=== PATIENT | female | born 1980 | race Caucasian/White ===

== ENCOUNTER 2017-12-05 16:52 | Emergency (ER) | payer OTHER, SELFPAY ==
--- NOTE | 2017-12-05 18:19 | EDPHYS ---
Physician Documentation [facility] Name: Susana Tamayo Age: 37 yrs Sex: Female : 1980 Arrival Date: 12/05/2017 Time: 16:58 Bed 13 Private MD: ED Physician Piero Velasquez HPI: 12/05 18:00 This 37 yrs old Female presents to ER via Ambulatory with complaints of pm1 Cramps. 18:00 The patient presents with Menstrual cramps. Onset: The symptoms/episode began/occurred pm1 yesterday. Associated signs and symptoms: Pertinent negatives: constipation, diarrhea, dysuria, fever, nausea, vomiting. Severity of symptoms: in the emergency department the symptoms are actually worse. The patient has experienced similar episodes in the past, and the symptoms today are exactly the same. The patient has not recently seen a physician. Patient complaining of increased vaginal cramping pain with her menses. Patient started her menses yesterday and reports that she usually takes Midol for her menstrual cramps. Midol did not work today so she presenting to the ER for further evalution. 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 - Social history:: Smoking status: Patient uses tobacco products, smokes one-half pack cigarettes per day. ROS: 18:00 Positive for Menstrual cramps. pm1 18:00 Constitutional: Negative for fever, chills, and weight loss, Eyes: Negative for injury, pain, redness, and discharge, ENT: Negative for injury, pain, and discharge, Neck: Negative for injury, pain, and swelling, Cardiovascular: Negative for chest pain, palpitations, and edema, Respiratory: Negative for shortness of breath, cough, wheezing, and pleuritic chest pain, Abdomen/GI: Negative for abdominal pain, nausea, vomiting, diarrhea, and constipation, Back: Negative for injury and pain. 18:00 MS/Extremity: Negative for injury and deformity, Skin: Negative for injury, rash, and discoloration, Neuro: Negative for headache, weakness, numbness, tingling, and seizure. Exam: 18:00 Constitutional: This is a well developed, well nourished patient who is awake, alert, pm1 and in no acute distress. Head/Face: Normocephalic, atraumatic. Eyes: Pupils equal round and reactive to light, extra-ocular motions intact. Lids and lashes normal. Conjunctiva and sclera are non-icteric and not injected. Cornea within normal limits. Periorbital areas with no swelling, redness, or edema. ENT: Nares patent. No nasal discharge, no septal abnormalities noted. Tympanic membranes are normal and external auditory canals are clear. Oropharynx with no redness, swelling, or masses, exudates, or evidence of obstruction, uvula midline. Mucous membranes moist. Neck: Trachea midline, no thyromegaly or masses palpated, and no cervical lymphadenopathy. Supple, full range of motion without nuchal rigidity, or vertebral point tenderness. No Meningismus. Chest/axilla: Normal chest wall appearance and motion. Nontender with no deformity. No lesions are appreciated. Cardiovascular: Regular rate and rhythm with a normal S1 and S2. No gallops, murmurs, or rubs. Normal PMI, no JVD. No pulse deficits. Respiratory: Lungs have equal breath sounds bilaterally, clear to auscultation and percussion. No rales, rhonchi or wheezes noted. No increased work of breathing, no retractions or nasal flaring. 18:00 Back: No spinal tenderness. No costovertebral tenderness. Full range of motion. Skin: Warm, dry with normal turgor. Normal color with no rashes, no lesions, and no evidence of cellulitis. MS/ Extremity: Pulses equal, no cyanosis. Neurovascular intact. Full, normal range of motion. 18:00 Abdomen/GI: Inspection: abdomen appears normal, Bowel sounds: normal, Palpation: abdomen is soft and non-tender, in all quadrants, mass, is not appreciated, rebound tenderness, is not appreciated. 18:00 Neuro: Orientation: is normal, Motor: is normal, moves all fours. Vital Signs: 17:10 BP 116 / 79; Pulse 90; Resp 18; Temp 98.4; Pulse Ox 98% on R/A; Weight 68.04 kg; Height aj 5 ft. 8 in. (172.72 cm); 18:00 BP 123 / 86; Pulse 82; Resp 17; Pulse Ox 98% on R/A; rb1 17:10 Body Mass Index 22.81 (68.04 kg, 172.72 cm) aj [facility]: 17:22 Patient medically screened. pm1 18:07 Data reviewed: vital signs. Data interpreted: Pulse oximetry: on room air is 98 %. pm1 Interpretation: normal. Counseling: I had a detailed discussion with the patient and/or guardian regarding: the historical points, exam findings, and any diagnostic results supporting the discharge/admit diagnosis, lab results, the need for outpatient follow up, for definitive care, an OB/Gyne specialist. 18:16 ED course: Patient does not want any blood work performed, patient's symptoms the same pm1 as prior menses with cramping but the cramping is more intense. Will discharge patient home with additional pain medications to take with her midol. 12/05 18:00 Order name: Urine Dipstick--Ancillary (enter results) bd 12/05 18:00 Order name: Urine --Ancillary (enter results) bd 12/05 17:40 Order name: Urine Dipstick-Ancillary (obtain specimen); Complete Time: 17:55 pm1 12/05 17:40 Order name: Urine Test (obtain specimen); Complete Time: 17:54 pm1 Administered Medications: No medications were administered Disposition: 12/06 07:34 Co-signature as Attending Physician, Piero Velasquez MD I agree with the assessment and ryann plan of care. Disposition: 12/05/17 18:19 Discharged to Home. Impression: Dysmenorrhea, unspecified. - Condition is Stable. - Discharge Instructions: Dysmenorrhea. - Prescriptions for Tramadol 50 mg Oral Tablet - take 1 tablet by ORAL route every 8 hours as needed; 12 tablet. - Work release form, Medication Reconciliation Form, Thank You Letter, Prescription Opioid Use form. - Follow up: Emergency Department; When: As needed; Reason: Worsening of condition. Follow up: Gen Navarro MD; When: 2 - 3 days; Reason: Recheck today's complaints, Continuance of care, Re-evaluation by your physician. - Problem is new. - Symptoms have improved. Signatures: Dispatcher [employer] Liz Garvey RN RN aj Anderson, Corey, MD MD cha Barber, Rebecca, RN RN rb1 Rashad Abarca, JOB ANALYST JOB ANALYST pm1
--- NOTE | 2017-12-05 18:19 | ER ---
Nurse's Notes [facility] Name: Susana Tamayo Age: 37 yrs Sex: Female : 1980 Arrival Date: 12/05/2017 Time: 16:58 Bed 13 Private MD: Diagnosis: Dysmenorrhea, unspecified Presentation: 12/05 17:08 Presenting complaint: Patient states: Painful menstrual cramps today, unrelieved by jack burger. Transition of care: patient was not received from another setting of care. Onset of symptoms was December 05, 2017. Care prior to arrival: None. 17:08 Method Of Arrival: Ambulatory aj 17:08 Acuity: DIMPLE 4 aj Triage Assessment: 17:10 General: Appears in no apparent distress. comfortable, Behavior is calm, cooperative, aj appropriate for age. Pain: Complains of pain in pelvis. Neuro: Level of Consciousness is awake, alert, obeys commands, Oriented to person, place, time, situation. Respiratory: Airway is patent Respiratory effort is even, unlabored, Respiratory pattern is regular, symmetrical. GI: Abdomen is non-distended, obese. : Reports cramping. Derm: Skin is intact, is healthy with good turgor, Skin is pink, warm \T\ dry. normal. 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 - Social history:: Smoking status: Patient uses tobacco products, smokes one-half pack cigarettes per day. Screenin:21 Abuse screen: Denies threats or abuse. Nutritional screening: No deficits noted. rb1 Tuberculosis screening: No symptoms or risk factors identified. Fall Risk None identified. Assessment: 17:21 General: Appears in no apparent distress. comfortable, Behavior is calm, cooperative, rb1 Denies fever. Pain: Complains of pain in pelvis Pain currently is 10 out of 10 on a pain scale. Pain began this morning. Neuro: Level of Consciousness is awake, alert, obeys commands, Oriented to person, place, time, situation. Cardiovascular: Capillary refill < 3 seconds is brisk in bilateral fingers. Respiratory: Airway is patent Respiratory effort is even, unlabored, Respiratory pattern is regular, symmetrical. GI: Bowel sounds present X 4 quads. Abd is soft Abdomen is tender to palpation in suprapubic area. : No signs and/or symptoms were reported regarding the genitourinary system. Derm: Skin is pink, warm \T\ dry. 18:19 Reassessment: Patient appears in no apparent distress at this time. No changes from rb1 previously documented assessment. Vital Signs: 17:10 BP 116 / 79; Pulse 90; Resp 18; Temp 98.4; Pulse Ox 98% on R/A; Weight 68.04 kg; Height aj 5 ft. 8 in. (172.72 cm); 18:00 BP 123 / 86; Pulse 82; Resp 17; Pulse Ox 98% on R/A; rb1 17:10 Body Mass Index 22.81 (68.04 kg, 172.72 cm) aj ED Course: 16:58 Patient arrived in ED. mr 17:09 Triage completed. aj 17:10 Arm band placed on left wrist. Patient placed in waiting room, Patient notified of wait aj time. 17:21 Rashad Abarca NP is PHCP. pm1 17:21 Piero Velasquez MD is Attending Physician. pm1 17:21 Patient has correct armband on for positive identification. Bed in low position. Call rb1 light in reach. Side rails up X 1. Pulse ox on. NIBP on. 17:24 Liat Wheat, RN is Primary Nurse. rb1 18:17 Gen Navarro MD is Referral Physician. pm1 18:28 No provider procedures requiring assistance completed. IV discontinued, intact, rb1 bleeding controlled, No redness/swelling at site. Pressure dressing applied. Administered Medications: No medications were administered Outcome: 18:19 Discharge ordered by . pm1 18:28 Discharged to home ambulatory. rb1 18:28 Condition: stable 18:28 Discharge instructions given to patient, Instructed on discharge instructions, follow up and referral plans. Demonstrated understanding of instructions, follow-up care, medications, Prescriptions given X 1. 18:29 Patient left the ED. rb1 Signatures: Liz Marion RN RN aj Rivera, Maria mr Liat Wheat RN RN rb1 Rashad Abarca NP CLINICAL PROVIDER TRAINER pm1 Corrections: (The following items were deleted from the chart) 18:28 17:10 Missed attempt(s): 22 gauge hand. antecubital area. Labs were collected by Yogi, rb1 windows server support technician, but the IV went bad upon flushing NS.. rb1
[2017-12-05 18:36] VITALS: TEMP 98.4; O2SAT 98
[2017-12-05 18:37] VITALS: BP 123/86
[2017-12-05 18:51] LABS: Urine Blood 1+ (NEG); Urine Glucose NEGATIVE (NEG); Urine Protein NEGATIVE (NEG); Urine Specific Gravity 1.015 (1.005-1.030); Urine pH 6.5 (5.0-7.0)
== END 2017-12-05 18:29 | disposition home or self-care (01) ==
LOC: ER 16:52
DX: N94.6 Dysmenorrhea, unspecified (principal); F17.210 Nicotine dependence, cigarettes, uncomplicated; Z88.6 Allergy status to analgesic agent
CPT/HCPCS: 81003; 81025; 99283

== ENCOUNTER 2017-12-13 13:35 | Emergency (ER) | payer OTHER ==
[2017-12-13] MEDS ORDERED: NA CHLORIDE 0.9% 1,000 ML ONE (14:14)
[2017-12-13] MEDS ORDERED: DIPHENHYDRAMINE 50 MG/ML VIAL ONE (14:14)
[2017-12-13] MEDS ORDERED: ACETAMINOPHEN 500 MG TAB ONE (14:14)
[2017-12-13] MEDS ORDERED: DEXAMETHASONE 10 MG/ML VIAL ONE (14:14)
--- NOTE | 2017-12-13 14:30 | RAD REPORT ---
EXAM DESCRIPTION: CT - Head Brain Wo Cont - 12/13/2017 2:14 pm CLINICAL HISTORY: Headache and nausea COMPARISON: 2013 TECHNIQUE: Computed axial tomography of the head was obtained. IV contrast was not requested. All CT scans are performed using dose optimization technique as appropriate and may include automated exposure control or mA/KV adjustment according to patient size. FINDINGS: An intracranial bleed is not seen . The ventricles are normal in caliber. No extra-axial fluid collection is noted. Fluid within the sinuses/ mastoids is not seen. IMPRESSION: No acute intracranial abnormality is seen. If patient's symptoms persist MRI of the bra in would be recommended.
[2017-12-13] MEDS ORDERED: KETOROLAC 30 MG/ML INJ ONE (14:37)
[2017-12-13 14:59] LABS: Absolute Lymphocytes (CBC) 1.2 K/uL (0.7-4.9); Absolute Monocytes 0.4 K/uL (0.1-1.3); Absolute Neutrophil 5.8 K/uL (1.8-8.0); Basophils % 0.5 % (0-1.3); Eosinophils % 2.1 % (0-4.4); Hematocrit 38.9 % (36.0-45.0); Lymphocytes % 15.4 % (15.3-44.8); MCH 31.1 pg (27.0-35.0); MCV 91.2 fL (80-100); MPV 7.3 fL (7.6-11.3); Monocytes % 5.7 % (3.3-12.3); RBC Red Blood Cell Count 4.27 M/uL (3.86-4.86)
[2017-12-13 15:00] LABS: Protime INR 1.06
[2017-12-13] MEDS ORDERED: METOCLOPRAMIDE 10 MG/2mL INJ IV ONE (15:00)
[2017-12-13] MEDS ORDERED: PROCHLORPERAZINE IV ONE (15:00)
[2017-12-13 15:27] LABS: Urine Bacteria <20 /HPF (<20); Urine Culture Reflex Order NOT NEEDED; Urine Mucus 1+ /HPF (NONE SEEN); Urine RBC <5 /HPF (NONE SEEN)
[2017-12-13 15:57] LABS: Potassium 3.3 mEq/L (3.6-5.0)
[2017-12-13 15:58] LABS: Magnesium 1.9 mg/dL (1.8-2.5)
[2017-12-13 16:32] LABS: Urine Blood NEGATIVE (NEG); Urine Glucose NEGATIVE (NEG); Urine Protein NEGATIVE (NEG); Urine Specific Gravity 1.025 (1.005-1.030)
--- NOTE | 2017-12-13 16:50 | ER ---
Nurse's Notes [facility] Name: Susana Tamayo Age: 37 yrs Sex: Female : 1980 Arrival Date: 12/13/2017 Time: 13:36 Bed 30 Private MD: Diagnosis: headache Presentation: 12/13 13:53 Presenting complaint:. ph 13:54 Presenting complaint: Patient states: I have had a migraine since yesterday." Pt ph reports pain in entire head, nausea, sensitivity to light/sound, denies dizziness or vomiting, hx of migraines. Transition of care: patient was not received from another setting of care. Onset of symptoms was December 13, 2017. Care prior to arrival: None. 13:54 Method Of Arrival: Ambulatory ph 13:54 Acuity: DIMPLE 3 ph Triage Assessment: 17:49 Headache History: The patient has had previous headaches and this one is similar to lk1 previous episodes. General: Appears uncomfortable. Pain: Pain began 1 day ago. Also complains of nausea, photophobia, inability to work. Pain: Complains of pain in head. 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 - Social history:: Smoking status: Patient uses tobacco products, smokes one-half pack cigarettes per day. - Family history:: not pertinent. - Hospitalizations: : No recent hospitalization is reported. Screenin:46 Abuse screen: Denies threats or abuse. Denies injuries from another. Nutritional lk1 screening: No deficits noted. Tuberculosis screening: No symptoms or risk factors identified. Fall Risk Total Kapoor Fall Scale indicates No Risk (0-24 pts). Assessment: 14:15 General: Appears uncomfortable, Behavior is calm, cooperative, appropriate for age. lk1 Pain: Complains of pain in head Pain currently is 10 out of 10 on a pain scale. Neuro: Level of Consciousness is awake, alert, obeys commands, Oriented to person, place, time, situation, Moves all extremities. Full function Gait is steady, Speech is normal, Facial symmetry appears normal, Pupils are PERRLA. Neuro: Reports headache since yesterday afternoon. Cardiovascular: Heart tones S1 S2 present Capillary refill is brisk Patient's skin is warm and dry. Respiratory: Airway is patent Respiratory effort is even, unlabored, Respiratory pattern is regular, symmetrical, Breath sounds are clear bilaterally. GI: Abdomen is non-distended, Bowel sounds present X 4 quads. : No signs and/or symptoms were reported regarding the genitourinary system. EENT: No signs and/or symptoms were reported regarding the EENT system. Derm: No signs and/or symptoms reported regarding the dermatologic system. Musculoskeletal: No signs and/or symptoms reported regarding the musculoskeletal system. 15:00 Reassessment: Patient and/or family updated on plan of care and expected duration. Pain lk1 level reassessed. Patient is alert, oriented x 3, equal unlabored respirations, skin warm/dry/pink. Patient states feeling better. 17:00 Reassessment: Patient and/or family updated on plan of care and expected duration. Pain lk1 level reassessed. Patient is alert, oriented x 3, equal unlabored respirations, skin warm/dry/pink. Patient states feeling better. Patient states symptoms have improved. General:. Vital Signs: 13:55 BP 120 / 83; Pulse 68; Resp 18; Temp 98.2; Pulse Ox 99% on R/A; Weight 72.57 kg; Height ph 5 ft. 8 in. (172.72 cm); Pain 10/10; 14:34 BP 112 / 65; Pulse 86; Resp 17; Temp 98.5(O); Pulse Ox 99% on R/A; mh5 15:25 BP 113 / 77; Pulse 73; Resp 15; Temp 98.5(O); Pulse Ox 97% ; mh5 16:19 BP 127 / 85; Pulse 73; Resp 17; Pulse Ox 97% on R/A; mh5 17:00 BP 120 / 82; Pulse 67; Resp 16; Pulse Ox 97% on R/A; Pain 8/10; lk1 13:55 Body Mass Index 24.33 (72.57 kg, 172.72 cm) ph ED Course: 13:36 Patient arrived in ED. as 13:42 Jerardo Booker MD is Attending Physician. wa 13:55 Triage completed. ph 14:11 Kluge, Reta, RN is Primary Nurse. lk1 14:14 CT Head Brain wo Cont In Process Unspecified. EDMS 14:35 Inserted saline lock: 20 gauge in right antecubital area, using aseptic technique. lk1 Blood collected. 14:41 Arm band placed on right wrist. lk1 14:46 Patient has correct armband on for positive identification. Placed in gown. Bed in low lk1 position. Call light in reach. Adult w/ patient. 16:49 Francisco Albert MD is Referral Physician. wa 17:49 No provider procedures requiring assistance completed. IV discontinued, intact, lk1 bleeding controlled, No redness/swelling at site. Pressure dressing applied. Administered Medications: 14:32 Drug: Tylenol 1000 mg Route: PO; lk1 15:30 Follow up: Response: No adverse reaction; Marked relief of symptoms; Pain is decreased lk1 14:35 Drug: NS 0.9% 1000 ml Route: IV; Rate: 1000 ml; Site: right antecubital; lk1 15:30 Follow up: Response: No adverse reaction; IV Status: Completed infusion lk1 14:36 Drug: Decadron - Dexamethasone 10 mg Route: IVP; Site: right antecubital; lk1 15:00 Follow up: Response: No adverse reaction; Marked relief of symptoms lk1 14:38 Drug: Benadryl 12.5 mg Route: IVP; Site: right antecubital; lk1 15:00 Follow up: Response: No adverse reaction; Marked relief of symptoms lk1 14:40 Drug: Reglan 5 mg Route: IVP; Site: right antecubital; lk1 15:00 Follow up: Response: No adverse reaction lk1 14:41 CANCELLED (Physician Discretion): Compazine 5 mg IVP once lk1 14:43 Drug: TORadol 30 mg Route: IVP; Site: right antecubital; lk1 15:00 Follow up: Response: No adverse reaction; Pain is decreased lk1 17:11 Drug: Potassium Chloride 40 mEq Route: PO; lk1 17:40 Follow up: Response: No adverse reaction lk1 Outcome: 16:49 Discharge ordered by . wa 17:45 Patient left the ED. lk1 17:50 Discharged to home ambulatory, with family. lk1 17:50 Condition: good 17:50 Discharge instructions given to patient, Instructed on discharge instructions, follow up and referral plans. medication usage, safety practices, Demonstrated understanding of instructions, follow-up care, medications, Prescriptions given X 2. Signatures: Dispatcher [employer] Marlene Crawford Patricia, RN RN Reta Palafox RN RN 1 Apple Tavares [facility] Jerardo Booker MD MD [place]
--- NOTE | 2017-12-13 16:50 | EDPHYS ---
Physician Documentation [facility] Name: Susana Tamayo Age: 37 yrs Sex: Female : 1980 Arrival Date: 12/13/2017 Time: 13:36 Bed 30 Private MD: ED Physician Jerardo Booker HPI: 12/13 16:31 This 37 yrs old Female presents to ER via Ambulatory with complaints of wa Headache. 16:31 The patient complains of pain to the diffuse. The patient describes the headache as wa aching, pounding. Onset: The symptoms/episode began/occurred 2 day(s) ago. Associated signs and symptoms: The patient has no apparent associated signs or symptoms. Severity of symptoms: At its worst the pain was moderate, in the emergency department the pain is unchanged. Headache History: The patient has had previous headaches and this one is similar to previous episodes. The symptoms are alleviated by nothing. the symptoms are aggravated by nothing. The patient has not experienced similar symptoms in the past. The patient has not recently seen a physician. 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 - Social history:: Smoking status: Patient uses tobacco products, smokes one-half pack cigarettes per day. - Family history:: not pertinent. - Hospitalizations: : No recent hospitalization is reported. ROS: 16:34 Constitutional: Negative for fever, chills, and weight loss, Eyes: Negative for injury, wa pain, redness, and discharge, ENT: Negative for injury, pain, and discharge, Neck: Negative for injury, pain, and swelling, Cardiovascular: Negative for chest pain, palpitations, and edema, Respiratory: Negative for shortness of breath, cough, wheezing, and pleuritic chest pain, Abdomen/GI: Negative for abdominal pain, nausea, vomiting, diarrhea, and constipation, Back: Negative for injury and pain, : Negative for injury, bleeding, discharge, and swelling, MS/Extremity: Negative for injury and deformity, Skin: Negative for injury, rash, and discoloration. 16:34 Neuro: Positive for headache, Negative for altered mental status, dizziness, gait disturbance, syncope. 16:34 All other systems are negative. Exam: 16:34 Constitutional: This is a well developed, well nourished patient who is awake, alert, wa and in no acute distress. Head/Face: Normocephalic, atraumatic. Eyes: Pupils equal round and reactive to light, extra-ocular motions intact. Lids and lashes normal. Conjunctiva and sclera are non-icteric and not injected. Cornea within normal limits. Periorbital areas with no swelling, redness, or edema. ENT: Nares patent. No nasal discharge, no septal abnormalities noted. Tympanic membranes are normal and external auditory canals are clear. Oropharynx with no redness, swelling, or masses, exudates, or evidence of obstruction, uvula midline. Mucous membranes moist. Neck: Trachea midline, no thyromegaly or masses palpated, and no cervical lymphadenopathy. Supple, full range of motion without nuchal rigidity, or vertebral point tenderness. No Meningismus. Cardiovascular: Regular rate and rhythm with a normal S1 and S2. No gallops, murmurs, or rubs. Normal PMI, no JVD. No pulse deficits. Respiratory: Lungs have equal breath sounds bilaterally, clear to auscultation and percussion. No rales, rhonchi or wheezes noted. No increased work of breathing, no retractions or nasal flaring. Abdomen/GI: Soft, non-tender, with normal bowel sounds. No distension or tympany. No guarding or rebound. No evidence of tenderness throughout. Back: No spinal tenderness. No costovertebral tenderness. Full range of motion. Skin: Warm, dry with normal turgor. Normal color with no rashes, no lesions, and no evidence of cellulitis. MS/ Extremity: Pulses equal, no cyanosis. Neurovascular intact. Full, normal range of motion. Psych: Awake, alert, with orientation to person, place and time. Behavior, mood, and affect are within normal limits. 16:34 Neuro: Orientation: is normal, Mentation: is normal, Cranial nerves: grossly normal, Cerebellar function: is grossly normal, Motor: is normal. Vital Signs: 13:55 BP 120 / 83; Pulse 68; Resp 18; Temp 98.2; Pulse Ox 99% on R/A; Weight 72.57 kg; Height ph 5 ft. 8 in. (172.72 cm); Pain 10/10; 14:34 BP 112 / 65; Pulse 86; Resp 17; Temp 98.5(O); Pulse Ox 99% on R/A; mh5 15:25 BP 113 / 77; Pulse 73; Resp 15; Temp 98.5(O); Pulse Ox 97% ; mh5 16:19 BP 127 / 85; Pulse 73; Resp 17; Pulse Ox 97% on R/A; mh5 17:00 BP 120 / 82; Pulse 67; Resp 16; Pulse Ox 97% on R/A; Pain 8/10; lk1 13:55 Body Mass Index 24.33 (72.57 kg, 172.72 cm) ph MDM: 13:42 Patient medically screened. tn 16:35 Differential diagnosis: WRIGHT, intermittent. [address] in the past. will check tn CT brain. will treat pain and reassess. Data reviewed: vital signs, nurses notes. Test interpretation: by ED physician or midlevel provider: . 16:47 Test interpretation: by ED physician or midlevel provider: labs noted for low K. Head wa CT negative for acute process. Response to treatment: the patient's symptoms have markedly improved after treatment, the patient's symptoms have resolved after treatment. ED course: will d/c home with close f/u with neurology. 12/13 14:03 Order name: Urine Microscopic Only; Complete Time: 16:14 12/13 14:03 Order name: Basic Metabolic Panel; Complete Time: 16:14 12/13 14:03 Order name: CBC with Diff; Complete Time: 16:14 12/13 14:03 Order name: Magnesium; Complete Time: 16:14 12/13 14:03 Order name: Protime (+inr); Complete Time: 16:14 12/13 15:23 Order name: Urine Dipstick--Ancillary (enter results) 12/13 14:03 Order name: CT Head Brain wo Cont; Complete Time: 14:33 12/13 15:23 Order name: Urine --Ancillary (enter results) 12/13 14:03 Order name: Urine Test (obtain specimen); Complete Time: 14:46 12/13 14:03 Order name: IV Saline Lock; Complete Time: 14:45 12/13 14:03 Order name: Labs collected and sent; Complete Time: 14:45 tn 12/13 14:03 Order name: NPO; Complete Time: 14:45 tn 12/13 14:03 Order name: O2 Sat Monitoring; Complete Time: 14:45 tn 12/13 14:03 Order name: Urine Dipstick-Ancillary (obtain specimen); Complete Time: 14:45 tn Administered Medications: 14:32 Drug: Tylenol 1000 mg Route: PO; lk1 15:30 Follow up: Response: No adverse reaction; Marked relief of symptoms; Pain is decreased lk1 14:35 Drug: NS 0.9% 1000 ml Route: IV; Rate: 1000 ml; Site: right antecubital; lk1 15:30 Follow up: Response: No adverse reaction; IV Status: Completed infusion lk1 14:36 Drug: Decadron - Dexamethasone 10 mg Route: IVP; Site: right antecubital; lk1 15:00 Follow up: Response: No adverse reaction; Marked relief of symptoms lk1 14:38 Drug: Benadryl 12.5 mg Route: IVP; Site: right antecubital; lk1 15:00 Follow up: Response: No adverse reaction; Marked relief of symptoms lk1 14:40 Drug: Reglan 5 mg Route: IVP; Site: right antecubital; lk1 15:00 Follow up: Response: No adverse reaction lk1 14:41 CANCELLED (Physician Discretion): Compazine 5 mg IVP once lk1 14:43 Drug: TORadol 30 mg Route: IVP; Site: right antecubital; lk1 15:00 Follow up: Response: No adverse reaction; Pain is decreased lk1 17:11 Drug: Potassium Chloride 40 mEq Route: PO; lk1 17:40 Follow up: Response: No adverse reaction lk1 Disposition: 12/13/17 16:49 Discharged to Home. Impression: headache. - Condition is Stable. - Discharge Instructions: General Headache Without Cause, [id number]. - Prescriptions for ketorolac 10 mg Oral tablet - take 1 tablet by ORAL route every 8 hours not to exceed 40 mg in 24hrs; 20 tablet. Compazine 10 mg Oral Tablet - take 1 tablet by ORAL route every 8 hours As needed; 10 tablet. - Work release form, Medication Reconciliation Form, Thank You Letter, Antibiotic Education, Prescription Opioid Use form. - Follow up: [place], [place], MD; When: 2 - 3 days; Reason: Recheck today's complaints. - Problem is new. - Symptoms have improved. - Notes: follow up with the neurologist as discussed. take the medicines prescribed as needed for pain Signatures: Dispatcher [employer] EDConsuelo Rios RN RN Reta Palafox RN RN lk1 Jerardo Booker MD MD wa Corrections: (The following items were deleted from the chart) 14:41 14:05 Compazine 5 mg IVP once ordered. cammy lk1
[2017-12-13] MEDS ORDERED: POTASSIUM CL SA 10 MEQ TAB PO ONE (16:55)
[2017-12-13 17:54] VITALS: TEMP 98.5
[2017-12-13 17:55] VITALS: O2SAT 97
[2017-12-13 17:57] VITALS: BP 120/82
== END 2017-12-13 17:45 | disposition home or self-care (01) ==
LOC: ER 13:35
DX: R51 Headache (principal); F17.210 Nicotine dependence, cigarettes, uncomplicated; Z88.6 Allergy status to analgesic agent
CPT/HCPCS: 36415; 70450; 80048; 81003; 81015; 81025; 83735; 85025; 85610; 96361; 96374; 96375; 99284; J1100; J2765; J7030

== ENCOUNTER 2018-02-15 16:52 | Emergency (ER) | payer OTHER, SELFPAY ==
[2018-02-15] MEDS ORDERED: NA CHLORIDE 0.9% 1,000 ML ONE (17:51)
[2018-02-15 18:04] LABS: Urine Blood NEGATIVE (NEG); Urine Glucose NEGATIVE (NEG); Urine Protein NEGATIVE (NEG); Urine Specific Gravity <1.005 (1.005-1.030); Urine pH 5.5 (5.0-7.0)
[2018-02-15 18:11] LABS: Absolute Lymphocytes (CBC) 1.6 K/uL (0.7-4.9); Absolute Monocytes 0.6 K/uL (0.1-1.3); Absolute Neutrophil 5.8 K/uL (1.8-8.0); Basophils % 0.5 % (0-1.3); Eosinophils % 2.7 % (0-4.4); Lymphocytes % 19.4 % (15.3-44.8); MCH 31.4 pg (27.0-35.0); MCV 91.3 fL (80-100); MPV 7.3 fL (7.6-11.3); Monocytes % 6.9 % (3.3-12.3); RBC Red Blood Cell Count 4.16 M/uL (3.86-4.86)
[2018-02-15 18:20] LABS: Bicarbonate 26 mEq/L (21-31); Glucose Level 105 mg/dL (65-120); Potassium 3.5 mEq/L (3.6-5.0); Sodium Level 134 mEq/L (135-145); Urine Bacteria <20 /HPF (<20); Urine Culture Reflex Order NOT NEEDED; Urine RBC <5 /HPF (NONE SEEN)
[2018-02-15 18:35] LABS: BUN Blood Urea Nitrogen < 5 mg/dL (6-20)
[2018-02-15] MEDS ORDERED: AZITHROMYCIN 250 MG TAB ONE (18:49)
[2018-02-15] MEDS ORDERED: KETOROLAC 30 MG/ML INJ ONE (18:50)
[2018-02-15] MEDS ORDERED: CEFTRIAXONE/SWI 1gm 1 GM/10 ML SYR ONE (18:51)
--- NOTE | 2018-02-15 18:52 | RAD REPORT ---
EXAM DESCRIPTION: US - Transvaginal Study Probe - 02/15/2018 6:31 pm CLINICAL HISTORY: Pelvic pain COMPARISON: none FINDINGS: The uterus measures 8 x 4 x 5cm. A 2 centimeter echogenic structure is present within the uterine fundus. The endometrial stripe measures 8 millimeters. The ovaries are normal in size and echotexture. A 1.7 centimeter follicle is present within the right ovary which is irregularly shaped. No significant free fluid is seen. IMPRESSION: 1.7 centimeter irregularly-shaped right ovarian follicle may have recently ruptured. Sig nificant free fluid is not noted. Possible 2 centimeter uterine fibroid
--- NOTE | 2018-02-15 19:09 | EDPHYS ---
Physician Documentation [facility] Name: Susana Tamayo Age: 37 yrs Sex: Female : 1980 Arrival Date: 02/15/2018 Time: 16:56 Bed 20 Private MD: None, None ED Physician Kyle Bae HPI: 02/15 17:42 This 37 yrs old Female presents to ER via Ambulatory with complaints of cp Vaginal Pain. 17:42 The patient presents with pelvic pain, that is located in/on the pelvis. cp 17:42 Onset: The symptoms/episode began/occurred today. cp 17:42 Associated signs and symptoms: Pertinent positives: pain worse when urinating but cp patient denies burning with urination, Pertinent negatives: fever. 17:42 The patient is sexually active, does not use protection during intercourse, patient cp reports new partner. The patient's method of control includes tubal ligation. 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 - Social history:: Smoking status: Patient uses tobacco products, smokes one-half pack cigarettes per day. - Ebola Screening: : Patient denies travel to an Ebola-affected area in the 21 days before illness onset. ROS: 17:50 Constitutional: Negative for body aches, chills, fever, poor PO intake. cp 17:50 Eyes: Negative for injury, pain, redness, and discharge. cp 17:50 ENT: Negative for drainage from ear(s), ear pain, sore throat, difficulty swallowing, difficulty handling secretions. 17:50 Cardiovascular: Negative for chest pain, edema, palpitations. 17:50 Respiratory: Negative for cough, shortness of breath, wheezing. 17:50 Abdomen/GI: Negative for nausea, vomiting, and diarrhea, abdominal cramps, black/tarry stool, rectal bleeding. 17:50 : Positive for pelvic pain, vaginal pain, Negative for urinary symptoms, vaginal bleeding, vaginal discharge. 17:50 Skin: Negative for cellulitis, rash. 17:50 Neuro: Negative for altered mental status, headache, weakness. 17:50 All other systems are negative. Exam: 18:00 Constitutional: The patient appears in no acute distress, alert, awake, non-toxic, well cp developed, well nourished. 18:00 Head/Face: Normocephalic, atraumatic. cp 18:00 Eyes: Periorbital structures: appear normal, Conjunctiva: normal, no exudate, no injection, Sclera: no appreciated abnormality, Lids and lashes: appear normal, bilaterally. 18:00 ENT: External ear(s): are unremarkable, Nose: is normal, Mouth: is normal, no lip abnormalities, no mucosal abnormalities, Posterior pharynx: is normal, airway is patent, no erythema, no exudate. 18:00 Neck: ROM/movement: is normal, is supple, without pain, no range of motions limitations. 18:00 Chest/axilla: Inspection: normal, Palpation: is normal, no crepitus, no tenderness. 18:00 Cardiovascular: Rate: normal, Rhythm: regular. 18:00 Respiratory: the patient does not display signs of respiratory distress, Respirations: normal, no use of accessory muscles, no retractions, no splinting, no tachypnea. 18:00 Abdomen/GI: Inspection: abdomen appears normal, Bowel sounds: active, all quadrants, Palpation: soft, in all quadrants, mild abdominal tenderness, in the suprapubic area, rebound tenderness, is not appreciated, voluntary guarding, is not appreciated, involuntary guarding, is not appreciated. 18:00 Back: pain, is absent, ROM is normal. 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 18:00 Skin: cellulitis, is not appreciated, no rash present. Vital Signs: 17:05 BP 137 / 89; Pulse 98; Resp 18; Temp 98.5(O); Pulse Ox 97% on R/A; Height 5 ft. 8 in. aj1 (172.72 cm) (R); Pain 10/10; MDM: 17:11 Patient medically screened. cp 18:00 Differential diagnosis: ectopic , ovarian cyst, pelvic inflammatory disease, cp urinary tract infection, vaginosis. 19:07 Data reviewed: vital signs, nurses notes, lab test result(s), radiologic studies, cp ultrasound. Counseling: I had a detailed discussion with the patient and/or guardian regarding: the historical points, exam findings, and any diagnostic results supporting the discharge/admit diagnosis, lab results, radiology results, the need for outpatient follow up, an OB/Gyne specialist. 02/15 17:26 Order name: Urine Microscopic Only; Complete Time: 18:41 cp 02/15 17:26 Order name: GC (GONORR/CHLAMYDIA) Probe cp 02/15 17:26 Order name: Wet Prep; Complete Time: 18:41 cp 02/15 17:26 Order name: Urine Dipstick--Ancillary (enter results); Complete Time: 18:41 iw 02/15 17:32 Order name: Test, Serum; Complete Time: 18:41 iw 02/15 18:41 Interpretation: Reviewed. cp 02/15 17:44 Order name: CBC with Diff; Complete Time: 18:41 cp 02/15 18:41 Interpretation: Normal except: MPV 7.3. cp 02/15 17:26 Order name: Urine Dipstick-Ancillary (obtain specimen); Complete Time: 17:26 cp 02/15 17:44 Order name: US Transvaginal Study (Probe); Complete Time: 19:06 cp 02/15 17:44 Order name: BMP; Complete Time: 18:41 cp 02/15 18:41 Interpretation: Normal except: NA 134; K 3.5; BUN < 5. cp 02/15 17:26 Order name: Pelvic Exam Setup; Complete Time: 17:31 cp Administered Medications: 17:45 Drug: NS 0.9% 1000 ml Route: IV; Rate: 1 bolus; Site: right antecubital; hj 19:24 Follow up: Response: No adverse reaction; IV Status: Completed infusion; IV Intake: jd3 1000ml 18:42 Drug: Zithromax 1 grams Route: PO; hj 18:54 Follow up: Response: No adverse reaction hj 18:42 Drug: Rocephin - (cefTRIAXone) 1 grams Route: IVPB; Infused Over: 30 mins; Site: right hj antecubital; 18:54 Follow up: IV Status: Completed infusion hj 18:42 Drug: TORadol 30 mg Route: IVP; Site: right antecubital; hj 18:54 Follow up: Response: No adverse reaction; Pain is decreased Disposition: 02/15/18 19:09 Discharged to Home. Impression: Abdominal and pelvic pain. - Condition is Stable. - Discharge Instructions: Pelvic Pain, Female, Abdominal Pain, Women. - Prescriptions for Ibuprofen 800 mg Oral Tablet - take 1 tablet by ORAL route every 8 hours As needed take with food; 30 tablet. Doxycycline Hyclate 100 mg Oral Tablet - take 1 tablet by ORAL route every 12 hours; 20 tablet. Metronidazole 500 mg Oral Tablet - take 1 tablet by ORAL route every 8 hours; 30 tablet. - Medication Reconciliation Form, Thank You Letter, Antibiotic Education, Prescription Opioid Use form. - Follow up: Joseph Walton MD; When: 1 week; Reason: Recheck today's complaints. - Problem is new. - Symptoms have improved. Addendum: 02/20/2018 11:15 Co-signature as Attending Physician, Kyle Bae MD. r n Signatures: Dispatcher [employer] EDMeron Mcallister RN RN aj1 Kyle Bae MD MD rn Joaquin, Henry, RN RN hj Page, Corey, PA PA cp Yung Molina RN RN jd3 Corrections: (The following items were deleted from the chart) 02/15 17:29 17:26 Urine Test ordered. cp 19:25 19:09 02/15/2018 19:09 Discharged to Home. Impression: Abdominal and pelvic pain. jd3 Condition is Stable. Forms are Medication Reconciliation Form, Thank You Letter, Antibiotic Education, Prescription Opioid Use. Follow up: Joseph Walton; When: 1 week; Reason: Recheck today's complaints. Problem is new. Symptoms have improved. cp 02/16 17:39 02/15 17:42 Associated signs and symptoms: Pertinent positives: cp cp
--- NOTE | 2018-02-15 19:09 | ER ---
Nurse's Notes [facility] Name: Susana Tamayo Age: 37 yrs Sex: Female : 1980 Arrival Date: 02/15/2018 Time: 16:56 Bed 20 Private MD: None, None Diagnosis: Abdominal and pelvic pain Presentation: 02/15 17:00 Presenting complaint: Patient states: Stabbing pain in the vagina that is worse when aj1 she urinates since about 10:00 this morning. Denies burning with urination, vaginal discharge, vaginal bleeding. Transition of care: patient was not received from another setting of care. Onset of symptoms was February 15, 2018 at 10:00. Risk Assessment: Do you want to hurt yourself or someone else? Patient reports no desire to harm self or others. Initial Sepsis Screen: Does the patient meet any 2 criteria? No. Patient's initial sepsis screen is negative. Does the patient have a suspected source of infection? No. Patient's initial sepsis screen is negative. Care prior to arrival: None. 17:00 Method Of Arrival: Ambulatory aj 17:00 Acuity: DIMPLE 3 aj1 Triage Assessment: 17:05 General: Appears in no apparent distress. comfortable, Behavior is calm, cooperative, aj1 appropriate for age. Pain: Complains of pain in pelvis Pain does not radiate. Pain currently is 10 out of 10 on a pain scale. Quality of pain is described as shooting, stabbing, Pain began 5 hours ago Is continuous, Alleviated by nothing. Aggravated by urination. 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 - Social history:: Smoking status: Patient uses tobacco products, smokes one-half pack cigarettes per day. - Ebola Screening: : Patient denies travel to an Ebola-affected area in the 21 days before illness onset. Screenin:09 Abuse screen: Denies threats or abuse. Denies injuries from another. Nutritional hj screening: No deficits noted. Tuberculosis screening: No symptoms or risk factors identified. Fall Risk None identified. Assessment: 17:10 General: Appears in no apparent distress. uncomfortable, Behavior is calm, cooperative, hj appropriate for age. Pain: Complains of pain in vaginal opening. Neuro: Level of Consciousness is awake, alert, obeys commands, Oriented to person, place, time, situation, Appropriate for age. Cardiovascular: Capillary refill < 3 seconds Patient's skin is warm and dry. Respiratory: Airway is patent Respiratory effort is even, unlabored, Respiratory pattern is regular, symmetrical. GI: No signs and/or symptoms were reported involving the gastrointestinal system. : EENT: No signs and/or symptoms were reported regarding the EENT system. Derm: No deficits noted. No signs and/or symptoms reported regarding the dermatologic system. Musculoskeletal: No signs and/or symptoms reported regarding the musculoskeletal system. 17:30 Reassessment: Piero Marie notified that urine specific gravity was <1.005 and UPT will iw be invalid, advised to draw serum if needed. 19:24 Reassessment: Patient appears in no apparent distress at this time. No changes from jd3 previously documented assessment. Patient and/or family updated on plan of care and expected duration. Pain level reassessed. Patient is alert, oriented x 3, equal unlabored respirations, skin warm/dry/pink. pt reported understanding of discharge instructions, even and steady gait upon discharge. Patient states feeling better. Vital Signs: 17:05 BP 137 / 89; Pulse 98; Resp 18; Temp 98.5(O); Pulse Ox 97% on R/A; Height 5 ft. 8 in. aj1 (172.72 cm) (R); Pain 10/10; ED Course: 16:56 Patient arrived in ED. mr 16:56 None, None is Private Physician. mr 17:04 Triage completed. aj1 17:05 Arm band placed on Patient placed in an exam room. aj1 17:09 Jeyson Marley, IBETH is Primary Nurse. hj 17:10 Piero Marie PA is PHCP. cp 17:10 Patient has correct armband on for positive identification. Placed in gown. Bed in low hj position. Call light in reach. Side rails up X 1. 17:11 Kyle Bae MD is Attending Physician. cp 17:53 Wet Prep Sent. ag 17:53 GC (GONORR/CHLAMYDIA) Probe Sent. ag 17:53 Test, Serum Sent. ag 17:54 US Transvaginal Study (Probe) Sent. ag 17:54 CBC with Diff Sent. ag 17:54 BMP Sent. ag 17:54 Urine Microscopic Only Sent. ag 17:55 Assist provider with pelvic exam: Set up pelvic tray. Performed by Piero vaughan Specimens sent to lab. Patient tolerated well. Inserted saline lock: 20 gauge in right antecubital area, using aseptic technique. Blood collected. 18:28 US Transvaginal Study (Probe) In Process Unspecified. EDMS 19:08 Joseph Walton MD is Referral Physician. cp 19:23 IV discontinued, intact, bleeding controlled, No redness/swelling at site. Pressure jd3 dressing applied. Administered Medications: 17:45 Drug: NS 0.9% 1000 ml Route: IV; Rate: 1 bolus; Site: right antecubital; hj 19:24 Follow up: Response: No adverse reaction; IV Status: Completed infusion; IV Intake: jd3 1000ml 18:42 Drug: Zithromax 1 grams Route: PO; hj 18:54 Follow up: Response: No adverse reaction hj 18:42 Drug: Rocephin - (cefTRIAXone) 1 grams Route: IVPB; Infused Over: 30 mins; Site: right hj antecubital; 18:54 Follow up: IV Status: Completed infusion hj 18:42 Drug: TORadol 30 mg Route: IVP; Site: right antecubital; hj 18:54 Follow up: Response: No adverse reaction; Pain is decreased hj Intake: 19:24 IV: 1000ml; Total: 1000ml. jd3 Outcome: 19:09 Discharge ordered by . cp 19:23 Discharged to home ambulatory, with family. jd3 19:23 Condition: stable 19:23 Discharge instructions given to patient, family, Instructed on discharge instructions, follow up and referral plans. medication usage, Demonstrated understanding of instructions, follow-up care, medications, Prescriptions given X 3. 19:25 Patient left the ED. jd3 Signatures: Dispatcher [employer] EDMS Merno Chowdhury RN RN aj1 Rivera, Maria mr Zina Suh RN RN iw Gallardo, Ana ag Joaquin, Henry, RN RN hj Page, Corey, PA PA cp Davies, Ynug, RN RN jd3
[2018-02-15 19:44] VITALS: BP 137/89; TEMP 98.5; O2SAT 97
[2018-02-18 20:06] LABS: C.trachomatis RNA,TMA Not Detected (Not Detected)
== END 2018-02-15 19:25 | disposition home or self-care (01) ==
LOC: ER 16:52
DX: R10.2 Pelvic and perineal pain (principal); Z88.5 Allergy status to narcotic agent; F41.9 Anxiety disorder, unspecified; J45.909 Unspecified asthma, uncomplicated; F32.9 Major depressive disorder, single episode, unspecified; K21.9 Gastro-esophageal reflux disease without esophagitis; G43.909 Migraine, unspecified, not intractable, without status migrainosus; F17.210 Nicotine dependence, cigarettes, uncomplicated
CPT/HCPCS: 36415; 76830; 80048; 81003; 81015; 84703; 85025; 87210; 87490; 87590; 96361; 96374; 96375; 99284; J0696; J7030

== ENCOUNTER 2019-05-18 12:00 | Emergency (ER) | payer SELFPAY ==
[2019-05-18 13:55] LABS: Urine Blood TRACE (NEG); Urine Glucose NEGATIVE (NEG); Urine Protein NEGATIVE (NEG); Urine pH 6.5 (5.0-7.0)
[2019-05-18] MEDS ORDERED: DIPHENHYDRAMINE 50 MG/ML VIAL ONE (15:06)
[2019-05-18] MEDS ORDERED: METOCLOPRAMIDE 10 MG/2mL INJ ONE (15:06)
[2019-05-18] MEDS ORDERED: KETOROLAC 30 MG/ML INJ ONE (15:06)
[2019-05-18] MEDS ORDERED: NA CHLORIDE 0.9% 1,000 ML ONE (15:07)
--- NOTE | 2019-05-18 15:15 | RAD REPORT ---
EXAM DESCRIPTION: CT - Head Brain Wo Cont - 05/18/2019 2:59 pm CLINICAL HISTORY: Headache COMPARISON: 2018 TECHNIQUE: Computed axial tomography of the head was obtained. IV contrast was not requested. All CT scans are performed using dose optimization technique as appropriate and may include automated exposure control or mA/KV adjustment according to patient size. FINDINGS: An intracranial bleed is not seen . The ventricles are normal in caliber. No extra-axial fluid collection is noted. Fluid within the sinuses/ mastoids is not seen. IMPRESSION: No acute intracranial abnormality is seen. If patient's symptoms persist MRI of the bra in would be recommended.
--- NOTE | 2019-05-18 16:29 | EDPHYS ---
Physician Documentation [facility] Name: Susana Tamayo Age: 39 yrs Sex: Female : 1980 Arrival Date: 05/18/2019 Time: 12:04 Bed 27 Private MD: ED Physician Sebas Mccollum HPI: 05/18 14:17 This 39 yrs old Female presents to ER via Ambulatory with complaints of pm1 Migraine. 14:17 The patient complains of pain to the forehead, right eye and left eye. The patient pm1 describes the headache as aching. 14:17 Onset: The symptoms/episode began/occurred 2 day(s) ago. Associated signs and symptoms: pm1 Pertinent positives: nausea, Photophobia Pertinent negatives: dizziness, neck stiffness, paresthesias, rash, vomiting, weakness. Severity of symptoms: in the emergency department the pain is actually worse. Headache History: The patient has had previous headaches and this one is different than previous episodes. The symptoms are alleviated by Darkened room, the symptoms are aggravated by lights. The patient has experienced similar episodes in the past, several times. The patient has not recently seen a physician, and does not have an established primary care provider. Patient hasn't taken her migraine headache medications for over 2 years. Historical: - Allergies: 12:06 Darvocet-N 100; sg - PMHx: 12:06 Anxiety; Asthma; Depression; GERD; Migraines; sg - PSHx: 12:06 shoulder surgery; Tubal ligation; sg - Immunization history:: Adult Immunizations up to date. - Social history:: Smoking status: Patient/guardian denies using tobacco. - Ebola Screening: : Patient negative for fever greater than or equal to 101.5 degrees Fahrenheit, and additional compatible Ebola Virus Disease symptoms Patient denies exposure to infectious person Patient denies travel to an Ebola-affected area in the 21 days before illness onset No symptoms or risks identified at this time. ROS: 14:17 Constitutional: Negative for fever, chills, and weight loss, Eyes: Negative for injury, pm1 pain, redness, and discharge, ENT: Negative for injury, pain, and discharge, Neck: Negative for injury, pain, and swelling, Cardiovascular: Negative for chest pain, palpitations, and edema, Respiratory: Negative for shortness of breath, cough, wheezing, and pleuritic chest pain, Abdomen/GI: Negative for abdominal pain, nausea, vomiting, diarrhea, and constipation, Back: Negative for injury and pain, MS/Extremity: Negative for injury and deformity, Skin: Negative for injury, rash, and discoloration. 14:17 Neuro: Positive for headache, Negative for altered mental status, numbness, tingling. Exam: 14:17 Constitutional: This is a well developed, well nourished patient who is awake, alert, pm1 and in no acute distress. Head/Face: Normocephalic, atraumatic. Eyes: Pupils equal round and reactive to light, extra-ocular motions intact. Lids and lashes normal. Conjunctiva and sclera are non-icteric and not injected. Cornea within normal limits. Periorbital areas with no swelling, redness, or edema. ENT: Nares patent. No nasal discharge, no septal abnormalities noted. Tympanic membranes are normal and external auditory canals are clear. Oropharynx with no redness, swelling, or masses, exudates, or evidence of obstruction, uvula midline. Mucous membranes moist. Neck: Trachea midline, no thyromegaly or masses palpated, and no cervical lymphadenopathy. Supple, full range of motion without nuchal rigidity, or vertebral point tenderness. No Meningismus. Chest/axilla: Normal chest wall appearance and motion. Nontender with no deformity. No lesions are appreciated. Cardiovascular: Regular rate and rhythm with a normal S1 and S2. No gallops, murmurs, or rubs. Normal PMI, no JVD. No pulse deficits. Respiratory: Lungs have equal breath sounds bilaterally, clear to auscultation and percussion. No rales, rhonchi or wheezes noted. No increased work of breathing, no retractions or nasal flaring. Abdomen/GI: Soft, non-tender, with normal bowel sounds. No distension or tympany. No guarding or rebound. No evidence of tenderness throughout. Back: No spinal tenderness. No costovertebral tenderness. Full range of motion. Skin: Warm, dry with normal turgor. Normal color with no rashes, no lesions, and no evidence of cellulitis. MS/ Extremity: Pulses equal, no cyanosis. Neurovascular intact. Full, normal range of motion. 14:17 Neuro: Orientation: is normal, Mentation: is normal, Memory: is normal, Cranial nerves: CN II- XII are normal as tested, Motor: moves all fours, Sensation: is normal, no obvious gross deficits. Vital Signs: 12:10 BP 133 / 86; Pulse 77; Resp 16; Temp 98.2; Pulse Ox 99% ; Pain 7/10; sg 14:45 BP 137 / 97; Pulse 70; Resp 15; Pulse Ox 99% on R/A; tr5 15:45 BP 125 / 88; Pulse 73; Resp 16; Pulse Ox 100% on R/A; tr5 MDM: 14:17 Patient medically screened. pm1 16:28 Data reviewed: vital signs. Data interpreted: Pulse oximetry: on room air is 100 %. pm1 Interpretation: normal. 16:39 Counseling: I had a detailed discussion with the patient and/or guardian regarding: the pm1 historical points, exam findings, and any diagnostic results supporting the discharge/admit diagnosis, radiology results, the need for outpatient follow up, a neurologist, to return to the emergency department if symptoms worsen or persist or if there are any questions or concerns that arise at home. 05/18 13:46 Order name: Urine Dipstick--Ancillary (enter results); Complete Time: 14:17 eb 05/18 13:46 Order name: Urine --Ancillary (enter results); Complete Time: 14:17 eb 05/18 14:39 Order name: CT Head Brain wo Cont; Complete Time: 15:22 pm1 05/18 14:39 Order name: IV Saline Lock; Complete Time: 16:17 pm1 Administered Medications: 15:27 Drug: Benadryl 25 mg Route: IVP; Site: left antecubital; tr5 16:12 Follow up: Response: Marked relief of symptoms tr5 15:27 Drug: NS 0.9% 1000 ml Route: IV; Rate: 1000 ml; Site: left antecubital; tr5 15:28 Drug: TORadol 30 mg Route: IVP; Site: left antecubital; tr5 16:13 Follow up: Response: No adverse reaction; Marked relief of symptoms tr5 15:29 Drug: Reglan 10 mg Route: IVP; Site: left antecubital; tr5 16:13 Follow up: Response: No adverse reaction; Marked relief of symptoms tr5 Disposition: 05/18/19 16:28 Discharged to Home. Impression: Headache. - Condition is Stable. - Discharge Instructions: General Headache Without Cause, Migraine Headache. - Prescriptions for Fiorinal 50- 325-40 mg Oral Capsule - take 1 capsule by ORAL route every 4 hours As needed - not to exceed 6 capsules per day; 20 capsule. - Medication Reconciliation Form, Thank You Letter, Antibiotic Education, Prescription Opioid Use, Work release form form. - Follow up: Emergency Department; When: As needed; Reason: Worsening of condition. Follow up: Private Physician; When: 2 - 3 days; Reason: Recheck today's complaints, Continuance of care, Re-evaluation by your physician. - Problem is new. - Symptoms have improved. Addendum: 05/20/2019 09:54 Co-signature as Attending Physician, Sebas Mccollum MD I agree with the assessment and k dr plan of care. Signatures: Dispatcher [employer] EDMS Brian Eid RN RN Sebas Mccollum MD MD kdr Rashad Abarca NP BLADE CHANGER pm1 Khurram Gregorio RN RN tr5 Corrections: (The following items were deleted from the chart) 05/18 16:39 14:17 Counseling: I had a detailed discussion with the patient and/or guardian pm1 regarding: the historical points, exam findings, and any diagnostic results supporting the discharge/admit diagnosis, radiology results, the need for outpatient follow up, a neurologist, to return to the emergency department if symptoms worsen or persist or if there are any questions or concerns that arise at home, pm1 16:48 16:28 05/18/2019 16:28 Discharged to Home. Impression: Headache. Condition is Stable. tr5 Forms are Medication Reconciliation Form, Thank You Letter, Antibiotic Education, Prescription Opioid Use. Follow up: Emergency Department; When: As needed; Reason: Worsening of condition. Follow up: Private Physician; When: 2 - 3 days; Reason: Recheck today's complaints, Continuance of care, Re-evaluation by your physician. Problem is new. Symptoms have improved. pm1
--- NOTE | 2019-05-18 16:29 | ER ---
Nurse's Notes [facility] Name: Susana Tamayo Age: 39 yrs Sex: Female : 1980 Arrival Date: 05/18/2019 Time: 12:04 Bed 27 Private MD: Diagnosis: Headache Presentation: 05/18 12:06 Transition of care: patient was not received from another setting of care. Onset of sg symptoms was May 18, 2019. Risk Assessment: Do you want to hurt yourself or someone else? Patient reports no desire to harm self or others. Initial Sepsis Screen: Does the patient meet any 2 criteria? No. Patient's initial sepsis screen is negative. Does the patient have a suspected source of infection? No. Patient's initial sepsis screen is negative. Care prior to arrival: None. 12:06 Acuity: DIMPLE 3 sg 12:06 Method Of Arrival: Ambulatory sg 12:11 Presenting complaint: Patient states: Pain in entire head, reports a hx of migraine but sg has not had any medication for several years due to not having a PCP, reports the pain is worse today then before but denies any pain in the neck or shoulders, denies N/V/D/Fever at this time. Triage Assessment: 13:51 General: Appears in no apparent distress. well groomed, well developed, well nourished, sg Behavior is calm, cooperative, appropriate for age. Historical: - Allergies: 12:06 Darvocet-N 100; sg - PMHx: 12:06 Anxiety; Asthma; Depression; GERD; Migraines; sg - PSHx: 12:06 shoulder surgery; Tubal ligation; sg - Immunization history:: Adult Immunizations up to date. - Social history:: Smoking status: Patient/guardian denies using tobacco. - Ebola Screening: : Patient negative for fever greater than or equal to 101.5 degrees Fahrenheit, and additional compatible Ebola Virus Disease symptoms Patient denies exposure to infectious person Patient denies travel to an Ebola-affected area in the 21 days before illness onset No symptoms or risks identified at this time. Screenin:45 Abuse screen: Denies threats or abuse. Nutritional screening: No deficits noted. tr5 Tuberculosis screening: No symptoms or risk factors identified. Fall Risk None identified. Assessment: 14:45 General: Appears uncomfortable, Behavior is calm, cooperative, appropriate for age. tr5 Pain: Complains of pain in face Pain does not radiate. Pain currently is 8 out of 10 on a pain scale. Quality of pain is described as aching, Pain began 1 day ago. Is continuous. Neuro: Level of Consciousness is awake, alert, obeys commands, Oriented to person, place, time, Compound Coating Machine Offbearer are equal bilaterally Moves all extremities. Reports headache in entire. Cardiovascular: Heart tones present Capillary refill < 3 seconds Pulses are all present. Edema is absent. Respiratory: Airway is patent Respiratory effort is even, unlabored, Respiratory pattern is regular, symmetrical. GI: No signs and/or symptoms were reported involving the gastrointestinal system. : No signs and/or symptoms were reported regarding the genitourinary system. EENT: No signs and/or symptoms were reported regarding the EENT system. Derm: Skin is intact, Skin is dry, Skin is normal, Skin temperature is warm. Musculoskeletal: Capillary refill < 3 seconds, Range of motion: intact in all extremities. 15:45 Reassessment: Patient appears in no apparent distress at this time. Patient and/or tr5 family updated on plan of care and expected duration. Pain level reassessed. Patient is alert, oriented x 3, equal unlabored respirations, skin warm/dry/pink. Vital Signs: 12:10 BP 133 / 86; Pulse 77; Resp 16; Temp 98.2; Pulse Ox 99% ; Pain 7/10; sg 14:45 BP 137 / 97; Pulse 70; Resp 15; Pulse Ox 99% on R/A; tr5 15:45 BP 125 / 88; Pulse 73; Resp 16; Pulse Ox 100% on R/A; tr5 ED Course: 12:04 Patient arrived in ED. rg4 12:06 Arm band placed on. sg 12:07 Triage completed. sg 13:51 Urine collected: clean catch specimen, raina colored. sg 14:11 Khurram Gregorio, IBETH is Primary Nurse. tr5 14:15 Rashad Abarca NP is PHCP. pm1 14:15 Sebas Mccollum MD is Attending Physician. pm1 14:45 Bed in low position. Call light in reach. Side rails up X 1. tr5 15:00 CT Head Brain wo Cont In Process Unspecified. EDMS 15:00 Inserted saline lock: 22 gauge in left antecubital area, using aseptic technique. tr5 16:46 No provider procedures requiring assistance completed. IV discontinued. tr5 Administered Medications: 15:27 Drug: Benadryl 25 mg Route: IVP; Site: left antecubital; tr5 16:12 Follow up: Response: Marked relief of symptoms tr5 15:27 Drug: NS 0.9% 1000 ml Route: IV; Rate: 1000 ml; Site: left antecubital; tr5 15:28 Drug: TORadol 30 mg Route: IVP; Site: left antecubital; tr5 16:13 Follow up: Response: No adverse reaction; Marked relief of symptoms tr5 15:29 Drug: Reglan 10 mg Route: IVP; Site: left antecubital; tr5 16:13 Follow up: Response: No adverse reaction; Marked relief of symptoms tr5 Outcome: 16:28 Discharge ordered by MD. pm1 16:46 Discharged to home ambulatory. tr5 16:46 Condition: stable 16:46 Discharge instructions given to patient, Instructed on discharge instructions, follow up and referral plans. medication usage, Demonstrated understanding of instructions, follow-up care, medications. 16:48 Patient left the ED. tr5 Signatures: Dispatcher [employer] EDBrian Kulkarni RN RN sg Marinas, Patrick, NP MACHINE PAN GREASER pm1 Mary Bolton rg4 Khurram Gregorio RN RN tr5
[2019-05-18 18:54] VITALS: TEMP 98.2
[2019-05-18 18:57] VITALS: BP 125/88; O2SAT 100
== END 2019-05-18 16:48 | disposition home or self-care (01) ==
LOC: ER 12:00
DX: R51 Headache (principal); Z88.5 Allergy status to narcotic agent
CPT/HCPCS: 70450; 81003; 81025; 96374; 96375; 99284; J2765; J7030

== ENCOUNTER 2019-10-16 22:40 | Emergency (ER) | payer SELFPAY ==
--- NOTE | 2019-10-17 00:02 | ER ---
Nurse's Notes [facility] Name: Susana Tamayo Age: 39 yrs Sex: Female : 1980 Arrival Date: 10/16/2019 Time: 22:45 Bed 15 Private MD: Diagnosis: Conjunctivitis-left eye;Acute upper respiratory infection, unspecified Presentation: 10/16 22:54 Presenting complaint: Patient states: redness and itching to L eye since she woke up aa1 this morning and has a cough for several days as well. Transition of care: patient was not received from another setting of care. Onset of symptoms was September 12, 2019. Risk Assessment: Do you want to hurt yourself or someone else? Patient reports no desire to harm self or others. Initial Sepsis Screen: Does the patient meet any 2 criteria? No. Patient's initial sepsis screen is negative. Does the patient have a suspected source of infection? No. Patient's initial sepsis screen is negative. Care prior to arrival: None. 22:54 Method Of Arrival: Ambulatory aa1 22:54 Acuity: DIMPLE 4 aa1 Triage Assessment: 22:56 General: Appears in no apparent distress. comfortable, Behavior is calm, cooperative, aa1 appropriate for age. Pain: Denies pain. Historical: - Allergies: 22:56 Darvocet-N 100; aa1 - Home Meds: 22:56 None [Active]; aa1 - PMHx: 22:56 Anxiety; Asthma; Depression; GERD; Migraines; aa1 - PSHx: 22:56 shoulder surgery; Tubal ligation; aa1 - Immunization history:: Flu vaccine is not up to date. - Coronavirus screen:: The patient has NOT traveled to [place] in the past 14 days. Proceed with normal triage process as indicated. - Social history:: Smoking status: Patient reports the use of cigarette tobacco products, smokes one-half pack cigarettes per day. - Ebola Screening: : Patient denies exposure to infectious person Patient denies travel to an Ebola-affected area in the 21 days before illness onset. Screenin:30 Abuse screen: Denies threats or abuse. Denies injuries from another. Nutritional ls4 screening: No deficits noted. Tuberculosis screening: No symptoms or risk factors identified. Fall Risk None identified. Assessment: 22:48 General: Appears in no apparent distress. uncomfortable, Behavior is calm, cooperative. ls4 Neuro: No deficits noted. Cardiovascular: No deficits noted. Respiratory: No deficits noted. GI: No deficits noted. : No deficits noted. EENT: Eyes are tearing on inner aspect of conjunctiva of left eye Sclera/Cornea are reddened in outer aspect of conjuctiva of left eye and inner aspect of conjunctiva of left eye Reports. Derm: No deficits noted. Musculoskeletal: No deficits noted. 23:41 Reassessment: Patient appears in no apparent distress at this time. Patient and/or ls4 family updated on plan of care and expected duration. Pain level reassessed. Patient is alert, oriented x 3, equal unlabored respirations, skin warm/dry/pink. 10/17 00:17 Reassessment: Patient appears in no apparent distress at this time. Patient and/or ls4 family updated on plan of care and expected duration. Pain level reassessed. Patient is alert, oriented x 3, equal unlabored respirations, skin warm/dry/pink. Vital Signs: 10/16 22:56 BP 147 / 88; Pulse 91; Resp 18; Temp 97.5; Pulse Ox 99% on R/A; Weight 81.65 kg; Height aa1 5 ft. 8 in. (172.72 cm); Pain 0/10; 10/17 00:21 BP 123 / 88; Pulse 88; Resp 18; Pulse Ox 99% on R/A; wh 10/16 22:56 Body Mass Index 27.37 (81.65 kg, 172.72 cm) aa1 ED Course: 10/16 22:45 Patient arrived in ED. ag3 22:49 Piero Marie PA is PHCP. cp 22:49 Kyle Bae MD is Attending Physician. cp 22:50 Arm band placed on. ls4 22:52 Patient placed in an exam room, on a stretcher. aa1 22:55 Triage completed. aa1 23:00 Patient has correct armband on for positive identification. Bed in low position. Call light in reach. Side rails up X 1. Pulse ox on. NIBP on. 23:03 Mary Ramirez, RN is Primary Nurse. ls4 23:08 Strep Sent. ls4 23:08 Influenza Screen (a \T\ B) Sent. ls4 02/13 00:19 No provider procedures requiring assistance completed. ls4 00:21 No provider procedures requiring assistance completed. Patient did not have IV access during this emergency room visit. Administered Medications: No medications were administered Outcome: 00:00 Discharge ordered by . marie 00:18 Discharged to home ambulatory, with family. anastacio 00:18 Condition: stable 00:18 Discharge instructions given to patient, family, Instructed on discharge instructions, follow up and referral plans. medication usage, POC Demonstrated understanding of instructions, follow-up care, medications, POC Prescriptions given X 2. 00:22 Patient left the ED. Signatures: Whitney Vasquez, RN RN aa1 Piero Marie PA PA cp Habalo, Winsy Thais Farfan ag3 Mary Ramirez, RN RN ls4
--- NOTE | 2019-10-17 00:05 | EDPHYS ---
Physician Documentation [facility] Name: Susana Tamayo Age: 39 yrs Sex: Female : 1980 Arrival Date: 10/16/2019 Time: 22:45 Bed 15 Private MD: ED Physician Kyle Bae HPI: 10/16 23:00 This 39 yrs old Female presents to ER via Ambulatory with complaints of Eye cp Problem. 23:00 The patient is experiencing matting or discharge, redness, to the left eye. Onset: The cp symptoms/episode began/occurred today. Associated signs and symptoms: Pertinent positives: cough, sore throat, Pertinent negatives: fever, headache. Patient wears glasses. Severity of symptoms: in the emergency department the symptoms are unchanged despite home interventions. Historical: - Allergies: 22:56 Darvocet-N 100; aa1 - Home Meds: 22:56 None [Active]; aa1 - PMHx: 22:56 Anxiety; Asthma; Depression; GERD; Migraines; aa1 - PSHx: 22:56 shoulder surgery; Tubal ligation; aa1 - Immunization history:: Flu vaccine is not up to date. - Coronavirus screen:: The patient has NOT traveled to [place] in the past 14 days. Proceed with normal triage process as indicated. - Social history:: Smoking status: Patient reports the use of cigarette tobacco products, smokes one-half pack cigarettes per day. - Ebola Screening: : Patient denies exposure to infectious person Patient denies travel to an Ebola-affected area in the 21 days before illness onset. ROS: 23:05 Constitutional: Negative for body aches, chills, fever, poor PO intake. cp 23:05 Eyes: Positive for redness, of the left eye. cp 23:05 ENT: Positive for sore throat, Negative for drainage from ear(s), ear pain, difficulty swallowing, difficulty handling secretions. 23:05 Respiratory: Positive for cough, Negative for shortness of breath, wheezing. 23:05 Abdomen/GI: Negative for abdominal pain, vomiting, diarrhea, constipation. 23:05 Skin: Negative for rash. 23:05 Neuro: Negative for headache. 23:05 All other systems are negative. Exam: 23:20 Head/Face: Normocephalic, atraumatic. cp 23:20 Constitutional: The patient appears in no acute distress, alert, awake, non-toxic, well developed, well nourished. 23:20 Eyes: Periorbital structures: appear normal, Pupils: equal, round, and reactive to light and accomodation, Extraocular movements: intact throughout, Conjunctiva: injected, in the left eye, Lids and lashes: appear normal, bilaterally, Examination of the other eye reveals no obvious gross abnormality. 23:20 ENT: External ear(s): are unremarkable, Ear canal(s): are normal, clear, TM's: bulging, is not appreciated, bilaterally, dullness, bilaterally, erythema, is not appreciated, bilaterally, Nose: is normal, Mouth: Lips: moist, Oral mucosa: moist, Posterior pharynx: Airway: no evidence of obstruction, patent, Tonsils: no enlargement, no exudate, erythema, that is mild, exudate, is not appreciated, Voice: is normal. 23:20 Neck: ROM/movement: Meningeal signs: are not present, nuchal rigidity, is not appreciated, Lymph nodes: no appreciated lymphadenopathy. 23:20 Chest/axilla: Inspection: normal. 23:20 Cardiovascular: Rate: normal. 23:20 Respiratory: the patient does not display signs of respiratory distress, Respirations: normal, no use of accessory muscles, labored breathing, is not present, Breath sounds: decreased breath sounds, are not appreciated, stridor, is not appreciated, + upper airway congestion. wheezing: is not appreciated. 23:20 Skin: no rash present. Vital Signs: 22:56 BP 147 / 88; Pulse 91; Resp 18; Temp 97.5; Pulse Ox 99% on R/A; Weight 81.65 kg; Height aa1 5 ft. 8 in. (172.72 cm); Pain 0/10; 10/17 00:21 BP 123 / 88; Pulse 88; Resp 18; Pulse Ox 99% on R/A; wh 02 22:56 Body Mass Index 27.37 (81.65 kg, 172.72 cm) aa1 MDM: 02 22:56 Patient medically screened. cp 23:00 Differential diagnosis: Foreign body in left eye. Infectious conjunctivitis in left cp eye. influenza, strep. 10/17 00:00 Data reviewed: vital signs, nurses notes, lab test result(s), and as a result, I will cp discharge patient. 00:00 Counseling: I had a detailed discussion with the patient and/or guardian regarding: the cp historical points, exam findings, and any diagnostic results supporting the discharge/admit diagnosis, lab results, to return to the emergency department if symptoms worsen or persist or if there are any questions or concerns that arise at home. 02 22:55 Order name: Influenza Screen (a \T\ B) 10/16 22:55 Order name: Strep cp 10/16 22:55 Order name: Visual Acuity; Complete Time: 23:40 cp 10/16 23:42 Order name: Influenza Screen (A EDSC 10/16 23:42 Order name: Group A Streptococcus Rapid Sc EDMS Administered Medications: No medications were administered Disposition: 00:24 Chart complete. cp 00:25 Co-signature as Attending Physician, Kyle Bae MD. rn Disposition: 10/17/19 00:00 Discharged to Home. Impression: Conjunctivitis - left eye, Acute upper respiratory infection, unspecified. - Condition is Stable. - Discharge Instructions: Bacterial Conjunctivitis, Upper Respiratory Infection, Adult. - Prescriptions for Tessalon Perles 100 mg Oral Capsule - take 2 capsule by ORAL route every 8 hours As needed; 20 capsule. Polytrim 10,000 unit- 1 mg/mL Ophthalmic drops - instill 1 drop by OPHTHALMIC route every 4-6 hours for 7 days; 1 bottle. - Medication Reconciliation Form, Thank You Letter, Antibiotic Education, Prescription Opioid Use, Work release form form. - Follow up: Private Physician; When: 2 - 3 days; Reason: Worsening of condition. - Problem is new. - Symptoms are unchanged. Signatures: Dis[facility] Whitney Vasquez RN RN aa1 Kyle Bae MD MD rn Page, Corey, PA PA cp Pebbles Kamara Corrections: (The following items were deleted from the chart) 00:22 00:00 10/17/2019 00:00 Discharged to Home. Impression: Conjunctivitis - left eye; Acute wh upper respiratory infection, unspecified. Condition is Stable. Forms are Medication Reconciliation Form, Thank You Letter, Antibiotic Education, Prescription Opioid Use. Follow up: Private Physician; When: 2 - 3 days; Reason: Worsening of condition. Problem is new. Symptoms are unchanged. cp
[2019-10-18 04:26] VITALS: TEMP 97.5; O2SAT 99
[2019-10-18 04:27] VITALS: BP 123/88
== END 2019-10-17 00:22 | disposition home or self-care (01) ==
LOC: ER 22:40
DX: H10.9 Unspecified conjunctivitis (principal); J06.9 Acute upper respiratory infection, unspecified; F17.210 Nicotine dependence, cigarettes, uncomplicated; Z88.5 Allergy status to narcotic agent
CPT/HCPCS: 87070; 87081; 87804; 99283

== ENCOUNTER 2019-11-11 13:51 | Emergency (ER) | payer SELFPAY ==
[2012-03-13 01:36] VITALS: BP 105/67
--- NOTE | 2019-11-11 16:07 | ER ---
Nurse's Notes [facility] Name: Susana Tamayo Age: 39 yrs Sex: Female : 1980 Arrival Date: 11/11/2019 Time: 13:54 Bed 5 Private MD: Diagnosis: Low back pain;Sciatica, right side Presentation: 11/10 14:30 Chief complaint: Patient states: R low back pain that radiates towards R hip area as ss well as R knee pain that began yesterday. No known injury. Coronavirus screen: The patient has NOT traveled to a country currently being monitored by the [facility] within the last 14 days. Proceed with normal triage procedures. Ebola Screen: Patient denies exposure to infectious person. Patient denies travel to an Ebola-affected area in the 21 days before illness onset. Initial Sepsis Screen: Does the patient meet any 2 criteria? No. Patient's initial sepsis screen is negative. Does the patient have a suspected source of infection? No. Patient's initial sepsis screen is negative. Risk Assessment: Do you want to hurt yourself or someone else? Patient reports no desire to harm self or others. 14:30 Method Of Arrival: Ambulatory ss 14:30 Acuity: DIMPLE 4 ss Historical: - Allergies: 14:32 Darvocet-N 100; ss - PMHx: 14:32 Anxiety; Asthma; Depression; GERD; Migraines; ss - PSHx: 14:32 shoulder surgery; Tubal ligation; ss - Immunization history:: Adult Immunizations up to date. - Social history:: Smoking status: Patient denies any tobacco usage or history of. - Family history:: not pertinent. Screenin:30 Abuse screen: Denies threats or abuse. Nutritional screening: No deficits noted. em Tuberculosis screening: No symptoms or risk factors identified. Fall Risk None identified. Assessment: 16:30 General: Appears in no apparent distress. uncomfortable, Behavior is cooperative, em crying. Pain: Complains of pain in right knee and right low back Pain currently is 10 out of 10 on a pain scale. Pain began 1 day ago. Neuro: Level of Consciousness is awake, alert, obeys commands, Oriented to person, place, time, situation, Appropriate for age. Cardiovascular: Capillary refill < 3 seconds Patient's skin is warm and dry. Respiratory: Airway is patent Respiratory effort is even, unlabored, Respiratory pattern is regular, symmetrical. GI: Abdomen is round non-distended. : Denies burning with urination. Derm: Skin is intact, is healthy with good turgor, Skin is pink, warm \T\ dry. Musculoskeletal: Capillary refill < 3 seconds, Range of motion: intact in all extremities. 16:33 General: pending results, not ready for discharge . em 17:49 Reassessment: Patient appears in no apparent distress at this time. Patient and/or em family updated on plan of care and expected duration. Pain level reassessed. Patient is alert, oriented x 3, equal unlabored respirations, skin warm/dry/pink. rates pain 6/10 Patient states feeling better. Patient states symptoms have improved. Vital Signs: 14:30 BP 131 / 91; Pulse 92; Resp 15; Temp 98.3(TE); Pulse Ox 98% on R/A; Height 5 ft. 8 in. ss (172.72 cm); Pain 10/10; ED Course: 13:54 Patient arrived in ED. rg4 14:31 Triage completed. ss 14:32 Arm band placed on right wrist. ss 15:44 Piero Velasquez MD is Attending Physician. ryann 15:45 Teo Perez, RN is Primary Nurse. em 16:30 Patient has correct armband on for positive identification. Bed in low position. Call em light in reach. 17:37 Lumbar Spine (3 Views) XRAY In Process Unspecified. EDMS 17:37 Hip Right 2 View XRAY In Process Unspecified. EDMS 18:15 No provider procedures requiring assistance completed. Patient did not have IV access em during this emergency room visit. Administered Medications: 16:42 Drug: TORadol 60 mg Route: IM; Site: right gluteus; em 18:17 Follow up: Response: No adverse reaction; Marked relief of symptoms; Pain is decreased em 16:42 Drug: [place] (7.5 mg-325 mg) 1 tabs Route: PO; em 18:18 Follow up: Response: No adverse reaction; Marked relief of symptoms; Pain is decreased em Outcome: 16:07 Discharge ordered by . ryann 18:15 Discharged to home ambulatory, with family. em 18:15 Condition: good 18:15 Discharge instructions given to patient, family, Instructed on discharge instructions, follow up and referral plans. medication usage, Demonstrated understanding of instructions, follow-up care, medications, Prescriptions given X 3. 18:23 Patient left the ED. em Signatures: Dispatcher [employer] Piero Gusman MD MD cha Munoz, Edgar, RN RN Lennie Fernando RN RN Mary Noel rg4
--- NOTE | 2019-11-11 16:07 | EDPHYS ---
Physician Documentation [facility] Name: Susana Tamayo Age: 39 yrs Sex: Female : 1980 Arrival Date: 11/11/2019 Time: 13:54 Bed 5 Private MD: CALVIN Physician Piero Velasquez HPI: 11/10 16:01 This 39 yrs old Female presents to ER via Ambulatory with complaints of Back ryann Pain, Knee Pain. 16:01 The patient presents with pain that is acute, with no known mechanism of injury, and ryann decreased range of motion. The symptoms are located in the low back. Onset: The symptoms/episode began/occurred 5 day(s) ago. The pain radiates to the right low back. Associated signs and symptoms: The patient has no apparent associated signs or symptoms. Modifying factors: The patient symptoms are alleviated by remaining still, the patient symptoms are aggravated by movement. Severity of symptoms: At their worst the symptoms were mild, moderate, in the emergency department the symptoms are unchanged. The patient has experienced similar episodes in the past, a few times. Historical: - Allergies: 14:32 Darvocet-N 100; ss - PMHx: 14:32 Anxiety; Asthma; Depression; GERD; Migraines; ss - PSHx: 14:32 shoulder surgery; Tubal ligation; ss - Immunization history:: Adult Immunizations up to date. - Social history:: Smoking status: Patient denies any tobacco usage or history of. - Family history:: not pertinent. ROS: 16:01 Constitutional: Negative for fever, chills, and weight loss, Eyes: Negative for injury, ryann pain, redness, and discharge, ENT: Negative for injury, pain, and discharge, Neck: Negative for injury, pain, and swelling, Cardiovascular: Negative for chest pain, palpitations, and edema, Respiratory: Negative for shortness of breath, cough, wheezing, and pleuritic chest pain, Abdomen/GI: Negative for abdominal pain, nausea, vomiting, diarrhea, and constipation, : Negative for injury, bleeding, discharge, and swelling, MS/Extremity: Negative for injury and deformity, Skin: Negative for injury, rash, and discoloration, Neuro: Negative for headache, weakness, numbness, tingling, and seizure, Psych: Negative for depression, anxiety, suicide ideation, homicidal ideation, and hallucinations, Allergy/Immunology: Negative for hives, rash, and allergies, Endocrine: Negative for neck swelling, polydipsia, polyuria, polyphagia, and marked weight changes, Hematologic/Lymphatic: Negative for swollen nodes, abnormal bleeding, and unusual bruising. 16:01 Back: Positive for pain with movement, of the right low back. Exam: 16:01 Constitutional: This is a well developed, well nourished patient who is awake, alert, ryann and in no acute distress. Head/Face: Normocephalic, atraumatic. Eyes: Pupils equal round and reactive to light, extra-ocular motions intact. Lids and lashes normal. Conjunctiva and sclera are non-icteric and not injected. Cornea within normal limits. Periorbital areas with no swelling, redness, or edema. ENT: Nares patent. No nasal discharge, no septal abnormalities noted. Tympanic membranes are normal and external auditory canals are clear. Oropharynx with no redness, swelling, or masses, exudates, or evidence of obstruction, uvula midline. Mucous membranes moist. Neck: Trachea midline, no thyromegaly or masses palpated, and no cervical lymphadenopathy. Supple, full range of motion without nuchal rigidity, or vertebral point tenderness. No Meningismus. Chest/axilla: Normal chest wall appearance and motion. Nontender with no deformity. No lesions are appreciated. Cardiovascular: Regular rate and rhythm with a normal S1 and S2. No gallops, murmurs, or rubs. Normal PMI, no JVD. No pulse deficits. Respiratory: Lungs have equal breath sounds bilaterally, clear to auscultation and percussion. No rales, rhonchi or wheezes noted. No increased work of breathing, no retractions or nasal flaring. Abdomen/GI: Soft, non-tender, with normal bowel sounds. No distension or tympany. No guarding or rebound. No evidence of tenderness throughout. Skin: Warm, dry with normal turgor. Normal color with no rashes, no lesions, and no evidence of cellulitis. MS/ Extremity: Pulses equal, no cyanosis. Neurovascular intact. Full, normal range of motion. Neuro: Awake and alert, GCS 15, oriented to person, place, time, and situation. Cranial nerves II-XII grossly intact. Motor strength 5/5 in all extremities. Sensory grossly intact. Cerebellar exam normal. Normal gait. Psych: Awake, alert, with orientation to person, place and time. Behavior, mood, and affect are within normal limits. 16:01 Back: pain, that is mild, that is moderate, ROM is painful, normal spinal alignment noted, CVA tenderness, is absent, muscle spasm, is appreciated in the right low back. 16:25 Musculoskeletal/extremity: DVT Exam: No signs of deep vein thrombosis. no pain, no ryann swelling, no tenderness, negative Homans' sign noted on exam, no appreciated bluish discoloration, no erythema, no increased warmth. Vital Signs: 14:30 BP 131 / 91; Pulse 92; Resp 15; Temp 98.3(TE); Pulse Ox 98% on R/A; Height 5 ft. 8 in. ss (172.72 cm); Pain 10/10; MDM: 15:44 Patient medically screened. [facility] 16:06 Data reviewed: vital signs, nurses notes, radiologic studies, ultrasound. [facility] 11/10 16:01 Order name: Lumbar Spine (3 Views) XRAY [facility] 11/10 16:01 Order name: Hip Right 2 View XRAY [facility] Administered Medications: 16:42 Drug: TORadol 60 mg Route: IM; Site: right gluteus; em 18:17 Follow up: Response: No adverse reaction; Marked relief of symptoms; Pain is decreased em 16:42 Drug: [place] (7.5 mg-325 mg) 1 tabs Route: PO; em 18:18 Follow up: Response: No adverse reaction; Marked relief of symptoms; Pain is decreased em Disposition: 11/11/19 16:07 Discharged to Home. Impression: Low back pain, Sciatica, right side. - Condition is Stable. - Discharge Instructions: Back Pain, Adult, Chronic Back Pain, Musculoskeletal Pain, Sciatica, Back Pain, Adult, [id number], Sciatica, [id number]. - Prescriptions for Ibuprofen 600 mg Oral Tablet - take 1 tablet by ORAL route every 8 hours As needed take with food; 21 tablet. Medrol ([place]) 4 mg Oral Tablets, Dose Pack - take 1 tablet by ORAL route as directed - follow package instructions; 1 packet. Cyclobenzaprine 5 mg Oral Tablet - take 1 tablet by ORAL route 3 times per day As needed; 15 tablet. - Medication Reconciliation Form, Thank You Letter, Antibiotic Education, Prescription Opioid Use, Work release form form. - Follow up: Private Physician; When: 2 - 3 days; Reason: Recheck today's complaints, Continuance of care, Re-evaluation by your physician. - Problem is new. - Symptoms have improved. Signatures: Dispatcher [employer] Piero Gusman MD MD cha Munoz, Edgar, RN RN Lennie Coronel RN RN ss Corrections: (The following items were deleted from the chart) 18:23 16:07 11/11/2019 16:07 Discharged to Home. Impression: Low back pain; Sciatica, right em side. Condition is Stable. Forms are Medication Reconciliation Form, Thank You Letter, Antibiotic Education, Prescription Opioid Use. Follow up: Private Physician; When: 2 - 3 days; Reason: Recheck today's complaints, Continuance of care, Re-evaluation by your physician. Problem is new. Symptoms have improved. ryann
[2019-11-11] MEDS ORDERED: HYDROCODONE/APAP 7.5/325 MG TAB ONE (16:41)
[2019-11-11] MEDS ORDERED: KETOROLAC 30 MG/ML INJ ONE (16:42)
--- NOTE | 2019-11-11 17:48 | RAD REPORT ---
EXAM DESCRIPTION: RAD - Lumbar Spine 3 Views - 11/11/2019 5:37 pm CLINICAL HISTORY: Back pain FINDINGS: The alignment of the lumbar spine is satisfactory. No fracture or dislocation is seen. Minimal spondylosis
--- NOTE | 2019-11-11 17:49 | RAD REPORT ---
EXAM DESCRIPTION: RAD - Hip Right 2 View - 11/11/2019 5:37 pm CLINICAL HISTORY: Right hip pain FINDINGS: No fracture or dislocation is seen. Minimal right hip joint space narrowing
== END 2019-11-11 18:23 | disposition home or self-care (01) ==
LOC: ER 13:51
DX: M54.41 Lumbago with sciatica, right side (principal); Z88.6 Allergy status to analgesic agent
CPT/HCPCS: 72100; 96372; 99283

== ENCOUNTER 2019-12-01 18:57 | Emergency (ER) | payer SELFPAY ==
[2019-12-01 19:50] LABS: Urine Blood NEGATIVE (NEG); Urine Glucose NEGATIVE (NEG); Urine Protein 1+ (NEG); Urine pH 6.5 (5.0-7.0)
[2019-12-01 19:57] LABS: Urine Bacteria 20-50 /HPF (<20); Urine Culture Reflex Order REFLEXED; Urine RBC NONE SEEN /HPF (NONE SEEN)
[2019-12-01] MEDS ORDERED: NA CHLORIDE 0.9% 1,000 ML ONE (20:14)
--- NOTE | 2019-12-01 20:34 | RAD REPORT ---
EXAM DESCRIPTION: Haris Whitmore (2 Views)12/01/2019 8:25 pm CLINICAL HISTORY: Cough COMPARISON: 2018 FINDINGS: The lungs appear clear of acute infiltrate. The heart is normal size IMPRESSION: No acute abnormalities displayed
[2019-12-01 21:52] LABS: Absolute Lymphocytes (CBC) 4.6 K/uL (0.7-4.9); Hematocrit 31.2 % (36.0-45.0); Lymphocytes % 60.2 % (15.3-44.8); MPV 7.6 fL (7.6-11.3); RBC Red Blood Cell Count 3.29 M/uL (3.86-4.86)
[2019-12-01 22:00] LABS: Potassium 3.2 mmol/L (3.5-5.1)
[2019-12-01] MEDS ORDERED: POTASSIUM 25 MEQ EFFERV TAB ONE (22:23)
--- NOTE | 2019-12-01 22:23 | ER ---
Nurse's Notes [facility] Name: Susana Tamayo Age: 39 yrs Sex: Female : 1980 Arrival Date: 12/01/2019 Time: 19:00 Bed 14 Private MD: Diagnosis: Acute upper respiratory infection, unspecified Presentation: 11/30 19:00 Chief complaint: Patient states: Fever, weak, feels like passing out for 5 days. ll1 Ibuprofen at 0800 today. Slight cough. Coronavirus screen: Patient denies fever greater than 100.4F, cough, shortness of breath, or difficulty breathing. Proceed with normal triage process. Patient reports a cough. Patient denies shortness of breath or difficulty breathing. Patient reports a measured and/or subjective temperature greater than 100.4F. Patient denies travel on a cruise ship or to a country the [facility] currently lists as an affected area. Patient denies contact with known and/or suspected case of COVID-19. Ebola Screen: Patient denies travel to an Ebola-affected area in the 21 days before illness onset. Initial Sepsis Screen: Does the patient meet any 2 criteria? No. Patient's initial sepsis screen is negative. Does the patient have a suspected source of infection? No. Patient's initial sepsis screen is negative. Risk Assessment: Do you want to hurt yourself or someone else? Patient reports no desire to harm self or others. 19:00 Method Of Arrival: EMS: [facility] ll1 19:00 Acuity: DIMPLE 3 ll1 19:00 Onset of symptoms was November 26, 2019. 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 - Social history:: Smoking status: Patient reports the use of cigarette tobacco products, smokes one-half pack cigarettes per day, Patient/guardian denies using alcohol, street drugs. Screenin:26 Abuse screen: Denies threats or abuse. Denies injuries from another. Nutritional rr5 screening: No deficits noted. Tuberculosis screening: No symptoms or risk factors identified. Fall Risk None identified. Total Kapoor Fall Scale indicates No Risk (0-24 pts). Assessment: 19:10 General: Appears in no apparent distress. uncomfortable, Behavior is calm, cooperative, rr5 appropriate for age, Reports fever for. 19:10 Pain: Complains of pain in left low back and right low back Pain does not radiate. Pain rr5 currently is 10 out of 10 on a pain scale. Quality of pain is described as aching, Pain began gradually, Is intermittent. Neuro: Level of Consciousness is awake, alert, obeys commands, Oriented to person, place, time, situation. Cardiovascular: Capillary refill < 3 seconds Patient's skin is warm and dry. Respiratory: Reports cough that is Airway is patent Respiratory effort is even, unlabored, Respiratory pattern is regular, symmetrical. GI: No signs and/or symptoms were reported involving the gastrointestinal system. : Denies pain. EENT: No signs and/or symptoms were reported regarding the EENT system. Derm: Skin is intact, is healthy with good turgor, Skin temperature is warm. Musculoskeletal: Circulation, motion, and sensation intact. Capillary refill < 3 seconds. 20:20 Reassessment: Patient appears in no apparent distress at this time. No changes from rr5 previously documented assessment. Patient is alert, oriented x 3, equal unlabored respirations, skin warm/dry/pink. awaiting for results. 21:30 Reassessment: Patient appears in no apparent distress at this time. Patient and/or rr5 family updated on plan of care and expected duration. Pain level reassessed. Patient is alert, oriented x 3, equal unlabored respirations, skin warm/dry/pink. 22:40 Reassessment: Patient appears in no apparent distress at this time. Patient is alert, rr5 oriented x 3, equal unlabored respirations, skin warm/dry/pink. discharge instruction given and explained without complaints made. Vital Signs: 19:00 BP 117 / 73; Pulse 115; Resp 18; Temp 100.0; Pulse Ox 97% ; Weight 68.04 kg; Height 5 ll1 ft. 8 in. (172.72 cm); Pain 10/10; 19:33 BP 102 / 66; Pulse 105; Resp 17; Pulse Ox 99% on R/A; rr5 19:50 BP 106 / 59 Supine; Pulse 112; Pulse Ox 98% on R/A; rr5 19:51 BP 104 / 63 Sitting; Pulse 120; Pulse Ox 98% ; rr5 19:52 BP 106 / 54 Standing; Pulse 122; Pulse Ox 100% ; rr5 21:13 BP 99 / 64; Pulse 100; Resp 16; Pulse Ox 99% ; rr5 19:00 Body Mass Index 22.81 (68.04 kg, 172.72 cm) ll1 ED Course: 19:00 Patient arrived in ED. mr 19:04 Triage completed. ll1 19:05 Arm band placed on Patient placed in an exam room. ll1 19:06 Kyle Bae MD is Attending Physician. rn 19:06 Piero Marie PA is PHCP. cp 19:22 Brando Sheikh, IBETH is Primary Nurse. rr5 19:32 Patient has correct armband on for positive identification. Bed in low position. Call rr5 light in reach. Pulse ox on. NIBP on. 19:32 Flu and/or RSV swab sent to lab. Strep swab sent to lab. rr5 20:26 XRAY Chest Pa And Lat (2 Views) In Process Unspecified. EDMS 20:30 Inserted saline lock: 22 gauge in right forearm, using aseptic technique. Blood mg2 collected. 21:40 No provider procedures requiring assistance completed. 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 rr5 22:40 IV discontinued, intact, bleeding controlled, No redness/swelling at site. Pressure rr5 dressing applied. Administered Medications: 20:49 Drug: NS 0.9% 1000 ml Route: IV; Rate: 1 bolus; Site: right forearm; mg2 22:00 Follow up: Response: No adverse reaction; IV Status: Completed infusion; IV Intake: rr5 1000ml 22:21 Drug: Potassium Effervescent Tablet 50 mEq Route: PO; mg2 22:29 Follow up: Response: No adverse reaction; Medication administered at discharge. rr5 Intake: 22:00 IV: 1000ml; Total: 1000ml. rr5 Outcome: 22:21 Discharge ordered by . cp 22:40 Discharged to home ambulatory. rr5 22:40 Condition: stable 22:40 Discharge instructions given to patient, Instructed on discharge instructions, follow up and referral plans. medication usage, Demonstrated understanding of instructions, follow-up care, medications, Prescriptions given X 2. 22:41 Patient left the ED. mg2 Signatures: Dispatcher [employer] EDMS Sosa Toro mr Kathia, MD BRIAN Wright rn Piero Marie PA PA cp [place]ose, Michele RN RN mg2 Brando Sheikh RN RN rr5 Mitzy Conde RN RN ll1
--- NOTE | 2019-12-01 22:23 | EDPHYS ---
Physician Documentation [facility] Name: Susana Tamayo Age: 39 yrs Sex: Female : 1980 Arrival Date: 12/01/2019 Time: 19:00 Bed 14 Private MD: ED Physician Kyle Bae HPI: 11/30 19:30 This 39 yrs old Female presents to ER via EMS with complaints of Fever. cp 19:30 The patient reports fever, that was measured at 101 degrees Fahrenheit. cp 19:30 Associated signs and symptoms: Pertinent positives: cough, fever, general weakness. cp 19:30 Severity of symptoms: in the emergency department the symptoms are unchanged despite cp home interventions. 19:45 Onset: The symptoms/episode began/occurred 5 day(s) ago. 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 - Social history:: Smoking status: Patient reports the use of cigarette tobacco products, smokes one-half pack cigarettes per day, Patient/guardian denies using alcohol, street drugs. ROS: 19:35 Constitutional: Positive for fatigue, Negative for body aches, chills, fever, poor PO cp intake. 19:35 Eyes: Negative for injury, pain, redness, and discharge. cp 19:35 ENT: Negative for drainage from ear(s), ear pain, sinus pain, difficulty swallowing, difficulty handling secretions. 19:35 Cardiovascular: Negative for chest pain, edema, palpitations. 19:35 Respiratory: Positive for cough, Negative for shortness of breath, wheezing. 19:35 Abdomen/GI: Negative for abdominal pain, vomiting, diarrhea, constipation, black/tarry stool, rectal bleeding. 19:35 : Negative for urinary symptoms. 19:35 Skin: Negative for cellulitis, rash. 19:35 Neuro: Positive for weakness, Negative for altered mental status, headache, numbness, syncope. 19:35 All other systems are negative. Exam: 19:45 Constitutional: The patient appears in no acute distress, alert, awake, cp non-diaphoretic, non-toxic, well developed, well nourished. 19:45 Head/Face: Normocephalic, atraumatic. cp 19:45 Eyes: Periorbital structures: appear normal, Pupils: equal, round, and reactive to light and accomodation, Extraocular movements: intact throughout, Conjunctiva: normal, no exudate, no injection, Sclera: no appreciated abnormality, Lids and lashes: appear normal, bilaterally. 19:45 ENT: External ear(s): are unremarkable, Ear canal(s): are normal, clear, TM's: dullness, bilaterally, Nose: is normal, Mouth: Lips: moist, Oral mucosa: pink and intact, moist, Posterior pharynx: is normal, airway is patent, no erythema, no exudate, Tonsils: are normal in appearance, swelling, is not appreciated, erythema, is not appreciated, exudate, is not appreciated. 19:45 Neck: ROM/movement: is normal, is supple, without pain, no range of motions limitations, no meningismus, Lymph nodes: no appreciated lymphadenopathy. 19:45 Chest/axilla: Inspection: normal, Palpation: is normal, no crepitus, no tenderness. 19:45 Cardiovascular: Rate: tachycardic, Rhythm: regular, Edema: is not appreciated, JVD: is not appreciated. 19:45 Respiratory: the patient does not display signs of respiratory distress, Respirations: normal, no use of accessory muscles, no retractions, labored breathing, is not present, Breath sounds: are clear throughout, no decreased breath sounds, no stridor, no wheezing. 19:45 Abdomen/GI: Inspection: abdomen appears normal, Bowel sounds: active, all quadrants, Palpation: abdomen is soft and non-tender, in all quadrants, voluntary guarding, is not appreciated, involuntary guarding, is not appreciated. 19:45 Back: pain, is absent, ROM is normal. 19:45 Skin: cellulitis, is not appreciated, no rash present. 19:45 Neuro: Orientation: to person, place \T\ time. Mentation: is normal, Cerebellar function: is grossly normal, Motor: moves all fours, strength is normal, Sensation: is normal. Vital Signs: 19:00 BP 117 / 73; Pulse 115; Resp 18; Temp 100.0; Pulse Ox 97% ; Weight 68.04 kg; Height 5 ll1 ft. 8 in. (172.72 cm); Pain 10/10; 19:33 BP 102 / 66; Pulse 105; Resp 17; Pulse Ox 99% on R/A; rr5 19:50 BP 106 / 59 Supine; Pulse 112; Pulse Ox 98% on R/A; rr5 19:51 BP 104 / 63 Sitting; Pulse 120; Pulse Ox 98% ; rr5 19:52 BP 106 / 54 Standing; Pulse 122; Pulse Ox 100% ; rr5 21:13 BP 99 / 64; Pulse 100; Resp 16; Pulse Ox 99% ; rr5 19:00 Body Mass Index 22.81 (68.04 kg, 172.72 cm) ll1 MDM: 20:00 Differential diagnosis: viral Infection, bacterial infection, bronchitis, pneumonia cp UTI, gastroenteritis, meningitis. 22:20 Data reviewed: vital signs, nurses notes, lab test result(s), radiologic studies, plain cp films. 22:20 Counseling: I had a detailed discussion with the patient and/or guardian regarding: the cp historical points, exam findings, and any diagnostic results supporting the discharge/admit diagnosis, lab results, radiology results, to return to the emergency department if symptoms worsen or persist or if there are any questions or concerns that arise at home. Response to treatment: the patient's symptoms have mildly improved after treatment, and as a result, I will discharge patient. ED course: VSS. Patient resting comfortably in exam room. Will discharge to home for continued monitoring. 22:21 Patient medically screened. 11/30 19:23 Order name: Influenza Screen (a \T\ B); Complete Time: 20:38 11/30 20:38 Interpretation: Reviewed. 11/30 19:23 Order name: Strep; Complete Time: 20:38 11/30 20:38 Interpretation: Reviewed. 11/30 19:23 Order name: Urine Microscopic Only; Complete Time: 20:38 11/30 20:38 Interpretation: Normal except: UBACT 20-50; SQEPI 10-20. 11/30 19:44 Order name: Urine Dipstick--Ancillary (enter results); Complete Time: 19:57 mw2 11/30 19:57 Interpretation: Normal except: UPROT 1+. 11/30 19:44 Order name: Urine --Ancillary (enter results) 2 11/30 19:57 Order name: CBC with Diff; Complete Time: 20:02 11/30 22:16 Interpretation: Normal except: RBC 3.29; HGB 10.7; HCT 31.2; PLT 146; RDW 15.6; LIZZ% cp 29.6; LYM% 60.2. 11/30 19:23 Order name: XRAY Chest Pa And Lat (2 Views); Complete Time: 20:44 11/30 20:44 Interpretation: Report reviewed. 11/30 19:57 Order name: BMP; Complete Time: 22:15 11/30 22:15 Interpretation: Normal except: K 3.2; BUN 5; GFR 84; CA 7.6. 11/30 19:59 Order name: Urine Culture [facility] 11/30 20:01 Order name: Throat Culture [facility] 11/30 21:56 Order name: Manual Differential; Complete Time: 20:02 [facility] 11/30 22:37 Order name: Slides for Pathologist Review [facility] 11/30 19:23 Order name: Orthostatics; Complete Time: 19:51 11/30 19:23 Order name: Urine Dipstick-Ancillary (obtain specimen); Complete Time: 19:42 11/30 19:23 Order name: Urine Test (obtain specimen); Complete Time: 19:42 11/30 19:57 Order name: IV; Complete Time: 20:50 11/30 21:08 Order name: Labs - recollect needed: Lavender Top- pls label sepcimen; Complete Time: sg 21:16 Administered Medications: 20:49 Drug: NS 0.9% 1000 ml Route: IV; Rate: 1 bolus; Site: right forearm; mg2 22:00 Follow up: Response: No adverse reaction; IV Status: Completed infusion; IV Intake: rr5 1000ml 22:21 Drug: Potassium Effervescent Tablet 50 mEq Route: PO; mg2 22:29 Follow up: Response: No adverse reaction; Medication administered at discharge. rr5 Disposition: 23:05 Co-signature as Attending Physician, Kyle Bae MD. rn Disposition: 12/01/19 22:21 Discharged to Home. Impression: Acute upper respiratory infection, unspecified. - Condition is Stable. - Discharge Instructions: Upper Respiratory Infection, Adult. - Prescriptions for Tessalon Perles 100 mg Oral Capsule - take 2 capsule by ORAL route every 8 hours As needed; 20 capsule. Albuterol Sulfate 90 mcg/actuation - inhale 1-2 puff by INHALATION route every 4-6 hours; 1 Inhaler. - Medication Reconciliation Form, Thank You Letter, Antibiotic Education, Prescription Opioid Use form. - Follow up: Private Physician; When: 2 - 3 days; Reason: Worsening of condition. - Problem is new. - Symptoms have improved. Signatures: Dispatcher [employer] EDBrian Kulkarni, RN RN sg Kyle Bae MD MD rn Piero Marie PA PA cp Tristen Dover RN RN mg2 Mitzy Conde RN RN ll1 Brando Sheikh RN rr5 Corrections: (The following items were deleted from the chart) 22:15 22:15 Normal except: K 3.2; BUN 5; GFR 84. cp cp 22:41 22:21 12/01/2019 22:21 Discharged to Home. Impression: Acute upper respiratory mg2 infection, unspecified. Condition is Stable. Forms are Medication Reconciliation Form, Thank You Letter, Antibiotic Education, Prescription Opioid Use. Follow up: Private Physician; When: 2 - 3 days; Reason: Worsening of condition. Problem is new. Symptoms have improved. cp
[2019-12-01 22:34] LABS: Blood Morphology Comment NOT SEEN (NOT SEEN); Platelet Estimate ADEQ
[2019-12-01 22:57] VITALS: TEMP 100
[2019-12-01 23:04] VITALS: BP 99/64; O2SAT 99
== END 2019-12-01 22:41 | disposition home or self-care (01) ==
LOC: ER 18:57
DX: J06.9 Acute upper respiratory infection, unspecified (principal); F17.210 Nicotine dependence, cigarettes, uncomplicated; Z88.5 Allergy status to narcotic agent
CPT/HCPCS: 36415; 71046; 80048; 81003; 81015; 81025; 85025; 87070; 87081; 87086; 87088; 87804; 96360; 99284; J7030

== ENCOUNTER 2020-02-01 18:25 | Emergency (ER) | payer SELFPAY ==
[2020-02-01 20:07] LABS: Absolute Lymphocytes (CBC) 2.4 K/uL (0.7-4.9); Basophils % 0.6 % (0-1.3); MPV 6.7 fL (7.6-11.3)
[2020-02-01 20:10] LABS: Protime INR 0.96
[2020-02-01 20:33] LABS: ALT/SGPT 27 U/L (12-78); AST/SGOT 17 U/L (15-37); Albumin 3.5 g/dL (3.4-5.0); Alkaline Phosphatase 83 U/L (45-117); BUN Blood Urea Nitrogen 7 mg/dL (7-18); Bicarbonate 26 mmol/L (21-32); Bilirubin Direct < 0.1 mg/dL (0-0.2); Bilirubin Total 0.3 mg/dL (0.2-1.0); Glucose Level 98 mg/dL (74-106); Magnesium 2.1 mg/dL (1.8-2.4); NT PRO-BNP 8 pg/mL (<125); Potassium 3.9 mmol/L (3.5-5.1); Protein, Total 7.4 g/dL (6.4-8.2); Sodium Level 137 mmol/L (136-145); Troponin (Emerg Dept Use Only) < 0.02 ng/mL (0.0-0.045)
--- NOTE | 2020-02-01 20:39 | RAD REPORT ---
EXAM DESCRIPTION: RAD - Chest Single View - 02/01/2020 8:24 pm CLINICAL HISTORY: CHEST PAIN Chest pain. COMPARISON: Chest Pa And Lat (2 Views) dated 12/01/2019; Chest Pa And Lat (2 Views) dated 10/20/2017; Chest Pa And Lat (2 Views) dated 10/16/2017; CHEST PA AND LAT 2 VIEW dated 08/30/2014 FINDINGS: Portable technique limits examination quality. The lungs are grossly clear. The heart is normal in size. Proximal left humerus hardware. IMPRESSION: No acute intrathoracic process suspected.
[2020-02-01] MEDS ORDERED: ASPIRIN 81 MG CHEWABLE TABLET ONE (21:46)
[2020-02-01 21:55] LABS: Urine Blood NEGATIVE (NEG); Urine Glucose NEGATIVE (NEG); Urine Protein NEGATIVE (NEG); Urine pH 6.5 (5.0-7.0)
[2020-02-01 23:59] VITALS: TEMP 97.9
[2020-02-02 00:20] VITALS: BP 112/83; O2SAT 96
--- NOTE | 2020-02-02 14:07 | EKG ---
Test Date: 2020-02-01 Test Time: 18:51:24 Director Export: CHERIE MEASUREMENT RESULTS: Intervals: Rate: 92 IL: 132 QRSD: 76 QT: 360 QTc: 445 Marshall: P: 67 IL: 132 QRS: 68 T: 43 INTERPRETIVE STATEMENTS: Normal sinus rhythm Normal ECG Compared to ECG 08/30/2014 22:30:24 Sinus tachycardia no longer present Electronically Signed On 02-02-20 14:06:00 CDT by Tavo Silverman
--- NOTE | 2020-02-03 18:24 | ER ---
Nurse's Notes [facility] Name: Susana Tamayo Age: 39 yrs Sex: Female : 1980 Arrival Date: 02/01/2020 Time: 18:26 Bed 16 Private MD: Diagnosis: Chest pain, unspecified Presentation: 01/31 18:39 Chief complaint: Patient states: chest pains that started this morning, reports nausea, em sharp/stabbing pain that comes and goes, reports nausea, denies SOB. Coronavirus screen: Proceed with normal triage. Patient denies a cough. Patient denies shortness of breath or difficulty breathing. Patient denies measured and/or subjective temperature greater than 100.4F prior to today's visit. Patient denies travel on a cruise ship or to a country the [facility] currently lists as an affected area. Patient denies contact with known and/or suspected case of COVID-19. Ebola Screen: Patient negative for fever greater than or equal to 101.5 degrees Fahrenheit, and additional compatible Ebola Virus Disease symptoms Patient denies exposure to infectious person. Patient denies travel to an Ebola-affected area in the 21 days before illness onset. No symptoms or risks identified at this time. Initial Sepsis Screen: Does the patient meet any 2 criteria? No. Patient's initial sepsis screen is negative. Does the patient have a suspected source of infection? No. Patient's initial sepsis screen is negative. Risk Assessment: Do you want to hurt yourself or someone else? Patient reports no desire to harm self or others. Onset of symptoms was February 01, 2020. 18:39 Method Of Arrival: Ambulatory em 18:39 Acuity: DIMPLE 3 em OPTOMETRY DOCTOR: 18:43 LMP 01/16/2020 em Historical: - Allergies: 18:43 Darvocet-N 100; em - PMHx: 18:43 Asthma; Depression; Anxiety; GERD; Migraines; em - PSHx: 18:43 shoulder surgery; Tubal ligation; em - Immunization history:: Adult Immunizations up to date. - Social history:: Smoking status: Patient reports the use of cigarette tobacco products, smokes one-half pack cigarettes per day. Screenin:50 Abuse screen: Denies threats or abuse. Nutritional screening: No deficits noted. ea Tuberculosis screening: No symptoms or risk factors identified. Fall Risk None identified. Assessment: 19:20 General: Appears in no apparent distress. Behavior is calm, cooperative, appropriate ea for age. Pain: Complains of pain in chest Pain does not radiate. Pain began 3 hours ago. Neuro: Level of Consciousness is awake, alert, obeys commands, Oriented to person, place, time, situation. Cardiovascular: Patient's skin is warm and dry. Respiratory: Airway is patent Respiratory effort is even, unlabored, Respiratory pattern is regular, symmetrical. 20:00 Reassessment: Patient and/or family updated on plan of care and expected duration. Pain ea level reassessed. Patient is alert, oriented x 3, equal unlabored respirations, skin warm/dry/pink. 21:17 Reassessment: Patient and/or family updated on plan of care and expected duration. Pain ea level reassessed. Patient is alert, oriented x 3, equal unlabored respirations, skin warm/dry/pink. 22:12 Reassessment: Patient and/or family updated on plan of care and expected duration. Pain ea level reassessed. Patient is alert, oriented x 3, equal unlabored respirations, skin warm/dry/pink. 23:14 Reassessment: Patient and/or family updated on plan of care and expected duration. Pain ea level reassessed. Patient is alert, oriented x 3, equal unlabored respirations, skin warm/dry/pink. Vital Signs: 18:39 BP 115 / 78; Pulse 95; Resp 18; Temp 97.9; Pulse Ox 99% on R/A; Weight 68.04 kg; Height em 5 ft. 7 in. (170.18 cm); Pain 8/10; 19:30 BP 111 / 71; Pulse 88; Resp 18; Pulse Ox 98% on R/A; ea 20:36 BP 104 / 67; Pulse 82; Resp 18; Pulse Ox 99% on R/A; ea 21:17 BP 108 / 79; Pulse 87; Resp 18; Pulse Ox 98% ; ea 22:13 BP 101 / 74; Pulse 87; Resp 18; Pulse Ox 98% on R/A; ea 23:15 BP 112 / 83; Pulse 84; Resp 18; Pulse Ox 96% on R/A; ea 18:39 Body Mass Index 23.49 (68.04 kg, 170.18 cm) em ED Course: 18:26 Patient arrived in ED. as 18:42 Triage completed. em 18:43 Arm band placed on. em 18:54 Patient placed in waiting room, Patient notified of wait time. em 18:55 EKG done, by ED staff. Patient maintains SpO2 saturation greater than 95% on room air. em 19:11 Piero Marie PA is PHCP. cp 19:11 Alex Steele MD is Attending Physician. cp 19:15 Suzanna Candelario, RN is Primary Nurse. ea 19:30 Patient has correct armband on for positive identification. Bed in low position. Call ea light in reach. spindle carver on. Pulse ox on. NIBP on. 20:00 Initial lab(s) drawn, by me, sent to lab. Inserted saline lock: 22 gauge in right rv forearm, using aseptic technique. Blood collected. 20:24 XRAY Chest (1 view) In Process Unspecified. EDMS 23:47 No provider procedures requiring assistance completed. IV discontinued, intact, rv bleeding controlled, No redness/swelling at site. Pressure dressing applied. 23:55 Primary Nurse role handed off by Suzanna Candelario, IBETH rv Administered Medications: 21:41 Drug: Aspirin Chewable Tablet 324 mg Route: PO; ea 22:51 Follow up: Response: No adverse reaction ea Outcome: 23:39 Discharge ordered by . cp 23:48 Discharged to home ambulatory. rv 23:48 Condition: good 23:48 Discharge instructions given to patient, Instructed on discharge instructions, follow up and referral plans. medication usage, Demonstrated understanding of instructions, follow-up care, medications, Prescriptions given X 1. 23:48 Patient left the ED. rv 02/01 00:00 Patient left the ED. rv Signatures: Dispatcher [employer] EDMN Teo Perez, RN RN Marlene Hinkle as Piero Marie PA PA cp Antunez, Elena, Herrera Churchill RN, ea, RN RN rv
--- NOTE | 2020-02-03 18:24 | EDPHYS ---
Physician Documentation [facility] Name: Susana Tamayo Age: 39 yrs Sex: Female : 1980 Arrival Date: 02/01/2020 Time: 18:26 Bed 16 Private MD: ED Physician Alex Steele HPI: 01/31 19:55 This 39 yrs old Female presents to ER via Ambulatory with complaints of cp Anxiety, Chest Pain. 19:55 The patient or guardian reports chest pain that is located primarily in the anterior cp chest wall, below left breast. 19:55 The pain does not radiate. Associated signs and symptoms: Pertinent negatives: cp abdominal pain, lower extremity pain, lower extremity swelling, palpitations, recent travel, shortness of breath, vomiting. The chest pain is described as sharp. Duration: The patient or guardian reports a single episode, that is still ongoing, but improving. Modifying factors: the symptoms are aggravated by nothing. TWISTER FRAME TENDER: 18:43 LMP 01/16/2020 em Historical: - Allergies: 18:43 Darvocet-N 100; em - PMHx: 18:43 Asthma; Depression; Anxiety; GERD; Migraines; em - PSHx: 18:43 shoulder surgery; Tubal ligation; em - Immunization history:: Adult Immunizations up to date. - Social history:: Smoking status: Patient reports the use of cigarette tobacco products, smokes one-half pack cigarettes per day. ROS: 20:00 Constitutional: Negative for body aches, chills, fever. cp 20:00 Eyes: Negative for injury, pain, redness, and discharge. cp 20:00 Cardiovascular: Positive for chest pain, Negative for edema, palpitations. 20:00 Respiratory: Negative for cough, shortness of breath, wheezing. 20:00 Abdomen/GI: Negative for abdominal pain, nausea, vomiting, and diarrhea. 20:00 Back: Negative for pain at rest, pain with movement, radiated pain. 20:00 : Negative for urinary symptoms. 20:00 Neuro: Negative for altered mental status, headache, syncope, weakness. cp 20:00 All other systems are negative. cp Exam: 18:55 ECG was reviewed by the Attending Physician. cp 20:05 Constitutional: The patient appears in no acute distress, alert, awake, cp non-diaphoretic, non-toxic, well developed, well nourished. 20:05 Head/Face: Normocephalic, atraumatic. cp 20:05 Eyes: Periorbital structures: appear normal, Conjunctiva: normal, no exudate, no injection, Sclera: no appreciated abnormality, Lids and lashes: appear normal, bilaterally. 20:05 ENT: External ear(s): are unremarkable, Nose: is normal, Mouth: Lips: moist, Oral mucosa: pink and intact, moist, Posterior pharynx: is normal, airway is patent, no erythema, no exudate. 20:05 Neck: ROM/movement: is normal, is supple, without pain, no range of motions limitations, no nuchal rigidity. 20:05 Chest/axilla: Inspection: normal, Palpation: is normal, no crepitus, no tenderness. 20:05 Cardiovascular: Rate: normal, Rhythm: regular, Heart sounds: murmur, not appreciated, Edema: is not appreciated, JVD: is not appreciated. 20:05 Respiratory: the patient does not display signs of respiratory distress, Respirations: normal, no use of accessory muscles, no retractions, labored breathing, is not present, Breath sounds: are clear throughout, no decreased breath sounds, no stridor, no wheezing. 20:05 Abdomen/GI: Inspection: abdomen appears normal, Bowel sounds: active, all quadrants, Palpation: abdomen is soft and non-tender, in all quadrants. 20:05 Back: pain, is absent, ROM is normal. 20:05 Skin: cellulitis, is not appreciated, no rash present. 20:05 Neuro: Orientation: to person, place \T\ time. Mentation: is normal, Cerebellar function: is grossly normal, Motor: moves all fours, strength is normal, Sensation: is normal. 23:08 ECG was reviewed by the Attending Physician. cp Vital Signs: 18:39 BP 115 / 78; Pulse 95; Resp 18; Temp 97.9; Pulse Ox 99% on R/A; Weight 68.04 kg; Height em 5 ft. 7 in. (170.18 cm); Pain 8/10; 19:30 BP 111 / 71; Pulse 88; Resp 18; Pulse Ox 98% on R/A; ea 20:36 BP 104 / 67; Pulse 82; Resp 18; Pulse Ox 99% on R/A; ea 21:17 BP 108 / 79; Pulse 87; Resp 18; Pulse Ox 98% ; ea 22:13 BP 101 / 74; Pulse 87; Resp 18; Pulse Ox 98% on R/A; ea 23:15 BP 112 / 83; Pulse 84; Resp 18; Pulse Ox 96% on R/A; ea 18:39 Body Mass Index 23.49 (68.04 kg, 170.18 cm) em MDM: 19:36 Patient medically screened. cp 20:00 Differential diagnosis: abnormal EKG, acute pericarditis, chest wall pain, cp cholecystitis, Cholelithiasis costochondritis, pleurisy, pneumonia, pneumothorax, pulmonary embolus, stable angina, unstable angina. 23:38 Data reviewed: vital signs, nurses notes, lab test result(s), EKG, radiologic studies, cp plain films, and as a result, I will discharge patient. 23:38 Test interpretation: by ED physician or midlevel provider: ECG, chest xray negative for cp infiltrates and focal pneumonia. Counseling: I had a detailed discussion with the patient and/or guardian regarding: the historical points, exam findings, and any diagnostic results supporting the discharge/admit diagnosis, lab results, radiology results, the need for outpatient follow up, a family practitioner, to return to the emergency department if symptoms worsen or persist or if there are any questions or concerns that arise at home. Special discussion: Based on the patient's history, exam, and Dx evaluation, there is no indication for emergent intervention or inpatient Tx. It is understood by the patient/guardian that if the Sx's persist or worsen they need to return immediately for re-evaluation. 01/31 19:05 Order name: Urine Dipstick--Ancillary (enter results); Complete Time: 22:15 eb 01/31 19:05 Order name: Urine --Ancillary (enter results); Complete Time: 22:15 eb 01/31 19:49 Order name: Basic Metabolic Panel; Complete Time: 21:41 cp 01/31 21:41 Interpretation: Normal except: CL 109; GFR 87. cp 01/31 19:49 Order name: CBC with Diff; Complete Time: 21:41 cp 01/31 21:41 Interpretation: Normal except: MPV 6.7; EOSINOPHIL % 8.1; EOSA 0.6. cp 01/31 19:49 Order name: LFT's; Complete Time: 21:41 cp /30 21:41 Interpretation: Normal except: GLOB 3.9; A/G 0.9. cp /30 19:49 Order name: Magnesium; Complete Time: 21:41 cp /30 19:12 Order name: EKG; Complete Time: 19:12 cp 01/31 19:12 Order name: EKG - Nurse/Tech; Complete Time: 19:15 cp 01/31 19:49 Order name: NT PRO-BNP; Complete Time: 21:41 cp 01/31 19:49 Order name: PT-INR; Complete Time: 21:41 cp 01/31 19:49 Order name: Troponin (emerg Dept Use Only); Complete Time: 21:41 cp 01/31 22:15 Interpretation: Reviewed. cp 01/31 19:50 Order name: XRAY Chest (1 view); Complete Time: 21:41 cp 01/31 21:41 Interpretation: Report review. cp 01/31 22:51 Order name: Troponin (emerg Dept Use Only); Complete Time: 23:37 ea 01/31 23:37 Interpretation: Reviewed. cp 01/31 19:49 Order name: Cardiac monitoring; Complete Time: 20:17 cp 01/31 19:49 Order name: IV Saline Lock; Complete Time: 20:17 cp 01/31 19:49 Order name: Labs collected and sent; Complete Time: 20:17 cp 01/31 19:49 Order name: O2 Per Protocol; Complete Time: 20:17 cp 01/31 19:49 Order name: O2 Sat Monitoring; Complete Time: 20:17 cp 01/31 19:50 Order name: Urine Dipstick-Ancillary (obtain specimen); Complete Time: 20:17 cp 01/31 19:50 Order name: Urine Test (obtain specimen); Complete Time: 20:16 cp 01/31 22:51 Order name: EKG - Nurse/Tech; Complete Time: 23:14 ea EC:55 Rate is 92 beats/min. Rhythm is regular. OK interval is normal. QRS interval is normal. cp QT interval is normal. T waves are Inverted in lead aVR. Interpreted by me. Reviewed by me. 23:08 Rate is 87 beats/min. Rhythm is regular. OK interval is normal. QRS interval is normal. cp QT interval is normal. Interpreted by me. Reviewed by me. Administered Medications: 21:41 Drug: Aspirin Chewable Tablet 324 mg Route: PO; sada 22:51 Follow up: Response: No adverse reaction ea Disposition: 02/01 07:11 Co-signature as Attending Physician, Alex Steele MD. [email or web address] Disposition: 02/01/20 23:39 Discharged to Home. Impression: Chest pain, unspecified. - Condition is Stable. - Discharge Instructions: Nonspecific Chest Pain, Aspirin and Your Heart. - Prescriptions for Pepcid 20 mg Oral Tablet - take 1 tablet by ORAL route every 12 hours for 10 days; 20 tablet. - Medication Reconciliation Form, Thank You Letter, Antibiotic Education, Prescription Opioid Use, Work release form form. - Follow up: Private Physician; When: 2 - 3 days; Reason: Recheck today's complaints. - Problem is new. - Symptoms have improved. Signatures: Dispatcher [employer] Teo Degroot RN RN em Page, Corey, PA PA cp Antunez, Elena RN Herrera Churchill ea, RN RN rv Holmes, Maurice, MD MD [facility] Corrections: (The following items were deleted from the chart) 01/31 21:41 21:41 Normal except: MPV 6.7; EOSINOPHIL % 8.1. cp cp 23:48 23:39 02/01/2020 23:39 Discharged to Home. Impression: Chest pain, unspecified. rv Condition is Stable. Forms are Medication Reconciliation Form, Thank You Letter, Antibiotic Education, Prescription Opioid Use. Follow up: Private Physician; When: 2 - 3 days; Reason: Recheck today's complaints. Problem is new. Symptoms have improved. cp 02/01 00:00 01/31 23:48 02/01/2020 23:39 Discharged to Home. Impression: Chest pain, unspecified. rv Condition is Stable. Discharge Instructions: Nonspecific Chest Pain, Aspirin and Your Heart. Prescriptions for Pepcid 20 mg Oral Tablet - take 1 tablet by ORAL route every 12 hours for 10 days; 20 tablet. and Forms are Medication Reconciliation Form, Thank You Letter, Antibiotic Education, Prescription Opioid Use. Follow up: Private Physician; When: 2 - 3 days; Reason: Recheck today's complaints. Problem is new. Symptoms have improved. rv
--- NOTE | 2020-02-05 16:32 | EKG ---
Test Date: 2020-02-01 Test Time: 23:02:02 Felt Strip Finisher: DEAN MEASUREMENT RESULTS: Intervals: Rate: 87 PA: 136 QRSD: 84 QT: 360 QTc: 433 Derry: P: 63 PA: 136 QRS: 68 T: 54 INTERPRETIVE STATEMENTS: Normal sinus rhythm Normal ECG Compared to ECG 02/01/2020 18:51:24 No significant changes Electronically Signed On 02-05-20 16:27:49 CDT by Tavo Silverman
== END 2020-02-02 | disposition home or self-care (01) ==
LOC: ER 18:25
DX: R07.9 Chest pain, unspecified (principal); F17.210 Nicotine dependence, cigarettes, uncomplicated; Z88.5 Allergy status to narcotic agent
CPT/HCPCS: 36415; 71045; 80048; 80076; 81003; 81025; 83735; 83880; 84484; 85025; 85610; 93005; 99285

== ENCOUNTER 2020-08-03 17:39 | Emergency (ER) | payer SELFPAY ==
--- OUTSIDE RECORDS SUMMARY | 2020-08-03 17:41 | XMS REPORT | Continuity of Care Document ---
:1980 Author Organization [facility] t Address [address] [place] [address] Care Team Providers Name Role Phone Unavailable Unavailable Unavailable Payers Payer Name Policy Type Policy Number Effective Date Expiration Date S ource Problems This patient has no known problems. Allergies, Adverse Reactions, Alerts Allergy Allergy Status Severity Reaction(s) Onset Inactive Treating Comm ents Source Name Type Date Date Clinician No Known DA Active U [facility] Allergie 04-11 [facility] 00:00: d 00 [facility] Medications This patient has no known medications. Procedures This patient has no known procedures. Results Test Description Test Time Test Comments Results Result [facility] e Comments - CT ABD PELVIS 2020-04-11 FAX: N W/CONT 20:28:00 Ebonie Parry MD [place]: St: REG Name: RENEE PARRISH [facility] : 1980 Age/S: 40/F [address] [facility] Unit: [id number] Loc: [address] Phys: [place] [id number] Acct: [id number] Dis Date: Status: REG ER PHONE #: [phone] Exam Date: 04/11/20202012 FAX #: [phone] Reason: PAIN EXAMS: CPT CODE: [id number] CT ABD PELVIS W/CONT 21468 LOCATION: T18 EXAM: CT ABDOMEN AND PELVIS WITH CONTRAST INDICATION: Abdominal pain, lower abdominal pain COMPARISON: None. TECHNIQUE: Multiple CT images of the abdomen and pelvis were obtained with reconstructions in the coronal and sagittal planes. 100 ml of Isovue 300 was given intravenously. Up-to-date CT equipment and radiation dose reduction techniques were utilized. Automatic exposure control was utilized. FINDINGS: Lung bases are clear. Fatty infiltration throughout the liver noted. Spleen, adrenal glands and pancreas normal. Gallbladder is unremarkable. No biliary distention. Portal vasculature is patent. Kidneys enhance symmetrically. No focal abnormality or hydronephrosis is seen. There is no hydroureter. Urinary bladder appearance. Uterus and adnexal structures are age-appropriate in appearance. The appendix is normal. There is no evidence for acute appendicitis. No free air or free fluid is present. No diverticulosis or evidence of colitis is seen. Abdominal aorta is normal in caliber. IVC is normal. Bones peripheral soft tissues are unremarkable. IMPRESSION: Fatty liver. Normal appendix. No bowel obstruction. No diverticulosis or evidence of colitis. at 2027 Reported and signed by: Kip Jeffery M.D. CC: Ebonie Parry MD Technologist: RAH GEE Trnscrd Dt/Tm: 04/11/2020 (2027) [email or web address] Orig Print D/T: S: 04/11/2020 (2031 PAGE 1 Signed Report COMPREHENSIVE METABOLIC PANEL 2020-04-11 18:37:00 Test Item Value Reference Range Interpretation Comme nts SODIUM (test code = NA) 137 mmol/l 134.0-147.0 N POTASSIUM (test code = K) 4.6 mmol/L 3.6-5.2 N CHLORIDE (test code = CL) 101 mmol/l 98.0-107.0 N CARBON DIOXIDE (test code = CO2) 28.3 mmol/l 21.0-33.0 N ANION GAP (test code = GAP) 12.3 0-20 N GLUCOSE (test code = GLU) 91 mg/dl 70.0-110.0 N BLOOD UREA NITROGEN (test code = BUN) 5 mg/dl 7.0-18.0 L CREATININE (test code = CREAT) 0.89 mg/dL 0.60-1.30 N GFR NON BLACK (test code = GFRNONBLACK) 75 mL/min 105-110 L GFR BLACK (test code = GFRBLACK) 91 mL/min 127-133 L TOTAL PROTEIN (test code = PROT) 7.4 gm/dL 6.4-8.2 N ALBUMIN (test code = ALB) 3.6 gm/dl 3.2-4.7 N CALCIUM (test code = CA) 9.3 mg/dl 8.0-10.5 N BILIRUBIN TOTAL (test code = BILT) 0.3 mg/dl 0.0-1.0 N SGOT/AST (test code = AST) 36 Units/L 15.0-37.0 N SGPT/ALT (test code = ALT) 40 Units/L 12.0-78.0 N ALKALINE PHOSPHATASE TOTAL (test code = ALKP) 90 Units/L 50.0-136 .0 N [id number] 18:37:00 Test Item Value Reference Range Interpretation Comments LIPASE (test code = LIP) 140 Units/L 65.0-230.0 N [id number] 18:37:00 Test Item Value Reference Range Interpretation Comments ALCOHOL (test code 0.00 gm/dL 0.00-0.00 N ETHYL ALC OHOL VALUES - = ALC) INTERPRETATION: 0.050 GM/DL - NOT INT OXICATED 0.100 GM/DL - INTOXICATED 0.3 50-0.450 GM/DL - SEVEREL Y INTOXICATED 0.5 50 GM/DL- FATAL INTOXICAT ION DRUGS OF ABUSE SCREEN [id number] 18:33:00 Test Item Value Reference Range Interpretation Comments URN COCAINE (test code NEGATIVE NEGATIVE Cocai ne cut-off = COCAURN) concentration: 300 ng/mL URN CANNABINOIDS (test NEGATIVE NEGATIVE Canna binoids cut-off code = CANNABURN) concentrat ion: 50 ng/mL URN AMPHETAMINE (test NEGATIVE NEGATIVE Amphet amine cut-off code = AMPHETURN) concentrat ion: 1000 ng/mL URN BARBITURATE (test NEGATIVE NEGATIVE Barbit urate cut-off code = BARBITURN) concentrat ion: 200 ng/mL URN BENZODIAZEPINE NEGATIVE NEGATIVE Benzodiaz epine cut-off (test code = BENZOURN) matias ntration: 200 ng/mL URN OPIATES (test code NEGATIVE NEGATIVE Opiat es cut-off = OPIATURN) concentration: 200 ng/mL URN PHENCYCLIDINE (PCP) NEGATIVE NEGATIVE Phen cyclidine(PCP) (test code = PHENCURN) cut-o ff concentration: 25 ng/ml URN METHADONE (test NEGATIVE NEGATIVE code = METHAURN) URINALYSIS [id number] 18:32:00 Test Item Value Reference Range Interpretation Comments UA COLOR (test code = COLU) STRAW UA APPEARANCE (test code = CLEAR APPU) UA GLUCOSE DIPSTICK (test NORMAL mg/dl NORMAL code = DGLUU) UA BILIRUBIN DIPSTICK (test NEGATIVE mg/dL NEGATIVE code = BILU) UA KETONE DIPSTICK (test NEGATIVE mg/dl NEGATIVE code = KETU) UA SPECIFIC GRAVITY (test 1.010 1.000-1.030 code = SGU) UA BLOOD DIPSTICK (test NEGATIVE Selvin/micL NEGATIVE code = CLARIBEL) UA PH DIPSTICK (test code = 6.5 5.0-9.0 VIRI) UA PROTEIN DIPSTICK (test NEGATIVE mg/dl NEGATIVE code = PROU) UA UROBILINIOGEN DIPSTICK NORMAL mg/dl NORMAL (test code = URO) UA NITRITE DIPSTICK (test NEGATIVE NEGATIVE code = MARCK) UA LEUKOCYTE ESTERASE NEGATIVE Victor Manuel/micL NEGATIVE DIPSTICK (test code = LEUU) UA WBC (test code = WBCU) 0-3 WBC/HPF NONE UA RBC (test code = RBCU) 0-2 RBC/HPF 0-3 UA EPITHELIAL CELLS (test 0-3 EPI/HPF 0-3 code = EPIU) UA BACTERIA (test code = TRACE NONE BACU) UR HCG [id number] 18:32:00 Test Item Value Reference Range Interpretation Comments UR HCG QUAL (test code = HCGQLU) NEGATIVE NEGATIVE URINALYSIS [id number] 18:31:00 Test Item Value Reference Range Interpretation Comments UA COLOR (test code = COLU) STRAW UA APPEARANCE (test code = CLEAR APPU) UA GLUCOSE DIPSTICK (test NORMAL mg/dl NORMAL code = DGLUU) UA BILIRUBIN DIPSTICK (test NEGATIVE mg/dL NEGATIVE code = BILU) UA KETONE DIPSTICK (test NEGATIVE mg/dl NEGATIVE code = KETU) UA SPECIFIC GRAVITY (test 1.010 1.000-1.030 code = SGU) UA BLOOD DIPSTICK (test NEGATIVE Selvin/micL NEGATIVE code = CLARIBEL) UA PH DIPSTICK (test code = 6.5 5.0-9.0 VIRI) UA PROTEIN DIPSTICK (test NEGATIVE mg/dl NEGATIVE code = PROU) UA UROBILINIOGEN DIPSTICK NORMAL mg/dl NORMAL (test code = URO) UA NITRITE DIPSTICK (test NEGATIVE NEGATIVE code = MARCK) UA LEUKOCYTE ESTERASE NEGATIVE Victor Manuel/micL NEGATIVE DIPSTICK (test code = LEUU) UA WBC (test code = WBCU) WBC/HPF NONE UA RBC (test code = RBCU) RBC/HPF 0-3 UA EPITHELIAL CELLS (test EPI/HPF 0-3 code = EPIU) UA BACTERIA (test code = NONE BACU) UR HCG [id number] 18:31:00 Test Item Value Reference Range Interpretation Comments UR HCG QUAL (test code = HCGQLU) NEGATIVE COMPREHENSIVE METABOLIC [id number] 18:27:00 Test Item Value Reference Range Interpretation Comments SODIUM (test code = NA) 137 mmol/l 134.0-147.0 N POTASSIUM (test code = K) 4.6 mmol/L 3.6-5.2 N CHLORIDE (test code = CL) 101 mmol/l 98.0-107.0 N CARBON DIOXIDE (test code = CO2) 28.3 mmol/l 21.0-33.0 N ANION GAP (test code = GAP) 12.3 0-20 N GLUCOSE (test code = GLU) mg/dl 70.0-110.0 BLOOD UREA NITROGEN (test code = mg/dl 7.0-18.0 BUN) CREATININE (test code = CREAT) mg/dL 0.60-1.30 GFR NON BLACK (test code = mL/min 105-110 GFRNONBLACK) GFR BLACK (test code = GFRBLACK) mL/min 127-133 TOTAL PROTEIN (test code = PROT) gm/dL 6.4-8.2 ALBUMIN (test code = ALB) gm/dl 3.2-4.7 CALCIUM (test code = CA) mg/dl 8.0-10.5 BILIRUBIN TOTAL (test code = mg/dl 0.0-1.0 BILT) SGOT/AST (test code = AST) Units/L 15.0-37.0 SGPT/ALT (test code = ALT) Units/L 12.0-78.0 ALKALINE PHOSPHATASE TOTAL (test Units/L 50.0-136.0 code = ALKP) [id number] 18:27:00 Test Item Value Reference Range Interpretation Comments LIPASE (test code = LIP) Units/L 65.0-230.0 [id number] 18:27:00 Test Item Value Reference Range Interpretation Comments ALCOHOL (test code = ALC) gm/dL 0.00-0.00 CBC W/AUTO [id number] 18:16:00 Test Item Value Reference Range Interpretation Comments WHITE BLOOD CELL (test code = 8.9 K/mm3 4.5-11.0 N WBC) RED BLOOD CELL (test code = 4.19 M/mm3 3.80-5.20 N RBC) HEMOGLOBIN (test code = HGB) 14.0 gm/dL 12.0-16.0 N HEMATOCRIT (test code = HCT) 40.8 % 36.0-48.0 N MEAN CELL VOLUME (test code = 97.4 UM3 82.0-99.0 N MCV) MEAN CELL HGB (test code = MCH) 33.4 UUG 25.5-32.5 H MEAN CELL HGB CONCETRATION 34.3 gm/dL 29.0-35.5 N (test code = MCHC) RED CELL DISTRIBUTION WIDTH 12.6 % 11.5-15.0 N (test code = RDW) RED CELL DISTRIBUTION WIDTH SD 44.7 fL 34.8-50.2 N (test code = RDW-SD) PLATELET COUNT (test code = 241 K/mm3 150-400 N PLT) MEAN PLATELET VOLUME (test code 9.1 fl 7.4-10.4 N = MPV) NEUTROPHIL % (test code = NT%) 61.9 % 49.0-76.0 N IMMATURE GRANULOCYTE % (test 0.5 % 0.0-0.4 H code = IG%) LYMPHOCYTE % (test code = LY%) 25.9 % 23.0-38.0 N MONOCYTE % (test code = MO%) 6.1 % 1.0-10.0 N EOSINOPHIL % (test code = EO%) 5.0 % 1.0-5.0 N BASOPHIL % (test code = BA%) 0.6 % 0.0-1.0 N NEUTROPHIL # (test code = NT#) 5.5 K/mm3 2.4-6.3 N IMMATURE GRANULOCYTE # (test 0.04 x10 3/uL 0.00-0.07 N code = IG#) LYMPHOCYTE # (test code = LY#) 2.3 K/mm3 1.2-4.0 N MONOCYTE # (test code = MO#) 0.5 K/mm3 0.0-0.6 N EOSINOPHIL # (test code = EO#) 0.4 K/MM3 0.0-0.7 N BASOPHIL # (test code = BA#) 0.1 K/mm3 0.0-0.2 N
--- NOTE | 2020-08-03 18:49 | RAD REPORT ---
EXAM DESCRIPTION: Haris Single View08/03/2020 6:29 pm CLINICAL HISTORY: Chest pain COMPARISON: January 2020 FINDINGS: The lungs appear clear of acute infiltrate. The heart is normal size IMPRESSION: No acute abnormalities displayed
--- NOTE | 2020-08-03 19:37 | ER ---
Nurse's Notes [facility] Name: Susana Tamayo Age: 40 yrs Sex: Female : 1980 Arrival Date: 08/03/2020 Time: 17:43 Bed 20 Private MD: Diagnosis: Diarrhea, unspecified;Chest pain on breathing Presentation: 08/03 17:51 Chief complaint: Patient states: pain to upper back when taking a deep breath and ss diarrhea that began this morning. Coronavirus screen: Client denies travel out of the [place] in the last 14 days. Ebola Screen: Patient denies exposure to infectious person. Patient denies travel to an Ebola-affected area in the 21 days before illness onset. Initial Sepsis Screen: Does the patient meet any 2 criteria? No. Patient's initial sepsis screen is negative. Does the patient have a suspected source of infection? No. Patient's initial sepsis screen is negative. Risk Assessment: Do you want to hurt yourself or someone else? Patient reports no desire to harm self or others. Onset of symptoms was August 03, 2020. 17:51 Method Of Arrival: Ambulatory ss 17:51 Acuity: DIMPLE 3 ss Triage Assessment: 17:50 General: Appears in no apparent distress. comfortable, Behavior is cooperative, bp appropriate for age, anxious. Pain: Complains of pain in chest Aggravated by INSPIRATION. EENT: No deficits noted. Neuro: No deficits noted. Cardiovascular: Rhythm is sinus rhythm. Respiratory: No deficits noted. GI: Reports diarrhea. : No signs and/or symptoms were reported regarding the genitourinary system. Derm: No deficits noted. Musculoskeletal: No deficits noted. Historical: - Allergies: 17:52 Darvocet-N 100; ss - PMHx: 17:52 Anxiety; Asthma; Depression; GERD; Migraines; ss - PSHx: 17:52 shoulder surgery; Tubal ligation; ss - Immunization history:: Adult Immunizations up to date. - Social history:: Smoking status: Patient reports the use of cigarette tobacco products, smokes one-half pack cigarettes per day. Screenin:51 Abuse screen: Denies threats or abuse. Denies injuries from another. Nutritional bp screening: No deficits noted. Tuberculosis screening: No symptoms or risk factors identified. Fall Risk None identified. Assessment: 17:51 General: SEE TRIAGE NOTE. bp 18:30 Reassessment: Patient appears in no apparent distress at this time. No changes from bp previously documented assessment. Patient is alert, oriented x 3, equal unlabored respirations, skin warm/dry/pink. 19:30 Reassessment: Patient and/or family updated on plan of care and expected duration. Pain aj1 level reassessed. General: Appears in no apparent distress. comfortable, Behavior is calm, cooperative, appropriate for age. Pain: Complains of pain in thoracic area and right scapular area and left scapular area Pain does not radiate. Pain currently is 5 out of 10 on a pain scale. Quality of pain is described as aching, Pain began 3 hours ago. Neuro: Level of Consciousness is awake, alert, obeys commands, Oriented to person, place, time, situation. Cardiovascular: Reports chest pain, Denies palpitations, shortness of breath, Heart tones S1 S2 present Patient's skin is warm and dry. Rhythm is regular. Respiratory: Airway is patent Respiratory effort is even, unlabored, Respiratory pattern is regular, symmetrical, Denies cough, shortness of breath. GI: Abdomen is non-distended, Bowel sounds present X 4 quads. Abd is soft and non tender X 4 quads. Reports diarrhea. : No signs and/or symptoms were reported regarding the genitourinary system. EENT: No signs and/or symptoms were reported regarding the EENT system. Derm: No signs and/or symptoms reported regarding the dermatologic system. Skin is pink, warm \T\ dry. normal. Musculoskeletal: No signs and/or symptoms reported regarding the musculoskeletal system. Circulation, motion, and sensation intact. 20:30 Reassessment: Patient appears in no apparent distress at this time. No changes from aj1 previously documented assessment. Patient and/or family updated on plan of care and expected duration. Pain level reassessed. Patient is alert, oriented x 3, equal unlabored respirations, skin warm/dry/pink. Vital Signs: 17:51 BP 122 / 80; Pulse 86; Resp 17; Temp 98.1(TE); Pulse Ox 100% on R/A; Weight 68.04 kg; ss Height 5 ft. 8 in. (172.72 cm); Pain 9/10; 18:30 BP 115 / 83; Pulse 85; Resp 16; Pulse Ox 100% ; bp 19:30 BP 122 / 75; Pulse 88; Resp 18; Pulse Ox 99% on R/A; aj1 17:51 Body Mass Index 22.81 (68.04 kg, 172.72 cm) ED Course: 17:43 Patient arrived in ED. mr 17:48 Sanjay Day, RN is Primary Nurse. bp 17:48 Essence Gagnon, VIOLET-C is PHCP. kb 17:48 Kyle Bae MD is Attending Physician. kb 17:51 Patient has correct armband on for positive identification. Bed in low position. Call bp light in reach. Side rails up X2. Pulse ox on. NIBP on. 17:52 Triage completed. ss 17:52 Arm band placed on right wrist. ss 18:29 Chest Single View XRAY In Process Unspecified. EDMS 19:03 Primary Nurse role handed off by Sanjay Day, IBETH mw2 19:30 No provider procedures requiring assistance completed. Patient did not have IV access aj1 during this emergency room visit. Patient maintains SpO2 saturation greater than 95% on room air. 19:55 COVID swab sent to lab. jp3 20:09 Meron Chowdhury, RN is Primary Nurse. aj1 Administered Medications: 20:09 Drug: TORadol 30 mg Route: IM; Site: right deltoid; aj1 20:45 Follow up: Response: No adverse reaction aj1 Outcome: 19:36 Discharge ordered by . kb 20:48 Discharged to home ambulatory. aj1 20:48 Condition: good 20:48 Discharge instructions given to patient, Instructed on discharge instructions, follow up and referral plans. medication usage, Do not return to work until COVID swab is negative, self isolate until COVID swab is negative Demonstrated understanding of instructions, follow-up care, medications. 20:49 Patient left the ED. aj1 Addendum: 08/07/2020 09:33 Addendum: COVID-19 Result: Negative result given to RN to notify pt. Attempted to i w contact pt regarding negative COVID-19 swab results. Left voice mail. 08/10/2020 11:00 Addendum: COVID-19 Result: Negative result given to RN to notify pt. Contacted by: pt agustín renteria contacted ed, negative result given to pt by Zina strange contracts attorney nurse.. Notified pt of negative COVID 19 swab results. Pt advised that even with a negative test result they should remain in isolation until symptom free for 3 days without medication. Pt also advised to return to the ED for worsening symptoms. Signatures: Dispatcher [employer] EDMS Essence Gagnon FNP-C FNP-Kia Maya Angela, IBETH RN aj1 Sosa Toro mr Vikash, Zina, IBETH CRISTINA iw Lennie Coronel RN RN ss Peltier, Brian, RN RN Rudolph Allen 2 Melvin Denton jp3 Corrections: (The following items were deleted from the chart) 08/03 18:34 18:34 Reassessment: Patient appears in no apparent distress at this time. No changes bp from previously documented assessment. Patient is alert, oriented x 3, equal unlabored respirations, skin warm/dry/pink. bp
--- NOTE | 2020-08-03 19:37 | EDPHYS ---
Physician Documentation [facility] Name: Susana Tamayo Age: 40 yrs Sex: Female : 1980 Arrival Date: 08/03/2020 Time: 17:43 Bed 20 Private MD: ED Physician Kyle Bae HPI: 08/03 18:09 This 40 yrs old Female presents to ER via Ambulatory with complaints of Chest kb Pain, Diarrhea. 18:10 The patient presents with pain that is acute, with no known mechanism of injury. The kb symptoms are located in the left scapular area, right scapular area and thoracic area. Onset: The symptoms/episode began/occurred at 16:15, upon waking. The pain does not radiate. Associated signs and symptoms: Pertinent positives: none. The problem was sustained without known cause. Modifying factors: The patient symptoms are alleviated by nothing, the patient symptoms are aggravated by breathing. Severity of symptoms: At their worst the symptoms were moderate, in the emergency department the symptoms are unchanged. The patient has not experienced similar symptoms in the past. The patient has not recently seen a physician. Historical: - Allergies: 17:52 Darvocet-N 100; ss - PMHx: 17:52 Anxiety; Asthma; Depression; GERD; Migraines; ss - PSHx: 17:52 shoulder surgery; Tubal ligation; ss - Immunization history:: Adult Immunizations up to date. - Social history:: Smoking status: Patient reports the use of cigarette tobacco products, smokes one-half pack cigarettes per day. ROS: 18:08 Constitutional: Negative for fever, chills, and weight loss, Cardiovascular: Negative kb for chest pain, palpitations, and edema, Respiratory: Negative for shortness of breath, cough, wheezing, and pleuritic chest pain, MS/Extremity: Negative for injury and deformity, Skin: Negative for injury, rash, and discoloration, Neuro: Negative for headache, weakness, numbness, tingling, and seizure. 18:08 Abdomen/GI: Positive for diarrhea, Negative for abdominal pain, nausea and vomiting. 18:08 Back: Positive for of the left scapular area, right scapular area and thoracic area, pain with inspiration. Exam: 18:08 Constitutional: This is a well developed, well nourished patient who is awake, alert, kb and in no acute distress. Head/Face: Normocephalic, atraumatic. Chest/axilla: Normal chest wall appearance and motion. Nontender with no deformity. No lesions are appreciated. Cardiovascular: Regular rate and rhythm with a normal S1 and S2. No gallops, murmurs, or rubs. Normal PMI, no JVD. No pulse deficits. Respiratory: Lungs have equal breath sounds bilaterally, clear to auscultation and percussion. No rales, rhonchi or wheezes noted. No increased work of breathing, no retractions or nasal flaring. Abdomen/GI: Soft, non-tender, with normal bowel sounds. No distension or tympany. No guarding or rebound. No evidence of tenderness throughout. Back: No spinal tenderness. No costovertebral tenderness. Full range of motion. Skin: Warm, dry with normal turgor. Normal color with no rashes, no lesions, and no evidence of cellulitis. MS/ Extremity: Pulses equal, no cyanosis. Neurovascular intact. Full, normal range of motion. Neuro: Awake and alert, GCS 15, oriented to person, place, time, and situation. Cranial nerves II-XII grossly intact. Motor strength 5/5 in all extremities. Sensory grossly intact. Cerebellar exam normal. Normal gait. Vital Signs: 17:51 BP 122 / 80; Pulse 86; Resp 17; Temp 98.1(TE); Pulse Ox 100% on R/A; Weight 68.04 kg; ss Height 5 ft. 8 in. (172.72 cm); Pain 9/10; 18:30 BP 115 / 83; Pulse 85; Resp 16; Pulse Ox 100% ; bp 19:30 BP 122 / 75; Pulse 88; Resp 18; Pulse Ox 99% on R/A; aj1 17:51 Body Mass Index 22.81 (68.04 kg, 172.72 cm) MDM: 17:48 Patient medically screened. kb 18:08 Data reviewed: vital signs, nurses notes. Data interpreted: Pulse oximetry: on room air kb is 100 %. Interpretation: normal. 19:35 Counseling: I had a detailed discussion with the patient and/or guardian regarding: the kb historical points, exam findings, and any diagnostic results supporting the discharge/admit diagnosis, radiology results, the need for outpatient follow up, a family practitioner, to return to the emergency department if symptoms worsen or persist or if there are any questions or concerns that arise at home. 08/03 19:34 Order name: COVID-19 kb 08/03 18:01 Order name: Chest Single View XRAY; Complete Time: 19:24 kb 08/03 18:01 Order name: EKG; Complete Time: 18:01 kb 08/03 18:01 Order name: EKG - Nurse/Tech; Complete Time: 18:12 kb Administered Medications: 20:09 Drug: TORadol 30 mg Route: IM; Site: right deltoid; aj1 20:45 Follow up: Response: No adverse reaction aj1 Disposition: 08/03/20 19:36 Discharged to Home. Impression: Diarrhea, unspecified, Chest pain on breathing. - Condition is Stable. - Discharge Instructions: Food Choices to Help Relieve Diarrhea, Adult, Costochondritis, Cwch-ce-Efrc, Diarrhea, Adult, [id number]. - Prescriptions for Diclofenac Sodium 75 mg Oral Tablet, Delayed Release (E.C.) - take 1 tablet by ORAL route 2 times per day As needed; 30 tablet. - Medication Reconciliation Form, Thank You Letter, Antibiotic Education, Prescription Opioid Use, Work release form form. - Follow up: Emergency Department; When: As needed; Reason: Worsening of condition. Follow up: Private Physician; When: 2 - 3 days; Reason: Recheck today's complaints, Continuance of care, Re-evaluation by your physician. Addendum: 08/08/2020 09:34 Co-signature as Attending Physician, Kyle Bae MD. r n Signatures: Dispatcher [employer] [facility] Essence Gagnon, SAS ARCHITECT-C SAS ARCHITECT-Meron Germain RN RN aj1 Kyle Bae MD MD rn Smirch, Shelby, RN RN ss Corrections: (The following items were deleted from the chart) 08/03 20:49 19:36 08/03/2020 19:36 Discharged to Home. Impression: Diarrhea, unspecified; Chest aj1 pain on breathing. Condition is Stable. Forms are Medication Reconciliation Form, Thank You Letter, Antibiotic Education, Prescription Opioid Use. Follow up: Emergency Department; When: As needed; Reason: Worsening of condition. Follow up: Private Physician; When: 2 - 3 days; Reason: Recheck today's complaints, Continuance of care, Re-evaluation by your physician. kb
[2020-08-03] MEDS ORDERED: KETOROLAC 30 MG/ML INJ ONE (20:09)
[2020-08-03 23:09] VITALS: TEMP 98.1
[2020-08-03 23:14] VITALS: BP 122/75; O2SAT 99
--- NOTE | 2020-08-05 06:11 | EKG ---
Test Date: 2020-08-03 Test Time: 18:08:12 Scudding Inspector: MARIELLE MEASUREMENT RESULTS: Intervals: Rate: 87 MT: 152 QRSD: 82 QT: 366 QTc: 440 Bazine: P: 56 MT: 152 QRS: 61 T: 45 INTERPRETIVE STATEMENTS: Normal sinus rhythm Normal ECG Compared to ECG 02/01/2020 23:02:02 No significant changes Electronically Signed On 08-05-20 06:09:18 SUPERVISOR TWISTING DEPARTMENT by Tavo Silverman
== END 2020-08-03 20:49 | disposition home or self-care (01) ==
LOC: ER 17:39
DX: R19.7 Diarrhea, unspecified (principal); Z20.828 Contact with and (suspected) exposure to other viral communicable diseases; F17.210 Nicotine dependence, cigarettes, uncomplicated; Z88.5 Allergy status to narcotic agent
CPT/HCPCS: 71045; 93005; 96372; 99284; U0002

== ENCOUNTER 2020-08-30 13:05 | Emergency (ER) | payer SELFPAY ==
--- OUTSIDE RECORDS SUMMARY | 2020-08-30 13:08 | XMS REPORT | Continuity of Care Document ---
:1980 Author Organization [facility] t Address [address] [place] [address] Care Team Providers Name Role Phone Unavailable Unavailable Unavailable Payers Payer Name Policy Type Policy Number Effective Date Expiration Date S ource Problems This patient has no known problems. Allergies, Adverse Reactions, Alerts Allergy Allergy Status Severity Reaction(s) Onset Inactive Treating Comm ents Source Name Type Date Date Clinician No Known DA Active U [facility] Allergie 04-11 [facility] 00:00: d 00 [facility] Medications This patient has no known medications. Procedures This patient has no known procedures. Results Test Description Test Time Test Comments Results Result [facility] e Comments - CT ABD PELVIS 2020-04-11 FAX: N W/CONT 20:28:00 Ebonie Parry MD [place]: St: REG Name: RENEE PARRISH [facility] : 1980 Age/S: 40/F [address] [facility] Unit: [id number] Loc: [address] Phys: [place] [id number] Acct: [id number] Dis Date: Status: REG ER PHONE #: [phone] Exam Date: 04/11/20202012 FAX #: [phone] Reason: PAIN EXAMS: CPT CODE: [id number] CT ABD PELVIS W/CONT [id number] LOCATION: T18 EXAM: CT ABDOMEN AND PELVIS [...] = ALKP) 90 Units/L 50.0-136 .0 N [id number] 18:37:00 Test Item Value Reference Range Interpretation Comments LIPASE (test code = LIP) 140 Units/L 65.0-230.0 N [id number] 18:37:00 Test Item Value Reference Range Interpretation Comments ALCOHOL (test code 0.00 gm/dL 0.00-0.00 N ETHYL ALC OHOL VALUES - = ALC) INTERPRETATION: 0.050 GM/DL - NOT INT OXICATED 0.100 GM/DL - INTOXICATED 0.3 50-0.450 GM/DL - SEVEREL Y INTOXICATED 0.5 50 GM/DL- FATAL INTOXICAT ION DRUGS OF ABUSE SCREEN [id number] 18:33:00 Test Item Value Reference Range Interpretation [...] (test NEGATIVE NEGATIVE code = [place]) URINALYSIS [id number] 18:32:00 Test Item Value Reference Range Interpretation [...] code = TRACE NONE BACU) UR HCG [id number] 18:32:00 Test Item Value Reference Range Interpretation Comments UR HCG QUAL (test code = HCGQLU) NEGATIVE NEGATIVE URINALYSIS [id number] 18:31:00 Test Item Value Reference Range Interpretation [...] (test code = NONE BACU) UR HCG [id number] 18:31:00 Test Item Value Reference Range Interpretation Comments UR HCG QUAL (test code = HCGQLU) NEGATIVE COMPREHENSIVE METABOLIC [id number] 18:27:00 Test Item Value Reference Range Interpretation [...] TOTAL (test Units/L 50.0-136.0 code = ALKP) [id number] 18:27:00 Test Item Value Reference Range Interpretation Comments LIPASE (test code = LIP) Units/L 65.0-230.0 [id number] 18:27:00 Test Item Value Reference Range Interpretation Comments ALCOHOL (test code = ALC) gm/dL 0.00-0.00 CBC W/AUTO [id number] 18:16:00 Test Item Value Reference Range Interpretation [...]
[2020-08-30] MEDS ORDERED: ONDANSETRON 4 MG/2 ML VIAL ONE (18:32)
[2020-08-30] MEDS ORDERED: KETOROLAC 30 MG/ML INJ ONE (18:32)
[2020-08-30 18:36] LABS: Absolute Lymphocytes (CBC) 2.6 K/uL (0.7-4.9); Basophils % 1.1 % (0-1.3); Hematocrit 42.3 % (36.0-45.0); Lymphocytes % 28.1 % (15.3-44.8); MPV 7.4 fL (7.6-11.3); RBC Red Blood Cell Count 4.47 M/uL (3.86-4.86)
[2020-08-30 18:41] LABS: Protime INR 0.96
[2020-08-30 18:51] LABS: Barbiturates NEGATIVE (NEGATIVE); Benzodiazepines NEGATIVE (NEGATIVE); Cocaine NEGATIVE (NEGATIVE); METHAMPHETAM NEGATIVE (NEGATIVE); Methadone NEGATIVE (NEGATIVE); Opiates NEGATIVE (NEGATIVE); Phencyclidine NEGATIVE (NEGATIVE); THC Cannibis NEGATIVE (NEGATIVE)
[2020-08-30 18:57] LABS: ALT/SGPT 28 U/L (12-78); AST/SGOT 23 U/L (15-37); Albumin 3.8 g/dL (3.4-5.0); Alkaline Phosphatase 114 U/L (45-117); BUN Blood Urea Nitrogen 6 mg/dL (7-18); Bicarbonate 24 mmol/L (21-32); Bilirubin Direct < 0.1 mg/dL (0-0.2); Bilirubin Total 0.4 mg/dL (0.2-1.0); Glucose Level 101 mg/dL (74-106); Magnesium 2.2 mg/dL (1.8-2.4); NT PRO-BNP 12 pg/mL (<125); Potassium 4.1 mmol/L (3.5-5.1); Protein, Total 8.1 g/dL (6.4-8.2); Sodium Level 138 mmol/L (136-145); Troponin (Emerg Dept Use Only) < 0.02 ng/mL (0.0-0.045)
[2020-08-30 19:06] LABS: Urine Glucose NEGATIVE (NEG)
[2020-08-30 19:07] LABS: Urine Blood NEGATIVE (NEG); Urine Protein NEGATIVE (NEG)
--- NOTE | 2020-08-30 19:49 | RAD REPORT ---
EXAM DESCRIPTION: RAD - Chest Single View - 08/30/2020 6:36 pm CLINICAL HISTORY: CHEST PAIN, left side COMPARISON: Portable August 03 TECHNIQUE: AP portable chest image was obtained 08/30/2020 6:36 pm . FINDINGS: Lungs are clear. Heart and vasculature are normal. No measurable pleural effusion and no p neumothorax. No acute bony abnormality seen. No acute aortic findings suspected. IMPRESSION: No acute cardiopulmonary process. No significant change from comparison study.
--- NOTE | 2020-08-30 20:04 | ER ---
Nurse's Notes [facility] Name: Susana Tamayo Age: 40 yrs Sex: Female : 1980 Arrival Date: 08/30/2020 Time: 13:06 Bed 23 Private MD: Diagnosis: Other chest pain Presentation: 08/30 13:21 Chief complaint: Patient states: L sided Chest pain 2 hrs pain, sharp, intermittent, ca1 radiating to the back. Denies HX of heart attack. Denies injury to chest. Reports nausea. Coronavirus screen: Client denies travel out of the [place] in the last 14 days. nausea, Client presents with at least one sign or symptom that may indicate coronavirus-19. Standard/surgical mask placed on the client. Provider contacted for isolation considerations. Ebola Screen: Patient negative for fever greater than or equal to 101.5 degrees Fahrenheit, and additional compatible Ebola Virus Disease symptoms Patient denies exposure to infectious person. Patient denies travel to an Ebola-affected area in the 21 days before illness onset. No symptoms or risks identified at this time. Initial Sepsis Screen: Does the patient meet any 2 criteria? No. Patient's initial sepsis screen is negative. Does the patient have a suspected source of infection? No. Patient's initial sepsis screen is negative. Risk Assessment: Do you want to hurt yourself or someone else? Patient reports no desire to harm self or others. Onset of symptoms was August 30, 2020. 13:21 Method Of Arrival: Ambulatory ca1 13:21 Acuity: DIMPLE 3 ca1 Triage Assessment: 18:30 General: Appears in no apparent distress. Behavior is calm. 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 - Social history:: Smoking status: Patient reports the use of cigarette tobacco products, smokes one-half pack cigarettes per day. Screenin:00 Abuse screen: Denies threats or abuse. Denies injuries from another. Nutritional iw screening: No deficits noted. Tuberculosis screening: No symptoms or risk factors identified. Fall Risk None identified. Assessment: 18:30 General: Appears in no apparent distress. Behavior is calm, cooperative. Pain: iw Complains of pain in anterior aspect of left upper chest, left lateral posterior chest, left lateral anterior chest and left breast. Pain: Pain does not radiate. Pain began 2 hours ago. Neuro: Level of Consciousness is awake, alert, obeys commands, Oriented to person, place, time, situation. Cardiovascular: Reports chest pain. Respiratory: Respiratory effort is even, unlabored, Respiratory pattern is regular. Derm: Skin is intact, is healthy with good turgor. Musculoskeletal: Range of motion: intact in all extremities. Vital Signs: 13:21 BP 106 / 78; Pulse 97; Resp 18 S; Temp 97.2(TE); Pulse Ox 99% on R/A; Weight 77.11 kg ca1 (R); Height 5 ft. 8 in. (172.72 cm) (R); Pain 8/10; 17:00 BP 108 / 66; Pulse 82; Resp 16; Temp 97.8(O); Pulse Ox 99% ; mh5 18:36 BP 124 / 71; Pulse 92; Resp 18; Temp 98.0(O); Pulse Ox 99% on R/A; mh5 19:19 BP 115 / 57; Pulse 88; Resp 17; Temp 97.9(O); Pulse Ox 97% ; mh5 13:21 Body Mass Index 25.85 (77.11 kg, 172.72 cm) ca1 ED Course: 13:06 Patient arrived in ED. ag5 13:23 Triage completed. ca1 13:24 Arm band placed on right wrist. ca1 17:47 EKG done, by ED staff. Inserted. mh5 17:49 Piero Marie PA is PHCP. cp 17:49 Kyle Bae MD is Attending Physician. cp 18:14 Zina Suh, IBETH is Primary Nurse. iw 18:15 Inserted Missed attempt(s): 20 gauge in right forearm. mh5 18:16 Patient has correct armband on for positive identification. Placed in gown. Cardiac mh5 monitor on. Pulse ox on. NIBP on. 18:36 UDS Sent. mh5 18:36 Urine collected: clean catch specimen, clear. mh5 18:37 XRAY Chest (1 view) In Process Unspecified. EDMS 20:12 IV discontinued, Pressure dressing applied. mh5 20:12 No provider procedures requiring assistance completed. Patient maintains SpO2 iw saturation greater than 95% on room air. 20:12 IV discontinued, intact, bleeding controlled, No redness/swelling at site. Pressure iw dressing applied. Administered Medications: 18:47 Drug: TORadol - Ketorolac 15 mg Route: IVP; Site: right antecubital; iw 18:48 Drug: Zofran (Ondansetron) 4 mg Route: IVP; Site: right antecubital; iw Outcome: 20:03 Discharge ordered by MD. cp 20:13 Discharged to home ambulatory. iw 20:13 Condition: good 20:13 Discharge instructions given to patient, Instructed on discharge instructions, follow up and referral plans. medication usage, Demonstrated understanding of instructions, follow-up care, medications, Prescriptions given X 1. 20:14 Patient left the ED. 5 Signatures: Dispatcher [employer] EDMS Zina Suh RN RN iw Piero Marie PA PA cp Martinez, Maria [facility] Sharyn Billy RN RN ca1 Deb Archuleta [facility] Corrections: (The following items were deleted from the chart) 18:38 18:17 BP 108 / 66; Pulse 82bpm; Resp 16bpm; Pulse Ox 99%; Temp 97.8F Oral; mh5 5
--- NOTE | 2020-08-30 20:04 | EDPHYS ---
Physician Documentation [facility] Name: Susana Tamayo Age: 40 yrs Sex: Female : 1980 Arrival Date: 08/30/2020 Time: 13:06 Bed 23 Private MD: ED Physician Kyle Bae HPI: 08/30 17:55 This 40 yrs old Female presents to ER via Ambulatory with complaints of Chest cp Pain, Nausea. 17:55 The patient or guardian reports chest pain that is located primarily in the anterior cp chest wall, left. 17:55 The pain does not radiate. Associated signs and symptoms: Pertinent positives: nausea, cp Pertinent negatives: abdominal pain, lower extremity pain, lower extremity swelling, lightheadedness, shortness of breath, vomiting. The chest pain is described as sharp. Duration: The patient or guardian reports a single episode, that is still ongoing. Modifying factors: the symptoms are aggravated by palpation of area. PLC ENGINEER: 13:28 LMP 07/12/2020 ca1 Historical: - Allergies: 13:24 Darvocet-N 100; ca1 - PMHx: 13:24 Anxiety; Asthma; Depression; GERD; Migraines; ca1 - PSHx: 13:24 shoulder surgery; Tubal ligation; ca1 - Immunization history:: Adult Immunizations up to date, Flu vaccine is not up to date. - Social history:: Smoking status: Patient reports the use of cigarette tobacco products, smokes one-half pack cigarettes per day. ROS: 18:00 Constitutional: Negative for body aches, chills, fever, poor PO intake. cp 18:00 Cardiovascular: Positive for chest pain, Negative for edema, palpitations. cp 18:00 Respiratory: Positive for cough, with no reported sputum, Negative for shortness of breath. 18:00 Abdomen/GI: Negative for abdominal pain. 18:00 Eyes: Negative for injury, pain, redness, and discharge. cp 18:00 ENT: Negative for ear pain, sore throat, difficulty swallowing, difficulty handling cp secretions. 18:00 Back: Negative for radiated pain. 18:00 Skin: Negative for rash. 18:00 Neuro: Negative for altered mental status, headache, weakness. 18:00 All other systems are negative. Exam: 13:52 ECG was reviewed by the Attending Physician. cp 18:05 Constitutional: The patient appears in no acute distress, alert, awake, cp non-diaphoretic, non-toxic, well developed, well nourished. 18:05 Head/Face: Normocephalic, atraumatic. cp 18:05 Eyes: Periorbital structures: appear normal, Conjunctiva: normal, no exudate, no injection, Sclera: no appreciated abnormality, Lids and lashes: appear normal, bilaterally. 18:05 ENT: External ear(s): are unremarkable, Nose: is normal, Mouth: Lips: moist, Oral mucosa: moist, Posterior pharynx: Airway: no evidence of obstruction, patent. 18:05 Neck: ROM/movement: is normal, is supple, without pain, no range of motions limitations. 18:05 Chest/axilla: Inspection: normal, Palpation: is normal, no crepitus, no tenderness. 18:05 Cardiovascular: Rate: normal, Rhythm: regular, Pulses: Pulses are 2+ in right radial artery and left radial artery. Edema: is not appreciated, JVD: is not appreciated. 18:05 Respiratory: the patient does not display signs of respiratory distress, Respirations: normal, no use of accessory muscles, no retractions, labored breathing, is not present, Breath sounds: are clear throughout, no decreased breath sounds, no stridor, no wheezing. 18:05 Abdomen/GI: Inspection: abdomen appears normal, Bowel sounds: active, all quadrants, Palpation: abdomen is soft and non-tender, in all quadrants. 18:05 Back: pain, is absent, ROM is normal. 18:05 Skin: no rash present. 18:05 Neuro: Orientation: to person, place \T\ time. Mentation: is normal, Motor: moves all fours, strength is normal. Vital Signs: 13:21 BP 106 / 78; Pulse 97; Resp 18 S; Temp 97.2(TE); Pulse Ox 99% on R/A; Weight 77.11 kg ca1 (R); Height 5 ft. 8 in. (172.72 cm) (R); Pain 8/10; 17:00 BP 108 / 66; Pulse 82; Resp 16; Temp 97.8(O); Pulse Ox 99% ; mh5 18:36 BP 124 / 71; Pulse 92; Resp 18; Temp 98.0(O); Pulse Ox 99% on R/A; mh5 19:19 BP 115 / 57; Pulse 88; Resp 17; Temp 97.9(O); Pulse Ox 97% ; mh5 13:21 Body Mass Index 25.85 (77.11 kg, 172.72 cm) ca1 MDM: 17:55 Patient medically screened. cp 18:41 Test interpretation: by ED physician or midlevel provider: ECG, chest xray negative for cp infiltrates. 20:02 Data reviewed: vital signs, nurses notes, lab test result(s), EKG, radiologic studies, cp plain films. 20:02 Differential diagnosis: abnormal EKG, acute myocardial infarction, acute pericarditis, cp chest wall pain, pericarditis, pleurisy, pneumonia, pneumothorax, pulmonary embolus, stable angina, unstable angina. Special discussion: Based on the patient's history, exam, and Dx evaluation, there is no indication for emergent intervention or inpatient Tx. It is understood by the patient/guardian that if the Sx's persist or worsen they need to return immediately for re-evaluation. ED course: VSS. Pain improved. EKG and troponin negative. Will discharge to home for continued monitoring. 08/30 17:50 Order name: Basic Metabolic Panel cp 08/30 17:50 Order name: CBC with Diff cp 08/30 17:50 Order name: LFT's cp 08/30 17:50 Order name: Magnesium cp 08/30 17:50 Order name: NT PRO-BNP cp 08/30 17:50 Order name: PT-INR cp 08/30 17:50 Order name: Troponin (emerg Dept Use Only) cp 08/30 17:50 Order name: UDS; Complete Time: 19:56 cp 08/30 17:51 Order name: Basic Metabolic Panel; Complete Time: 19:56 EDMS 08/30 19:56 Interpretation: Normal except: BUN 6; GFR 81. cp 08/30 17:51 Order name: CBC with Automated Diff; Complete Time: 19:56 EDMS 08/30 19:56 Interpretation: Normal except: MPV 7.4. cp 08/30 17:51 Order name: Liver (Hepatic) Function; Complete Time: 19:56 EDMS 08/30 17:51 Order name: Magnesium; Complete Time: 19:56 EDMS 08/30 17:51 Order name: NT PRO-BNP; Complete Time: 19:56 EDMS 08/30 17:51 Order name: Protime (+INR); Complete Time: 19:56 EDRI 08/30 13:32 Order name: EKG; Complete Time: 13:32 ca1 08/30 13:32 Order name: EKG - Nurse/Tech; Complete Time: 13:48 ca1 08/30 17:50 Order name: XRAY Chest (1 view); Complete Time: 19:56 08/30 19:56 Interpretation: Report reviewed. 08/30 17:50 Order name: Cardiac monitoring; Complete Time: 18:50 08/30 17:50 Order name: IV Saline Lock; Complete Time: 18:50 08/30 17:50 Order name: Labs collected and sent; Complete Time: 18:50 08/30 17:50 Order name: O2 Per Protocol; Complete Time: 18:50 08/30 17:50 Order name: O2 Sat Monitoring; Complete Time: 18:50 08/30 17:50 Order name: Urine Dipstick-Ancillary (obtain specimen); Complete Time: 18:36 08/30 17:50 Order name: Urine Test (obtain specimen); Complete Time: 18:36 08/30 17:51 Order name: Troponin (Emerg Dept Use Only); Complete Time: 19:56 EDRI 08/30 19:57 Interpretation: Reviewed. 08/30 18:37 Order name: Urine Dipstick--Ancillary (enter results); Complete Time: 19:56 em1 08/30 18:38 Order name: Urine --Ancillary (enter results); Complete Time: 19:56 em1 EC:52 Rate is 94 beats/min. Rhythm is regular. NE interval is normal. QRS interval is normal. cp QT interval is normal. T waves are Inverted in lead aVR. Interpreted by me. Reviewed by me. Administered Medications: 18:47 Drug: TORadol - Ketorolac 15 mg Route: IVP; Site: right antecubital; iw 18:48 Drug: Zofran (Ondansetron) 4 mg Route: IVP; Site: right antecubital; iw Disposition: 08/31 08:49 Co-signature as Attending Physician, Kyle Bae MD. rn Disposition: 08/30/20 20:03 Discharged to Home. Impression: Other chest pain. - Condition is Stable. - Discharge Instructions: Nonspecific Chest Pain, Aspirin and Your Heart. - Prescriptions for Diclofenac Sodium 75 mg Oral Tablet, Delayed Release (E.C.) - take 1 tablet by ORAL route 2 times per day; 20 tablet. - Work release form, Medication Reconciliation Form, Thank You Letter, Antibiotic Education, Prescription Opioid Use form. - Follow up: Private Physician; When: 2 - 3 days; Reason: Worsening of condition. - Problem is new. - Symptoms have improved. Signatures: Dispatcher [employer] EDZina Vincent RN RN Kyle Moya MD MD rn Piero Marie PA PA cp Martinez, Maria 5 AcSharyn gill RN RN ca1 Corrections: (The following items were deleted from the chart) 08/30 20:14 20:03 08/30/2020 20:03 Discharged to Home. Impression: Other chest pain. Condition is mh5 Stable. Forms are Medication Reconciliation Form, Thank You Letter, Antibiotic Education, Prescription Opioid Use. Follow up: Private Physician; When: 2 - 3 days; Reason: Worsening of condition. Problem is new. Symptoms have improved. cp
[2020-08-30 21:04] VITALS: BP 115/57; TEMP 97.9; O2SAT 97
== END 2020-08-30 20:14 | disposition home or self-care (01) ==
LOC: ER 13:05
DX: R07.9 Chest pain, unspecified (principal); F17.210 Nicotine dependence, cigarettes, uncomplicated; Z88.5 Allergy status to narcotic agent
CPT/HCPCS: 36415; 71045; 80048; 80076; 80307; 81003; 81025; 83735; 83880; 84484; 85025; 85610; 93005; 96374; 96375; 99285; J2405

== ENCOUNTER 2020-09-14 22:47 | Emergency (ER) | payer SELFPAY ==
--- OUTSIDE RECORDS SUMMARY | 2020-09-14 22:50 | XMS REPORT | Continuity of Care Document ---
:1980 Author Organization [facility] t Address [address] [place] [address] Care Team Providers Name Role Phone Unavailable Unavailable Unavailable Payers Payer Name Policy Type Policy Number Effective Date Expiration Date S ource Problems This patient has no known problems. Allergies, Adverse Reactions, Alerts Allergy Allergy Status Severity Reaction(s) Onset Inactive Treating Comm ents Source Name Type Date Date Clinician No Known DA Active U [facility] Allergie 04-11 [facility] 00:00: d 00 [facility] Medications This patient has no known medications. Procedures This patient has no known procedures. Results Test Description Test Time Test Comments Results Result [facility] e Comments - CT ABD PELVIS 2020-04-11 FAX: N W/CONT 20:28:00 Ebonie Parry MD [place]: St: REG Name: ERNEE PARRISH [facility] : 1980 Age/S: 40/F [address] [facility] Unit: [id number] Loc: [address] Phys: [place] [id number] Acct: [id number] Dis Date: Status: REG ER PHONE #: [phone] Exam Date: 04/11/20202012 FAX #: [phone] Reason: PAIN EXAMS: CPT CODE: [id number] CT ABD PELVIS W/CONT [address] LOCATION: T18 EXAM: CT ABDOMEN AND PELVIS [...] = ALKP) 90 Units/L 50.0-136 .0 N [id number] 18:37:00 Test Item Value Reference Range Interpretation Comments LIPASE (test code = LIP) 140 Units/L 65.0-230.0 N [id number] 18:37:00 Test Item Value Reference Range Interpretation Comments ALCOHOL (test code 0.00 gm/dL 0.00-0.00 N ETHYL ALC OHOL VALUES - = ALC) INTERPRETATION: 0.050 GM/DL - NOT INT OXICATED 0.100 GM/DL - INTOXICATED 0.3 50-0.450 GM/DL - SEVEREL Y INTOXICATED 0.5 50 GM/DL- FATAL INTOXICAT ION DRUGS OF ABUSE SCREEN [id number] 18:33:00 Test Item Value Reference Range Interpretation [...] (test NEGATIVE NEGATIVE code = [place]) URINALYSIS [id number] 18:32:00 Test Item Value Reference Range Interpretation [...] code = TRACE NONE BACU) UR HCG [id number] 18:32:00 Test Item Value Reference Range Interpretation Comments UR HCG QUAL (test code = HCGQLU) NEGATIVE NEGATIVE URINALYSIS [id number] 18:31:00 Test Item Value Reference Range Interpretation [...] (test code = NONE BACU) UR HCG [id number] 18:31:00 Test Item Value Reference Range Interpretation Comments UR HCG QUAL (test code = HCGQLU) NEGATIVE COMPREHENSIVE METABOLIC [id number] 18:27:00 Test Item Value Reference Range Interpretation [...] TOTAL (test Units/L 50.0-136.0 code = ALKP) [id number] 18:27:00 Test Item Value Reference Range Interpretation Comments LIPASE (test code = LIP) Units/L 65.0-230.0 [id number] 18:27:00 Test Item Value Reference Range Interpretation Comments ALCOHOL (test code = ALC) gm/dL 0.00-0.00 CBC W/AUTO [id number] 18:16:00 Test Item Value Reference Range Interpretation [...]
[2020-09-14 23:40] LABS: Urine Blood NEGATIVE (NEG); Urine Glucose NEGATIVE (NEG); Urine Protein NEGATIVE (NEG)
[2020-09-14 23:41] LABS: Absolute Lymphocytes (CBC) 1.8 K/uL (0.7-4.9); Basophils % 0.4 % (0-1.3); Hematocrit 39.5 % (36.0-45.0); Lymphocytes % 21.6 % (15.3-44.8); MPV 7.2 fL (7.6-11.3); Protime INR 1.03; RBC Red Blood Cell Count 4.16 M/uL (3.86-4.86)
[2020-09-14 23:59] LABS: ALT/SGPT 23 U/L (12-78); AST/SGOT 14 U/L (15-37); Albumin 3.6 g/dL (3.4-5.0); Alkaline Phosphatase 100 U/L (45-117); BUN Blood Urea Nitrogen 3 mg/dL (7-18); Bicarbonate 29 mmol/L (21-32); Bilirubin Direct < 0.1 mg/dL (0-0.2); Bilirubin Total 0.4 mg/dL (0.2-1.0); Glucose Level 88 mg/dL (74-106); Magnesium 2.1 mg/dL (1.8-2.4); NT PRO-BNP 12 pg/mL (<125); Potassium 3.6 mmol/L (3.5-5.1); Protein, Total 7.6 g/dL (6.4-8.2); Sodium Level 141 mmol/L (136-145); Troponin (Emerg Dept Use Only) < 0.02 ng/mL (0.0-0.045)
[2020-09-15] MEDS ORDERED: KETOROLAC 30 MG/ML INJ ONE (00:25)
[2020-09-15] MEDS ORDERED: METHYLPREDNISOLONE 125 MG INJ ONE (00:26)
[2020-09-15] MEDS ORDERED: ALBUTEROL 2.5 MG/3 ML NEB SOL ONE (00:26)
--- NOTE | 2020-09-15 00:56 | ER ---
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 Pt also reports a cough. Coronavirus screen: Client denies travel out of the [place] in the last 14 days. cough unrelated to allergies, nausea, Client presents with at least one sign or symptom that may indicate coronavirus-19. Standard/surgical mask placed on the client. Ebola Screen: Patient negative for fever greater than or equal to 101.5 degrees Fahrenheit, and additional compatible Ebola Virus Disease symptoms Patient denies exposure to infectious person. Patient denies travel to an Ebola-affected area in the 21 days before illness onset. No symptoms or risks identified at this time. Initial Sepsis Screen: Does the patient meet any 2 criteria? No. Patient's initial sepsis screen is negative. Does the patient have a suspected source of infection? Yes: Productive cough/pneumonia. Risk Assessment: Do you want to hurt yourself or someone else? Patient reports no desire to harm self or others. Onset of symptoms was September 14, 2020. 23:02 Method Of Arrival: EMS: [facility] dm5 23:02 Acuity: DIMPLE 3 dm5 Triage Assessment: 23:09 General: Appears in no apparent distress. Behavior is calm, cooperative. Neuro: dm5 Cardiovascular: Reports chest pain, nausea, vomiting. Respiratory: Airway is patent. Derm: Skin is pink, warm \T\ dry. Historical: - Allergies: 23:09 Darvocet-N 100; dm5 - PMHx: 23:09 Anxiety; Asthma; Depression; GERD; Migraines; dm5 - Immunization history:: Adult Immunizations up to date. - Social history:: Smoking status: Patient reports the use of cigarette tobacco products, smokes one-half pack cigarettes per day. Screenin:20 Abuse screen: Denies threats or abuse. Denies injuries from another. Nutritional dm5 screening: No deficits noted. Tuberculosis screening: No symptoms or risk factors identified. Fall Risk None identified. Assessment: 23:20 General: Appears in no apparent distress. comfortable, Behavior is calm, cooperative. dm5 Pain: Complains of pain in chest. Neuro: No deficits noted. Cardiovascular: Reports chest pain, nausea. Respiratory: Airway is patent Respiratory effort is even, unlabored. Derm: Skin is pink, warm \T\ dry. Vital Signs: 23:02 BP 112 / 75; Pulse 95; Resp 20; Pulse Ox 98% on R/A; dm5 09/15 01:39 BP 121 / 62; Pulse 83; Resp 21; Temp 98.3; Pulse Ox 100% on R/A; dm5 ED Course: 09/14 22:58 Patient arrived in ED. mw2 23:02 Emy Crespo, RN is Primary Nurse. dm5 23:08 Triage completed. dm5 23:09 Arm band placed on right wrist. Patient placed in an exam room, on a stretcher, on dm5 director of cardiac cath lab. 23:09 Maintain EMS IV. Dressing intact. Good blood return noted. Site clean \T\ dry. Gauge \T\ dm 5 site: 20 G right AC. 23:20 Patient has correct armband on for positive identification. Bed in low position. dm5 23:20 No provider procedures requiring assistance completed. dm5 23:46 Rashad Abarca NP is PHCP. pm1 23:46 Jason Villa MD is Attending Physician. pm1 23:50 Basic Metabolic Panel Sent. dm5 23:50 CBC with Diff Sent. dm5 23:57 XRAY Chest (1 view) In Process Unspecified. EDMS 09/15 00:32 None, None is Private Physician. sg 01:45 IV discontinued, intact, bleeding controlled, No redness/swelling at site. Pressure dm5 dressing applied. Administered Medications: 00:18 Drug: SOLU-Medrol 125 mg Route: IVP; Site: right forearm; dm5 00:19 Drug: TORadol 30 mg Route: IVP; Site: right forearm; dm5 00:21 Drug: Albuterol 2.5 mg Route: Inhalation; dm5 Outcome: 00:55 Discharge ordered by . pm1 01:40 Discharged to home ambulatory. dm5 01:40 Condition: good 01:40 Discharge instructions given to patient, Instructed on discharge instructions, Demonstrated understanding of instructions, follow-up care, medications. 01:52 Patient left the ED. dm5 Signatures: Dispatcher [employer] Emy Camarena RN RN dm5 Brian Eid RN RN sg Marinas, Patrick, MOLDER SWEEP MOLDER SWEEP pm1 Rudolph Allen mw2
--- NOTE | 2020-09-15 00:56 | EDPHYS ---
Physician Documentation [facility] Name: Susana Tamayo Age: 40 yrs Sex: Female : 1980 Arrival Date: 09/14/2020 Time: 22:58 Bed 27 Private MD: None, None ED Physician Jason Villa HPI: 09/15 00:00 This 40 yrs old Female presents to ER via EMS with complaints of pm1 Nausea/Vomiting, Chest Pain > 30 y/o. 00:00 The patient or guardian reports chest pain that is located primarily in the mid-sternal pm1 area. The pain radiates to both arms, Numbness and tingling to both arms. Associated signs and symptoms: Pertinent positives: cough, nausea, vomiting, Anxiety, Pertinent negatives: abdominal pain, diaphoresis, dizziness, headache, shortness of breath. The chest pain is described as a pressure, sharp. Duration: The patient or guardian reports a single episode, that is still ongoing. Modifying factors: The symptoms are alleviated by nothing. the symptoms are aggravated by nothing. Severity of pain: in the emergency department the pain is unchanged. The patient has experienced similar episodes in the past, several times, today's symptoms are similar, to previous chest pain unspecified, but without nausea and vomiting. The patient has not recently seen a physician. Onset at 1800 on 09/14. Historical: - Allergies: 09/14 23:09 Darvocet-N 100; dm5 - PMHx: 23:09 Anxiety; Asthma; Depression; GERD; Migraines; dm5 - Immunization history:: Adult Immunizations up to date. - Social history:: Smoking status: Patient reports the use of cigarette tobacco products, smokes one-half pack cigarettes per day. ROS: 09/15 00:00 Constitutional: Negative for fever, chills, and weight loss, ENT: Negative for injury, pm1 pain, and discharge, Neck: Negative for injury, pain, and swelling. Respiratory: Negative for shortness of breath, cough, wheezing, and pleuritic chest pain. Back: Negative for injury and pain, : Negative for injury, bleeding, discharge, and swelling, MS/Extremity: Negative for injury and deformity, Skin: Negative for injury, rash, and discoloration, Neuro: Negative for headache, weakness, numbness, tingling, and seizure. Cardiovascular: Positive for chest pain, Negative for edema, palpitations. Abdomen/GI: Positive for nausea and vomiting, Negative for abdominal pain, diarrhea, constipation. Exam: 00:00 Constitutional: This is a well developed, well nourished patient who is awake, alert, pm1 and in no acute distress. Head/Face: Normocephalic, atraumatic. Chest/axilla: Normal chest wall appearance and motion. Nontender with no deformity. No lesions are appreciated. Cardiovascular: Regular rate and rhythm with a normal S1 and S2. No gallops, murmurs, or rubs. Normal PMI, no JVD. No pulse deficits. 00:00 Back: No spinal tenderness. No costovertebral tenderness. Full range of motion. Skin: Warm, dry with normal turgor. Normal color with no rashes, no lesions, and no evidence of cellulitis. MS/ Extremity: Pulses equal, no cyanosis. Neurovascular intact. Full, normal range of motion. 00:00 Respiratory: the patient does not display signs of respiratory distress, Respirations: normal, Breath sounds: wheezing: expiratory that is mild, is heard diffusely. 00:00 Abdomen/GI: Exam negative for acute changes, Inspection: abdomen appears normal, Palpation: abdomen is soft and non-tender, in all quadrants. 00:00 Neuro: Exam negative for acute changes, Orientation: is normal, Mentation: is normal, Motor: is normal, moves all fours. Vital Signs: 09/14 23:02 BP 112 / 75; Pulse 95; Resp 20; Pulse Ox 98% on R/A; dm5 09/15 01:39 BP 121 / 62; Pulse 83; Resp 21; Temp 98.3; Pulse Ox 100% on R/A; dm5 MDM: 09/14 23:46 Patient medically screened. pm1 09/15 00:54 Data reviewed: vital signs. Data interpreted: Pulse oximetry: on room air is 98 %. pm1 Interpretation: normal. 00:54 Counseling: I had a detailed discussion with the patient and/or guardian regarding: the pm1 historical points, exam findings, and any diagnostic results supporting the discharge/admit diagnosis, lab results, radiology results, the need for outpatient follow up, to return to the emergency department if symptoms worsen or persist or if there are any questions or concerns that arise at home. 09/14 23:10 Order name: Basic Metabolic Panel [facility] 09/14 23:10 Order name: CBC with Diff [facility] 09/14 23:10 Order name: LFT's; Complete Time: 00:01 [facility] 09/14 23:10 Order name: Magnesium; Complete Time: 00:01 [facility] 09/14 23:10 Order name: NT PRO-BNP; Complete Time: 00:01 [facility] 09/14 23:10 Order name: PT-INR; Complete Time: 23:49 [facility] 09/14 23:10 Order name: Troponin (emerg Dept Use Only); Complete Time: 00:01 [facility] 09/14 23:10 Order name: XRAY Chest (1 view) [facility] 09/14 23:11 Order name: Basic Metabolic Panel; Complete Time: 00:01 [facility] 09/14 23:11 Order name: CBC with Automated Diff; Complete Time: 23:46 [facility] 09/14 23:35 Order name: Urine Dipstick--Ancillary (enter results); Complete Time: 23:46 [facility] 09/14 23:35 Order name: Urine --Ancillary (enter results); Complete Time: 23:46 [facility] 09/14 23:10 Order name: EKG; Complete Time: 23:12 [facility] 09/14 23:10 Order name: Cardiac monitoring; Complete Time: 23:49 [facility] 09/14 23:10 Order name: EKG - Nurse/Tech; Complete Time: 23:50 [facility] 09/14 23:10 Order name: IV Saline Lock; Complete Time: 23:11 [facility] 09/14 23:10 Order name: Labs collected and sent; Complete Time: 23:31 [facility] 09/14 23:10 Order name: O2 Per Protocol; Complete Time: 23:31 [facility] 09/14 23:10 Order name: O2 Sat Monitoring; Complete Time: 23:31 [facility] Administered Medications: 00:18 Drug: SOLU-Medrol 125 mg Route: IVP; Site: right forearm; dm5 00:19 Drug: TORadol 30 mg Route: IVP; Site: right forearm; dm5 00:21 Drug: Albuterol 2.5 mg Route: Inhalation; dm5 Disposition: 07:02 Co-signature as Attending Physician, Jason Villa MD. pkl Disposition: 09/15/20 00:55 Discharged to Home. Impression: Chest pain, unspecified, Asthma. - Condition is Stable. - Discharge Instructions: Asthma, Adult, Nonspecific Chest Pain, Steps to Quit Smoking, Smoking Hazards. - Prescriptions for Medrol ([place]) 4 mg Oral Tablets, Dose Pack - take 1 tablet by ORAL route as directed - follow package instructions; 1 packet. - Medication Reconciliation Form, Thank You Letter, Antibiotic Education, Prescription Opioid Use form. - Follow up: Emergency Department; When: As needed; Reason: Worsening of condition. Follow up: Private Physician; When: 2 - 3 days; Reason: Recheck today's complaints, Continuance of care, Re-evaluation by your physician. - Problem is new. - Symptoms have improved. Signatures: Dispatcher [employer] Emy Camarena RN RN dm5 Allen, MD BRIAN Gomez pkl Rashad Abarca, CLAUDINE CARPET INSPECTOR FINISHED pm1 Corrections: (The following items were deleted from the chart) 01:35 00:55 09/15/2020 00:55 Discharged to Home. Impression: Chest pain, unspecified. pm1 Condition is Stable. Forms are Medication Reconciliation Form, Thank You Letter, Antibiotic Education, Prescription Opioid Use. Follow up: Emergency Department; When: As needed; Reason: Worsening of condition. Follow up: Private Physician; When: 2 - 3 days; Reason: Recheck today's complaints, Continuance of care, Re-evaluation by your physician. Problem is new. Symptoms have improved. pm1 01:52 01:35 09/15/2020 00:55 Discharged to Home. Impression: Chest pain, unspecified; Asthma. dm5 Condition is Stable. Discharge Instructions: Nonspecific Chest Pain. Forms are Medication Reconciliation Form, Thank You Letter, Antibiotic Education, Prescription Opioid Use. Follow up: Emergency Department; When: As needed; Reason: Worsening of condition. Follow up: Private Physician; When: 2 - 3 days; Reason: Recheck today's complaints, Continuance of care, Re-evaluation by your physician. Problem is new. Symptoms have improved. pm1
[2020-09-15 01:59] VITALS: BP 121/62; TEMP 98.3; O2SAT 100
--- NOTE | 2020-09-15 08:28 | RAD REPORT ---
EXAM DESCRIPTION: RAD - Chest Single View - 09/14/2020 11:56 pm CLINICAL HISTORY: CHEST PAIN COMPARISON: August 2020 portable study TECHNIQUE: AP portable chest image was obtained 09/14/2020 11:56 pm . FINDINGS: Lungs are clear. Heart and vasculature are normal. No measurable pleural effusion and no p neumothorax. No acute bony abnormality seen. Surgical hardware present proximal left humerus. No acut e aortic findings suspected. IMPRESSION: No acute cardiopulmonary process. No significant change from comparison study.
--- NOTE | 2020-09-16 06:11 | EKG ---
Test Date: 2020-09-14 Test Time: 23:45:29 Geological Drafter: CLEM MEASUREMENT RESULTS: Intervals: Rate: 85 NV: 142 QRSD: 84 QT: 374 QTc: 445 [place]: P: 69 NV: 142 QRS: 87 T: 60 INTERPRETIVE STATEMENTS: Normal sinus rhythm Normal ECG Compared to ECG 08/30/2020 13:44:17 No significant changes Electronically Signed On 09-16-20 06:09:09 OXIDATION ENGINEER by Tavo Silverman
== END 2020-09-15 01:52 | disposition home or self-care (01) ==
LOC: ER 22:47
DX: J45.909 Unspecified asthma, uncomplicated (principal); F17.210 Nicotine dependence, cigarettes, uncomplicated; Z88.5 Allergy status to narcotic agent
CPT/HCPCS: 36415; 71045; 80048; 80076; 81003; 81025; 83735; 83880; 84484; 85025; 85610; 93005; 96374; 96375; 99284; J2930

== ENCOUNTER 2020-12-07 03:42 | Emergency (ER) | payer SELFPAY ==
[2012-03-13 01:36] VITALS: BP 105/67
--- OUTSIDE RECORDS SUMMARY | 2020-12-07 03:45 | XMS REPORT | Continuity of Care Document ---
:1980 Author Organization [facility] t Address [address] [place] [address] Care Team Providers Name Role Phone Frank VIOLET Attending Clinician Payers Payer Name Policy Type Policy Number Effective Date Expiration Date S ource Problems This patient has no known problems. Allergies, Adverse Reactions, Alerts Allergy Allergy Status Severity Reaction(s) Onset Inactive Treating Comm ents Source Name Type Date Date Clinician No Known DA Active U [facility] Allergie 04-11 [facility] s 00:00: d 00 [facility] Medications This patient has no known medications. Procedures This patient has no known procedures. Encounters Start End Encounter Admission Attending Care Care Encounter Source Date/Time Date/Time Type Type Clinicians Facility Department ID 2020-11-25 2020-11-25 Emergency Frank [facility] [id number] 15:17:00 17:55:00 Huang Grace [id number] [place] [id number] [place] [id number] Results Test Description Test Time Test Comments Results Result [facility] e Comments - CT ABD PELVIS 2020-04-11 FAX: N W/CONT 20:28:00 Ebonie Parry MD [place]: St: REG Name: RENEE PARRISH [facility] : 1980 Age/S: 40/F [address] Unit: [id number] Loc: [address] Phys: [place] [id number] Acct: [id number] Dis Date: Status: REG ER PHONE #: [phone] Exam Date: 04/11/20202012 FAX #: [phone] Reason: PAIN EXAMS: CPT CODE: [id number] CT ABD PELVIS W/CONT 19339 LOCATION: T18 EXAM: CT ABDOMEN AND PELVIS [...] (2027) [email or web address] Orig Print D/T: S: 04/11/2020 (2 PAGE 1 Signed Report COMPREHENSIVE METABOLIC PANEL [...] = ALKP) 90 Units/L 50.0-136 .0 N [id number] 18:37:00 Test Item Value Reference Range Interpretation Comments LIPASE (test code = LIP) 140 Units/L 65.0-230.0 N [id number] 18:37:00 Test Item Value Reference Range Interpretation Comments ALCOHOL (test code 0.00 gm/dL 0.00-0.00 N ETHYL ALC OHOL VALUES - = ALC) INTERPRETATION: 0.050 GM/DL - NOT INT OXICATED 0.100 GM/DL - INTOXICATED 0.3 50-0.450 GM/DL - SEVEREL Y INTOXICATED 0.5 50 GM/DL- FATAL INTOXICAT ION DRUGS OF ABUSE SCREEN [id number] 18:33:00 Test Item Value Reference Range Interpretation [...] (test NEGATIVE NEGATIVE code = [place]) URINALYSIS [id number] 18:32:00 Test Item Value Reference Range Interpretation [...] code = TRACE NONE BACU) UR HCG [id number] 18:32:00 Test Item Value Reference Range Interpretation Comments UR HCG QUAL (test code = HCGQLU) NEGATIVE NEGATIVE URINALYSIS [id number] 18:31:00 Test Item Value Reference Range Interpretation [...] (test code = NONE BACU) UR HCG [id number] 18:31:00 Test Item Value Reference Range Interpretation Comments UR HCG QUAL (test code = HCGQLU) NEGATIVE COMPREHENSIVE METABOLIC [id number] 18:27:00 Test Item Value Reference Range Interpretation [...] TOTAL (test Units/L 50.0-136.0 code = ALKP) [id number] 18:27:00 Test Item Value Reference Range Interpretation Comments LIPASE (test code = LIP) Units/L 65.0-230.0 [id number] 18:27:00 Test Item Value Reference Range Interpretation Comments ALCOHOL (test code = ALC) gm/dL 0.00-0.00 CBC W/AUTO [id number] 18:16:00 Test Item Value Reference Range Interpretation [...]
[2020-12-07] MEDS ORDERED: KETOROLAC 30 MG/ML INJ ONE (04:14)
[2020-12-07] MEDS ORDERED: HYDROCODONE/APAP 5/325 MG TAB ONE (04:19)
--- NOTE | 2020-12-07 05:26 | EDPHYS ---
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 03:58 Details of fall: The patient fell from an upright position, while walking. Onset: The tw4 symptoms/episode began/occurred today. Associated injuries: The patient sustained anterior aspect of right shoulder, right upper thigh and right quadriceps. Severity of symptoms: At their worst the symptoms were moderate, in the emergency department the symptoms are unchanged. The patient has not experienced similar symptoms in the past. 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 - Social history:: Smoking status: Patient reports the use of cigarette tobacco products, smokes one-half pack cigarettes per day. ROS: 03:58 Constitutional: Negative for fever, chills, and weight loss, Eyes: Negative for injury, tw4 pain, redness, and discharge, Cardiovascular: Negative for chest pain, palpitations, and edema, Respiratory: Negative for shortness of breath, cough, wheezing, and pleuritic chest pain, Abdomen/GI: Negative for abdominal pain, nausea, vomiting, diarrhea, and constipation, Back: Negative for injury and pain. 03:58 MS/extremity: Positive for injury or acute deformity, pain, tenderness. Exam: 03:58 Constitutional: This is a well developed, well nourished patient who is awake, alert, tw4 and in no acute distress. Head/Face: Normocephalic, atraumatic. Chest/axilla: Normal chest wall appearance and motion. Nontender with no deformity. No lesions are appreciated. Cardiovascular: Regular rate and rhythm with a normal S1 and S2. No gallops, murmurs, or rubs. Normal PMI, no JVD. No pulse deficits. Respiratory: Lungs have equal breath sounds bilaterally, clear to auscultation and percussion. No rales, rhonchi or wheezes noted. No increased work of breathing, no retractions or nasal flaring. Abdomen/GI: Soft, non-tender, with normal bowel sounds. No distension or tympany. No guarding or rebound. No evidence of tenderness throughout. Back: No spinal tenderness. No costovertebral tenderness. Full range of motion. Neuro: Awake and alert, GCS 15, oriented to person, place, time, and situation. Cranial nerves II-XII grossly intact. Motor strength 5/5 in all extremities. Sensory grossly intact. Cerebellar exam normal. Normal gait. 03:58 Musculoskeletal/extremity: Extremities: noted in the anterior aspect of right shoulder: decreased ROM, pain, tenderness, There is no evidence of abrasion, contusion, deformity, ecchymosis, erythema, laceration, rash, swelling, noted in the right hip: decreased ROM, pain, no evidence of abrasion, contusion, deformity, ecchymosis, erythema, laceration, puncture, rash. Vital Signs: 03:45 BP 122 / 84; Pulse 95; Resp 18; Temp 98; Pulse Ox 95% on R/A; Pain 10/10; fu 03:54 BP 136 / 79; Pulse 97; Resp 18; Temp 98; Pulse Ox 96% ; Weight 83.91 kg; Height 5 ft. 7 fu in. (170.18 cm); Pain 10/10; 05:39 BP 121 / 75; Pulse 90; Resp 17; Pulse Ox 98% ; rr5 03:54 Body Mass Index 28.97 (83.91 kg, 170.18 cm) fu MDM: 03:54 Patient medically screened. 12/07 03:54 Order name: Shoulder Right (2 View) XRAY 12/07 03:54 Order name: Hip Right 2 View XRAY Administered Medications: 04:09 Not Given (Other Intervention Used): TORadol 60 mg IM once rr5 04:10 Drug: [place] (HYDROcodone-acetaminophen) 5 mg-325 mg 1 tabs {Note: rass 0.} Route: PO; rr5 05:10 Follow up: Response: No adverse reaction; Pain is decreased; RASS: Alert and Calm (0) rr5 Disposition: 12/07/20 05:25 Discharged to Home. Impression: Contusion of right hip, Contusion of right shoulder. - Condition is Stable. - Discharge Instructions: Contusion, Shoulder Pain, Elbow Contusion. - Prescriptions for Ibuprofen 800 mg Oral Tablet - take 1 tablet by ORAL route every 12 hours As needed take with food; 20 tablet. Tramadol 50 mg Oral Tablet - take 1 tablet by ORAL route every 8 hours as needed; 12 tablet. - Work release form, Medication Reconciliation Form, Thank You Letter, Antibiotic Education, Prescription Opioid Use form. - Follow up: Private Physician; When: Upon discharge from the Emergency Department; Reason: Recheck today's complaints, Continuance of care, Re-evaluation by your physician. - Problem is new. - Symptoms have improved. Signatures: Dispatcher [employer] EDMS David Mercado RN RN fu Wadley, Terrence, MD MD tw4 Brando Sheikh RN RN rr5 Corrections: (The following items were deleted from the chart) 05:40 05:25 12/07/2020 05:25 Discharged to Home. Impression: Contusion of right hip; rr5 Contusion of right shoulder. Condition is Stable. Forms are Medication Reconciliation Form, Thank You Letter, Antibiotic Education, Prescription Opioid Use. Follow up: Private Physician; When: Upon discharge from the Emergency Department; Reason: Recheck today's complaints, Continuance of care, Re-evaluation by your physician. Problem is new. Symptoms have improved. tw4
--- NOTE | 2020-12-07 05:26 | ER ---
Nurse's Notes [facility] Name: Susana Tamayo Age: 40 yrs Sex: Female : 1980 Arrival Date: 12/07/2020 Time: 03:53 Bed 20 Private MD: Diagnosis: Contusion of right hip;Contusion of right shoulder Presentation: 12/07 03:54 Chief complaint: Patient states: She fell on her right side at work around 0100 this fu morning. Complaining of pain on the right shoulder, right neck, lower back, right hip and right leg. Coronavirus screen: Client denies travel out of the [place] in the last 14 days. At this time, the client does not indicate any symptoms associated with coronavirus-19. Ebola Screen: No symptoms or risks identified at this time. Initial Sepsis Screen: Does the patient meet any 2 criteria? No. Patient's initial sepsis screen is negative. Does the patient have a suspected source of infection? No. Patient's initial sepsis screen is negative. Risk Assessment: Do you want to hurt yourself or someone else? Patient reports no desire to harm self or others. Onset of symptoms was December 08, 2019. 03:54 Method Of Arrival: EMS: [facility] fu 03:54 Acuity: DIMPLE 3 fu Triage Assessment: 04:02 General: Appears uncomfortable, Behavior is calm, cooperative, appropriate for age. fu Pain: Complains of pain in right neck, right shoulder, lower back, right leg Pain currently is 10 out of 10 on a pain scale. Pain began 3 hours ago. 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 - Social history:: Smoking status: Patient reports the use of cigarette tobacco products, smokes one-half pack cigarettes per day. Screenin:03 Abuse screen: Denies threats or abuse. Nutritional screening: No deficits noted. fu Tuberculosis screening: No symptoms or risk factors identified. Fall Risk None identified. Assessment: 04:05 General: Appears uncomfortable, Behavior is calm, cooperative, appropriate for age, fu Denies fever, feeling ill, fatigue, chills. Pain: Complains of pain in right neck, right shoulder, lower back, right hip and right leg Pain currently is 10 out of 10 on a pain scale. Quality of pain is described as crampy, Pain began 3 hours ago. Aggravated by movement. Neuro: Level of Consciousness is awake, alert, obeys commands, Oriented to person, place, time, situation, Flavor Tank Tender are equal bilaterally Moves all extremities. Speech is normal, Facial symmetry appears normal. Cardiovascular: Denies chest pain, nausea, vomiting. Respiratory: Respiratory effort is even, unlabored, Respiratory pattern is regular. GI: Patient currently denies abdominal pain, diarrhea, nausea, vomiting. Derm: Bruising that is on right arm from previous hospital visit. Musculoskeletal: Reports pain in right neck, right shoulder, lower back, right hip and right leg. 05:34 Reassessment: Patient appears in no apparent distress at this time. Patient is alert, rr5 oriented x 3, equal unlabored respirations, skin warm/dry/pink. discharge instruction given and explained without complaints made Patient states symptoms have improved. Vital Signs: 03:45 BP 122 / 84; Pulse 95; Resp 18; Temp 98; Pulse Ox 95% on R/A; Pain 10/10; fu 03:54 BP 136 / 79; Pulse 97; Resp 18; Temp 98; Pulse Ox 96% ; Weight 83.91 kg; Height 5 ft. 7 fu in. (170.18 cm); Pain 10/10; 05:39 BP 121 / 75; Pulse 90; Resp 17; Pulse Ox 98% ; rr5 03:54 Body Mass Index 28.97 (83.91 kg, 170.18 cm) fu ED Course: 03:53 Patient arrived in ED. la1 03:53 David Mercado, IBETH is Primary Nurse. fu 03:53 Mario Garcia MD is Attending Physician. tw4 03:54 Arm band placed on right wrist. rr5 03:59 Triage completed. fu 04:04 Patient has correct armband on for positive identification. Bed in low position. Call fu light in reach. Side rails up X 1. Pulse ox on. NIBP on. Warm blanket given. 05:39 No provider procedures requiring assistance completed. Patient did not have IV access rr5 during this emergency room visit. 07:15 Shoulder Right (2 View) XRAY In Process Unspecified. EDMS 07:15 Hip Right 2 View XRAY In Process Unspecified. EDMS Administered Medications: 04:09 Not Given (Other Intervention Used): TORadol 60 mg IM once rr5 04:10 Drug: [place] (HYDROcodone-acetaminophen) 5 mg-325 mg 1 tabs {Note: rass 0.} Route: PO; rr5 05:10 Follow up: Response: No adverse reaction; Pain is decreased; RASS: Alert and Calm (0) rr5 Outcome: 05:25 Discharge ordered by . tw4 05:39 Discharged to home via wheelchair. rr5 05:39 Condition: stable 05:39 Discharge instructions given to patient, Instructed on discharge instructions, follow up and referral plans. medication usage, Demonstrated understanding of instructions, follow-up care, medications, Prescriptions given X 2. 05:40 Patient left the ED. 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 Complaining of pain on the right shoulder, right neck, lower back and right leg. fu
--- NOTE | 2020-12-07 08:29 | RAD REPORT ---
EXAM DESCRIPTION: Shoulder Right 2 View - 12/07/2020 7:15 am CLINICAL HISTORY: FALL;Pain COMPARISON: No comparisons TECHNIQUE: Internal and external rotation views of the right shoulder were obtained. FINDINGS: There is no fracture or dislocation. AC joint is normal in appearance. No acute or suspic ious findings. IMPRESSION: Negative two-view right shoulder examination.
--- NOTE | 2020-12-07 08:31 | RAD REPORT ---
EXAM DESCRIPTION: RAD - Hip Right 2 View - 12/07/2020 7:15 am CLINICAL HISTORY: FALL;Pain COMPARISON: Hip Right 2 View dated 11/11/2019 FINDINGS: AP and frog-leg views of the right hip were obtained. There is no fracture or dislocation. No AVN or focal head abnormality. No acute or destructive bony p rocess seen. IMPRESSION: Negative right hip examination for acute or significant findings.
== END 2020-12-07 05:40 | disposition home or self-care (01) ==
LOC: ER 03:42
DX: S70.01XA Contusion of right hip, initial encounter (principal); S40.011A Contusion of right shoulder, initial encounter; F17.210 Nicotine dependence, cigarettes, uncomplicated; W19.XXXA Unspecified fall, initial encounter; F41.9 Anxiety disorder, unspecified; F32.9 Major depressive disorder, single episode, unspecified; K21.9 Gastro-esophageal reflux disease without esophagitis
CPT/HCPCS: 99284

== ENCOUNTER 2021-01-09 17:23 | Emergency (ER) | payer SELFPAY ==
--- OUTSIDE RECORDS SUMMARY | 2021-01-09 17:26 | XMS REPORT | Continuity of Care Document ---
:1980 Author Organization [facility] t Address [address] [place] [address] Care Team Providers Name Role Phone Thomas Harris Attending Clinician Frank LAZO Attending Clinician Payers Payer Name Policy Type Policy Number Effective Date Expiration Date S ource Problems This patient has no known problems. Allergies, Adverse Reactions, Alerts Allergy Allergy Status Severity Reaction(s) Onset Inactive Treating Comm ents Source Name Type Date Date Clinician No Known DA Active U 2019-0 [facility] Allergie 04-11 [facility] s 00:00: d 00 [facility] Medications This patient has no known medications. Procedures This patient has no known procedures. Encounters Start End Encounter Admission Attending Care Care Encounter Source Date/Time Date/Time Type Type Clinicians Facility Department ID 2020-12-28 2020-12-28 Emergency AARON Emerson [id number] 17:44:00 21:05:00 Jack Grace [id number] [place] [id number] [place] [id number] 2020-11-25 2020-11-25 Emergency AARON Marie [id number] 15:17:00 17:55:00 Cynise [place] [id number] [place] [id number] [place] [id number] Results Test Description Test Time Test Comments Results Result [facility] e Comments - CT ABD PELVIS 2020-04-11 FAX: N W/CONT 20:28:00 Ebonie Parry MD [place]: St: REG Name: RENEE PARRISH [facility] : 1980 Age/S: 40/F [address] [facility] Unit: [id number] Loc: [address] Phys: [place] [id number] Acct: [id number] Dis Date: Status: REG ER PHONE #: [phone] Exam Date: 04/11/20202012 FAX #: [phone] Reason: PAIN EXAMS: CPT CODE: [id number] CT ABD PELVIS W/CONT 09991 LOCATION: T18 EXAM: CT ABDOMEN AND PELVIS [...] Technologist: RAH GEE Trnscrd Dt/Tm: 04/11/2020 (2027) [email or web address] Orig Print D/T: S: 04/11/2020 (2031 PAGE [...] = ALKP) 90 Units/L 50.0-136 .0 N [id number] 18:37:00 Test Item Value Reference Range Interpretation Comments LIPASE (test code = LIP) 140 Units/L 65.0-230.0 N [id number] 18:37:00 Test Item Value Reference Range Interpretation Comments ALCOHOL (test code 0.00 gm/dL 0.00-0.00 N ETHYL ALC OHOL VALUES - = ALC) INTERPRETATION: 0.050 GM/DL - NOT INT OXICATED 0.100 GM/DL - INTOXICATED 0.3 50-0.450 GM/DL - SEVEREL Y INTOXICATED 0.5 50 GM/DL- FATAL INTOXICAT ION DRUGS OF ABUSE SCREEN [id number] 18:33:00 Test Item Value Reference Range Interpretation [...] (test NEGATIVE NEGATIVE code = [place]) URINALYSIS [id number] 18:32:00 Test Item Value Reference Range Interpretation [...] code = TRACE NONE BACU) UR HCG [id number] 18:32:00 Test Item Value Reference Range Interpretation Comments UR HCG QUAL (test code = HCGQLU) NEGATIVE NEGATIVE URINALYSIS [id number] 18:31:00 Test Item Value Reference Range Interpretation [...] (test code = NONE BACU) UR HCG [id number] 18:31:00 Test Item Value Reference Range Interpretation Comments UR HCG QUAL (test code = HCGQLU) NEGATIVE COMPREHENSIVE METABOLIC [id number] 18:27:00 Test Item Value Reference Range Interpretation [...] TOTAL (test Units/L 50.0-136.0 code = ALKP) [id number] 18:27:00 Test Item Value Reference Range Interpretation Comments LIPASE (test code = LIP) Units/L 65.0-230.0 [id number] 18:27:00 Test Item Value Reference Range Interpretation Comments ALCOHOL (test code = ALC) gm/dL 0.00-0.00 CBC W/AUTO [id number] 18:16:00 Test Item Value Reference Range Interpretation [...]
[2021-01-09 20:28] LABS: Urine Blood Negative (Negative); Urine Glucose Negative (Negative); Urine Protein Negative (Negative); Urine pH 6.5 (5.0-7.0)
[2021-01-09 20:44] LABS: Barbiturates NEGATIVE (NEGATIVE); Benzodiazepines NEGATIVE (NEGATIVE); Cocaine NEGATIVE (NEGATIVE); METHAMPHETAM NEGATIVE (NEGATIVE); Methadone NEGATIVE (NEGATIVE); Opiates NEGATIVE (NEGATIVE); Phencyclidine NEGATIVE (NEGATIVE); THC Cannibis NEGATIVE (NEGATIVE)
[2021-01-09 20:51] LABS: Absolute Lymphocytes (CBC) 1.9 K/uL (0.7-4.9); Basophils % 0.2 % (0-1.3); Hematocrit 40.4 % (36.0-45.0); Lymphocytes % 21.2 % (15.3-44.8); MPV 7.3 fL (7.6-11.3); RBC Red Blood Cell Count 4.27 M/uL (3.86-4.86)
[2021-01-09 21:04] LABS: Protime INR 0.99
[2021-01-09 21:28] LABS: ALT/SGPT 15 U/L (12-78); AST/SGOT 7 U/L (15-37); Albumin 3.5 g/dL (3.4-5.0); Alkaline Phosphatase 89 U/L (45-117); BUN Blood Urea Nitrogen 6 mg/dL (7-18); Bicarbonate 24 mmol/L (21-32); Bilirubin Direct < 0.1 mg/dL (0-0.2); Bilirubin Total 0.4 mg/dL (0.2-1.0); Glucose Level 122 mg/dL (74-106); Potassium 3.4 mmol/L (3.5-5.1); Protein, Total 7.3 g/dL (6.4-8.2); Sodium Level 142 mmol/L (136-145)
--- NOTE | 2021-01-09 22:37 | EDPHYS ---
Physician Documentation [facility] Name: Susana Tamayo Age: 40 yrs Sex: Female : 1980 Arrival Date: 01/09/2021 Time: 17:24 Bed 20 Private MD: ED Physician Piero Velasquez HPI: 01/09 21:00 This 40 yrs old Female presents to ER via Ambulatory with complaints of kb Suicidal Ideation. 21:00 The patient presents to the emergency department with suicide ideation, and the patient kb has a plan, to overdose with medications. Onset: The symptoms/episode began/occurred today. Associated signs and symptoms: Pertinent positives; suicide ideation. Severity of symptoms: At their worst the symptoms were moderate in the emergency department the symptoms are unchanged. The patient has not experienced similar symptoms in the past. The patient has not recently seen a physician. 22:37 Pt reports she started having suicidal ideations while fighting with boyfriend today. . 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 - Social history:: Smoking status: Patient reports the use of cigarette tobacco products, smokes one-half pack cigarettes per day, smokes one pack cigarettes per day. Patient/guardian denies using alcohol, IV drugs. ROS: 20:59 Constitutional: Negative for fever, chills, and weight loss, ENT: Negative for injury, kb pain, and discharge, Cardiovascular: Negative for chest pain, palpitations, and edema, Respiratory: Negative for shortness of breath, cough, wheezing, and pleuritic chest pain, Abdomen/GI: Negative for abdominal pain, nausea, vomiting, diarrhea, and constipation, : Negative for injury, bleeding, discharge, and swelling, MS/Extremity: Negative for injury and deformity, Skin: Negative for injury, rash, and discoloration, Neuro: Negative for headache, weakness, numbness, tingling, and seizure. 20:59 Psych: Positive for suicidal ideation. Exam: 20:58 Constitutional: This is a well developed, well nourished patient who is awake, alert, kb and in no acute distress. Head/Face: Normocephalic, atraumatic. ENT: Moist Mucous membranes Chest/axilla: Normal chest wall appearance and motion. Cardiovascular: Regular rate and rhythm with a normal S1 and S2. No gallops, murmurs, or rubs. No pulse deficits. Respiratory: Respirations even and unlabored. No increased work of breathing, no retractions or nasal flaring. Abdomen/GI: Soft, non-tender. No distention Skin: Warm, dry with normal turgor. Normal color. MS/ Extremity: Pulses equal, no cyanosis. Neurovascular intact. Full, normal range of motion. Neuro: Awake and alert, GCS 15, oriented to person, place, time, and situation. Moves all extremities. Normal gait. 20:58 ECG was reviewed by the Attending Physician. 20:58 Psych: Behavior/mood is pleasant, cooperative, Affect is calm, Oriented to person, place, time, Patient having thoughts of suicide. Plan for suicide is overdose Vital Signs: 18:01 BP 131 / 86; Pulse 94; Resp 17 S; Temp 98.1(TE); Pulse Ox 98% on R/A; Weight 89.81 kg; jl7 Height 5 ft. 7 in. (170.18 cm) (R); 18:01 Body Mass Index 31.01 (89.81 kg, 170.18 cm) jl7 MDM: 18:29 Patient medically screened. kb 18:30 Patient medically screened. kb 20:59 Data reviewed: vital signs, nurses notes, lab test result(s), EKG. Data interpreted: Pulse oximetry: on room air is 98 %. Interpretation: normal. 21:57 ED course: Pt reports she has a family member that could pick her up and she could stay with. States it would be good for her to get out of town and he lives in [place]. Requests that she is discharged to do that. States she will not harm herself. Awaiting screening by [facility]. . 22:34 Counseling: I had a detailed discussion with the patient and/or guardian regarding: the historical points, exam findings, and any diagnostic results supporting the discharge/admit diagnosis, lab results, the need for outpatient follow up, a psychiatrist, to return to the emergency department if symptoms worsen or persist or if there are any questions or concerns that arise at home. ED course: Alfonzo Gerber screener recommended outpatient treatment. Pt will be seen at [facility] on Monday.. 01/09 18:30 Order name: Acetaminophen kb 01/09 18:30 Order name: Basic Metabolic Panel kb 01/09 18:30 Order name: CBC with Diff kb 01/09 18:30 Order name: ETOH Level; Complete Time: 21:32 kb 01/09 18:30 Order name: Hepatic Function; Complete Time: 21:32 kb 01/09 18:30 Order name: PT-INR; Complete Time: 21:32 kb 01/09 18:30 Order name: Ptt, Activated; Complete Time: 21:32 kb 01/09 18:30 Order name: Salicylate; Complete Time: 21:32 kb 01/09 18:30 Order name: Urine Drug Screen; Complete Time: 20:56 kb 01/09 18:30 Order name: Acetaminophen Level; Complete Time: 21:32 EDMS 01/09 18:30 Order name: Basic Metabolic Panel; Complete Time: 21:32 EDMS 01/09 18:30 Order name: CBC with Automated Diff; Complete Time: 21:01 EDMS 01/09 20:28 Order name: Urine Dipstick-Ancillary; Complete Time: 20:56 EDMS 01/09 18:30 Order name: Urine Test (obtain specimen); Complete Time: 20:22 kb 01/09 18:30 Order name: Suicide Precautions; Complete Time: 20:22 kb 01/09 18:30 Order name: EKG; Complete Time: 18:30 kb 01/09 18:30 Order name: EKG - Nurse/Tech; Complete Time: 20:44 kb 01/09 18:30 Order name: IV Saline Lock; Complete Time: 20:44 kb 01/09 18:30 Order name: Labs collected and sent; Complete Time: 20:44 kb 01/09 18:30 Order name: Suicide Screening ([place]); Complete Time: 20:22 kb 01/09 18:30 Order name: Urine Dipstick-Ancillary (obtain specimen); Complete Time: 20:22 kb 01/09 20:29 Order name: Urine --Ancillary (enter results); Complete Time: 20:56 mw2 01/09 21:03 Order name: SARS-COV-2 RT PCR; Complete Time: 21:32 EDMS EC:58 Rate is 84 beats/min. Rhythm is regular. QRS Roland is Normal. [place] interval is normal at kb 136 msec. QRS interval is normal at 84 msec. QT interval is normal at 368 msec. Administered Medications: No medications were administered Disposition: 01/09/21 22:37 Discharged to Home. Impression: Acute stress reaction. - Condition is Stable. - Discharge Instructions: Suicidal Feelings: How to Help Yourself, Stress and Stress Management. - Work release form, Medication Reconciliation Form, Thank You Letter, Antibiotic Education, Prescription Opioid Use form. - Follow up: Emergency Department; When: As needed; Reason: Worsening of condition. Follow up: Private Physician; When: 2 - 3 days; Reason: Recheck today's complaints, Continuance of care, Re-evaluation by your physician. Addendum: 01/11/2021 09:55 Co-signature as Attending Physician, Piero Velasquez MD I agree with the assessment and c kolb plan of care. Signatures: Dispatcher [employer] [facility] Essence Gagnon, VARNISHER-C VARNISHER-Ckb Piero Velasquez MD MD cha Bryson, James, RN RN jb4 Alisson Issa RN RN jl7 Corrections: (The following items were deleted from the chart) 01/09 20:21 18:39 CORONAVIRUS+ ordered. [facility] 23:02 22:37 01/09/2021 22:37 Discharged to Home. Impression: Acute stress reaction. Condition jb4 is Stable. Forms are Medication Reconciliation Form, Thank You Letter, Antibiotic Education, Prescription Opioid Use. Follow up: Emergency Department; When: As needed; Reason: Worsening of condition. Follow up: Private Physician; When: 2 - 3 days; Reason: Recheck today's complaints, Continuance of care, Re-evaluation by your physician. kb
--- NOTE | 2021-01-09 22:37 | ER ---
Nurse's Notes [facility] Name: Susana Tamayo Age: 40 yrs Sex: Female : 1980 Arrival Date: 01/09/2021 Time: 17:24 Bed 20 Private MD: Diagnosis: Acute stress reaction Presentation: 01/09 18:01 Chief complaint: Patient states: Started having suicidal thoughts while fighting with 7 boyfriend this afternoon, called [facility] and asked for help and the said the almeida to the nearest ED. Coronavirus screen: Client denies travel out of the [place] in the last 14 days. At this time, the client does not indicate any symptoms associated with coronavirus-19. Ebola Screen: No symptoms or risks identified at this time. Initial Sepsis Screen: Does the patient meet any 2 criteria? No. Patient's initial sepsis screen is negative. Does the patient have a suspected source of infection? No. Patient's initial sepsis screen is negative. Risk Assessment: Do you want to hurt yourself or someone else? Patient reports desire/thoughts of hurting themselves or someone else. Provider notified. Onset of symptoms was January 09, 2021. Care prior to arrival: None. 18:01 Method Of Arrival: Ambulatory [facility] 18:01 Acuity: DIMPLE 2 jl7 Triage Assessment: 18:05 General: Appears in no apparent distress. uncomfortable, well groomed, well developed, jl7 well nourished, Behavior is cooperative, crying. Pain: Denies pain. Neuro: Level of Consciousness is awake, alert, obeys commands, Oriented to person, place, time, situation. Cardiovascular: Patient's skin is warm and dry. Respiratory: Airway is patent Respiratory effort is even, unlabored, Respiratory pattern is regular, symmetrical. Derm: Skin is pink, warm \\T\\ dry. 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 - Social history:: Smoking status: Patient reports the use of cigarette tobacco products, smokes one-half pack cigarettes per day, smokes one pack cigarettes per day. Patient/guardian denies using alcohol, IV drugs. Screenin:00 Abuse screen: Denies threats or abuse. Nutritional screening: No deficits noted. jb4 Tuberculosis screening: No symptoms or risk factors identified. Fall Risk None identified. Assessment: 19:00 General: Appears in no apparent distress. comfortable, Behavior is calm, cooperative. jb4 Pain: Denies pain. Neuro: Level of Consciousness is awake, alert, obeys commands, Oriented to person, place, time, situation. Cardiovascular: Patient's skin is warm and dry. Respiratory: Airway is patent Respiratory effort is even, unlabored, Respiratory pattern is regular, symmetrical. GI: No signs and/or symptoms were reported involving the gastrointestinal system. : No signs and/or symptoms were reported regarding the genitourinary system. EENT: No signs and/or symptoms were reported regarding the EENT system. Derm: Skin is intact, Skin is pink, warm \\T\\ dry. Musculoskeletal: Circulation, motion, and sensation intact. Range of motion: intact in all extremities. 22:00 Reassessment: Patient appears in no apparent distress at this time. Patient and/or jb4 family updated on plan of care and expected duration. Pain level reassessed. Patient is alert, oriented x 3, equal unlabored respirations, skin warm/dry/pink. 22:59 Reassessment: Patient appears in no apparent distress at this time. Patient and/or jb4 family updated on plan of care and expected duration. Pain level reassessed. Patient is alert, oriented x 3, equal unlabored respirations, skin warm/dry/pink. Pt verbalized understanding of d/c and follow up instructions. Ambulated out of ED with steady gait. Psych: 18:07 [facility] Suicide Severity Screening: In the past month, have you wished you were jl7 or wished you could go to sleep and not wake up? Patient responds "yes." Based off the client's responses additional C-SSRS screening is required. "In the past month, have you actually had any thoughts of killing yourself?" Patient responds "yes." Based off the client's response additional [facility] suicide severity screening questions to be further documented on paper forms. "In your lifetime, have you ever done anything, started to do anything, or prepared to do anything to end your life?" Patient responds "no.". Subjective: Patient's mood is sad, hopeless, Delusions are denied, Hallucinations are denied Having thoughts of suicide. Plan for suicide is "Take a bunch of pills.". Objective: Patient is cooperative, Speech is normal, Affect is appropriate. Pt denies substance abuse. Commitment: Patient will be a voluntary commitment. Vital Signs: 18:01 BP 131 / 86; Pulse 94; Resp 17 S; Temp 98.1(TE); Pulse Ox 98% on R/A; Weight 89.81 kg; jl7 Height 5 ft. 7 in. (170.18 cm) (R); 18:01 Body Mass Index 31.01 (89.81 kg, 170.18 cm) jl7 ED Course: 17:24 Patient arrived in ED. ds1 18:04 Triage completed. jl7 18:05 Arm band placed on right wrist. jl7 18:29 Essence Gagnon FNP-C is PHCP. kb 18:29 Piero Velasquez MD is Attending Physician. kb 18:29 Sanjay Day, RN is Primary Nurse. bp 19:00 Patient has correct armband on for positive identification. Bed in low position. Call jb4 light in reach. Side rails up X 1. 19:44 Primary Nurse role handed off by Sanjay Day, RN mw2 20:22 Brijesh Brooks, RN is Primary Nurse. jb4 21:[address] [facility] Crisis Line spoke to Rachid to have a screener evaluate patient. mw2 22:10 patient talking with Maria Del Carmen from [facility]. mw2 22:59 No provider procedures requiring assistance completed. IV discontinued, intact, jb4 bleeding controlled, No redness/swelling at site. Pressure dressing applied. Administered Medications: No medications were administered Outcome: 22:37 Discharge ordered by . kb 22:59 Discharged to home ambulatory. jb4 22:59 Condition: stable 22:59 Discharge instructions given to patient, Instructed on discharge instructions, follow up and referral plans. Demonstrated understanding of instructions, follow-up care. 23:02 Patient left the ED. jb4 Signatures: Essence Gagnon FNP-C FNP-Zehra Murrieta ds1 Brijesh Brooks, RN RN jb4 Alisson Issa, RN RN jl7 Sanjay Day RN RN bp Alejandro, Rudolph 2
[2021-01-10 03:23] VITALS: BP 131/86; TEMP 98.1; O2SAT 98
--- NOTE | 2021-01-10 12:12 | EKG ---
Test Date: 2021-01-09 Test Time: 20:36:13 Records Management Engineer: ANGELLA MEASUREMENT RESULTS: Intervals: Rate: 84 CT: 136 QRSD: 84 QT: 368 QTc: 434 [place]: P: 74 CT: 136 QRS: 86 T: 61 INTERPRETIVE STATEMENTS: Normal sinus rhythm Normal ECG Compared to ECG 09/14/2020 23:45:29 No significant changes Electronically Signed On 01-10-21 12:11:46 CDT by Tavo Silverman
== END 2021-01-09 23:02 | disposition home or self-care (01) ==
LOC: ER 17:23
DX: R45.851 Suicidal ideations (principal); F43.0 Acute stress reaction; Z20.822 Contact with and (suspected) exposure to COVID-19; F17.210 Nicotine dependence, cigarettes, uncomplicated; J45.909 Unspecified asthma, uncomplicated; F32.9 Major depressive disorder, single episode, unspecified; K21.9 Gastro-esophageal reflux disease without esophagitis
CPT/HCPCS: 36415; 80048; 80076; 80307; 80320; 80329; 81003; 81025; 85025; 85610; 85730; 93005; 99284; U0003

== ENCOUNTER 2021-01-30 15:28 | Emergency (ER) | payer SELFPAY ==
--- OUTSIDE RECORDS SUMMARY | 2021-01-30 15:31 | XMS REPORT | Continuity of Care Document ---
:1980 Author Organization [facility] t Address [address] [place] [address] Care Team Providers Name Role Phone Thomas Harris Attending Clinician Frank LAZO Attending Clinician Payers Payer Name Policy Type Policy Number Effective Date Expiration Date S ource Problems This patient has no known problems. Allergies, Adverse Reactions, Alerts Allergy Allergy Status Severity Reaction(s) Onset Inactive Treating Comm ents Source Name Type Date Date Clinician No Known DA Active U LAINEY Allergie 04-11 [facility] s 00:00: d 00 [facility] Medications This patient has no known medications. Procedures This patient has no known procedures. Encounters Start End Encounter Admission Attending Care Care Encounter Source Date/Time Date/Time Type Type Clinicians Facility Department ID 2020-12-28 2020-12-28 [facility] [id number] 17:44:00 21:05:00 Jack Grace [id number] [place] [id number] [place] [id number] 2020-11-25 2020-11-25 Emergency Frank [facility] [id number] 15:17:00 17:55:00 Huang Grace [id number] [place] [id number] [place] [id number] Results Test Description Test Time Test Comments Results Result [facility] e Comments - CT ABD PELVIS 2020-04-11 FAX: N W/CONT 20:28:00 Ebonie Parry MD [place]: St: REG Name: RENEE PARRISH [facility] : 1980 Age/S: 40/F [address] [facility] Unit: [id number] Loc: E.ERS2 [place], [place] Phys: [place] [id number] Acct: [id number] Dis Date: Status: REG ER PHONE #: [phone] Exam Date: 04/11/20202012 FAX #: [phone] Reason: PAIN EXAMS: CPT CODE: [id number] CT ABD PELVIS W/CONT [id number] LOCATION: T18 EXAM: CT ABDOMEN AND PELVIS [...] = ALKP) 90 Units/L 50.0-136 .0 N [id number] 18:37:00 Test Item Value Reference Range Interpretation Comments LIPASE (test code = LIP) 140 Units/L 65.0-230.0 N [id number] 18:37:00 Test Item Value Reference Range Interpretation Comments ALCOHOL (test code 0.00 gm/dL 0.00-0.00 N ETHYL ALC OHOL VALUES - = ALC) INTERPRETATION: 0.050 GM/DL - NOT INT OXICATED 0.100 GM/DL - INTOXICATED 0.3 50-0.450 GM/DL - SEVEREL Y INTOXICATED 0.5 50 GM/DL- FATAL INTOXICAT ION DRUGS OF ABUSE SCREEN [id number] 18:33:00 Test Item Value Reference Range Interpretation [...] (test NEGATIVE NEGATIVE code = [place]) URINALYSIS [id number] 18:32:00 Test Item Value Reference Range Interpretation [...] code = TRACE NONE BACU) UR HCG [id number] 18:32:00 Test Item Value Reference Range Interpretation Comments UR HCG QUAL (test code = HCGQLU) NEGATIVE NEGATIVE URINALYSIS [id number] 18:31:00 Test Item Value Reference Range Interpretation [...] (test code = NONE BACU) UR HCG [id number] 18:31:00 Test Item Value Reference Range Interpretation Comments UR HCG QUAL (test code = HCGQLU) NEGATIVE COMPREHENSIVE METABOLIC [id number] 18:27:00 Test Item Value Reference Range Interpretation [...] TOTAL (test Units/L 50.0-136.0 code = ALKP) [id number] 18:27:00 Test Item Value Reference Range Interpretation Comments LIPASE (test code = LIP) Units/L 65.0-230.0 [id number] 18:27:00 Test Item Value Reference Range Interpretation Comments ALCOHOL (test code = ALC) gm/dL 0.00-0.00 CBC W/AUTO [id number] 18:16:00 Test Item Value Reference Range Interpretation [...]
[2021-01-30] MEDS ORDERED: DIPHENHYDRAMINE 50 MG/ML VIAL ONE (18:19)
[2021-01-30] MEDS ORDERED: METOCLOPRAMIDE 10 MG/2mL INJ ONE (18:19)
[2021-01-30] MEDS ORDERED: NA CHLORIDE 0.9% 1,000 ML ONE (18:19)
[2021-01-30] MEDS ORDERED: KETOROLAC 30 MG/ML INJ ONE (18:19)
[2021-01-30 18:26] LABS: Basophils % 0.5 % (0-1.3); Hematocrit 38.9 % (36.0-45.0); Lymphocytes % 23.8 % (15.3-44.8); MPV 7.2 fL (7.6-11.3)
--- NOTE | 2021-01-30 18:33 | RAD REPORT ---
EXAM DESCRIPTION: CT - Head Brain Wo Cont - 01/30/2021 6:13 pm CLINICAL HISTORY: Headache COMPARISON: 2019 TECHNIQUE: Computed axial tomography of the head was obtained. IV contrast was not requested. All CT scans are performed using dose optimization technique as appropriate and may include automated exposure control or mA/KV adjustment according to patient size. FINDINGS: An intracranial bleed is not seen . The ventricles are normal in caliber. No extra-axial fluid collection is noted. Fluid within the sinuses/ mastoids is not seen. IMPRESSION: No acute intracranial abnormality is seen. If patient's symptoms persist MRI of the bra in would be recommended.
[2021-01-30 18:37] LABS: ALT/SGPT 20 U/L (12-78); AST/SGOT 12 U/L (15-37); Albumin 3.3 g/dL (3.4-5.0); Alkaline Phosphatase 80 U/L (45-117); BUN Blood Urea Nitrogen 5 mg/dL (7-18); Bicarbonate 30 mmol/L (21-32); Bilirubin Direct 0.1 mg/dL (0-0.2); Bilirubin Total 0.4 mg/dL (0.2-1.0); Glucose Level 126 mg/dL (74-106); Lipase 135 U/L (73-393); Potassium 3.3 mmol/L (3.5-5.1); Protein, Total 6.8 g/dL (6.4-8.2); Sodium Level 142 mmol/L (136-145)
--- NOTE | 2021-01-30 18:43 | RAD REPORT ---
EXAM DESCRIPTION: CT - Abdomen Pelvis W Contrast - 01/30/2021 6:20 pm CLINICAL HISTORY: Abdominal pain COMPARISON: none. TECHNIQUE: Computed axial tomography of the abdomen pelvis was obtained. 100 cc [id number] was admin istered intravenously. Oral contrast was not requested which limits evaluation of bowel. All CT scans are performed using dose optimization technique as appropriate and may include automated exposure control or mA/KV adjustment according to patient size. FINDINGS: Mild fatty liver The spleen measures 13 centimeters. Pancreas, adrenal and kidneys appear unremarkable. There is no evidence of diverticulitis. Normal appendix IMPRESSION: Mild splenomegaly Mild fatty liver
--- NOTE | 2021-01-30 19:28 | EDPHYS ---
Physician Documentation [facility] Name: Susana Tamayo Age: 40 yrs Sex: Female : 1980 Arrival Date: 01/30/2021 Time: 15:31 Bed 14 Private MD: ED Physician Piero Velasquez HPI: 01/30 17:49 This 40 yrs old Female presents to ER via Ambulatory with complaints of pm1 Diarrhea, Headache. 17:49 The patient presents to the emergency department with diarrhea, headache. pm1 17:49 Onset: The symptoms/episode began/occurred 4 day(s) ago. Possible causes: Zoloft. The pm1 symptoms are aggravated by nothing. The symptoms are alleviated by nothing. 17:49 Associated signs and symptoms: Pertinent positives: abdominal pain, Pertinent pm1 negatives: fever, nausea, vomiting. The patient has not experienced similar symptoms in the past. The patient has been recently seen by a physician: with different complaint(s), started on zoloft for depression. 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 Flu vaccine is not up to date. - Social history:: Smoking status: Patient reports the use of cigarette tobacco products, smokes one-half pack cigarettes per day. ROS: 17:49 Constitutional: Negative for fever, chills, and weight loss, Eyes: Negative for injury, pm1 pain, redness, and discharge, ENT: Negative for injury, pain, and discharge, Neck: Negative for injury, pain, and swelling, Cardiovascular: Negative for chest pain, palpitations, and edema, Respiratory: Negative for shortness of breath, cough, wheezing, and pleuritic chest pain. 17:49 Back: Negative for injury and pain, MS/Extremity: Negative for injury and deformity, Skin: Negative for injury, rash, and discoloration. 17:49 Abdomen/GI: Positive for abdominal pain, diarrhea, Negative for nausea, vomiting. 17:49 Neuro: Positive for headache, Negative for numbness, tingling, weakness. Exam: 17:49 Constitutional: This is a well developed, well nourished patient who is awake, alert, pm1 and in no acute distress. Head/Face: Normocephalic, atraumatic. 17:49 Neck: Trachea midline, no thyromegaly or masses palpated, and no cervical lymphadenopathy. Supple, full range of motion without nuchal rigidity, or vertebral point tenderness. No Meningismus. 17:49 Back: No spinal tenderness. No costovertebral tenderness. Full range of motion. Skin: Warm, dry with normal turgor. Normal color with no rashes, no lesions, and no evidence of cellulitis. MS/ Extremity: Pulses equal, no cyanosis. Neurovascular intact. Full, normal range of motion. 17:49 Eyes: Exam is negative for acute changes, Extraocular movements: intact throughout, Conjunctiva: no acute changes, Sclera: no acute changes. 17:49 ENT: External ear(s): are unremarkable, Ear canal(s): are normal, TM's: are normal, Mouth: Lips: normal, Oral mucosa: normal, pink and intact, moist. 17:49 Cardiovascular: Rate: normal, Rhythm: regular, Pulses: no pulse deficits are appreciated. 17:49 Cardiovascular: Heart sounds: normal. 17:49 Respiratory: Exam negative for acute changes, respiratory distress, shortness of breath, Breath sounds: are clear throughout. 17:49 Abdomen/GI: Inspection: abdomen appears normal, Palpation: soft, in all quadrants, mild abdominal tenderness, in the right lower quadrant and left lower quadrant. 17:49 Neuro: Exam negative for acute changes, Orientation: is normal, Mentation: is normal, Motor: is normal, moves all fours. Vital Signs: 15:52 BP 104 / 86; Pulse 87; Resp 16 S; Temp 97.6(TE); Pulse Ox 96% on R/A; Weight 82.1 kg ca1 (R); Height 5 ft. 9 in. (175.26 cm) (M); Pain 8/10; 17:00 BP 107 / 78; Pulse 68; Resp 18; Pulse Ox 100% on R/A; zb 18:00 BP 119 / 53; Pulse 68; Resp 16; Pulse Ox 100% on R/A; zb 19:12 BP 111 / 77; Pulse 72; Resp 16; Pulse Ox 96% on R/A; zb 21:26 BP 109 / 70; Pulse 53; Resp 16; Pulse Ox 100% on R/A; zb 15:52 Body Mass Index 26.73 (82.10 kg, 175.26 cm) ca1 MDM: 17:15 Patient medically screened. ryann 17:49 ED course: Patient refused covid and flu swabs. pm1 19:26 Data reviewed: vital signs. Data interpreted: Pulse oximetry: on room air is 96 %. pm1 Interpretation: normal. Counseling: I had a detailed discussion with the patient and/or guardian regarding: the historical points, exam findings, and any diagnostic results supporting the discharge/admit diagnosis, lab results, radiology results, the need for outpatient follow up, to return to the emergency department if symptoms worsen or persist or if there are any questions or concerns that arise at home. 19:48 ED course: Patient would like to test for mono due to differential with splenomegaly. pm1 20:53 Counseling: I had a detailed discussion with the patient and/or guardian regarding: lab pm1 results. 21:30 ED course: Patient's headache /10 from 04/13. Unable to prescribe medications for pm1 headache due to drug interactions with current medications. Patient requesting prescription for nsaids. 01/30 17:49 Order name: Basic Metabolic Panel; Complete Time: 19:07 pm1 01/30 17:49 Order name: CBC with Diff; Complete Time: 19:07 pm1 01/30 17:49 Order name: CT Head Brain wo Cont; Complete Time: 19:07 pm01/30 17:49 Order name: Hepatic Function; Complete Time: 19:07 pm01/30 17:49 Order name: Lipase; Complete Time: 19:07 pm01/30 19:47 Order name: [place] Screen Profile; Complete Time: 20:53 pm1 01/30 17:49 Order name: IV Saline Lock; Complete Time: 18:09 pm01/30 17:49 Order name: Labs collected and sent; Complete Time: 18:09 pm01/30 17:49 Order name: CT Abd/Pelvis - IV Contrast Only; Complete Time: 19:07 pm1 Administered Medications: 18:08 Drug: TORadol (ketorolac) 30 mg Route: IVP; Site: right antecubital; zb 19:54 Follow up: Response: No adverse reaction; Marked relief of symptoms zb 18:08 Drug: Benadryl (diphenhydrAMINE) 25 mg Route: IVP; Site: right antecubital; zb 19:54 Follow up: Response: No adverse reaction; Marked relief of symptoms zb 18:31 Drug: NS 0.9% 1000 ml Route: IV; Rate: 1000 ml; Site: right antecubital; zb 19:58 Follow up: Response: No adverse reaction; IV Status: Completed infusion; IV Intake: zb 1000ml 18:32 Drug: Reglan (metoCLOPramide) 10 mg Route: IVP; Site: left antecubital; zb 19:54 Follow up: Response: No adverse reaction; Marked relief of symptoms zb 19:54 Follow up: Response: No adverse reaction; Marked relief of symptoms zb 20:05 Drug: morphine 4 mg {Note: RASS 0.} Route: IVP; Site: right antecubital; zb 21:26 Follow up: Response: No adverse reaction; Pain is decreased; RASS: Alert and Calm (0) zb Disposition: 01/30/21 20:53 Discharged to Home. Impression: Headache, Diarrhea, unspecified. - Condition is Stable. - Discharge Instructions: Diarrhea, Adult, General Headache Without Cause. - Prescriptions for Diclofenac Sodium 75 mg Oral Tablet, Delayed Release (E.C.) - take 1 tablet by ORAL route 2 times per day As needed; 30 tablet. - Medication Reconciliation Form, Thank You Letter, Antibiotic Education, Prescription Opioid Use, Work release form form. - Follow up: Emergency Department; When: As needed; Reason: Worsening of condition. Follow up: Private Physician; When: 2 - 3 days; Reason: Recheck today's complaints, Continuance of care, Re-evaluation by your physician. - Problem is new. - Symptoms have improved. Addendum: 02/01/2021 07:13 Co-signature as Attending Physician, Piero Velasquez MD I agree with the assessment and c kolb plan of care. Signatures: Dispatcher [employer] EDIN Piero Velasquez MD MD cha Marinas, Patrick, ORDER CONTROL CLERK BLOOD BANK ORDER CONTROL CLERK BLOOD BANK pm1 Sharyn Billy RN RN ca1 Brown, Zipporah, RN RN zb Corrections: (The following items were deleted from the chart) 01/30 19:47 19:28 01/30/2021 19:28 Discharged to Home. Impression: Headache; Diarrhea, unspecified. pm1 Condition is Stable. Forms are Medication Reconciliation Form, Thank You Letter, Antibiotic Education, Prescription Opioid Use. Follow up: Emergency Department; When: As needed; Reason: Worsening of condition. Follow up: Private Physician; When: 2 - 3 days; Reason: Recheck today's complaints, Continuance of care, Re-evaluation by your physician. Problem is new. Symptoms have improved. pm1 21:35 20:53 01/30/2021 20:53 Discharged to Home. Impression: Headache; Diarrhea, unspecified. zb Condition is Stable. Forms are Medication Reconciliation Form, Thank You Letter, Antibiotic Education, Prescription Opioid Use. Follow up: Emergency Department; When: As needed; Reason: Worsening of condition. Follow up: Private Physician; When: 2 - 3 days; Reason: Recheck today's complaints, Continuance of care, Re-evaluation by your physician. Problem is new. Symptoms have improved. pm1
--- NOTE | 2021-01-30 19:28 | ER ---
Nurse's Notes [facility] Name: Susana Tamayo Age: 40 yrs Sex: Female : 1980 Arrival Date: 01/30/2021 Time: 15:31 Bed 14 Private MD: Diagnosis: Headache;Diarrhea, unspecified Presentation: 01/30 15:52 Chief complaint: Patient states: Been having diarrhea since starting Zoloft on ca1 01/26/2021. yesterday, started having migraine. Coronavirus screen: Client denies travel out of the [place] in the last 14 days. At this time, the client does not indicate any symptoms associated with coronavirus-19. Ebola Screen: Patient negative for fever greater than or equal to 101.5 degrees Fahrenheit, and additional compatible Ebola Virus Disease symptoms Patient denies exposure to infectious person. Patient denies travel to an Ebola-affected area in the 21 days before illness onset. No symptoms or risks identified at this time. Initial Sepsis Screen: Does the patient meet any 2 criteria? No. Patient's initial sepsis screen is negative. Does the patient have a suspected source of infection? No. Patient's initial sepsis screen is negative. Risk Assessment: Do you want to hurt yourself or someone else? Patient reports no desire to harm self or others. Onset of symptoms was January 30, 2021. 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 Flu vaccine is not up to date. - Social history:: Smoking status: Patient reports the use of cigarette tobacco products, smokes one-half pack cigarettes per day. Screenin:10 Abuse screen: Denies threats or abuse. Denies injuries from another. Nutritional zb screening: No deficits noted. Tuberculosis screening: No symptoms or risk factors identified. Fall Risk None identified. Assessment: 18:09 General: Appears in no apparent distress. uncomfortable, Behavior is calm. Pain: zb Complains of pain in forehead and abdomen Pain currently is 8 out of 10 on a pain scale. Neuro: Level of Consciousness is awake, alert, obeys commands. Cardiovascular: Capillary refill < 3 seconds Patient's skin is warm and dry. Respiratory: Airway is patent Respiratory effort is even, unlabored, Respiratory pattern is regular, symmetrical. GI: Abdomen is round Reports lower abdominal pain, upper abdominal pain, diarrhea, Patient currently denies nausea, vomiting. Derm: Skin is intact, is healthy with good turgor, Skin is dry, Skin is normal. Musculoskeletal: Circulation, motion, and sensation intact. Range of motion: intact in all extremities. 19:00 Reassessment: Patient appears in no apparent distress at this time. Patient and/or zb family updated on plan of care and expected duration. Pain level reassessed. Patient is alert, oriented x 3, equal unlabored respirations, skin warm/dry/pink. 21:26 Reassessment: Patient appears in no apparent distress at this time. Patient and/or zb family updated on plan of care and expected duration. Pain level reassessed. Patient is alert, oriented x 3, equal unlabored respirations, skin warm/dry/pink. d/c instructions given. patient ambulated out. gait even and steady. 21:27 Reassessment: ECP at bedside to discuss care. Vital Signs: 15:52 BP 104 / 86; Pulse 87; Resp 16 S; Temp 97.6(TE); Pulse Ox 96% on R/A; Weight 82.1 kg ca1 (R); Height 5 ft. 9 in. (175.26 cm) (M); Pain 8/10; 17:00 BP 107 / 78; Pulse 68; Resp 18; Pulse Ox 100% on R/A; zb 18:00 BP 119 / 53; Pulse 68; Resp 16; Pulse Ox 100% on R/A; zb 19:12 BP 111 / 77; Pulse 72; Resp 16; Pulse Ox 96% on R/A; zb 21:26 BP 109 / 70; Pulse 53; Resp 16; Pulse Ox 100% on R/A; zb 15:52 Body Mass Index 26.73 (82.10 kg, 175.26 cm) ca1 ED Course: 15:31 Patient arrived in ED. bp1 15:54 Triage completed. ca1 15:55 Arm band placed on right wrist. ca1 17:12 Sammi Martinez RN is Primary Nurse. zb 17:14 Rashad Abarca NP is PHCP. pm1 17:14 Piero Velasquez MD is Attending Physician. pm1 18:09 Inserted saline lock: 20 gauge in right antecubital area, using aseptic technique. dh4 Blood collected. 18:10 Patient has correct armband on for positive identification. Bed in low position. Call zb light in reach. Side rails up X 1. Pulse ox on. NIBP on. Door closed. Noise minimized. 18:13 CT Head Brain wo Cont In Process Unspecified. EDMS 18:20 CT Abd/Pelvis - IV Contrast Only In Process Unspecified. EDMS 21:27 No provider procedures requiring assistance completed. IV discontinued, intact, zb bleeding controlled, No redness/swelling at site. Pressure dressing applied. Administered Medications: 18:08 Drug: TORadol (ketorolac) 30 mg Route: IVP; Site: right antecubital; zb 19:54 Follow up: Response: No adverse reaction; Marked relief of symptoms zb 18:08 Drug: Benadryl (diphenhydrAMINE) 25 mg Route: IVP; Site: right antecubital; zb 19:54 Follow up: Response: No adverse reaction; Marked relief of symptoms zb 18:31 Drug: NS 0.9% 1000 ml Route: IV; Rate: 1000 ml; Site: right antecubital; zb 19:58 Follow up: Response: No adverse reaction; IV Status: Completed infusion; IV Intake: zb 1000ml 18:32 Drug: Reglan (metoCLOPramide) 10 mg Route: IVP; Site: left antecubital; zb 19:54 Follow up: Response: No adverse reaction; Marked relief of symptoms zb 19:54 Follow up: Response: No adverse reaction; Marked relief of symptoms zb 20:05 Drug: morphine 4 mg {Note: RASS 0.} Route: IVP; Site: right antecubital; zb 21:26 Follow up: Response: No adverse reaction; Pain is decreased; RASS: Alert and Calm (0) zb Intake: 19:58 IV: 1000ml; Total: 1000ml. zb Outcome: 19:28 Discharge ordered by . pm1 20:53 Discharge ordered by . pm1 21:27 Discharged to home ambulatory. zb 21:27 Condition: stable 21:27 Discharge instructions given to patient, Instructed on discharge instructions, follow up and referral plans. medication usage, Demonstrated understanding of instructions, follow-up care, medications, Prescriptions given X 1. 21:35 Patient left the ED. zb Signatures: Dispatcher [employer] EDMI Rashad Abarca NP PATHOLOGIST pm1 Sharyn Billy RN RN [facility] Jj Rawls 4 Sarah Awan Zipporah, RN RN zb Corrections: (The following items were deleted from the chart) 21:34 21:27 Discharge instructions given to patient, Instructed on discharge instructions, zb follow up and referral plans. Demonstrated understanding of instructions, follow-up care, zb
[2021-01-30] MEDS ORDERED: MORPHINE 4 MG/ML SYR ONE (20:22)
[2021-01-30 21:55] VITALS: TEMP 97.6
[2021-01-30 22:05] VITALS: BP 109/70; O2SAT 100
== END 2021-01-30 21:35 | disposition home or self-care (01) ==
LOC: ER 15:28
DX: R51.9 Headache, unspecified (principal); R19.7 Diarrhea, unspecified; F17.210 Nicotine dependence, cigarettes, uncomplicated; F41.9 Anxiety disorder, unspecified; F32.9 Major depressive disorder, single episode, unspecified; K21.9 Gastro-esophageal reflux disease without esophagitis; J45.909 Unspecified asthma, uncomplicated
CPT/HCPCS: 36415; 70450; 74177; 80048; 80076; 82565; 83690; 85025; 86308; 99284; J1200; J2765; J7030; Q9967

== ENCOUNTER 2021-04-12 10:16 | Emergency (ER) | payer SELFPAY ==
--- OUTSIDE RECORDS SUMMARY | 2021-04-12 10:19 | XMS REPORT | Continuity of Care Document ---
:1980 Author Organization [facility] t Address [address] [place] [address] Care Team Providers Name Role Phone Thomas Harris Attending Clinician Frank LAZO Attending Clinician Payers Payer Name Policy Type Policy Number Effective Date Expiration Date S ource Problems This patient has no known problems. Allergies, Adverse Reactions, Alerts Allergy Allergy Status Severity Reaction(s) Onset Inactive Treating Comm ents Source Name Type Date Date Clinician No Known DA Active U 2019-0 [facility]ie 04-11 [facility] s 00:00: d 00 [facility] Medications This patient has no known medications. Procedures This patient has no known procedures. Encounters Start End Encounter Admission Attending Care Care Encounter Source Date/Time Date/Time Type Type Clinicians Facility Department ID 2020-12-28 2020-12-28 Emergency AARON Emerson [id number] 17:44:00 21:05:00 Jack Grace [id number] [place] [id number] [place] [id number] 2020-11-25 2020-11-25 Emergency AARON Marie [id number] 15:17:00 17:55:00 Cynise [place] [id number] [place] [id number] [place] [id number] Results Test Description Test Time Test Comments Results Result [facility] e Comments - CT ABD PELVIS 2020-04-11 FAX: N W/CONT 20:28:00 Ebonie Parry MD [place]: St: REG Name: RENEE PARRISH [facility] : 1980 Age/S: 40/F [address] [facility] Unit: [id number] Loc: [address] Phys: [place] [id number] Acct: [id number] Dis Date: Status: REG ER PHONE #: [phone] Exam Date: 04/11/20202012 FAX #: [phone] Reason: PAIN EXAMS: CPT CODE: [id number] CT ABD PELVIS W/CONT [id number] LOCATION: T18 EXAM: CT ABDOMEN AND PELVIS [...] = ALKP) 90 Units/L 50.0-136 .0 N [id number] 18:37:00 Test Item Value Reference Range Interpretation Comments LIPASE (test code = LIP) 140 Units/L 65.0-230.0 N [id number] 18:37:00 Test Item Value Reference Range Interpretation Comments ALCOHOL (test code 0.00 gm/dL 0.00-0.00 N ETHYL ALC OHOL VALUES - = ALC) INTERPRETATION: 0.050 GM/DL - NOT INT OXICATED 0.100 GM/DL - INTOXICATED 0.3 50-0.450 GM/DL - SEVEREL Y INTOXICATED 0.5 50 GM/DL- FATAL INTOXICAT ION DRUGS OF ABUSE SCREEN [id number] 18:33:00 Test Item Value Reference Range Interpretation [...] (test NEGATIVE NEGATIVE code = [place]) URINALYSIS [id number] 18:32:00 Test Item Value Reference Range Interpretation [...] code = TRACE NONE BACU) UR HCG [id number] 18:32:00 Test Item Value Reference Range Interpretation Comments UR HCG QUAL (test code = HCGQLU) NEGATIVE NEGATIVE URINALYSIS [id number] 18:31:00 Test Item Value Reference Range Interpretation [...] (test code = NONE BACU) UR HCG [id number] 18:31:00 Test Item Value Reference Range Interpretation Comments UR HCG QUAL (test code = HCGQLU) NEGATIVE COMPREHENSIVE METABOLIC [id number] 18:27:00 Test Item Value Reference Range Interpretation [...] TOTAL (test Units/L 50.0-136.0 code = ALKP) [id number] 18:27:00 Test Item Value Reference Range Interpretation Comments LIPASE (test code = LIP) Units/L 65.0-230.0 [id number] 18:27:00 Test Item Value Reference Range Interpretation Comments ALCOHOL (test code = ALC) gm/dL 0.00-0.00 CBC W/AUTO [id number] 18:16:00 Test Item Value Reference Range Interpretation [...]
--- NOTE | 2021-04-12 11:35 | ER ---
Nurse's Notes [facility] Name: Susana Tamayo Age: 41 yrs Sex: Female : 1980 Arrival Date: 04/12/2021 Time: 10:20 Bed Waiting Private MD: Diagnosis: Pain in left shoulder Presentation: 04/12 11:21 Chief complaint: Patient states: pain to left shoulder blade started yesterday , no iw trauma, hx of broken rotator cuff 4-5 years ago. Coronavirus screen: At this time, the client does not indicate any symptoms associated with coronavirus-19. Risk Assessment: Do you want to hurt yourself or someone else? Patient reports no desire to harm self or others. 11:21 Method Of Arrival: Ambulatory iw 11:21 Acuity: DIMPLE 4 iw Historical: - Allergies: 11:24 Darvocet-N 100; iw - Home Meds: 11:24 amitriptyline Oral [Active]; migraine medicine [Active]; iw - PMHx: 11:24 Anxiety; Asthma; Depression; GERD; Migraines; iw - Immunization history:: Client reports having NOT received the Covid vaccine. Screenin:25 Abuse screen: Denies threats or abuse. Denies injuries from another. Nutritional iw screening: No deficits noted. Tuberculosis screening: No symptoms or risk factors identified. Fall Risk None identified. Assessment: 11:24 General: Appears in no apparent distress. comfortable, Behavior is calm, cooperative. iw Pain: Complains of pain in right scapular area and right subscapular area. Neuro: Level of Consciousness is awake, alert, obeys commands, Oriented to person, place, time, situation, Moves all extremities. Full function. Cardiovascular: Patient's skin is warm and dry. Vital Signs: 11:23 BP 108 / 73; Pulse 84; Resp 16; Temp 97.7; Pulse Ox 98% on R/A; iw ED Course: 10:20 Patient arrived in ED. ds1 11:23 Triage completed. iw 11:33 Christoph Wayne PA is PHCP. jr8 11:33 Kyle Bae MD is Attending Physician. jr8 11:35 Vivek Sumner MD is Referral Physician. jr8 12:08 Arm band placed on right wrist. iw 12:08 No provider procedures requiring assistance completed. iw 12:08 Patient did not have IV access during this emergency room visit. iw Administered Medications: No medications were administered Outcome: 11:35 Discharge ordered by MD. mathias 12:08 Discharged to home ambulatory. iw 12:08 Condition: good 12:08 Discharge instructions given to patient, Instructed on discharge instructions, follow up and referral plans. Demonstrated understanding of instructions, follow-up care, medications, Prescriptions given X 1. 12:09 Patient left the ED. iw Signatures: Zehra Epps ds1 Zina Suh RN RN iw Christoph Wayne PA PA jr8
--- NOTE | 2021-04-12 11:36 | EDPHYS ---
Physician Documentation [facility] Name: Susana Tamayo Age: 41 yrs Sex: Female : 1980 Arrival Date: 04/12/2021 Time: 10:20 Bed Waiting Private MD: ED Physician Kyle Bae HPI: 04/12 11:36 This 41 yrs old Female presents to ER via Ambulatory with complaints of jr8 Shoulder Pain. 11:36 Left subscapular. Onset: The symptoms/episode began/occurred acutely. jr8 11:36 Modifying factors: the symptoms are alleviated by nothing. The symptoms are aggravated jr8 by movement. Associated signs and symptoms: The patient has no apparent associated signs or symptoms. Severity of symptoms: At their worst the symptoms were mild, in the emergency department the symptoms are unchanged. The patient has not experienced similar symptoms in the past. The patient has not recently seen a physician. This is a 41-year-old female patient that presented with left subscapular shoulder pain. Denies trauma. Stated that she has had rotator cuff repair in the past.. Historical: - Allergies: 11:24 Darvocet-N 100; iw - Home Meds: 11:24 amitriptyline Oral [Active]; migraine medicine [Active]; iw - PMHx: 11:24 Anxiety; Asthma; Depression; GERD; Migraines; iw - Immunization history:: Client reports having NOT received the Covid vaccine. ROS: 11:36 Eyes: Negative for injury, pain, redness, and discharge, ENT: Negative for injury, jr8 pain, and discharge, Neck: Negative for injury, pain, and swelling, Cardiovascular: Negative for chest pain, palpitations, and edema, Respiratory: Negative for shortness of breath, cough, wheezing, and pleuritic chest pain, Abdomen/GI: Negative for abdominal pain, nausea, vomiting, diarrhea, and constipation, MS/Extremity: Negative for injury and deformity, Skin: Negative for injury, rash, and discoloration, Neuro: Negative for headache, weakness, numbness, tingling, and seizure. 11:36 Back: Positive for pain at rest, pain with movement, of the left scapular area and left subscapular area. Exam: 11:36 Constitutional: This is a well developed, well nourished patient who is awake, alert, jr8 and in no acute distress. Neck: Trachea midline, no thyromegaly or masses palpated, and no cervical lymphadenopathy. Supple, full range of motion without nuchal rigidity, or vertebral point tenderness. No Meningismus. Chest/axilla: Normal chest wall appearance and motion. Nontender with no deformity. No lesions are appreciated. Cardiovascular: Regular rate and rhythm with a normal S1 and S2. No gallops, murmurs, or rubs. Normal PMI, no JVD. No pulse deficits. Respiratory: Lungs have equal breath sounds bilaterally, clear to auscultation and percussion. No rales, rhonchi or wheezes noted. No increased work of breathing, no retractions or nasal flaring. Abdomen/GI: Soft, non-tender, with normal bowel sounds. No distension or tympany. No guarding or rebound. No evidence of tenderness throughout. Back: No spinal tenderness. No costovertebral tenderness. Full range of motion. Mild subscapular tenderness noted upon palpation without signs of external trauma Skin: Warm, dry with normal turgor. Normal color with no rashes, no lesions, and no evidence of cellulitis. MS/ Extremity: Pulses equal, no cyanosis. Neurovascular intact. Full, normal range of motion. Neuro: Awake and alert, GCS 15, oriented to person, place, time, and situation. Cranial nerves II-XII grossly intact. Motor strength 5/5 in all extremities. Sensory grossly intact. Vital Signs: 11:23 BP 108 / 73; Pulse 84; Resp 16; Temp 97.7; Pulse Ox 98% on R/A; iw MDM: 11:33 Patient medically screened. [facility] 11:34 Data reviewed: vital signs, nurses notes, and as a result, I will discharge patient. jr Data interpreted: Pulse oximetry: on room air is 98 %. Interpretation: normal. Counseling: I had a detailed discussion with the patient and/or guardian regarding: the historical points, exam findings, and any diagnostic results supporting the discharge/admit diagnosis, the need for outpatient follow up, a orthopedic surgeon, to return to the emergency department if symptoms worsen or persist or if there are any questions or concerns that arise at home. ED course: Discussed with patient that at this time there is no external signs of trauma. Patient denies trauma to the arm. Will start patient on anti-inflammatory need for follow-up with orthopedic. At this time patient does not require imaging modality. If patient were to get worse follow-up with and or come back to the emergency room for further evaluation.. Administered Medications: No medications were administered Disposition: 13:40 Co-signature as Attending Physician, Kyle Bae MD I agree with the assessment and rn plan of care. Attestation: The patient's history, exam findings, diagnostics, and a summary of any interventions or procedures was reviewed in detail with Christoph LEBLANC. Disposition Summary: 04/12/21 11:35 Discharge Ordered Location: Home jr8 Problem: new jr8 Symptoms: have improved jr8 Condition: Stable jr8 Diagnosis - Pain in left shoulder jr8 Followup: jr8 - With: Vivek Sumner MD - When: 1 week - Reason: Recheck today's complaints, Continuance of care, Re-evaluation by your physician Discharge Instructions: - Discharge Summary Sheet jr8 - Shoulder Pain jr8 Forms: - Medication Reconciliation Form jr8 - Thank You Letter jr8 - Antibiotic Education jr8 - Prescription Opioid Use jr8 - Work release form kg Prescriptions: - meloxicam 15 mg Oral tablet - take 1 tablet by ORAL route once daily As needed; 12 tablet; Refills: 0, jr8 Product Selection Permitted Signatures: Zina Suh RN RN iw Nieto, Roman, MD MD rn Roszak, Josh, PA PA jr8
[2021-04-12 13:02] VITALS: BP 108/73; TEMP 97.7; O2SAT 98
== END 2021-04-12 12:09 | disposition home or self-care (01) ==
LOC: ER 10:16
DX: M25.512 Pain in left shoulder (principal); F41.8 Other specified anxiety disorders; Z88.5 Allergy status to narcotic agent
CPT/HCPCS: 99282

== ENCOUNTER 2021-07-23 01:40 | Emergency (ER) | payer SELFPAY ==
--- OUTSIDE RECORDS SUMMARY | 2021-07-23 01:47 | XMS REPORT | Continuity of Care Document ---
:1980 Author Organization [facility] t Address [address] [place] [address] Care Team Providers Name Role Phone Curt Kearney Primary Care Physician Tomas Suh DO Attending Clinician Bridgette SHEARER R Attending Clinician Doctor Unassigned, Name Attending Clinician Unavailable Therapy, Covid Infusion Attending Clinician Unavailable Alessandro TORRES, Nia Attending Clinician Nia FRANCOIS Attending Clinician Unavailable Noam TARE WEIGHER Attending Clinician Idania LAZO, F Attending Clinician Frank TARE WEIGHER Attending Clinician Physician, Primary or Family Admitting Clinician Unavailabl e Payers Payer Name Policy Type Policy Number Effective Date Expiration Date S ource Problems Condition Condition Condition Status Onset Resolution Last Treating Co mments Source Name Details Category Date Date Treatment Clinician Date Vesicular Vesicular Disease Active Uni vers palmoplant palmoplant -20 it y [place] eczema [place] [facility] Allergies, Adverse Reactions, Alerts Allergy Allergy Status Severity Reaction(s) Onset Inactive Treating Comm ents Source Name Type Date Date Clinician No Known DA Active U 2020-0 [facility] Allergie 04-11 [place] [facility] 00:00: d 00 [facility] No Known DA Active U [facility] Allergie 04-11 [place] 00:00: d 00 [facility] PROPOXYP DRUG Active N/V Univers HENE 2-08 ity of N-ACETAM 00:00: [place] INOPHEN [address] [place] [address] Propoxyp Propensi Active Nausea Univer s hene ty to and/or 2-08 ity of N-Acetam adverse Vomiting 00:00: [place] inophen reaction [facility] Social History Social Habit Start Date Stop Date Quantity Comments Source History of tobacco Cigarette Smoker University of use [facility] Exposure to Not sure University of SARS-CoV-2 (event) [facility] Cigarettes smoked 2021-05-03 2021-05-03 Univers ity of current (pack per 00:00:00 00:00:00 ) - Reported [place] Cigarette 2021-05-03 2021-05-03 University of pack-years 00:00:00 00:00:00 [facility] Tobacco use and 2021-05-03 2021-05-03 Never used Universit y of exposure 00:00:00 00:00:00 [facility] Alcohol intake 2021-05-03 2021-05-03 University of 00:00:00 00:00:00 [facility] Sex Assigned At [birth year] Universit y of 00:00:00 00:00:00 [facility] Smoking Status Start Date Stop Date Source Current every day smoker 2021-05-03 00:00:00 Uni versity of [facility] Medications Ordered Filled Start Stop Current Ordering Indication Dosage Frequency Signature Comments Components Source Medication Medication Date Date Medication? Clinician (SIG) Name Name casirivimab 2020- No [id number] 1200mg Univers -imdevimab 04-22 ity of (REGEN-COV 19:30: 19:24 [place] (EUA)) 00 :00 Medical 1,200 mg in Branch NaCl 0.9% (NS) 60 mL IV infusion casirivimab 2020- No [id number] 1200mg 1,200 mg, Univers -imdevimab 04-22 IV ity of (REGEN-COV 19:30: 19:24 [place]fusion, [place] (EUA[place] 00 :00 ONCE, Medical 1,200 mg in Administer Br anch NaCl 0.9% over 20 (NS) 60 mL Minutes, IV infusion [facility] 04/22/21 at 1430, For 1 dose
Ad line clearance foreman as an IV infusion via pump or gravity over at least 60 minutes through an intravenou s line containing a sterile, in-line or add-on 0.2-micron polyethers ulfone (PES) filter.&nb sp;Stable 36 hours refrigerat ed; 4 hours at room temperatur e. &nbs p;
ondansetron 2020- No 4mg 4 mg, Univ ers (ZOFRAN-ODT 04-16 Oral, ity of ) 17:30: 16:34 ONCE, 1 [place] disintegrat 00 :00 dose, Fri Med ical ing tablet 04/16/21 at [facility] 4 mg 1230, Routine dexamethaso 2020- No 10mg 10 mg, Uni vers ne 04-16 Intramuscu ity of (DECADRON 17:30: 16:38 lar, ONCE, [place] PHOSPHATE) 00 :00 1 dose, Medica l injection Fri Branch 10 mg 04/16/21 at 1230, STAT ketorolac 2020- No 60mg 60 mg, Unive rs (TORADOL) 04-16 Intramuscu ity of injection 17:30: 16:37 lar, ONCE, [place] 60 mg 00 :00 1 dose, Medical Fri Branch 04/16/21 at 1230, SHEBA
Fa culty member approving Restricted medication : EMERGENCY ROOM, ondansetron Yes [id number] 4mg Take 1 Univers (ZOFRAN 04-16 tablet by ity of ODT) 4 mg 00:00: mouth [place] disintegrat 00 every 8 Medic al ing tablet (eight) Branch hours as needed for Nausea and Vomiting (N/V). bromphenira Yes [id number] 5mL Take 5 mL Univers mine-pseudo 04-16 by mouth 4 it y of ephedrine-D 00:00: (four) [place] (BROMFED 00 times Medical DM) 2-30-10 daily as Bran ch mg/5 mL needed for syrup Congestion /Allergies . ondansetron 2021-0 Yes [id number] 4mg Take 1 Univers (ZOFRAN 8-13 tablet by ity of ODT) 4 mg 00:00: mouth [place] disintegrat 00 every 8 Medic al ing tablet (eight) Branch hours as needed for Nausea and Vomiting (N/V). bromphenira 2021-0 Yes [id number] 5mL Take 5 mL Univers mine-pseudo 8-13 by mouth 4 it y of ephedrine-D 00:00: (four) [place] (BROMFED 00 times Medical DM) 2-30-10 daily as Bran ch mg/5 mL needed for syrup Congestion /Allergies . ondansetron 1-0 Yes [id number] 4mg Take 1 Univers (ZOFRAN 8-13 tablet by ity of ODT) 4 mg 00:00: mouth [place] disintegrat 00 every 8 Medic al ing tablet (eight) Branch hours as needed for Nausea and Vomiting (N/V). bromphenira 2021-0 Yes [id number] 5mL Take 5 mL Univers mine-pseudo 8-13 by mouth 4 it y of ephedrine-D 00:00: (four) [place] (BROMFED 00 times Medical DM) 2-30-10 daily as Bran ch mg/5 mL needed for syrup Congestion /Allergies . ondansetron 1-0 Yes [id number] 4mg Take 1 Univers (ZOFRAN 8-13 tablet by ity of ODT) 4 mg 00:00: mouth [place] disintegrat 00 every 8 Medic al ing tablet (eight) Branch hours as needed for Nausea and Vomiting (N/V). bromphenira 2021-0 Yes [id number] 5mL Take 5 mL Univers mine-pseudo 8-13 by mouth 4 it y of ephedrine-D 00:00: (four) [place] (BROMFED 00 times Medical DM) 2-30-10 daily as Bran ch mg/5 mL needed for syrup Congestion /Allergies . ondansetron 2021-0 Yes [id number] 4mg Take 1 Univers (ZOFRAN 8-13 tablet by ity of ODT) 4 mg 00:00: mouth [place] disintegrat 00 every 8 Medic al ing tablet (eight) Branch hours as needed for Nausea and Vomiting (N/V). bromphenira Yes [id number] 5mL Take 5 mL Univers mine-pseudo 8-13 by mouth 4 it y of ephedrine-D 00:00: (four) [place] M (BROMFED 00 times Medical DM) 2-30-10 daily as Bran ch mg/5 mL needed for syrup Congestion /Allergies . ondansetron Yes [id number] 4mg Take 1 Univers (ZOFRAN 8-13 tablet by ity of ODT) 4 mg 00:00: mouth [place] disintegrat 00 every 8 Medic al ing tablet (eight) Branch hours as needed for Nausea and Vomiting (N/V). bromphenira Yes [id number] 5mL Take 5 mL Univers mine-pseudo 8-13 by mouth 4 it y of ephedrine-D 00:00: (four) [place] (BROMFED 00 times Medical DM) 2-30-10 daily as Bran ch mg/5 mL needed for syrup Congestion /Allergies . predniSONE 2020- No [id number] 40mg Take 2 Univers 20 mg 8-13 08-19 tablets by ity of tablet 00:00: 04:59 mouth [place] 00 :00 daily for Medical 5 days. Branch dexamethaso 2020- No 10mg 10 mg, Uni vers ne 12-29 Intramuscu ity of (DECADRON 01:15: 01:15 lar, ONCE, [place] PHOSPHATE) 00 :00 1 dose, Medica l injection Mon Branch 10 mg 12/28/20 at 2014, STAT ketorolac 2020- No 30mg 30 mg, Unive rs (TORADOL) 12-29 Intramuscu ity of injection 01:15: 00:22 [place], ONCE, [place] 30 mg 00 :00 1 dose, Medical Mon Branch 12/28/20 at 2014, SHEBA
Fa culty member approving Restricted medication : GENO VILLALOBOS ibuprofen Yes [id number] 600mg Take 1 Univers 600 mg 4-26 tablet by ity of tablet 00:00: mouth [place] 00 every 6 Medical (six) Branch hours as needed for Pain (scale 4-6). ibuprofen Yes [id number] 600mg Take 1 Univers 600 mg 4-26 tablet by ity of tablet 00:00: mouth [place] 00 every 6 Medical (six) Branch hours as needed for Pain (scale 4-6). ibuprofen 2020-0 Yes [id number] 600mg Take 1 Univers 600 mg 4-26 tablet by ity of tablet 00:00: mouth [place] 00 every 6 Medical (six) Branch hours as needed for Pain (scale 4-6). ibuprofen 2020-0 Yes [id number] 600mg Take 1 Univers 600 mg 4-26 tablet by ity of tablet 00:00: mouth [place] 00 every 6 Medical (six) Branch hours as needed for Pain (scale 4-6). ibuprofen 0 Yes [id number] 600mg Take 1 Univers 600 mg 4-26 tablet by ity of tablet 00:00: mouth [place] 00 every 6 Medical (six) Branch hours as needed for Pain (scale 4-6). ibuprofen 0 Yes [id number] 600mg Take 1 Univers 600 mg 4-26 tablet by ity of tablet 00:00: mouth [place] 00 every 6 Medical (six) Branch hours as needed for Pain (scale 4-6). ibuprofen 2020-0 Yes [id number] 600mg Take 1 Univers 600 mg 4-26 tablet by ity of tablet 00:00: mouth [place] 00 every 6 Medical (six) Branch hours as needed for Pain (scale 4-6). cephALEXin 2020- No [id number] 500mg Take 1 Univers 500 mg 4-26 05-04 capsule by ity of capsule 00:00: 04:59 mouth 4 [place] 00 :00 (four) Medical times Branch daily for 7 days. KCL 2020-0 2020- No 40meq 40 mEq, Univers (KLOR-CON 24 03-24 Oral, ity of M20) tablet 23:00: 22:04 ONCE, 1 [place] 40 mEq 00 :00 dose, Mon Medical 11/25/20 at Branch 1800, SHEBA aspirin 2020-0 2020- No 325mg 325 mg, Unive rs tablet 325 11-25-24 Oral, ity of mg 21:30: 20:34 ONCE, 1 [place] 00 :00 dose, Mon Medical 11/25/20 at Branch 1630, STAT albuterol 2018-0 Yes 2{puff} Inhale 2 U nivers (PROAIR 2-08 Puffs ity of HFA) 90 14:52: every 6 [place] mcg/actuati 08 (six) Medical on inhaler hours as Branc h needed. ibuprofen 2018-0 Yes 800mg Take 800 Uni vers (MOTRIN) 2-08 mg by ity of 800 mg 14:52: mouth [place] tablet 08 every 6 Medical (six) Branch hours as needed. albuterol 2018-0 Yes 2{puff} Inhale 2 U nivers (PROAIR 2-08 Puffs ity of HFA) 90 14:52: every 6 [place] mcg/actuati 08 (six) Medical on inhaler hours as Branc h needed. ibuprofen 2018-0 Yes 800mg Take 800 Uni vers (MOTRIN) 2-08 mg by ity of 800 mg 14:52: mouth [place] tablet 08 every 6 Medical (six) Branch hours as needed. albuterol 2018-0 Yes 2{puff} Inhale 2 U nivers (PROAIR 2-08 Puffs ity of HFA) 90 14:52: every 6 [place] mcg/actuati 08 (six) Medical on inhaler hours as Branc h needed. ibuprofen 2018-0 Yes 800mg Take 800 Uni vers (MOTRIN) 2-08 mg by ity of 800 mg 14:52: mouth [place] tablet 08 every 6 Medical (six) Branch hours as needed. albuterol 2018-0 Yes 2{puff} Inhale 2 U nivers (PROAIR 2-08 Puffs ity of HFA) 90 14:52: every 6 [place] mcg/actuati 08 (six) Medical on inhaler hours as Branc h needed. ibuprofen 2018-0 Yes 800mg Take 800 Uni vers (MOTRIN) 2-08 mg by ity of 800 mg 14:52: mouth [place] tablet 08 every 6 Medical (six) Branch hours as needed. albuterol 2018-0 Yes 2{puff} Inhale 2 U nivers (PROAIR 2-08 Puffs ity of HFA) 90 14:52: every 6 [place] mcg/actuati 08 (six) Medical on inhaler hours as Branc h needed. ibuprofen 2018-0 Yes 800mg Take 800 Uni vers (MOTRIN) 2-08 mg by ity of 800 mg 14:52: mouth [place] tablet 08 every 6 Medical (six) Branch hours as needed. albuterol 2018-0 Yes 2{puff} Inhale 2 U nivers (PROAIR 2-08 Puffs ity of HFA) 90 14:52: every 6 [place] mcg/actuati 08 (six) Medical on inhaler hours as Branc h needed. ibuprofen 2018-0 Yes 800mg Take 800 Uni vers (MOTRIN) 2-08 mg by ity of 800 mg 14:52: mouth [place] tablet 08 every 6 Medical (six) Branch hours as needed. albuterol 2018-0 Yes 2{puff} Inhale 2 U nivers (PROAIR 2-08 Puffs ity of HFA) 90 14:52: every 6 [place] mcg/actuati 08 (six) Medical on inhaler hours as Branc h needed. ibuprofen 2018-0 Yes 800mg Take 800 Uni vers (MOTRIN) 2-08 mg by ity of 800 mg 14:52: mouth [place] tablet 08 every 6 Medical (six) Branch hours as needed. albuterol 2018-0 Yes 2{puff} Inhale 2 U nivers (PROAIR 2-08 Puffs ity of HFA) 90 14:52: every 6 [place] mcg/actuati 08 (six) Medical on inhaler hours as Branc h needed. ibuprofen 2018-0 Yes 800mg Take 800 Uni vers (MOTRIN) 2-08 mg by ity of 800 mg 14:52: mouth [place] tablet 08 every 6 Medical (six) Branch hours as needed. traMADOL 50 2018-0 Yes 50mg Take 1 Univ ers mg tablet 2-08 tablet by ity o f 00:00: mouth [place] 00 every 6 Medical (six) Branch hours as needed for Pain (scale 4-6). ciprofloxac 2018-0 Yes 500mg Take 1 Uni vers in HCl 500 2-08 tablet by ity of mg tablet 00:00: mouth 2 [place] 00 (two) Medical times Branch daily. metroNIDAZO 2018-0 Yes 500mg Take 1 Uni vers LE 500 mg 2-08 tablet by ity o f tablet 00:00: mouth 2 [place] 00 (two) Medical times Branch daily. diphenoxyla 2018-0 Yes 1{tbl} Take 1 Un jacky te-atropine 2-08 tablet by ity of (LOMOTIL) 00:00: mouth [place] 2.5-0.025 00 every 6 Medical mg per (six) Branch tablet hours as needed (t). traMADOL 50 2018-0 Yes 50mg Take 1 Univ ers mg tablet 2-08 tablet by ity o f 00:00: mouth [place] 00 every 6 Medical (six) Branch hours as needed for Pain (scale 4-6). ciprofloxac 2018-0 Yes 500mg Take 1 Uni vers in HCl 500 2-08 tablet by ity of mg tablet 00:00: mouth 2 00 (two) Medical times Branch daily. metroNIDAZO 2018-0 Yes 500mg Take 1 Uni vers LE 500 mg 2-08 tablet by ity o f tablet 00:00: mouth 2 [place] 00 (two) Medical times Branch daily. diphenoxyla 2018-0 Yes 1{tbl} Take 1 Un jacky te-atropine 2-08 tablet by ity of (LOMOTIL) 00:00: mouth [place] 2.5-0.025 00 every 6 Medical mg per (six) Branch tablet hours as needed (t). traMADOL 50 2018-0 Yes 50mg Take 1 Univ ers mg tablet 2-08 tablet by ity o f 00:00: mouth [place] 00 every 6 Medical (six) Branch hours as needed for Pain (scale 4-6). ciprofloxac 2018-0 Yes 500mg Take 1 Uni vers in HCl 500 2-08 tablet by ity of mg tablet 00:00: mouth 2 00 (two) Medical times Branch daily. metroNIDAZO 2018-0 Yes 500mg Take 1 Uni vers LE 500 mg 2-08 tablet by ity o f tablet 00:00: mouth 2 00 (two) Medical times Branch daily. diphenoxyla 2018-0 Yes 1{tbl} Take 1 Un jacky te-atropine 2-08 tablet by ity of (LOMOTIL) 00:00: mouth [place] 2.5-0.025 00 every 6 Medical mg per (six) Branch tablet hours as needed (t). traMADOL 50 2018-0 Yes 50mg Take 1 Univ ers mg tablet 2-08 tablet by ity o f 00:00: mouth [place] 00 every 6 Medical (six) Branch hours as needed for Pain (scale 4-6). ciprofloxac 2018-0 Yes 500mg Take 1 Uni vers in HCl 500 2-08 tablet by ity of mg tablet 00:00: mouth 2 [place] 00 (two) Medical times Branch daily. metroNIDAZO 2018-0 Yes 500mg Take 1 Uni vers LE 500 mg 2-08 tablet by ity o f tablet 00:00: mouth 2 (two) Medical times Branch daily. diphenoxyla 2018-0 Yes 1{tbl} Take 1 Un jacky te-atropine 2-08 tablet by ity of (LOMOTIL) 00:00: mouth [place] 2.5-0.025 00 every 6 Medical mg per (six) Branch tablet hours as needed (t). traMADOL 50 2018-0 Yes 50mg Take 1 Univ ers mg tablet 2-08 tablet by ity o f 00:00: mouth [place] 00 every 6 Medical (six) Branch hours as needed for Pain (scale 4-6). ciprofloxac 2018-0 Yes 500mg Take 1 Uni vers in HCl 500 2-08 tablet by ity of mg tablet 00:00: mouth (two) Medical times Branch daily. metroNIDAZO 2018-0 Yes 500mg Take 1 Uni vers LE 500 mg 2-08 tablet by ity o f tablet 00:00: mouth 2 (two) Medical times Branch daily. diphenoxyla 2018-0 Yes 1{tbl} Take 1 Un jacky te-atropine 2-08 tablet by ity of (LOMOTIL) 00:00: mouth [place] 2.5-0.025 00 every 6 Medical mg per (six) Branch tablet hours as needed (t). traMADOL 50 2018-0 Yes 50mg Take 1 Univ ers mg tablet 2-08 tablet by ity o f 00:00: mouth [place] 00 every 6 Medical (six) Branch hours as needed for Pain (scale 4-6). ciprofloxac 2018-0 Yes 500mg Take 1 Uni vers in HCl 500 2-08 tablet by ity of mg tablet 00:00: mouth 2 00 (two) Medical times Branch daily. metroNIDAZO 2018-0 Yes 500mg Take 1 Uni vers LE 500 mg 2-08 tablet by ity o f tablet 00:00: mouth 2 00 (two) Medical times Branch daily. diphenoxyla 2018-0 Yes 1{tbl} Take 1 Un jacky te-atropine 2-08 tablet by ity of (LOMOTIL) 00:00: mouth [place] 2.5-0.025 00 every 6 Medical mg per (six) Branch tablet hours as needed (t). traMADOL 50 2018-0 Yes 50mg Take 1 Univ ers mg tablet 2-08 tablet by ity o f 00:00: mouth [place] 00 every 6 Medical (six) Branch hours as needed for Pain (scale 4-6). ciprofloxac 2018-0 Yes 500mg Take 1 Uni vers in HCl 500 2-08 tablet by ity of mg tablet 00:00: mouth 2 00 (two) Medical times Branch daily. metroNIDAZO 2018-0 Yes 500mg Take 1 Uni vers LE 500 mg 2-08 tablet by ity o f tablet 00:00: mouth 2 00 (two) Medical times Branch daily. diphenoxyla 2018-0 Yes 1{tbl} Take 1 Un jacky te-atropine 2-08 tablet by ity of (LOMOTIL) 00:00: mouth [place] 2.5-0.025 00 every 6 Medical mg per (six) Branch tablet hours as needed (t). traMADOL 50 2018-0 Yes 50mg Take 1 Univ ers mg tablet 2-08 tablet by ity o f 00:00: mouth [place] 00 every 6 Medical (six) Branch hours as needed for Pain (scale 4-6). ciprofloxac 2018-0 Yes 500mg Take 1 Uni vers in HCl 500 2-08 tablet by ity of mg tablet 00:00: mouth 2 (two) Medical times Branch daily. metroNIDAZO 2018-0 Yes 500mg Take 1 Uni vers LE 500 mg 2-08 tablet by ity o f tablet 00:00: mouth 2 (two) Medical times Branch daily. diphenoxyla 2018-0 Yes 1{tbl} Take 1 Un jacky te-atropine 2-08 tablet by ity of (LOMOTIL) 00:00: mouth [place] 2.5-0.025 00 every 6 Medical mg per (six) Branch tablet hours as needed (t). triamcinolo Yes [id number] Apply to [facility] 7-18 area(s) 2 ity of acetonide 00:00: (two) [place] (KENALOG) 00 times Medical 0.1 % daily. Branch ointment triamcinolo 2012- Yes [id number] Apply to [facility] 7-18 area(s) 2 ity of acetonide 00:00: (two) [place] (KENALOG) 00 times Medical 0.1 % daily. Branch ointment triamcinolo 2013-0 Yes [id number] Apply to [facility] 7-18 area(s) 2 ity of acetonide 00:00: (two) [place] (KENALOG) 00 times Medical 0.1 % daily. Branch ointment triamcinolo 2012-0 Yes [id number] Apply to [facility] 7-18 area(s) 2 ity of acetonide 00:00: (two) [place] (KENALOG) 00 times Medical 0.1 % daily. Branch ointment triamcinolo 2012-0 Yes [id number] Apply to [facility] ne 7-18 area(s) 2 ity of acetonide 00:00: (two) [place] (KENALOG) 00 times Medical 0.1 % daily. Branch ointment triamcinolo 2012- Yes [id number] Apply to [facility] 7-18 area(s) 2 ity of acetonide 00:00: (two) [place] (KENALOG) 00 times Medical 0.1 % daily. Branch ointment triamcinolo 2012-0 Yes [id number] Apply to [facility] 7-18 area(s) 2 ity of acetonide 00:00: (two) [place] (KENALOG) 00 times Medical 0.1 % daily. Branch ointment triamcinolo 2012-0 Yes [id number] Apply to [facility] 7-18 area(s) 2 ity of acetonide 00:00: (two) [place] (KENALOG) 00 times Medical 0.1 % daily. Branch ointment Vital Signs Vital Name Observation Time Observation Value Comments Source Systolic blood 2021-05-03 17:27:00 127 mm[facility] Diastolic blood 2021-05-03 17:27:00 74 mm[facility]Hg[facility] Heart rate 2021-05-03 17:27:00 94 /[facility] Body temperature 2021-05-03 17:27:00 37.11 Jeanette [facility] Respiratory rate 2021-05-03 17:27:00 16 /min [facility] Body height 2021-05-03 17:27:00 175.3 cm [facility] [place] [facility] Body weight 2021-05-03 17:27:00 68.04 kg [facility] [place] [facility] BMI 2021-05-03 17:27:00 22.15 kg/m2 [facility] [place] [facility] Oxygen saturation in 2021-05-03 17:27:00 97 /min University of Arterial blood by [facility] Pulse oximetry Branch Systolic blood 2021-04-22 20:25:00 99 mm[Hg] Univer sity of pressure [place] [facility] Diastolic blood 2021-04-22 20:25:00 64 mm[Hg] Unive rsity of pressure [place] [facility] Heart rate 2021-04-22 20:25:00 75 /min [facility]i [facility] [place] [facility] Body temperature 2021-04-22 20:25:00 36.5 Jeanette Univ ersity [facility] [place] [facility] Respiratory rate 2021-04-22 20:25:00 17 /min Univ ersity of [place] [facility] Oxygen saturation in 2021-04-22 20:25:00 99 /min University of Arterial blood by [facility] Pulse oximetry Branch Body height 2021-04-22 18:25:00 175.3 cm [facility] [place] [facility] Body weight 2021-04-22 18:25:00 84.823 kg [facility] [place] [facility] BMI 2021-04-22 18:25:00 27.62 kg/m2 [facility] [place] [facility] Systolic blood 2021-04-16 16:16:00 137 mm[Hg] Univer sity of pressure [place] [facility] Diastolic blood 2021-04-16 16:16:00 68 mm[Hg] Unive rsity of pressure [place] [facility] Heart rate 2021-04-16 16:16:00 78 /min [facility] [place] [facility] Body temperature 2021-04-16 16:16:00 36.83 Jeanette Univ ers[facility] [place] [facility] Respiratory rate 2021-04-16 16:16:00 18 /min Univ ersity [facility] [place] [facility] Body height 2021-04-16 16:16:00 175.3 cm [facility] [place] [facility] Body weight 2021-04-16 16:16:00 80.74 kg [facility] [place] [facility] BMI 2021-04-16 16:16:00 26.29 kg/m2 [facility] [place] [facility] Oxygen saturation in 2021-04-16 16:16:00 97 /min University of Arterial blood by [facility] Pulse oximetry Branch Systolic blood 2020-12-29 00:00:00 123 mm[Hg] Univer sity of pressure [place] [facility] Diastolic blood 2020-12-29 00:00:00 82 mm[Hg] Unive rsity of pressure [place] [facility] Heart rate 2020-12-29 00:00:00 77 /min [facility] [place] [facility] Respiratory rate 2020-12-29 00:00:00 16 /min Univ ersity [facility] [place] [facility] Oxygen saturation in 2020-12-29 00:00:00 99 /min University of Arterial blood by [facility] Pulse oximetry Branch Body temperature 2020-12-28 20:34:00 37 Jeanette Univ ers[facility] [place] [facility] Body weight 2020-12-28 20:34:00 68.04 kg [facility] [place] [facility] BMI 2020-12-28 20:34:00 22.81 kg/m2 [facility] [place] [facility] Systolic blood 2020-12-29 00:00:00 123 mm[Hg] Univer sity of pressure [place] [facility] Diastolic blood 2020-12-29 00:00:00 82 mm[Hg] Unive rsity of pressure [place] [facility] Heart rate 2020-12-29 00:00:00 77 /min [facility] [place] [facility] Respiratory rate 2020-12-29 00:00:00 16 /min Univ ersity [facility] [place] [facility] Oxygen saturation in 2020-12-29 00:00:00 99 /min University of Arterial blood by [facility] Pulse oximetry Branch Body temperature 2020-12-28 20:34:00 37 Jeanette Univ ers[facility] [place] [facility] Body weight 2020-12-28 20:34:00 68.04 kg [facility] [place] [facility] BMI 2020-12-28 20:34:00 22.81 kg/m2 [facility] [place] [facility] Systolic blood 2020-11-25 22:00:00 125 mm[Hg] Univer sity of pressure [place] [facility] Diastolic blood 2020-11-25 22:00:00 87 mm[Hg] Unive rsity of pressure [place] [facility] Heart rate 2020-11-25 22:00:00 89 /min [facility] [place] [facility] Respiratory rate 2020-11-25 22:00:00 19 /min Univ ers[facility] [place] [facility] Oxygen saturation in 2020-11-25 22:00:00 96 /min University of Arterial blood by [facility] Pulse oximetry Branch Body temperature 2020-11-25 20:16:[address] [facility] ersity of [place] [facility] Body weight 2020-11-25 20:16:00 68.04 kg [facility] [place] [facility] BMI 2020-11-25 20:16:00 22.81 kg/m2 [facility] [place] [facility] Systolic blood 2020-11-25 22:00:00 125 mm[Hg] Univer sity of pressure [place] [facility] Diastolic blood 2020-11-25 22:00:00 87 mm[Hg] Unive rsity of pressure [place] [facility] Heart rate 2020-11-25 22:00:00 89 /min [facility] [place] [facility] Respiratory rate 2020-11-25 22:00:00 19 /min [facility] ersity of [place] [facility] Oxygen saturation in 2020-11-25 22:00:00 96 /min University of Arterial blood by [facility] Pulse oximetry Branch Body temperature 2020-11-25 20:16:[address] [facility] ersity of [place] [facility] Body weight 2020-11-25 20:16:00 68.04 kg [facility] [place] [facility] BMI 2020-11-25 20:16:00 22.81 kg/m2 [facility] [place] Medical Branch Procedures Procedure Date / Time Performed Performing Clinician [facility] e CONSENT/REFUSAL FOR 2021-05-03 16:52:48 [facility], [facility] AND Name [facility] Branch TREATMENT ASSIGNMENT OF BENEFITS 2021-04-16 17:52:37 Doctor Unassigned, No [facility] Medical Branch RAPID STREP SCREEN FOR 2021-04-16 16:30:00 Mary Beth Santacruz [facility] GROUP A Medical Branch CONSENT/REFUSAL FOR 2021-04-16 15:59:46 Doctor Un[facility]igned, [facility] AND Name Medical Branch TREATMENT URINALYSIS 2020-12-29 00:19:00 [facility]o [facility] CONSENT/REFUSAL FOR 2020-12-28 20:23:27 Doctor Unassigned, No Un [facility] DIAGNOSIS AND Name Medical Branch TREATMENT TROPONIN I 2020-11-25 22:10:00 [facility] X[facility] CHEST 1 VW 2020-11-25 20:46:11 [facility] LIPASE 2020-11-25 20:34:00 [facility] TROPONIN I 2020-11-25 20:34:00 [facility] HEPATIC FUNCTION PANEL 2020-11-25 20:34:00 Huang Marie [facility] ([id number]) [facility] (ALB,T.PRO,BILI T,BU/BC,ALT,AST,ALK PHOS) BASIC METABOLIC PANEL 2020-11-25 20:34:00 Huang Marie [facility] (NA, K, CL, CO2, Medical Branch GLUCOSE, BUN, CREATININE, CA) CBC WITH DIFF 2020-11-25 20:34:00 [facility] N-TERMINAL PRO-BNP 2020-11-25 20:34:00 Huang Marie [facility] HB ECG ROUTINE & 2020-11-25 20:22:52 [facility] RHYTHM STRIP [facility] Branch Encounters Start End Encounter Admission Attending Care Care Encounter Source Date/Time Date/Time Type Type Clinicians Facility Department ID 2021-07-05 Emergency [facility] [id number] [facility] 19:02:36 it of [facility] 2021-07-05 Emergency [facility] [id number] Univers 15:21:12 it of [facility] 2021-07-04 Emergency [facility] [id number] Univers 15:22:03 ity of [facility] 2021-07-04 Emergency [facility] [id number] Univers 08:16:41 [facility] 2020-04-11 Inpatient HCAMN VIVIEN [id number] [facility] 17:34:00 [id number] [facility] 2021-05-03 2021-05-03 Emergency Sidra Suh [facility] 1.2.8 40.114 [id number] Univers 12:30:00 21:32:00 Danielle Angeles [id number] ity of [place] 4.2.7.2.686 [facility] [id number] [facility] 084 Branch 2021-05-03 2021-05-03 Orders Doctor FERMÍN 1.2.840.114 [id number] Univers 00:00:00 00:00:00 Only Unassigned, ROLAND [id number] [facility] 4.2.7.2.686 Joce as [id number] [facility] 009 Branch 2021-04-22 2021-04-22 Nurse Therapy, Adc Covid Infusion [facility] 1.2.840.114 [id number] Univers 12:53:19 13:53:19 Visit Darrell Francois [id number] ity of [place] 4.2.7.2.686 [facility] [id number] [facility] 053 Branch 2021-04-22 2021-04-22 Outpatient R [facility] [id number] Univers 13:00:00 13:00:00 [id number] ity [facility] 2021-04-22 2021-04-22 [facility] [id number] Univers 13:00:00 13:00:00 DARRELL ity of [facility] 2021-04-16 2021-04-16 Emergency Noam, [facility] [id number] Univers 11:17:00 13:59:00 Mary Beth Grace [id number] i ty of [place] 4.2.7.2.686 [facility] [id number] [place] [address] Branch 2020-12-28 2020-12-28 Emergency Idania [facility] 1.2.840.114 [id number] Univers 17:44:00 21:05:00 Geno Grace 350.1.13.10 ity of [place] 4.2.7.2.686 [facility] [id number] [facility] 084 Branch 2020-12-28 2020-12-28 Emergency Idania, [facility] 1.2.840.114 [id number] 17:44:00 21:05:00 Geno Grace 350.1.13.10 [place] 4.2.7.2.686 [place] [id number] 084 2020-11-25 2020-11-25 Emergency Frank, [facility] [id number] [facility] 15:17:00 17:55:00 Huang Grace 350.1.13.10 i ty of [place] 4.2.7.2.686 [facility] [id number] [place] 082994 Branch 2020-11-25 2020-11-[address] [facility] [id number] 15:17:00 17:55:00 Huang Grace 350.1.13.10 [place] 4.2.7.2.686 [place] [address] [id number] 084 Results Test Description Test Time Test Comments Results Result Comments Source RAPID STREP SCREEN FOR GROUP A 2021-04-16 17:16:32 Test Item Value Reference Range Interpretation Comme nts Streptococcus pyogenes (group A) antigen (test code Negative Ne gative = 32614-3) LYUDMILA (test code = LYUDMILA) Performed on IDNow. Lab Interpretation (test code = 06855-5) Normal [facility]2021-04-27 00:53:40 Test Item Value Reference Range Interpretation Comments APPEARANCE (test code = Clear Clear 5601817315) COLOR (test code = Straw Yellow A 1318569510) PH (test code = 4.8-8.0 9469729219) SP GRAVITY (test code = 1.003-1.030 0262164128) GLU U QUAL (test code = Normal Normal 4228846022) BLOOD (test code = Negative Negative 3199736521) KETONES (test code = Negative Negative 1658531199) PROTEIN (test code = Negative Negative 2887-8) UROBILIN (test code = Normal Normal 4581690899) BILIRUBIN (test code = Negative Negative 5427524091) NITRITE (test code = Negative Negative 1159910123) LEUK ADALI (test code = Negative Negative 4808480106) RBC/HPF (test code = <1 See_Comment [Autom ated message] 7854239695) The system [employer] generated this result transmitted ref erence range: 0 - 3 HP F. The reference range was not used to int erpret this result as normal/abnormal . WBC/HPF (test code = <1 See_Comment [Autom ated message] 4426058973) The system [employer] generated this result transmitted ref erence range: 0 - 5 HP F. The reference range was not used to int erpret this result as normal/abnormal . BACTERIA (test code = Negative Negative 0803821936) Lab Interpretation (test Abnormal code = 57745-5) [facility] [id number] 22:39:08 Test Item Value Reference Range Interpretation Comments TROPONIN I (test 0.000 ng/mL See_Comment [Automated code = 1611555313) message] The system which generated this result transmitted reference range : <=0.034. The reference range was not used to interpret this result as normal/abnormal . LYUDMILA (test code = Equal or Less than LYUDMILA) 0.034 ng/ml---Normal ?Note: Cardiac troponin begins to rise 3-4 hours after the onset of ischemia. Repeat in 4-6 hours if the sample was drawn within 3-4 hours of the onset of the symptom and found normal. Between 0.035 and 0.120 ng/mL--- Borderline. Questionable myocardial injury or necrosis ? ?Note: Serial measurement may be necessary to confirm or exclude the diagnosis of myocardial injury or necrosis; Clinical correlation (symptoms, EKGs, imaging studies, and others) required; Repeat in 4-6 hours if clinically indicated. ? Equal or Higher than 0.121 ng/mL---Abnormal. Myocardial Injury or Necrosis Likely ? Biotin has been reported to cause a negative bias, interpret results relative to patient's use of biotin. ? Lab Interpretation Normal (test code = 66957-8) [facility] [id number] 21:51:20 Test Item Value Reference Range Interpretation Comments TROPONIN I (test 0.001 ng/mL See_Comment [Automated code = 6831153946) message] The system which generated this result transmitted reference range : <=0.034. The reference range was not used to interpret this result as normal/abnormal . LYUDMILA (test code = Equal or Less than LYUDMILA) 0.034 ng/ml---Normal ?Note: Cardiac troponin begins to rise 3-4 hours after the onset of ischemia. Repeat in 4-6 hours if the sample was drawn within 3-4 hours of the onset of the symptom and found normal. Between 0.035 and 0.120 ng/mL--- Borderline. Questionable myocardial injury or necrosis ? ?Note: Serial measurement may be necessary to confirm or exclude the diagnosis of myocardial injury or necrosis; Clinical correlation (symptoms, EKGs, imaging studies, and others) required; Repeat in 4-6 hours if clinically indicated. ? Equal or Higher than 0.121 ng/mL---Abnormal. Myocardial Injury or Necrosis Likely ? Biotin has been reported to cause a negative bias, interpret results relative to patient's use of biotin. ? Lab Interpretation Normal (test code = 72973-3) [facility] [id number] 21:39:24 Test Item Value Reference Range Interpretation Comments NT-proBNP (test code 18 pg/mL See_Comment [Autom ated = 9538936025) message] The system which generated this result transmitted reference range : <=125. The reference range was not used to interpret this result as normal/abnormal . LYUDMILA (test code = LYUDMILA) Biotin has been reported to cause a negative bias, interpret results relative to patient's use of biotin. Lab Interpretation Normal (test code = 33469-2) [facility] (ALB, T.PRO, BILI T, BU/BC, ALT, AST, ALK PHOS)2020-11-25 21:30:41 Test Item Value Reference Range Interpretation Comments TOTAL BILI (test code = 6974375073) 0.5 mg/dL 0.1-1.1 BILI UNCON (test code = 8675176108) 0.4 mg/dL 0.1-1.1 BILI CONJ (test code = 4214950828) 0.0 mg/dL 0.0-0.3 T PROTEIN (test code = 5170518958) 7.2 g/dL 6.3-8.2 ALBUMIN (test code = 1125070015) 4.2 g/dL 3.5-5.0 ALK PHOS (test code = 7982457788) 83 U/L 34-122 ALTv (test code = 1742-6) 15 U/L 5-35 AST(SGOT) (test code = 8072879663) 23 U/L 13-40 Lab Interpretation (test code = Normal 27115-4) [facility] Metabolic Panel (NA, K, CL, CO2, GLUCOSE, BUN, CREATININE, CA)2020-11-25 21:30:20 Test Item Value Reference Range Interpretation Comments NA (test code = 137 mmol/L 135-145 5046902432) K (test code = 3.2 mmol/L 3.5-5.0 L 5973295385) CL (test code = 106 mmol/L 98-108 7171204563) CO2 TOTAL (test code = 23 mmol/L 23-31 1492485999) AGAP (test code = 2-16 6361086477) BUN (test code = 4 mg/dL 7-23 L 3530056033) GLUCOSE (test code = 167 mg/dL 70-110 H 9092093238) CREATININE (test code = 0.60 mg/dL 0.50-1.04 8269820147) CALCIUM (test code = 8.9 mg/dL 8.6-10.6 6580604449) eGFR Calculation mL/min/1.73m2 (Non-) (test code = 8396211424) eGFR Calculation mL/min/1.73m2 () (test code = 9091025745) LYUDMILA (test code = LYUDMILA) Association of Glomerular Filtration Rate (GFR) and Staging of Kidney Disease* + --+ --+ ------+| GFR (mL/min/1.73 m2) ?| With Kidney Damage ?| ?Without Kidney Damage+ --------+ --------+ +| ?>90 ?| ?Stage one ?| ? Normal ?+ ---+ ---+ -------+| ?60-89 ?| ?Stage two ?| ? Decreased GFR ? + --+ --+ ------+| ?30-59 ?| ?Stage three ?| ? Stage three ? + --+ --+ ------+| ?15-29 ?| ?Stage four ? | ? Stage four ?+ ---+ ---+ -------+| ?<15 (or dialysis) ? ?| ?Stage five ? | ? Stage five ?+ ---+ ---+ -------+ *Each stage assumes the associated GFR level has been in effect for at least three months. ?Stages 1 to 5, with or without kidney disease, indicate chronic kidney disease. Notes: Determination of stages one and two (with eGFR >59mL/min/1.73 m2) requires estimation of kidney damage for at least three months as defined by structural or functional abnormalities of the kidney, manifested by either:Pathological abnormalities or Markers of kidney damage (including abnormalities in the composition of the blood or urine or abnormalities in imaging tests). Lab Interpretation Abnormal (test code = 70041-8) [facility] Center[facility] [id number] 21:30:20 Test Item Value Reference Range Interpretation Comments LIPASE (test code = 6333960540) 73 U/L 0-220 Lab Interpretation (test code = Normal 64950-0) [facility] CenterChes 1 [id number] 21:02:07 No acute cardiopulmonary abnormality. Preliminary Report Dictated by Resident: Stephen Keith MD., have reviewed this study and agree with theabove report.EXAM: XR CHEST 1 VW HISTORY: 40 years-old Female; chest pain sharp in the center of chest TECHNIQUE: Single frontal view COMPARISON: CT from 10/12/2017 FINDINGS: The lungs are clear and well-expanded. No pleural effusion or pneumothorax. The cardiomediastinal silhouette is normal. No acute osseous abnormality. Screw and plate fixation of the left humerusis partially visualized. [facility], Radiant Results Inft User - 11/25/2020 4:03 PM CDTEXAM: XR CHEST 1 VWHISTORY: 40 years-old Female; chest pain sharp in the center of chest TECHNIQUE: Single frontal viewCOMPARISON: CT from 10/12/2017FINDINGS:The lungs are clear and well-expanded. No pleural effusion or pneumothorax.The cardiomediastinal silhouette is normal. No acute osseous abnormality. Screw and plate fixation of the left humerusis partially visualized.IMPRESSIONNo acute cardiopulmonary abnormality.Preliminary Report Dictated by Resident: Stephen Hidalgo MD., have reviewed this study and agree with theabove report.[facility] with Differential 2020-11-25 20:57:54 Test Item Value Reference Range Interpretation Comments WBC (test code = See_Comment [Automated 9090-2) message] The sy stem which generated this result transmitted reference range : 4.30 - 11.10 10*3/?L. The reference range was not used to interpret this result as normal/abnormal . RBC (test code = See_Comment [Automated 789-8) message] The sy stem which generated this result transmitted reference range : 3.93 - 5.25 10*6/?L. The reference range was not used to interpret this result as normal/abnormal . HGB (test code = 13.3 g/dL 11.6-15.0 718-7) HCT (test code = 39.5 % 35.7-45.2 4544-3) MCV (test code = 94.3 fL 80.6-95.5 787-2) MCH (test code = 31.7 pg 25.9-32.8 785-6) MCHC (test code = 33.7 g/dL 31.6-35.1 786-4) RDW-SD (test code = 42.4 fL 39.0-49.9 24867-8) RDW-CV (test code = 12.2 % 12.0-15.5 788-0) PLT (test code = See_Comment [Automated 777-3) message] The sy stem which generated this result transmitted reference range : 166 - 358 10*3/ ?L. The reference r kanika was not used to interpret this result as normal/abnormal . MPV (test code = 8.9 fL 9.5-12.9 L 79560-7) NRBC/100 WBC (test See_Comment [Automat ed code = 3414475386) message] The system which generated this result transmitted reference range : 0.0 - 10.0 /100 WBCs. The refer ence range was not u sed to interpret th is result as normal/abnormal . NRBC x10^3 (test code <0.01 See_Comment [Auto mated = 5723585186) message] The s ystem which generated this result transmitted reference range : 10*3/?L. The reference range was not used to interpret this result as normal/abnormal . GRAN MAT (NEUT) % 68.9 % (test code = 770-8) IMM GRAN % (test code 0.50 % = 8755232561) LYMPH % (test code = 22.0 % 736-9) MONO % (test code = 5.7 % 5905-5) EOS % (test code = 2.6 % 713-8) BASO % (test code = 0.3 % 706-2) GRAN MAT x10^3(ANC) 4.49 10*3/uL 1.88-7.09 (test code = 7151465064) IMM GRAN x10^3 (test 0.03 10*3/uL 0.00-0.06 code = 5347899846) LYMPH x10^3 (test code 1.43 10*3/uL 1.32-3.29 = 731-0) MONO x10^3 (test code 0.37 10*3/uL 0.33-0.92 = 742-7) EOS x10^3 (test code = 0.17 10*3/uL 0.03-0.39 711-2) BASO x10^3 (test code <0.03 0.01-0.07 = 704-7) Lab Interpretation Abnormal (test code = 76053-2) [facility] PEL[facility] [id number] 20:28:00 FAX: Mari Parry,Ebonie Suarez MD [place]: EM St: REG Name: RENEE PARRISH [facility] : 1980 Age/S: 40/F [address] [facility] Unit: [id number] Loc: E.ERS2 [place], [place] Phys: [place] [id number] Acct: [id number] Dis Date: Status: REG ER PHONE #: [phone] Exam Date: 04/11/20202012 FAX #: [phone] Reason: PAIN EXAMS: CPT CODE: [id number] CT ABD PELVIS W/CONT [id number] LOCATION: T18 EXAM: CT ABDOMEN AND PELVIS [...] noted. Spleen, adrenal glands and pancreas normal. Gallbladderis unremarkable. No biliary distention. Portal vasculature is patent. Kidneys enhance symmetrically. No focal abnormality or hydronephrosis is seen. There is no hydroureter. Urinary bladder appearance. Uterus and adnexal structures are age- appropriate in appearance. The appendix is normal. There is no evidence for acute appendicitis. No freeair or free fluid is present. No diverticulosis or evidence of colitis is seen.Abdominal aorta is normal in caliber. IVC is normal. Bones peripheral soft tissues are unremarkable. IMPRESSION: Fatty liver. Normal appendix. No bowel obstruction. No diverticulosis or evidence of colitis. at 2027 Reported and signed by: Kip Jeffery M.D. CC: Ebonie Yun MD Technologist: RAH GEE Trnscrd Dt/Tm: 04/11/2020 (2027) [id number] Orig Print D/T: S: 04/11/2020 (2031 PAGE 1 Signed ReportCOMPREHENSIVE METABOLIC [id number] 18:37:00 Test Item Value Reference Range Interpretation [...] N BLOOD UREA NITROGEN (test code = 5 mg/dl 7.0-18.0 L BUN) CREATININE (test code = CREAT) 0.89 mg/dL 0.60-1.30 N GFR NON BLACK (test code = 75 mL/min 105-110 L GFRNONBLACK) GFR BLACK (test code = GFRBLACK) 91 mL/min 127-133 L TOTAL PROTEIN (test code = PROT) 7.4 gm/dL 6.4-8.2 N ALBUMIN (test code = ALB) 3.6 gm/dl 3.2-4.7 N CALCIUM (test code = CA) 9.3 mg/dl 8.0-10.5 N BILIRUBIN TOTAL (test code = 0.3 mg/dl 0.0-1.0 N BILT) SGOT/AST (test code = AST) 36 Units/L 15.0-37.0 N SGPT/ALT (test code = ALT) 40 Units/L 12.0-78.0 N ALKALINE PHOSPHATASE TOTAL (test 90 Units/L 50.0-136.0 N code = ALKP) [id number] 18:37:00 Test Item Value Reference Range Interpretation Comments LIPASE (test code = LIP) 140 Units/L 65.0-230.0 N [id number] 18:37:00 Test Item Value Reference Range Interpretation Comments ALCOHOL (test code 0.00 gm/dL 0.00-0.00 N ETHYL ALC OHOL VALUES - = ALC) INTERPRETATION: 0.050 GM/DL - NOT INT OXICATED 0.100 GM/DL - INTOXICATED 0.3 50-0.450 GM/DL - SEVEREL Y INTOXICATED 0.5 50 GM/DL- FATAL INTOXICAT ION DRUGS OF ABUSE SCREEN [id number] 18:33:00 Test Item Value Reference Range Interpretation [...] (test NEGATIVE NEGATIVE code = [place]) URINALYSIS [id number] 18:32:00 Test Item Value Reference Range Interpretation [...] code = TRACE NONE BACU) UR HCG [id number] 18:32:00 Test Item Value Reference Range Interpretation Comments UR HCG QUAL (test code = HCGQLU) NEGATIVE NEGATIVE URINALYSIS [id number] 18:31:00 Test Item Value Reference Range Interpretation [...] (test code = NONE BACU) UR HCG [id number] 18:31:00 Test Item Value Reference Range Interpretation Comments UR HCG QUAL (test code = HCGQLU) NEGATIVE COMPREHENSIVE METABOLIC [id number] 18:27:00 Test Item Value Reference Range Interpretation [...] TOTAL (test Units/L 50.0-136.0 code = ALKP) [id number] 18:27:00 Test Item Value Reference Range Interpretation Comments LIPASE (test code = LIP) Units/L 65.0-230.0 [id number] 18:27:00 Test Item Value Reference Range Interpretation Comments ALCOHOL (test code = ALC) gm/dL 0.00-0.00 CBC W/AUTO [id number] 18:16:00 Test Item Value Reference Range Interpretation [...] (test code = BA#) 0.1 K/mm3 0.0-0.2 N"
[2021-07-23] MEDS ORDERED: predniSONE 20 MG TAB ONE (03:04)
[2021-07-23] MEDS ORDERED: ALBUTEROL 2.5 MG/3 ML NEB SOL ONE (03:05)
[2021-07-23] MEDS ORDERED: IPRATROPIUM BROM 0.5MG/2.5ML ONE (03:05)
[2021-07-23] MEDS ORDERED: IBUPROFEN 200 MG TAB PO ONE (03:21)
[2021-07-23 04:12] LABS: SARS-COV-2 RT PCR NEGATIVE (NEGATIVE)
--- NOTE | 2021-07-23 04:57 | EDPHYS ---
Physician Documentation [facility] Name: Susana Tamayo Age: 41 yrs Sex: Female : 1980 Arrival Date: 07/23/2021 Time: 01:44 Bed 18 Private MD: CALVIN Physician Alex Steele HPI: 07/23 02:45 This 41 yrs old Female presents to ER via Ambulatory with complaints of Sore Throat, mh7 Breathing Difficulty, Smoke Inhalation. 02:45 The patient presents with sore throat. The patient describes throat pain as mh7 intermittent. Onset: The symptoms/episode began/occurred 2 day(s) ago. Severity of symptoms: At their worst the symptoms were mild, last night, in the emergency department the symptoms are unchanged. Modifying factors: The symptoms are alleviated by nothing, the symptoms are aggravated by nothing. Associated signs and symptoms: Pertinent positives: Sore throat Wheezing started after smoke exposure at work last night, Pertinent negatives chest pain, chills, cough, diarrhea, dysphagia, earache, fever, flu-like symptoms, headache, nausea, rhinorrhea, vomiting. Patient reports having sore throat for 2 days. 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 She states this caused her to have wheezing and exacerbation of her asthma. She denies any fever or cough.. 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 - Social history:: Smoking status: Patient reports the use of cigarette tobacco products, smokes one-half pack cigarettes per day. ROS: 02:45 Constitutional: Negative for fever, chills, and weight loss, Eyes: Negative for injury, mh7 pain, redness, and discharge, Neck: Negative for injury, pain, and swelling, Cardiovascular: Negative for chest pain, palpitations, and edema, Abdomen/GI: Negative for abdominal pain, nausea, vomiting, diarrhea, and constipation, Back: Negative for injury and pain, : Negative for injury, bleeding, discharge, and swelling, MS/Extremity: Negative for injury and deformity, Skin: Negative for injury, rash, and discoloration, Neuro: Negative for headache, weakness, numbness, tingling, and seizure, Psych: Negative for depression, anxiety, suicide ideation, homicidal ideation, and hallucinations, Allergy/Immunology: Negative for hives, rash, and allergies, Endocrine: Negative for neck swelling, polydipsia, polyuria, polyphagia, and marked weight changes, Hematologic/Lymphatic: Negative for swollen nodes, abnormal bleeding, and unusual bruising. Exam: 02:45 Constitutional: This is a well developed, well nourished patient who is awake, alert, mh7 and in no acute distress. Head/Face: Normocephalic, atraumatic. Eyes: Pupils equal round and reactive to light, extra-ocular motions intact. Lids and lashes normal. Conjunctiva and sclera are non-icteric and not injected. Cornea within normal limits. Periorbital areas with no swelling, redness, or edema. Neck: Trachea midline, no thyromegaly or masses palpated, and no cervical lymphadenopathy. Supple, full range of motion without nuchal rigidity, or vertebral point tenderness. No Meningismus. Chest/axilla: Normal chest wall appearance and motion. Nontender with no deformity. No lesions are appreciated. Cardiovascular: Regular rate and rhythm with a normal S1 and S2. No gallops, murmurs, or rubs. Normal PMI, no JVD. No pulse deficits. 02:45 Abdomen/GI: Soft, non-tender, with normal bowel sounds. No distension or tympany. No guarding or rebound. No evidence of tenderness throughout. Back: No spinal tenderness. No costovertebral tenderness. Full range of motion. Skin: Warm, dry with normal turgor. Normal color with no rashes, no lesions, and no evidence of cellulitis. MS/ Extremity: Pulses equal, no cyanosis. Neurovascular intact. Full, normal range of motion. Neuro: Awake and alert, GCS 15, oriented to person, place, time, and situation. Cranial nerves II-XII grossly intact. Motor strength 5/5 in all extremities. Sensory grossly intact. Cerebellar exam normal. Normal gait. Psych: Awake, alert, with orientation to person, place and time. Behavior, mood, and affect are within normal limits. 02:45 Respiratory: the patient does not display signs of respiratory distress, Respirations: prolonged exhalation, that is mild, Breath sounds: wheezing: expiratory that is mild, is heard diffusely, Respiratory rate: 16 02:45 ENT: External ear(s): are unremarkable, Ear canal(s): are normal, clear, TM's: are mh7 normal, Nose: is normal, Mouth: is normal, Posterior pharynx: Airway: normal, Tonsils: are normal in appearance, Uvula: normal, swelling, is not appreciated, erythema, that is mild, exudate, that is mild, peritonsillar mass, is not appreciated, pooling of secretions, is not appreciated, Dental exam: normal, Voice: is normal. Vital Signs: 02:21 BP 132 / 82; Pulse 88; Resp 16 S; Temp 98.2(O); Pulse Ox 97% on R/A; Weight 83.91 kg bb (R); Height 5 ft. 9 in. (175.26 cm) (R); Pain 8/10; 03:00 BP 131 / 81; Pulse 82; Resp 20; Temp 98.2; Pulse Ox 98% on R/A; cc4 04:00 BP 109 / 70; Pulse 84; Resp 20; Pulse Ox 99% on R/A; cc4 05:15 BP 118 / 65; Pulse 83; Resp 21; Temp 97.8(O); Pulse Ox 98% on R/A; cc4 02:21 Body Mass Index 27.32 (83.91 kg, 175.26 cm) bb MDM: 04:53 Differential diagnosis: Allergic rhinitis, bronchitis, pharyngitis, uvulitis, viral mh7 syndrome Asthma exacerbation. Data reviewed: vital signs, nurses notes, lab test result(s), Flu: negative Covid negative, strep negative. 04:55 Data interpreted: Pulse oximetry: on room air is 97 %. Interpretation: normal. mh7 Counseling: I had a detailed discussion with the patient and/or guardian regarding: the historical points, exam findings, and any diagnostic results supporting the discharge/admit diagnosis, lab results, radiology results, the need for outpatient follow up. Response to treatment: the patient's symptoms have resolved after treatment, the patient's blood pressure is in an acceptable range, mental status has returned to baseline, the patient no longer shows bradycardia, the patient is not short of breath, the patient is not tachycardic, the patient's pain is gone, the patient's temperature has normalized. 04:57 Patient medically screened. [facility] 07/23 02:44 Order name: Rapid Strep; Complete Time: 04:11 mh7 07/23 03:30 Order name: COVID-19/FLU A+B; Complete Time: 04:29 EDMS 07/23 04:09 Order name: Throat Culture EDMS Administered Medications: 03:05 Drug: predniSONE 60 mg Route: PO; cc4 05:15 Follow up: Response: No adverse reaction; Wheezing diminished cc4 03:05 Drug: Albuterol 2.5 mg Route: Inhalation; cc4 05:15 Follow up: Response: No adverse reaction; Wheezing diminished cc4 03:05 Drug: AtroVENT (ipratropium) Aerosol 0.5 mg Route: Inhalation; cc4 05:46 Follow up: Response: No adverse reaction; Wheezing diminished cc4 03:30 Drug: Motrin (ibuprofen) 600 mg Route: PO; cc4 05:15 Follow up: Response: No adverse reaction; Pain is decreased cc4 Disposition Summary: 07/23/21 04:57 Discharge Ordered Location: Home [facility] Problem: an acute exacerbation [facility] Symptoms: have improved [facility] Condition: Stable [facility] Diagnosis - Asthma Exacerbation [facility] - Pharyngitis [facility] Followup: [facility] - With: Private Physician - When: 1 - 2 days - Reason: Worsening of condition, Recheck today's complaints, Continuance of care, Re-evaluation by your physician Discharge Instructions: - Discharge Summary Sheet [facility] - Asthma, Adult, Iujh-[id number] [facility] - Pharyngitis, [id number] [facility] Forms: - Medication Reconciliation Form [facility] - Thank You Letter [facility] - Antibiotic Education [facility] - Prescription Opioid Use [facility] Prescriptions: - albuterol sulfate 90 mcg/actuation Inhalation HFA aerosol inhaler - inhale 2 puff by INHALATION route every 4-6 hours; 1 Inhaler; Refills: 0, [facility] Product Selection Permitted - Zithromax Z-Cortez 250 mg Oral Tablet - take 1 tablet by ORAL route as directed for 5 days Day 1 - take two (2) tablets [facility] one time. Day 2, 3, 4 , 5 take one (1) tablet once daily.; 6 tablet; Refills: 0, Product Selection Permitted - Prednisone 20 mg Oral Tablet - take 2 tablets by ORAL route once daily for 5 days; 10 tablet; Refills: 0, mh7 Product Selection Permitted Signatures: Dispatcher [employer] EDKourtney Akhtar, RN RN bb Alex Steele MD MD 7 Rae Nelson RN RN cc4 Corrections: (The following items were deleted from the chart) 03:30 02:44 Influenza Screen (A \T\ B)+BA.LAB.BRZ ordered. EDMS EDMS 03:30 02:44 CORONAVIRUS+MR.LAB.KRISTIN ordered. EDMS EDMS
--- NOTE | 2021-07-23 04:57 | ER ---
Nurse's Notes [facility] Name: Susana Tamayo Age: 41 yrs Sex: Female : 1980 Arrival Date: 07/23/2021 Time: 01:44 Bed 18 Private MD: Diagnosis: Asthma Exacerbation;Pharyngitis Presentation: 07/23 02:21 Chief complaint: Patient states: she started having some hoarseness, sore throat for a bb few days but tonight was exposed to smoke at work and is having difficulty breathing. Coronavirus screen: difficulty breathing, sore throat. Ebola Screen: No symptoms or risks identified at this time. Initial Sepsis Screen: Does the patient meet any 2 criteria? No. Patient's initial sepsis screen is negative. Does the patient have a suspected source of infection? No. Patient's initial sepsis screen is negative. Risk Assessment: Do you want to hurt yourself or someone else? Patient reports no desire to harm self or others. Onset of symptoms was July 23, 2021. 02:21 Method Of Arrival: Ambulatory bb 02:21 Acuity: DIMPLE 3 bb Triage Assessment: 03:00 General: Appears in no apparent distress. Behavior is calm, cooperative. cc4 05:37 EENT: Eyes clear. Nares are clear Throat is reddened Reports having sore throat.. cc4 05:38 Pain: Complains of pain in head and throat Pain does not radiate. Pain currently is 8 cc4 out of 10 on a pain scale. at worst was 10 out of 10 on a pain scale. level that patient reports is acceptable is 0 out of 10 on a pain scale. Quality of pain is described as aching, "sore" Pain began 2-3 days ago. 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 - Social history:: Smoking status: Patient reports the use of cigarette tobacco products, smokes one-half pack cigarettes per day. Screenin:00 Abuse screen: Denies threats or abuse. Nutritional screening: No deficits noted. cc4 Tuberculosis screening: No symptoms or risk factors identified. Fall Risk None identified. Assessment: 03:00 Respiratory: Airway is patent Respiratory effort is even, unlabored, Respiratory cc4 pattern is regular, symmetrical, Breath sounds with wheezes bilaterally. Vital Signs: 02:21 BP 132 / 82; Pulse 88; Resp 16 S; Temp 98.2(O); Pulse Ox 97% on R/A; Weight 83.91 kg bb (R); Height 5 ft. 9 in. (175.26 cm) (R); Pain 8/10; 03:00 BP 131 / 81; Pulse 82; Resp 20; Temp 98.2; Pulse Ox 98% on R/A; cc4 04:00 BP 109 / 70; Pulse 84; Resp 20; Pulse Ox 99% on R/A; cc4 05:15 BP 118 / 65; Pulse 83; Resp 21; Temp 97.8(O); Pulse Ox 98% on R/A; cc4 02:21 Body Mass Index 27.32 (83.91 kg, 175.26 cm) bb ED Course: 01:44 Patient arrived in ED. bp1 02:23 Triage completed. bb 02:23 Arm band placed on Patient placed in an exam room, on a stretcher, on pulse oximetry. bb Family accompanied patient. 02:33 Alex Steele MD is Attending Physician. [facility] 02:53 Rae Nelson, RN is Primary Nurse. cc4 03:00 Patient has correct armband on for positive identification. Placed in gown. Bed in low cc4 position. Call light in reach. Side rails up X 1. cafeteria monitor on. Pulse ox on. NIBP on. 03:27 Rapid Strep Sent. cc4 05:09 Throat Culture Sent. cc4 05:15 No provider procedures requiring assistance completed. cc4 05:15 Patient did not have IV access during this emergency room visit. cc4 Administered Medications: 03:05 Drug: predniSONE 60 mg Route: PO; cc4 05:15 Follow up: Response: No adverse reaction; Wheezing diminished cc4 03:05 Drug: Albuterol 2.5 mg Route: Inhalation; cc4 05:15 Follow up: Response: No adverse reaction; Wheezing diminished cc4 03:05 Drug: AtroVENT (ipratropium) Aerosol 0.5 mg Route: Inhalation; cc4 05:46 Follow up: Response: No adverse reaction; Wheezing diminished cc4 03:30 Drug: Motrin (ibuprofen) 600 mg Route: PO; cc4 05:15 Follow up: Response: No adverse reaction; Pain is decreased cc4 Outcome: 04:57 Discharge ordered by . soo 05:15 Discharged to home ambulatory. cc4 05:15 Condition: improved 05:15 Discharge instructions given to patient, Instructed on discharge instructions, follow up and referral plans. medication usage, Demonstrated understanding of instructions, follow-up care, medications, Prescriptions given X 3. 05:48 Patient left the ED. cc4 Signatures: Kourtney Wiley, RN RN Sarah Partida Maurice, MD MD [facility] Rae Nelson RN RN cc4 Corrections: (The following items were deleted from the chart) 03:30 03:27 CORONAVIRUS+MR.LAB.BRZ drawn and sent. cc4 EDMS 03:30 03:27 Influenza Screen (A \\T\\ B)+BA.LAB.BRZ drawn and sent. cc4 EDMS
[2021-07-23 06:23] VITALS: BP 118/65; TEMP 97.8; O2SAT 98
== END 2021-07-23 05:48 | disposition home or self-care (01) ==
LOC: ER 01:40
DX: J45.901 Unspecified asthma with (acute) exacerbation (principal); F41.8 Other specified anxiety disorders; F17.210 Nicotine dependence, cigarettes, uncomplicated; Z88.5 Allergy status to narcotic agent; Z20.822 Contact with and (suspected) exposure to COVID-19
CPT/HCPCS: 0240U; 87070; 87081; 99285; J7512

== ENCOUNTER 2021-09-09 11:32 | Emergency (ER) | payer SELFPAY ==
--- OUTSIDE RECORDS SUMMARY | 2021-09-09 11:36 | XMS REPORT | Continuity of Care Document ---
:1980 Author Organization [facility] t Address [address] [place] [address] Care Team Providers Name Role Phone Curt Kearney Primary Care Physician Tomas Suh DO Attending Clinician Bridgette SHEARER R Attending Clinician Doctor Unassigned, Name Attending Clinician Unavailable Therapy, Covid Infusion Attending Clinician Unavailable Alessandro TORRES, Nia Attending Clinician Nia FRANCOIS Attending Clinician Unavailable Noam WATER SOFTENER SERVICE SUPERVISOR Attending Clinician Thomas Harris Attending Clinician Frank LAZO Attending Clinician Physician, Primary or Family Admitting Clinician Unavailabl e Payers Payer Name Policy Type Policy Number Effective Date Expiration Date S ource Problems Condition Condition Condition Status Onset Resolution Last Treating Co mments Source Name Details Category Date Date Treatment Clinician Date Vesicular Vesicular Disease Active Uni vers palmoplant palmoplant 7-20 it y of ar eczema [place] 00 Medical Branch Allergies, Adverse Reactions, Alerts Allergy Allergy Status Severity Reaction(s) Onset Inactive Treating Comm ents Source Name Type Date Date Clinician No Known DA Active U [facility] 04-11 [place] 00:[facility]: d 00 [facility] No Known DA Active U [facility] Allergie 04-11 [place] 00:[place]: d 00 [facility] PROPOXYP DRUG Active N/V Univers HENE 2-08 ity of N-ACETAM 00:00: [place] INOPHEN 00 [facility] Er Propoxyp Propensi Active Nausea Univer s hene ty to and/or 2-08 ity of N-Acetam adverse Vomiting 00:00: [place] inophen reaction [address] [place] [address] Social History Social Habit Start Date Stop Date Quantity Comments Source History of tobacco Cigarette Smoker University of use [facility] Exposure to Not sure University of SARS-CoV-2 (event) [facility] Cigarettes smoked 2021-05-03 2021-05-03 Univers ity of current (pack per 00:00:00 00:00:00 ) - Reported [place] Cigarette 2021-05-03 2021-05-03 University of pack-years 00:00:00 00:00:00 [facility] Tobacco use and 2021-05-03 2021-05-03 Never used Universit y of exposure 00:00:00 00:00:00 [facility] Alcohol intake 2021-05-03 2021-05-03 University of 00:00:00 00:00:00 [facility] Sex Ass[birth year] At [birth year] Universit y of 00:00:00 00:00:00 [facility] Smoking Status Start Date Stop Date Source Current every day smoker 2021-05-03 00:00:00 Uni versity of [facility] Medications Ordered Filled Start Stop Current Ordering Indication Dosage Frequency Signature Comments Components Source Medication Medication Date Date Medication? Clinician (SIG) Name Name casirivimab 2020- No [id number] 1200mg Univers -imdevimab 04-22 ity of (REGEN-COV 19:30: 19:24 [place] (EUA)) 00 :00 Medical 1,200 mg in Branch NaCl 0.9% (NS) 60 mL IV infusion casirivimab 2020- No [id number] 1200mg 1,200 mg, Univers -imdevimab 04-22 IV ity of (REGEN-COV 19:30: 19:24 [place]fusion, [place] (EUA[place] 00 :00 ONCE, Medical 1,200 mg in Administer Br anch NaCl 0.9% over 20 (NS) 60 mL Minutes, IV infusion [facility] 04/22/21 at 1430, For 1 dose
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 [place] 4 mg 1230, Routine dexamethaso 2020- No [...] Restricted medication : EMERGENCY ROOM, ondansetron Yes [id number] 4mg Take 1 Univers (ZOFRAN 04-16 tablet by ity of ODT) 4 mg 00:00: mouth [place] disintegrat 00 every 8 Medic al ing tablet (eight) Branch hours as needed for Nausea and Vomiting (N/V). bromphenira Yes [id number] 5mL Take 5 mL Univers mine-pseudo 04-16 by mouth 4 it y of ephedrine-D 00:00: (four[place] (BROMFED 00 times Medical DM) 2-30-10 daily as Bran ch mg/5 mL needed for syrup Congestion /Allergies . ondansetron 2021-0 Yes [id number] 4mg Take 1 Univers (ZOFRAN 8-13 tablet by ity of ODT) 4 mg 00:00: mouth [place] disintegrat 00 every 8 Medic al ing tablet (eight) Branch hours as needed for Nausea and Vomiting (N/V). bromphenira 2021-0 Yes [id number] 5mL Take 5 mL Univers mine-pseudo 8-13 by mouth 4 it y of ephedrine-D 00:00: (four[place] (BROMFED 00 times Medical DM) 2-30-10 daily as Bran ch mg/5 mL needed for syrup Congestion /Allergies . ondansetron 1-0 Yes [id number] 4mg Take 1 Univers (ZOFRAN 8-13 tablet by ity of ODT) 4 mg 00:00: mouth [place] disintegrat 00 every 8 Medic al ing tablet (eight) Branch hours as needed for Nausea and Vomiting (N/V). bromphenira 2021-0 Yes [id number] 5mL Take 5 mL Univers mine-pseudo 8-13 by mouth 4 it y of ephedrine-D 00:00: (four[place] (BROMFED 00 times Medical DM) 2-30-10 daily as Bran ch mg/5 mL needed for syrup Congestion /Allergies . ondansetron 1-0 Yes [id number] 4mg Take 1 Univers (ZOFRAN 8-13 tablet by ity of ODT) 4 mg 00:00: mouth [place] disintegrat 00 every 8 Medic al ing tablet (eight) Branch hours as needed for Nausea and Vomiting (N/V). bromphenira 2021-0 Yes [id number] 5mL Take 5 mL Univers mine-pseudo 8-13 by mouth 4 it y of ephedrine-D 00:00: (four[place] (BROMFED 00 times Medical DM) 2-30-10 daily as Bran ch mg/5 mL needed for syrup Congestion /Allergies . ondansetron 2021-0 Yes [id number] 4mg Take 1 Univers (ZOFRAN 8-13 tablet by ity of ODT) 4 mg 00:00: mouth [place] disintegrat 00 every 8 Medic al ing tablet (eight) Branch hours as needed for Nausea and Vomiting (N/V). bromphenira Yes [id number] 5mL Take 5 mL Univers mine-pseudo 8-13 by mouth 4 it y of ephedrine-D 00:00: (four[place] (BROMFED 00 times Medical DM) 2-30-10 daily as Bran ch mg/5 mL needed for syrup Congestion /Allergies . ondansetron Yes [id number] 4mg Take 1 Univers (ZOFRAN 8-13 tablet by ity of ODT) 4 mg 00:00: mouth [place] disintegrat 00 every 8 Medic al ing tablet (eight) Branch hours as needed for Nausea and Vomiting (N/V). bromphenira Yes [id number] 5mL Take 5 mL Univers mine-pseudo 8-13 by mouth 4 it y of ephedrine-D 00:00: (four[place] (BROMFED 00 times Medical DM) 2-30-10 daily as Bran ch mg/5 mL needed for syrup Congestion /Allergies . predniSONE 2020- No [id number] 40mg Take 2 Univers 20 mg 8-13 [...] Restricted medication : GENO VILLALOBOS ibuprofen Yes [id number] 600mg Take 1 Univers 600 mg 4-26 tablet by ity of tablet 00:00: mouth [place] 00 every 6 Medical (six) Branch hours as needed for Pain (scale 4-6). ibuprofen 2021-0 Yes [id number] 600mg Take 1 Univers 600 mg 4-26 tablet by ity of tablet 00:00: mouth [place] 00 every 6 Medical (six) Branch hours as needed for Pain (scale 4-6). ibuprofen 2020-0 Yes [id number] 600mg Take 1 Univers 600 mg 4-26 tablet by ity of tablet 00:00: mouth [place] 00 every 6 Medical (six) Branch hours as needed for Pain (scale 4-6). ibuprofen 2020-0 Yes [id number] 600mg Take 1 Univers 600 mg 4-26 tablet by ity of tablet 00:00: mouth [place] 00 every 6 Medical (six) Branch hours as needed for Pain (scale 4-6). ibuprofen 2020-0 Yes [id number] 600mg Take 1 Univers 600 mg 4-26 tablet by ity of tablet 00:00: mouth [place] 00 every 6 Medical (six) Branch hours as needed for Pain (scale 4-6). ibuprofen 2020-0 Yes [id number] 600mg Take 1 Univers 600 mg 4-26 tablet by ity of tablet 00:00: mouth [place] 00 every 6 Medical (six) Branch hours as needed for Pain (scale 4-6). ibuprofen 2020-0 Yes [id number] 600mg Take 1 Univers 600 mg 4-26 tablet by ity of tablet 00:00: mouth [place] 00 every 6 Medical (six) Branch hours as needed for Pain (scale 4-6). cephALEXin 2020- No [id number] 500mg Take 1 Univers 500 mg 4-26 [...] 325mg 325 mg, Unive rs tablet 325 11-25 03-24 Oral, ity of mg 21:30: 20:34 ONCE, [...] Branch tablet hours as needed (t). triamcinolo 2012- Yes [id number] Apply to [facility] 7-18 area(s) 2 ity of acetonide 00:00: (two) [place] (KENALOG) 00 times Medical 0.1 % daily. Branch ointment triamcinolo 2012- Yes [id number] Apply to Univers ne 7-18 area(s) 2 ity of acetonide 00:00: (two) [place] (KENALOG) 00 times Medical 0.1 % daily. Branch ointment triamcinolo 2012- Yes [id number] Apply to [facility] ne 7-18 area(s) 2 ity of acetonide 00:00: (two) [place] (KENALOG) 00 times Medical 0.1 % daily. Branch ointment triamcinolo 2012- Yes [id number] Apply to [facility] 7-18 area(s) 2 ity of acetonide 00:00: (two) [place] (KENALOG) 00 times Medical 0.1 % daily. Branch ointment triamcinolo 2012- Yes [id number] Apply to [facility] ne 7-18 area(s) 2 ity of acetonide 00:00: (two) [place] (KENALOG) 00 times Medical 0.1 % daily. Branch ointment triamcinolo 2012- Yes [id number] Apply to [facility] 7-18 area(s) 2 ity of acetonide 00:00: (two) [place] (KENALOG) 00 times Medical 0.1 % daily. Branch ointment triamcinolo 2012- Yes [id number] Apply to [facility] 7-18 area(s) 2 ity of acetonide 00:00: (two) [place] (KENALOG) 00 times Medical 0.1 % daily. Branch ointment triamcinolo Yes [id number] Apply to [facility] 7-18 area(s) 2 ity of acetonide 00:00: (two) [place] (KENALOG) 00 times Medical 0.1 % daily. Branch ointment Vital Signs Vital Name Observation Time Observation Value Comments Source Systolic blood 2021-05-03 17:27:00 127 mm[Hg] [facility] Diastolic blood 2021-05-03 17:27:00 74 mm[Hg] [facility] Heart rate 2021-05-03 17:27:00 94 [facility]min [facility] Body temperature 2021-05-03 17:27:00 37.11 Jeanette [facility] Respiratory rate 2021-05-03 17:27:00 16 /min [facility] Body height 2021-05-03 17:27:00 175.3 cm [facility] [place] [facility] Body weight 2021-05-03 17:27:00 68.04 kg [facility] [place] [facility] BMI 2021-05-03 17:27:00 22.15 kg/m2 [facility] [place] [facility] Oxygen saturation in 2021-05-03 17:27:00 97 /min University of Arterial blood by [facility] Pulse oximetry Branch Systolic blood 2021-04-22 20:25:00 99 mm[Hg] Univer sity of pressure [place] [facility] Diastolic blood 2021-04-22 20:25:00 64 mm[Hg] Unive rsity of pressure [place] [facility] Heart rate 2021-04-22 20:25:00 75 /min [facility]i ty [facility] [place] [facility] Body temperature 2021-04-22 20:25:00 36.5 Jeanette Univ ersity [facility] [place] [facility] Respiratory rate 2021-04-22 20:25:00 17 /min Univ ers[facility] [place] [facility] Oxygen saturation in 2021-04-22 20:25:00 99 /min University of Arterial blood by [facility] Pulse oximetry Branch Body height 2021-04-22 18:25:00 175.3 cm [facility] [place] [facility] Body weight 2021-04-22 18:25:00 84.823 kg [facility] [place] [facility] BMI 2021-04-22 18:25:00 27.62 kg/m2 [facility] [place] [facility] Systolic blood 2021-04-16 16:16:00 137 mm[Hg] Univer sity of [facility] [place] [facility] Diastolic blood 2021-04-16 16:16:00 68 mm[Hg] Unive rsity of pressure [place] [facility] Heart rate 2021-04-16 16:16:00 78 /min [facility] [place] [facility] Body temperature 2021-04-16 16:16:00 36.83 Jeanette [facility] ers[facility] [place] [facility] Respiratory rate 2021-04-16 16:16:00 18 /min Univ [facility] [place] [facility] Body height 2021-04-16 16:16:00 175.3 cm [facility] [place] [facility] Body weight 2021-04-16 16:16:00 80.74 kg [facility] [place] [facility] BMI 2021-04-16 16:16:00 26.29 kg/m2 [facility] [place] [facility] Oxygen saturation in 2021-04-16 16:16:00 97 /min University of Arterial blood by [facility] Pulse oximetry Branch Systolic blood 2020-12-29 00:00:00 123 mm[Hg] Univer sity of [facility] [place] [facility] Diastolic blood 2020-12-29 00:00:00 82 mm[Hg] Unive rsity of [facility] [place] [facility] Heart rate 2020-12-29 00:00:00 77 /min [facility]i ty [facility] [place] [facility] Respiratory rate 2020-12-29 00:00:00 16 /min Univ ersity [facility] [place] [facility] Oxygen saturation in 2020-12-29 00:00:00 99 /min University of Arterial blood by [facility] Pulse oximetry Branch Body temperature 2020-12-28 20:34:00 37 Jeanette Univ [facility] [place] [facility] Body weight 2020-12-28 20:34:00 68.04 kg [facility] [place] [facility] BMI 2020-12-28 20:34:00 22.81 kg/m2 [facility] [place] [facility] Systolic blood 2020-12-29 00:00:00 123 mm[Hg] Univer sity of [facility] [place] [facility] Diastolic blood 2020-12-29 00:00:00 82 mm[Hg] Unive rsity of pressure [place] [facility] Heart rate 2020-12-29 00:00:00 77 /min [facility] [place] [facility] Respiratory rate 2020-12-29 00:00:00 16 /min Univ [facility] [place] [facility] Oxygen saturation in 2020-12-29 00:00:00 99 /min University of Arterial blood by [facility] Pulse oximetry Branch Body temperature 2020-12-28 20:34:00 37 Jeanette [facility] [place] [facility] Body weight 2020-12-28 20:34:00 68.04 kg [facility] [place] [facility] BMI 2020-12-28 20:34:00 22.81 kg/m2 [facility] [place] [facility] Systolic blood 2020-11-25 22:00:00 125 mm[Hg] Univer sity of [facility] [place] [facility] Diastolic blood 2020-11-25 22:00:00 87 mm[Hg] Unive rsity of pressure [place] [facility] Heart rate 2020-11-25 22:00:00 89 /min [facility] [place] [facility] Respiratory rate 2020-11-25 22:00:00 19 /min Univ [facility] [place] [facility] Oxygen saturation in 2020-11-25 22:00:00 96 /min [facility] [place] blood by [place] [facility] anuj Pulse oximetry Branch Body temperature 2020-11-25 20:16:00 36.67 Jeanette [facility] ersity of [place] [facility] Body weight 2020-11-25 20:16:00 68.04 kg [facility]i ty [facility] [place] [facility] BMI 2020-11-25 20:16:00 22.81 kg/m2 [facility] [place] [facility] Systolic blood 2020-11-25 22:00:00 125 mm[Hg] Univer sity of pressure [place] [facility] Diastolic blood 2020-11-25 22:00:00 87 mm[Hg] Unive rsity of pressure [place] [facility] Heart rate 2020-11-25 22:00:00 89 /min [facility] [place] [facility] Respiratory rate 2020-11-25 22:00:00 19 /min Univ [facility] [place] [facility] Oxygen saturation in 2020-11-25 22:00:00 96 /min University of Arterial blood by [facility] anuj Pulse oximetry Branch Body temperature 2020-11-25 20:16:00 36.67 Jeanette [facility] ersity of [place] [facility] Body weight 2020-11-25 20:16:00 68.04 kg [facility] [place] [facility] BMI 2020-11-25 20:16:00 22.81 kg/m2 [facility] [place] [facility] Procedures Procedure Date / Time Performed Performing Clinician Sour e CONSENT/REFUSAL FOR 2021-05-03 16:52:48 [facility] Branch TREATMENT ASSIGNMENT OF BENEFITS 2021-04-16 17:52:37 Doctor Unassigned, No [facility] Medical Branch RAPID STREP SCREEN FOR 2021-04-16 16:30:00 Mary Beth Santacruz [facility] GROUP A Medical Branch CONSENT/REFUSAL FOR 2021-04-16 15:59:46 Doctor Unassigned, No [facility] AND Name Medical Branch TREATMENT URINALYSIS 2020-12-29 00:19:00 Geno Villalobos [facility] CONSENT/REFUSAL FOR 2020-12-28 20:23:27 Doctor Unassigned, No Un [facility] DIAGNOSIS AND Name Medical Branch TREATMENT TROPONIN I 2020-11-25 22:10:00 Frank [facility] XR CHEST 1 VW 2020-11-25 20:46:11 [facility] LIPASE 2020-11-25 20:34:00 [facility] TROPONIN I 2020-11-25 20:34:00 Frank [facility] HEPATIC FUNCTION PANEL 2020-11-25 20:34:00 Huang Marie [facility] ([id number]) Medical [place] (ALB,T.PRO,BILI T,BU/BC,ALT,AST,ALK PHOS) BASIC METABOLIC PANEL 2020-11-25 20:34:00 Huang Marie [facility] (NA, K, CL, CO2, Medical Branch GLUCOSE, BUN, CREATININE, CA) CBC WITH DIFF 2020-11-25 20:34:00 [facility] N-TERMINAL PRO-BNP 2020-11-25 20:34:00 Huang [facility] HB ECG ROUTINE & 2020-11-25 20:22:52 [facility] RHYTHM STRIP [facility] Branch Encounters Start End Encounter Admission Attending Care Care Encounter Source Date/Time Date/Time Type Type Clinicians Facility Department ID 2021-07-05 Emergency [facility] [id number] Univers 19:02:36 ity of [facility] 2021-07-05 Emergency [facility] [id number] Univers 15:21:12 it of [facility] 2021-07-04 Emergency [facility] [id number] Univers 15:22:03 ity of [facility] 2021-07-04 Emergency [facility] [id number] [facility] Inpatient HCAMN VIVIEN [id number] [facility] 17:34:00 [id number] [facility] 2021-05-03 2021-05-03 Emergency Sidra Suh [facility] [id number] Univers 12:30:00 21:32:00 Danielle [place] [id number] ity [place] 4.2.7.2.686 [place] [id number] [facility] 084 Branch 2021-05-03 2021-05-03 Orders Doctor FERMÍN [id number] Univers 00:00:00 00:00:00 Only Unassigned, ROLAND [id number] [facility] 4.2.7.2.686 Joce as [id number] [facility] 009 Branch 2021-04-22 2021-04-22 Nurse Therapy, Adc Covid Infusion [facility] [id number] Univers 12:53:19 13:53:19 Visit Darrell Francois [id number] ity of [place] 4.2.7.2.686 [facility] Surgical [id number] [facility] 053 Branch 2021-04-22 2021-04-22 Outpatient R [facility] [id number] Univers 13:00:00 13:00:00 [id number] ity [facility] 2021-04-22 2021-04-22 Outpatient R ALESSANDRO, [facility] [id number] Univers 13:00:00 13:00:00 DARRELL ity [facility] 2021-04-16 2021-04-16 Emergency Noam, [facility] [id number] Univers 11:17:00 13:59:00 Mary Beth Grace [id number] i ty of [place] 4.2.7.2.686 [facility] s [place] [id number] [place] [id number] Branch 2020-12-28 2020-12-28 Emergency Idania [facility] [id number] Univers 17:44:00 21:05:00 Geno Grace [id number] ity of [place] 4.2.7.2.686 [facility] [place] [id number] [place] [address] Branch 2020-12-28 2020-12-28 Emergency Ibikunle, [facility] 1.2.840.114 [id number] 17:44:00 21:05:00 Geno Grace [id number] [place] 4.2.7.2.686 [place] [id number] 084 2020-11-25 2020-11-25 [facility] [id number] [facility] 15:17:00 17:55:00 Huang Grace [id number] i ty of [place] 4.2.7.[address] [facility] [id number] [place] [address] Branch 2020-11-25 2020-11-25 Emergency [facility] [id number] 15:17:00 17:55:00 Huang Grace [id number] [place] 4.2.7.2.686 [place] [id number] 084 Results Test Description Test Time Test Comments Results Result Comments Source RAPID STREP SCREEN FOR GROUP A 2021-04-16 17:16:32 Test Item Value Reference Range Interpretation Comme nts Streptococcus pyogenes (group A) antigen (test code Negative Ne gative = 95347-5) LYUDMILA (test code = LYUDMILA) Performed on [employer]Now. Lab Interpretation (test code = 75411-3) Normal [facility]21-[facility]-27 00:53:40 Test Item Value Reference Range Interpretation Comments APPEARANCE (test code = Clear Clear 3421188579) COLOR (test code = Straw Yellow A 8662992560) PH (test code = 4.8-8.0 5451956510) SP GRAVITY (test code = 1.003-1.030 3998368470) GLU U QUAL (test code = Normal Normal 7274230807) BLOOD (test code = Negative Negative 6943770987) KETONES (test code = Negative Negative 3500754360) PROTEIN (test code = Negative Negative 2887-8) UROBILIN (test code = Normal Normal 9700246121) BILIRUBIN (test code = Negative Negative 8204310410) NITRITE (test code = Negative Negative 2564889267) LEUK ADALI (test code = Negative Negative 0756800126) RBC/HPF (test code = <1 See_Comment [Autom ated message] 0120250412) The system [employer] generated this result transmitted ref erence range: 0 - 3 HP F. The reference range was not used to int erpret this result as normal/abnormal . WBC/HPF (test code = <1 See_Comment [Autom ated message] 3031126502) The system [employer] generated this result transmitted ref erence range: 0 - 5 HP F. The reference range was not used to int erpret this result as normal/abnormal . BACTERIA (test code = Negative Negative 7514932260) Lab Interpretation (test Abnormal code = 77355-9) [facility] [id number] 22:39:08 Test Item Value Reference Range Interpretation Comments TROPONIN I (test 0.000 ng/mL See_Comment [Automated code = 8020049815) message] The system which generated this result [...] ? Lab Interpretation Normal (test code = 58312-2) [facility] [id number] 21:51:20 Test Item Value Reference Range Interpretation Comments TROPONIN I (test 0.001 ng/mL See_Comment [Automated code = 7558877518) message] The system which generated this result [...] ? Lab Interpretation Normal (test code = 28502-9) [facility] [id number] 21:39:24 Test Item Value Reference Range Interpretation Comments NT-proBNP (test code 18 pg/mL See_Comment [Autom ated = 0438972222) message] The system which generated this result transmitted reference range : <=125. The reference range was not used to interpret this result as normal/abnormal . LYUDMILA (test code = LYUDMILA) Biotin has been reported to cause a negative bias, interpret results relative to patient's use of biotin. Lab Interpretation Normal (test code = 28980-3) [facility] (ALB, T.PRO, BILI T, BU/BC, ALT, AST, ALK PHOS)2020-11-25 21:30:41 Test Item Value Reference Range Interpretation Comments TOTAL BILI (test code = 4425915813) 0.5 mg/dL 0.1-1.1 BILI UNCON (test code = 1734159381) 0.4 mg/dL 0.1-1.1 BILI CONJ (test code = 7757820114) 0.0 mg/dL 0.0-0.3 T PROTEIN (test code = 1627473286) 7.2 g/dL 6.3-8.2 ALBUMIN (test code = 5745220903) 4.2 g/dL 3.5-5.0 ALK PHOS (test code = 4602335110) 83 U/L 34-122 ALTv (test code = 1742-6) 15 U/L 5-35 AST(SGOT) (test code = 0019538244) 23 U/L 13-40 Lab Interpretation (test code = Normal 93221-1) [facility] Metabolic Panel (NA, K, CL, CO2, GLUCOSE, BUN, CREATININE, CA)2020-11-25 21:30:20 Test Item Value Reference Range Interpretation Comments NA (test code = 137 mmol/L 135-145 3971548479) K (test code = 3.2 mmol/L 3.5-5.0 L 5233971978) CL (test code = 106 mmol/L 98-108 8356544091) CO2 TOTAL (test code = 23 mmol/L 23-31 1054121521) AGAP (test code = 2-16 1496480189) BUN (test code = 4 mg/dL 7-23 L 6729183247) GLUCOSE (test code = 167 mg/dL 70-110 H 0694629430) CREATININE (test code = 0.60 mg/dL 0.50-1.04 4286937974) CALCIUM (test code = 8.9 mg/dL 8.6-10.6 9321038291) eGFR Calculation mL/min/1.73m2 (Non-) (test code = 2532622342) eGFR Calculation mL/min/1.73m2 () (test code = 9361003537) LYUDMILA (test code = LYUDMILA) Association of [...] tests). Lab Interpretation Abnormal (test code = 84064-8) [facility] [id number] 21:30:20 Test Item Value Reference Range Interpretation Comments LIPASE (test code = 7770438217) 73 U/L 0-220 Lab Interpretation (test code = Normal 56218-1) [facility] 1 [id number] 21:02:07 No acute cardiopulmonary abnormality. Preliminary Report [...] fixation of the left humerusis partially visualized. [facility], Radiant Results Inft User - 11/25/2020 4:03 [...] reviewed this study and agree with theabove report.[facility] 2020-11-25 20:57:54 Test Item Value Reference Range Interpretation Comments WBC (test code = See_Comment [Automated 4690-2) message] The sy stem which generated this [...] RDW-SD (test code = 42.4 fL 39.0-49.9 07179-2) RDW-CV (test code = 12.2 % 12.0-15.5 788-0) PLT (test code = See_Comment [Automated 777-3) message] The sy stem which generated this result transmitted reference range : 166 - 358 10*3/ ?L. The reference r kanika was not used to interpret this result as normal/abnormal . MPV (test code = 8.9 fL 9.5-12.9 L 62929-7) NRBC/100 WBC (test See_Comment [Automat ed code = 5589972618) message] The system which generated this result transmitted reference range : 0.0 - 10.0 /100 WBCs. The refer ence range was not u sed to interpret th is result as normal/abnormal . NRBC x10^3 (test code <0.01 See_Comment [Auto mated = 3712170849) message] The s ystem which generated this result transmitted reference range : 10*3/?L. The reference range was not used to interpret this result as normal/abnormal . GRAN MAT (NEUT) % 68.9 % (test code = 770-8) IMM GRAN % (test code 0.50 % = 0689415489) LYMPH % (test code = 22.0 % 736-9) MONO % (test code = 5.7 % 5905-5) EOS % (test code = 2.6 % 713-8) BASO % (test code = 0.3 % 706-2) GRAN MAT x10^3(ANC) 4.49 10*3/uL 1.88-7.09 (test code = 9685399587) IMM GRAN x10^3 (test 0.03 10*3/uL 0.00-0.06 code = 4921969910) LYMPH x10^3 (test code 1.43 10*3/uL 1.32-3.29 = 731-0) MONO x10^3 (test code 0.37 10*3/uL 0.33-0.92 = 742-7) EOS x10^3 (test code = 0.17 10*3/uL 0.03-0.39 711-2) BASO x10^3 (test code <0.03 0.01-0.07 = 704-7) Lab Interpretation Abnormal (test code = 62432-3) [facility] A[facility] PELVIS [id number] 20:28:00 FAX: Mari Parry,Ebonie Suarez MD [place]: [address]: REG Name: RENEE PARRISH [facility] : 1980 Age/S: 40/F [address] [facility] Unit: [id number] Loc: E.ERS2 [place], [place]: [place] [address] Acct: [id number] Dis Date: Status: REG ER PHONE #: [phone] Exam Date: 04/11/20202012 FAX #: [phone] Reason: PAIN EXAMS: CPT CODE: [id number] CT ABD PELVIS W/CONT [id number] LOCATION: T18 EXAM: CT ABDOMEN AND PELVIS [...] 04/11/2020 (2031 PAGE 1 Signed ReportCOMPREHENSIVE METABOLIC [id number] 18:37:00 Test Item Value Reference Range Interpretation [...] 90 Units/L 50.0-136.0 N code = ALKP) [id number] 18:37:00 Test Item Value Reference Range Interpretation Comments LIPASE (test code = LIP) 140 Units/L 65.0-230.0 N [id number] 18:37:00 Test Item Value Reference Range Interpretation Comments ALCOHOL (test code 0.00 gm/dL 0.00-0.00 N ETHYL ALC OHOL VALUES - = ALC) INTERPRETATION: 0.050 GM/DL - NOT INT OXICATED 0.100 GM/DL - INTOXICATED 0.3 50-0.450 GM/DL - SEVEREL Y INTOXICATED 0.5 50 GM/DL- FATAL INTOXICAT ION DRUGS OF ABUSE SCREEN [id number] 18:33:00 Test Item Value Reference Range Interpretation [...] (test NEGATIVE NEGATIVE code = [place]) URINALYSIS [id number] 18:32:00 Test Item Value Reference Range Interpretation [...] code = TRACE NONE BACU) UR HCG [id number] 18:32:00 Test Item Value Reference Range Interpretation Comments UR HCG QUAL (test code = HCGQLU) NEGATIVE NEGATIVE URINALYSIS [id number] 18:31:00 Test Item Value Reference Range Interpretation [...] (test code = NONE BACU) UR HCG [id number] 18:31:00 Test Item Value Reference Range Interpretation Comments UR HCG QUAL (test code = HCGQLU) NEGATIVE COMPREHENSIVE METABOLIC [id number] 18:27:00 Test Item Value Reference Range Interpretation [...] TOTAL (test Units/L 50.0-136.0 code = ALKP) [id number] 18:27:00 Test Item Value Reference Range Interpretation Comments LIPASE (test code = LIP) Units/L 65.0-230.0 [id number] 18:27:00 Test Item Value Reference Range Interpretation Comments ALCOHOL (test code = ALC) gm/dL 0.00-0.00 CBC W/AUTO [id number] 18:16:00 Test Item Value Reference Range Interpretation [...]
--- NOTE | 2021-09-09 13:07 | EDPHYS ---
Physician Documentation [facility] Name: Susana Tamayo Age: 41 yrs Sex: Female : 1980 Arrival Date: 09/09/2021 Time: 11:34 Bed Treatment Private MD: ED Physician Delilah Ardon HPI: 09/09 13:04 This 41 yrs old Female presents to ER via Ambulatory with complaints of Chest wall Pain.ma2 13:04 The patient or guardian reports chest pain that is located primarily in the anterior ma2 chest wall. Associated signs and symptoms: Pertinent negatives: headache, lower extremity swelling, near syncope, syncope. Severity of pain: At its worst the pain was very mild in the emergency department the pain is unchanged. The patient has experienced similar episodes in the past, And has 0 medical problems, here with left-sided chest wall pain for 3 days constant worse when she took deep breath or touch her left lateral chest wall on the left side, pain is constant,. Historical: - Allergies: 12:50 Darvocet-N 100; vg1 - Home Meds: 12:50 Amitriptyline Oral [Active]; migraine medicine [Active]; vg1 - PMHx: 12:50 Anxiety; Asthma; Depression; GERD; Migraines; vg1 - PSHx: 12:50 Ligation of fallopian tube; shoulder surgery; vg1 - Immunization history:: Client reports having NOT received the Covid vaccine. - Social history:: Smoking status: Patient reports the use of cigarette tobacco products, denies chronic smoking, but will smoke occasionally, smokes one-half pack cigarettes per day. - Family history:: not pertinent. ROS: 13:04 Constitutional: Negative for fever, chills, and weight loss. ma2 13:04 All other systems are negative. Exam: 13:04 Constitutional: This is a well developed, well nourished patient who is awake, alert, ma2 and in no acute distress. Neck: Trachea midline, no thyromegaly or masses palpated, and no cervical lymphadenopathy. Supple, full range of motion without nuchal rigidity, or vertebral point tenderness. No Meningismus. Chest/axilla: Chest wall pain is reproducible on exam with touching left lateral chest wall, otherwise normal chest wall appearance and motion. Nontender with no deformity. No lesions are appreciated. Cardiovascular: Regular rate and rhythm with a normal S1 and S2. No gallops, murmurs, or rubs. Normal PMI, no JVD. No pulse deficits. Respiratory: Lungs have equal breath sounds bilaterally, clear to auscultation and percussion. No rales, rhonchi or wheezes noted. No increased work of breathing, no retractions or nasal flaring. Abdomen/GI: Soft, non-tender, with normal bowel sounds. No distension or tympany. No guarding or rebound. No evidence of tenderness throughout. Vital Signs: 12:45 BP 136 / 90; Pulse 89; Resp 18; Temp 97.7; Pulse Ox 99% ; Weight 86.18 kg; Height 5 ft. vg1 9 in. (175.26 cm); Pain 8/10; 12:45 Body Mass Index 28.06 (86.18 kg, 175.26 cm) vg1 MDM: 13:04 Differential diagnosis: anxiety, chest wall pain, Cholelithiasis gastritis, ma2 gastroesophageal reflux disease (GERD). Data reviewed: vital signs, nurses notes, EMS record. Counseling: I had a detailed discussion with the patient and/or guardian regarding: the historical points, exam findings, and any diagnostic results supporting the discharge/admit diagnosis, the presence of at least one elevated blood pressure reading (>120/80) during this emergency department visit, the need for outpatient follow up. ED course: AURY score 0 heart score is 0, Wells score for PE is 0. EKG within normal limits. She will follow up with PCP tomorrow.. 13:06 Patient medically screened. ne2 09/09 12:59 Order name: EKG; Complete Time: 13:00 1 09/09 12:59 Order name: Cardiac monitoring 1 09/09 12:59 Order name: EKG - Nurse/Tech; Complete Time: 12:59 1 09/09 12:59 Order name: IV Saline Lock 1 09/09 12:59 Order name: Labs collected and sent 1 09/09 12:59 Order name: O2 Per Protocol; Complete Time: 12:59 1 09/09 12:59 Order name: O2 Sat Monitoring; Complete Time: 12:59 vg1 Administered Medications: No medications were administered Disposition Summary: 09/09/21 13:06 Discharge Ordered Location: Home ma2 Condition: Stable ma2 Diagnosis - Chest pain on breathing ma2 Followup: ma2 - With: Private Physician - When: Tomorrow - Reason: If symptoms return, Continuance of care Discharge Instructions: - Discharge Summary Sheet ma2 - Chest Wall Pain ma2 Forms: - Medication Reconciliation Form ma2 - Thank You Letter ma2 - Work release form iw - Antibiotic Education ma2 - Prescription Opioid Use ma2 Prescriptions: - Diclofenac Sodium 75 mg Oral Tablet Sustained Release - take 1 tablet by ORAL route 2 times per day; 30 tablet; Refills: 0, Product ma2 Selection Permitted Signatures: Dispatcher [employer] EDMS Delilah Ardon MD MD ma2 Chika Bolton RN RN vg1 Corrections: (The following items were deleted from the chart) 13: 13:00 BASIC METABOLIC PANEL+C.LAB.BRZ ordered. EDMS EDMS : 13:00 CBC+H.LAB.BRZ ordered. EDMS EDMS : 13:00 HEPATIC FUNCTION+C.LAB.BRZ ordered. EDMS EDMS : 13:00 MAGNESIUM+C.LAB.BRZ ordered. EDMS EDMS 13: 13:00 PROBNP+C.LAB.BRZ ordered. EDMS EDMS : 13:00 PROTIME (+INR)+COAG.LAB.BRZ ordered. EDMS EDMS 13: 13:00 TROPONIN (EMERG DEPT USE ONLY)+C.LAB.BRZ ordered. EDMS EDMS
--- NOTE | 2021-09-09 13:07 | ER ---
Nurse's Notes [facility] Name: Susana Tamayo Age: 41 yrs Sex: Female : 1980 Arrival Date: 09/09/2021 Time: 11:34 Bed Treatment Private MD: Diagnosis: Chest pain on breathing Presentation: 09/09 12:45 Chief complaint: Patient states: chest pain x 2 days that radiates to Right arm; states vg1 'feels like my arm is burning'. States diarrhea for two days and nausea. States SOB and difficulty breathing. Coronavirus screen: Vaccine status: Patient reports being unvaccinated. Client denies travel out of the [place] in the last 14 days. Ebola Screen: Patient negative for fever greater than or equal to 101.5 degrees Fahrenheit, and additional compatible Ebola Virus Disease symptoms. Initial Sepsis Screen: Does the patient meet any 2 criteria? No. Patient's initial sepsis screen is negative. Does the patient have a suspected source of infection? No. Patient's initial sepsis screen is negative. Risk Assessment: Do you want to hurt yourself or someone else? Patient reports no desire to harm self or others. Onset of symptoms was September 07, 2021. 12:45 Method Of Arrival: Ambulatory vg1 12:45 Acuity: DIMPLE 2 vg1 Triage Assessment: 12:50 General: Appears in no apparent distress. uncomfortable, Behavior is calm, cooperative. vg1 Pain: Complains of pain in anterior aspect of left upper chest and mid-sternal area and mid back Pain radiates to right arm Pain currently is 8 out of 10 on a pain scale. Pain began 2-3 days ago. Neuro: Level of Consciousness is awake, alert, obeys commands, Oriented to person, place, time, situation. Cardiovascular: Patient's skin is warm and dry. Respiratory: Airway is patent Respiratory effort is even, unlabored. Historical: - Allergies: 12:50 Darvocet-N 100; vg1 - Home Meds: 12:50 Amitriptyline Oral [Active]; migraine medicine [Active]; vg1 - PMHx: 12:50 Anxiety; Asthma; Depression; GERD; Migraines; vg1 - PSHx: 12:50 Ligation of fallopian tube; shoulder surgery; vg1 - Immunization history:: Client reports having NOT received the Covid vaccine. - Social history:: Smoking status: Patient reports the use of cigarette tobacco products, denies chronic smoking, but will smoke occasionally, smokes one-half pack cigarettes per day. - Family history:: not pertinent. Screenin:44 Abuse screen: Denies threats or abuse. Denies injuries from another. Nutritional iw screening: No deficits noted. Tuberculosis screening: No symptoms or risk factors identified. Fall Risk None identified. Assessment: 13:00 General: Appears in no apparent distress. Behavior is calm, cooperative. Pain: iw Complains of pain in right arm and mid-sternal area and anterior aspect of left upper chest. Pain: Pain does not radiate. Neuro: Level of Consciousness is awake, alert, obeys commands, Oriented to person, place, time, situation, Moves all extremities. Full function. Cardiovascular: Patient's skin is warm and dry. Respiratory: Respiratory effort is even, unlabored, Respiratory pattern is regular, symmetrical. Musculoskeletal: Range of motion: intact in all extremities. Vital Signs: 12:45 BP 136 / 90; Pulse 89; Resp 18; Temp 97.7; Pulse Ox 99% ; Weight 86.18 kg; Height 5 ft. vg1 9 in. (175.26 cm); Pain 8/10; 12:45 Body Mass Index 28.06 (86.18 kg, 175.26 cm) vg1 ED Course: 11:34 Patient arrived in ED. ds1 12:49 Triage completed. vg1 12:50 Arm band placed on. EKG completed in triage. Results shown to MD. vg1 13:00 Patient has correct armband on for positive identification. 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 iw 13:04 Delilah Ardon MD is Attending Physician. ma2 13:22 Zina Suh, IBETH is Primary Nurse. iw 13:44 No provider procedures requiring assistance completed. Patient did not have IV access iw during this emergency room visit. Patient maintains SpO2 saturation greater than 95% on room air. Administered Medications: No medications were administered Outcome: 13:06 Discharge ordered by . ma2 13:44 Discharged to home ambulatory. iw 13:44 Condition: good 13:44 Discharge instructions given to patient, Instructed on discharge instructions, follow up and referral plans. Demonstrated understanding of instructions, follow-up care. 13:45 Patient left the ED. iw Signatures: Zehra Epps ds1 Zina Suh RN RN iw Delilah Ardon MD MD ma2 Chika Bolton RN RN vg1 Corrections: (The following items were deleted from the chart) : 12:24 Chief complaint: vg1 vg1
[2021-09-09 13:59] VITALS: BP 136/90; TEMP 97.7; O2SAT 99
--- NOTE | 2021-09-10 10:05 | EKG ---
Test Date: 2021-09-09 Test Time: 12:54:53 Cuff Setter Overlock: HALIE MEASUREMENT RESULTS: Intervals: Rate: 90 OH: 130 QRSD: 80 QT: 368 QTc: 450 [place]: P: 69 OH: 130 QRS: 92 T: 50 INTERPRETIVE STATEMENTS: Normal sinus rhythm Rightward axis Borderline ECG Compared to ECG 01/09/2021 20:36:13 Right-axis deviation now present Electronically Signed On 09-10-21 10:04:34 WASTEWATER MANAGER by Tavo Silverman
== END 2021-09-09 13:45 | disposition home or self-care (01) ==
LOC: ER 11:32
DX: R07.1 Chest pain on breathing (principal); F41.8 Other specified anxiety disorders; F17.210 Nicotine dependence, cigarettes, uncomplicated; Z88.5 Allergy status to narcotic agent
CPT/HCPCS: 93005; 99284; U0003

== ENCOUNTER 2021-10-08 15:34 | Emergency (ER) | payer SELFPAY ==
--- OUTSIDE RECORDS SUMMARY | 2021-10-08 15:39 | XMS REPORT | Continuity of Care Document ---
:1980 Author Organization [facility] t Address [address] [place] [address] Care Team Providers Name Role Phone Curt Kearney Primary Care Physician Tomas Suh DO Attending Clinician Bridgette SHEARER R Attending Clinician Doctor Unassigned, Name Attending Clinician Unavailable Therapy, Covid Infusion Attending Clinician Unavailable Alessandro TORRES, Nia Attending Clinician Nia FRANCOIS Attending Clinician Unavailable Noam LEG MAN Attending Clinician Thomas Harris Attending Clinician Frank [...] Allergie 04-11 [place] 00:00: d 00 [facility] No Known DA Active U [facility] Allergie 04-11 [place] 00:00: d 00 [facility] PROPOXYP DRUG Active N/V Univers HENE 2-08 ity of N-ACETAM 00:00: [place] INOPHEN 00 [facility] Propoxyp Propensi Active Nausea Univer s hene ty to and/or 2-08 ity of N-Acetam adverse Vomiting 00:00: [place] inophen reaction [address] [place] [address] Social History Social Habit Start Date Stop Date Quantity Comments Source History of tobacco Cigarette Smoker University of use [facility] Exposure to Not sure University of SARS-CoV-2 (event) [facility] Cigarettes smoked 2021-05-03 2021-05-03 Univers ity of current (pack per 00:00:00 00:00:00 ) - Reported [place] Cigarette 2021-05-03 2021-05-03 University of pack-years 00:00:00 00:00:00 [facility] Tobacco use and 2021-05-03 2021-05-03 Never used Universit y of exposure 00:00:00 00:00:00 [facility] Alcohol intake 2021-05-03 2021-05-03 University of 00:00:00 00:00:00 [facility] Sex Assigned At [birth year] Universit y of 00:00:00 00:00:00 [facility] Smoking Status Start Date Stop Date Source Current every day smoker 2021-05-03 00:00:00 Uni versity of [facility] Medications Ordered Filled Start Stop Current Ordering Indication Dosage Frequency Signature Comments Components Source Medication Medication Date Date Medication? Clinician (SIG) Name Name casirivimab 2020- No [id number] 1200mg Univers -imdevimab 04-22 ity of (REGEN-COV 19:30: 19:24 [place] (EUA)) 00 :00 Medical 1,200 mg in Branch NaCl 0.9% (NS) 60 mL IV infusion casirivimab 2020- No [id number] 1200mg 1,200 mg, Univers -imdevimab 04-22 IV ity of (REGEN-COV 19:30: 19:24 [place], [place] (EUA[place] 00 :00 ONCE, Medical 1,200 mg in Administer Br anch NaCl 0.9% over 20 (NS) 60 mL Minutes, IV infusion [facility] 04/22/21 at 1430, For 1 dose
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 bromphenira Yes [id number] 5mL Take 5 mL Univers mine-pseudo 04-16 by mouth 4 it y of ephedrine-D 00:00: (four[place] (BROMFED 00 times Medical DM) 2-30-10 daily as Bran ch mg/5 mL needed for syrup Congestion /Allergies . ondansetron 2021-0 Yes [id number] 4mg Take 1 Univers (ZOFRAN 8-13 tablet by ity of ODT) 4 mg 00:00: mouth [place] disintegrat 00 every 8 Medic al ing tablet (eight) Branch hours as needed for Nausea and Vomiting (N/V). bromphenira 2021-0 Yes [id number] 5mL Take 5 mL Univers mine-pseudo 8-13 by mouth 4 it y of ephedrine-D 00:00: (four[place] (BROMFED 00 times Medical DM) 2-30-10 daily as Bran ch mg/5 mL needed for syrup Congestion /Allergies . ondansetron 1-0 Yes [id number] 4mg Take 1 Univers (ZOFRAN 8-13 tablet by ity of ODT) 4 mg 00:00: mouth [place] disintegrat 00 every 8 Medic al ing tablet (eight) Branch hours as needed for Nausea and Vomiting (N/V). bromphenira 2021-0 Yes [id number] 5mL Take 5 mL Univers mine-pseudo 8-13 by mouth 4 it y of ephedrine-D 00:00: (four[place] (BROMFED 00 times Medical DM) 2-30-10 daily as Bran ch mg/5 mL needed for syrup Congestion /Allergies . ondansetron 1-0 Yes [id number] 4mg Take 1 Univers (ZOFRAN 8-13 tablet by ity of ODT) 4 mg 00:00: mouth [place] disintegrat 00 every 8 Medic al ing tablet (eight) Branch hours as needed for Nausea and Vomiting (N/V). bromphenira 2021-0 Yes [id number] 5mL Take 5 mL Univers mine-pseudo 8-13 by mouth 4 it y of ephedrine-D 00:00: (four[place] (BROMFED 00 times Medical DM) 2-30-10 daily as Bran ch mg/5 mL needed for syrup Congestion /Allergies . ondansetron 2021-0 Yes [id number] 4mg Take 1 Univers (ZOFRAN 8-13 tablet by ity of ODT) 4 mg 00:00: mouth [place] disintegrat 00 every 8 Medic al ing tablet (eight) Branch hours as needed for Nausea and Vomiting (N/V). bromphenira Yes [id number] 5mL Take 5 mL Univers mine-pseudo 8-13 by mouth 4 it y of ephedrine-D 00:00: (four) [place] (BROMFED 00 times Medical DM) 2-30-10 daily as Bran ch mg/5 mL needed for syrup Congestion /Allergies . ondansetron Yes [id number] 4mg Take 1 Univers (ZOFRAN 8-13 tablet by ity of ODT) 4 mg 00:00: mouth [place] disintegrat 00 every 8 Medic al ing tablet (eight) Branch hours as needed for Nausea and Vomiting (N/V). bromphenira Yes [id number] 5mL Take 5 mL Univers mine-pseudo 8-13 by mouth 4 it y of ephedrine-D 00:00: (four[place] (BROMFED 00 times Medical DM) 2-30-10 daily as Bran ch mg/5 mL needed for syrup Congestion /Allergies . predniSONE 2020- No [id number] 40mg Take 2 Univers 20 mg 8-13 [...] Restricted medication : GENO VILLALOBOS ibuprofen Yes [id number] 600mg Take 1 Univers 600 mg 4-26 tablet by ity of tablet 00:00: mouth [place] 00 every 6 Medical (six) Branch hours as needed for Pain (scale 4-6). ibuprofen 2021-0 Yes [id number] 600mg Take 1 Univers 600 mg 4-26 tablet by ity of tablet 00:00: mouth [place] 00 every 6 Medical (six) Branch hours as needed for Pain (scale 4-6). ibuprofen 2020-0 Yes [id number] 600mg Take 1 Univers 600 mg 4-26 tablet by ity of tablet 00:00: mouth [place] 00 every 6 Medical (six) Branch hours as needed for Pain (scale 4-6). ibuprofen 2020-0 Yes [id number] 600mg Take 1 Univers 600 mg 4-26 tablet by ity of tablet 00:00: mouth [place] 00 every 6 Medical (six) Branch hours as needed for Pain (scale 4-6). ibuprofen 2020-0 Yes [id number] 600mg Take 1 Univers 600 mg 4-26 tablet by ity of tablet 00:00: mouth [place] 00 every 6 Medical (six) Branch hours as needed for Pain (scale 4-6). ibuprofen 2020-0 Yes [id number] 600mg Take 1 Univers 600 mg 4-26 tablet by ity of tablet 00:00: mouth [place] 00 every 6 Medical (six) Branch hours as needed for Pain (scale 4-6). ibuprofen 2020-0 Yes [id number] 600mg Take 1 Univers 600 mg 4-26 tablet by ity of tablet 00:00: mouth [place] 00 every 6 Medical (six) Branch hours as needed for Pain (scale 4-6). cephALEXin 2020- No [id number] 500mg Take 1 Univers 500 mg 4-26 [...] hours as needed (t). triamcinolo 2012- Yes [id number] Apply to [facility] [place] [facility] 7-18 area(s) 2 ity of acetonide 00:00: (two) [place] (KENALOG) 00 times Medical 0.1 % daily. Branch ointment triamcinolo 2012- Yes [id number] Apply to Univers ne 7-18 area(s) 2 ity of acetonide 00:00: (two) [place] (KENALOG) 00 times Medical 0.1 % daily. Branch ointment triamcinolo 2012- Yes [id number] Apply to [facility] ne 7-18 area(s) 2 ity of acetonide 00:00: (two) [place] (KENALOG) 00 times Medical 0.1 % daily. Branch ointment triamcinolo 2012- Yes [id number] Apply to [facility] [place] [facility] 7-18 area(s) 2 ity of acetonide 00:00: (two) [place] (KENALOG) 00 times Medical 0.1 % daily. Branch ointment triamcinolo 2012- Yes [id number] Apply to [facility] ne 7-18 area(s) 2 ity of acetonide 00:00: (two) [place] (KENALOG) 00 times Medical 0.1 % daily. Branch ointment triamcinolo 2012- Yes [id number] Apply to [facility] [place] [facility] 7-18 area(s) 2 ity of acetonide 00:00: (two) [place] (KENALOG) 00 times Medical 0.1 % daily. Branch ointment triamcinolo 2012- Yes [id number] Apply to [facility] [place] [facility] 7-18 area(s) 2 ity of acetonide 00:00: (two) [place] (KENALOG) 00 times Medical 0.1 % daily. Branch ointment triamcinolo Yes [id number] Apply to [facility] [place] [facility] 7-18 area(s) 2 ity of acetonide 00:00: (two) [place] (KENALOG) 00 times Medical 0.1 % daily. Branch ointment Vital Signs Vital Name Observation Time Observation Value Comments Source Systolic blood 2021-05-03 17:27:00 127 [facility] Diastolic blood 2021-05-03 17:27:00 74 mm[Hg] [facility] Heart rate 2021-05-03 17:27:00 94 /min [facility] Body temperature 2021-05-03 17:27:00 37.11 Jeanette [facility] Respiratory rate 2021-05-03 17:27:00 16 /min [facility] Body height 2021-05-03 17:27:00 175.3 cm [facility] [place] [facility] Body weight 2021-05-03 17:27:00 68.04 kg [facility] [place] [facility] BMI 2021-05-03 17:27:00 22.15 kg/m2 [facility] [place] [facility] Oxygen saturation in 2021-05-03 17:27:00 97 /min University of Arterial blood by [facility] Pulse oximetry Branch Systolic blood 2021-04-22 20:25:00 99 mm[Hg] Univer sity of pressure [place] [facility] Diastolic blood 2021-04-22 20:25:00 64 mm[Hg] Unive rsity of pressure [place] [facility] Heart rate 2021-04-22 20:25:00 75 /min [facility]i [facility] [place] [facility] Body temperature 2021-04-22 20:25:00 36.5 Jeanette Univ ersity [facility] [place] [facility] Respiratory rate 2021-04-22 20:25:00 17 /min Univ ers[facility] [place] [facility] Oxygen saturation in 2021-04-22 20:25:00 99 /min University of Arterial blood by [facility] Pulse oximetry Branch Body height 2021-04-22 18:25:00 175.3 cm [facility] [place] [facility] Body weight 2021-04-22 18:25:00 84.823 kg [facility] [place] [facility] BMI 2021-04-22 18:25:00 27.62 kg/m2 [facility] [place] [facility] Systolic blood 2021-04-16 16:16:00 137 mm[Hg] Univer sity of [facility] [place] [facility] Diastolic blood 2021-04-16 16:16:00 68 mm[Hg] Unive rsity of [facility] [place] [facility] Heart rate 2021-04-16 16:16:00 78 /min [facility] [place] [facility] Body temperature 2021-04-16 16:16:00 36.83 Jeanette Univ ers[facility] [place] [facility] Respiratory rate 2021-04-16 16:16:00 18 /min Univ ers[facility] [place] [facility] Body height 2021-04-16 16:16:00 175.3 cm [facility] [place] [facility] Body weight 2021-04-16 16:16:00 80.74 kg [facility] [place] [facility] BMI 2021-04-16 16:16:00 26.29 kg/m2 [facility] [place] [facility] Oxygen saturation in 2021-04-16 16:16:00 97 /min University of Arterial blood by [facility] Pulse oximetry Branch Systolic blood 2020-12-29 00:00:00 123 mm[Hg] Univer sity of [facility] [place] [facility] Diastolic blood 2020-12-29 00:00:00 82 mm[Hg] Unive rsity of [facility] [place] [facility] Heart rate 2020-12-29 00:00:00 77 /min [facility] [place] [facility] Respiratory rate 2020-12-29 00:00:00 16 /min Univ ers[facility] [place] [facility] Oxygen saturation in 2020-12-29 00:00:00 99 /min University of Arterial blood by [facility] Pulse oximetry Branch Body temperature 2020-12-28 20:34:00 37 Jeanette Univ [facility] [place] [facility] Body weight 2020-12-28 20:34:00 68.04 kg [facility] [place] [facility] BMI 2020-12-28 20:34:00 22.81 kg/m2 [facility] [place] [facility] Systolic blood 2020-12-29 00:00:00 123 mm[Hg] Univer sity of [facility] [place] [facility] Diastolic blood 2020-12-29 00:00:00 82 mm[Hg] Unive rsity of [facility] [place] [facility] Heart rate 2020-12-29 00:00:00 77 /min [facility] [place] [facility] Respiratory rate 2020-12-29 00:00:00 16 /min Univ ers[facility] [place] [facility] Oxygen saturation in 2020-12-29 00:00:00 99 /min University of Arterial blood by [facility] Pulse oximetry Branch Body temperature 2020-12-28 20:34:00 37 Jeanette Univ [facility] [place] [facility] Body weight 2020-12-28 20:34:00 68.04 kg [facility] [place] [facility] BMI 2020-12-28 20:34:00 22.81 kg/m2 [facility] [place] [facility] Systolic blood 2020-11-25 22:00:00 125 mm[Hg] Univer sity of [facility] [place] [facility] Diastolic blood 2020-11-25 22:00:00 87 mm[Hg] Unive rsity of [facility] [place] [facility] Heart rate 2020-11-25 22:00:00 89 /min [facility]i [facility] [place] [facility] Respiratory rate 2020-11-25 22:00:00 19 /min Univ ers[facility] [place] [facility] Oxygen saturation in 2020-11-25 22:00:00 96 /min [facility] [place]terial blood by [place] [facility] Pulse oximetry Branch Body temperature 2020-11-25 20:16:00 36.67 Jeanette [facility] ersity [facility] [place] [facility] Body weight 2020-11-25 20:16:00 68.04 kg [facility] [place] [facility] BMI 2020-11-25 20:16:00 22.81 kg/m2 [facility] [place] [facility] Systolic blood 2020-11-25 22:00:00 125 mm[Hg] Univer sity of [facility] [place] [facility] Diastolic blood 2020-11-25 22:00:00 87 mm[Hg] Unive rsity of [facility] [place] [facility] Heart rate 2020-11-25 22:00:00 89 /min [facility] [place] [facility] Respiratory rate 2020-11-25 22:00:00 19 /min Univ [facility] [place] [facility] Oxygen saturation in 2020-11-25 22:00:00 96 /min University of Arterial blood by [place] [facility] anuj Pulse oximetry Branch Body temperature 2020-11-25 20:16:00 36.67 Jeanette [facility] [place] [facility] Body weight 2020-11-25 20:16:00 68.04 kg [facility] [place] [facility] BMI 2020-11-25 20:16:00 22.81 kg/m2 [facility] [place] [facility] Procedures Procedure Date / Time Performed Performing Clinician Sour e CONSENT/REFUSAL FOR 2021-05-03 16:52:48 [facility] Branch TREATMENT ASSIGNMENT OF BENEFITS 2021-04-16 17:52:37 Doctor Unassigned, No [facility] Medical Branch RAPID STREP SCREEN FOR 2021-04-16 16:30:00 [facility] GROUP A Medical Branch CONSENT/REFUSAL FOR 2021-04-16 15:59:46 Doctor Unassigned, No [facility] Medical Branch TREATMENT URINALYSIS 2020-12-29 00:19:00 Geno Villalobos [facility] CONSENT/REFUSAL FOR 2020-12-28 20:23:27 Doctor Unassigned, No Un [facility] DIAGNOSIS AND Name Medical Branch TREATMENT TROPONIN I 2020-11-25 22:10:00 Frank [facility] XR CHEST 1 VW 2020-11-25 20:46:11 [facility] LIPASE 2020-11-25 20:34:00 [facility] TROPONIN I 2020-11-25 20:34:00 Frank [facility] HEPATIC FUNCTION PANEL 2020-11-25 20:34:00 Huang Marie [facility] ([id number]) Medical [place] (ALB,T.PRO,BILI T,BU/BC,ALT,AST,ALK PHOS) BASIC METABOLIC PANEL 2020-11-25 20:34:00 Huang Marie [facility] (NA, K, CL, CO2, Medical Branch GLUCOSE, BUN, CREATININE, CA) CBC WITH DIFF 2020-11-25 20:34:00 [facility] N-TERMINAL PRO-BNP 2020-11-25 20:34:00 Huang Marie [facility] HB ECG ROUTINE & 2020-11-25 20:22:52 [facility] RHYTHM STRIP [facility] Branch Encounters Start End Encounter Admission Attending Care Care Encounter Source Date/Time Date/Time Type Type Clinicians Facility Department ID 2021-07-05 Emergency [facility] [id number] Univers 19:02:36 ity of [facility] 2021-07-05 Emergency [facility] [id number] Univers 15:21:12 it of [facility] 2021-07-04 Emergency [facility] [id number] Univers 15:22:03 ity of [facility] 2021-07-04 Emergency [facility] [id number] Univers [facility] Inpatient HCAMN VIVIEN [id number] [facility] 17:34:00 [id number] [facility] 2021-05-03 2021-05-03 Emergency Sidra Suh [facility] 1.2.8 [id number] Univers 12:30:00 21:32:00 Danielle [place] [id number] ity of [place] 4[place]2.[place].2.686 [place] [id number] [facility] 084 Branch 2021-05-03 2021-05-03 Orders Doctor FERMÍN [id number] Univers 00:00:00 00:00:00 Only Unassigned, ROLAND [id number] [facility] 4.2.7.2.[id number] [facility] 009 Branch 2021-04-22 2021-04-22 Nurse Therapy, Adc Covid Infusion [facility] [id number] Univers 12:53:19 13:53:19 Visit Darrell Francois [id number] ity of [place] 4.2.7.2.686 [facility] Surgical [id number] [facility] 053 Branch 2021-04-22 2021-04-22 Outpatient R [facility] [id number] Univers 13:00:00 13:00:00 [id number] ity [facility] 2021-04-22 2021-04-22 Outpatient R ALESSANDRO, [facility] [id number] Univers 13:00:00 13:00:00 DARRELL ity [facility] 2021-04-16 2021-04-16 Emergency Noam, [facility] [id number] Univers 11:17:00 13:59:00 Mary Beth Grace [id number] i ty of [place] 4.2.7.2.686 [facility] s [place] [id number] [place] [address] Branch 2020-12-28 2020-12-28 Emergency Idania [facility] [id number] Univers 17:44:00 21:05:00 Geno Grace [id number] ity of [place] 4.2.7.2.686 [facility] [place] [id number] [place] [address] Branch 2020-12-28 2020-12-28 Emergency Ibikunle, [facility] [id number] 17:44:00 21:05:00 Geno Grace [id number] [place] 4.2.7.2.686 [place] [id number] 084 2020-11-25 2020-11-25 [facility] [id number] [facility] 15:17:00 17:55:00 Huang Grace [id number] i ty of [place] 4.2.7.2.686 [facility] [id number] [place] [address] Branch 2020-11-25 2020-11-25 Emergency [facility] [id number] 15:17:00 17:55:00 Huang Grace [id number] [place] 4.2.7.2.686 [place] [id number] 084 Results Test Description Test Time Test Comments Results Result Comments Source RAPID STREP SCREEN FOR GROUP A 2021-04-16 17:16:32 Test Item Value Reference Range Interpretation Comme nts Streptococcus pyogenes (group A) antigen (test code Negative Ne gative = 31476-8) LYUDMILA (test code = LYUDMILA) Performed on [employer]. Lab Interpretation (test code = 99708-0) Normal [facility] 00:53:40 Test Item Value Reference Range Interpretation Comments APPEARANCE (test code = Clear Clear 4050513660) COLOR (test code = Straw Yellow A 4202499560) PH (test code = 4.8-8.0 2702230400) SP GRAVITY (test code = 1.003-1.030 9453433658) GLU U QUAL (test code = Normal Normal 7561487676) BLOOD (test code = Negative Negative 3769808458) KETONES (test code = Negative Negative 9415961580) PROTEIN (test code = Negative Negative 2887-8) UROBILIN (test code = Normal Normal 8444307389) BILIRUBIN (test code = Negative Negative 6471052682) NITRITE (test code = Negative Negative 9228067393) LEUK ADALI (test code = Negative Negative 9519830264) RBC/HPF (test code = <1 See_Comment [Autom ated message] 6124512951) The system [employer] generated this result transmitted ref erence range: 0 - 3 HP F. The reference range was not used to int erpret this result as normal/abnormal . WBC/HPF (test code = <1 See_Comment [Autom ated message] 7059328319) The system [employer] generated this result transmitted ref erence range: 0 - 5 HP F. The reference range was not used to int erpret this result as normal/abnormal . BACTERIA (test code = Negative Negative 9140310072) Lab Interpretation (test Abnormal code = 08488-9) [facility] [id number] 22:39:08 Test Item Value Reference Range Interpretation Comments TROPONIN I (test 0.000 ng/mL See_Comment [Automated code = 7048126196) message] The system which generated this result [...] ? Lab Interpretation Normal (test code = 55087-8) [facility] [place] [facility] [id number] 21:51:20 Test Item Value Reference Range Interpretation Comments TROPONIN I (test 0.001 ng/mL See_Comment [Automated code = 0783859993) message] The system which generated this result [...] ? Lab Interpretation Normal (test code = 20258-8) [facility] [id number] 21:39:24 Test Item Value Reference Range Interpretation Comments NT-proBNP (test code 18 pg/mL See_Comment [Autom ated = 1753594729) message] The system which generated this result transmitted reference range : <=125. The reference range was not used to interpret this result as normal/abnormal . LYUDMILA (test code = LYUDMILA) Biotin has been reported to cause a negative bias, interpret results relative to patient's use of biotin. Lab Interpretation Normal (test code = 31584-9) [facility] (ALB, T.PRO, BILI T, BU/BC, ALT, AST, ALK PHOS)2020-11-25 21:30:41 Test Item Value Reference Range Interpretation Comments TOTAL BILI (test code = 1497947268) 0.5 mg/dL 0.1-1.1 BILI UNCON (test code = 3008159795) 0.4 mg/dL 0.1-1.1 BILI CONJ (test code = 4112521812) 0.0 mg/dL 0.0-0.3 T PROTEIN (test code = 5317003917) 7.2 g/dL 6.3-8.2 ALBUMIN (test code = 0188523912) 4.2 g/dL 3.5-5.0 ALK PHOS (test code = 9850289945) 83 U/L 34-122 ALTv (test code = 1742-6) 15 U/L 5-35 AST(SGOT) (test code = 9738899898) 23 U/L 13-40 Lab Interpretation (test code = Normal 38139-7) [facility] Metabolic Panel (NA, K, CL, CO2, GLUCOSE, BUN, CREATININE, CA)2020-11-25 21:30:20 Test Item Value Reference Range Interpretation Comments NA (test code = 137 mmol/L 135-145 3109509724) K (test code = 3.2 mmol/L 3.5-5.0 L 9504174404) CL (test code = 106 mmol/L 98-108 1370014246) CO2 TOTAL (test code = 23 mmol/L 23-31 4060922824) AGAP (test code = 2-16 6062153170) BUN (test code = 4 mg/dL 7-23 L 1702768730) GLUCOSE (test code = 167 mg/dL 70-110 H 6063402339) CREATININE (test code = 0.60 mg/dL 0.50-1.04 3697807241) CALCIUM (test code = 8.9 mg/dL 8.6-10.6 3819613268) eGFR Calculation mL/min/1.73m2 (Non-) (test code = 7058392547) eGFR Calculation mL/min/1.73m2 () (test code = 5789611546) LYUDMILA (test code = LYUDMILA) Association of [...] tests). Lab Interpretation Abnormal (test code = 31389-4) [facility] [id number] 21:30:20 Test Item Value Reference Range Interpretation Comments LIPASE (test code = 8856937980) 73 U/L 0-220 Lab Interpretation (test code = Normal 09253-1) [facility] 1 [id number] 21:02:07 No acute cardiopulmonary abnormality. Preliminary Report [...] fixation of the left humerusis partially visualized. [facility], Radiant Results Inft User - 11/25/2020 4:03 [...] reviewed this study and agree with theabove report.[facility] with Differential 2020-11-25 20:57:54 Test Item Value Reference Range Interpretation Comments WBC (test code = See_Comment [Automated 2390-2) message] The sy stem which generated this [...] RDW-SD (test code = 42.4 fL 39.0-49.9 18963-5) RDW-CV (test code = 12.2 % 12.0-15.5 788-0) PLT (test code = See_Comment [Automated 777-3) message] The sy stem which generated this result transmitted reference range : 166 - 358 10*3/ ?L. The reference r kanika was not used to interpret this result as normal/abnormal . MPV (test code = 8.9 fL 9.5-12.9 L 09004-1) NRBC/100 WBC (test See_Comment [Automat ed code = 7523978639) message] The system which generated this result transmitted reference range : 0.0 - 10.0 /100 WBCs. The refer ence range was not u sed to interpret th is result as normal/abnormal . NRBC x10^3 (test code <0.01 See_Comment [Auto mated = 6466922140) message] The s ystem which generated this result transmitted reference range : 10*3/?L. The reference range was not used to interpret this result as normal/abnormal . GRAN MAT (NEUT) % 68.9 % (test code = 770-8) IMM GRAN % (test code 0.50 % = 2236980801) LYMPH % (test code = 22.0 % 736-9) MONO % (test code = 5.7 % 5905-5) EOS % (test code = 2.6 % 713-8) BASO % (test code = 0.3 % 706-2) GRAN MAT x10^3(ANC) 4.49 10*3/uL 1.88-7.09 (test code = 8478186814) IMM GRAN x10^3 (test 0.03 10*3/uL 0.00-0.06 code = 2971139704) LYMPH x10^3 (test code 1.43 10*3/uL 1.32-3.29 = 731-0) MONO x10^3 (test code 0.37 10*3/uL 0.33-0.92 = 742-7) EOS x10^3 (test code = 0.17 10*3/uL 0.03-0.39 711-2) BASO x10^3 (test code <0.03 0.01-0.07 = 704-7) Lab Interpretation Abnormal (test code = 82337-5) [facility]- CT ABD PELVIS [id number] 20:28:00 FAX: Mari Parry,Ebonie Suarez MD [place]: Y[address] St: REG Name: RENEE PARRISH [facility] : 1980 Age/S: 40/F [address] [facility] Unit: [id number] Loc: E.ERS2 [place], [place] Phys: [place] [id number] Acct: [id number] Dis Date: Status: REG ER PHONE #: [phone] Exam Date: 04/11/20202012 FAX #: [phone] Reason: PAIN EXAMS: CPT CODE: [id number] CT ABD PELVIS W/CONT 10662 LOCATION: T18 EXAM: CT ABDOMEN AND PELVIS [...] 04/11/2020 (2031 PAGE 1 Signed ReportCOMPREHENSIVE METABOLIC [id number] 18:37:00 Test Item Value Reference Range Interpretation [...] 90 Units/L 50.0-136.0 N code = ALKP) [id number] 18:37:00 Test Item Value Reference Range Interpretation Comments LIPASE (test code = LIP) 140 Units/L 65.0-230.0 N [id number] 18:37:00 Test Item Value Reference Range Interpretation Comments ALCOHOL (test code 0.00 gm/dL 0.00-0.00 N ETHYL ALC OHOL VALUES - = ALC) INTERPRETATION: 0.050 GM/DL - NOT INT OXICATED 0.100 GM/DL - INTOXICATED 0.3 50-0.450 GM/DL - SEVEREL Y INTOXICATED 0.5 50 GM/DL- FATAL INTOXICAT ION DRUGS OF ABUSE SCREEN [id number] 18:33:00 Test Item Value Reference Range Interpretation [...] (test NEGATIVE NEGATIVE code = [place]) URINALYSIS [id number] 18:32:00 Test Item Value Reference Range Interpretation [...] code = TRACE NONE BACU) UR HCG [id number] 18:32:00 Test Item Value Reference Range Interpretation Comments UR HCG QUAL (test code = HCGQLU) NEGATIVE NEGATIVE URINALYSIS [id number] 18:31:00 Test Item Value Reference Range Interpretation [...] (test code = NONE BACU) UR HCG [id number] 18:31:00 Test Item Value Reference Range Interpretation Comments UR HCG QUAL (test code = HCGQLU) NEGATIVE COMPREHENSIVE METABOLIC [id number] 18:27:00 Test Item Value Reference Range Interpretation [...] TOTAL (test Units/L 50.0-136.0 code = ALKP) [id number] 18:27:00 Test Item Value Reference Range Interpretation Comments LIPASE (test code = LIP) Units/L 65.0-230.0 [id number] 18:27:00 Test Item Value Reference Range Interpretation Comments ALCOHOL (test code = ALC) gm/dL 0.00-0.00 CBC W/AUTO [id number] 18:16:00 Test Item Value Reference Range Interpretation [...]
--- NOTE | 2021-10-08 16:41 | RAD REPORT ---
EXAM DESCRIPTION: RAD - Chest Single View - 10/08/2021 4:30 pm CLINICAL HISTORY: CHEST PAIN Chest pain. COMPARISON: Chest Single View dated 09/14/2020; Chest Single View dated 08/30/2020; Chest Single View dated 08/03/2020; Chest Single View dated 02/01/2020 FINDINGS: Portable technique limits examination quality. The lungs are grossly clear. The heart is normal in size. No displaced fractures.Proximal left humeru s hardware. IMPRESSION: No acute intrathoracic process suspected.
[2021-10-08 16:44] LABS: Urine Blood Negative (Negative); Urine Glucose Negative (Negative); Urine Protein Negative (Negative); Urine Specific Gravity 1.015 (1.005-1.030)
[2021-10-08] MEDS ORDERED: NA CHLORIDE 0.9% 500 ML ONE (16:52)
[2021-10-08] MEDS ORDERED: KETOROLAC 30 MG/ML INJ ONE (16:52)
[2021-10-08 16:59] LABS: Absolute Lymphocytes (CBC) 1.9 K/uL (0.7-4.9); Hematocrit 38.8 % (36.0-45.0); Lymphocytes % 23.1 % (15.3-44.8); MPV 6.3 fL (7.6-11.3); RBC Red Blood Cell Count 4.04 M/uL (3.86-4.86)
[2021-10-08 17:02] LABS: Protime INR 0.97
[2021-10-08 17:07] LABS: Barbiturates POSITIVE (NEGATIVE); Benzodiazepines NEGATIVE (NEGATIVE); Cocaine NEGATIVE (NEGATIVE); METHAMPHETAM NEGATIVE (NEGATIVE); Methadone NEGATIVE (NEGATIVE); Opiates NEGATIVE (NEGATIVE); Phencyclidine NEGATIVE (NEGATIVE); THC Cannibis NEGATIVE (NEGATIVE)
[2021-10-08 17:24] LABS: ALT/SGPT 20 U/L (12-78); AST/SGOT 13 U/L (15-37); Albumin 3.4 g/dL (3.4-5.0); Alkaline Phosphatase 95 U/L (45-117); BUN Blood Urea Nitrogen 5 mg/dL (7-18); Bicarbonate 29 mmol/L (21-32); Bilirubin Direct < 0.1 mg/dL (0-0.2); Bilirubin Total 0.3 mg/dL (0.2-1.0); Glucose Level 97 mg/dL (74-106); NT PRO-BNP 22 pg/mL (<125); Potassium 3.6 mmol/L (3.5-5.1); Protein, Total 7.4 g/dL (6.4-8.2); Sodium Level 137 mmol/L (136-145)
[2021-10-08 18:25] LABS: Urine Specific Gravity/Preg 1.015 (1.005-1.030)
[2021-10-08 18:35] LABS: Urine Blood Trace-intact (Negative); Urine Glucose Negative (Negative); Urine Protein 3+ (Negative); Urine Specific Gravity >=1.030 (1.005-1.030); Urine pH 5.5 (5.0-7.0)
[2021-10-08] MEDS ORDERED: ACETAMINOPHEN 500 MG TAB ONE (21:51)
--- NOTE | 2021-10-08 22:22 | ER ---
Nurse's Notes [facility] Name: Susana Tamayo Age: 41 yrs Sex: Female : 1980 Arrival Date: 10/08/2021 Time: 15:36 Bed 28 Private MD: Diagnosis: Chest pain, unspecified;Anxiety disorder, unspecified Presentation: 10/08 15:46 Chief complaint: Patient states: Left sided chest pain x 2 weeks, worse today, worse jl7 with deep breathing, pt at [facility] and they sent me to be evaluated. Coronavirus screen: At this time, the client does not indicate any symptoms associated with coronavirus-19. Ebola Screen: No symptoms or risks identified at this time. Initial Sepsis Screen: Does the patient meet any 2 criteria? No. Patient's initial sepsis screen is negative. Does the patient have a suspected source of infection? No. Patient's initial sepsis screen is negative. Risk Assessment: Do you want to hurt yourself or someone else? Patient reports no desire to harm self or others. Onset of symptoms is unknown. 15:46 Method Of Arrival: Ambulatory 7 15:46 Acuity: DIMPLE 3 jl7 Triage Assessment: 15:48 General: Appears in no apparent distress. uncomfortable, Behavior is calm, cooperative, jl7 appropriate for age. Pain: Complains of pain in left breast Pain radiates to left subscapular area Pain currently is 8 out of 10 on a pain scale. Cardiovascular: Patient's skin is warm and dry. 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 - Social history:: Smoking status: Patient reports the use of cigarette tobacco products, smokes one-half pack cigarettes per day. Screenin:42 Abuse screen: Denies threats or abuse. Denies injuries from another. Nutritional eo2 screening: No deficits noted. Tuberculosis screening: No symptoms or risk factors identified. Fall Risk None identified. Assessment: 16:56 General: Appears in no apparent distress. comfortable, Behavior is calm, cooperative. eo2 Pain: Complains of pain in right subscapular area and back and left subscapular area and chest and left breast Pain began this morning. Neuro: Level of Consciousness is awake, alert, obeys commands, Oriented to person, place, time, situation, Reports headache Denies dizziness. Cardiovascular: Reports chest pain, Heart tones S1 S2 Capillary refill < 3 seconds. Respiratory: Reports cough that is occasional, dry Airway is patent Breath sounds are clear bilaterally. Denies shortness of breath. GI: No deficits noted. Patient currently denies diarrhea, nausea, vomiting. Vital Signs: 15:46 BP 154 / 90; Pulse 95; Resp 17; Temp 98.7; Pulse Ox 100% on R/A; Weight 87.54 kg; jl7 Height 5 ft. 9 in. (175.26 cm); Pain 8/10; 16:42 BP 122 / 84; Pulse 69; Resp 17; Pulse Ox 97% ; Pain 8/10; eo2 17:00 BP 109 / 67; Pulse 83; Resp 22; Pulse Ox 97% ; eo2 17:42 Pain 6/10; eo2 18:00 BP 112 / 62; Pulse 81; Resp 20; Pulse Ox 97% ; eo2 20:53 BP 128 / 88; Pulse 84; Resp 16; Pulse Ox 97% on R/A; st1 15:46 Body Mass Index 28.50 (87.54 kg, 175.26 cm) jl7 Vitals: 16:42 Cardiac Rhythm Assessment Regular Sinus rhythm. eo2 ED Course: 15:36 Patient arrived in ED. as 15:48 Triage completed. jl7 15:48 Arm band placed on right wrist. jl7 15:54 Piero Marie PA is PHCP. cp 15:54 Sebas Mccollum MD is Attending Physician. cp 16:31 XRAY Chest (1 view) In Process Unspecified. EDMS 16:33 Venus Diaz, IBETH is Primary Nurse. eo2 16:42 Patient has correct armband on for positive identification. pvc monitor on. Pulse eo2 ox on. NIBP on. Door closed. Noise minimized. Warm blanket given. Pillow given. 16:42 No provider procedures requiring assistance completed. Patient maintains SpO2 eo2 saturation greater than 95% on room air. 16:45 Initial lab(s) drawn, by me, sent to lab. Inserted saline lock: 22 gauge in left em1 antecubital area, using aseptic technique. Blood collected. 16:47 Basic Metabolic Panel Sent. eo2 16:47 CBC with Diff Sent. eo2 16:47 LFT's Sent. eo2 16:47 Magnesium Sent. eo2 16:47 NT PRO-BNP Sent. eo2 16:48 PT-INR Sent. eo2 16:48 Troponin HS Sent. eo2 16:48 D-Dimer Sent. eo2 16:52 Urine Drug Screen Sent. eo2 17:28 Urine --Ancillary (enter results) Sent. eo2 19:09 Report given to Rosa Maria CRISTINA. eo2 23:18 IV discontinued, intact, bleeding controlled, No redness/swelling at site. Pressure st1 dressing applied. Administered Medications: 16:51 Drug: Ketorolac 15 mg Route: IVP; Site: left forearm; eo2 17:50 Follow up: Response: No adverse reaction; Pain is decreased eo2 16:51 Drug: NS 0.9% 500 ml Route: IV; Rate: bolus; Site: left forearm; eo2 17:40 Follow up: IV Status: Completed infusion; IV Intake: 500ml eo2 21:52 Drug: Tylenol 1000 mg Route: PO; st1 Intake: 17:40 IV: 500ml; Total: 500ml. eo2 Outcome: 22:21 Discharge ordered by . marie 23:18 Discharged to home ambulatory. st1 23:18 Condition: good 23:18 Discharge instructions given to patient, Instructed on discharge instructions, follow up and referral plans. no drinking with medication, medication usage, Demonstrated understanding of instructions, follow-up care, medications. 23:23 Patient left the ED. st1 Signatures: Dispatcher [employer] EDMS Marlene Tavares Eric em1 Piero Marie PA PA cp Leal, Jahala RN RN jl7 Venus Diaz RN RN eo2 Rosa Maria Mera RN RN st1
--- NOTE | 2021-10-08 22:22 | EDPHYS ---
Physician Documentation [facility] Name: Susana Tamayo Age: 41 yrs Sex: Female : 1980 Arrival Date: 10/08/2021 Time: 15:36 Bed 28 Private MD: ED Physician Sebas Mccollum HPI: 10/08 16:14 This 41 yrs old Female presents to ER via Ambulatory with complaints of Chest Pain. cp 16:15 The patient or guardian reports chest pain that is located primarily in the left side cp of chest below breast. 16:15 The pain radiates to back. Associated signs and symptoms: Pertinent negatives: cp abdominal pain, cough, diaphoresis, lower extremity pain, lower extremity swelling, shortness of breath, syncope. The chest pain is described as squeezing, twisting. Duration: The patient or guardian reports multiple episodes, that are intermittent. Modifying factors: the symptoms are aggravated by emotionally stressful situations. 16:15 Severity of pain: in the emergency department the pain has improved mildly. cp 16:15 Patient reports she has been dealing with health issues for multiple family members cp that have contributed to increased stress and believes the chest pain has been caused by anxiety. 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 - Social history:: Smoking status: Patient reports the use of cigarette tobacco products, smokes one-half pack cigarettes per day. ROS: 16:20 Constitutional: Negative for body aches, chills, fever, poor PO intake. cp 16:20 Eyes: Negative for injury, pain, redness, and discharge. cp 16:20 ENT: Negative for ear pain, sore throat, difficulty swallowing, difficulty handling secretions. 16:20 Cardiovascular: Positive for chest pain, of the below left breast, Negative for edema, palpitations. 16:20 Respiratory: Negative for shortness of breath, wheezing. 16:20 Abdomen/GI: Negative for abdominal pain, nausea, vomiting, and diarrhea. 16:20 Back: Positive for radiated pain, of the left subscapular area and right subscapular area. 16:20 Neuro: Negative for altered mental status, headache, syncope, weakness. 16:20 All other systems are negative. Exam: 15:57 ECG was reviewed by the Attending Physician. cp 16:25 Constitutional: The patient appears in no acute distress, alert, awake, cp non-diaphoretic, non-toxic, well developed, well nourished. 16:25 Head/Face: Normocephalic, atraumatic. cp 16:25 Eyes: Periorbital structures: appear normal, Conjunctiva: normal, no exudate, no injection, Sclera: no appreciated abnormality, Lids and lashes: appear normal, bilaterally. 16:25 ENT: External ear(s): are unremarkable, Nose: is normal, Mouth: Lips: moist, Oral mucosa: moist, Posterior pharynx: Airway: no evidence of obstruction, patent, swelling, is not appreciated, erythema, is not appreciated, exudate, is not appreciated. 16:25 Neck: ROM/movement: is normal, is supple, without pain, no range of motions limitations. 16:25 Chest/axilla: Inspection: normal. 16:25 Cardiovascular: Rate: normal, Rhythm: regular, Heart sounds: murmur, not appreciated, Edema: is not appreciated, JVD: is not appreciated. 16:25 Respiratory: the patient does not display signs of respiratory distress, Respirations: normal, no use of accessory muscles, no retractions, labored breathing, is not present, Breath sounds: are clear throughout, no decreased breath sounds, no stridor, no wheezing. 16:25 Abdomen/GI: Inspection: abdomen appears normal, Palpation: abdomen is soft and non-tender, in all quadrants, rebound tenderness, is not appreciated, involuntary guarding, is not appreciated. 16:25 Back: pain, that is mild, of the left subscapular area and right subscapular area, ROM is normal. 16:25 Neuro: Orientation: to person, place \T\ time. Mentation: is normal, Cerebellar function: is grossly normal, Motor: moves all fours, strength is normal, Sensation: is normal. Vital Signs: 15:46 BP 154 / 90; Pulse 95; Resp 17; Temp 98.7; Pulse Ox 100% on R/A; Weight 87.54 kg; jl7 Height 5 ft. 9 in. (175.26 cm); Pain 8/10; 16:42 BP 122 / 84; Pulse 69; Resp 17; Pulse Ox 97% ; Pain 8/10; eo2 17:00 BP 109 / 67; Pulse 83; Resp 22; Pulse Ox 97% ; eo2 17:42 Pain 6/10; eo2 18:00 BP 112 / 62; Pulse 81; Resp 20; Pulse Ox 97% ; eo2 20:53 BP 128 / 88; Pulse 84; Resp 16; Pulse Ox 97% on R/A; st1 15:46 Body Mass Index 28.50 (87.54 kg, 175.26 cm) jl7 MDM: 16:05 Patient medically screened. cp 17:00 Differential diagnosis: acute myocardial infarction, anxiety, cholecystitis, cp Cholelithiasis costochondritis, pancreatitis, pleurisy, pneumonia, pneumothorax, pulmonary embolus. 22:20 Data reviewed: vital signs, nurses notes, lab test result(s), EKG, radiologic studies, cp plain films. 22:20 Test interpretation: by ED physician or midlevel provider: ECG, plain radiologic cp studies. Counseling: I had a detailed discussion with the patient and/or guardian regarding: the historical points, exam findings, and any diagnostic results supporting the discharge/admit diagnosis, lab results, radiology results, to return to the emergency department if symptoms worsen or persist or if there are any questions or concerns that arise at home. Response to treatment: the patient's symptoms have markedly improved after treatment, VSS. Patient sleeping in exam room. Will discharge to home for continued monitoring. 10/08 16:00 Order name: Urine Drug Screen; Complete Time: 17:39 cp 10/08 17:39 Interpretation: Normal except: JAIMEE POSITIVE. cp 10/08 16:14 Order name: Basic Metabolic Panel; Complete Time: 22:20 cp 10/08 18:10 Interpretation: Normal except: BUN 5. cp 10/08 16:14 Order name: CBC with Diff; Complete Time: 17:39 cp 10/08 18:10 Interpretation: Normal except: MPV 6.3. cp 10/08 16:14 Order name: LFT's; Complete Time: 22:20 cp 02/04 18:10 Interpretation: Normal except: AST 13; GLOB 4.0; A/G 0.9. cp 02/04 16:14 Order name: Magnesium; Complete Time: 22:20 cp 02/04 16:14 Order name: NT PRO-BNP; Complete Time: 22:20 cp 02/04 16:14 Order name: PT-INR; Complete Time: 17:39 cp 02/04 16:14 Order name: Troponin HS; Complete Time: 22:20 cp 02/04 16:14 Order name: D-Dimer; Complete Time: 17:39 cp 02/04 18:10 Interpretation: D-DIMER 287; Reviewed. cp 02/04 16:43 Order name: Urine Dipstick-Ancillary; Complete Time: 17:39 EDMS 02/04 16:54 Order name: Urine --Ancillary (enter results); Complete Time: 19:32 eb 04 18:35 Order name: Urine Dipstick-Ancillary EDMS 04 18:36 Order name: Urine Dipstick-Ancillary; Complete Time: 19:32 EDMS 02/04 19:32 Interpretation: Normal except: UKET Trace; UBLD Trace-intact; UPROT 3+. cp 02/04 19:32 Order name: Troponin HS; Complete Time: 22:20 cp 02/04 16:00 Order name: Urine Dipstick-Ancillary (obtain specimen); Complete Time: 16:45 cp 02/04 16:00 Order name: Urine Test (obtain specimen); Complete Time: 16:45 cp 02/04 16:00 Order name: EKG; Complete Time: 16:00 cp 02/04 16:00 Order name: EKG - Nurse/Tech; Complete Time: 16:47 cp 02/04 16:14 Order name: XRAY Chest (1 view); Complete Time: 17:39 cp 02/04 16:14 Order name: Cardiac monitoring; Complete Time: 16:47 cp 02/04 16:14 Order name: IV Saline Lock; Complete Time: 16:45 cp 02/04 16:14 Order name: Labs collected and sent; Complete Time: 16:45 cp 02/04 16:14 Order name: O2 Per Protocol; Complete Time: 16:51 cp 02/04 16:14 Order name: O2 Sat Monitoring; Complete Time: 16:51 cp EC:57 Rate is 100 beats/min. Rhythm is regular. CT interval is normal. QRS interval is cp normal. QT interval is normal. Interpreted by me. Reviewed by me. Administered Medications: 16:51 Drug: Ketorolac 15 mg Route: IVP; Site: left forearm; eo2 17:50 Follow up: Response: No adverse reaction; Pain is decreased eo2 16:51 Drug: NS 0.9% 500 ml Route: IV; Rate: bolus; Site: left forearm; eo2 17:40 Follow up: IV Status: Completed infusion; IV Intake: 500ml eo2 21:52 Drug: Tylenol 1000 mg Route: PO; st1 Disposition: 10/09 16:09 Co-signature as Attending Physician, Sebas Mccollum MD I agree with the assessment and kdr plan of care. Disposition Summary: 10/08/21 22:21 Discharge Ordered Location: Home cp Problem: new cp Symptoms: have improved cp Condition: Stable cp Diagnosis - Chest pain, unspecified cp - Anxiety disorder, unspecified cp Followup: cp - With: Private Physician - When: 2 - 3 days - Reason: Recheck today's complaints Discharge Instructions: - Discharge Summary Sheet cp - Nonspecific Chest Pain, Adult cp - Aspirin and Your Heart cp - Managing Anxiety, Adult cp - Form - Excuse from Work, School, or Physical Activity cp Forms: - Medication Reconciliation Form cp - Thank You Letter cp - Antibiotic Education cp - Prescription Opioid Use cp Prescriptions: - Vistaril 50 mg Oral capsule - take 1 capsule by ORAL route 4 times per day as needed for anxiety; 30 capsule; cp Refills: 0, Product Selection Permitted - Naprosyn 500 mg Oral Tablet - take 1 tablet by ORAL route 2 times per day take with food; 20 tablet; Refills: cp 0, Product Selection Permitted Signatures: Dispatcher [employer] Sebas Sandhu MD MD kdr Piero Marie PA PA cp Alisson Issa RN RN jl7 Venus Diaz RN RN eo2 Rosa Maria Mera RN RN st1
[2021-10-08 23:42] VITALS: TEMP 98.7
[2021-10-08 23:44] VITALS: O2SAT 97
[2021-10-08 23:49] VITALS: BP 128/88
--- NOTE | 2021-10-10 14:46 | EKG ---
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
== END 2021-10-08 23:23 | disposition home or self-care (01) ==
LOC: ER 15:34
DX: F41.9 Anxiety disorder, unspecified (principal); F17.210 Nicotine dependence, cigarettes, uncomplicated
CPT/HCPCS: 36415; 71045; 80048; 80076; 80307; 81003; 81025; 83735; 83880; 84484; 85025; 85379; 85610; 93005; 96361; 96374; 99285; J7040

== ENCOUNTER 2022-05-30 11:19 | Emergency (ER) | payer SELFPAY ==
--- OUTSIDE RECORDS SUMMARY | 2022-05-30 11:24 | XMS REPORT | Continuity of Care Document ---
:1980 Author Organization [facility] t Address [address] [place] [address] Care Team Providers Name Role Phone Elie Kearney Primary Care Physician Sidra Suh DO Attending Clinician Danielle Montaño Attending Clinician Doctor Unassigned, [place] Attending Clinician Unavailable Therapy, [facility] Covid Infusion Attending Clinician Unavailable Darrell Francois MD Attending Clinician DARRELL FRANCOIS Attending Clinician Unavailable Mary Beth Cisneros Attending Clinician Geno Harris Attending Clinician Huang Goyal Attending Clinician Physician, No Primary or Family Admitting Clinician Unavaila ble Payers Payer Name Policy Type Policy Number [...] Allergie 04-11 [place] 00:00: d [address] [facility] No Known DA Active U [facility] Allergie 04-11 [place] 00:00: d [address] [facility] PROPOXYP DRUG Active N/V Univers HENE 2-08 ity of N-ACETAM 00:00: [place] INOPHEN 00 [facility] Propoxyp Propensi Active Nausea Univer s hene ty to and/or 2-08 ity of N-Acetam adverse Vomiting 00:00: [place] inophen reaction [facility] s [place] Social History Social Habit Start Date Stop Date Quantity Comments Source History of tobacco Cigarette Smoker University of use [facility] Exposure to Not sure University of SARS-CoV-2 (event) [facility] Cigarettes smoked 2021-05-03 2021-05-03 Univers ity of current (pack per 00:00:00 00:00:00 ) - Reported Branch Cigarette 2021-05-03 2021-05-03 University of pack-years 00:00:00 00:00:00 [facility] Tobacco use and 2021-05-03 2021-05-03 Never used Universit y of exposure 00:00:00 00:00:00 [facility] Alcohol intake 2021-05-03 2021-05-03 University of 00:00:00 00:00:00 [facility] Sex Assigned At [birth year] Universit y of 00:00:00 00:00:00 [facility] Smoking Status Start Date Stop Date Source Current every day smoker 2021-05-03 00:00:00 Uni versity of [facility] Medications Ordered Filled Start Stop Current Ordering Indication Dosage Frequency Signature Comments Components Source Medication Medication Date Date Medication? Clinician (SIG) Name Name casirivimab 2020- No [id number] 1200mg Univers -imdevimab 04-22 ity of (REGEN-COV 19:30: 19:24 [place] (EUA)) 00 :00 Medical 1,200 mg in Branch NaCl 0.9% (NS) 60 mL IV infusion casirivimab 2020- No [id number] 1200mg 1,200 mg, Univers -imdevimab 04-22 IV ity of (REGEN-COV 19:30: 19:24 Infusion, [place] (EUA[place] 00 :00 ONCE, Medical 1,200 mg in Administer Br anch NaCl 0.9% over 20 (NS) 60 mL Minutes, IV infusion Karina 04/22/21 at 1430, For 1 dose
Ad tight cooper as an IV infusion via pump or [...] Fri Med ical ing tablet 04/16/21 at [facility] 4 mg 1230, Routine dexamethaso 2020- No [...] Restricted medication : EMERGENCY ROOM, ondansetron Yes [id number] 4mg Take 1 Univers (ZOFRAN 04-16 tablet by ity of ODT) 4 mg 00:00: mouth [place] disintegrat 00 every 8 Medic al ing tablet (eight) Branch hours as needed for Nausea and Vomiting (N/V). bromphenira Yes [id number] 5mL Take 5 mL Univers mine-pseudo 8-13 by mouth 4 it y of ephedrine-D 00:00: (four[place] (BROMFED 00 times Medical DM) 2-30-10 daily as Bran ch mg/5 mL needed for syrup Congestion /Allergies . ondansetron 2020-0 Yes [id number] 4mg Take 1 Univers (ZOFRAN 8-13 tablet by ity of ODT) 4 mg 00:00: mouth [place] disintegrat 00 every 8 Medic al ing tablet (eight) Branch hours as needed for Nausea and Vomiting (N/V). bromphenira 2021-0 Yes [id number] 5mL Take 5 mL Univers mine-pseudo 8-13 by mouth 4 it y of ephedrine-D 00:00: (four[place] (BROMFED 00 times Medical DM) 2-30-10 daily as Bran ch mg/5 mL needed for syrup Congestion /Allergies . ondansetron 2020-0 Yes [id number] 4mg Take 1 Univers (ZOFRAN 8-13 tablet by ity of ODT) 4 mg 00:00: mouth [place] disintegrat 00 every 8 Medic al ing tablet (eight) Branch hours as needed for Nausea and Vomiting (N/V). bromphenira 2020-0 Yes [id number] 5mL Take 5 mL Univers mine-pseudo 8-13 by mouth 4 it y of ephedrine-D 00:00: (four[place] (BROMFED 00 times Medical DM) 2-30-10 daily as Bran ch mg/5 mL needed for syrup Congestion /Allergies . ondansetron 2020-0 Yes [id number] 4mg Take 1 Univers (ZOFRAN 8-13 tablet by ity of ODT) 4 mg 00:00: mouth [place] disintegrat 00 every 8 Medic al ing tablet (eight) Branch hours as needed for Nausea and Vomiting (N/V). bromphenira 2021-0 Yes [id number] 5mL Take 5 mL Univers mine-pseudo 8-13 by mouth 4 it y of ephedrine-D 00:00: (four[place] (BROMFED 00 times Medical DM) 2-30-10 daily as Bran ch mg/5 mL needed for syrup Congestion /Allergies . ondansetron 2021-0 Yes [id number] 4mg Take 1 Univers (ZOFRAN 8-13 tablet by ity of ODT) 4 mg 00:00: mouth [place] disintegrat 00 every 8 Medic al ing tablet (eight) Branch hours as needed for Nausea and Vomiting (N/V). bromphenira Yes [id number] 5mL Take 5 mL Univers mine-pseudo 8-13 by mouth 4 it y of ephedrine-D 00:00: (four[place] (BROMFED 00 times Medical DM) 2-30-10 daily as Bran ch mg/5 mL needed for syrup Congestion /Allergies . ondansetron Yes [id number] 4mg Take 1 Univers (ZOFRAN 8-13 tablet by ity of ODT) 4 mg 00:00: mouth [place] disintegrat 00 every 8 Medic al ing tablet (eight) Branch hours as needed for Nausea and Vomiting (N/V). bromphenira Yes [id number] 5mL Take 5 mL Univers mine-pseudo 8-13 by mouth 4 it y of ephedrine-D 00:00: (four) [place] (BROMFED 00 times Medical DM) 2-30-10 daily as Bran ch mg/5 mL needed for syrup Congestion /Allergies . predniSONE 2020- No [id number] 40mg Take 2 Univers 20 mg 8-13 08-19 tablets by ity of tablet 00:00: 04:59 mouth [place] 00 :00 daily for Medical 5 days. Branch dexamethaso 2020- No 10mg 10 mg, Uni vers ne 12-29 Intramuscu ity of (DECADRON 01:15: 01:15 lar, ONCE, [place] PHOSPHATE) 00 :00 1 dose, Medica l injection [facility] Branch 10 mg 12/28/20 at 2014, STAT ketorolac 2020- No 30mg 30 mg, Unive rs (TORADOL) 12-29 Intramuscu ity of injection 01:15: 00:22 lar, ONCE, [place] 30 mg 00 :00 1 dose, Medical Mon Branch 12/28/20 at 2014, SHEBA
Fa culty member approving Restricted medication : GENO VILLALOBOS ibuprofen Yes [id number] 600mg Take 1 Univers 600 mg 4-26 tablet by ity of tablet 00:00: mouth [place] 00 every 6 Medical (six) Branch hours as needed for Pain (scale 4-6). ibuprofen 2020-0 Yes [id number] 600mg Take 1 Univers 600 mg 4-26 tablet by ity of tablet 00:00: mouth [place] 00 every 6 Medical (six) Branch hours as needed for Pain (scale 4-6). ibuprofen 2020-0 Yes [id number] 600mg Take 1 Univers 600 mg 4-26 tablet by ity of tablet 00:00: mouth [place] 00 every 6 Medical (six) Branch hours as needed for Pain (scale 4-6). ibuprofen 2020-0 Yes [id number] 600mg Take 1 Univers 600 mg 4-26 tablet by ity of tablet 00:00: mouth [place] 00 every 6 Medical (six) Branch hours as needed for Pain (scale 4-6). ibuprofen 2020-0 Yes [id number] 600mg Take 1 Univers 600 mg 4-26 tablet by ity of tablet 00:00: mouth [place] 00 every 6 Medical (six) Branch hours as needed for Pain (scale 4-6). ibuprofen 2020-0 Yes [id number] 600mg Take 1 Univers 600 mg 4-26 tablet by ity of tablet 00:00: mouth [place] 00 every 6 Medical (six) Branch hours as needed for Pain (scale 4-6). ibuprofen 2020-0 Yes [id number] 600mg Take 1 Univers 600 mg 4-26 tablet by ity of tablet 00:00: mouth [place] 00 every 6 Medical (six) Branch hours as needed for Pain (scale 4-6). cephALEXin 2020- No [id number] 500mg Take 1 Univers 500 mg 4-26 05-04 capsule by ity of capsule 00:00: 04:59 mouth 4 [place] 00 :00 (four) Medical times Branch daily for 7 days. KCL 2020-2020- No 40meq 40 mEq, Univers (KLOR-CON 11-25 Oral, ity of M20) tablet 23:00: 22:04 ONCE, 1 [place] 40 mEq 00 :00 dose, Wed Medical 11/25/20 at Branch 1800, SHEBA aspirin 2020-2020- No 325mg 325 mg, Unive rs tablet 325 11-25 Oral, ity of mg 21:30: 20:34 ONCE, 1 [place] 00 :00 dose, Wed Medical 11/25/20 at Branch 1630, STAT albuterol [...] Branch tablet hours as needed (t). triamcinolo 2012-0 Yes [id number] Apply to [facility] 7-18 area(s) 2 ity of acetonide 00:00: (two) [place] (KENALOG) 00 times Medical 0.1 % daily. Branch ointment triamcinolo 2012- Yes [id number] Apply to [facility] 7-18 area(s) 2 ity of acetonide 00:00: (two) [place] (KENALOG) 00 times Medical 0.1 % daily. Branch ointment triamcinolo Yes [id number] Apply to [facility] 7-18 area(s) 2 ity of acetonide 00:00: (two) [place] (KENALOG) 00 times Medical 0.1 % daily. Branch ointment triamcinolo Yes [id number] Apply to [facility] 7-18 area(s) 2 ity of acetonide 00:00: (two) [place] (KENALOG) 00 times Medical 0.1 % daily. Branch ointment triamcinolo Yes [id number] Apply to [facility] 7-18 area(s) 2 ity of acetonide 00:00: (two) [place] (KENALOG) 00 times Medical 0.1 % daily. Branch ointment triamcinolo Yes [id number] Apply to [facility] 7-18 area(s) 2 ity of acetonide 00:00: (two) [place] (KENALOG) 00 times Medical 0.1 % daily. Branch ointment triamcinolo 2012- Yes [id number] Apply to [facility] 7-18 area(s) 2 ity of acetonide 00:00: (two) [place] (KENALOG) 00 times Medical 0.1 % daily. Branch ointment triamcinolo Yes [id number] Apply to [facility] 7-18 area(s) 2 ity of acetonide 00:00: (two) [place] (KENALOG) 00 times Medical 0.1 % daily. Branch ointment Vital Signs Vital Name Observation Time Observation Value Comments Source Systolic blood 2021-05-03 17:27:00 127 [facility] Diastolic blood 2021-05-03 17:27:00 74 mm[facility]Hg[facility] Heart rate 2021-05-03 17:27:00 94 /min [facility] Body temperature 2021-05-03 17:27:[address] [facility] ersity of [place] [facility] Respiratory rate 2021-05-03 17:27:00 16 /min Univ ersity of [place] [facility] Body height 2021-05-03 17:27:00 175.3 cm Universi ty of [place] [facility] Body weight 2021-05-03 17:27:00 68.04 kg Universi ty of [place] [facility] BMI 2021-05-03 17:27:00 22.15 kg/m2 Universi ty of [place] [facility] Oxygen saturation in 2021-05-03 17:27:00 97 /min University of Arterial blood by [facility] Pulse oximetry Branch Systolic blood 2021-04-22 20:25:00 99 mm[Hg] Univer sity of pressure [place] [facility] Diastolic blood 2021-04-22 20:25:00 64 mm[Hg] Unive rsity of pressure [place] [facility] Heart rate 2021-04-22 20:25:00 75 /min Universi ty of [place] [facility] Body temperature 2021-04-22 20:25:00 36.5 Jeanette Univ ersity of [place] [facility] Respiratory rate 2021-04-22 20:25:00 17 /min Univ ersity of [place] [facility] Oxygen saturation in 2021-04-22 20:25:00 99 /min University of Arterial blood by [facility] Pulse oximetry Branch Body height 2021-04-22 18:25:00 175.3 cm Universi ty of [place] [facility] Body weight 2021-04-22 18:25:00 84.823 kg Universi ty of [place] [facility] BMI 2021-04-22 18:25:00 27.62 kg/m2 Universi ty [facility] [place] [facility] Systolic blood 2021-04-16 16:16:00 137 mm[Hg] Univer sity of pressure [place] [facility] Diastolic blood 2021-04-16 16:16:00 68 mm[Hg] Unive rsity of pressure [place] [facility] Heart rate 2021-04-16 16:16:00 78 /min Universi ty of [place] [facility] Body temperature 2021-04-16 16:16:00 36.83 Jeanette Univ ersity of [place] [facility] Respiratory rate 2021-04-16 16:16:00 18 /min Univ ersity of [place] [facility] Body height 2021-04-16 16:16:00 175.3 cm Universi ty [facility] [place] [facility] Body weight 2021-04-16 16:16:00 80.74 kg Universi ty [facility] [place] [facility] BMI 2021-04-16 16:16:00 26.29 kg/m2 Universi ty of [place] [facility] Oxygen saturation in 2021-04-16 16:16:00 97 /min University of Arterial blood by [facility] Pulse oximetry Branch Systolic blood 2020-12-29 00:00:00 123 mm[Hg] Univer sity of pressure [place] [facility] Diastolic blood 2020-12-29 00:00:00 82 mm[Hg] Unive rsity of pressure [place] [facility] Heart rate 2020-12-29 00:00:00 77 /min Universi ty [facility] [place] [facility] Respiratory rate 2020-12-29 00:00:00 16 /min Univ ersity of [place] [facility] Oxygen saturation in 2020-12-29 00:00:00 99 /min University of Arterial blood by [facility] Pulse oximetry Branch Body temperature 2020-12-28 20:34:00 37 Jeanette Univ ersity of [place] [facility] Body weight 2020-12-28 20:34:00 68.04 kg Universi ty [facility] [place] [facility] BMI 2020-12-28 20:34:00 22.81 kg/m2 Universi ty [facility] [place] [facility] Systolic blood 2020-12-29 00:00:00 123 mm[Hg] Univer sity of pressure [place] [facility] Diastolic blood 2020-12-29 00:00:00 82 mm[Hg] Unive rsity of pressure [place] [facility] Heart rate 2020-12-29 00:00:00 77 /min Universi ty [facility] [place] [facility] Respiratory rate 2020-12-29 00:00:00 16 /min Univ ersity of [place] [facility] Oxygen saturation in 2020-12-29 00:00:00 99 /min University of Arterial blood by [facility] Pulse oximetry Branch Body temperature 2020-12-28 20:34:00 37 Jeanette Univ ersity of [place] [facility] Body weight 2020-12-28 20:34:00 68.04 kg Universi ty [facility] [place] [facility] BMI 2020-12-28 20:34:00 22.81 kg/m2 Universi ty [facility] [place] [facility] Systolic blood 2020-11-25 22:00:00 125 mm[Hg] Univer sity of pressure [place] [facility] Diastolic blood 2020-11-25 22:00:00 87 mm[Hg] Unive rsity of pressure [place] [facility] Heart rate 2020-11-25 22:00:00 89 /min Universi ty [facility] [place] [facility] Respiratory rate 2020-11-25 22:00:00 19 /min Univ ersity of [place] [facility] Oxygen saturation in 2020-11-25 22:00:00 96 /min University of Arterial blood by [facility] Pulse oximetry Branch Body temperature 2020-11-25 20:16:[address] [facility] ersity of [place] [facility] Body weight 2020-11-25 20:16:00 68.04 kg Universi ty [facility] [place] [facility] BMI 2020-11-25 20:16:00 22.81 kg/m2 Universi ty [facility] [place] [facility] Systolic blood 2020-11-25 22:00:00 125 mm[Hg] Univer sity of pressure [place] [facility] Diastolic blood 2020-11-25 22:00:00 87 mm[Hg] Unive rsity of pressure [place] [facility] Heart rate 2020-11-25 22:00:00 89 /min Universi ty [facility] [place] [facility] Respiratory rate 2020-11-25 22:00:00 19 /min Univ ersity of [place] [facility] Oxygen saturation in 2020-11-25 22:00:00 96 /min University of Arterial blood by [facility] Pulse oximetry Branch Body temperature 2020-11-25 20:16:[address] [facility] ersity of [place] [facility] Body weight 2020-11-25 20:16:00 68.04 kg Universi ty [facility] [place] [facility] BMI 2020-11-25 20:16:00 22.81 kg/m2 Universi ty [facility] Medical Branch Procedures Procedure Date / Time Performed Performing Clinician [facility] e CONSENT/REFUSAL FOR 2021-05-03 16:52:48 Doctor Unassigned, No [facility] DIAGNOSIS AND Name Medical Branch TREATMENT ASSIGNMENT OF BENEFITS 2021-04-16 17:52:37 Doctor Unassigned, No [facility] Medical Branch RAPID STREP SCREEN FOR 2021-04-16 16:30:00 Mary Beth Santacruz [facility] GROUP A Medical Branch CONSENT/REFUSAL FOR 2021-04-16 15:59:46 Doctor Unassigned, No [facility] Name Medical Branch TREATMENT URINALYSIS 2020-12-29 00:19:00 Geno Villalobos [facility] CONSENT/REFUSAL FOR 2020-12-28 20:23:27 [facility], [facility] Medical Branch TREATMENT TROPONIN I 2020-11-25 22:10:00 Frank [facility] XR CHEST 1 VW 2020-11-25 20:46:11 [facility] LIPASE 2020-11-25 20:34:00 Frank [facility] TROPONIN I 2020-11-25 20:34:00 [facility] HEPATIC FUNCTION PANEL 2020-11-25 20:34:00 Huang Marie [facility] ([id number]) Medical [place] (ALB,T.PRO,BILI T,BU/BC,ALT,AST,ALK PHOS) BASIC METABOLIC PANEL 2020-11-25 20:34:00 Huang Marie [facility] (NA, K, CL, CO2, Medical Branch GLUCOSE, BUN, CREATININE, CA) CBC WITH DIFF 2020-11-25 20:34:00 [facility] N-TERMINAL PRO-BNP 2020-11-25 20:34:00 Huang Marie [facility] HB ECG ROUTINE & 2020-11-25 20:22:52 [facility] RHYTHM STRIP [facility] Branch Encounters Start End Encounter Admission Attending Care Care Encounter Source Date/Time Date/Time Type Type Clinicians Facility Department ID 2021-07-05 Emergency [facility] [id number] Univers 19:02:36 ity [facility] 2021-07-05 Emergency [facility] [id number] Univers 15:21:12 [facility] 2021-07-04 Emergency [facility] [id number] Univers 15:22:03 ity [facility] 2021-07-04 Emergency [facility] [id number] Univers 08:16:41 [facility] 2021-05-032021-05-03 Emergency Sidra Suh [facility] [id number] Univers 12:30:00 21:32:00 Danielle [place] [id number] ity of [place] 4.2.7.2.686 [facility] [id number] [place] [id number] Branch 2021-05-03 2021-05-03 Orders Doctor FERMÍN [id number] Univers 00:00:00 00:00:00 Only Unassigned, ROLAND [id number] ity of [place] [facility] 4.2.7.2.686 Joce as [id number] [facility] 009 Branch 2021-04-22 2021-04-22 Nurse Therapy, Adc Covid Infusion [facility] [id number] Univers 12:53:19 13:53:19 Visit Darrell Francois [id number] ity of [place] 4.2.7.2.686 [facility] Surgical [id number] [facility] 053 Branch 2021-04-22 2021-04-22 Outpatient R [facility] [id number] Univers 13:00:00 13:00:00 [id number] ity [facility] 2021-04-22 2021-04-22 Outpatient R IHSAN, [facility] [id number] Univers 13:00:00 13:00:00 DARRELL ity [facility] 2021-04-16 2021-04-16 Emergency Noam, [facility] [id number] Univers 11:17:00 13:59:00 Mary Beth Grace [id number] i ty of [place] 4.2.7.2.686 [facility] [id number] [place] [address] Branch 2020-12-28 2020-12-28 Emergency Idania, [facility] [id number] Univers 17:44:00 21:05:00 Geno Grace [id number] ity of [place] 4.2.7.2.686 [facility] [id number] [address] 2020-12-28 2020-12-28 Emergency Ibikunle, [facility] [id number] 17:44:00 21:05:00 Geno Grace [id number] [place] 4.2.7.2.686 [place] [id number] [facility] 2020-11-25 2020-11-25 Emergency Frank, [facility] [id number] [facility] 15:17:00 17:55:00 Huang Grace [id number] i ty of [place] 4.2.7.2.686 [facility] [id number] [place] [address] Branch 2020-11-25 2020-11-25 Emergency Frank, [facility] [id number] 15:17:00 17:55:00 Huang Grace [id number] [place] 4.2.7.2.686 [place] [id number] [facility] 2020-04-11 2020-04-14 Inpatient HCAMN VIVIEN [id number] [facility] 17:34:00 06:46:16 78 [facility] Results Test Description Test Time Test Comments Results Result Comments Source RAPID STREP SCREEN FOR GROUP A 2021-04-16 17:16:32 Test Item Value Reference Range Interpretation Comme nts Streptococcus pyogenes (group A) antigen (test code Negative Ne gative = 41381-1) LYUDMILA (test code = LYUDMILA) Performed on [employer]Now. Lab Interpretation (test code = 79674-4) Normal [facility] [facility]21-[facility]27 00:53:40 Test Item Value Reference Range Interpretation Comments APPEARANCE (test code = Clear Clear 4322348729) COLOR (test code = Straw Yellow A 0286788715) PH (test code = 4.8-8.0 4388668060) SP GRAVITY (test code = 1.003-1.030 1515088630) GLU U QUAL (test code = Normal Normal 6561837638) BLOOD (test code = Negative Negative 1776108536) KETONES (test code = Negative Negative 8965261763) PROTEIN (test code = Negative Negative 2887-8) UROBILIN (test code = Normal Normal 0836791592) BILIRUBIN (test code = Negative Negative 1091121482) NITRITE (test code = Negative Negative 9472274168) LEUK ADALI (test code = Negative Negative 5603090061) RBC/HPF (test code = <1 See_Comment [Autom ated message] 4534426328) The system Vi[employer] generated this result transmitted ref erence range: 0 - 3 HP F. The reference range was not used to int erpret this result as normal/abnormal . WBC/HPF (test code = <1 See_Comment [Autom ated message] 5608261464) The system Vi[employer] generated this result transmitted ref erence range: 0 - 5 HP F. The reference range was not used to int erpret this result as normal/abnormal . BACTERIA (test code = Negative Negative 4188196282) Lab Interpretation (test Abnormal code = 05129-1) [facility] [id number] 22:39:08 Test Item Value Reference Range Interpretation Comments TROPONIN I (test 0.000 ng/mL See_Comment [Automated code = 3633258137) message] The system which generated this result [...] ? Lab Interpretation Normal (test code = 46846-0) [facility] [facility] [id number] 21:51:20 Test Item Value Reference Range Interpretation Comments TROPONIN I (test 0.001 ng/mL See_Comment [Automated code = 0064293262) message] The system which generated this result [...] ? Lab Interpretation Normal (test code = 39253-2) [facility] [facility] [id number] 21:39:24 Test Item Value Reference Range Interpretation Comments NT-proBNP (test code 18 pg/mL See_Comment [Autom ated = 1402459832) message] The system which generated this result transmitted reference range : <=125. The reference range was not used to interpret this result as normal/abnormal . LYUDMILA (test code = LYUDMILA) Biotin has been reported to cause a negative bias, interpret results relative to patient's use of biotin. Lab Interpretation Normal (test code = 73639-5) [facility] [facility] (ALB, T.PRO, BILI T, BU/BC, ALT, AST, ALK PHOS)2020-11-25 21:30:41 Test Item Value Reference Range Interpretation Comments TOTAL BILI (test code = 2980075842) 0.5 mg/dL 0.1-1.1 BILI UNCON (test code = 5916215860) 0.4 mg/dL 0.1-1.1 BILI CONJ (test code = 5580303120) 0.0 mg/dL 0.0-0.3 T PROTEIN (test code = 1579849956) 7.2 g/dL 6.3-8.2 ALBUMIN (test code = 6731826632) 4.2 g/dL 3.5-5.0 ALK PHOS (test code = 7657464520) 83 U/L 34-122 ALTv (test code = 1742-6) 15 U/L 5-35 AST(SGOT) (test code = 4318039571) 23 U/L 13-40 Lab Interpretation (test code = Normal 15365-1) [facility] Metabolic Panel (NA, K, CL, CO2, GLUCOSE, BUN, CREATININE, CA)2020-11-25 21:30:20 Test Item Value Reference Range Interpretation Comments NA (test code = 137 mmol/L 135-145 9561674422) K (test code = 3.2 mmol/L 3.5-5.0 L 1283583274) CL (test code = 106 mmol/L 98-108 4930967049) CO2 TOTAL (test code = 23 mmol/L 23-31 6580761669) AGAP (test code = 2-16 8121219413) BUN (test code = 4 mg/dL 7-23 L 3448981641) GLUCOSE (test code = 167 mg/dL 70-110 H 2361632043) CREATININE (test code = 0.60 mg/dL 0.50-1.04 8305216015) CALCIUM (test code = 8.9 mg/dL 8.6-10.6 4528170126) eGFR Calculation mL/min/1.73m2 (Non-) (test code = 0586213838) eGFR Calculation mL/min/1.73m2 () (test code = 9580485162) LYUDMILA (test code = LYUDMILA) Association of [...] tests). Lab Interpretation Abnormal (test code = 24050-3) [facility] [id number] 21:30:20 Test Item Value Reference Range Interpretation Comments LIPASE (test code = 0366704364) 73 U/L 0-220 Lab Interpretation (test code = Normal 52202-3) [facility] 1 [id number] 21:02:07 No acute cardiopulmonary abnormality. Preliminary Report [...] fixation of the left humerusis partially visualized. [facility], Radiant Results Inft User - 11/25/2020 [...] acute cardiopulmonary abnormality.Preliminary Report Dictated by Resident: Francis Armendariz, Stephen Mcwilliams MD., have reviewed this study and agree with theabove report.[facility] with [id number] 20:57:54 Test Item Value Reference Range Interpretation Comments WBC (test code = See_Comment [Automated 1982-2) message] The sy stem which generated this result transmitted reference range : 4.30 - 11.10 10*3/?L. The reference range was not used to interpret this result as normal/abnormal . RBC (test code = See_Comment [Automated 679-8) message] The sy stem which generated this [...] RDW-SD (test code = 42.4 fL 39.0-49.9 20915-8) RDW-CV (test code = 12.2 % 12.0-15.5 788-0) PLT (test code = See_Comment [Automated 737-3) message] The sy stem which generated this result transmitted reference range : 166 - 358 10*3/ ?L. The reference r kanika was not used to interpret this result as normal/abnormal . MPV (test code = 8.9 fL 9.5-12.9 L 90050-4) NRBC/100 WBC (test See_Comment [Automat ed code = 5068618326) message] The system which generated this result transmitted reference range : 0.0 - 10.0 /100 WBCs. The refer ence range was not u sed to interpret th is result as normal/abnormal . NRBC x10^3 (test code <0.01 See_Comment [Auto mated = 1423623315) message] The s ystem which generated this result transmitted reference range : 10*3/?L. The reference range was not used to interpret this result as normal/abnormal . GRAN MAT (NEUT) % 68.9 % (test code = 770-8) IMM GRAN % (test code 0.50 % = 0776845903) LYMPH % (test code = 22.0 % 736-9) MONO % (test code = 5.7 % 5905-5) EOS % (test code = 2.6 % 713-8) BASO % (test code = 0.3 % 706-2) GRAN MAT x10^3(ANC) 4.49 10*3/uL 1.88-7.09 (test code = 5735509793) IMM GRAN x10^3 (test 0.03 10*3/uL 0.00-0.06 code = 3945412630) LYMPH x10^3 (test code 1.43 10*3/uL 1.32-3.29 = 731-0) MONO x10^3 (test code 0.37 10*3/uL 0.33-0.92 = 742-7) EOS x10^3 (test code = 0.17 10*3/uL 0.03-0.39 711-2) BASO x10^3 (test code <0.03 0.01-0.07 = 704-7) Lab Interpretation Abnormal (test code = 64679-6) [facility] A[facility] PELVIS [id number] 20:28:00 FAX: Ebonie Calvillo MD [place]: EM St: REG Name: RENEE TAMAYO [facility] : 1980 Age/S: 40/F [address] [facility] Unit: [id number] Loc: E.ERS2 [place], [place]: [place] [id number] Acct: [id number] Dis Date: Status: REG ER PHONE #: [phone] Exam Date: 04/11/20202012 FAX #: [phone] Reason: PAIN EXAMS: CPT CODE: [id number] CT ABD PELVIS W/CONT 39528 LOCATION: T18 EXAM: CT ABDOMEN AND PELVIS [...] IMPRESSION: Fatty liver. Normal appendix. No bowel obstruction.No diverticulosis or evidence of colitis. at 2027 Reported and signed by: Kip Jeffery M.D. CC: Ebonie Parry MD Technologist: RAH GEE Trnscrd Dt/Tm: 04/11/2020 (2027) [email or web address] Orig Print D/T: S: 04/11/2020 (2031 PAGE 1 Signed Report COMPREHENSIVE METABOLIC [id number] 18:37:00 Test Item Value Reference Range Interpretation [...] 90 Units/L 50.0-136.0 N code = ALKP) [id number] 18:37:00 Test Item Value Reference Range Interpretation Comments LIPASE (test code = LIP) 140 Units/L 65.0-230.0 N [id number] 18:37:00 Test Item Value Reference Range Interpretation Comments ALCOHOL (test code 0.00 gm/dL 0.00-0.00 N ETHYL ALC OHOL VALUES - = ALC) INTERPRETATION: 0.050 GM/DL - NOT INT OXICATED 0.100 GM/DL - INTOXICATED 0.3 50-0.450 GM/DL - SEVEREL Y INTOXICATED 0.5 50 GM/DL- FATAL INTOXICAT ION DRUGS OF ABUSE SCREEN [id number] 18:33:00 Test Item Value Reference Range Interpretation [...] (test NEGATIVE NEGATIVE code = [place]) URINALYSIS [id number] 18:32:00 Test Item Value Reference Range Interpretation [...] code = TRACE NONE BACU) UR HCG [id number] 18:32:00 Test Item Value Reference Range Interpretation Comments UR HCG QUAL (test code = HCGQLU) NEGATIVE NEGATIVE URINALYSIS [id number] 18:31:00 Test Item Value Reference Range Interpretation [...] (test code = NONE BACU) UR HCG [id number] 18:31:00 Test Item Value Reference Range Interpretation Comments UR HCG QUAL (test code = HCGQLU) NEGATIVE COMPREHENSIVE METABOLIC [id number] 18:27:00 Test Item Value Reference Range Interpretation [...] TOTAL (test Units/L 50.0-136.0 code = ALKP) [id number] 18:27:00 Test Item Value Reference Range Interpretation Comments LIPASE (test code = LIP) Units/L 65.0-230.0 [id number] 18:27:00 Test Item Value Reference Range Interpretation Comments ALCOHOL (test code = ALC) gm/dL 0.00-0.00 CBC W/AUTO [id number] 18:16:00 Test Item Value Reference Range Interpretation [...]
[2022-05-30] MEDS ORDERED: HYDROCODONE/APAP 5/325 MG TAB ONE (11:52)
[2022-05-30] MEDS ORDERED: DIAZEPAM 5 MG TABLET ONE ×2 (11:52→13:16)
--- NOTE | 2022-05-30 13:31 | RAD REPORT ---
EXAM DESCRIPTION: RAD - Lumbar Spine 3 Views - 05/30/2022 1:23 pm CLINICAL HISTORY: PAIN COMPARISON: Lumbar Spine 3 Views dated 11/11/2019 FINDINGS: A three-view lumbar spine examination was performed. Lumbar bodies are normal in height. No subluxation abnormalities are seen. The lumbar spine has a luis enrique y subtle left convex curvature and slight elevation of the right iliac crest relative to the left. Th is can be seen with affects of muscle spasm. Positioning artifact and not create this appearance as w ell. No compression fracture. No pathologic bone changes identifiable. No disc space narrowing. No signif icant facet joint degenerative change. SI joints are normal in appearance. No pars defects identified . IMPRESSION: No acute bone or disc finding when compared with November 2019 study. Right iliac crest elevation and slight left convex curvature of the lumbar spine may simply be a posi tioning artifact. Muscle spasm can create this appearance as well.
--- NOTE | 2022-05-30 13:46 | ER ---
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 Coronavirus screen: At this time, the client does not indicate any symptoms associated with coronavirus-19. Ebola Screen: No symptoms or risks identified at this time. Initial Sepsis Screen: Does the patient meet any 2 criteria? No. Patient's initial sepsis screen is negative. Does the patient have a suspected source of infection? No. Patient's initial sepsis screen is negative. Risk Assessment: Do you want to hurt yourself or someone else? Patient reports no desire to harm self or others. Onset of symptoms was May 30, 2022. 11:36 Method Of Arrival: Wheelchair [facility] 11:36 Acuity: DIMPLE 3 bm7 Triage Assessment: 11:37 General: Appears in no apparent distress. uncomfortable, Behavior is crying. Pain: 7 Complains of pain in lumbar area, left low back and right low back. EENT: No deficits noted. No signs and/or symptoms were reported regarding the EENT system. Neuro: No deficits noted. Cardiovascular: No deficits noted. Respiratory: No deficits noted. GI: No deficits noted. No signs and/or symptoms were reported involving the gastrointestinal system. : No deficits noted. No signs and/or symptoms were reported regarding the genitourinary system. Derm: No deficits noted. No signs and/or symptoms reported regarding the dermatologic system. Musculoskeletal: Circulation, motion, and sensation intact. Capillary refill < 3 seconds, Tenderness present in back Reports pain in back. 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 - Social history:: Smoking status: Patient denies any tobacco usage or history of. Screenin:40 Abuse screen: Denies threats or abuse. Nutritional screening: No deficits noted. bm7 Tuberculosis screening: No symptoms or risk factors identified. Fall Risk None identified. Assessment: 11:40 Reassessment: No changes from previously documented assessment. bm7 12:39 Reassessment: Patient and/or family updated on plan of care and expected duration. Pain bm7 level reassessed. Patient is alert, oriented x 3, equal unlabored respirations, skin warm/dry/pink. Patient states symptoms have not improved. Vital Signs: 11:36 BP 132 / 78; Pulse 86; Resp 16; Temp 98.4(TE); Pulse Ox 100% on R/A; Weight 81.65 kg bm7 (R); Height 5 ft. 9 in. (175.26 cm); Pain 10/10; 11:36 Body Mass Index 26.58 (81.65 kg, 175.26 cm) bm7 ED Course: 11:21 Patient arrived in ED. rg4 11:29 Dwayne Vu DO is Attending Physician. ms3 11:36 Sarah Jefferson, RN is Primary Nurse. bm7 11:37 Triage completed. bm7 11:37 Arm band placed on right wrist. bm7 11:40 Patient has correct armband on for positive identification. Placed in gown. Bed in low bm7 position. Side rails up X 1. Adult w/ patient. Client placed on continuous cardiac and pulse oximetry monitoring. NIBP monitoring applied. Warm blanket given. 13:14 Patient moved to radiology via wheelchair. bm7 13:14 No provider procedures requiring assistance completed. Patient maintains SpO2 bm7 saturation greater than 95% on room air. 13:25 Lumbar Spine (3 Views) XRAY In Process Unspecified. EDMS 13:46 Orestes Francois DO is Referral Physician. ms3 13:53 Patient did not have IV access during this emergency room visit. bm7 Administered Medications: 12:02 Drug: HYDROcodone-acetaminophen 5 mg-325 mg 1 tabs Route: PO; bm7 13:54 Follow up: Response: Pain is unchanged, physician notified bm7 12:02 Drug: Valium (diazepam) 5 mg Route: PO; bm7 13:54 Follow up: Response: Pain is decreased bm7 13:35 Drug: Valium (diazepam) 5 mg Route: PO; bm7 13:54 Follow up: Response: Pain is decreased bm7 Medication: 11:40 VIS not applicable for this client. bm7 Outcome: 13:46 Discharge ordered by . ms3 13:53 Discharged to home ambulatory, with family. bm7 13:53 Condition: good 13:53 Discharge instructions given to patient, family, Instructed on discharge instructions, follow up and referral plans. medication usage, Demonstrated understanding of instructions, follow-up care, medications, Prescriptions given X 2. 13:54 Patient left the ED. bm7 Signatures: Dispatcher [employer] EDMary Trujillo rg4 Dwayne Vu, DO ms3 Sarah Jefferson, RN RN bm7
--- NOTE | 2022-05-30 13:46 | EDPHYS ---
Physician Documentation [facility] Name: Susana Tamayo Age: 42 yrs Sex: Female : 1980 Arrival Date: 05/30/2022 Time: 11:21 Bed 9 Private MD: ED Physician Dwayne Vu HPI: 05/30 13:46 This 42 yrs old Female presents to ER via Wheelchair with complaints of Back Pain. ms3 13:46 42 yo female with pmh of anxiety, depression, migraines, GERD, asthma presents for ms3 lower back pain that began earlier today. Patient rates her pain a 10/10 and describes the pain as stabbing. Patient states bending over makes the pain worse. Patient denies alleviating factors.. 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 - Social history:: Smoking status: Patient denies any tobacco usage or history of. ROS: 13:46 Constitutional: Negative for fever, and chills. Eyes: Negative for injury, pain, ms3 redness, and discharge, Neck: Negative for injury, pain, and swelling, Cardiovascular: Negative for chest pain, and palpitations. Respiratory: Negative for shortness of breath, cough, wheezing, and pleuritic chest pain, Abdomen/GI: Negative for abdominal pain, nausea, vomiting, diarrhea, and constipation. 13:46 MS/Extremity: Negative for injury and deformity, Skin: Negative for injury, rash, and discoloration, Neuro: Negative for headache, weakness, numbness, tingling. 13:46 Back: Positive for back pain. 13:46 All other systems are negative. Exam: 13:46 Constitutional: This is a well developed, well nourished patient who is awake, alert, ms3 and in no acute distress. Head/Face: Normocephalic, atraumatic. Neck: Trachea midline, no cervical lymphadenopathy. Supple, full range of motion without nuchal rigidity, or vertebral point tenderness. No Meningismus. Chest/axilla: Normal chest wall appearance and motion. Nontender with no deformity. Cardiovascular: Regular rate and rhythm with a normal S1 and S2. No gallops, murmurs, or rubs. Normal PMI, no JVD. No pulse deficits. Respiratory: Lungs have equal breath sounds bilaterally, clear to auscultation and percussion. No rales, rhonchi or wheezes noted. No increased work of breathing, no retractions or nasal flaring. Abdomen/GI: Soft, non-tender, with normal bowel sounds. No distension or tympany. No guarding or rebound. No evidence of tenderness throughout. MS/ Extremity: Pulses equal, no cyanosis. Neurovascular intact. Full, normal range of motion. Neuro: Awake and alert, GCS 15, oriented to person, place, time, and situation. Cranial nerves II-XII grossly intact. Motor strength 5/5 in all extremities. Sensory grossly intact. Cerebellar exam normal. Normal gait. Psych: Awake, alert, with orientation to person, place and time. Behavior, mood, and affect are within normal limits. 13:46 Back: pain, that is severe, of the left low back and right low back, muscle spasm, is appreciated in the left low back and right low back. Vital Signs: 11:36 BP 132 / 78; Pulse 86; Resp 16; Temp 98.4(TE); Pulse Ox 100% on R/A; Weight 81.65 kg bm7 (R); Height 5 ft. 9 in. (175.26 cm); Pain 10/10; 11:36 Body Mass Index 26.58 (81.65 kg, 175.26 cm) bm7 MDM: 11:51 Patient medically screened. ms3 13:46 Data reviewed: vital signs, nurses notes, radiologic studies, and as a result, I will ms3 discharge patient. Counseling: I had a detailed discussion with the patient and/or guardian regarding: the historical points, exam findings, and any diagnostic results supporting the discharge/admit diagnosis, radiology results, the need for outpatient follow up, to return to the emergency department if symptoms worsen or persist or if there are any questions or concerns that arise at home. Special discussion: I discussed with the patient/guardian in detail that at this point there is no indication for admission to the hospital. It is understood, however, that if the symptoms persist or worsen the patient needs to return immediately for re-evaluation. ED course: Return precautions given to include worsening symptoms, or any other concerns. Patient is a/o x4, nad, non-toxic, ambulatory in ED. Patient is without saddle anesthesia, bowel or bladder incontinence. Patient to follow up with her PMD in 2-3 days. All questions answered. . 05/30 12:58 Order name: Lumbar Spine (3 Views) XRAY; Complete Time: 13:42 ms3 Administered Medications: 12:02 Drug: HYDROcodone-acetaminophen 5 mg-325 mg 1 tabs Route: PO; bm7 13:54 Follow up: Response: Pain is unchanged, physician notified bm7 12:02 Drug: Valium (diazepam) 5 mg Route: PO; bm7 13:54 Follow up: Response: Pain is decreased bm7 13:35 Drug: Valium (diazepam) 5 mg Route: PO; bm7 13:54 Follow up: Response: Pain is decreased bm7 Disposition Summary: 05/30/22 13:46 Discharge Ordered Location: Home ms3 Condition: Stable ms3 Diagnosis - Muscle spasm of back ms3 Followup: ms3 - With: Orestes Francois DO - When: 2 - 3 days - Reason: Recheck today's complaints Discharge Instructions: - Discharge Summary Sheet ms3 - Muscle Cramps and Spasms ms3 Forms: - Medication Reconciliation Form ms3 - Thank You Letter ms3 - Antibiotic Education ms3 - Prescription Opioid Use ms3 Prescriptions: - Ibuprofen 600 mg Oral Tablet - take 1 tablet by ORAL route every 6 hours As needed take with food; 30 tablet; ms3 Refills: 0, Product Selection Permitted - Cyclobenzaprine 10 mg Oral Tablet - take 1 tablet by ORAL route every 8 hours As needed; 30 tablet; Refills: 0, ms3 Product Selection Permitted Signatures: Dispatcher [employer] EDDwayne Paula DO DO ms3 Sarah Jefferson, RN RN bm7
[2022-06-01 20:09] VITALS: BP 132/78; TEMP 98.4; O2SAT 100
== END 2022-05-30 13:54 | disposition home or self-care (01) ==
LOC: ER 11:19
DX: M62.830 Muscle spasm of back (principal)
CPT/HCPCS: 72100; 99284

== ENCOUNTER 2022-07-22 10:59 | Emergency (ER) | payer SELFPAY ==
--- OUTSIDE RECORDS SUMMARY | 2022-07-22 11:04 | XMS REPORT | Continuity of Care Document ---
:1980 Author Organization [facility] t Address [address] [place] [address] Care Team Providers Name Role Phone PCP, PATIENT DOES NOT HAVE A Primary Care Physician UnavailJONATHAN Jung Attending Clinician Unavailable Jonathan Somers DO Attending Clinician Sidra Suh DO Attending Clinician Danielle Montaño Attending Clinician Doctor Unassigned, [place] Attending Clinician Unavailable Therapy, [facility] Covid Infusion Attending Clinician Unavailable Darrell Francois MD Attending Clinician DARRELL FRANCOIS Attending Clinician Unavailable Mary Beth Cisneros Attending Clinician Geno Harris Attending Clinician Huang Goyal Attending Clinician HUANG GARG Attending Clinician Unavailable JONATHAN SOMERS Admitting Clinician Unavailable HUANG GARG Admitting Clinician Unavailable Physician, No Primary or Family Admitting Clinician Unavaila ble Payers Payer Name Policy Type Policy Number Effective Date Expiration Date S ource Problems Condition Condition Condition Status Onset Resolution Last Treating Co mments Source Name Details Category Date Date Treatment Clinician Date Vesicular Vesicular Disease Recurre Un jacky palmoplant palmoplant nce 7-20 it y of [place] eczema [place] [facility] Allergies, Adverse Reactions, Alerts Allergy Allergy Status Severity Reaction(s) Onset Inactive Treating Comm ents Source Name Type Date Date Clinician No Known DA Active [facility] No Known DA Active [facility] 8 [place] 00:[facility]: d 00 [facility] PROPOXYP DRUG Active N/V Univers HENE 2-08 ity of N-ACETAM 00:00: [place] INOPHEN 00 [facility] Propoxyp Propensi Active Nausea Univer s hene ty to and/or 2-08 ity of N-Acetam adverse Vomiting 00:00: [place] inophen reaction 00 [facility] [place] Social History Social Habit Start Date Stop Date Quantity Comments Source History of tobacco Cigarette Smoker University of use [facility] Exposure to 2022-06-17 2022-06-27 Not sure [facility] SARS-CoV-2 (event) 00:00:00 15:28:00 [facility] Alcohol intake 2022-06-27 2022-06-27 University of 00:00:00 00:00:00 [facility] Cigarettes smoked 2017-10-12 2017-10-12 Univers ity of current (pack per 00:00:00 00:00:00 [facility] ) - Reported Branch Cigarette 2017-10-12 2017-10-12 University of pack-years 00:00:00 00:00:00 [facility] Tobacco use and 2017-10-12 2017-10-12 Smokeless Universit y of exposure 00:00:00 00:00:00 tobacco non-user [facility] Sex Assigned At [birth year] Universit y of 00:00:00 00:00:00 [facility] Smoking Status Start Date Stop Date Source Smokes tobacco daily 2017-10-12 00:00:00 Univers ity of [facility] Medications Ordered Filled Start Stop Current Ordering Indication Dosage Frequency Signature Comments Components Source Medication Medication Date Date Medication? Clinician (SIG) Name Name HYDROcodone 2021-09- No 1{tbl} 1 tablet, Univers -acetaminop 0-25 10-24 Oral, ity of [place] (NORCO) 00:15: 23:24 [place] 10[place]325 mg [place] :00 dose, On Medica l tablet 1 Mon Branch tablet 06/27/22 at 1915, Routine casirivimab No [id number] 1200mg Univers -imdevimab 04-22 ity of (REGEN-COV 19:30: 19:24 [place] (EUA)) 00 :00 Medical 1,200 mg in Branch NaCl 0.9% (NS) 60 mL IV infusion casirivimab No [id number] 1200mg 1,200 mg, Univers -imdevimab 04-22 IV ity of (REGEN-COV 19:30: 19:24 Infusion, [place] (EUA[place] 00 :00 ONCE, Medical 1,200 mg in Administer Br anch NaCl 0.9% over 20 (NS) 60 mL Minutes, IV infusion Karina 04/22/21 at 1430, For 1 dose
Ad post doctoral fellow as an IV infusion via pump or gravity over at least 60 minutes through an intravenou s line containing a sterile, in-line or add-on 0.2-micron polyethers ulfone (PES) filter.&nb sp;Stable 36 hours refrigerat ed; 4 hours at room temperatur e. &nbs p;
ondansetron No 4mg 4 mg, Univ ers (ZOFRAN-ODT 04-16 Oral, ity of ) 17:30: 16:34 ONCE, 1 [place] disintegrat 00 :00 dose, Fri Med ical ing tablet 04/16/21 at [facility] 4 mg 1230, Routine dexamethaso No 10mg 10 mg, Uni vers ne [...] approving Restricted medication : EMERGENCY ROOM, ondansetron 0 Yes [id number] 4mg Take 1 Univers (ZOFRAN 8-13 tablet by ity of ODT) 4 mg 00:00: mouth [place] disintegrat 00 every 8 Medic al ing tablet (eight) Branch hours as needed for Nausea and Vomiting (N/V). bromphenira 0 Yes [id number] 5mL Take 5 mL Univers mine-pseudo 8-13 by mouth 4 it y of ephedrine-D 00:00: (four[place] (BROMFED 00 times Medical DM) 2-30-10 daily as Bran ch mg/5 mL needed for syrup Congestion /Allergies . ondansetron Yes [id number] 4mg Take 1 Univers (ZOFRAN 8-13 tablet by ity of ODT) 4 mg 00:00: mouth [place] disintegrat 00 every 8 Medic al ing tablet (eight) Branch hours as needed for Nausea and Vomiting (N/V). bromphenira 2020-0 Yes [id number] 5mL Take 5 mL Univers mine-pseudo 8-13 by mouth 4 it y of ephedrine-D 00:00: (four[place] (BROMFED 00 times Medical DM) 2-30-10 daily as Bran ch mg/5 mL needed for syrup Congestion /Allergies . ondansetron Yes [id number] 4mg Take 1 Univers (ZOFRAN 8-13 tablet by ity of ODT) 4 mg 00:00: mouth [place] disintegrat 00 every 8 Medic al ing tablet (eight) Branch hours as needed for Nausea and Vomiting (N/V). bromphenira 0 Yes [id number] 5mL Take 5 mL Univers mine-pseudo 8-13 by mouth 4 it y of ephedrine-D 00:00: (four[place] (BROMFED 00 times Medical DM) 2-30-10 daily as Bran ch mg/5 mL needed for syrup Congestion /Allergies . ondansetron 2021-0 Yes [id number] 4mg Take 1 Univers (ZOFRAN 8-13 tablet by ity of ODT) 4 mg 00:00: mouth [place] disintegrat 00 every 8 Medic al ing tablet (eight) Branch hours as needed for Nausea and Vomiting (N/V). bromphenira 2021-0 Yes [id number] 5mL Take 5 mL Univers mine-pseudo 8-13 by mouth 4 it y of ephedrine-D 00:00: (four[place] (BROMFED 00 times Medical DM) 2-30-10 daily as Bran ch mg/5 mL needed for syrup Congestion /Allergies . ondansetron 1-0 Yes [id number] 4mg Take 1 Univers (ZOFRAN 8-13 tablet by ity of ODT) 4 mg 00:00: mouth [place] disintegrat 00 every 8 Medic al ing tablet (eight) Branch hours as needed for Nausea and Vomiting (N/V). bromphenira 2021-0 Yes [id number] 5mL Take 5 mL Univers mine-pseudo 8-13 by mouth 4 it y of ephedrine-D 00:00: (four) [place] (BROMFED 00 times Medical DM) 2-30-10 daily as Bran ch mg/5 mL needed for syrup Congestion /Allergies . ondansetron 1-0 Yes [id number] 4mg Take 1 Univers (ZOFRAN 8-13 tablet by ity of ODT) 4 mg 00:00: mouth [place] disintegrat 00 every 8 Medic al ing tablet (eight) Branch hours as needed for Nausea and Vomiting (N/V). bromphenira 2021-0 Yes [id number] 5mL Take 5 mL Univers mine-pseudo 8-13 by mouth 4 it y of ephedrine-D 00:00: (four[place] (BROMFED 00 times Medical DM) 2-30-10 daily as Bran ch mg/5 mL needed for syrup Congestion /Allergies . ondansetron 2021-0 Yes [id number] 4mg Take 1 Univers (ZOFRAN 8-13 tablet by ity of ODT) 4 mg 00:00: mouth [place] disintegrat 00 every 8 Medic al ing tablet (eight) Branch hours as needed for Nausea and Vomiting (N/V). bromphenira Yes [id number] 5mL Take 5 mL Univers mine-pseudo 8-13 by mouth 4 it y of ephedrine-D 00:00: (four[place] (BROMFED 00 times Medical DM) 2-30-10 daily as Bran ch mg/5 mL needed for syrup Congestion /Allergies . predniSONE 2020- No [id number] 40mg Take 2 Univers 20 mg 8-13 [...] Mon Branch 12/28/20 at 2014, SHEBA
[facility] healthy member approving Restricted medication : GENO VILLALOBOS ibuprofen Yes [id number] 600mg Take 1 Univers 600 mg 4-26 tablet by ity of tablet 00:00: mouth [place] 00 every 6 Medical (six) Branch hours as needed for Pain (scale 4-6). ibuprofen Yes [id number] 600mg Take 1 Univers 600 mg 4-26 tablet by ity of tablet 00:00: mouth [place] 00 every 6 Medical (six) Branch hours as needed for Pain (scale 4-6). ibuprofen 0 Yes [id number] 600mg Take 1 Univers 600 mg 4-26 tablet by ity of tablet 00:00: mouth [place] 00 every 6 Medical (six) Branch hours as needed for Pain (scale 4-6). ibuprofen 0 Yes [id number] 600mg Take 1 Univers 600 mg 4-26 tablet by ity of tablet 00:00: mouth [place] 00 every 6 Medical (six) Branch hours as needed for Pain (scale 4-6). ibuprofen Yes [id number] 600mg Take 1 Univers 600 mg 4-26 tablet by ity of tablet 00:00: mouth [place] 00 every 6 Medical (six) Branch hours as needed for Pain (scale 4-6). ibuprofen 0 Yes [id number] 600mg Take 1 Univers 600 mg 4-26 tablet by ity of tablet 00:00: mouth [place] 00 every 6 Medical (six) Branch hours as needed for Pain (scale 4-6). ibuprofen Yes [id number] 600mg Take 1 Univers 600 mg 4-26 tablet by ity of tablet 00:00: mouth [place] 00 every 6 Medical (six) Branch hours as needed for Pain (scale 4-6). ibuprofen Yes [id number] 600mg Take 1 Univers 600 mg 4-26 tablet by ity of tablet 00:00: mouth [place] 00 every 6 Medical (six) Branch hours as needed for Pain (scale 4-6). cephALEXin 2020- No [id number] 500mg Take 1 Univers 500 mg 4-26 05-04 capsule by ity of capsule 00:00: 04:59 mouth 4 [place] 00 :00 (four) Medical times Branch daily for 7 days. KCL 2020- No 40meq 40 mEq, Univers (KLOR-CON 3-24 03-24 Oral, ity of M20) tablet 23:00: 22:04 [place]CE[place] 1 [place] 40 mEq 00 :00 dose, Mon Medical 11/25/20 at Branch 1800, SHEBA aspirin 2020- No 325mg 325 mg, Unive rs tablet 325 24 -24 Oral, ity of mg 21:30: 20:34 ONCE, 1 [place] 00 :00 dose, [facility] Medical 11/25/20 at Branch 1630, STAT albuterol Yes 2{puff} Inhale 2 U nivers (PROAIR 2-08 Puffs ity of HFA) 90 14:52: every 6 [place] mcg/actuati 08 (six) Medical on inhaler hours as Branc h needed. ibuprofen Yes 800mg Take 800 Uni vers (MOTRIN) [...] (PROAIR 2-08 Puffs ity of HFA) 90 08:52: every 6 [place] mcg/actuati 08 (six) Medical on inhaler hours as Branc h needed. ibuprofen 2018-0 Yes 800mg Take 800 Uni vers (MOTRIN) 2-08 mg by ity of 800 mg 08:52: mouth [place] tablet 08 every 6 Medical [...] 00 (two) Medical times Branch daily. metroNIDAZO 2017- Yes 500mg Take 1 Uni vers LE 500 mg 2-08 tablet by ity o f tablet 00:00: mouth 2 00 (two) Medical times Branch daily. diphenoxyla 2017- Yes 1{tbl} Take 1 Un jacky te-atropine 2-08 tablet by ity of (LOMOTIL) 00:00: mouth [place] 2.5-0.025 00 every 6 Medical mg per (six) Branch tablet hours as needed (t). triamcinolo Yes [id number] Apply to Univers ne 7-18 area(s) 2 ity of acetonide 00:00: (two) [place] (KENALOG) 00 times Medical 0.1 % daily. Branch ointment triamcinolo Yes [id number] Apply to Univers ne 7-18 area(s) 2 ity of acetonide 00:00: (two) [place] (KENALOG) 00 times Medical 0.1 % daily. Branch ointment triamcinolo Yes [id number] Apply to Univers ne 7-18 area(s) 2 ity of acetonide 00:00: (two) [place] (KENALOG) 00 times Medical 0.1 % daily. Branch ointment triamcinolo Yes [id number] Apply to Univers ne 7-18 area(s) 2 ity of acetonide 00:00: (two) [place] (KENALOG) 00 times Medical 0.1 % daily. Branch ointment triamcinolo Yes [id number] Apply to Univers ne 7-18 area(s) 2 ity of acetonide 00:00: (two) [place] (KENALOG) 00 times Medical 0.1 % daily. Branch ointment triamcinolo Yes [id number] Apply to Univers ne 7-18 area(s) 2 ity of acetonide 00:00: (two) [place] (KENALOG) 00 times Medical 0.1 % daily. Branch ointment triamcinolo Yes [id number] Apply to Univers ne 7-18 area(s) 2 ity of acetonide 00:00: (two) [place] (KENALOG) 00 times Medical 0.1 % daily. Branch ointment triamcinolo 2012-0 Yes [id number] Apply to [facility] 7-18 area(s) 2 ity of acetonide 00:00: (two) [place] (KENALOG) 00 times Medical 0.1 % daily. Branch ointment triamcinolo 2012-0 Yes [id number] Apply to [facility] 7-18 area(s) 2 ity of acetonide 00:00: (two) [place] (KENALOG) 00 times Medical 0.1 % daily. Branch ointment Vital Signs Vital Name Observation Time Observation Value Comments Source Systolic blood 2022-06-27 23:00:00 114 mm[Hg] Univer sity of [facility] Diastolic blood 2022-06-27 23:00:00 77 mm[Hg] Unive rsity of [facility] Heart rate 2022-06-27 23:00:00 96 /min [facility] Respiratory rate 2022-06-27 23:00:00 16 /min General acute hospital Oxygen saturation in 2022-06-27 23:00:00 96 /min [facility] Arterial blood by [facility] Pulse oximetry Branch Body temperature 2022-06-27 20:29:00 36.61 Jeanette [facility] acute hospital Body height 2022-06-27 20:29:00 175.3 cm [facility] Body weight 2022-06-27 20:29:00 81.647 kg [facility] BMI 2022-06-27 20:29:00 26.58 kg/m2 [facility] Systolic blood 2021-05-03 17:27:00 127 mm[Hg] Univer sity of [facility] Diastolic blood 2021-05-03 17:27:00 74 mm[Hg] Unive rsity of [facility] Heart rate 2021-05-03 17:27:00 94 /min [facility] Body temperature 2021-05-03 17:27:00 37.11 Jeanette [facility] 2021-05-03 17:27:00 16 /min General acute hospital Body height 2021-05-03 17:27:00 175.3 cm [facility] [place] [facility] Body weight 2021-05-03 17:27:00 68.04 kg [facility] [place] [facility] BMI 2021-05-03 17:27:00 22.15 kg/m2 [facility] [place] [facility] Oxygen saturation in 2021-05-03 17:27:00 97 /min University of Arterial blood by [facility] anuj Pulse oximetry Branch Systolic blood 2021-04-22 20:25:00 99 mm[Hg] Univer sity of [facility] [place] [facility] Diastolic blood 2021-04-22 20:25:00 64 mm[Hg] Unive rsity of [facility] [place] [facility] Heart rate 2021-04-22 20:25:00 75 /min Universi ty [facility] [place] [facility] Body temperature 2021-04-22 20:25:00 36.5 Jeanette Univ ers[facility] [place] [facility] Respiratory rate 2021-04-22 20:25:00 17 /min Univ ers[facility] [place] [facility] Oxygen saturation in 2021-04-22 20:25:00 99 /min University of Arterial blood by [facility] Pulse oximetry Branch Body height 2021-04-22 18:25:00 175.3 cm [facility]i [facility] [place] [facility] Body weight 2021-04-22 18:25:00 84.823 kg [facility] [place] [facility] BMI 2021-04-22 18:25:00 27.62 kg/m2 [facility] [place] [facility] Systolic blood 2021-04-16 16:16:00 137 mm[Hg] Univer sity of [facility] [place] [facility] Diastolic blood 2021-04-16 16:16:00 68 mm[Hg] Unive rsity of [facility] [place] [facility] Heart rate 2021-04-16 16:16:00 78 /min [facility]i [facility] [place] [facility] Body temperature 2021-04-16 16:16:00 36.83 Jeanette Univ [facility] [place] [facility] Respiratory rate 2021-04-16 16:16:00 18 /min Univ [facility] [place] [facility] Body height 2021-04-16 16:16:00 175.3 cm [facility] [place] [facility] Body weight 2021-04-16 16:16:00 80.74 kg [facility] [place] [facility] BMI 2021-04-16 16:16:00 26.29 kg/m2 [facility] [place] [facility] Oxygen saturation in 2021-04-16 16:16:00 97 /min University of Arterial blood by [facility] Pulse oximetry Branch Systolic blood 2020-12-29 00:00:00 123 mm[Hg] Univer sity of [facility] [place] [facility] Diastolic blood 2020-12-29 00:00:00 82 mm[Hg] Unive rsity of [facility] [place] [facility] Heart rate 2020-12-29 00:00:00 77 /min [facility]i [facility] [place] [facility] Respiratory rate 2020-12-29 00:00:00 16 /min Univ ers[facility] [place] [facility] Oxygen saturation in 2020-12-29 00:00:00 99 /min University of Arterial blood by [facility] Pulse oximetry Branch Body temperature 2020-12-28 20:34:00 37 Jeanette Univ [facility] [place] [facility] Body weight 2020-12-28 20:34:00 68.04 kg [facility] [place] [facility] BMI 2020-12-28 20:34:00 22.81 kg/m2 [facility] [place] [facility] Systolic blood 2020-12-29 00:00:00 123 mm[Hg] Univer sity of [facility] [place] [facility] Diastolic blood 2020-12-29 00:00:00 82 mm[Hg] Unive rsity of [facility] [place] [facility] Heart rate 2020-12-29 00:00:00 77 /min [facility]i [facility] [place] [facility] Respiratory rate 2020-12-29 00:00:00 16 /min Univ ers[facility] [place] [facility] Oxygen saturation in 2020-12-29 00:00:00 99 /min University of Arterial blood by [facility] Pulse oximetry Branch Body temperature 2020-12-28 20:34:00 37 Jeanette Univ [facility] [place] [facility] Body weight 2020-12-28 20:34:00 68.04 kg [facility] [place] [facility] BMI 2020-12-28 20:34:00 22.81 kg/m2 [facility] [place] [facility] Systolic blood 2020-11-25 22:00:00 125 mm[Hg] Univer sity of [facility] [place] [facility] Diastolic blood 2020-11-25 22:00:00 87 mm[Hg] Unive rsity of pressure [place] [facility] Heart rate 2020-11-25 22:00:00 89 /min [facility]i ty [facility] [place] [facility] [place] Respiratory rate 2020-11-25 22:00:00 19 /min [facility] ersity of [facility] Oxygen saturation in 2020-11-25 22:00:00 96 /min University of Arterial blood by [facility] Pulse oximetry Branch Body temperature 2020-11-25 20:16:00 36.67 Jeanette [facility] Body weight 2020-11-25 20:16:00 68.04 kg [facility]i ty [facility] [place] [facility] [place] BMI 2020-11-25 20:16:00 22.81 kg/m2 Universi ty [facility] Systolic blood 2020-11-25 22:00:00 125 mm[Hg] [facility] Diastolic blood 2020-11-25 22:00:00 87 mm[facility]Hg] [facility] Heart rate 2020-11-25 22:00:00 89 /min [facility]i [facility] [place] [facility] [place] Respiratory rate 2020-11-25 22:00:00 19 /min General acute hospital Oxygen saturation in 2020-11-25 22:00:00 96 /min University of Arterial blood by [facility] Pulse oximetry Branch Body temperature 2020-11-25 20:16:00 36.67 Jeanette [facility] ersity [facility] Body weight 2020-11-25 20:16:00 68.04 kg Universi ty [facility] BMI 2020-11-25 20:16:00 22.81 kg/m2 [facility] Procedures Procedure Date / Time Performed Performing Clinician Sour e D-DIMER 2022-06-27 22:38:00 Singer [facility] LIPASE 2022-06-27 21:15:00 Singer [facility] MAGNESIUM 2022-06-27 21:15:00 Singer [facility] TROPONIN I 2022-06-27 21:15:00 Singer [facility] COMP. METABOLIC PANEL 2022-06-27 21:15:00 Jonathan Somers [facility] ([id number] CBC WITH DIFF 2022-06-27 21:15:00 Singer [facility] N-TERMINAL PRO-BNP 2022-06-27 21:15:00 Singer [facility] Medical Branch XR CHEST 1 VW 2022-06-27 21:00:39 Singer [facility] CONSENT/REFUSAL FOR 2022-06-27 19:54:43 Doctor Unassigned, No [facility] [place] DIAGNOSIS AND Name Medical Branch TREATMENT CONSENT/REFUSAL FOR 2021-05-03 16:52:48 Doctor Unassigned, No [facility] [place] DIAGNOSIS AND Name Medical Branch TREATMENT ASSIGNMENT OF BENEFITS 2021-04-16 17:52:37 Doctor Unassigned, No [facility] RAPID STREP SCREEN FOR 2021-04-16 16:30:00 Mary Beth Santacruz [facility] GROUP A Medical Branch CONSENT/REFUSAL FOR 2021-04-16 15:59:46 Doctor Unassigned, No [facility] [place] DIAGNOSIS AND Name Medical Branch TREATMENT URINALYSIS 2020-12-29 00:19:00 Geno Villalobos [facility] Medical [place] CONSENT/REFUSAL FOR 2020-12-28 20:23:27 Doctor Unassigned, No [facility] [place] DIAGNOSIS AND Name Medical Branch TREATMENT TROPONIN I 2020-11-25 22:10:00 Britany [facility] XR CHEST 1 VW 2020-11-25 20:46:[facility] 2020-11-25 20:34[facility]00 [facility] TR[facility] 2020-11-25 20:34[facility]00 [facility]EL 2020-11-25 20:34:00 [id number] (ALB,T.PRO,BILI T,BU/BC,ALT,AST,ALK PHOS) BASIC METABOLIC PANEL 2020-11-25 20:34:00 Britany, [facility] (NA, K, CL, CO2, Medical Branch GLUCOSE, BUN, CREATININE, CA) CBC WITH DIFF 2020-11-25 20:34:00 [facility] N-TERMINAL PRO-BNP 2020-11-25 20:34:00 Huang Garg [facility] HB ECG ROUTINE & 2020-11-25 20:22:52 Huang Garg [facility] RHYTHM STRIP [facility] Encounters Start End Encounter Admission Attending Care Care Encounter Source Date/Time Date/Time Type Type Clinicians Facility Department ID 2021-07-05 Emergency [facility] [id number] Univers 19:02:36 ity [facility] 2021-07-05 Emergency [facility] [id number] Univers 15:21:12 ity [facility] 2021-07-04 Emergency [facility] [id number] Univers 15:22:03 ity [facility] 2022-06-27 2022-06-27 Emergency [facility] [id number] Univers 15:34:00 18:56:00 JONATHAN morocho [facility] 2022-06-27 2022-06-27 Emergency [facility] [id number] Univers 15:34:00 18:56:00 Jonathan JAMESON [id number] i ty of [place] 4.2.7.2.686 [facility] [id number] [facility] 084 Branch 2021-05-03 2021-05-03 Emergency Sidra Suh [facility] [id number] Univers 12:30:00 21:32:00 Danielle [place] [id number] ity of [place] [id number] [facility] [id number] [facility] 084 Branch 2021-05-03 2021-05-03 Orders Doctor FERMÍN [id number] Univers 00:00:00 00:00:00 Only Unassigned, ROLAND [id number] ity of [place] [facility] 4.2.7.2.686 [facility] [id number] [facility] 009 Branch 2021-04-22 2021-04-22 Nurse Therapy, Adc Covid Infusion [facility] [id number] Univers 12:53:19 13:53:19 Visit Darrell Francois [id number] ity of [place] 4.2.7.2.686 [facility] [id number] [place] [id number] Branch 2021-04-22 2021-04-22 Outpatient R FRANCOIS [facility] [id number] Univers 13:00:00 13:00:00 DARRELL ity of [facility] 2021-04-16 2021-04-16 Emergency [facility] [id number] [facility] 11:17:00 13:59:00 Mary Beth Salina [id number] i ty of [place] 4.2.7.2.686 [facility] [id number] [address] 2020-12-28 2020-12-28 [facility] [id number] 17:44:00 21:05:00 Mallikaashleyo Thomas Salina [id number] [place] 4.2.7.2.686 [place] [id number] [facility] 2020-12-28 2020-12-28 [facility] [id number] [facility] 17:44:00 21:05:00 Mallikaashleyo Thomas [place] [id number] ity of [place] 4.2.7.2.686 [facility] [id number] [address] 2020-11-25 2020-11-25 Emergency [facility] [id number] 15:17:00 17:55:00 Cynise [place] [id number] [place] 4.2.7.2.686 [place] [id number] [facility] 2020-11-25 2020-11-25 Emergency [facility] [id number] Univers 15:17:00 17:55:00 Cynise [place] [id number] i ty of [place] 4.2.7.2.686 [facility] [id number] [address] 2020-11-25 2020-11-25 Emergency X BRITANY [facility] ERT [id number] Univers 15:17:00 17:55:00 HUANG morocho [facility] 2020-04-11 2020-04-14 Inpatient [facility] VIVIEN [id number] [facility] 17:34:00 06:46:[address] [facility] Results Test Description Test Time Test Comments Results Result Comments Source D-DIMER 2022-06-27 23:19:10 Test Item Value Reference Range Interpretation Comme nts D-DIMER (test code = See_Comment [Autom ated message] The 0532433712) system which ge nerated this result tra nsmitted reference range : <0.41 ?g/mL (FEU). Th e reference range was not used to interpr et this result as normal/abnormal . LYUDMILA (test code = LYUDMILA) This test may be used in conjunction with a clinical pretest probability (PTP) assessment model to exclude venous thromboembolism (VTE) in patients suspected of deep venous thrombosis (DVT) and pulmonary embolism (PE) A D-Dimer value less than 0.50 ?g/ml (FEU) has a negative predicative value of 96 to 100% (95% CI)and 97 to 100% (95% CI) as an aid in the diagnosis of deep vein thrombosis (DVT) and pulmonary embolism when there is low or moderate pretest probability of PE or DVT. D-Dimer values are expressed in initial fibrinogen equivalent units (FEU)" The assay results should be used with other information, including the clinical context, in forming a diagnosis. Lab Interpretation Normal (test code = 08826-9) [facility] [id number] 21:54:56 Test Item Value Reference Interpretation Comments Range TROPONIN I (test 0.003 ng/mL See_Comment [Automated code = 9582554406) message] The system which generated this result transmitted reference range : <=0.034. The reference range was not used to interpret this result as normal/abnormal . LYUDMILA (test code = Reference (Normal) LYUDMILA) Range (defined by the 99th percentile reference limit): <= 0.034 ng/mL Note: Cardiac troponin begins to rise 3-4 hours after the onset of ischemia. Repeat in 4-6 hours if the sample was drawn within 3-4 hours of the onset of the symptom and found normal. Diagnosis of myocardial injury is made with acute changes in cTn concentrations with at least one serial sample above the 99th percentile upper reference limit (URL), taken together with the patient's clinical presentation. Biotin has been reported to cause a negative bias, interpret results relative to patient's use of biotin. Lab Interpretation Normal (test code = 90331-6) [facility] [id number] 21:51:38 Test Item Value Reference Range Interpretation Comments NT-proBNP (test code 29 pg/mL See_Comment [Autom ated = 5945580528) message] The system which generated this result transmitted reference range : <=125. The reference range was not used to interpret this result as normal/abnormal . LYUDMILA (test code = LYUDMILA) Biotin has been reported to cause a negative bias, interpret results relative to patient's use of biotin. Lab Interpretation Normal (test code = 04396-6) [facility]OL[facility] PANEL (17914)2022-06-27 21:43:18 Test Item Value Reference Range Interpretation Comments NA (test code = 135 mmol/L 135-145 6753085500) K (test code = 4.5 mmol/L 3.5-5 0073349529) CL (test code = 100 mmol/L 98-108 8292718990) CO2 TOTAL (test code 25 mmol/L 23-31 = 3242905350) AGAP (test code = 2-16 3792237446) BUN (test code = 10 mg/dL 7-23 5963101259) GLUCOSE (test code = 91 mg/dL 70-110 2547564301) CREATININE (test code 0.75 mg/dL 0.5-1.04 = 5791470191) TOTAL BILI (test code 0.7 mg/dL 0.1-1.1 = 3052314165) CALCIUM (test code = 9.9 mg/dL 8.6-10.6 6601834628) T PROTEIN (test code 7.9 g/dL 6.3-8.2 = 8396527558) ALBUMIN (test code = 4.8 g/dL 3.5-5 6197632679) ALK PHOS (test code = 78 U/L 34-122 9430648130) ALTv (test code = 15 U/L 5-35 1742-6) AST(SGOT) (test code 24 U/L 13-40 = 5036057111) eGFR (test code = mL/min/1.73m2 0297808066) LYUDMILA (test code = LYUDMILA) Association of Glomerular Filtration Rate (GFR) and Staging of Kidney Disease* + + +- +| GFR (mL/min/1.73 m2) ?| With Kidney Damage ?| ?Without Kidney Damage+ ------+ ----+ ------+| ?>90 ?| ?Stage one ?| ? Normal ?+ -+ + -+| ?60-89 ?| ?Stage two ?| ? Decreased GFR ? + + +- +| ?30-59 ?| ?Stage three ?| ? Stage three ? + + +- +| ?15-29 ?| ?Stage four ? | ? Stage four ?+ -+ + -+| ?<15 (or dialysis) ? ?| ?Stage five ? | ? Stage five ?+ -+ + -+ *Each stage assumes the associated GFR level [...] or urine or abnormalities in imaging tests). [facility]2022-[facility]-24 21:43:18 Test Item Value Reference Range Interpretation Comments MAGNESIUM (test code = 1811714186) 2.1 mg/dL 1.7-2.4 Lab Interpretation (test code = Normal 52204-0) [facility]2022-[facility]-24 21:42:58 Test Item Value Reference Range Interpretation Comments LIPASE (test code = 3467108754) 104 U/L 0-220 Lab Interpretation (test code = Normal 36151-5) [facility] CenterCB WITH [id number] 21:30:16 Test Item Value Reference Range Interpretation Comments WBC (test code = See_Comment [Automated 6690-2) message] The sy stem which generated this [...] as normal/abnormal . HGB (test code = 14.2 g/dL 11.6-15 718-7) HCT (test code = 39.3 % 35.7-45.2 4544-3) MCV (test code = 91.2 fL 80.6-95.5 787-2) MCH (test code = 32.9 pg 25.9-32.8 H 785-6) MCHC (test code = 36.1 g/dL 31.6-35.1 H 786-4) RDW-SD (test code = 38.7 fL 39-49.9 L 79024-5) RDW-CV (test code = 11.5 % 12-15.5 L 788-0) PLT (test code = See_Comment [Automated 777-3) message] The sy stem which generated this result transmitted reference range : 166 - 358 10*3/ ?L. The reference r kanika was not used to interpret this result as normal/abnormal . MPV (test code = 8.9 fL 9.5-12.9 L 71939-8) NRBC/100 WBC (test See_Comment [Automat ed code = 8948294150) message] The system which generated this result transmitted reference range : 0.0 - 10.0 /100 WBCs. The refer ence range was not u sed to interpret th is result as normal/abnormal . NRBC x10^3 (test code See_Comment [Auto mated = 7687971495) message] The s ystem which generated this result transmitted reference range : 10*3/?L. The reference range was not used to interpret this result as normal/abnormal . GRAN MAT (NEUT) % 68.5 % (test code = 770-8) IMM GRAN % (test code 0.60 % = 2892880745) LYMPH % (test code = 21.3 % 736-9) MONO % (test code = 6.8 % 5905-5) EOS % (test code = 2.4 % 713-8) BASO % (test code = 0.4 % 706-2) GRAN MAT x10^3(ANC) 6.86 10*3/uL 1.88-7.09 (test code = 0647137092) IMM GRAN x10^3 (test 0.06 10*3/uL 0-0.06 code = 0378789481) LYMPH x10^3 (test code 2.13 10*3/uL 1.32-3.29 = 731-0) MONO x10^3 (test code 0.68 10*3/uL 0.33-0.92 = 742-7) EOS x10^3 (test code = 0.24 10*3/uL 0.03-0.39 711-2) BASO x10^3 (test code 0.04 10*3/uL 0.01-0.07 = 704-7) Lab Interpretation Abnormal (test code = 62227-4) [facility] STREP SCREEN FOR GROUP [id number] 17:16:32 Test Item Value Reference Range Interpretation Comments Streptococcus pyogenes Negative Negative (group A) antigen (test code = 51524-5) LYUDMILA (test code = LYUDMILA) Performed on [employer]. Lab Interpretation (test Normal code = 18138-4) [facility]IN[facility]IS2021-04-27 00:53:40 Test Item Value Reference Range Interpretation Comments APPEARANCE (test code = Clear Clear 1923513107) COLOR (test code = Straw Yellow A 6678448320) PH (test code = 4.8-8.0 5620646264) SP GRAVITY (test code = 1.003-1.030 8643474540) GLU U QUAL (test code = Normal Normal 4744134498) BLOOD (test code = Negative Negative 8023921822) KETONES (test code = Negative Negative 9440958223) PROTEIN (test code = Negative Negative 2887-8) UROBILIN (test code = Normal Normal 7621530288) BILIRUBIN (test code = Negative Negative 3976664098) NITRITE (test code = Negative Negative 9827429889) LEUK ADALI (test code = Negative Negative 1395024080) RBC/HPF (test code = <1 See_Comment [Autom ated message] 4296816606) The system [employer] generated this result transmitted ref erence range: 0 - 3 HP F. The reference range was not used to int erpret this result as normal/abnormal . WBC/HPF (test code = <1 See_Comment [Autom ated message] 9778937907) The system [employer] generated this result transmitted ref erence range: 0 - 5 HP F. The reference range was not used to int erpret this result as normal/abnormal . BACTERIA (test code = Negative Negative 8876029094) Lab Interpretation (test Abnormal code = 28661-3) [facility] [id number] 22:39:08 Test Item Value Reference Range Interpretation Comments TROPONIN I (test 0.000 ng/mL See_Comment [Automated code = 9289880578) message] The system which generated this result [...] ? Lab Interpretation Normal (test code = 20474-1) [facility] [id number] 21:51:20 Test Item Value Reference Range Interpretation Comments TROPONIN I (test 0.001 ng/mL See_Comment [Automated code = 0514481766) message] The system which generated this result [...] ? Lab Interpretation Normal (test code = 09217-1) [facility] [id number] 21:39:24 Test Item Value Reference Range Interpretation Comments NT-proBNP (test code 18 pg/mL See_Comment [Autom ated = 0905886875) message] The system which generated this result transmitted reference range : <=125. The reference range was not used to interpret this result as normal/abnormal . LYUDMILA (test code = LYUDMILA) Biotin has been reported to cause a negative bias, interpret results relative to patient's use of biotin. Lab Interpretation Normal (test code = 43246-6) [facility] Center[facility] (ALB, T.PRO, BILI T, BU/BC, ALT, AST, ALK PHOS)2020-11-25 21:30:41 Test Item Value Reference Range Interpretation Comments TOTAL BILI (test code = 1733118128) 0.5 mg/dL 0.1-1.1 BILI UNCON (test code = 5026162042) 0.4 mg/dL 0.1-1.1 BILI CONJ (test code = 9571851715) 0.0 mg/dL 0.0-0.3 T PROTEIN (test code = 5092073700) 7.2 g/dL 6.3-8.2 ALBUMIN (test code = 5990188352) 4.2 g/dL 3.5-5.0 ALK PHOS (test code = 9753772432) 83 U/L 34-122 ALTv (test code = 1742-6) 15 U/L 5-35 AST(SGOT) (test code = 2665081098) 23 U/L 13-40 Lab Interpretation (test code = Normal 73159-3) [facility] Metabolic Panel (NA, K, CL, CO2, GLUCOSE, BUN, CREATININE, CA)2020-11-25 21:30:20 Test Item Value Reference Range Interpretation Comments NA (test code = 137 mmol/L 135-145 1172197226) K (test code = 3.2 mmol/L 3.5-5.0 L 9240747854) CL (test code = 106 mmol/L 98-108 0433358953) CO2 TOTAL (test code = 23 mmol/L 23-31 6538541289) AGAP (test code = 2-16 7748874133) BUN (test code = 4 mg/dL 7-23 L 2210686334) GLUCOSE (test code = 167 mg/dL 70-110 H 7015769525) CREATININE (test code = 0.60 mg/dL 0.50-1.04 8940283007) CALCIUM (test code = 8.9 mg/dL 8.6-10.6 9291061534) eGFR Calculation mL/min/1.73m2 (Non-) (test code = 5898664261) eGFR Calculation mL/min/1.73m2 () (test code = 5303084390) LYUDMILA (test code = LYUDMILA) Association of [...] tests). Lab Interpretation Abnormal (test code = 91169-0) [facility] Center[facility] [id number] 21:30:20 Test Item Value Reference Range Interpretation Comments LIPASE (test code = 4263310242) 73 U/L 0-220 Lab Interpretation (test code = Normal 53935-9) [facility] CenterChes 1 [id number] 21:02:07 No acute cardiopulmonary abnormality. Preliminary Report [...] fixation of the left humerusis partially visualized. [facility], Radiant Results Inft User - 11/25/2020 [...] reviewed this study and agree with theabove report.[facility] with [id number] 20:57:54 Test Item Value Reference Range Interpretation Comments WBC (test code = See_Comment [Automated 6690-2) message] The sy stem which generated this [...] RDW-SD (test code = 42.4 fL 39.0-49.9 93190-5) RDW-CV (test code = 12.2 % 12.0-15.5 788-0) PLT (test code = See_Comment [Automated 777-3) message] The sy stem which generated this result transmitted reference range : 166 - 358 10*3/ ?L. The reference r kanika was not used to interpret this result as normal/abnormal . MPV (test code = 8.9 fL 9.5-12.9 L 66282-5) NRBC/100 WBC (test See_Comment [Automat ed code = 8904410100) message] The system which generated this result transmitted reference range : 0.0 - 10.0 /100 WBCs. The refer ence range was not u sed to interpret th is result as normal/abnormal . NRBC x10^3 (test code <0.01 See_Comment [Auto mated = 2150377042) message] The s ystem which generated this result transmitted reference range : 10*3/?L. The reference range was not used to interpret this result as normal/abnormal . GRAN MAT (NEUT) % 68.9 % (test code = 770-8) IMM GRAN % (test code 0.50 % = 5977517202) LYMPH % (test code = 22.0 % 736-9) MONO % (test code = 5.7 % 5905-5) EOS % (test code = 2.6 % 713-8) BASO % (test code = 0.3 % 706-2) GRAN MAT x10^3(ANC) 4.49 10*3/uL 1.88-7.09 (test code = 7633428104) IMM GRAN x10^3 (test 0.03 10*3/uL 0.00-0.06 code = 6074544061) LYMPH x10^3 (test code 1.43 10*3/uL 1.32-3.29 = 731-0) MONO x10^3 (test code 0.37 10*3/uL 0.33-0.92 = 742-7) EOS x10^3 (test code = 0.17 10*3/uL 0.03-0.39 711-2) BASO x10^3 (test code <0.03 0.01-0.07 = 704-7) Lab Interpretation Abnormal (test code = 13163-7) [facility] [id number] 20:28:00 FAX: Mari Parry,Ebonie Suarez MD [place]: [address] St: REG Name: RENEE TAMAYO [facility] : 1980 Age/S: 40/F [address] [facility]: [id number] Loc: E.ERS2 [place], [place] Phys: [place] [address] Acct: [id number] Dis Date: Status: REG ER PHONE #: [phone] Exam Date: 04/11/20202012 FAX #: [phone] Reason: PAIN EXAMS: CPT CODE: [id number] CT ABD PELVIS W/CONT 84848 LOCATION: T18 EXAM: CT ABDOMEN AND PELVIS [...] Technologist: RAH GEE Trnscrd Dt/Tm: 04/11/2020 (2027) [id number] Orig Print D/T: S: 04/11/2020 (2031 PAGE 1 Signed ReportCOMPREHENSIVE METABOLIC [id number] 18:37:00 Test Item Value Reference Range Interpretation [...] 90 Units/L 50.0-136.0 N code = ALKP) [id number] 18:37:00 Test Item Value Reference Range Interpretation Comments LIPASE (test code = LIP) 140 Units/L 65.0-230.0 N [id number] 18:37:00 Test Item Value Reference Range Interpretation Comments ALCOHOL (test code 0.00 gm/dL 0.00-0.00 N ETHYL ALC OHOL VALUES - = ALC) INTERPRETATION: 0.050 GM/DL - NOT INT OXICATED 0.100 GM/DL - INTOXICATED 0.3 50-0.450 GM/DL - SEVEREL Y INTOXICATED 0.5 50 GM/DL- FATAL INTOXICAT ION DRUGS OF ABUSE SCREEN [id number] 18:33:00 Test Item Value Reference Range Interpretation [...] (test NEGATIVE NEGATIVE code = [place]) URINALYSIS [id number] 18:32:00 Test Item Value Reference Range Interpretation [...] code = TRACE NONE BACU) UR HCG [id number] 18:32:00 Test Item Value Reference Range Interpretation Comments UR HCG QUAL (test code = HCGQLU) NEGATIVE NEGATIVE URINALYSIS [id number] 18:31:00 Test Item Value Reference Range Interpretation [...] (test code = NONE BACU) UR HCG [id number] 18:31:00 Test Item Value Reference Range Interpretation Comments UR HCG QUAL (test code = HCGQLU) NEGATIVE COMPREHENSIVE METABOLIC [id number] 18:27:00 Test Item Value Reference Range Interpretation [...] TOTAL (test Units/L 50.0-136.0 code = ALKP) [id number] 18:27:00 Test Item Value Reference Range Interpretation Comments LIPASE (test code = LIP) Units/L 65.0-230.0 [id number] 18:27:00 Test Item Value Reference Range Interpretation Comments ALCOHOL (test code = ALC) gm/dL 0.00-0.00 CBC W/AUTO [id number] 18:16:00 Test Item Value Reference Range Interpretation [...]
[2022-07-22] MEDS ORDERED: dexAMETHasone 10 MG/ML VIAL ONE (12:54)
--- NOTE | 2022-07-22 12:55 | RAD REPORT ---
EXAM DESCRIPTION: RAD - Chest Pa And Lat (2 Views) - 07/22/2022 12:49 pm CLINICAL HISTORY: COUGH COMPARISON: Chest Single View dated 10/08/2021; Chest Single View dated 09/14/2020; Chest Single View d ated 08/30/2020; Chest Single View dated 08/03/2020 FINDINGS: Lines: None. Lungs: No evidence of edema or pneumonia. Pleural: No significant pleural effusions or pneumothorax. Cardiac: The heart size is within normal limits. Mediastinum: Within normal limits. Bones: No acute fractures. Plate and screw at the left proximal humerus. Other: None IMPRESSION: No acute cardiopulmonary disease.
[2022-07-22] MEDS ORDERED: LEVALBUTEROL 1.25 MG/3 ML NEB ONE (12:56)
[2022-07-22 14:25] LABS: SARS-COV-2 RT PCR NEGATIVE (NEGATIVE)
--- NOTE | 2022-07-22 15:17 | EDPHYS ---
Physician Documentation [facility] Name: Susana Tamayo Age: 42 yrs Sex: Female : 1980 Arrival Date: 07/22/2022 Time: 11:00 Bed Treatment Private MD: ED Physician Piero Velasquez HPI: 07/22 15:14 This 42 yrs old Female presents to ER via Ambulatory with complaints of Chest Pain, jmm Shortness Of Breath. 15:14 Onset: gradually, 1 day(s) ago. Is a 42-year-old female with history of asthma, GERD, jmm migraines and presents emerged department with complaints of body aches, cough, shortness of breath beginning last night. Denies vomiting or diarrhea. Denies abdominal pain.. 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 - Social history:: Smoking status: Patient reports the use of cigarette tobacco products, smokes one pack cigarettes per day. Reported history of juuling and/or vaping. ROS: 15:14 Constitutional: Positive for body aches, chills. jmm 15:14 Cardiovascular: Positive for chest pain, with cough. 15:14 Respiratory: Positive for cough, shortness of breath, wheezing. 15:14 All other systems are negative. Exam: 15:14 Constitutional: This is a well developed, well nourished patient who is awake, alert, jmm and in no acute distress. Head/Face: atraumatic. Eyes: EOMI, no conjunctival erythema appreciated ENT: Moist Mucus Membranes Neck: Trachea midline, Supple Chest/axilla: Normal chest wall appearance and motion. Cardiovascular: Regular rate and rhythm. No edema appreciated 15:14 Back: Normal ROM Skin: General appearance color normal MS/ Extremity: Moves all extremities, no obvious deformities appreciated, no edema noted to the lower extremities Neuro: Awake and alert Psych: Behavior is normal, Mood is normal, Patient is cooperative and pleasant 15:14 Respiratory: the patient does not display signs of respiratory distress, Respirations: normal, Breath sounds: wheezing: that is moderate, is heard diffusely. Vital Signs: 11:26 BP 139 / 79; Pulse 112; Resp 16; Temp 99.5(O); Pulse Ox 96% on R/A; Weight 81.65 kg; vg1 Height 5 ft. 9 in. (175.26 cm); Pain 8/10; 11:26 Body Mass Index 26.58 (81.65 kg, 175.26 cm) vg1 MDM: 11:[address] [facility] 15:16 Data reviewed: vital signs, nurses notes. ED course: Decreased wheezing on [facility] reevaluation. Patient states feeling much better. Patient vies follow-up PCP and otherwise given strict return precautions. Patient understood and agrees plan of care.. 07/22 11:32 Order name: COVID-19/FLU A+B; Complete Time: 14:47 vg1 07/22 11:32 Order name: Chest Pa And Lat (2 Views) XRAY; Complete Time: 13:00 vg1 Administered Medications: 13:00 Drug: Decadron (dexamethasone) 10 mg Route: PO; ap3 13:00 Drug: Xopenex (levalbuterol) (3) 1.25 mg Route: Inhalation; ap3 Disposition Summary: 07/22/22 15:17 Discharge Ordered Location: Home [facility] Condition: Stable [facility] Diagnosis - Influenza [facility] Followup: [facility] - With: Private Physician - When: 2 - 3 days - Reason: Recheck today's complaints, Continuance of care, Re-evaluation by your physician Discharge Instructions: - Discharge Summary Sheet [facility] - Influenza, Adult [facility] Forms: - Medication Reconciliation Form [facility] - Thank You Letter [facility] - Antibiotic Education [facility] - Prescription Opioid Use [facility] Prescriptions: - albuterol sulfate 90 mcg/actuation Inhalation HFA aerosol inhaler - inhale 2 puff by INHALATION route every 4-6 hours; 1 Pump; Refills: 0, Product [facility] Selection Permitted - Medrol ([place]) 4 mg Oral Tablets, Dose Pack - take 1 tablet by ORAL route as directed - follow package instructions; 1 jm packet; Refills: 0, Product Selection Permitted - Tamiflu 75 mg Oral Capsule - take 1 tablet by ORAL route every 12 hours for 5 days; 10 tablet; Refills: 0, yaya Product Selection Permitted Addendum: 07/24/2022 13:35 Co-signature as Attending Physician, Piero Velasquez MD I agree with the assessment and c kolb plan of care. Signatures: Dispatcher [employer] Piero Gusman MD MD cha Mickail, Joel, PA PA jmm Prokisch, Amanda RN RN ap3 Chika Bolton RN RN vg1
--- NOTE | 2022-07-22 15:17 | ER ---
Nurse's Notes [facility] Name: Susana Tamayo Age: 42 yrs Sex: Female : 1980 Arrival Date: 07/22/2022 Time: 11:00 Bed Treatment Private MD: Diagnosis: Influenza Presentation: 07/22 11:26 Chief complaint: Patient states: CP began this morning and stated whole body soreness, vg1 cough began last night. Also stated vomited x1 this morning. Coronavirus screen: Vaccine status: Patient reports being unvaccinated. Client denies travel out of the [place] in the last 14 days. Ebola Screen: Patient negative for fever greater than or equal to 101.5 degrees Fahrenheit, and additional compatible Ebola Virus Disease symptoms. Initial Sepsis Screen: Does the patient meet any 2 criteria? HR > 90 bpm. Does the patient have a suspected source of infection? No. Patient's initial sepsis screen is negative. Risk Assessment: Do you want to hurt yourself or someone else? Patient reports no desire to harm self or others. Onset of symptoms was July 22, 2022. 11:26 Method Of Arrival: Ambulatory vg1 11:26 Acuity: DIMPLE 3 vg1 Triage Assessment: 11:28 General: Appears in no apparent distress. uncomfortable, Behavior is cooperative. Pain: vg1 Complains of pain in chest Pain currently is 8 out of 10 on a pain scale. Cardiovascular: Patient's skin is warm and dry. Respiratory: Airway is patent Respiratory effort is even, unlabored, Breath sounds with wheezes bilaterally. 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 - Social history:: Smoking status: Patient reports the use of cigarette tobacco products, smokes one pack cigarettes per day. Reported history of juuling and/or vaping. Screenin:46 Abuse screen: Denies threats or abuse. Nutritional screening: No deficits noted. ap3 Tuberculosis screening: No symptoms or risk factors identified. Fall Risk None identified. Assessment: 15:47 Pain: Pain does not radiate. Pain began gradually. ap3 Vital Signs: 11:26 BP 139 / 79; Pulse 112; Resp 16; Temp 99.5(O); Pulse Ox 96% on R/A; Weight 81.65 kg; vg1 Height 5 ft. 9 in. (175.26 cm); Pain 8/10; 11:26 Body Mass Index 26.58 (81.65 kg, 175.26 cm) vg1 ED Course: 11:00 Patient arrived in ED. as 11:28 Triage completed. vg1 11:28 Arm band placed on. vg1 11:32 Jamie Sabillon PA is PHCP. [facility] 11:32 Piero Velasquez MD is Attending Physician. [facility] 12:49 Liz Dawkins, IBETH is Primary Nurse. ap3 12:51 Chest Pa And Lat (2 Views) XRAY In Process Unspecified. EDMS 13:28 COVID swab sent to lab. jw7 13:28 COVID-19/FLU A+B Sent. jw7 15:46 Patient has correct armband on for positive identification. Pulse ox on. NIBP on. ap3 15:46 No provider procedures requiring assistance completed. Patient did not have IV access ap3 during this emergency room visit. Patient maintains SpO2 saturation greater than 95% on room air. Administered Medications: 13:00 Drug: Decadron (dexamethasone) 10 mg Route: PO; ap3 13:00 Drug: Xopenex (levalbuterol) (3) 1.25 mg Route: Inhalation; ap3 Medication: 15:47 VIS not applicable for this client. ap3 Outcome: 15:17 Discharge ordered by . [facility] 15:46 Discharged to home ambulatory. ap3 15:46 Condition: good 15:46 Discharge instructions given to patient, Instructed on discharge instructions, follow up and referral plans. medication usage, Demonstrated understanding of instructions, follow-up care, medications, Prescriptions given X 3. 15:47 Patient left the ED. ap3 Signatures: Dispatcher [employer] EDMS Jamie Sabillon PA PA jmm Martinez, Amelia as Prokisch, Amanda, RN RN ap3 Chika Bolton, RN RN vg1 Lucía Benito jw7
[2022-07-22 15:52] VITALS: BP 139/79; TEMP 99.5; O2SAT 96
== END 2022-07-22 15:47 | disposition home or self-care (01) ==
LOC: ER 10:59
DX: J11.1 Influenza due to unidentified influenza virus with other respiratory manifestations (principal); Z20.822 Contact with and (suspected) exposure to COVID-19; Z88.5 Allergy status to narcotic agent
CPT/HCPCS: 0240U; 71046; 99285; J1100; J7614

== ENCOUNTER 2023-01-13 14:39 | Emergency (ER) | payer SELFPAY ==
--- OUTSIDE RECORDS SUMMARY | 2023-01-13 14:44 | XMS REPORT | Continuity of Care Document ---
:1980 Author Organization [facility] t Address [address] [place] [address] [address] [place] [address] Care Team Providers Name Role Phone PCP, PATIENT DOES NOT HAVE A Primary Care Physician JONATHAN Clinton Attending Clinician Unavailable Jonathan Somers DO Attending Clinician Sidra Suh DO Attending Clinician Danielle Montaño Attending Clinician Doctor Unassigned, [place] Attending Clinician Unavailable Therapy, Adc Covid Infusion [...] [place] 00 [facility] Allergies, Adverse Reactions, Alerts Allergy Allergy Status Severity Reaction(s) Onset Inactive Treating Comm ents Source Name Type Date Date Clinician No Known DA Active [facility] [place] 00:[facility]: d 00 [facility] No Known DA Active U [facility] Allergie 8 [place] 00:00: d 00 [facility] PROPOXYP DRUG Active N/V Univers HENE 2-08 ity of N-ACETAM 00:00: [place] INOPHEN 00 [facility] Propoxyp Propensi Active Nausea Univer s hene ty to and/or 2-08 ity of N-Acetam adverse Vomiting 00:00: [place] inophen reaction 00 [facility] s [place] Social History Social Habit Start Date Stop Date Quantity Comments Source History of tobacco Cigarette Smoker University of use [facility] [place] Exposure to 2022-06-17 2022-06-27 Not sure [facility] SARS-CoV-2 (event) 00:00:00 15:28:00 [facility] [place] Alcohol intake 2022-06-27 2022-06-27 University of 00:00:00 00:00:00 [facility] [place] Cigarettes smoked 2017-10-12 2017-10-12 Univers ity of current (pack per 00:00:00 00:00:00 [facility] ) - Reported Branch Cigarette 2017-10-12 2017-10-12 University of pack-years 00:00:00 00:00:00 [facility] [place] Tobacco use and 2017-10-12 2017-10-12 Smokeless Universit y of exposure 00:00:00 00:00:00 tobacco non-user [facility] Sex Assigned At [birth year] Universit y of 00:00:00 00:00:00 [facility] [place] Smoking Status Start Date Stop Date Source Smokes tobacco daily 2017-10-12 00:00:00 Univers ity of [facility] [place] Medications Ordered Filled Start Stop Current Ordering Indication Dosage Frequency Signature Comments Components Source Medication Medication Date Date Medication? Clinician (SIG) Name Name HYDROcodone 2021-09- No 1{tbl} 1 tablet, Univers -acetaminop 0-25 10-24 Oral, ity of [place] (NORCO) 00:15: 23:24 [place]CE[place] 1 [place]325 [place] 00 :00 dose, On Medica l tablet 1 Mon Branch tablet 06/27/22 at 1915, Routine casirivimab No [id number] 1200mg Univers -imdevimab 04-22 ity of (REGEN-COV 19:30: 19:24 [place] (EUA)) 00 :00 Medical 1,200 mg in Branch NaCl 0.9% (NS) 60 mL IV infusion casirivimab No [id number] 1200mg 1,200 mg, Univers -imdevimab 04-22 IV ity of (REGEN-COV 19:30: 19:24 Infusion, [place] (EUA[place] 00 :00 ONCE, Medical 1,200 mg in Administer Br anch NaCl 0.9% over 20 (NS) 60 mL Minutes, IV infusion Karina 04/22/21 at 1430, For 1 dose
Ad kai [place] as an IV infusion via pump or gravity over at least 60 minutes through an intravenou s line containing a sterile, in-line or add-on 0.2-micron polyethers ulfone (PES) filter.&nb sp;Stable 36 hours refrigerat ed; 4 hours at room temperatur e. &nbs p;
ondansetron No 4mg 4 mg, Univ ers (ZOFRAN-ODT 04-16 Oral, ity of ) 17:30: 16:34 ONCE, 1 [place] disintegrat 00 :00 dose, Fri Med ical ing tablet 04/16/21 at [facility] 4 mg 1230, Routine dexamethaso No 10mg [...] medication : EMERGENCY ROOM, ondansetron 0 Yes [id number] 4mg Take 1 Univers (ZOFRAN 8-13 tablet by ity of ODT) 4 mg 00:00: mouth [place] disintegrat 00 every 8 Medic al ing tablet (eight) Branch hours as needed for Nausea and Vomiting (N/V). bromphenira 0 Yes [id number] 5mL Take 5 mL Univers mine-pseudo 8-13 by mouth 4 it y of ephedrine-D 00:00: (four) [place] (BROMFED 00 times Medical DM) 2-30-10 daily as Bran ch mg/5 mL needed for syrup Congestion /Allergies . ondansetron Yes [id number] 4mg Take 1 Univers (ZOFRAN 8-13 tablet by ity of ODT) 4 mg 00:00: mouth [place] disintegrat 00 every 8 Medic al ing tablet (eight) Branch hours as needed for Nausea and Vomiting (N/V). bromphenira 2020-0 Yes [id number] 5mL Take 5 mL Univers mine-pseudo 8-13 by mouth 4 it y of ephedrine-D 00:00: (four[place] (BROMFED 00 times Medical DM) 2-30-10 daily as Bran ch mg/5 mL needed for syrup Congestion /Allergies . ondansetron Yes [id number] 4mg Take 1 Univers (ZOFRAN 8-13 tablet by ity of ODT) 4 mg 00:00: mouth [place] disintegrat 00 every 8 Medic al ing tablet (eight) Branch hours as needed for Nausea and Vomiting (N/V). bromphenira 0 Yes [id number] 5mL Take 5 mL Univers mine-pseudo 8-13 by mouth 4 it y of ephedrine-D 00:00: (four) [place] (BROMFED 00 times Medical DM) 2-30-10 daily as Bran ch mg/5 mL needed for syrup Congestion /Allergies . ondansetron 2021-0 Yes [id number] 4mg Take 1 Univers (ZOFRAN 8-13 tablet by ity of ODT) 4 mg 00:00: mouth [place] disintegrat 00 every 8 Medic al ing tablet (eight) Branch hours as needed for Nausea and Vomiting (N/V). bromphenira 2021-0 Yes [id number] 5mL Take 5 mL Univers mine-pseudo 8-13 by mouth 4 it y of ephedrine-D 00:00: (four) [place] (BROMFED 00 times Medical DM) 2-30-10 daily as Bran ch mg/5 mL needed for syrup Congestion /Allergies . ondansetron 1-0 Yes [id number] 4mg Take 1 Univers (ZOFRAN 8-13 tablet by ity of ODT) 4 mg 00:00: mouth [place] disintegrat 00 every 8 Medic al ing tablet (eight) Branch hours as needed for Nausea and Vomiting (N/V). bromphenira 2021-0 Yes [id number] 5mL Take 5 mL Univers mine-pseudo 8-13 by mouth 4 it y of ephedrine-D 00:00: (four) [place] (BROMFED 00 times Medical DM) 2-30-10 daily as Bran ch mg/5 mL needed for syrup Congestion /Allergies . ondansetron 1-0 Yes [id number] 4mg Take 1 Univers (ZOFRAN 8-13 tablet by ity of ODT) 4 mg 00:00: mouth [place] disintegrat 00 every 8 Medic al ing tablet (eight) Branch hours as needed for Nausea and Vomiting (N/V). bromphenira 2021-0 Yes [id number] 5mL Take 5 mL Univers mine-pseudo 8-13 by mouth 4 it y of ephedrine-D 00:00: (four) [place] (BROMFED 00 times Medical DM) 2-30-10 daily as Bran ch mg/5 mL needed for syrup Congestion /Allergies . ondansetron 2021-0 Yes [id number] 4mg Take 1 Univers (ZOFRAN 8-13 tablet by ity of ODT) 4 mg 00:00: mouth [place] disintegrat 00 every 8 Medic al ing tablet (eight) Branch hours as needed for Nausea and Vomiting (N/V). bromphenira Yes [id number] 5mL Take 5 mL Univers mine-pseudo 8-13 by mouth 4 it y of ephedrine-D 00:00: (four[place] (BROMFED 00 times Medical DM) 2-30-10 daily as Bran ch mg/5 mL needed for syrup Congestion /Allergies . predniSONE 2020- No [id number] 40mg Take 2 Univers 20 mg 8-13 [...] Mon Branch 12/28/20 at 2014, SHEBA
[facility] Restricted medication : GENO VILLALOBOS ibuprofen Yes [id number] 600mg Take 1 Univers 600 mg 4-26 tablet by ity of tablet 00:00: mouth [place] 00 every 6 Medical (six) Branch hours as needed for Pain (scale 4-6). ibuprofen Yes [id number] 600mg Take 1 Univers 600 mg 4-26 tablet by ity of tablet 00:00: mouth [place] 00 every 6 Medical (six) Branch hours as needed for Pain (scale 4-6). ibuprofen 0 Yes [id number] 600mg Take 1 Univers 600 mg 4-26 tablet by ity of tablet 00:00: mouth [place] 00 every 6 Medical (six) Branch hours as needed for Pain (scale 4-6). ibuprofen 0 Yes [id number] 600mg Take 1 Univers 600 mg 4-26 tablet by ity of tablet 00:00: mouth [place] 00 every 6 Medical (six) Branch hours as needed for Pain (scale 4-6). ibuprofen Yes [id number] 600mg Take 1 Univers 600 mg 4-26 tablet by ity of tablet 00:00: mouth [place] 00 every 6 Medical (six) Branch hours as needed for Pain (scale 4-6). ibuprofen 0 Yes [id number] 600mg Take 1 Univers 600 mg 4-26 tablet by ity of tablet 00:00: mouth [place] 00 every 6 Medical (six) Branch hours as needed for Pain (scale 4-6). ibuprofen Yes [id number] 600mg Take 1 Univers 600 mg 4-26 tablet by ity of tablet 00:00: mouth [place] 00 every 6 Medical (six) Branch hours as needed for Pain (scale 4-6). ibuprofen Yes [id number] 600mg Take 1 Univers 600 mg 4-26 tablet by ity of tablet 00:00: mouth [place] 00 every 6 Medical (six) Branch hours as needed for Pain (scale 4-6). cephALEXin 2020- No [id number] 500mg Take 1 Univers 500 mg 4-26 [...] 20:34 ONCE, 1 [place] 00 :00 dose, [facility] Medical 11/25/20 at Branch 1630, STAT [...] tablet hours as needed (t). triamcinolo Yes [id number] Apply to Univers ne 7-18 area(s) 2 ity of acetonide 00:00: (two) [place] (KENALOG) 00 times Medical 0.1 % daily. Branch ointment triamcinolo Yes [id number] Apply to Univers ne 7-18 area(s) 2 ity of acetonide 00:00: (two) [place] (KENALOG) 00 times Medical 0.1 % daily. Branch ointment triamcinolo Yes [id number] Apply to Univers ne 7-18 area(s) 2 ity of acetonide 00:00: (two) [place] (KENALOG) 00 times Medical 0.1 % daily. Branch ointment triamcinolo Yes [id number] Apply to Univers ne 7-18 area(s) 2 ity of acetonide 00:00: (two) [place] (KENALOG) 00 times Medical 0.1 % daily. Branch ointment triamcinolo Yes [id number] Apply to Univers ne 7-18 area(s) 2 ity of acetonide 00:00: (two) [place] (KENALOG) 00 times Medical 0.1 % daily. Branch ointment triamcinolo Yes [id number] Apply to Univers ne 7-18 area(s) 2 ity of acetonide 00:00: (two) [place] (KENALOG) 00 times Medical 0.1 % daily. Branch ointment triamcinolo Yes [id number] Apply to Univers ne 7-18 area(s) 2 ity of acetonide 00:00: (two) [place] (KENALOG) 00 times Medical 0.1 % daily. Branch ointment triamcinolo 2012-0 Yes [id number] Apply to [facility] 7-18 area(s) 2 ity of acetonide 00:00: (two) [place] (KENALOG) 00 times Medical 0.1 % daily. Branch ointment triamcinolo 2012-0 Yes [id number] Apply to [facility] 7-18 area(s) 2 ity of acetonide 00:00: (two) [place] (KENALOG) 00 times Medical 0.1 % daily. Branch ointment Vital Signs Vital Name Observation Time Observation Value Comments Source Systolic blood 2022-06-27 23:00:00 114 mm[Hg] Univer sity of [facility] Diastolic blood 2022-06-27 23:00:00 77 mm[Hg] Unive rsity of [facility] Heart rate 2022-06-27 23:00:00 96 /min [facility] Respiratory rate 2022-06-27 23:00:00 16 /min [facility] Oxygen saturation in 2022-06-27 23:00:00 96 /min [facility] Arterial blood by [facility] Pulse oximetry Branch Body temperature 2022-06-27 20:29:00 36.61 Jeanette [facility] Body height 2022-06-27 20:29:00 175.3 cm [facility] Body weight 2022-06-27 20:29:00 81.647 kg [facility] BMI 2022-06-27 20:29:00 26.58 kg/m2 [facility] Systolic blood 2021-05-03 17:27:00 127 mm[Hg] Univer sity of [facility] Diastolic blood 2021-05-03 17:27:00 74 mm[Hg] Unive rsity of [facility] Heart rate 2021-05-03 17:27:00 94 /min [facility] Body temperature 2021-05-03 17:27:00 37.11 Jeanette [facility] 2021-05-03 17:27:00 16 /min [facility] Body height 2021-05-03 17:27:00 175.3 cm [facility] [place] [facility] Body weight 2021-05-03 17:27:00 68.04 kg [facility]i ty [facility] [place] [facility] BMI 2021-05-03 17:27:00 22.15 kg/m2 Universi ty of [place] [facility] Oxygen saturation in 2021-05-03 17:27:00 97 /min University of Arterial blood by [facility] anuj Pulse oximetry Branch Systolic blood 2021-04-22 20:25:00 99 mm[Hg] Univer sity of pressure [place] [facility] Diastolic blood 2021-04-22 20:25:00 64 mm[Hg] Unive rsity of pressure [place] [facility] Heart rate 2021-04-22 20:25:00 75 /min Universi ty [facility] [place] [facility] Body temperature 2021-04-22 20:25:00 36.5 Jeanette Univ ersity of [place] [facility] Respiratory rate 2021-04-22 20:25:00 17 /min Univ ersity of [place] [facility] Oxygen saturation in 2021-04-22 20:25:00 99 /min University of Arterial blood by [facility] Pulse oximetry Branch Body height 2021-04-22 18:25:00 175.3 cm [facility]i [facility] [place] [facility] Body weight 2021-04-22 18:25:00 84.823 kg Universi ty [facility] [place] [facility] BMI 2021-04-22 18:25:00 27.62 kg/m2 [facility]i ty [facility] [place] [facility] Systolic blood 2021-04-16 16:16:00 137 mm[Hg] Univer sity of [facility] [place] [facility] Diastolic blood 2021-04-16 16:16:00 68 mm[Hg] Unive rsity of [facility] [place] [facility] Heart rate 2021-04-16 16:16:00 78 /min Universi ty [facility] [place] [facility] Body temperature 2021-04-16 16:16:00 36.83 Jeanette Univ ersity [facility] [place] [facility] Respiratory rate 2021-04-16 16:16:00 18 /min Univ ersity [facility] [place] [facility] Body height 2021-04-16 16:16:00 175.3 cm [facility]i ty [facility] [place] [facility] Body weight 2021-04-16 16:16:00 80.74 kg Universi ty [facility] [place] [facility] BMI 2021-04-16 16:16:00 26.29 kg/m2 [facility]i ty [facility] [place] [facility] Oxygen saturation in 2021-04-16 16:16:00 97 /min University of Arterial blood by [facility] Pulse oximetry Branch Systolic blood 2020-12-29 00:00:00 123 mm[Hg] Univer sity of [facility] [place] [facility] Diastolic blood 2020-12-29 00:00:00 82 mm[Hg] Unive rsity of [facility] [place] [facility] Heart rate 2020-12-29 00:00:00 77 /min Universi ty [facility] [place] [facility] Respiratory rate 2020-12-29 00:00:00 16 /min Univ ersity [facility] [place] [facility] Oxygen saturation in 2020-12-29 00:00:00 99 /min University of Arterial blood by [facility] Pulse oximetry Branch Body temperature 2020-12-28 20:34:00 37 Jeanette Univ ers[facility] [place] [facility] Body weight 2020-12-28 20:34:00 68.04 kg [facility]i ty [facility] [place] [facility] BMI 2020-12-28 20:34:00 22.81 kg/m2 Universi ty [facility] [place] [facility] Systolic blood 2020-12-29 00:00:00 123 mm[Hg] Univer sity of [facility] [place] [facility] Diastolic blood 2020-12-29 00:00:00 82 mm[Hg] Unive rsity of [facility] [place] [facility] Heart rate 2020-12-29 00:00:00 77 /min [facility]i ty [facility] [place] [facility] Respiratory rate 2020-12-29 00:00:00 16 /min Univ ers[facility] [place] [facility] Oxygen saturation in 2020-12-29 00:00:00 99 /min University of Arterial blood by [facility] Pulse oximetry Branch Body temperature 2020-12-28 20:34:00 37 Jeanette Univ ers[facility] [place] [facility] Body weight 2020-12-28 20:34:00 68.04 kg [facility]i [facility] [place] [facility] BMI 2020-12-28 20:34:00 22.81 kg/m2 [facility] [place] [facility] Systolic blood 2020-11-25 22:00:00 125 mm[Hg] Univer sity of [facility] [place] [facility] Diastolic blood 2020-11-25 22:00:00 87 mm[Hg] Unive rsity of pressure [place] [facility] Heart rate 2020-11-25 22:00:00 89 /min Universi ty [facility] [place] [facility] [place] Respiratory rate 2020-11-25 22:00:00 19 /min [facility] ersity of [facility] [place] Oxygen saturation in 2020-11-25 22:00:00 96 /min University of Arterial blood by [facility] Pulse oximetry Branch Body temperature 2020-11-25 20:16:00 36.67 Jeanette [facility] [place] Body weight 2020-11-25 20:16:00 68.04 kg Universi ty [facility] [place] [facility] [place] BMI 2020-11-25 20:16:00 22.81 kg/m2 Universi ty [facility] Systolic blood 2020-11-25 22:00:00 125 mm[facility]Hg] [facility] Diastolic blood 2020-11-25 22:00:00 87 mm[Hg] [facility] Heart rate 2020-11-25 22:00:00 89 /min Universi ty [facility] [place] [facility] [place] Respiratory rate 2020-11-25 22:00:00 19 /min [facility] Oxygen saturation in 2020-11-25 22:00:00 96 /min University of Arterial blood by [facility] Pulse oximetry Branch Body temperature 2020-11-25 20:16:00 36.67 Jeanette [facility] ersity [facility] Body weight 2020-11-25 20:16:00 68.04 kg Universi ty [facility] BMI 2020-11-25 20:16:00 22.81 kg/m2 [facility] Procedures Procedure Date / Time Performed Performing Clinician Sour e D-DIMER 2022-06-27 22:38:00 Singer [facility] [place] [facility] LIPASE 2022-06-27 21:15:00 Singer [facility] [place] [facility] MAGNESIUM 2022-06-27 21:15:00 Singer [facility] [place] [facility] TROPONIN I 2022-06-27 21:15:00 Singer [facility] [place] [facility] COMP. METABOLIC PANEL 2022-06-27 21:15:00 Jonathan Somers [facility] ([id number]) [facility] CBC WITH DIFF 2022-06-27 21:15:00 Singer [facility] [place] [facility] N-TERMINAL PRO-BNP 2022-06-27 21:15:00 Singer [facility] Medical Branch XR CHEST 1 VW 2022-06-27 21:00:39 Singer [facility] [place] [facility] CONSENT/REFUSAL FOR 2022-06-27 19:54:43 Doctor Unassigned, No [facility] [place] DIAGNOSIS AND Name Medical Branch TREATMENT CONSENT/REFUSAL FOR 2021-05-03 16:52:48 Doctor Unassigned, No Un [facility] [place] DIAGNOSIS AND Name Medical Branch TREATMENT ASSIGNMENT OF BENEFITS 2021-04-16 17:52:37 Doctor Unassigned, No [facility] RAPID STREP SCREEN FOR 2021-04-16 16:30:00 Mary Beth Santacruz [facility] GROUP A Medical Branch CONSENT/REFUSAL FOR 2021-04-16 15:59:46 Doctor Unassigned, No Un [facility] [place] DIAGNOSIS AND Name Medical Branch TREATMENT URINALYSIS 2020-12-29 00:19:00 Geno Villalobos [facility] Medical [place] CONSENT/REFUSAL FOR 2020-12-28 20:23:27 Doctor Unassigned, No Un [facility] [place] DIAGNOSIS AND Name Medical Branch TREATMENT TROPONIN I 2020-11-25 22:10:00 Britany [facility] XR CHEST 1 VW 2020-11-25 20:46:[facility] 2020-11-25 20:34:00 [facility]OP[facility] 2020-11-25 20:34:00 [facility]EL 2020-11-25 20:34:00 [id number] Branch (ALB,T.PRO,BILI T,BU/BC,ALT,AST,ALK PHOS) BASIC METABOLIC PANEL 2020-11-25 20:34:00 Britany, [facility] (NA, K, CL, CO2, Medical Branch GLUCOSE, BUN, CREATININE, CA) CBC WITH DIFF 2020-11-25 20:34:00 [facility] [place] N-TERMINAL PRO-BNP 2020-11-25 20:34:00 Huang Garg [facility] HB ECG ROUTINE & 2020-11-25 20:22:52 Huang Garg [facility] RHYTHM STRIP [facility] Encounters Start End Encounter Admission Attending Care Care Encounter Source Date/Time Date/Time Type Type Clinicians Facility Department ID 2021-07-05 Emergency [facility] [id number] Univers 19:02:36 ity [facility] 2021-07-05 Emergency [facility] [id number] Univers 15:21:12 ity [facility] 2021-07-04 Emergency [facility] [id number] Univers 15:22:03 ity [facility] 2022-06-27 2022-06-27 [id number] Univers 15:34:00 18:56:00 JONATHAN morocho [facility] 2022-06-27 2022-06-27 Emergency [facility] [id number] Univers 15:34:00 18:56:00 Jonathan JAMESON [id number] i ty of [place] 4.2.7.2.686 [facility] [id number] [facility] 084 Branch 2021-05-03 2021-05-03 Emergency Sidra Suh [facility] [id number] Univers 12:30:00 21:32:00 Danielle [place] [id number] ity of [place] 4.2.7.2.686 [facility] [id number] [facility] 084 Branch 2021-05-03 2021-05-03 Orders Doctor FERMÍN [id number] Univers 00:00:00 00:00:00 Only Unassigned, ROLAND [id number] ity of [place] [facility] 4.2.7.2.686 [facility] [id number] [facility] 009 Branch 2021-04-22 2021-04-22 Nurse Therapy, Adc Covid Infusion [facility] [id number] Univers 12:53:19 13:53:19 Visit Darrell Francoiston [id number] ity of [place] [address] [facility] [id number] [place] [id number] Branch 2021-04-22 2021-04-22 Outpatient R IHSAN [facility] [id number] Univers 13:00:00 13:00:00 DARRELL morocho of [facility] [place] 2021-04-16 2021-04-16 Emergency Santacruz, [facility] [id number] Univers 11:17:00 13:59:00 Mary Beth [place] [id number] i ty of [place] 4.2.7.2.686 [facility] [id number] [address] 2020-12-28 2020-12-28 [facility] [id number] Univers 17:44:00 21:05:00 Mallikaashleyerickson Thomas Sanjay [id number] ity of [place] 4.2.7.2.686 [facility] [id number] [address] 2020-12-28 2020-12-28 [facility] [id number] 17:44:00 21:05:00 Mallikadomenico Jameson [id number] [place] 4.2.7.2.686 [place] [id number] [facility] 2020-11-25 2020-11-25 Emergency [facility] [id number] Univers 15:17:00 17:55:00 Cyncatherine Sanjay [id number] i ty of [place] 4.2.7.2.686 [facility] [id number] [address] 2020-11-25 2020-11-25 Emergency [facility] [id number] Univers 15:17:00 17:55:00 CYNISE ity of [facility] [place] 2020-11-25 2020-11-25 [facility] [id number] 15:17:00 17:55:00 Cynise Aldrich [id number] [place] 4.2.7.2.686 [place] [id number] 2020-04-11 2020-04-14 [facility] [id number] [facility] 17:34:00 06:46:16 78 [facility] Results Test Description Test Time Test Comments Results Result Comments Source D-DIMER 2022-06-27 23:19:10 Test Item Value Reference Range Interpretation Comme nts D-DIMER (test code = See_Comment [Autom ated message] The [id number]) system which ge nerated this result tra [...] diagnosis. Lab Interpretation Normal (test code = 63454-7) [id number] 21:54:56 Test Item Value Reference Interpretation Comments Range TROPONIN I (test 0.003 ng/mL See_Comment [Automated code = 9237361083) message] The system which generated this result [...] biotin. Lab Interpretation Normal (test code = 50405-8) [facility] [id number] 21:51:38 Test Item Value Reference Range Interpretation Comments NT-proBNP (test code 29 pg/mL See_Comment [Autom ated = 5992713477) message] The system which generated this result transmitted reference range : <=125. The reference range was not used to interpret this result as normal/abnormal . LYUDMILA (test code = LYUDMILA) Biotin has been reported to cause a negative bias, interpret results relative to patient's use of biotin. Lab Interpretation Normal (test code = 70607-2) [facility] ([id number])2022-06-27 21:43:18 Test Item Value Reference Range Interpretation Comments NA (test code = 135 mmol/L 135-145 [id number]) K (test code = 4.5 mmol/L 3.5-5 2492918516) CL (test code = 100 mmol/L 98-108 7989917058) CO2 TOTAL (test code 25 mmol/L 23-31 = 5734442094) AGAP (test code = 2-16 7017670665) BUN (test code = 10 mg/dL 7-23 7570651769) GLUCOSE (test code = 91 mg/dL 70-110 3392747853) CREATININE (test code 0.75 mg/dL 0.5-1.04 = 7004887190) TOTAL BILI (test code 0.7 mg/dL 0.1-1.1 = 3268559413) CALCIUM (test code = 9.9 mg/dL 8.6-10.6 1899089873) T PROTEIN (test code 7.9 g/dL 6.3-8.2 = 3146730590) ALBUMIN (test code = 4.8 g/dL 3.5-5 7657848985) ALK PHOS (test code = 78 U/L 34-122 6041656458) ALTv (test code = 15 U/L 5-35 1742-6) AST(SGOT) (test code 24 U/L 13-40 = 1983107494) eGFR (test code = mL/min/1.73m2 8163757933) LYUDMILA (test code = LYUDMILA) Association of [...] or abnormalities in imaging tests). [facility] 21:43:18 Test Item Value Reference Range Interpretation Comments MAGNESIUM (test code = 0618493288) 2.1 mg/dL 1.7-2.4 Lab Interpretation (test code = Normal 75126-2) [facility] 21:42:58 Test Item Value Reference Range Interpretation Comments LIPASE (test code = 6359071353) 104 U/L 0-220 Lab Interpretation (test code = Normal 73687-2) [facility] WITH [id number] 21:30:16 Test Item Value Reference Range Interpretation [...] (test code = 38.7 fL 39-49.9 L 40073-1) RDW-CV (test code = 11.5 % 12-15.5 L 788-0) PLT (test code = See_Comment [Automated 777-3) message] The sy stem which generated this result transmitted reference range : 166 - 358 10*3/ ?L. The reference r kanika was not used to interpret this result as normal/abnormal . MPV (test code = 8.9 fL 9.5-12.9 L 53279-0) NRBC/100 WBC (test See_Comment [Automat ed code = 5656166336) message] The system which generated this result transmitted reference range : 0.0 - 10.0 /100 WBCs. The refer ence range was not u sed to interpret th is result as normal/abnormal . NRBC x10^3 (test code See_Comment [Auto mated = 9565235919) message] The s ystem which generated this result transmitted reference range : 10*3/?L. The reference range was not used to interpret this result as normal/abnormal . GRAN MAT (NEUT) % 68.5 % (test code = 770-8) IMM GRAN % (test code 0.60 % = 0318428896) LYMPH % (test code = 21.3 % 736-9) MONO % (test code = 6.8 % 5905-5) EOS % (test code = 2.4 % 713-8) BASO % (test code = 0.4 % 706-2) GRAN MAT x10^3(ANC) 6.86 10*3/uL 1.88-7.09 (test code = 2177824919) IMM GRAN x10^3 (test 0.06 10*3/uL 0-0.06 code = 5534754525) LYMPH x10^3 (test code 2.13 10*3/uL 1.32-3.29 = 731-0) MONO x10^3 (test code 0.68 10*3/uL 0.33-0.92 = 742-7) EOS x10^3 (test code = 0.24 10*3/uL 0.03-0.39 711-2) BASO x10^3 (test code 0.04 10*3/uL 0.01-0.07 = 704-7) Lab Interpretation Abnormal (test code = 22569-8) [facility] STREP SCREEN FOR GROUP [id number] 17:16:32 Test Item Value Reference Range Interpretation Comments Streptococcus pyogenes Negative Negative (group A) antigen (test code = 86716-2) LYUDMILA (test code = LYUDMILA) Performed on [employer]. Lab Interpretation (test Normal code = 67470-8) [facility]2021-04-27 00:53:40 Test Item Value Reference Range Interpretation Comments APPEARANCE (test code = Clear Clear 9635388320) COLOR (test code = Straw Yellow A 7952870751) PH (test code = 4.8-8.0 1675261128) SP GRAVITY (test code = 1.003-1.030 7264922273) GLU U QUAL (test code = Normal Normal 7330612171) BLOOD (test code = Negative Negative 4390797872) KETONES (test code = Negative Negative 7515392120) PROTEIN (test code = Negative Negative 2887-8) UROBILIN (test code = Normal Normal 2459760508) BILIRUBIN (test code = Negative Negative 1663048222) NITRITE (test code = Negative Negative 8421582544) LEUK ADALI (test code = Negative Negative 5393869546) RBC/HPF (test code = <1 See_Comment [Autom ated message] 6639400259) The system [employer]ner generated this result transmitted ref erence range: 0 - 3 HP F. The reference range was not used to int erpret this result as normal/abnormal . WBC/HPF (test code = <1 See_Comment [Autom ated message] 0264249025) The system [employer] generated this result transmitted ref erence range: 0 - 5 HP F. The reference range was not used to int erpret this result as normal/abnormal . BACTERIA (test code = Negative Negative 6579434309) Lab Interpretation (test Abnormal code = 00968-3) [facility] [id number] 22:39:08 Test Item Value Reference Range Interpretation Comments TROPONIN I (test 0.000 ng/mL See_Comment [Automated code = 2913976032) message] The system which generated this result [...] ? Lab Interpretation Normal (test code = 17456-0) [facility] [id number] 21:51:20 Test Item Value Reference Range Interpretation Comments TROPONIN I (test 0.001 ng/mL See_Comment [Automated code = 9782368925) message] The system which generated this result [...] ? Lab Interpretation Normal (test code = 27207-0) [facility]N-[facility]AL [id number] 21:39:24 Test Item Value Reference Range Interpretation Comments NT-proBNP (test code 18 pg/mL See_Comment [Autom ated = 9769581961) message] The system which generated this result transmitted reference range : <=125. The reference range was not used to interpret this result as normal/abnormal . LYUDMILA (test code = LYUDMILA) Biotin has been reported to cause a negative bias, interpret results relative to patient's use of biotin. Lab Interpretation Normal (test code = 80139-1) [facility] (ALB, T.PRO, BILI T, BU/BC, ALT, AST, ALK PHOS)2020-11-25 21:30:41 Test Item Value Reference Range Interpretation Comments TOTAL BILI (test code = 0247007746) 0.5 mg/dL 0.1-1.1 BILI UNCON (test code = 0794091256) 0.4 mg/dL 0.1-1.1 BILI CONJ (test code = 5798792255) 0.0 mg/dL 0.0-0.3 T PROTEIN (test code = 7114477515) 7.2 g/dL 6.3-8.2 ALBUMIN (test code = 8744369253) 4.2 g/dL 3.5-5.0 ALK PHOS (test code = 0453835897) 83 U/L 34-122 ALTv (test code = 1742-6) 15 U/L 5-35 AST(SGOT) (test code = 2521736594) 23 U/L 13-40 Lab Interpretation (test code = Normal 77002-4) [facility] Metabolic Panel (NA, K, CL, CO2, GLUCOSE, BUN, CREATININE, CA)2020-11-25 21:30:20 Test Item Value Reference Range Interpretation Comments NA (test code = 137 mmol/L 135-145 5045141869) K (test code = 3.2 mmol/L 3.5-5.0 L 8981359199) CL (test code = 106 mmol/L 98-108 7702572303) CO2 TOTAL (test code = 23 mmol/L 23-31 6703398639) AGAP (test code = 2-16 9034391244) BUN (test code = 4 mg/dL 7-23 L 3572500968) GLUCOSE (test code = 167 mg/dL 70-110 H 8467617401) CREATININE (test code = 0.60 mg/dL 0.50-1.04 6234360807) CALCIUM (test code = 8.9 mg/dL 8.6-10.6 7068414219) eGFR Calculation mL/min/1.73m2 (Non-) (test code = 0150961558) eGFR Calculation mL/min/1.73m2 () (test code = 9341095296) LYUDMILA (test code = LYUDMILA) Association of [...] tests). Lab Interpretation Abnormal (test code = 48045-9) [facility] Center[facility] [id number] 21:30:20 Test Item Value Reference Range Interpretation Comments LIPASE (test code = 6316048028) 73 U/L 0-220 Lab Interpretation (test code = Normal 51264-5) [facility] CenterChes 1 [id number] 21:02:07 No acute cardiopulmonary abnormality. Preliminary Report [...] fixation of the left humerusis partially visualized. [facility], Radiant Results Inft User - [...] reviewed this study and agree with theabove report.[facility] with [id number] 20:57:54 Test Item Value Reference Range Interpretation [...] RDW-SD (test code = 42.4 fL 39.0-49.9 90149-6) RDW-CV (test code = 12.2 % 12.0-15.5 788-0) PLT (test code = See_Comment [Automated 777-3) message] The sy stem which generated this result transmitted reference range : 166 - 358 10*3/ ?L. The reference r kanika was not used to interpret this result as normal/abnormal . MPV (test code = 8.9 fL 9.5-12.9 L 00946-4) NRBC/100 WBC (test See_Comment [Automat ed code = 6622080818) message] The system which generated this result transmitted reference range : 0.0 - 10.0 /100 WBCs. The refer ence range was not u sed to interpret th is result as normal/abnormal . NRBC x10^3 (test code <0.01 See_Comment [Auto mated = 6378126056) message] The s ystem which generated this result transmitted reference range : 10*3/?L. The reference range was not used to interpret this result as normal/abnormal . GRAN MAT (NEUT) % 68.9 % (test code = 770-8) IMM GRAN % (test code 0.50 % = 3236431391) LYMPH % (test code = 22.0 % 736-9) MONO % (test code = 5.7 % 5905-5) EOS % (test code = 2.6 % 713-8) BASO % (test code = 0.3 % 706-2) GRAN MAT x10^3(ANC) 4.49 10*3/uL 1.88-7.09 (test code = 8626824024) IMM GRAN x10^3 (test 0.03 10*3/uL 0.00-0.06 code = 4960545850) LYMPH x10^3 (test code 1.43 10*3/uL 1.32-3.29 = 731-0) MONO x10^3 (test code 0.37 10*3/uL 0.33-0.92 = 742-7) EOS x10^3 (test code = 0.17 10*3/uL 0.03-0.39 711-2) BASO x10^3 (test code <0.03 0.01-0.07 = 704-7) Lab Interpretation Abnormal (test code = 04121-7) [facility] ABD PELVIS [id number] 20:28:00 FAX: Mari Parry,Ebonie Suarez MD [place]: YANI St: REG Name: RENEE TAMAYO [facility] : 1980 Age/S: 40/F [address] [facility]: [id number] Loc: E.ERS2 [place], [place]: [place] [id number] Acct: [id number] Dis Date: Status: REG ER PHONE #: [phone] Exam Date: 04/11/20202012 FAX #: [phone] Reason: PAIN EXAMS: CPT CODE: [id number] CT ABD PELVIS W/CONT 77660 LOCATION: T18 EXAM: CT ABDOMEN AND PELVIS WITH CONTRAST INDICATION: Abdominal pain, lower abdominal pain COMPARISON: None. TECHNIQUE: Multiple CT images of the abdomen and pelvis were obtained with reconstructions in the coronal and sagittal planes. 100 ml of Isovue 300 was given intravenously. Up-to-date CT equipment and radiation dose reduction techniques were utilized. Automatic exposure control was utilized. FINDINGS: Lungbases are clear. Fatty infiltration throughout the liver noted. Spleen, adrenal glands and pancreas normal. Gallbladder is unremarkable. No biliary distention. Portal vasculature is patent. Kidneys enhance symmetrically. No focal abnormality or hydronephrosis is seen. There is no hydroureter. Urinarybladder appearance. Uterus and adnexal structures are age-appropriate in appearance. The appendix isnormal. There is no evidence for acute appendicitis. [...] (2031 PAGE 1 Signed Report COMPREHENSIVE METABOLIC [id number] 18:37:00 Test Item Value Reference Range Interpretation [...] 90 Units/L 50.0-136.0 N code = ALKP) [id number] 18:37:00 Test Item Value Reference Range Interpretation Comments LIPASE (test code = LIP) 140 Units/L 65.0-230.0 N [id number] 18:37:00 Test Item Value Reference Range Interpretation Comments ALCOHOL (test code 0.00 gm/dL 0.00-0.00 N ETHYL ALC OHOL VALUES - = ALC) INTERPRETATION: 0.050 GM/DL - NOT INT OXICATED 0.100 GM/DL - INTOXICATED 0.3 50-0.450 GM/DL - SEVEREL Y INTOXICATED 0.5 50 GM/DL- FATAL INTOXICAT ION DRUGS OF ABUSE SCREEN [id number] 18:33:00 Test Item Value Reference Range Interpretation [...] (test NEGATIVE NEGATIVE code = [place]) URINALYSIS [id number] 18:32:00 Test Item Value Reference Range Interpretation [...] code = TRACE NONE BACU) UR HCG [id number] 18:32:00 Test Item Value Reference Range Interpretation Comments UR HCG QUAL (test code = HCGQLU) NEGATIVE NEGATIVE URINALYSIS [id number] 18:31:00 Test Item Value Reference Range Interpretation [...] (test code = NONE BACU) UR HCG [id number] 18:31:00 Test Item Value Reference Range Interpretation Comments UR HCG QUAL (test code = HCGQLU) NEGATIVE COMPREHENSIVE METABOLIC [id number] 18:27:00 Test Item Value Reference Range Interpretation [...] TOTAL (test Units/L 50.0-136.0 code = ALKP) [id number] 18:27:00 Test Item Value Reference Range Interpretation Comments LIPASE (test code = LIP) Units/L 65.0-230.0 [id number] 18:27:00 Test Item Value Reference Range Interpretation Comments ALCOHOL (test code = ALC) gm/dL 0.00-0.00 CBC W/AUTO [id number] 18:16:00 Test Item Value Reference Range Interpretation [...]
[2023-01-13] MEDS ORDERED: ALBUTEROL 2.5 MG/3 ML NEB SOL ONE (16:01)
[2023-01-13] MEDS ORDERED: IPRATROPIUM BROM 0.5MG/2.5ML ONE (16:01)
[2023-01-13] MEDS ORDERED: predniSONE 20 MG TAB ONE (16:21)
[2023-01-13 16:42] LABS: Albumin 3.4 g/dL (3.4-5.0); Bilirubin Total 0.3 mg/dL (0.2-1.0); Potassium 3.4 mEq/L (3.5-5.1); Protein, Total 7.2 g/dL (6.4-8.2); Troponin High Sensitivity 3.4 pg/mL (<58.9)
--- NOTE | 2023-01-13 16:47 | RAD REPORT ---
EXAM DESCRIPTION: RAD - Chest Single View - 01/13/2023 4:40 pm CLINICAL HISTORY: DYSPNEA Chest pain. COMPARISON: Chest Pa And Lat (2 Views) dated 07/22/2022; Chest Single View dated 10/08/2021; Chest Sin gle View dated 09/14/2020; Chest Single View dated 08/30/2020 FINDINGS: Portable technique limits examination quality. The lungs are grossly clear. The heart is normal in size. No displaced fractures. Hardware proximal l eft humerus. IMPRESSION: No acute intrathoracic process suspected.
[2023-01-13 16:49] LABS: Absolute Lymphocytes (CBC) 1.2 K/uL (0.7-4.9); Hematocrit 38.3 % (36.0-45.0); Lymphocytes % 19.9 % (15.3-44.8); MCV 92.4 fL (80-100); MPV 6.6 fL (7.6-11.3); RBC Red Blood Cell Count 4.15 M/uL (3.86-4.86)
--- NOTE | 2023-01-13 16:59 | EDPHYS ---
Physician Documentation [facility] Name: Susana Tamayo Age: 42 yrs Sex: Female : 1980 Arrival Date: 01/13/2023 Time: 14:39 Bed 7 Private MD: ED Physician Ruy Cervantes HPI: 01/13 16:28 This 42 yrs old Female presents to ER via Ambulatory with complaints of Chest Pain, rt Breathing Difficulty. 16:28 Patient with history of asthma presents to the ED with cough, wheezing, dyspnea, rt pleuritic chest pain for about 2 days. She has been using her inhaler which she states is not adequate improving her symptoms. Patient states that she believes this may be due to allergens due to cats. She denies fever, chills, acute complaints at this time. Symptoms are moderate in severity, no other aggravating or alleviating factors.. Historical: - Allergies: 15:17 Darvocet-N 100; hb - Home Meds: 15:17 albuterol sulfate 90 mcg/actuation Inhl aebs 1 puff every 4-6 hours [Active]; hb - PMHx: 15:17 Anxiety; Asthma; Depression; GERD; Migraines; hb - PSHx: 15:17 shoulder surgery; Ligation of fallopian tube; hb - Immunization history:: Adult Immunizations up to date. - Social history:: Smoking status: Patient reports the use of cigarette tobacco products, smokes one-half pack cigarettes per day. - Family history:: not pertinent. ROS: 16:28 Constitutional: Negative for fever, chills, and weight loss, Abdomen/GI: Negative for rt abdominal pain, nausea, vomiting, diarrhea, and constipation, MS/Extremity: Negative for injury and deformity, Skin: Negative for injury, rash, and discoloration, Neuro: Negative for headache, weakness, numbness, tingling, and seizure, Psych: Negative for depression, anxiety, suicide ideation, homicidal ideation, and hallucinations. 16:28 Cardiovascular: Positive for chest pain, Negative for edema. 16:28 Respiratory: Positive for cough, shortness of breath, wheezing. Exam: 16:28 Constitutional: This is a well developed, well nourished patient who is awake, alert, rt and in no acute distress. Head/Face: Normocephalic, atraumatic. Neck: Trachea midline, no thyromegaly or masses palpated, and no cervical lymphadenopathy. Supple, full range of motion without nuchal rigidity, or vertebral point tenderness. No Meningismus. Chest/axilla: Normal chest wall appearance and motion. Nontender with no deformity. No lesions are appreciated. Cardiovascular: Regular rate and rhythm with a normal S1 and S2. No gallops, murmurs, or rubs. Normal PMI, no JVD. No pulse deficits. Abdomen/GI: Soft, non-tender, with normal bowel sounds. No distension or tympany. No guarding or rebound. No evidence of tenderness throughout. Skin: Warm, dry with normal turgor. Normal color with no rashes, no lesions, and no evidence of cellulitis. MS/ Extremity: Pulses equal, no cyanosis. Neurovascular intact. Full, normal range of motion. Neuro: Awake and alert, GCS 15, oriented to person, place, time, and situation. Cranial nerves II-XII grossly intact. Motor strength 5/5 in all extremities. Sensory grossly intact. Cerebellar exam normal. Normal gait. Psych: Awake, alert, with orientation to person, place and time. Behavior, mood, and affect are within normal limits. 16:28 ECG was reviewed by the Attending Physician. 16:28 Respiratory: This is heard on all lung michael, no respiratory distress. Vital Signs: 15:15 BP 143 / 95; Pulse 96; Resp 24; Temp 98.5(O); Pulse Ox 97% on R/A; Weight 81.65 kg; hb Height 5 ft. 9 in. ; Pain 9/10; 16:00 BP 128 / 74; Pulse 98; Resp 18; Pulse Ox 97% on R/A; ko1 15:15 Body Mass Index 26.58 (81.65 kg, 175.26 cm) hb 15:15 Pain Scale: Adult hb MDM: 15:36 Patient medically screened. rt 17:03 Differential diagnosis: Pneumonia, pneumothorax, asthma, COPD, congestive heart rt failure. HEART Score: History: Slightly Suspicious (0), ECG: Normal (0), Age: < or = 45 years (0), Risk Factors: 1 or 2 risk factors (1), Troponin: < or = 1 x Normal Limit (0), Total Score = 1. Data reviewed: vital signs, nurses notes, lab test result(s), EKG, radiologic studies. I considered the following discharge prescriptions or medication management in the emergency department Medications were administered in the Emergency Department. See MAR. Independent interpretation of the following test(s) in the Emergency Department X-Ray: My interpretation is hyperinflated lungs without consolidation seen on my interpretation of the chest x-ray images. Test considered but Not performed: CT: Low suspicion for pulmonary embolism, CT angiogram not indicated. Care significantly affected by the following chronic conditions: Asthma. Counseling: I had a detailed discussion with the patient and/or guardian regarding: the historical points, exam findings, and any diagnostic results supporting the discharge/admit diagnosis, lab results, radiology results, the need for outpatient follow up. Response to treatment: the patient's symptoms have markedly improved after treatment. 01/13 15:39 Order name: CBC with Diff; Complete Time: 16:52 rt 01/13 15:39 Order name: CMP; Complete Time: 16:49 rt 01/13 15:39 Order name: Troponin High Sensitivity; Complete Time: 16:49 rt 01/13 15:39 Order name: BNP; Complete Time: 16:49 rt 01/13 15:39 Order name: Chest Single View XRAY; Complete Time: 16:49 rt 01/13 15:39 Order name: EKG; Complete Time: 15:40 rt 01/13 15:39 Order name: EKG - Nurse/Tech; Complete Time: 16:15 rt 01/13 16:25 Order name: Labs - recollect needed: recollect cbc/ hemolyzed; Complete Time: 16:43 eb EC:28 Rate is 96 beats/min. Rhythm is regular, Normal Sinus Rhythm with No ectopy. QRS [place] rt is Normal. LA interval is normal. QRS interval is normal. QT interval is normal. No Q waves. T waves are Normal. No ST changes noted. Interpreted by me. Administered Medications: 16:13 Drug: DuoNeb Nebulize (3:1) (2.5 mg - 0.5 mg) 3 ml Route: Nebulizer; ko1 16:16 Drug: predniSONE PO 40 mg Route: PO; bp Disposition Summary: 01/13/23 16:59 Discharge Ordered Location: Home rt Problem: an acute exacerbation rt Symptoms: have improved rt Condition: Stable rt Diagnosis - Unspecified asthma, uncomplicated rt Followup: rt - With: Private Physician - When: 2 - 3 days - Reason: Discharge Instructions: - Discharge Summary Sheet rt - Asthma, Adult rt Forms: - Medication Reconciliation Form rt - Thank You Letter rt - Antibiotic Education rt - Prescription Opioid Use rt Prescriptions: - albuterol sulfate 90 mcg/actuation Inhalation HFA Aerosol Inhaler - inhale 2 puff by INHALATION route every 2 hours as needed for bronchospasm; rt administer via ventilator; 2 Each; Refills: 0, Product Selection Permitted - Prednisone 20 mg Oral Tablet - take 2 tablets by ORAL route once daily for 4 days; 8 tablet; Refills: 0, rt Product Selection Permitted Signatures: Dispatcher [employer] EDZahida Teague RN RN hb Peltier, Brian RN RN Tahmina Duarte Kathy, RN RN ko1 Ruy Cervantes MD MD rt
--- NOTE | 2023-01-13 16:59 | ER ---
Nurse's Notes [facility] Name: Susana Tamayo Age: 42 yrs Sex: Female : 1980 Arrival Date: 01/13/2023 Time: 14:39 Bed 7 Private MD: Diagnosis: Unspecified asthma, uncomplicated Presentation: 01/13 15:15 Chief complaint: SOB and intermittent sharp left sided chest pain x 2 days. Coronavirus hb screen: Client presents with at least one sign or symptom that may indicate coronavirus-19. Provider contacted for isolation considerations. Ebola Screen: No symptoms or risks identified at this time. Initial Sepsis Screen: Does the patient meet any 2 criteria? RR > 20 per min. HR > 90 bpm. Yes Does the patient have a suspected source of infection? No. Patient's initial sepsis screen is negative. Risk Assessment: Do you want to hurt yourself or someone else? Patient reports no desire to harm self or others. Onset of symptoms was January 11, 2023. 15:15 Method Of Arrival: Ambulatory hb 15:15 Acuity: DIMPLE 3 hb Historical: - Allergies: 15:17 Darvocet-N 100; hb - Home Meds: 15:17 albuterol sulfate 90 mcg/actuation Inhl aebs 1 puff every 4-6 hours [Active]; hb - PMHx: 15:17 Anxiety; Asthma; Depression; GERD; Migraines; hb - PSHx: 15:17 shoulder surgery; Ligation of fallopian tube; hb - Immunization history:: Adult Immunizations up to date. - Social history:: Smoking status: Patient reports the use of cigarette tobacco products, smokes one-half pack cigarettes per day. - Family history:: not pertinent. Screenin:[address] [facility] ED Fall Risk Assessment (Adult) History of falling in the last 3 months, ko1 including since admission No falls in past 3 months (0 pts) Confusion or Disorientation No (0 pts) Intoxicated or Sedated No (0 pts) Impaired Gait No (0 pts) Mobility Assist Device Used No (0 pt) Altered Elimination No (0 pt) Score/Fall Risk Level 0 - 2 = Low Risk Oriented to surroundings, Maintained a safe environment, Educated pt \T\ family on fall prevention, incl call for assistance when getting out of bed, Assessed \T\ reinforced patient's understanding of fall precautions, Provided non-skid footwear, Hourly rounding (assess needs \T\ fall precautionary measures) done, Used ambulatory aids as needed (educated on \T\ assisted with), Used gait belt as appropriate. Abuse screen: Denies threats or abuse. Denies injuries from another. Nutritional screening: No deficits noted. Tuberculosis screening: No symptoms or risk factors identified. Assessment: 16:00 General: Appears in no apparent distress. comfortable, Behavior is calm, cooperative, ko1 appropriate for age. Pain: Complains of pain in chest Pain does not radiate. Pain began 3 hours ago. Neuro: No deficits noted. Cardiovascular: Reports chest pain. Respiratory: Reports pain with cough. GI: No deficits noted. : No deficits noted. EENT: No deficits noted. Derm: No deficits noted. Musculoskeletal: No deficits noted. Vital Signs: 15:15 BP 143 / 95; Pulse 96; Resp 24; Temp 98.5(O); Pulse Ox 97% on R/A; Weight 81.65 kg; hb Height 5 ft. 9 in. ; Pain 9/10; 16:00 BP 128 / 74; Pulse 98; Resp 18; Pulse Ox 97% on R/A; ko1 15:15 Body Mass Index 26.58 (81.65 kg, 175.26 cm) hb 15:15 Pain Scale: Adult hb ED Course: 14:42 Patient arrived in ED. mr 14:42 Ruy Cervantes MD is Attending Physician. rt 15:17 Triage completed. hb 15:17 Arm band placed on. hb 15:21 Sanjay Day, RN is Primary Nurse. bp 16:00 Patient has correct armband on for positive identification. Bed in low position. Call ko1 light in reach. Pulse ox on. NIBP on. 16:00 No provider procedures requiring assistance completed. Patient did not have IV access ko1 during this emergency room visit. Patient maintains SpO2 saturation greater than 95% on room air. 16:41 Chest Single View XRAY In Process Unspecified. EDMS Administered Medications: 16:13 Drug: DuoNeb Nebulize (3:1) (2.5 mg - 0.5 mg) 3 ml Route: Nebulizer; ko1 16:16 Drug: predniSONE PO 40 mg Route: PO; bp Medication: 16:00 VIS not applicable for this client. ko1 Outcome: 16:59 Discharge ordered by . rt 17:00 Discharged to home ambulatory. ko1 17:00 Condition: stable 17:00 Discharge instructions given to patient, Instructed on discharge instructions, follow up and referral plans. medication usage, Demonstrated understanding of instructions, follow-up care, medications, Prescriptions given X 2. 17:07 Patient left the ED. ko1 Signatures: Dispatcher [employer] EDIN Cortez Sosa mr Zahida Ledezma RN RN hb Peltier, Brian, RN RN Taylor Jay RN RN ko1 Ruy Cervantes MD MD rt
[2023-01-13 17:18] VITALS: TEMP 98.5; O2SAT 97
[2023-01-13 17:19] VITALS: BP 128/74
--- NOTE | 2023-01-15 14:46 | EKG ---
Test Date: 2023-01-13 Test Time: 16:16:14 Drier Tender Naphthalene: AMEYA MEASUREMENT RESULTS: Intervals: Rate: 96 [place]: 136 QRSD: 86 QT: 356 QTc: 449 [place]: P: 76 [place]: 136 QRS: 88 T: 79 INTERPRETIVE STATEMENTS: Normal sinus rhythm Normal ECG Compared to ECG 10/08/2021 15:47:27 No significant changes Electronically Signed On 01-15-23 14:43:54 CDT by Javad Martinez
== END 2023-01-13 17:07 | disposition home or self-care (01) ==
LOC: ER 14:39
DX: J45.909 Unspecified asthma, uncomplicated (principal); F17.210 Nicotine dependence, cigarettes, uncomplicated
CPT/HCPCS: 36415; 71045; 80053; 83880; 84484; 85025; 93005; 94640; 99285; J7512; J7613; J7644

== ENCOUNTER → 2023-08-24 | Emergency (ER) | payer SELFPAY ==
[~2023-08-24] MED LIST: MORPHINE 4 MG/ML SYR ONE; ONDANSETRON 4 MG/2 ML VIAL ONE
--- OUTSIDE RECORDS SUMMARY | 2023-08-24 13:16 | XMS REPORT | Continuity of Care Document ---
Author Name Unknown Address [address] [place] [address] [facility] Address [address] [place] [address] Care Team Providers Care Area Field Worker Name Role Phone PCP, PATIENT DOES NOT HAVE A Primary Care Physic kaitlyn Unavailable JONATHAN SOMERS Attending Clinician Unavailable Jonathan Somers DO Attending Clinician [phone] Sidra Suh DO Attending Clinician [phone] Danielle Montaño Attending Clinician [phone] Doctor Unassigned, [place] Attending Clinician [facility], [facility] Attending Clinician Unavailable Darrell Francois MD Attending Clinician [phone] DARRELL FRANCOIS Attending Clinician Unavailable Mary Beth Cisneros Attending Clinician [phone] Geno Harris Attending Clinician [phone] Huang Goyal Attending Clinician [phone] HUANG GARG Attending Clinician Unavailable JONATHAN SOMERS Admitting Clinician Unavailable HUANG GARG Admitting Clinician Unavailable Problems Condition Name Condition Details Condition Category Status Onset Date Resolution Date Last Treatment Date Treating Clinician Comments Source 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 Disease Recurre nce 7-20 00:00: 00 [facility] Allergies, Adverse Reactions, Alerts Allergy Name Allergy Type Status Severity Reaction(s) Onset Date Inactive Date Treating Clinician Comments Source PROPOXYP HENE N-ACETAM INOPHEN DRUG Active N/V 10-12 00:00: 00 [facility] Propoxyp hene N-Acetam inophen Propensi ty to adverse reaction s Active Nausea and/or Vomiting 10-12 00:00: 00 [facility] Social History Social Habit Start Date Stop Date Quantity Comments Source History of tobacco use Cigarette Smoker [facility] Exposure to SARS-CoV-2 (event) 2022-06-17 00:00:00 2022-06-27 15:28:00 Not sure [facility] Alcohol intake 2022-06-27 00:00:00 2022-06-27 00:00:00 [facility] Cigarettes smoked current (pack per day) - Reported 2017-10-12 00:00:00 2017-10-12 00:00:00 [facility] Cigarette pack-years 2017-10-12 00:00:00 2017-10-12 00:00:00 [facility] Tobacco use and exposure 2017-10-12 00:00:00 2017-10-12 00:00:00 Smokeless tobacco non-user [facility] Sex Assigned At 1980 00:00:00 1980 00:00:00 [facility] Smoking Status Start Date Stop Date Source Smokes tobacco daily 2017-10-12 00:00:00 [facility] Medications Ordered Medication Name Filled Medication Name Start Date Stop Date Current Medication? Ordering Clinician Indication Dosage Frequency Signature (SIG) Comments Components Source HYDROcodone -acetaminop hen (NORCO) 10-325 mg tablet 1 tablet 2021-09 0 00:15: 00 06-27 23:24 :00 No 1{tbl} 1 tablet, Oral, ONCE, 1 dose, On Mon06/27/22 at 1915, Routine [facility] casirivimab -imdevimab (REGEN-COV (EUA)) 1,200 mg in NaCl 0.9% (NS) 60 mL IV infusion 04-22 19:30: 00 04-22 19:24 :00 No [id number] 1200[facility] casirivimab -imdevimab (REGEN-COV (EUA)) 1,200 mg in NaCl 0.9% (NS) 60 mL IV infusion 04-22 19:30: 00 04-22 19:24 :00 No [id number] 1200mg 1,200 mg, IV Infusion, ONCE, Administer over 20 Minutes, Karina 04/22/21 at 1430, For 1 dose
Ad distribution analyst as an IV infusion via pump or gravity over at least 60 minutes through an intravenou s line containing a sterile, in-line or add-on 0.2-micron polyethers ulfone (PES) filter.&nb sp;Stable 36 hours refrigerat ed; 4 hours at room temperatur e. &nbs p;
[facility] ondansetron (ZOFRAN-ODT ) disintegrat ing tablet 4 mg 04-16 17:30: 00 04-16 16:34 :00 No 4mg 4 mg, Oral, ONCE, 1 dose, Mon04/16/21 at 1230, Routine [facility] dexamethaso ne (DECADRON PHOSPHATE) injection 10 mg 04-16 17:30: 00 04-16 16:38 :00 No 10mg 10 mg, Intramuscu lar, ONCE, 1 dose, Mon04/16/21 at 1230, STAT [facility] ketorolac (TORADOL) injection 60 mg 04-16 17:30: 00 04-16 16:37 :00 No 60mg 60 mg, Intramuscu lar, ONCE, 1 dose, Mon04/16/21 at 1230, SHEBA
Fa culty member approving Restricted medication : EMERGENCY ROOM, [facility] ondansetron (ZOFRAN ODT) 4 mg disintegrat ing tablet 04-16 00:00: 00 Yes [id number] 4mg Take 1 tablet by mouth every 8 (eight) hours as needed for Nausea and Vomiting (N/V). [facility] bromphenira mine-pseudo ephedrine-D M (BROMFED DM) 2-30-10 mg/5 mL syrup 0 8 00:00: 00 Yes [id number] 5mL Take 5 mL by mouth 4 (four) times daily as needed for Congestion /Allergies . [facility] ondansetron (ZOFRAN ODT) 4 mg disintegrat ing tablet 04-16 00:00: 00 Yes [id number] 4mg Take 1 tablet by mouth every 8 (eight) hours as needed for Nausea and Vomiting (N/V). [facility] bromphenira mine-pseudo ephedrine-D M (BROMFED DM) 2-30-10 mg/5 mL syrup 04-16 00:00: 00 Yes [id number] 5mL Take 5 mL by mouth 4 (four) times daily as needed for Congestion /Allergies . [facility] ondansetron (ZOFRAN ODT) 4 mg disintegrat ing tablet 04-16 00:00: 00 Yes [id number] 4mg Take 1 tablet by mouth every 8 (eight) hours as needed for Nausea and Vomiting (N/V). [facility] bromphenira mine-pseudo ephedrine-D M (BROMFED DM) 2-30-10 mg/5 mL syrup 04-16 00:00: 00 Yes [id number] 5mL Take 5 mL by mouth 4 (four) times daily as needed for Congestion /Allergies . [facility] ondansetron (ZOFRAN ODT) 4 mg disintegrat ing tablet 04-16 00:00: 00 Yes [id number] 4mg Take 1 tablet by mouth every 8 (eight) hours as needed for Nausea and Vomiting (N/V). [facility] bromphenira mine-pseudo ephedrine-D M (BROMFED DM) 2-30-10 mg/5 mL syrup 0 8- 00:00: 00 Yes [id number] 5mL Take 5 mL by mouth 4 (four) times daily as needed for Congestion /Allergies . [facility] ondansetron (ZOFRAN ODT) 4 mg disintegrat ing tablet 04-16 00:00: 00 Yes [id number] 4mg Take 1 tablet by mouth every 8 (eight) hours as needed for Nausea and Vomiting (N/V). [facility] bromphenira mine-pseudo ephedrine-D M (BROMFED DM) 2-30-10 mg/5 mL syrup 04-16 00:00: 00 Yes [id number] 5mL Take 5 mL by mouth 4 (four) times daily as needed for Congestion /Allergies . [facility] ondansetron (ZOFRAN ODT) 4 mg disintegrat ing tablet 04-16 00:00: 00 Yes [id number] 4mg Take 1 tablet by mouth every 8 (eight) hours as needed for Nausea and Vomiting (N/V). [facility] bromphenira mine-pseudo ephedrine-D M (BROMFED DM) 2-30-10 mg/5 mL syrup 04-16 00:00: 00 Yes [id number] 5mL Take 5 mL by mouth 4 (four) times daily as needed for Congestion /Allergies . [facility] ondansetron (ZOFRAN ODT) 4 mg disintegrat ing tablet 04-16 00:00: 00 Yes [id number] 4mg Take 1 tablet by mouth every 8 (eight) hours as needed for Nausea and Vomiting (N/V). [facility] bromphenira mine-pseudo ephedrine-D M (BROMFED DM) 2-30-10 mg/5 mL syrup 04-16 00:00: 00 Yes [id number] 5mL Take 5 mL by mouth 4 (four) times daily as needed for Congestion /Allergies . [facility] predniSONE 20 mg tablet 04-16 00:00: 00 04-22 04:59 :00 No [id number] 40mg Take 2 tablets by mouth daily for 5 days. [facility] dexamethaso ne (DECADRON PHOSPHATE) injection 10 mg 12-29 01:15: 00 12-29 01:15 :00 No 10mg 10 mg, Intramuscu lar, ONCE, 1 dose, Mon12/28/20 at 2015, STAT [facility] ketorolac (TORADOL) injection 30 mg 12-29 01:15: 00 12-29 00:22 :00 No 30mg 30 mg, Intramuscu lar, ONCE, 1 dose, Mon12/28/20 at 2015, [facility] : GENO VILLALOBOS [facility] ibuprofen 600 mg tablet 12-28 00:00: 00 Yes [id number] 600mg Take 1 tablet by mouth every 6 (six) hours as needed for Pain (scale 4-6). [facility] ibuprofen 600 mg tablet 12-28 00:00: 00 Yes [id number] 600mg Take 1 tablet by mouth every 6 (six) hours as needed for Pain (scale 4-6). [facility] ibuprofen 600 mg tablet 12-28 00:00: 00 Yes [id number] 600mg Take 1 tablet by mouth every 6 (six) hours as needed for Pain (scale 4-6). [facility] ibuprofen 600 mg tablet 12-28 00:00: 00 Yes [id number] 600mg Take 1 tablet by mouth every 6 (six) hours as needed for Pain (scale 4-6). [facility] ibuprofen 600 mg tablet 12-28 00:00: 00 Yes [id number] 600mg Take 1 tablet by mouth every 6 (six) hours as needed for Pain (scale 4-6). [facility] ibuprofen 600 mg tablet 12-28 00:00: 00 Yes [id number] 600mg Take 1 tablet by mouth every 6 (six) hours as needed for Pain (scale 4-6). [facility] ibuprofen 600 mg tablet 12-28 00:00: 00 Yes [id number] 600mg Take 1 tablet by mouth every 6 (six) hours as needed for Pain (scale 4-6). [facility] ibuprofen 600 mg tablet 12-28 00:00: 00 Yes [id number] 600mg Take 1 tablet by mouth every 6 (six) hours as needed for Pain (scale 4-6). [facility] cephALEXin 500 mg capsule 12-28 00:00: 00 01-05 04:59 :00 No [id number] 500mg Take 1 capsule by mouth 4 (four) times daily for 7 days. [facility] KCL (KLOR-CON M20) tablet 40 mEq 11-25 23:00: 00 11-25 22:04 :00 No 40meq 40 mEq, Oral, ONCE, 1 dose, Mon11/25/20 at 1800, SHEBA [facility] aspirin tablet 325 mg 11-25 21:30: 00 11-25 20:34 :00 No 325mg 325 mg, Oral, ONCE, 1 dose, Mon11/25/20 at 1630, STAT [facility] albuterol (PROAIR HFA) 90 mcg/actuati on inhaler 10-12 14:52: 08 Yes 2{puff} Inhale 2 Puffs every 6 (six) hours as needed. [facility] ibuprofen (MOTRIN) 800 mg tablet 10-12 14:52: 08 Yes 800mg Take 800 mg by mouth every 6 (six) hours as needed. [facility] albuterol (PROAIR HFA) 90 mcg/actuati on inhaler 10-12 14:52: 08 Yes 2{puff} Inhale 2 Puffs every 6 (six) hours as needed. [facility] ibuprofen (MOTRIN) 800 mg tablet 10-12 14:52: 08 Yes 800mg Take 800 mg by mouth every 6 (six) hours as needed. [facility] albuterol (PROAIR HFA) 90 mcg/actuati on inhaler 10-12 14:52: 08 Yes 2{puff} Inhale 2 Puffs every 6 (six) hours as needed. [facility] ibuprofen (MOTRIN) 800 mg tablet 10-12 14:52: 08 Yes 800mg Take 800 mg by mouth every 6 (six) hours as needed. [facility] albuterol (PROAIR HFA) 90 mcg/actuati on inhaler 10-12 14:52: 08 Yes 2{puff} Inhale 2 Puffs every 6 (six) hours as needed. [facility] ibuprofen (MOTRIN) 800 mg tablet 10-12 14:52: 08 Yes 800mg Take 800 mg by mouth every 6 (six) hours as needed. [facility] albuterol (PROAIR HFA) 90 mcg/actuati on inhaler 10-12 14:52: 08 Yes 2{puff} Inhale 2 Puffs every 6 (six) hours as needed. [facility] ibuprofen (MOTRIN) 800 mg tablet 10-12 14:52: 08 Yes 800mg Take 800 mg by mouth every 6 (six) hours as needed. [facility] albuterol (PROAIR HFA) 90 mcg/actuati on inhaler 10-12 14:52: 08 Yes 2{puff} Inhale 2 Puffs every 6 (six) hours as needed. [facility] ibuprofen (MOTRIN) 800 mg tablet 10-12 14:52: 08 Yes 800mg Take 800 mg by mouth every 6 (six) hours as needed. [facility] albuterol (PROAIR HFA) 90 mcg/actuati on inhaler 10-12 14:52: 08 Yes 2{puff} Inhale 2 Puffs every 6 (six) hours as needed. [facility] ibuprofen (MOTRIN) 800 mg tablet 10-12 14:52: 08 Yes 800mg Take 800 mg by mouth every 6 (six) hours as needed. [facility] albuterol (PROAIR HFA) 90 mcg/actuati on inhaler 10-12 14:52: 08 Yes 2{puff} Inhale 2 Puffs every 6 (six) hours as needed. [facility] ibuprofen (MOTRIN) 800 mg tablet 10-12 14:52: 08 Yes 800mg Take 800 mg by mouth every 6 (six) hours as needed. [facility] albuterol (PROAIR HFA) 90 mcg/actuati on inhaler 10-12 08:52: 08 Yes 2{puff} Inhale 2 Puffs every 6 (six) hours as needed. [facility] ibuprofen (MOTRIN) 800 mg tablet 10-12 08:52: 08 Yes 800mg Take 800 mg by mouth every 6 (six) hours as needed. [facility] traMADOL 50 mg tablet 10-12 00:00: 00 Yes 50mg Take 1 tablet by mouth every 6 (six) hours as needed for Pain (scale 4-6). [facility] ciprofloxac in HCl 500 mg tablet 10-12 00:00: 00 Yes 500mg Take 1 tablet by mouth 2 (two) times daily. [facility] metroNIDAZO LE 500 mg tablet 10-12 00:00: 00 Yes 500mg Take 1 tablet by mouth 2 (two) times daily. [facility] diphenoxyla te-atropine (LOMOTIL) 2.5-0.025 mg per tablet 10-12 00:00: 00 Yes 1{tbl} Take 1 tablet by mouth every 6 (six) hours as needed (t). [facility] traMADOL 50 mg tablet 10-12 00:00: 00 Yes 50mg Take 1 tablet by mouth every 6 (six) hours as needed for Pain (scale 4-6). [facility] ciprofloxac in HCl 500 mg tablet 10-12 00:00: 00 Yes 500mg Take 1 tablet by mouth 2 (two) times daily. [facility] metroNIDAZO LE 500 mg tablet 10-12 00:00: 00 Yes 500mg Take 1 tablet by mouth 2 (two) times daily. [facility] diphenoxyla te-atropine (LOMOTIL) 2.5-0.025 mg per tablet 10-12 00:00: 00 Yes 1{tbl} Take 1 tablet by mouth every 6 (six) hours as needed (t). [facility] traMADOL 50 mg tablet 2 00:00: 00 Yes 50mg Take 1 tablet by mouth every 6 (six) hours as needed for Pain (scale 4-6). [facility] ciprofloxac in HCl 500 mg tablet 10-12 00:00: 00 Yes 500mg Take 1 tablet by mouth 2 (two) times daily. [facility] metroNIDAZO LE 500 mg tablet 10-12 00:00: 00 Yes 500mg Take 1 tablet by mouth 2 (two) times daily. [facility] diphenoxyla te-atropine (LOMOTIL) 2.5-0.025 mg per tablet 10-12 00:00: 00 Yes 1{tbl} Take 1 tablet by mouth every 6 (six) hours as needed (t). [facility] traMADOL 50 mg tablet 10-12 00:00: 00 Yes 50mg Take 1 tablet by mouth every 6 (six) hours as needed for Pain (scale 4-6). [facility] ciprofloxac in HCl 500 mg tablet 10-12 00:00: 00 Yes 500mg Take 1 tablet by mouth 2 (two) times daily. [facility] metroNIDAZO LE 500 mg tablet 10-12 00:00: 00 Yes 500mg Take 1 tablet by mouth 2 (two) times daily. [facility] diphenoxyla te-atropine (LOMOTIL) 2.5-0.025 mg per tablet 10-12 00:00: 00 Yes 1{tbl} Take 1 tablet by mouth every 6 (six) hours as needed (t). [facility] traMADOL 50 mg tablet 2 00:00: 00 Yes 50mg Take 1 tablet by mouth every 6 (six) hours as needed for Pain (scale 4-6). [facility] ciprofloxac in HCl 500 mg tablet 2 00:00: 00 Yes 500mg Take 1 tablet by mouth 2 (two) times daily. [facility] metroNIDAZO LE 500 mg tablet 10-12 00:00: 00 Yes 500mg Take 1 tablet by mouth 2 (two) times daily. [facility] diphenoxyla te-atropine (LOMOTIL) 2.5-0.025 mg per tablet 10-12 00:00: 00 Yes 1{tbl} Take 1 tablet by mouth every 6 (six) hours as needed (t). [facility] traMADOL 50 mg tablet 10-12 00:00: 00 Yes 50mg Take 1 tablet by mouth every 6 (six) hours as needed for Pain (scale 4-6). [facility] ciprofloxac in HCl 500 mg tablet 10-12 00:00: 00 Yes 500mg Take 1 tablet by mouth 2 (two) times daily. [facility] metroNIDAZO LE 500 mg tablet 10-12 00:00: 00 Yes 500mg Take 1 tablet by mouth 2 (two) times daily. [facility] diphenoxyla te-atropine (LOMOTIL) 2.5-0.025 mg per tablet 10-12 00:00: 00 Yes 1{tbl} Take 1 tablet by mouth every 6 (six) hours as needed (t). [facility] traMADOL 50 mg tablet 10-12 00:00: 00 Yes 50mg Take 1 tablet by mouth every 6 (six) hours as needed for Pain (scale 4-6). [facility] ciprofloxac in HCl 500 mg tablet 10-12 00:00: 00 Yes 500mg Take 1 tablet by mouth 2 (two) times daily. [facility] metroNIDAZO LE 500 mg tablet 10-12 00:00: 00 Yes 500mg Take 1 tablet by mouth 2 (two) times daily. [facility] diphenoxyla te-atropine (LOMOTIL) 2.5-0.025 mg per tablet 10-12 00:00: 00 Yes 1{tbl} Take 1 tablet by mouth every 6 (six) hours as needed (t). [facility] traMADOL 50 mg tablet 10-12 00:00: 00 Yes 50mg Take 1 tablet by mouth every 6 (six) hours as needed for Pain (scale 4-6). [facility] ciprofloxac in HCl 500 mg tablet 10-12 00:00: 00 Yes 500mg Take 1 tablet by mouth 2 (two) times daily. [facility] metroNIDAZO LE 500 mg tablet 10-12 00:00: 00 Yes 500mg Take 1 tablet by mouth 2 (two) times daily. [facility] diphenoxyla te-atropine (LOMOTIL) 2.5-0.025 mg per tablet 10-12 00:00: 00 Yes 1{tbl} Take 1 tablet by mouth every 6 (six) hours as needed (t). [facility] traMADOL 50 mg tablet 10-12 00:00: 00 Yes 50mg Take 1 tablet by mouth every 6 (six) hours as needed for Pain (scale 4-6). [facility] ciprofloxac in HCl 500 mg tablet 10-12 00:00: 00 Yes 500mg Take 1 tablet by mouth 2 (two) times daily. [facility] metroNIDAZO LE 500 mg tablet 10-12 00:00: 00 Yes 500mg Take 1 tablet by mouth 2 (two) times daily. [facility] diphenoxyla te-atropine (LOMOTIL) 2.5-0.025 mg per tablet 10-12 00:00: 00 Yes 1{tbl} Take 1 tablet by mouth every 6 (six) hours as needed (t). [facility] triamcinolo ne acetonide (KENALOG) 0.1 % ointment 03-21 00:00: 00 Yes [id number] Apply to area(s) 2 (two) times daily. [facility] triamcinolo ne acetonide (KENALOG) 0.1 % ointment 03-21 00:00: 00 Yes [id number] Apply to area(s) 2 (two) times daily. [facility] triamcinolo ne acetonide (KENALOG) 0.1 % ointment 03-21 00:00: 00 Yes [id number] Apply to area(s) 2 (two) times daily. [facility] triamcinolo ne acetonide (KENALOG) 0.1 % ointment 03-21 00:00: 00 Yes [id number] Apply to area(s) 2 (two) times daily. [facility] triamcinolo ne acetonide (KENALOG) 0.1 % ointment 03-21 00:00: 00 Yes [id number] Apply to area(s) 2 (two) times daily. [facility] triamcinolo ne acetonide (KENALOG) 0.1 % ointment 03-21 00:00: 00 Yes [id number] Apply to area(s) 2 (two) times daily. [facility] triamcinolo ne acetonide (KENALOG) 0.1 % ointment 03-21 00:00: 00 Yes [id number] Apply to area(s) 2 (two) times daily. [facility] triamcinolo ne acetonide (KENALOG) 0.1 % ointment 03-21 00:00: 00 Yes [id number] Apply to area(s) 2 (two) times daily. [facility] triamcinolo ne acetonide (KENALOG) 0.1 % ointment 03-21 00:00: 00 Yes [id number] Apply to area(s) 2 (two) times daily. [facility] Vital Signs Vital Name Observation Time Observation Value Comments S ource Systolic blood pressure 2022-06-27 23:00:00 114 mm[Hg] [facility] Diastolic blood pressure 2022-06-27 23:00:00 77 mm[Hg] [facility] Heart rate 2022-06-27 23:00:00 96 /min [facility] Respiratory rate 2022-06-27 23:00:00 16 /min [facility] Oxygen saturation in Arterial blood by Pulse oximetry 2022-06-27 23:00:00 96 /min [facility] Body temperature 2022-06-27 20:29:00 36.61 Jeanette [facility] Body height 2022-06-27 20:29:00 175.3 cm [facility] Body weight 2022-06-27 20:29:00 81.647 kg [facility] BMI 2022-06-27 20:29:00 26.58 kg/m2 [facility] Systolic blood pressure 2021-05-03 17:27:00 127 mm[Hg] [facility] Diastolic blood pressure 2021-05-03 17:27:00 74 mm[Hg] [facility] Heart rate 2021-05-03 17:27:00 94 /min [facility] Body temperature 2021-05-03 17:27:00 37.11 Jeanette [facility] Respiratory rate 2021-05-03 17:27:00 16 /min [facility] Body height 2021-05-03 17:27:00 175.3 cm [facility] Body weight 2021-05-03 17:27:00 68.04 kg [facility] BMI 2021-05-03 17:27:00 22.15 kg/m2 [facility] Oxygen saturation in Arterial blood by Pulse oximetry 2021-05-03 17:27:00 97 /min [facility] Systolic blood pressure 2021-04-22 20:25:00 99 mm[Hg] [facility] Diastolic blood pressure 2021-04-22 20:25:00 64 mm[Hg] [facility] Heart rate 2021-04-22 20:25:00 75 /min [facility] Body temperature 2021-04-22 20:25:00 36.5 Jeanette [facility] Respiratory rate 2021-04-22 20:25:00 17 /min [facility] Oxygen saturation in Arterial blood by Pulse oximetry 2021-04-22 20:25:00 99 /min [facility] Body height 2021-04-22 18:25:00 175.3 cm [facility] Body weight 2021-04-22 18:25:00 84.823 kg [facility] BMI 2021-04-22 18:25:00 27.62 kg/m2 [facility] Systolic blood pressure 2021-04-16 16:16:00 137 mm[Hg] [facility] Diastolic blood pressure 2021-04-16 16:16:00 68 mm[Hg] [facility] Heart rate 2021-04-16 16:16:00 78 /min [facility] Body temperature 2021-04-16 16:16:00 36.83 Jeanette [facility] Respiratory rate 2021-04-16 16:16:00 18 /min [facility] Body height 2021-04-16 16:16:00 175.3 cm [facility] Body weight 2021-04-16 16:16:00 80.74 kg [facility] BMI 2021-04-16 16:16:00 26.29 kg/m2 [facility] Oxygen saturation in Arterial blood by Pulse oximetry 2021-04-16 16:16:00 97 /min [facility] Systolic blood pressure 2020-12-29 00:00:00 123 mm[Hg] [facility] Diastolic blood pressure 2020-12-29 00:00:00 82 mm[Hg] [facility] Heart rate 2020-12-29 00:00:00 77 /min [facility] Respiratory rate 2020-12-29 00:00:00 16 /min [facility] Oxygen saturation in Arterial blood by Pulse oximetry 2020-12-29 00:00:00 99 /min [facility] Body temperature 2020-12-28 20:34:00 37 Jeanette [facility] Body weight 2020-12-28 20:34:00 68.04 kg [facility] BMI 2020-12-28 20:34:00 22.81 kg/m2 [facility] Systolic blood pressure 2020-12-29 00:00:00 123 mm[Hg] [facility] Diastolic blood pressure 2020-12-29 00:00:00 82 mm[Hg] [facility] Heart rate 2020-12-29 00:00:00 77 /min [facility] Respiratory rate 2020-12-29 00:00:00 16 /min [facility] Oxygen saturation in Arterial blood by Pulse oximetry 2020-12-29 00:00:00 99 /min [facility] Body temperature 2020-12-28 20:34:00 37 Jeanette [facility] Body weight 2020-12-28 20:34:00 68.04 kg [facility] BMI 2020-12-28 20:34:00 22.81 kg/m2 [facility] Systolic blood pressure 2020-11-25 22:00:00 125 mm[Hg] [facility] Diastolic blood pressure 2020-11-25 22:00:00 87 mm[Hg] [facility] Heart rate 2020-11-25 22:00:00 89 /min [facility] Respiratory rate 2020-11-25 22:00:00 19 /min [facility] Oxygen saturation in Arterial blood by Pulse oximetry 2020-11-25 22:00:00 96 /min [facility] Body temperature 2020-11-25 20:16:00 36.67 Jeanette [facility] Body weight 2020-11-25 20:16:00 68.04 kg [facility] BMI 2020-11-25 20:16:00 22.81 kg/m2 [facility] Systolic blood pressure 2020-11-25 22:00:00 125 mm[Hg] [facility] Diastolic blood pressure 2020-11-25 22:00:00 87 mm[Hg] [facility] Heart rate 2020-11-25 22:00:00 89 /min [facility] Respiratory rate 2020-11-25 22:00:00 19 /min [facility] Oxygen saturation in Arterial blood by Pulse oximetry 2020-11-25 22:00:00 96 /min [facility] Body temperature 2020-11-25 20:16:00 36.67 Jeanette [facility] Body weight 2020-11-25 20:16:00 68.04 kg [facility] BMI 2020-11-25 20:16:00 22.81 kg/m2 [facility] Procedures Procedure Date / Time Performed Performing Clinicia n Source D-DIMER 2022-06-27 22:38:00 Jonathan Somers [facility] LIPASE 2022-06-27 21:15:00 Jonathan Somers [facility] MAGNESIUM 2022-06-27 21:15:00 [facility] TROPONIN I 2022-06-27 21:15:00 [facility] COMP. METABOLIC PANEL (47400) 2022-06-27 21:15:00 Singer [facility] CBC WITH DIFF 2022-06-27 21:15:00 Jonathan Somers [facility] N-TERMINAL PRO-BNP 2022-06-27 21:15:00 Singer [facility] XR CHEST 1 VW 2022-06-27 21:00:39 Jonathan Somers [facility] CONSENT/REFUSAL FOR DIAGNOSIS AND TREATMENT 2022-06-27 19:54:43 Doctor Unassigned, [place] [facility] CONSENT/REFUSAL FOR DIAGNOSIS AND TREATMENT 2021-05-03 16:52:48 Doctor Unassigned, [place] [facility] ASSIGNMENT OF BENEFITS 2021-04-16 17:52:37 Docto r Unassigned, [place] [facility] RAPID STREP SCREEN FOR GROUP A 2021-04-16 16:30:00 Mary Beth Santacruz [facility] CONSENT/REFUSAL FOR DIAGNOSIS AND TREATMENT 2021-04-16 15:59:46 Doctor Unassigned, [place] [facility] URINALYSIS 2020-12-29 00:19:00 [facility]REFUSAL FOR [facility]AGNOSIS AND TREATMENT 2020-12-28 20:23:27 Doctor Unassigned, [place] [facility] TROPONIN I 2020-11-25 22:10:00 Huang Garg [facility] XR CHEST 1 VW 2020-11-25 20:46:11 Huang Garg [facility] LIPASE 2020-11-25 20:34:00 [facility] TROPONIN I 2020-11-25 20:34:00 [facility] HEPATIC FUNCTION PANEL (92621) (ALB,T.PRO,BILI T,BU/BC,ALT,AST,ALK PHOS) 2020-11-25 20:34:00 Frank [facility] BASIC METABOLIC PANEL (NA, K, CL, CO2, GLUCOSE, BUN, CREATININE, CA) 2020-11-25 20:34:00 Frank [facility] CBC WITH DIFF 2020-11-25 20:34:00 [facility] N-TERMINAL PRO-BNP 2020-11-25 20:34:00 Frank [facility] HB ECG ROUTINE & RHYTHM STRIP 2020-11-25 20:22:52 Frank [facility] Encounters Start Date/Time End Date/Time Encounter Type Admission Type Attending [facility] Facility Care Department Encounter ID Source 2021-07-05 19:02:36 Emergency [facility] [id number] [facility] 2021-07-05 15:21:12 Emergency [facility] [id number] [facility] 2021-07-04 15:22:03 Emergency [facility] [id number] [facility] 2022-06-27 15:34:00 2022-06-27 18:56:00 Emergency X JONATHAN SOMERS [facility] ERT [id number] [facility] 2022-06-27 15:34:00 2022-06-27 18:56:00 Emergency Jonathan Somers [facility] 1.2.840.114 350.1.13.10 4.2.7.2.686 [id number] [facility] 2021-05-03 12:30:00 2021-05-03 21:32:00 Emergency Sidra Suh [facility] 1.2.840.114 350.1.13.10 4.2.7.2.686 [id number] [facility] 2021-05-03 00:00:00 2021-05-03 00:00:00 Orders Only Doctor Unassigned, [place] [facility] 1.2.840.114 350.1.13.10 4.2.7.2.686 [id number] [facility] 2021-04-22 12:53:19 2021-04-22 13:53:19 Nurse Visit Therapy, [facility] Covid Darrell Lares [facility] 1.2.840.114 350.1.13.10 4.2.7.2.686 [id number] [facility] 2021-04-22 13:00:00 2021-04-22 13:00:00 Outpatient R DARRELL FRANCOIS [facility] [id number] [facility] 2021-04-16 11:17:00 2021-04-16 13:59:00 Emergency Mary Beth Santacruz [facility] 1.2.840.114 350.1.13.10 4.2.7.2.686 [id number] [facility] 2020-12-28 17:44:00 2020-12-28 21:05:00 Emergency Geno Villalobos [facility] 1.2.840.114 350.1.13.10 4.2.7.2.686 [id number] [id number] 2020-12-28 17:44:00 2020-12-28 21:05:00 Emergency Geno Villalobos [facility] 1.2.840.114 350.1.13.10 4.2.7.2.686 [id number] [facility] 2020-11-25 15:17:00 2020-11-25 17:55:00 Emergency Huang Garg [facility] 1.2.840.114 350.1.13.10 4.2.7.2.686 [id number] 2020-11-25 15:17:00 2020-11-25 17:55:00 Emergency Huang Garg [facility] 1.2.840.114 350.1.13.10 4.2.7.2.686 [id number] [facility] 2020-11-25 15:17:00 2020-11-25 17:55:00 Emergency X HUANG GARG [facility] ERT [id number] [facility] Results Test Description Test Time Test Comments Results Result Co mments Source [facility] [id number] 21:54:56* Test Item Value Reference Range Interpretation Comments TROPONIN I (test code = 3130711736) 0.003 ng/mL See_Comment [Automated message] The system which generated this result transmitted reference range: <=0.034. The reference range was not used to interpret this result as normal/abnormal. LYUDMILA (test code = LYUDMILA) Reference (Normal) Range (defined by the 99th percentile reference [...] to patient's use of biotin. Lab Interpretation (test code = 51822-5) Normal [facility] [id number] 21:51:38* Test Item Value Reference Range Interpretation Comme nts NT-proBNP (test code = 8974955193) 29 pg/mL See_Comment [Automated message] The system which generated this result transmitted reference range: <=125. The reference range was not used to interpret this result as normal/abnormal. LYUDMILA (test code = LYUDMILA) Biotin has been reported to cause a negative bias, interpret results relative to patient's use of biotin. Lab Interpretation (test code = 14277-0) Normal [facility]IC PAN[facility] (72755)2022-06-27 21:43:18* Test Item Value Reference Range Interpretation Comme nts NA (test code = 1487127132) 135 mmol/L 135-145 K (test code = 4313478577) 4.5 mmol/L 3.5-5 CL (test code = 8079709121) 100 mmol/L 98-108 CO2 TOTAL (test code = 9636399266) 25 mmol/L 23-31 AGAP (test code = 0624199751) 2-16 BUN (test code = 6915273288) 10 mg/dL 7-23 GLUCOSE (test code = 1991627880) 91 mg/dL 70-110 CREATININE (test code = 9627797552) 0.75 mg/dL 0.5-1.04 TOTAL BILI (test code = 0964270708) 0.7 mg/dL 0.1-1.1 CALCIUM (test code = 2146453509) 9.9 mg/dL 8.6-10.6 T PROTEIN (test code = 8132838660) 7.9 g/dL 6.3-8.2 ALBUMIN (test code = 6484395597) 4.8 g/dL 3.5-5 ALK PHOS (test code = 7871814707) 78 U/L 34-122 ALTv (test code = 1742-6) 15 U/L 5-35 AST(SGOT) (test code = 7714550118) 24 U/L 13-40 eGFR (test code = 2193890428) mL/min/1.73m2 LYUDMILA (test code = LYUDMILA) Association of [...] or urine or abnormalities in imaging tests). [facility]20[facility]-24 21:43:18* Test Item Value Reference Range Interpretation Comme nts MAGNESIUM (test code = 8515609165) 2.1 mg/dL 1.7-2.4 Lab Interpretation (test cod e = 72044-5) Normal [facility]2022-[facility] 21:42:58* Test Item Value Reference Range Interpretation Comme nts LIPASE (test code = 5449796238) 104 U/L 0-220 Lab Interpretation (test cod e = 11608-1) Normal [facility] WITH [id number] 21:30:16* Test Item Value Reference Range Interpretation Comme nts WBC (test code = 6690-2) See_Comment [Automated [employer]] The system which generated this result transmitted reference range: 4.30 - 11.10 10*3/?L. The reference range was not used to interpret this result as normal/abnormal. RBC (test code = 789-8) See_Comment [Automated [employer]] The system which generated this result transmitted reference range: 3.93 - 5.25 10*6/?L. The reference range was not used to interpret this result as normal/abnormal. HGB (test code = 718-7) 14.2 g/dL 11.6-15 HCT (test code = 4544-3) 39.3 % 35.7-45.2 MCV (test code = 787-2) 91.2 fL 80.6-95.5 MCH (test code = 785-6) 32.9 pg 25.9-32.8 H MCHC (test code = 786-4) 36.1 g/dL 31.6-35.1 H RDW-SD (test code = 87549-4) 38.7 fL 39-49.9 L RDW-CV (test code = 788-0) 11.5 % 12-15.5 L PLT (test code = 777-3) See_Comment [Automated messa ge] The system which generated this result transmitted reference range: 166 - 358 10*3/?L. The reference range was not used to interpret this result as normal/abnormal. MPV (test code = 65937-3) 8.9 fL 9.5-12.9 L NRBC/100 WBC (test code = 7414580005) See_Comment [Automated [employer] ssage] The system which generated this result transmitted reference range: 0.0 - 10.0 /100 WBCs. The reference range was not used to interpret this result as normal/abnormal. NRBC x10^3 (test code = 9411433354) See_Comment [Automated [employer]] The system which generated this result transmitted reference range: 10*3/?L. The reference range was not used to interpret this result as normal/abnormal. GRAN MAT (NEUT) % (test code = 770-8) 68.5 % IMM GRAN % (test code = 4082840715) 0.60 % LYMPH % (test code = 736-9) 21.3 % MONO % (test code = 5905-5) 6.8 % EOS % (test code = 713-8) 2.4 % BASO % (test code = 706-2) 0.4 % GRAN MAT x10^3(ANC) (test code = 6935717097) 6.86 10*3/uL 1.88-7.09 IMM GRAN x10^3 (test code = 4950770224) 0.06 10*3/uL 0-0.06 LYMPH x10^3 (test code = 731-0) 2.13 10*3/uL 1.32-3.29 MONO x10^3 (test code = 742-7) 0.68 10*3/uL 0.33-0.92 EOS x10^3 (test code = 711-2) 0.24 10*3/uL 0.03-0.39 BASO x10^3 (test code = 704-7) 0.04 10*3/uL 0.01-0.07 Lab Interpretation (test code = 75969-5) Abnormal [facility] S[facility]EN FOR GROUP [id number] 17:16:32* Test Item Value Reference Range Interpretation Comme nts Streptococcus pyogenes (group A) antigen (test code = 90434-0) Negative Negative LYUDMILA (test code = LYUDMILA) Performed on [employer]. Lab Interpretation (test code = 35523-1) Normal [facility]IS2021-04-27 00:53:40* Test Item Value Reference Range Interpretation Comme nts APPEARANCE (test code = 9985504987) Clear Clear COLOR (test code = 4966001452) Straw Yellow A PH (test code = 2951953643) 4.8-8.0 SP GRAVITY (test code = 6201945578) 1.003-1.030 GLU U QUAL (test code = 6918524321) Normal Normal BLOOD (test code = 9209311560) Negative Negative KETONES (test code = 7343131152) Negative Negative PROTEIN (test code = 2887-8) Negative Negative UROBILIN (test code = 5483042036) Normal Normal BILIRUBIN (test code = 5909687120) Negative Negative NITRITE (test code = 1348444657) Negative Negative LEUK ADALI (test code = 1515619472) Negative Negative RBC/HPF (test code = 4941524037) <1 See_Comment [Automated messa ge] The system which generated this result transmitted reference range: 0 - 3 HPF. The reference range was not used to interpret this result as normal/abnormal. WBC/HPF (test code = 4376490080) <1 See_Comment [Automated [employer]] The system which generated this result transmitted reference range: 0 - 5 HPF. The reference range was not used to interpret this result as normal/abnormal. BACTERIA (test code = 8452915034) Negative Negative Lab Interpretation (test code = 86952-7) Abnormal [facility] [id number] 22:39:08* Test Item Value Reference Range Interpretation Comme nts TROPONIN I (test code = 2519831727) 0.000 ng/mL See_Comment [Automated message] The system which generated this result transmitted reference range: <=0.034. The reference range was not used to interpret this result as normal/abnormal. LYUDMILA (test code = LYUDMILA) Equal or Less than 0.034 ng/ml---Normal ?Note: Cardiac troponin begins to [...] patient's use of biotin. ? Lab Interpretation (test code = 01565-6) Normal [facility] [id number] 21:51:20* Test Item Value Reference Range Interpretation Comme nts TROPONIN I (test code = 3713701126) 0.001 ng/mL See_Comment [Automated message] The system which generated this result transmitted reference range: <=0.034. The reference range was not used to interpret this result as normal/abnormal. LYUDMILA (test code = LYUDMILA) Equal or Less than 0.034 ng/ml---Normal ?Note: Cardiac troponin begins to [...] patient's use of biotin. ? Lab Interpretation (test code = 89516-9) Normal [facility] [id number] 21:39:24* Test Item Value Reference Range Interpretation Comme nts NT-proBNP (test code = 2320568673) 18 pg/mL See_Comment [Automated message] The system which generated this result transmitted reference range: <=125. The reference range was not used to interpret this result as normal/abnormal. LYUDMILA (test code = LYUDMILA) Biotin has been reported to cause a negative bias, interpret results relative to patient's use of biotin. Lab Interpretation (test code = 24074-2) Normal [facility] (ALB, T.PRO, BILI T, BU/BC, ALT, AST, ALK PHOS)2020-11-25 21:30:41* Test Item Value Reference Range Interpretation Comme nts TOTAL BILI (test code = 2231595538) 0.5 mg/dL 0.1-1.1 BILI UNCON (test code = 3620310054) 0.4 mg/dL 0.1-1.1 BILI CONJ (test code = 7036608647) 0.0 mg/dL 0.0-0.3 T PROTEIN (test code = 6850461190) 7.2 g/dL 6.3-8.2 ALBUMIN (test code = 3882671528) 4.2 g/dL 3.5-5.0 ALK PHOS (test code = 5295230409) 83 U/L 34-122 ALTv (test code = 1742-6) 15 U/L 5-35 AST(SGOT) (test code = 8961762580) 23 U/L 13-40 Lab Interpretation (test cod e = 90592-7) Normal [facility] Metabolic Panel (NA, K, CL, CO2, GLUCOSE, BUN, CREATININE, CA)2020-11-25 21:30:20* Test Item Value Reference Range Interpretation Comme nts NA (test code = 1420369590) 137 mmol/L 135-145 K (test code = 5286892491) 3.2 mmol/L 3.5-5.0 L CL (test code = 7922914962) 106 mmol/L 98-108 CO2 TOTAL (test code = 3544381041) 23 mmol/L 23-31 AGAP (test code = 4257183188) 2-16 BUN (test code = 3929480231) 4 mg/dL 7-23 L GLUCOSE (test code = 0757698355) 167 mg/dL 70-110 H CREATININE (test code = 1617436437) 0.60 mg/dL 0.50-1.04 CALCIUM (test code = 0069337307) 8.9 mg/dL 8.6-10.6 eGFR Calculation (Non-) (test code = 0973785590) mL/min/1.73m2 eGFR Calculation () (test code = 7157991408) mL/min/1.73m2 LYUDMILA (test code = LYUDMILA) Association of [...] or abnormalities in imaging tests). Lab Interpretation (test code = 19128-7) Abnormal [facility] System[facility] [id number] 21:30:20* Test Item Value Reference Range Interpretation Comme nts LIPASE (test code = 4837521198) 73 U/L 0-220 Lab Interpretation (test cod e = 87526-2) Normal [facility] 1 [id number] 21:02:07No acute cardiopulmonary abnormality. Preliminary Report Dictated by [...] reviewed this study and agree with theabove report.[facility] System[facility] with [id number] 20:57:54* Test Item Value Reference Range Interpretation Comme nts WBC (test code = 6690-2) See_Comment [Automated messa ge] The system which generated this result transmitted reference range: 4.30 - 11.10 10*3/?L. The reference range was not used to interpret this result as normal/abnormal. RBC (test code = 789-8) See_Comment [Automated messa ge] The system which generated this result transmitted reference range: 3.93 - 5.25 10*6/?L. The reference range was not used to interpret this result as normal/abnormal. HGB (test code = 718-7) 13.3 g/dL 11.6-15.0 HCT (test code = 4544-3) 39.5 % 35.7-45.2 MCV (test code = 787-2) 94.3 fL 80.6-95.5 MCH (test code = 785-6) 31.7 pg 25.9-32.8 MCHC (test code = 786-4) 33.7 g/dL 31.6-35.1 RDW-SD (test code = 71711-7) 42.4 fL 39.0-49.9 RDW-CV (test code = 788-0) 12.2 % 12.0-15.5 PLT (test code = 777-3) See_Comment [Automated messa ge] The system which generated this result transmitted reference range: 166 - 358 10*3/?L. The reference range was not used to interpret this result as normal/abnormal. MPV (test code = 60555-3) 8.9 fL 9.5-12.9 L NRBC/100 WBC (test code = 4425015418) See_Comment [Automated [employer] ssage] The system which generated this result transmitted reference range: 0.0 - 10.0 /100 WBCs. The reference range was not used to interpret this result as normal/abnormal. NRBC x10^3 (test code = 4133159138) <0.01 See_Comment [Automated messa ge] The system which generated this result transmitted reference range: 10*3/?L. The reference range was not used to interpret this result as normal/abnormal. GRAN MAT (NEUT) % (test code = 770-8) 68.9 % IMM GRAN % (test code = 2480487644) 0.50 % LYMPH % (test code = 736-9) 22.0 % MONO % (test code = 5905-5) 5.7 % EOS % (test code = 713-8) 2.6 % BASO % (test code = 706-2) 0.3 % GRAN MAT x10^3(ANC) (test code = 0408785825) 4.49 10*3/uL 1.88-7.09 IMM GRAN x10^3 (test code = 9500363700) 0.03 10*3/uL 0.00-0.06 LYMPH x10^3 (test code = 731-0) 1.43 10*3/uL 1.32-3.29 MONO x10^3 (test code = 742-7) 0.37 10*3/uL 0.33-0.92 EOS x10^3 (test code = 711-2) 0.17 10*3/uL 0.03-0.39 BASO x10^3 (test code = 704-7) <0.03 0.01-0.07 Lab Interpretation (test code = 72808-7) Abnormal [facility]"
[2023-08-24 16:03] LABS: Absolute Lymphocytes (CBC) 1.6 K/uL (0.7-4.9); Lymphocytes % 21.6 % (15.3-44.8); MCV 91.8 fL (80-100); MPV 6.5 fL (7.6-11.3); Platelets 244 thou/uL (152-406); RBC Red Blood Cell Count 3.82 M/uL (3.86-4.86)
[2023-08-24 16:25] LABS: Albumin 3.3 g/dL (3.4-5.0); Bilirubin Total 0.3 mg/dL (0.2-1.0); Potassium 3.8 mEq/L (3.5-5.1); Protein, Total 7.7 g/dL (6.4-8.2); Troponin High Sensitivity 4.1 pg/mL (<58.9)
--- NOTE | 2023-08-24 17:43 | RAD REPORT ---
EXAM DESCRIPTION: CT - Angio Aorta For Dissection - 08/24/2023 4:49 pm CLINICAL HISTORY: abdomen, chest pain COMPARISON: No comparisons TECHNIQUE: Thin axial CT images of the chest, abdomen, and pelvis were obtained during administratio n of 100mL Isovue 370 IV contrast. Sagittal and coronal reconstructions as well as maximal intensity projection reconstruction were generated and reviewed per an aortic angiography protocol. All CT scans are performed using dose optimization technique as appropriate and may include automated exposure control or mA/KV adjustment according to patient size. FINDINGS: Aorta is normal in diameter with no dissection or other acute aortic findings. Reconstruct ion images show no significant findings. Pulmonary arteries are normal as well. No mass or infiltrate in the lung parenchyma. 3 mm nodule along the left major fissure, axial image 5 4, benign in appearance. No pleural thickening, pleural effusion or pneumothorax. No abnormal mediastinal or hilar mass or lymphadenopathy seen. No chest wall mass or abnormal axillar y lymphadenopathy. Celiac, SMA and renal arteries show no suspicious findings. Diffuse hepatic parenchymal hypoattenuati on suggesting steatosis. Solid abdominal viscera and bowel show no other significant findings. Append ix is unremarkable. No mass or abnormal lymphadenopathy. IMPRESSION: No acute abnormalities on CT angiogram of the aorta. Hepatic steatosis. No other significant findings on chest, abdomen, and pelvis examination.
--- NOTE | 2023-08-24 17:59 | EDPHYS ---
Physician Documentation [facility] Name: Susana Florez Age: 43 yrs Sex: Female : 1980 Arrival Date: 08/24/2023 Time: 13:12 Bed DX4 Private MD: ED Physician Ruy Cervantes HPI: 08/24 15:00 This 43 yrs old Female presents to ER via Ambulatory with complaints of Chest Pain, rt Abdominal Pain. 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 She denies nausea, vomiting. Denies other acute complaints at this time, symptoms are moderate in severity, aching nature, no other aggravating or alleviating factors.. Historical: - Allergies: 13:32 Darvocet-N 100; ll1 - PMHx: 13:32 Anxiety; Asthma; Asthma; Depression; GERD; Migraines; ll1 - PSHx: 13:32 shoulder surgery; Ligation of fallopian tube; ll1 - Immunization history:: Adult Immunizations up to date. - Social history:: Smoking status: Reported history of juuling and/or vaping. - Family history:: not pertinent. ROS: 15:00 Constitutional: Negative for fever, chills, and weight loss, Respiratory: Negative for rt shortness of breath, cough, wheezing, and pleuritic chest pain, MS/Extremity: Negative for injury and deformity, Skin: Negative for injury, rash, and discoloration, Neuro: Negative for headache, weakness, numbness, tingling, and seizure, Psych: Negative for depression, anxiety, suicide ideation, homicidal ideation, and hallucinations, 15:00 Cardiovascular: Positive for chest pain, Negative for edema, 15:00 Abdomen/GI: Positive for abdominal pain, Negative for nausea, vomiting, and diarrhea, 15:00 Back: Positive for pain at rest, pain with movement, Negative for Exam: 15:00 Constitutional: This is a well developed, well nourished patient who is awake, alert, rt and in no acute distress. Head/Face: Normocephalic, atraumatic. Chest/axilla: Normal chest wall appearance and motion. Nontender with no deformity. No lesions are appreciated. Cardiovascular: Regular rate and rhythm with a normal S1 and S2. No gallops, murmurs, or rubs. Normal PMI, no JVD. No pulse deficits. Skin: Warm, dry with normal turgor. Normal color with no rashes, no lesions, and no evidence of cellulitis. MS/ Extremity: Pulses equal, no cyanosis. Neurovascular intact. Full, normal range of motion. Neuro: Awake and alert, GCS 15, oriented to person, place, time, and situation. Cranial nerves II-XII grossly intact. Motor strength 5/5 in all extremities. Sensory grossly intact. Cerebellar exam normal. Normal gait. Psych: Awake, alert, with orientation to person, place and time. Behavior, mood, and affect are within normal limits. 15:00 Respiratory: Wheezes heard on all lung michael, no respiratory distress, 15:00 Abdomen/GI: Mild epigastric tenderness without rebound, guarding, distention, Vital Signs: 13:36 BP 158 / 94; Pulse 88; Resp 18; Temp 98.1; Pulse Ox 98% ; Height 5 ft. 9 in. ; Pain ll1 9/10; 13:36 Pain Scale: Adult ll1 MDM: 13:34 Patient medically screened. rt 18:02 Differential diagnosis: Pancreatitis, gastritis, abdominal wall pain, aortic rt dissection. Data reviewed: vital signs, nurses notes, lab test result(s), EKG, radiologic studies. Consideration of Admission/Observation Escalation of care including admission/observation considered. I considered the following discharge prescriptions or medication management in the emergency department Medications were administered in the Emergency Department. See MAR. Independent interpretation of the following test(s) in the Emergency Department CT Scan: My interpretation is No aortic dissection seen on interpretation of CT scan images. Care significantly affected by the following chronic conditions: Asthma. Counseling: I had a detailed discussion with the patient and/or guardian regarding the historical points, exam findings, and any diagnostic results supporting the discharge/admit diagnosis, lab results, radiology results, the need for outpatient follow up, to return to the emergency department if symptoms worsen or persist or if there are any questions or concerns that arise at home. Response to treatment: the patient's symptoms have markedly improved after treatment. ED course: Patient informed of findings of hepatic steatosis as well as pulmonary nodule instructed to follow-up for these.. 08/24 13:39 Order name: CBC with Diff; Complete Time: 16:26 rt 08/24 13:39 Order name: CMP; Complete Time: 16:26 rt 08/24 13:39 Order name: Troponin High Sensitivity; Complete Time: 16:26 rt 08/24 13:39 Order name: Lipase; Complete Time: 16:26 rt 08/24 13:39 Order name: Test, Serum; Complete Time: 16:26 rt 08/24 13:39 Order name: CT Aorta for Dissection; Complete Time: 17:46 rt Administered Medications: 16:18 Drug: morphine IVP or IV 4 mg IVP once over 4 mins Route: IVP; Infused Over: 4 mins; iw Site: right antecubital; 17:00 Follow up: Response: No adverse reaction; Pain is decreased iw 16:18 Drug: Ondansetron IVP 4 mg IVP once; over 2 minutes Route: IVP; Site: right antecubital;iw 17:00 Follow up: Response: No adverse reaction iw Disposition Summary: 08/24/23 17:58 Discharge Ordered Notes: Location: Home rt Problem: new rt Symptoms: have improved rt Condition: Stable rt Diagnosis - Abdominal pain, unspecified rt Followup: rt - With: Private Physician - When: 2 - 3 days - Reason: Discharge Instructions: - Discharge Summary Sheet rt - Abdominal Pain, Adult rt Forms: - Medication Reconciliation Form rt - Thank You Letter rt - Antibiotic Education rt - Prescription Opioid Use rt - Patient Portal Instructions rt - Leadership Thank You Letter rt Prescriptions: - albuterol sulfate 90 mcg/actuation Inhalation HFA Aerosol Inhaler - inhale 2 inhalation INHALATION route every 2 to 4 hours as needed for rt bronchospasm; 2 Each; Refills: 0, Product Selection Permitted Signatures: Dispatcher [employer] Zina Jay RN RN iw Mitzy Conde RN RN ll1 Ruy Cervantes MD MD rt Corrections: (The following items were deleted from the chart) 13:39 13:37 Social history: Smoking status: Patient reports the use of cigarette tobacco ll1 products, smokes one-half pack cigarettes per day, ll1
--- NOTE | 2023-08-24 17:59 | ER ---
Nurse's Notes [facility] Name: Susana Florez Age: 43 yrs Sex: Female : 1980 Arrival Date: 08/24/2023 Time: 13:12 Bed DX4 Private MD: Diagnosis: Abdominal pain, unspecified Presentation: 08/24 13:33 Ebola Screen: Patient denies travel to an Ebola-affected area in the 21 days before 1 illness onset. Initial Sepsis Screen: Does the patient meet any 2 criteria? No. Patient's initial sepsis screen is negative. Does the patient have a suspected source of infection? Yes: Acute abdominal pain. Risk Assessment: Do you want to hurt yourself or someone else? Patient reports no desire to harm self or others. 13:33 Method Of Arrival: Ambulatory [facility] 13:33 Acuity: DIMPLE 3 1 13:36 Chief complaint: Patient states: Tightness in upper abdomen for 3 days. Pain to B upper 1 abdomen and lower chest. Coronavirus screen: Client denies travel out of the [place] in the last 14 days. 13:38 Onset of symptoms was August 22, 2023. 1 Triage Assessment: 13:33 General: Appears in no apparent distress. Behavior is calm, cooperative, appropriate ll1 for age. Pain: Complains of pain in chest/abdomen. Cardiovascular: Reports chest pain. GI: Reports upper abdominal pain. Historical: - Allergies: 13:32 Darvocet-N 100; ll1 - PMHx: 13:32 Anxiety; Asthma; Asthma; Depression; GERD; Migraines; ll1 - PSHx: 13:32 shoulder surgery; Ligation of fallopian tube; ll1 - Immunization history:: Adult Immunizations up to date. - Social history:: Smoking status: Reported history of juuling and/or vaping. - Family history:: not pertinent. Screenin:49 [facility] ED Fall Risk Assessment (Adult) Score/Fall Risk Level 0 - 2 = Low Risk. Abuse iw screen: Denies threats or abuse. Denies injuries from another. Nutritional screening: No deficits noted. Tuberculosis screening: No symptoms or risk factors identified. Assessment: 15:49 General: Appears in no apparent distress. Behavior is calm, cooperative. Pain: iw Complains of pain in abdomen Pain radiates to back Pain began. Neuro: Level of Consciousness is awake, alert, obeys commands, Oriented to person, place, time, situation, Moves all extremities. Full function. Respiratory: Respiratory effort is even, unlabored, Respiratory pattern is regular, symmetrical. GI: Reports upper abdominal pain. Vital Signs: 13:36 BP 158 / 94; Pulse 88; Resp 18; Temp 98.1; Pulse Ox 98% ; Height 5 ft. 9 in. ; Pain ll1 9/10; 13:36 Pain Scale: Adult ll1 ED Course: 13:14 Patient arrived in ED. rg4 13:17 Ruy Cervantes MD is Attending Physician. rt 13:32 Arm band placed on. ll1 13:33 Triage completed. ll1 15:50 Initial lab(s) drawn, by me, sent to lab. Inserted saline lock: 20 gauge in right iw antecubital area, using aseptic technique. Blood collected. 16:06 Zina Suh, RN is Primary Nurse. iw 16:51 CT Aorta for Dissection In Process Unspecified. EDMS 18:52 No provider procedures requiring assistance completed. IV discontinued, intact, iw bleeding controlled, No redness/swelling at site. Pressure dressing applied. Patient maintains SpO2 saturation greater than 95% on room air. Administered Medications: 16:18 Drug: morphine IVP or IV 4 mg IVP once over 4 mins Route: IVP; Infused Over: 4 mins; iw Site: right antecubital; 17:00 Follow up: Response: No adverse reaction; Pain is decreased iw 16:18 Drug: Ondansetron IVP 4 mg IVP once; over 2 minutes Route: IVP; Site: right antecubital;iw 17:00 Follow up: Response: No adverse reaction iw Outcome: 17:58 Discharge ordered by MD. rt 18:53 Patient left the ED. iw Signatures: Dispatcher [employer] EDMS Zina Suh RN RN iw Mary Bolton rg4 Mitzy Conde RN RN ll1 Ruy Cervantes MD MD rt Corrections: (The following items were deleted from the chart) 13:38 13:36 BP 158 / 94; Pulse 88bpm; Resp 18bpm; Pulse Ox 98%; Temp 98.1F; ll1 ll1 13:39 13:37 Social history: Smoking status: Patient reports the use of cigarette tobacco ll1 products, smokes one-half pack cigarettes per day, ll1 13:39 13:36 Chief complaint: Patient states: Tightness in upper abdomen for 2 days. Pain to B ll1 upper abdomen and lower chest 1
[2023-08-24 21:48] VITALS: BP 158/94; TEMP 98.1; O2SAT 98
== END ==
LOC: ER 13:12
DX: R10.13 Epigastric pain (principal); R07.9 Chest pain, unspecified
CPT/HCPCS: 36415; 71275; 74175; 80053; 83690; 84484; 84703; 85025; 96374; 96375; 99284; J2405; Q9967

== ENCOUNTER → 2023-10-10 | Emergency (ER) | payer SELFPAY ==
[2012-03-13 01:36] VITALS: BP 105/67
[~2023-10-10] MED LIST changes: +ACETAMINOPHEN 325 MG TABLET ONE; +AZITHROMYCIN 250 MG TAB ONE; +IPRATROPIUM BROM 0.5MG/2.5ML ONE; +LEVALBUTEROL 1.25 MG/3 ML NEB ONE; -MORPHINE 4 MG/ML SYR ONE; -ONDANSETRON 4 MG/2 ML VIAL ONE; +predniSONE 20 MG TAB ONE
--- OUTSIDE RECORDS SUMMARY | 2023-10-10 11:55 | XMS REPORT | Continuity of Care Document ---
Author Name Unknown Address [address] [facility] [address] [place] [address] [facility] Address [address] [facility] [address] [place] [address] Care Team Providers Care Stave Bolt Equalizer Name Role Phone PCP, PATIENT DOES NOT HAVE A Primary Care Physic kaitlyn Unavailable JONATHAN SOMERS Attending Clinician Unavailable Jonathan Somers DO Attending Clinician [phone] Sidra Suh DO Attending Clinician [phone] Danielle Montaño Attending Clinician + [phone] Doctor Unassigned, [place] Attending Clinician U navailable Therapy, [facility] Attending Clinician Unavailable Darrell Francois MD Attending Clinician [phone] DARRELL FRANCOIS Attending Clinician Unavailable Mary Beth Cisneros Attending Clinician [phone] Geno Harris Attending Clinician [phone] Huang Goyal Attending Clinician [phone] HUANG GARG Attending Clinician Unavailable JONATHAN SOMERS Admitting Clinician Unavailable HUANG GARG Admitting Clinician Unavailable Physician, No Primary or Family Admitting Clinic kaitlyn Unavailable Payers Payer Name Policy Type Policy Number Effective Date Expirati on Date Source Problems Condition Name Condition Details Condition Category Status Onset Date Resolution Date Last Treatment Date Treating Clinician Comments Source 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 Disease Recurre nce 7-20 00:00: 00 [facility] Allergies, Adverse Reactions, Alerts Allergy Name Allergy Type Status Severity Reaction(s) Onset Date Inactive Date Treating Clinician Comments Source No Known Allergie s DA Active U 04-11 00:00: 00 [facility] No Known Allergie s DA Active U 04-11 00:00: 00 [facility] PROPOXYP HENE N-ACETAM INOPHEN DRUG Active N/V 10-12 00:00: 00 [facility] Propoxyp hene N-Acetam inophen Propensi ty to adverse reaction s Active Nausea and/or Vomiting 10-12 00:00: 00 [facility] Social History Social Habit Start Date Stop Date Quantity Comments Source History of tobacco use Cigarette Smoker [facility] Exposure to SARS-CoV-2 (event) 2022-06-17 00:00:00 2022-06-27 15:28:00 Not sure [facility] Alcohol intake 2022-06-27 00:00:00 2022-06-27 00:00:00 [facility] Cigarettes smoked current (pack per day) - Reported 2017-10-12 00:00:00 2017-10-12 00:00:00 [facility] Cigarette pack-years 2017-10-12 00:00:00 2017-10-12 00:00:00 [facility] Tobacco use and exposure 2017-10-12 00:00:00 2017-10-12 00:00:00 Smokeless tobacco non-user [facility] Sex Assigned At 1980 00:00:00 1980 00:00:00 [facility] Smoking Status Start Date Stop Date Source Smokes tobacco daily 2017-10-12 00:00:00 [facility] Medications Ordered Medication Name Filled Medication Name Start Date Stop Date Current Medication? Ordering Clinician Indication Dosage Frequency Signature (SIG) Comments Components Source HYDROcodone -acetaminop hen (NORCO) 10-325 mg tablet 1 tablet 2021-09 00:15: 00 06-27 23:24 :00 No 1{tbl} 1 tablet, Oral, ONCE, 1 dose, On 06/27/22 at 1915, Routine [facility] casirivimab -imdevimab (REGEN-COV (EUA)) 1,200 mg in NaCl 0.9% (NS) 60 mL IV infusion 04-22 19:30: 00 04-22 19:24 :00 No [id number] 1200mg [facility] casirivimab -imdevimab (REGEN-COV (EUA)) 1,200 mg in NaCl 0.9% (NS) 60 mL IV infusion 04-22 19:30: 00 04-22 19:24 :00 No [id number] 1200mg 1,200 mg, IV Infusion, ONCE, Administer over 20 Minutes, Karina 04/22/21 at 1430, For 1 dose
Ad corn cooker as an IV infusion via pump or gravity over at least 60 minutes through an intravenou s line containing a sterile, in-line or add-on 0.2-micron polyethers ulfone (PES) filter.&nb sp;Stable 36 hours refrigerat ed; 4 hours at room temperatur e. &nbs p;
[facility] ondansetron (ZOFRAN-ODT ) disintegrat ing tablet 4 mg 04-16 17:30: 00 04-16 16:34 :00 No 4mg 4 mg, Oral, ONCE, 1 dose, Mon04/16/21 at 1230, Routine [facility] dexamethaso ne (DECADRON PHOSPHATE) injection 10 mg 04-16 17:30: 00 04-16 16:38 :00 No 10mg 10 mg, Intramuscu lar, ONCE, 1 dose, Mon04/16/21 at 1230, STAT [facility] ketorolac (TORADOL) injection 60 mg 04-16 17:30: 00 04-16 16:37 :00 No 60mg 60 mg, Intramuscu lar, ONCE, 1 dose, Mon04/16/21 at 1230, [facility] EMERGENCY ROOM, [facility] ondansetron (ZOFRAN ODT) 4 mg disintegrat ing tablet 04-16 00:00: 00 Yes [id number] 4mg Take 1 tablet by mouth every 8 (eight) hours as needed for Nausea and Vomiting (N/V). [facility] bromphenira mine-pseudo ephedrine-D M (BROMFED DM) 2-30-10 mg/5 mL syrup 04-16 00:00: 00 Yes [id number] 5mL Take 5 mL by mouth 4 (four) times daily as needed for Congestion /Allergies . [facility] ondansetron (ZOFRAN ODT) 4 mg disintegrat ing tablet 04-16 00:00: 00 Yes [id number] 4mg Take 1 tablet by mouth every 8 (eight) hours as needed for Nausea and Vomiting (N/V). [facility] bromphenira mine-pseudo ephedrine-D M (BROMFED DM) 2-30-10 mg/5 mL syrup 04-16 00:00: 00 Yes [id number] 5mL Take 5 mL by mouth 4 (four) times daily as needed for Congestion /Allergies . [facility] ondansetron (ZOFRAN ODT) 4 mg disintegrat ing tablet 04-16 00:00: 00 Yes [id number] 4mg Take 1 tablet by mouth every 8 (eight) hours as needed for Nausea and Vomiting (N/V). [facility] bromphenira mine-pseudo ephedrine-D M (BROMFED DM) 2-30-10 mg/5 mL syrup 04-16 00:00: 00 Yes [id number] 5mL Take 5 mL by mouth 4 (four) times daily as needed for Congestion /Allergies . [facility] ondansetron (ZOFRAN ODT) 4 mg disintegrat ing tablet 04-16 00:00: 00 Yes [id number] 4mg Take 1 tablet by mouth every 8 (eight) hours as needed for Nausea and Vomiting (N/V). [facility] bromphenira mine-pseudo ephedrine-D M (BROMFED DM) 2-30-10 mg/5 mL syrup 04-16 00:00: 00 Yes [id number] 5mL Take 5 mL by mouth 4 (four) times daily as needed for Congestion /Allergies . [facility] ondansetron (ZOFRAN ODT) 4 mg disintegrat ing tablet 04-16 00:00: 00 Yes [id number] 4mg Take 1 tablet by mouth every 8 (eight) hours as needed for Nausea and Vomiting (N/V). [facility] bromphenira mine-pseudo ephedrine-D M (BROMFED DM) 2-30-10 mg/5 mL syrup 04-16 00:00: 00 Yes [id number] 5mL Take 5 mL by mouth 4 (four) times daily as needed for Congestion /Allergies . [facility] ondansetron (ZOFRAN ODT) 4 mg disintegrat ing tablet 04-16 00:00: 00 Yes [id number] 4mg Take 1 tablet by mouth every 8 (eight) hours as needed for Nausea and Vomiting (N/V). [facility] bromphenira mine-pseudo ephedrine-D M (BROMFED DM) 2-30-10 mg/5 mL syrup 04-16 00:00: 00 Yes [id number] 5mL Take 5 mL by mouth 4 (four) times daily as needed for Congestion /Allergies . [facility] ondansetron (ZOFRAN ODT) 4 mg disintegrat ing tablet 04-16 00:00: 00 Yes [id number] 4mg Take 1 tablet by mouth every 8 (eight) hours as needed for Nausea and Vomiting (N/V). [facility] bromphenira mine-pseudo ephedrine-D M (BROMFED DM) 2-30-10 mg/5 mL syrup 04-16 00:00: 00 Yes [id number] 5mL Take 5 mL by mouth 4 (four) times daily as needed for Congestion /Allergies . [facility] predniSONE 20 mg tablet 04-16 00:00: 00 04-22 04:59 :00 No [id number] 40mg Take 2 tablets by mouth daily for 5 days. [facility] dexamethaso ne (DECADRON PHOSPHATE) injection 10 mg 12-29 01:15: 00 12-29 01:15 :00 No 10mg 10 mg, Intramuscu lar, ONCE, 1 dose, Mon12/28/20 at 2015, STAT [facility] ketorolac (TORADOL) injection 30 mg 12-29 01:15: 00 12-29 00:22 :00 No 30mg 30 mg, Intramuscu lar, ONCE, 1 dose, Mon12/28/20 at 2014, SHEBA
[facility] : GENO VILLALOBOS [facility] ibuprofen 600 mg tablet 12-28 00:00: 00 Yes [id number] 600mg Take 1 tablet by mouth every 6 (six) hours as needed for Pain (scale 4-6). [facility] ibuprofen 600 mg tablet 12-28 00:00: 00 Yes [id number] 600mg Take 1 tablet by mouth every 6 (six) hours as needed for Pain (scale 4-6). [facility] ibuprofen 600 mg tablet 12-28 00:00: 00 Yes [id number] 600mg Take 1 tablet by mouth every 6 (six) hours as needed for Pain (scale 4-6). [facility] ibuprofen 600 mg tablet 12-28 00:00: 00 Yes [id number] 600mg Take 1 tablet by mouth every 6 (six) hours as needed for Pain (scale 4-6). [facility] ibuprofen 600 mg tablet 12-28 00:00: 00 Yes [id number] 600mg Take 1 tablet by mouth every 6 (six) hours as needed for Pain (scale 4-6). [facility] ibuprofen 600 mg tablet 12-28 00:00: 00 Yes [id number] 600mg Take 1 tablet by mouth every 6 (six) hours as needed for Pain (scale 4-6). [facility] ibuprofen 600 mg tablet 12-28 00:00: 00 Yes [id number] 600mg Take 1 tablet by mouth every 6 (six) hours as needed for Pain (scale 4-6). [facility] ibuprofen 600 mg tablet 12-28 00:00: 00 Yes [id number] 600mg Take 1 tablet by mouth every 6 (six) hours as needed for Pain (scale 4-6). [facility] cephALEXin 500 mg capsule 12-28 00:00: 00 01-05 04:59 :00 No [id number] 500mg Take 1 capsule by mouth 4 (four) times daily for 7 days. [facility] KCL (KLOR-CON M20) tablet 40 mEq 11-25 23:00: 00 11-25 22:04 :00 No 40meq 40 mEq, Oral, ONCE, 1 dose, Mon11/25/20 at 1800, SHEBA [facility] aspirin tablet 325 mg 11-25 21:30: 00 11-25 20:34 :00 No 325mg 325 mg, Oral, ONCE, 1 dose, Mon11/25/20 at 1630, STAT [facility] albuterol (PROAIR HFA) 90 mcg/actuati on inhaler 10-12 14:52: 08 Yes 2{puff} Inhale 2 Puffs every 6 (six) hours as needed. [facility] ibuprofen (MOTRIN) 800 mg tablet 10-12 14:52: 08 Yes 800mg Take 800 mg by mouth every 6 (six) hours as needed. [facility] albuterol (PROAIR HFA) 90 mcg/actuati on inhaler 10-12 14:52: 08 Yes 2{puff} Inhale 2 Puffs every 6 (six) hours as needed. [facility] ibuprofen (MOTRIN) 800 mg tablet 10-12 14:52: 08 Yes 800mg Take 800 mg by mouth every 6 (six) hours as needed. [facility] ity [facility] albuterol (PROAIR HFA) 90 mcg/actuati on inhaler 10-12 14:52: 08 Yes 2{puff} Inhale 2 Puffs every 6 (six) hours as needed. [facility] ibuprofen (MOTRIN) 800 mg tablet 10-12 14:52: 08 Yes 800mg Take 800 mg by mouth every 6 (six) hours as needed. [facility] ity of [facility] albuterol (PROAIR HFA) 90 mcg/actuati on inhaler 10-12 14:52: 08 Yes 2{puff} Inhale 2 Puffs every 6 (six) hours as needed. [facility] ity [facility] ibuprofen (MOTRIN) 800 mg tablet 10-12 14:52: 08 Yes 800mg Take 800 mg by mouth every 6 (six) hours as needed. [facility] it[facility] albuterol (PROAIR HFA) 90 mcg/actuati on inhaler 10-12 14:52: 08 Yes 2{puff} Inhale 2 Puffs every 6 (six) hours as needed. [facility] it[facility] ibuprofen (MOTRIN) 800 mg tablet 10-12 14:52: 08 Yes 800mg Take 800 mg by mouth every 6 (six) hours as needed. [facility] it[facility] albuterol (PROAIR HFA) 90 mcg/actuati on inhaler 10-12 14:52: 08 Yes 2{puff} Inhale 2 Puffs every 6 (six) hours as needed. [facility] ibuprofen (MOTRIN) 800 mg tablet 10-12 14:52: 08 Yes 800mg Take 800 mg by mouth every 6 (six) hours as needed. [facility] albuterol (PROAIR HFA) 90 mcg/actuati on inhaler 10-12 14:52: 08 Yes 2{puff} Inhale 2 Puffs every 6 (six) hours as needed. [facility] ibuprofen (MOTRIN) 800 mg tablet 10-12 14:52: 08 Yes 800mg Take 800 mg by mouth every 6 (six) hours as needed. [facility] albuterol (PROAIR HFA) 90 mcg/actuati on inhaler 10-12 14:52: 08 Yes 2{puff} Inhale 2 Puffs every 6 (six) hours as needed. [facility] ibuprofen (MOTRIN) 800 mg tablet 10-12 14:52: 08 Yes 800mg Take 800 mg by mouth every 6 (six) hours as needed. [facility] albuterol (PROAIR HFA) 90 mcg/actuati on inhaler 10-12 08:52: 08 Yes 2{puff} Inhale 2 Puffs every 6 (six) hours as needed. [facility] ibuprofen (MOTRIN) 800 mg tablet 10-12 08:52: 08 Yes 800mg Take 800 mg by mouth every 6 (six) hours as needed. [facility] traMADOL 50 mg tablet 10-12 00:00: 00 Yes 50mg Take 1 tablet by mouth every 6 (six) hours as needed for Pain (scale 4-6). [facility] ciprofloxac in HCl 500 mg tablet 10-12 00:00: 00 Yes 500mg Take 1 tablet by mouth 2 (two) times daily. [facility] metroNIDAZO LE 500 mg tablet 10-12 00:00: 00 Yes 500mg Take 1 tablet by mouth 2 (two) times daily. [facility] diphenoxyla te-atropine (LOMOTIL) 2.5-0.025 mg per tablet 10-12 00:00: 00 Yes 1{tbl} Take 1 tablet by mouth every 6 (six) hours as needed (t). [facility] traMADOL 50 mg tablet 10-12 00:00: 00 Yes 50mg Take 1 tablet by mouth every 6 (six) hours as needed for Pain (scale 4-6). [facility] ciprofloxac in HCl 500 mg tablet 10-12 00:00: 00 Yes 500mg Take 1 tablet by mouth 2 (two) times daily. [facility] metroNIDAZO LE 500 mg tablet 10-12 00:00: 00 Yes 500mg Take 1 tablet by mouth 2 (two) times daily. [facility] diphenoxyla te-atropine (LOMOTIL) 2.5-0.025 mg per tablet 10-12 00:00: 00 Yes 1{tbl} Take 1 tablet by mouth every 6 (six) hours as needed (t). [facility] traMADOL 50 mg tablet 10-12 00:00: 00 Yes 50mg Take 1 tablet by mouth every 6 (six) hours as needed for Pain (scale 4-6). [facility] ciprofloxac in HCl 500 mg tablet 10-12 00:00: 00 Yes 500mg Take 1 tablet by mouth 2 (two) times daily. [facility] metroNIDAZO LE 500 mg tablet 10-12 00:00: 00 Yes 500mg Take 1 tablet by mouth 2 (two) times daily. [facility] diphenoxyla te-atropine (LOMOTIL) 2.5-0.025 mg per tablet 10-12 00:00: 00 Yes 1{tbl} Take 1 tablet by mouth every 6 (six) hours as needed (t). [facility] traMADOL 50 mg tablet 10-12 00:00: 00 Yes 50mg Take 1 tablet by mouth every 6 (six) hours as needed for Pain (scale 4-6). [facility] ciprofloxac in HCl 500 mg tablet 10-12 00:00: 00 Yes 500mg Take 1 tablet by mouth 2 (two) times daily. [facility] metroNIDAZO LE 500 mg tablet 10-12 00:00: 00 Yes 500mg Take 1 tablet by mouth 2 (two) times daily. [facility] diphenoxyla te-atropine (LOMOTIL) 2.5-0.025 mg per tablet 10-12 00:00: 00 Yes 1{tbl} Take 1 tablet by mouth every 6 (six) hours as needed (t). [facility] traMADOL 50 mg tablet 10-12 00:00: 00 Yes 50mg Take 1 tablet by mouth every 6 (six) hours as needed for Pain (scale 4-6). [facility] ciprofloxac in HCl 500 mg tablet 10-12 00:00: 00 Yes 500mg Take 1 tablet by mouth 2 (two) times daily. [facility] metroNIDAZO LE 500 mg tablet 10-12 00:00: 00 Yes 500mg Take 1 tablet by mouth 2 (two) times daily. [facility] diphenoxyla te-atropine (LOMOTIL) 2.5-0.025 mg per tablet 10-12 00:00: 00 Yes 1{tbl} Take 1 tablet by mouth every 6 (six) hours as needed (t). [facility] traMADOL 50 mg tablet 10-12 00:00: 00 Yes 50mg Take 1 tablet by mouth every 6 (six) hours as needed for Pain (scale 4-6). [facility] ciprofloxac in HCl 500 mg tablet 10-12 00:00: 00 Yes 500mg Take 1 tablet by mouth 2 (two) times daily. [facility] metroNIDAZO LE 500 mg tablet 10-12 00:00: 00 Yes 500mg Take 1 tablet by mouth 2 (two) times daily. [facility] diphenoxyla te-atropine (LOMOTIL) 2.5-0.025 mg per tablet 10-12 00:00: 00 Yes 1{tbl} Take 1 tablet by mouth every 6 (six) hours as needed (t). [facility] traMADOL 50 mg tablet 10-12 00:00: 00 Yes 50mg Take 1 tablet by mouth every 6 (six) hours as needed for Pain (scale 4-6). [facility] ciprofloxac in HCl 500 mg tablet 10-12 00:00: 00 Yes 500mg Take 1 tablet by mouth 2 (two) times daily. [facility] metroNIDAZO LE 500 mg tablet 10-12 00:00: 00 Yes 500mg Take 1 tablet by mouth 2 (two) times daily. [facility] diphenoxyla te-atropine (LOMOTIL) 2.5-0.025 mg per tablet 10-12 00:00: 00 Yes 1{tbl} Take 1 tablet by mouth every 6 (six) hours as needed (t). [facility] traMADOL 50 mg tablet 10-12 00:00: 00 Yes 50mg Take 1 tablet by mouth every 6 (six) hours as needed for Pain (scale 4-6). [facility] ciprofloxac in HCl 500 mg tablet 10-12 00:00: 00 Yes 500mg Take 1 tablet by mouth 2 (two) times daily. [facility] metroNIDAZO LE 500 mg tablet 10-12 00:00: 00 Yes 500mg Take 1 tablet by mouth 2 (two) times daily. [facility] diphenoxyla te-atropine (LOMOTIL) 2.5-0.025 mg per tablet 10-12 00:00: 00 Yes 1{tbl} Take 1 tablet by mouth every 6 (six) hours as needed (t). [facility] traMADOL 50 mg tablet 10-12 00:00: 00 Yes 50mg Take 1 tablet by mouth every 6 (six) hours as needed for Pain (scale 4-6). [facility] ciprofloxac in HCl 500 mg tablet 10-12 00:00: 00 Yes 500mg Take 1 tablet by mouth 2 (two) times daily. [facility] metroNIDAZO LE 500 mg tablet 10-12 00:00: 00 Yes 500mg Take 1 tablet by mouth 2 (two) times daily. [facility] diphenoxyla te-atropine (LOMOTIL) 2.5-0.025 mg per tablet 10-12 00:00: 00 Yes 1{tbl} Take 1 tablet by mouth every 6 (six) hours as needed (t). [facility] triamcinolo ne acetonide (KENALOG) 0.1 % ointment 03-21 00:00: 00 Yes [id number] Apply to area(s) 2 (two) times daily. [facility] triamcinolo ne acetonide (KENALOG) 0.1 % ointment 03-21 00:00: 00 Yes [id number] Apply to area(s) 2 (two) times daily. [facility] triamcinolo ne acetonide (KENALOG) 0.1 % ointment 03-21 00:00: 00 Yes [id number] Apply to area(s) 2 (two) times daily. [facility] triamcinolo ne acetonide (KENALOG) 0.1 % ointment 03-21 00:00: 00 Yes [id number] Apply to area(s) 2 (two) times daily. [facility] triamcinolo ne acetonide (KENALOG) 0.1 % ointment 03-21 00:00: 00 Yes [id number] Apply to area(s) 2 (two) times daily. [facility] triamcinolo ne acetonide (KENALOG) 0.1 % ointment 03-21 00:00: 00 Yes [id number] Apply to area(s) 2 (two) times daily. [facility] triamcinolo ne acetonide (KENALOG) 0.1 % ointment 03-21 00:00: 00 Yes [id number] Apply to area(s) 2 (two) times daily. [facility] triamcinolo ne acetonide (KENALOG) 0.1 % ointment 03-21 00:00: 00 Yes [id number] Apply to area(s) 2 (two) times daily. [facility] triamcinolo ne acetonide (KENALOG) 0.1 % ointment 03-21 00:00: 00 Yes [id number] Apply to area(s) 2 (two) times daily. [facility] Vital Signs Vital Name Observation Time Observation Value Comments S ource Systolic blood pressure 2022-06-27 23:00:00 114 mm[Hg] [facility] Diastolic blood pressure 2022-06-27 23:00:00 77 mm[Hg] [facility] Heart rate 2022-06-27 23:00:00 96 /min [facility] Respiratory rate 2022-06-27 23:00:00 16 /min [facility] Oxygen saturation in Arterial blood by Pulse oximetry 2022-06-27 23:00:00 96 /min [facility] Body temperature 2022-06-27 20:29:00 36.61 Jeanette [facility] Body height 2022-06-27 20:29:00 175.3 cm [facility] Body weight 2022-06-27 20:29:00 81.647 kg [facility] BMI 2022-06-27 20:29:00 26.58 kg/m2 [facility] Systolic blood pressure 2021-05-03 17:27:00 127 mm[Hg] [facility] Diastolic blood pressure 2021-05-03 17:27:00 74 mm[Hg] [facility] Heart rate 2021-05-03 17:27:00 94 /min [facility] Body temperature 2021-05-03 17:27:00 37.11 Jeanette [facility] Respiratory rate 2021-05-03 17:27:00 16 /min [facility] Body height 2021-05-03 17:27:00 175.3 cm [facility] Body weight 2021-05-03 17:27:00 68.04 kg [facility] BMI 2021-05-03 17:27:00 22.15 kg/m2 [facility] Oxygen saturation in Arterial blood by Pulse oximetry 2021-05-03 17:27:00 97 /min [facility] Systolic blood pressure 2021-04-22 20:25:00 99 mm[Hg] [facility] Diastolic blood pressure 2021-04-22 20:25:00 64 mm[Hg] [facility] Heart rate 2021-04-22 20:25:00 75 /min [facility] Body temperature 2021-04-22 20:25:00 36.5 Jeanette [facility] Respiratory rate 2021-04-22 20:25:00 17 /min [facility] Oxygen saturation in Arterial blood by Pulse oximetry 2021-04-22 20:25:00 99 /min [facility] Body height 2021-04-22 18:25:00 175.3 cm [facility] Body weight 2021-04-22 18:25:00 84.823 kg [facility] BMI 2021-04-22 18:25:00 27.62 kg/m2 [facility] Systolic blood pressure 2021-04-16 16:16:00 137 mm[Hg] [facility] Diastolic blood pressure 2021-04-16 16:16:00 68 mm[Hg] [facility] Heart rate 2021-04-16 16:16:00 78 /min [facility] Body temperature 2021-04-16 16:16:00 36.83 Jeanette [facility] Respiratory rate 2021-04-16 16:16:00 18 /min [facility] Body height 2021-04-16 16:16:00 175.3 cm [facility] Body weight 2021-04-16 16:16:00 80.74 kg [facility] BMI 2021-04-16 16:16:00 26.29 kg/m2 [facility] Oxygen saturation in Arterial blood by Pulse oximetry 2021-04-16 16:16:00 97 /min [facility] Systolic blood pressure 2020-12-29 00:00:00 123 mm[Hg] [facility] Diastolic blood pressure 2020-12-29 00:00:00 82 mm[Hg] [facility] Heart rate 2020-12-29 00:00:00 77 /min [facility] Respiratory rate 2020-12-29 00:00:00 16 /min [facility] Oxygen saturation in Arterial blood by Pulse oximetry 2020-12-29 00:00:00 99 /min [facility] Body temperature 2020-12-28 20:34:00 37 Jeanette [facility] Body weight 2020-12-28 20:34:00 68.04 kg [facility] BMI 2020-12-28 20:34:00 22.81 kg/m2 [facility] Systolic blood pressure 2020-12-29 00:00:00 123 mm[Hg] [facility] Diastolic blood pressure 2020-12-29 00:00:00 82 mm[Hg] [facility] Heart rate 2020-12-29 00:00:00 77 /min [facility] Respiratory rate 2020-12-29 00:00:00 16 /min [facility] Oxygen saturation in Arterial blood by Pulse oximetry 2020-12-29 00:00:00 99 /min [facility] Body temperature 2020-12-28 20:34:00 37 Jeanette [facility] Body weight 2020-12-28 20:34:00 68.04 kg [facility] BMI 2020-12-28 20:34:00 22.81 kg/m2 [facility] Systolic blood pressure 2020-11-25 22:00:00 125 mm[Hg] [facility] Diastolic blood pressure 2020-11-25 22:00:00 87 mm[Hg] [facility] Heart rate 2020-11-25 22:00:00 89 /min [facility] Respiratory rate 2020-11-25 22:00:00 19 /min [facility] Oxygen saturation in Arterial blood by Pulse oximetry 2020-11-25 22:00:00 96 /min [facility] Body temperature 2020-11-25 20:16:00 36.67 Jeanette [facility] Body weight 2020-11-25 20:16:00 68.04 kg [facility] BMI 2020-11-25 20:16:00 22.81 kg/m2 [facility] Systolic blood pressure 2020-11-25 22:00:00 125 mm[Hg] [facility] Diastolic blood pressure 2020-11-25 22:00:00 87 mm[Hg] [facility] Heart rate 2020-11-25 22:00:00 89 /min General acute hospital Respiratory rate 2020-11-25 22:00:00 19 /min [facility] Oxygen saturation in Arterial blood by Pulse oximetry 2020-11-25 22:00:00 96 /min [facility] Body temperature 2020-11-25 20:16:00 36.67 Jeanette [facility] Body weight 2020-11-25 20:16:00 68.04 kg [facility] BMI 2020-11-25 20:16:00 22.81 kg/m2 [facility] Procedures Procedure Date / Time Performed Performing Clinicia n Source D-DIMER 2022-06-27 22:38:00 Jonathan Somers [facility] LIPASE 2022-06-27 21:15:00 Jonathan Somers [facility] MAGNESIUM 2022-06-27 21:15:00 [facility] TROPONIN I 2022-06-27 21:15:00 [facility] COMP. METABOLIC PANEL ([id number]) 2022-06-27 21:15:00 Jonathan Somers [facility] CBC WITH DIFF 2022-06-27 21:15:00 Jonathan Somers [facility] N-TERMINAL PRO-BNP 2022-06-27 21:15[facility] 2022-06-27 21:00:39 Jonathan Somers [facility] CONSENT/REFUSAL FOR DIAGNOSIS AND TREATMENT 2022-06-27 19:54:43 Doctor Unassigned, [place] [facility] CONSENT/REFUSAL FOR DIAGNOSIS AND TREATMENT 2021-05-03 16:52:48 Doctor Unassigned, [place] [facility] ASSIGNMENT OF BENEFITS 2021-04-16 17:52:37 Docto r Unassigned, [place] [facility] RAPID STREP SCREEN FOR GROUP A 2021-04-16 16:30:00 Mary Beth Santacruz [facility] CONSENT/REFUSAL FOR DIAGNOSIS AND TREATMENT 2021-04-16 15:59:46 Doctor Unassigned, [place] [facility] URINALYSIS 2020-12-29 00:19:00 IdaniaMallikadomenico Thomas Toscano [facility] CONSENT/REFUSAL FOR DIAGNOSIS AND TREATMENT 2020-12-28 20:23:27 Doctor Unassigned, [place] [facility] TROPONIN I 2020-11-25 22:10:00 Huang Garg [facility] XR CHEST 1 VW 2020-11-25 20:46:11 Huang Garg [facility] LIPASE 2020-11-25 20:34:00 [facility] TROPONIN I 2020-11-25 20:34:00 [facility] HEPATIC FUNCTION PANEL ([id number]) (ALB,T.PRO,BILI T,BU/BC,ALT,AST,ALK PHOS) 2020-11-25 20:34:00 [facility] BASIC METABOLIC PANEL (NA, K, CL, CO2, GLUCOSE, BUN, CREATININE, CA) 2020-11-25 20:34:00 [facility] CBC WITH DIFF 2020-11-25 20:34:00 Huang Garg [facility] acute hospital N-TERMINAL PRO-BNP 2020-11-25 20:34:00 [facility] HB ECG ROUTINE & RHYTHM STRIP 2020-11-25 20:22:52 [facility] Encounters Start Date/Time End Date/Time Encounter Type Admission Type Attending Clinicians Care Facility Care Department Encounter ID Source 2021-07-05 19:02:36 Emergency [facility] [id number] [facility] 2021-07-05 15:21:12 Emergency [facility] [id number] [facility] 2021-07-04 15:22:03 Emergency [facility] [id number] [facility] 2022-06-27 15:34:00 2022-06-27 18:56:00 Emergency X JONATHAN SOMERS [facility] ERT [id number] [facility] 2022-06-27 15:34:00 2022-06-27 18:56:00 Emergency Jonathan Somers [facility] [id number] 350.1.13.10 4.2.7.2.686 [id number] [facility] 2021-05-03 12:30:00 2021-05-03 21:32:00 Emergency Sidra Suh Megan R [facility] 1.2.840.114 350.1.13.10 4.2.7.2.686 [id number] [facility] 2021-05-03 00:00:00 2021-05-03 00:00:00 Orders Only Doctor Unassigned, [place] [facility] 1.2.840.114 350.1.13.10 4.2.7.2.686 [id number] [facility] 2021-04-22 12:53:19 2021-04-22 13:53:19 Nurse Visit Therapy, Adc Covid Darrell Lares [facility] 1.840.114 350.1.13.10 4.2.7.2.686 [id number] [facility] 2021-04-22 13:00:00 2021-04-22 13:00:00 Outpatient R DARRELL FRANCOIS [facility] [id number] [facility] 2021-04-16 11:17:00 2021-04-16 13:59:00 Emergency Noam Mary Beth [facility] 1.2840.114 350.1.13.10 4.2.7.2.686 [id number] [id number] [facility] 2020-12-28 17:44:00 2020-12-28 21:05:00 Emergency Geno Villalobos [facility] 1.2840.114 350.1.13.10 4.2.7.2.686 [id number] [facility] 2020-12-28 17:44:00 2020-12-28 21:05:00 Emergency Geno Villalobos [facility] 1.2.840.114 350.1.13.10 4.2.7.2.686 [id number] [id number] 2020-11-25 15:17:00 2020-11-25 17:55:00 Emergency Huang Garg [facility] 1.2.840.114 350.1.13.10 4.2.7.2.686 [id number] [facility] 2020-11-25 15:17:00 2020-11-25 17:55:00 Emergency X HUANG GARG [facility] ERT [id number] [facility] 2020-11-25 15:17:00 2020-11-25 17:55:00 Emergency Huang Garg [facility] 1.2.840.114 350.1.13.10 4.2.7.2.686 [id number] [id number] 2020-04-11 17:34:00 2020-04-14 06:46:16 Inpatient HCAMN VIVIEN [id number] 78 [facility] Results Test Description Test Time Test Comments Results Result Co mments Source [facility] [id number] 21:54:56* Test Item Value Reference Range Interpretation Comments TROPONIN I (test code = 9002288845) 0.003 ng/mL See_Comment [Automated message] The system [...] of biotin. Lab Interpretation (test code = 18502-8) Normal [facility] [id number] 21:51:38* Test Item Value Reference Range Interpretation Comme nts NT-proBNP (test code = 5632192694) 29 pg/mL See_Comment [Automated message] The system which generated this result transmitted reference range: <=125. The reference range was not used to interpret this result as normal/abnormal. LYUDMILA (test code = LYUDMILA) Biotin has been reported to cause a negative bias, interpret results relative to patient's use of biotin. Lab Interpretation (test code = 28559-8) [facility] (76515)2022-06-27 21:43:18* Test Item Value Reference Range Interpretation Comme nts NA (test code = 9688409390) 135 mmol/L 135-145 K (test code = 7329202058) 4.5 mmol/L 3.5-5 CL (test code = 5912097478) 100 mmol/L 98-108 CO2 TOTAL (test code = 4088752699) 25 mmol/L 23-31 AGAP (test code = 2318091283) 2-16 BUN (test code = 4913486399) 10 mg/dL 7-23 GLUCOSE (test code = 0237782298) 91 mg/dL 70-110 CREATININE (test code = 8125587781) 0.75 mg/dL 0.5-1.04 TOTAL BILI (test code = 9680228167) 0.7 mg/dL 0.1-1.1 CALCIUM (test code = 4189104721) 9.9 mg/dL 8.6-10.6 T PROTEIN (test code = 4277389471) 7.9 g/dL 6.3-8.2 ALBUMIN (test code = 5639491025) 4.8 g/dL 3.5-5 ALK PHOS (test code = 4157375223) 78 U/L 34-122 ALTv (test code = 1742-6) 15 U/L 5-35 AST(SGOT) (test code = 7205084383) 24 U/L 13-40 eGFR (test code = 8111487877) mL/min/1.73m2 LYUDMILA (test code = LYUDMILA) Association [...] or urine or abnormalities in imaging tests). [facility] 21:43:18* Test Item Value Reference Range Interpretation Comme nts MAGNESIUM (test code = 2071490298) 2.1 mg/dL 1.7-2.4 Lab Interpretation (test cod e = 79777-2) [facility] 21:42:58* Test Item Value Reference Range Interpretation Comme nts LIPASE (test code = 2100217567) 104 U/L 0-220 Lab Interpretation (test cod e = 39468-4) Normal [facility] WITH [id number] 21:30:16* Test Item Value Reference Range Interpretation Comme nts WBC (test code = 6690-2) See_Comment [Automated messa ge] The system which generated this result transmitted reference range: 4.30 - 11.10 10*3/?L. The reference range was not used to interpret this result as normal/abnormal. RBC (test code = 789-8) See_Comment [Automated Personalinga ge] The system which generated this result [...] g/dL 31.6-35.1 H RDW-SD (test code = 68160-6) 38.7 fL 39-49.9 L RDW-CV (test code = 788-0) 11.5 % 12-15.5 L PLT (test code = 777-3) See_Comment [Automated Personalinga ge] The system which generated this result transmitted reference range: 166 - 358 10*3/?L. The reference range was not used to interpret this result as normal/abnormal. MPV (test code = 92283-1) 8.9 fL 9.5-12.9 L NRBC/100 WBC (test code = 6203469222) See_Comment [Automated Perpetuall ssage] The system which generated this result transmitted reference range: 0.0 - 10.0 /100 WBCs. The reference range was not used to interpret this result as normal/abnormal. NRBC x10^3 (test code = 6475684971) See_Comment [Automated Personalinga ge] The system which generated this result transmitted reference range: 10*3/?L. The reference range was not used to interpret this result as normal/abnormal. GRAN MAT (NEUT) % (test code = 770-8) 68.5 % IMM GRAN % (test code = 9140128545) 0.60 % LYMPH % (test code = 736-9) 21.3 % MONO % (test code = 5905-5) 6.8 % EOS % (test code = 713-8) 2.4 % BASO % (test code = 706-2) 0.4 % GRAN MAT x10^3(ANC) (test code = 4709350740) 6.86 10*3/uL 1.88-7.09 IMM GRAN x10^3 (test code = 5705261882) 0.06 10*3/uL 0-0.06 LYMPH x10^3 (test code = 731-0) 2.13 10*3/uL 1.32-3.29 MONO x10^3 (test code = 742-7) 0.68 10*3/uL 0.33-0.92 EOS x10^3 (test code = 711-2) 0.24 10*3/uL 0.03-0.39 BASO x10^3 (test code = 704-7) 0.04 10*3/uL 0.01-0.07 Lab Interpretation (test code = 48595-0) Abnormal [facility] S[facility] FOR GROUP [id number] 17:16:32* Test Item Value Reference Range Interpretation Comme nts Streptococcus pyogenes (group A) antigen (test code = 84684-6) Negative Negative LYUDMILA (test code = LYUDMILA) Performed on [employer]. Lab Interpretation (test code = 42175-1) Normal [facility]21-[facility]-27 00:53:40* Test Item Value Reference Range Interpretation Comme nts APPEARANCE (test code = 0092462496) Clear Clear COLOR (test code = 6133583151) Straw Yellow A PH (test code = 4382433741) 4.8-8.0 SP GRAVITY (test code = 3129129664) 1.003-1.030 GLU U QUAL (test code = 5525615808) Normal Normal BLOOD (test code = 8666161477) Negative Negative KETONES (test code = 2951508676) Negative Negative PROTEIN (test code = 2887-8) Negative Negative UROBILIN (test code = 7271181093) Normal Normal BILIRUBIN (test code = 4239410586) Negative Negative NITRITE (test code = 4058872027) Negative Negative LEUK ADALI (test code = 8776727283) Negative Negative RBC/HPF (test code = 6327126248) <1 See_Comment [Automated [employer]] The system which generated this result transmitted reference range: 0 - 3 HPF. The reference range was not used to interpret this result as normal/abnormal. WBC/HPF (test code = 3723095820) <1 See_Comment [Automated [employer]] The system which generated this result transmitted reference range: 0 - 5 HPF. The reference range was not used to interpret this result as normal/abnormal. BACTERIA (test code = 7605789641) Negative Negative Lab Interpretation (test code = 77530-0) Abnormal [facility] [id number] 22:39:08* Test Item Value Reference Range Interpretation Comme nts TROPONIN I (test code = 4385788924) 0.000 ng/mL See_Comment [Automated message] The system [...] biotin. ? Lab Interpretation (test code = 29357-2) Normal [facility] [id number] 21:51:20* Test Item Value Reference Range Interpretation Comme nts TROPONIN I (test code = 5781547865) 0.001 ng/mL See_Comment [Automated message] The system [...] biotin. ? Lab Interpretation (test code = 88661-1) Normal [facility] [id number] 21:39:24* Test Item Value Reference Range Interpretation Comme nts NT-proBNP (test code = 1244113442) 18 pg/mL See_Comment [Automated message] The system which generated this result transmitted reference range: <=125. The reference range was not used to interpret this result as normal/abnormal. LYUDMILA (test code = LYUDMILA) Biotin has been reported to cause a negative bias, interpret results relative to patient's use of biotin. Lab Interpretation (test code = 83497-2) Normal [facility] (ALB, T.PRO, BILI T, BU/BC, ALT, AST, ALK PHOS)2020-11-25 21:30:41* Test Item Value Reference Range Interpretation Comme nts TOTAL BILI (test code = 2385911191) 0.5 mg/dL 0.1-1.1 BILI UNCON (test code = 3817119415) 0.4 mg/dL 0.1-1.1 BILI CONJ (test code = 1713473761) 0.0 mg/dL 0.0-0.3 T PROTEIN (test code = 9495871403) 7.2 g/dL 6.3-8.2 ALBUMIN (test code = 5051084817) 4.2 g/dL 3.5-5.0 ALK PHOS (test code = 3392083507) 83 U/L 34-122 ALTv (test code = 1742-6) 15 U/L 5-35 AST(SGOT) (test code = 4791024485) 23 U/L 13-40 Lab Interpretation (test cod e = 18910-3) Normal [facility] Metabolic Panel (NA, K, CL, CO2, GLUCOSE, BUN, CREATININE, CA)2020-11-25 21:30:20* Test Item Value Reference Range Interpretation Comme nts NA (test code = 8800681071) 137 mmol/L 135-145 K (test code = 5680101668) 3.2 mmol/L 3.5-5.0 L CL (test code = 1245414779) 106 mmol/L 98-108 CO2 TOTAL (test code = 6571952800) 23 mmol/L 23-31 AGAP (test code = 8841280852) 2-16 BUN (test code = 2331057920) 4 mg/dL 7-23 L GLUCOSE (test code = 2542684866) 167 mg/dL 70-110 H CREATININE (test code = 6806969549) 0.60 mg/dL 0.50-1.04 CALCIUM (test code = 3412291172) 8.9 mg/dL 8.6-10.6 eGFR Calculation (Non-) (test code = 4908839530) mL/min/1.73m2 eGFR Calculation () (test code = 2911465257) mL/min/1.73m2 LYUDMILA (test code = LYUDMILA) Association [...] imaging tests). Lab Interpretation (test code = 37179-7) Abnormal [facility] Hospital[facility]ase [id number] 21:30:20* Test Item Value Reference Range Interpretation Comme nts LIPASE (test code = 7999419562) 73 U/L 0-220 Lab Interpretation (test cod e = 52371-4) Normal [facility] 1 [id number] 21:02:07No acute cardiopulmonary abnormality. Preliminary Report Dictated [...] fixation of the left humerusis partially visualized. [facility], Radiant Results Inft User - 11/25/2020 [...] reviewed this study and agree with theabove report.[facility] with [id number] 20:57:54* Test Item Value Reference Range Interpretation Comme nts WBC (test code = 6690-2) See_Comment [Automated [employer]] The system which generated this result transmitted reference range: 4.30 - 11.10 10*3/?L. The reference range was not used to interpret this result as normal/abnormal. RBC (test code = 789-8) See_Comment [Automated [employer]] The system which generated this result transmitted [...] 33.7 g/dL 31.6-35.1 RDW-SD (test code = 20917-3) 42.4 fL 39.0-49.9 RDW-CV (test code = 788-0) 12.2 % 12.0-15.5 PLT (test code = 777-3) See_Comment [Automated [employer]] The system which generated this result transmitted reference range: 166 - 358 10*3/?L. The reference range was not used to interpret this result as normal/abnormal. MPV (test code = 26143-0) 8.9 fL 9.5-12.9 L NRBC/100 WBC (test code = 8527869477) See_Comment [Automated me ssage] The system which generated this result transmitted reference range: 0.0 - 10.0 /100 WBCs. The reference range was not used to interpret this result as normal/abnormal. NRBC x10^3 (test code = 9677457602) <0.01 See_Comment [Automated messa ge] The system which generated this result transmitted reference range: 10*3/?L. The reference range was not used to interpret this result as normal/abnormal. GRAN MAT (NEUT) % (test code = 770-8) 68.9 % IMM GRAN % (test code = 5934029905) 0.50 % LYMPH % (test code = 736-9) 22.0 % MONO % (test code = 5905-5) 5.7 % EOS % (test code = 713-8) 2.6 % BASO % (test code = 706-2) 0.3 % GRAN MAT x10^3(ANC) (test code = 2348575401) 4.49 10*3/uL 1.88-7.09 IMM GRAN x10^3 (test code = 5912371220) 0.03 10*3/uL 0.00-0.06 LYMPH x10^3 (test code = 731-0) 1.43 10*3/uL 1.32-3.29 MONO x10^3 (test code = 742-7) 0.37 10*3/uL 0.33-0.92 EOS x10^3 (test code = 711-2) 0.17 10*3/uL 0.03-0.39 BASO x10^3 (test code = 704-7) <0.03 0.01-0.07 Lab Interpretation (test code = 78441-8) Abnormal [facility] [id number] 20:28:00FAX: Ebonie Calvillo MD [place]: [address] St: REG Name: RENEE TAMAYO [facility] : 1980 Age/S: 40/F [address] [facility] Unit: [id number] Loc: E.ERS2 [place], [place] Phys: [place] [id number] Acct:[id number] Dis Date: Status: REG ER PHONE #: [phone] Exam Date: 04/11/20202012 FAX #: [phone] Reason: PAIN EXAMS: CPT CODE: [id number] CT ABD PELVIS W/CONT 18023 LOCATION: T18 EXAM: CT ABDOMEN AND PELVIS [...] (2031 PAGE 1 Signed Report COMPREHENSIVE METABOLIC [id number] 18:37:00* Test Item Value Reference Range Interpretation Comme [...] mg/dl 70.0-110.0 N BLOOD UREA NITROGEN (test co de = BUN) 5 mg/dl 7.0-18.0 L CREATININE [...] 40 Units/L 12.0-78.0 N ALKALINE PHOSPHATASE TOTAL ( test code = ALKP) 90 Units/L 50.0-136.0 N [id number] 18:37:00* Test Item Value Reference Range Interpretation Comme nts LIPASE (test code = LIP) 140 Units/L 65.0-230.0 N [id number] 18:37:00* Test Item Value Reference Range Interpretation Comme nts ALCOHOL (test code = ALC) 0.00 gm/dL 0.00-0.00 N ETHYL ALCOHOL ALEX WREN - INTERPRETATION: 0.050 GM/DL - NOT INTOXICATED 0.100 GM/DL - INTOXICATED 0.350-0.450 GM/DL - SEVERELY INTOXICATED 0.550 GM/DL- FATAL INTOXICATION DRUGS OF ABUSE SCREEN [id number] 18:33:00* Test Item Value Reference Range Interpretation Comme nts URN COCAINE (test code = COCAURN) NEGATIVE NEGATIVE Cocaine cut-off concentration: 300 ng/mL URN CANNABINOIDS (test code = CANNABURN) NEGATIVE NEGATIVE Cannabinoids c ut-off concentration: 50 ng/mL URN AMPHETAMINE (test code = AMPHETURN) NEGATIVE NEGATIVE Amphetamine cu t-off concentration: 1000 ng/mL URN BARBITURATE (test code = BARBITURN) NEGATIVE NEGATIVE Barbiturate cu t-off concentration: 200 ng/mL URN BENZODIAZEPINE (test code = BENZOURN) NEGATIVE NEGATIVE Benzodiaz epine cut-off concentration: 200 ng/mL URN OPIATES (test code = OPIATURN) NEGATIVE NEGATIVE Opiates cut-off concentration: 200 ng/mL URN PHENCYCLIDINE (PCP) (test code = PHENCURN) NEGATIVE NEGATIVE Phencycli dine(PCP) cut-off concentration: 25 ng/ml URN METHADONE (test code = METHAURN) NEGATIVE NEGATIVE URINALYSIS [id number] 18:32:00* Test Item Value Reference Range Interpretation Comme nts UA COLOR (test code = COLU) STRAW UA APPEARANCE (test code = APPU) CLEAR UA GLUCOSE DIPSTICK (test code = DGLUU) NORMAL mg/dl NORMAL UA BILIRUBIN DIPSTICK (test code = BILU) NEGATIVE mg/dL NEGATIVE UA KETONE DIPSTICK (test code = KETU) NEGATIVE mg/dl NEGATIVE UA SPECIFIC GRAVITY (test code = SGU) 1.010 1.000-1.030 UA BLOOD DIPSTICK (test code = CLARIBEL) NEGATIVE Selvin/micL NEGATIVE UA PH DIPSTICK (test code = VIRI) 6.5 5.0-9.0 UA PROTEIN DIPSTICK (test code = PROU) NEGATIVE mg/dl NEGATIVE UA UROBILINIOGEN DIPSTICK (test code = URO) NORMAL mg/dl NORMAL UA NITRITE DIPSTICK (test code = MARCK) NEGATIVE NEGATIVE UA LEUKOCYTE ESTERASE DIPSTICK (test code = LEUU) NEGATIVE Victor Manuel/micL NEGATIVE UA WBC (test code = WBCU) 0-3 WBC/HPF NONE UA RBC (test code = RBCU) 0-2 RBC/HPF 0-3 UA EPITHELIAL CELLS (test code = EPIU) 0-3 EPI/HPF 0-3 UA BACTERIA (test code = BACU) TRACE NONE UR HCG [id number] 18:32:00* Test Item Value Reference Range Interpretation Comme nts UR HCG QUAL (test code = HCGQLU) NEGATIVE NEGATIVE URINALYSIS [id number] 18:31:00* Test Item Value Reference Range Interpretation Comme nts UA COLOR (test code = COLU) STRAW UA APPEARANCE (test code = APPU) CLEAR UA GLUCOSE DIPSTICK (test code = DGLUU) NORMAL mg/dl NORMAL UA BILIRUBIN DIPSTICK (test code = BILU) NEGATIVE mg/dL NEGATIVE UA KETONE DIPSTICK (test code = KETU) NEGATIVE mg/dl NEGATIVE UA SPECIFIC GRAVITY (test code = SGU) 1.010 1.000-1.030 UA BLOOD DIPSTICK (test code = CLARIBEL) NEGATIVE Selvin/micL NEGATIVE UA PH DIPSTICK (test code = VIRI) 6.5 5.0-9.0 UA PROTEIN DIPSTICK (test code = PROU) NEGATIVE mg/dl NEGATIVE UA UROBILINIOGEN DIPSTICK (test code = URO) NORMAL mg/dl NORMAL UA NITRITE DIPSTICK (test code = MARCK) NEGATIVE NEGATIVE UA LEUKOCYTE ESTERASE DIPSTICK (test code = LEUU) NEGATIVE Victor Manuel/micL NEGATIVE UA WBC (test code = WBCU) WBC/HPF NONE UA RBC (test code = RBCU) RBC/HPF 0-3 UA EPITHELIAL CELLS (test code = EPIU) EPI/HPF 0-3 UA BACTERIA (test code = BACU) NONE UR HCG [id number] 18:31:00* Test Item Value Reference Range Interpretation Comme nts UR HCG QUAL (test code = HCGQLU) NEGATIVE COMPREHENSIVE METABOLIC [id number] 18:27:00* Test Item Value Reference Range Interpretation Comme [...] GLU) mg/dl 70.0-110.0 BLOOD UREA NITROGEN (test co de = BUN) mg/dl 7.0-18.0 CREATININE (test code = CREAT) mg/dL 0.60-1.30 GFR NON BLACK (test code = GFRNONBLACK) mL/min 105-110 GFR BLACK (test code = GFRBLACK) mL/min 127-133 TOTAL PROTEIN (test code = PROT) gm/dL 6.4-8.2 ALBUMIN (test code = ALB) gm/dl 3.2-4.7 CALCIUM (test code = CA) mg/dl 8.0-10.5 BILIRUBIN TOTAL (test code = BILT) mg/dl 0.0-1.0 SGOT/AST (test code = AST) Units/L 15.0-37.0 SGPT/ALT (test code = ALT) Units/L 12.0-78.0 ALKALINE PHOSPHATASE TOTAL ( test code = ALKP) Units/L 50.0-136.0 [id number] 18:27:00* Test Item Value Reference Range Interpretation Comme nts LIPASE (test code = LIP) Units/L 65.0-230.0 [id number] 18:27:00* Test Item Value Reference Range Interpretation Comme nts ALCOHOL (test code = ALC) gm/dL 0.00-0.00 CBC W/AUTO [id number] 18:16:00* Test Item Value Reference Range Interpretation Comme nts WHITE BLOOD CELL (test code = WBC) 8.9 K/mm3 4.5-11.0 N RED BLOOD CELL (test code = RBC) 4.19 M/mm3 3.80-5.20 N HEMOGLOBIN (test code = HGB) 14.0 gm/dL 12.0-16.0 N HEMATOCRIT (test code = HCT) 40.8 % 36.0-48.0 N MEAN CELL VOLUME (test code = MCV) 97.4 UM3 82.0-99.0 N MEAN CELL HGB (test code = MCH) 33.4 UUG 25.5-32.5 H MEAN CELL HGB CONCETRATION (test code = MCHC) 34.3 gm/dL 29.0-35.5 N RED CELL DISTRIBUTION WIDTH (test code = RDW) 12.6 % 11.5-15.0 N RED CELL DISTRIBUTION WIDTH SD (test code = RDW-SD) 44.7 fL 34.8-50.2 N PLATELET COUNT (test code = PLT) 241 K/mm3 150-400 N MEAN PLATELET VOLUME (test c ode = MPV) 9.1 fl 7.4-10.4 N NEUTROPHIL % (test code = NT%) 61.9 % 49.0-76.0 N IMMATURE GRANULOCYTE % (test code = IG%) 0.5 % 0.0-0.4 H LYMPHOCYTE % (test code = LY%) 25.9 % 23.0-38.0 N MONOCYTE % (test code = MO%) 6.1 % 1.0-10.0 N EOSINOPHIL % (test code = EO%) 5.0 % 1.0-5.0 N BASOPHIL % (test code = BA%) 0.6 % 0.0-1.0 N NEUTROPHIL # (test code = NT#) 5.5 K/mm3 2.4-6.3 N IMMATURE GRANULOCYTE # (test code = IG#) 0.04 x10 3/uL 0.00-0.07 N LYMPHOCYTE # (test code = LY#) 2.3 K/mm3 1.2-4.0 N MONOCYTE # (test code = MO#) 0.5 K/mm3 0.0-0.6 N EOSINOPHIL # (test code = EO#) 0.4 K/MM3 0.0-0.7 N BASOPHIL # (test code = BA#) 0.1 K/mm3 0.0-0.2 N Notes Date/Time Note Provider Source 2020-04-11 18:25:00 [id number] 5:00 [facility] ([facility])EMERGENCY PROVIDER REPORTREPORT#:[id number] REPORT STATUS: SignedDATE:04/11/20 TIME: 1824 PATIENT: RENEE TAMAYO UNIT #: [id number]#: [id number] ROOM/BED:AGE: 40 SEX: F PCP PHYS: No Primary or Family PhysicianSERVICE AUTHOR: Ebonie Parry MD * ALL edits or amendments must be made on the electronic/computer document * HPI-Abd Pain F Under 40 GeneralConfirmed Patient YesInitial Greet Date/Time 04/11/20 1739 PresentationChief Complaint Abdominal pain Free Text HPI NotesFree Text HPI [id number] white female with PMH of asthma and depression brought in by EMS with complaint of 10/10 lower abdominal cramping x 30 minutes. LMP 03/29/2020. Patient denies dysuria, cough, nausea, vomiting, diarrhea or fever. Patient didnot receive any medication in route. Vital signs were stable in transport. Risk-Abd Pain F Under 40)( Ectopic Risk factors reviewed Review of Systems Free Text ROS NotesFree Text ROS NotesConstitutional: Denies fever, denies chills, denies generalized weaknessENT: Denies nasal congestion, denies sore throatRespiratory: Denies cough, denies dyspnea on exertion, denies shortness of breath, denies wheezingCardiovascular: Denies chest pain, denies LALA, denies edema, denies orthopnea, denies palpitations, denies syncopeABD: + abdominal pain, denies nausea, vomiting, or diarrhea.Musculoskeletal: Denies back pain, denies extremity pain, denies extremity swelling, denies joint pain, denies joint swelling, denies neck painSkin: Denies laceration, denies rash, denies abrasion, denies abscess, denies erythemaNeurologic: Denies headache, denies focal weakness, denies dizziness, denies LOC, denies altered mental status, denies slurred speech, denies lightheadedness, denies syncope Past Medical History - AdultStated Complaint LOWER ABD PAINAllergiesCoded Allergies:No Known Allergies (04/11/20) Home MedicationsReported MedicationsDULoxetine DR (CYMBALTA) 30 MG PO DAILY busPIRone (BUSPAR) 5 MG PO BID ALBUTEROL (PROAIR HFA 90 MCG/ACT 8.5 GM) 1 PUFF INH RTQ6H Past Medical History:Reports: Asthma, Depression/mood disorder. Past Surgical History:Reports: Bilateral tubal ligation. Smoking status for patients 13 years old or older: Current every day smoker Physical Exam Vital SignsVital SignsFirst Documented: Result Date Time Pulse Ox 98 04/11 1734 B/P 130/75 04/11 1734 B/P Mean 93 04/11 1734 O2 Delivery Room air 04/11 1734 Temp 36.7 04/11 1734 Pulse 88 04/11 1734 Resp 20 04/11 1734 Last Documented: Result Date Time Pulse Ox 98 04/11 2130 B/P 102/66 04/11 2130 B/P Mean 78 04/11 2130 Pulse 83 04/11 2130 Resp 18 04/11 2130 O2 Delivery Room air 04/11 2039 Temp 36.9 04/11 2039 Review of Vital Signs Reviewed Free Text PE NotesFree Text PE NotesGEN: Well-appearing/NAD, awake, alert, not toxic appearing, cooperativeHead: Atraumatic/normocephalic Eyes: PERRLA, conjunctiva clear, EOMI, no nystagmusENT: Atraumatic, airway patent, mucous membranes moist, pharynx normalNeck: Supple, no meningismus, full range of motion, no adenopathy, no midline vertebral tenderness, no tracheal deviationRESP: No respiratory distress, atraumatic, no rales, no rhonchi, no wheezing, noretractionsCV: Heart rate normal, regular rhythm, no gallop, no murmurs, no rubsABD: Atraumatic, soft, nontender, no guarding, no rebound, no distentionEXT: No gross abnormalitiesSkin: Atraumatic, color normal, no rash, warm, dry, turgor normal, no swellingNeuro: Oriented x3, speech normal, no motor deficits, no sensory deficits, CN II- XII grossly intactPsych: Normal thought content Interpretation Diagnostics Lab Results InterpretationResultsLaboratory Tests 04/11/201756:[Embedded Image Not Available]Laboratory Tests: 04/11 Chemistry Sodium (134.0 - 147.0 mmol/l) 137 Potassium (3.6 - 5.2 mmol/L) 4.6 Chloride (98.0 - 107.0 mmol/l) 101 Carbon Dioxide (21.0 - 33.0 mmol/l) 28.3 Anion Gap (0 - 20) 12.3 BUN (7.0 - 18.0 mg/dl) 5 L Creatinine (0.60 - 1.30 mg/dL) 0.89 Est GFR ( Amer) (127 - 133 mL/min) 91 L Est GFR (Non-Af Amer) (105 - 110 mL/min) 75 L Glucose (70.0 - 110.0 mg/dl) 91 Calcium (8.0 - 10.5 mg/dl) 9.3 Total Bilirubin (0.0 - 1.0 mg/dl) 0.3 AST (15.0 - 37.0 Units/L) 36 ALT (12.0 - 78.0 Units/L) 40 Total Alk Phosphatase (50.0 - 136.0 Units/L) 90 Total Protein (6.4 - 8.2 gm/dL) 7.4 Albumin (3.2 - 4.7 gm/dl) 3.6 Lipase (65.0 - 230.0 Units/L) 140 Hematology WBC (4.5 - 11.0 K/mm3) 8.9 RBC (3.80 - 5.20 M/mm3) 4.19 Hgb (12.0 - 16.0 gm/dL) 14.0 Hct (36.0 - 48.0 %) 40.8 MCV (82.0 - 99.0 UM3) 97.4 MCH (25.5 - 32.5 UUG) 33.4 H MCHC (29.0 - 35.5 gm/dL) 34.3 RDW (11.5 - 15.0 %) 12.6 Plt Count (150 - 400 K/mm3) 241 MPV (7.4 - 10.4 fl) 9.1 Neut % (Auto) (49.0 - 76.0 %) 61.9 Lymph % (Auto) (23.0 - 38.0 %) 25.9 [place] % (Auto) (1.0 - 10.0 %) 6.1 Eos % (Auto) (1.0 - 5.0 %) 5.0 Baso % (Auto) (0.0 - 1.0 %) 0.6 Neut # (Auto) (2.4 - 6.3 K/mm3) 5.5 Lymph # (Auto) (1.2 - 4.0 K/mm3) 2.3 [place] # (Auto) (0.0 - 0.6 K/mm3) 0.5 Eos # (Auto) (0.0 - 0.7 K/MM3) 0.4 Baso # (Auto) (0.0 - 0.2 K/mm3) 0.1 Immature Gran % (0.0 - 0.4 %) 0.5 H Immature Gran # (0.00 - 0.07 x10 3/uL) 0.04 Toxicology Urine Opiates Screen (NEGATIVE) NEGATIVE Urine Methadone Screen (NEGATIVE) NEGATIVE Urine Barbiturates (NEGATIVE) NEGATIVE Ur Phencyclidine Scrn (NEGATIVE) NEGATIVE Ur Amphetamines Screen (NEGATIVE) NEGATIVE U Benzodiazepines Scrn (NEGATIVE) NEGATIVE Urine Cocaine Screen (NEGATIVE) NEGATIVE Urine Cannabinoids (NEGATIVE) NEGATIVE Ethyl Alcohol (0.00 - 0.00 gm/dL) 0.00 Urines Urine Color STRAW Urine Appearance CLEAR Urine pH (5.0 - 9.0) 6.5 Ur Specific [place] (1.000 - 1.030) 1.010 Urine Protein (NEGATIVE mg/dl) NEGATIVE Urine Glucose (UA) (NORMAL mg/dl) NORMAL Urine Ketones (NEGATIVE mg/dl) NEGATIVE Urine Blood (NEGATIVE Selvin/micL) NEGATIVE Urine Nitrite (NEGATIVE) NEGATIVE Urine Bilirubin (NEGATIVE mg/dL) NEGATIVE Urine Urobilinogen (NORMAL mg/dl) NORMAL Ur Leukocyte Esterase (NEGATIVE Victor Manuel/micL) NEGATIVE Urine RBC (0 - 3 RBC/HPF) 0-2 Urine WBC (NONE WBC/HPF) 0-3 Ur Epithelial Cells (0 - 3 EPI/HPF) 0-3 Urine Bacteria (NONE) TRACE Urine HCG, Qual (NEGATIVE) NEGATIVE Recent Impressions:CAT SCAN - CT ABD PELVIS W/CONT 04/11 2000 Report Impression - Status: SIGNED Entered: 04/11/20202031 IMPRESSION: Fatty liver. Normal appendix. No bowel obstruction. Nodiverticulosis or evidence of colitis.Impression By: [email or web address] - Kip Jeffery M.D. Re-Evaluation [facility] )( Re-Evaluation/Progress #1Text/Dict NotePatient states that she continues to have abdominal pain even after getting medication. Will CT scan.Time of Re-Eval 1954)( Re-Eval Status Unchanged Re-Evaluation/Progress #2Text/Dict NoteDiscussed test results with patient. Advised patient to follow-up with PCP and advised patient return to ED if condition worsens. Patient has remained medically stable during the ER visit.Time of Eval 2099Re-Eval Status Improved ED CourseMedication(s) OrderedMedication(s) Ordered:Autonomic Drugs Sig/Alex Start time Last Medication Dose Route Stop Time Status Admin Dicyclomine HCl 20 MG X1ED STA 04/11 1747 DC 04/11 PO 04/11 1748 1815 Diagnostic Agents Sig/Alex Start time Last Medication Dose Route Stop Time Status Admin Iopamidol 0 .STK-MED ONE 04/11 2001 DC 04/11 IV 2007 Electrolytic, Caloric, And Graham Sig/Alex Start time Last Medication Dose Route Stop Time Status Admin Sodium Chloride 1,000 ML X1ED STA 04/11 2009 DC 04/11 IV 04/11 2108 204 Patient Discharge Departure Vital Signs/ConditionVital SignsFirst Documented: Result Date Time Pulse Ox 98 04/11 1734 B/P 130/75 04/11 1734 B/P Mean 93 04/11 1734 O2 Delivery Room air 04/11 1734 Temp 36.7 04/11 1734 Pulse 88 04/11 1734 Resp 20 04/11 1734 Last Documented: Result Date Time Pulse Ox 98 04/11 2130 B/P 102/66 04/11 2130 B/P Mean 78 04/11 2130 Pulse 83 04/11 2130 Resp 18 04/11 2130 O2 Delivery Room air 04/11 2039 Temp 36.9 04/11 203 All vital signs available at the time of this entry have been reviewed. Condition Stable Clinical ImpressionClinical ImpressionPrimary Impression: Abdominal pain Disposition DecisionDischarge )( Discharged to Home Yes )( Time 2100 )( Date 04/11/20 Discharge/Care PlanPrescriptionsNAPROSYN, BENTYLReferralsNo Primary or Family Physician (PCP/Family) at 1555RPT #:[id number] OF REPORTEDEmergency department [id number] ilable for patient [id number] HCAMN"
--- NOTE | 2023-10-10 12:50 | RAD REPORT ---
EXAM DESCRIPTION: RAD - Chest Pa And Lat (2 Views) - 10/10/2023 12:43 pm CLINICAL HISTORY: COUGH Chest pain. COMPARISON: <Comparisons> FINDINGS: The lungs are clear. The heart is normal in size. No displaced fractures. IMPRESSION: No acute or concerning finding suspected.
[2023-10-10 12:56] LABS: SARS-CoV-2 Antigen Rapid Res Negative (Negative)
--- NOTE | 2023-10-10 14:26 | EDPHYS ---
Physician Documentation [facility] Name: Susana Florez Age: 43 yrs Sex: Female : 1980 Arrival Date: 10/10/2023 Time: 11:51 Bed 10 Private MD: CALVIN Physician Piero Velasquez HPI: 10/10 14:17 This 43 yrs old Female presents to ER via Ambulatory with complaints of ryann Congestion, Body aches. 14:17 The patient has shortness of breath at rest. Onset: The symptoms/episode began/occurred ryann 3 day(s) ago. Duration: The symptoms are continuous, and are steadily getting worse. The patient's shortness of breath is aggravated by coughing, exertion, light activity, is alleviated by elevating head, nebulizer treatment, rest, sitting up. The patient or guardian reports cough, described as mild, difficulty breathing, flu symptoms, arthralgias, low-grade fever, myalgias. Modifying factors: The symptoms are alleviated by nothing. the symptoms are aggravated by activity, lying flat. Associated signs and symptoms: Pertinent positives: non-productive cough. 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 - Social history:: Smoking status: Patient reports the use of cigarette tobacco products, smokes one-half pack cigarettes per day, Reported history of juuling and/or vaping. - Family history:: not pertinent. ROS: 14:17 Constitutional: Negative for fever, chills, and weight loss, Eyes: Negative for injury, ryann pain, redness, and discharge, ENT: Negative for injury, pain, and discharge, Neck: Negative for injury, pain, and swelling, Cardiovascular: Negative for chest pain, palpitations, and edema, Abdomen/GI: Negative for abdominal pain, nausea, vomiting, diarrhea, and constipation, Back: Negative for injury and pain, : Negative for injury, bleeding, discharge, and swelling, MS/Extremity: Negative for injury and deformity, Skin: Negative for injury, rash, and discoloration, Neuro: Negative for headache, weakness, numbness, tingling, and seizure, Psych: Negative for depression, anxiety, suicide ideation, homicidal ideation, and hallucinations, Allergy/Immunology: Negative for hives, rash, and allergies, Endocrine: Negative for neck swelling, polydipsia, polyuria, polyphagia, and marked weight changes, Hematologic/Lymphatic: Negative for swollen nodes, abnormal bleeding, and unusual bruising, 14:17 Respiratory: Positive for cough, wheezing, expiratory, 14:17 MS/extremity: Negative for acute changes, injury or acute deformity, abrasion, decreased range of motion, swelling, tenderness, Exam: 14:17 Constitutional: This is a well developed, well nourished patient who is awake, alert, ryann and in no acute distress. Head/Face: Normocephalic, atraumatic. Eyes: Pupils equal round and reactive to light, extra-ocular motions intact. Lids and lashes normal. Conjunctiva and sclera are non-icteric and not injected. Cornea within normal limits. Periorbital areas with no swelling, redness, or edema. ENT: Nares patent. No nasal discharge, no septal abnormalities noted. Tympanic membranes are normal and external auditory canals are clear. Oropharynx with no redness, swelling, or masses, exudates, or evidence of obstruction, uvula midline. Mucous membranes moist. Neck: Trachea midline, no thyromegaly or masses palpated, and no cervical lymphadenopathy. Supple, full range of motion without nuchal rigidity, or vertebral point tenderness. No Meningismus. Chest/axilla: Normal chest wall appearance and motion. Nontender with no deformity. No lesions are appreciated. Cardiovascular: Regular rate and rhythm with a normal S1 and S2. No gallops, murmurs, or rubs. Normal PMI, no JVD. No pulse deficits. Abdomen/GI: Soft, non-tender, with normal bowel sounds. No distension or tympany. No guarding or rebound. No evidence of tenderness throughout. Back: No spinal tenderness. No costovertebral tenderness. Full range of motion. Skin: Warm, dry with normal turgor. Normal color with no rashes, no lesions, and no evidence of cellulitis. MS/ Extremity: Pulses equal, no cyanosis. Neurovascular intact. Full, normal range of motion. Neuro: Awake and alert, GCS 15, oriented to person, place, time, and situation. Cranial nerves II-XII grossly intact. Motor strength 5/5 in all extremities. Sensory grossly intact. Cerebellar exam normal. Normal gait. Psych: Awake, alert, with orientation to person, place and time. Behavior, mood, and affect are within normal limits. 14:17 Respiratory: mild respiratory distress is noted, Respirations: labored breathing, that is mild, Breath sounds: bronchial sounds, that are mild, are scattered, decreased breath sounds, that are mild, are scattered, rhonchi, that are mild, are scattered, wheezing: expiratory is heard diffusely, Vital Signs: 12:00 BP 123 / 98; Pulse 101; Resp 19; Temp 99; Pulse Ox 99% ; Weight 68.04 kg; Height 5 ft. ap3 9 in. ; Pain 8/10; 15:30 BP 123 / 68; Pulse 88; Resp 18; Pulse Ox 97% on R/A; ap3 12:00 Body Mass Index 22.15 (68.04 kg, 175.26 cm) ap3 12:00 Pain Scale: Adult ap3 MDM: 12:07 Patient medically screened. [facility] 14:21 Differential diagnosis: Anxiety Reaction asthma, Bronchitis CHF exacerbation, flu, URI, ryann pneumonia, pulmonary edema. Antibiotic administration: The patient is discharged and will get outpatient antibiotics, Zithromax. Differential Diagnosis: Obstructed Airway Bronchitis Influenza Upper Respiratory Infection Pharyngitis Asthma Exacerbation Viral Syndrome Pneumonia. Immunization status:. Data reviewed: vital signs, nurses notes, lab test result(s), Flu: radiologic studies. Consideration of Admission/Observation Escalation of care including admission/observation considered. I considered the following discharge prescriptions or medication management in the emergency department Medications were administered in the Emergency Department. See MAR. Test considered but Not performed: Labs: no labs. Historians other than the Patient: pt well informed. Care significantly affected by the following chronic conditions: Obesity, anxiety, asthma, depression, migraine. Counseling: I had a detailed discussion with the patient and/or guardian regarding the historical points, exam findings, and any diagnostic results supporting the discharge/admit diagnosis, lab results, radiology results, the need for outpatient follow up, a family practitioner, a assisted sales representative. 10/10 12:09 Order name: Flu; Complete Time: 14:13 ryann 10/10 12:09 Order name: SARS RAPID; Complete Time: 14:13 [facility] 10/10 12:09 Order name: Strep ryann 10/10 12:59 Order name: Throat Culture EDID 10/10 12:09 Order name: Chest Pa And Lat (2 Views) XRAY; Complete Time: 14:13 ryann Administered Medications: 12:21 Drug: Acetaminophen PO 650 mg PO once Route: PO; ll1 15:31 Follow up: Response: No adverse reaction; Pain is decreased ap3 12:21 Drug: AZITHromycin PO 500 mg PO once Route: PO; ll1 15:31 Follow up: Response: No adverse reaction ap3 12:45 Drug: predniSONE PO 60 mg PO once Route: PO; kc6 15:31 Follow up: Response: No adverse reaction ap3 12:45 Drug: Levalbuterol Inhalation 2.5 mg Inhalation once Route: Inhalation; kc6 15:31 Follow up: Response: No adverse reaction ap3 12:46 Drug: Ipratropium Inhalation Aerosol 0.5 mg Inhalation once Route: Inhalation; kc6 15:31 Follow up: Response: No adverse reaction ap3 14:39 Drug: Levalbuterol Inhalation 1.25 mg Inhalation once Route: Inhalation; kc6 15:32 Follow up: Response: No adverse reaction ap3 Disposition Summary: 10/10/23 14:26 Discharge Ordered Notes: Location: Home ryann Problem: new ryann Symptoms: have improved ryann Condition: Stable ryann Diagnosis - Acute upper respiratory infection, unspecified ryann - Moderate persistent asthma ryann - Tobacco abuse counseling ryann - Tobacco use ryann Followup: ryann - With: Private Physician - When: 2 - 3 days - Reason: Recheck today's complaints, Continuance of care, Re-evaluation by your physician Followup: ryann - With: Mata Torres MD - When: 2 - 3 days - Reason: Recheck today's complaints, Re-evaluation by your physician Discharge Instructions: - Discharge Summary Sheet ryann - Steps to Quit Smoking ryann - Health Risks of Smoking ryann - Upper Respiratory Infection, Adult ryann - Cool Mist Vaporizer ryann - Upper Respiratory Infection, Adult, [id number]-bh-Zika ryann - Steps to Quit Smoking, [id number]-Fdte ryann - Cough, Adult, Kgdq-go-Aoos ryann - Cough, Adult ryann - Managing the Challenge of Quitting Smoking ryann Forms: - Medication Reconciliation Form ryann - Thank You Letter ryann - Antibiotic Education ryann - Prescription Opioid Use ryann - Patient Portal Instructions ryann - Leadership Thank You Letter ryann - Work release form kc6 Prescriptions: - albuterol sulfate 90 mcg/actuation Inhalation HFA Aerosol Inhaler - inhale 2 puff INHALATION route every 4 to 6 hours as needed for shortness of ryann breath or wheezing; 1 unit; Refills: 0, Product Selection Permitted - Albuterol Sulfate 2.5 mg /3 mL (0.083 %) Inhalation Solution for Nebulization - inhale 1 unit NEBULIZATION route every 6-8 hours As needed; 30 unit; Refills: ryann 0, Product Selection Permitted - Prednisone 20 mg Oral Tablet - take 2 tablets ORAL route once daily for 5 days; 10 tablet; Refills: 0, Product ryann Selection Permitted - Zithromax 500 mg Oral tablet - take 1 tablet ORAL route once daily for 4 days; 4 tablet; Refills: 0, Product ryann Selection Permitted Signatures: Dispatcher [employer] Piero Gusman MD MD cha Prokisch, Amanda, RN RN ap3 Mitzy Conde RN RN ll1 Elise Hager RN RN kc6
--- NOTE | 2023-10-10 14:26 | ER ---
[facility] Name: Susana Florez Age: 43 yrs Sex: Female : 1980 Arrival Date: 10/10/2023 Time: 11:51 Bed 10 Private MD: Diagnosis: Acute upper respiratory infection, unspecified;Moderate persistent asthma;Tobacco abuse counseling;Tobacco use Presentation: 10/10 12:00 Chief complaint: Patient states: he has been having body aches, cough, congestion, pain ap3 with cough and generalized fatigue for 2-3 days. patient currently rates her pain as a 8/10 on the pain scale. Coronavirus screen: At this time, the client does not indicate any symptoms associated with coronavirus-19. Ebola Screen:. Initial Sepsis Screen: Does the patient meet any 2 criteria? HR > 90 bpm. No. Patient's initial sepsis screen is negative. Does the patient have a suspected source of infection? No. Patient's initial sepsis screen is negative. Risk Assessment: Do you want to hurt yourself or someone else? Patient reports no desire to harm self or others. Onset of symptoms was October 07, 2023. 12:00 Method Of Arrival: Ambulatory ap3 12:00 Acuity: DIMPLE 4 ap3 Triage Assessment: 12:03 General: Appears in no apparent distress. Behavior is calm, cooperative, appropriate ap3 for age, Reports feeling ill for fatigue for. Pain: Complains of pain in generalized body aches. Neuro: Level of Consciousness is awake, alert, obeys commands, Oriented to person, place, time, situation. Cardiovascular: Patient's skin is warm and dry. Respiratory: Reports cough that is productive, Airway is patent Respiratory effort is even, unlabored, Respiratory pattern is regular, symmetrical. 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 - Social history:: Smoking status: Patient reports the use of cigarette tobacco products, smokes one-half pack cigarettes per day, Reported history of juuling and/or vaping. - Family history:: not pertinent. Screenin:03 [facility] ED Fall Risk Assessment (Adult) History of falling in the last 3 months, ap3 including since admission No falls in past 3 months (0 pts). Abuse screen: Denies threats or abuse. Nutritional screening: No deficits noted. Tuberculosis screening: No symptoms or risk factors identified. Assessment: 12:21 Reassessment: No changes from previously documented assessment. Patient and/or family ll1 updated on plan of care and expected duration. Pain level reassessed. 13:23 General: Appears in no apparent distress. comfortable, well groomed, well developed, kc6 Behavior is calm, cooperative, appropriate for age. Neuro: Level of Consciousness is awake, alert, obeys commands, Oriented to person, place, time, situation, Appropriate for age. Cardiovascular: Capillary refill < 3 seconds. Respiratory: Reports cough that is productive, Airway is patent Trachea midline Respiratory effort is even, unlabored, Respiratory pattern is regular, symmetrical. GI: No signs and/or symptoms were reported involving the gastrointestinal system. : No signs and/or symptoms were reported regarding the genitourinary system. EENT: Reports nasal congestion. Derm: No signs and/or symptoms reported regarding the dermatologic system. Skin is intact, is healthy with good turgor, Skin is pink, warm \T\ dry. Musculoskeletal: No signs and/or symptoms reported regarding the musculoskeletal system. Circulation, motion, and sensation intact. Capillary refill < 3 seconds, Range of motion: intact in all extremities. 15:30 Reassessment: No changes from previously documented assessment. Patient and/or family ap3 updated on plan of care and expected duration. Pain level reassessed. Patient is alert, oriented x 3, equal unlabored respirations, skin warm/dry/pink. 15:30 Pain: Pain does not radiate. Pain began 2-3 days ago. ap3 Vital Signs: 12:00 BP 123 / 98; Pulse 101; Resp 19; Temp 99; Pulse Ox 99% ; Weight 68.04 kg; Height 5 ft. ap3 9 in. ; Pain 8/10; 15:30 BP 123 / 68; Pulse 88; Resp 18; Pulse Ox 97% on R/A; ap3 12:00 Body Mass Index 22.15 (68.04 kg, 175.26 cm) ap3 12:00 Pain Scale: Adult ap3 ED Course: 11:55 Patient arrived in ED. mr 12:02 Triage completed. ap3 12:03 Arm band placed on right wrist. ap3 12:07 Piero Velasquez MD is Attending Physician. ryann 12:10 Provided Education on: ER procedures and process. ap3 12:21 Strep Sent. ll1 12:21 SARS RAPID Sent. ll1 12:21 Flu Sent. ll1 12:45 Chest Pa And Lat (2 Views) XRAY In Process Unspecified. EDMS 13:22 Patient maintains SpO2 saturation greater than 95% on room air. kc6 13:23 Patient has correct armband on for positive identification. Bed in low position. Call kc6 light in reach. Side rails up X 1. Client placed on continuous cardiac and pulse oximetry monitoring. NIBP monitoring applied. 14:25 Mata Torres MD is Referral Physician. [facility] 14:35 Elise Hager RN is Primary Nurse. kc6 15:30 No provider procedures requiring assistance completed. Patient did not have IV access ap3 during this emergency room visit. Administered Medications: 12:21 Drug: Acetaminophen PO 650 mg PO once Route: PO; ll1 15:31 Follow up: Response: No adverse reaction; Pain is decreased ap3 12:21 Drug: AZITHromycin PO 500 mg PO once Route: PO; ll1 15:31 Follow up: Response: No adverse reaction ap3 12:45 Drug: predniSONE PO 60 mg PO once Route: PO; kc6 15:31 Follow up: Response: No adverse reaction ap3 12:45 Drug: Levalbuterol Inhalation 2.5 mg Inhalation once Route: Inhalation; kc6 15:31 Follow up: Response: No adverse reaction ap3 12:46 Drug: Ipratropium Inhalation Aerosol 0.5 mg Inhalation once Route: Inhalation; kc6 15:31 Follow up: Response: No adverse reaction ap3 14:39 Drug: Levalbuterol Inhalation 1.25 mg Inhalation once Route: Inhalation; kc6 15:32 Follow up: Response: No adverse reaction ap3 Medication: 15:31 VIS not applicable for this client. ap3 Outcome: 14:26 Discharge ordered by . ryann 15:30 Discharged to home ambulatory, ap3 15:30 Condition: stable 15:30 Discharge instructions given to patient, Instructed on discharge instructions, follow up and referral plans. medication usage, Demonstrated understanding of instructions, follow-up care, medications, Prescriptions given X 4, 15:32 Patient left the ED. ap3 Signatures: Dispatcher [employer] EDMS Piero Velasquez MD MD cha Rivera, Sosa, Reg Reg mr Juancho, Liz, RN RN ap3 Mitzy Conde RN RN ll1 Elise Hager RN RN kc6
== END ==
LOC: ER 11:51
DX: J06.9 Acute upper respiratory infection, unspecified (principal); J45.40 Moderate persistent asthma, uncomplicated; Z71.6 Tobacco abuse counseling; Z72.0 Tobacco use; Z11.52 Encounter for screening for COVID-19
CPT/HCPCS: 36415; 71046; 87070; 87081; 87804; 87811; J7512; J7614; J7644

== ENCOUNTER 2024-11-29 21:11 | Emergency (ER) | payer OTHER ==
--- OUTSIDE RECORDS SUMMARY | 2024-11-29 21:16 | XMS REPORT | Continuity of Care Document ---
Author Name Unknown Address [address] [place] [address] [facility] Address [address] [place] [address] Care Team Providers Care Certified Pest Control Technician Name Role Phone PCP, PATIENT DOES NOT HAVE A Primary Care Physic kaitlyn Unavailable YSABEL ELIZABETH Attending Clinician Unavailable YANELI WU Attending Clinician Unavailab DUYEN Aleman Attending Clinician Unavailable KATRIN LEMUS Attending Clinician UnavailANGELITO Strong Attending Clinician Unavailable RAY HERRERA Attending Clinician Unavailable PAVAN GUEVARA Attending Clinician Unavailable MD CADE Attending Clinician Unavailab le [id number] Attending Clinician Unavailable JUJU NOEL Attending Clinician Unav ailable LAB90 Attending Clinician Unavailable JLUIO HARTMAN Attending Clinician Unavailable PL, TECH 1 Attending Clinician Unavailable BARRINGTON VILLANUEVA Attending Clinician Unava ilMARK Robles Attending Clinician Unavailable Mark Somers DO Attending Clinician +[phone] Sidra Suh DO Attending Clinician [phone] Danielle Montaño Attending Clinician [phone]- [phone] Doctor Unassigned, [place] Attending Clinician U navailable Therapy, [facility] Attending Clinician Unavailable Alessandro TORRES, Brenda Kramer Attending Clinician [phone] BRENDA CHAMPAGNE Attending Clinician Unavailable Noam RESAWYERMary Beth Attending Clinician [phone] Idania GEORGEPGeno Attending Clinician [phone] Frank RESAWYERPolo Attending Clinician [phone] POLO MARIE Attending Clinician Unavailable MARK SOMERS Admitting Clinician Unavailable POLO MARIE Admitting Clinician Unavailable Physician, No Primary or Family Admitting Clinic kaitlyn Unavailable Payers Payer Name Policy Type Policy Number Effective Date Expirati on Date Source [address] [address] [id number] 2024 00:00:00 Problems Condition Name Condition Details Condition Category Status Onset Date Resolution Date Last Treatment Date Treating Clinician Comments Source Mild major depression Mild major depression Disease Active 01-09 00:00: 00 Abigail Pruettold - Externa l Current every day smoker Current every day smoker Disease Active 01-09 00:00: 00 Abigail Seybold - Externa l Chronic bilateral low back pain without sciatica Chronic bilateral low back pain without sciatica Disease Active 01-09 00:00: 00 Abigail Seybold - Externa l Chronic migraine with aura without status migrainosu s, not intractabl e Chronic migraine with aura without status migrainosu s, not intractabl e Disease Active 01-09 00:00: 00 Abigail Seybold - Externa l Severe persistent asthma (HHS-HCC) Severe persistent asthma (HHS-HCC) Disease Active 01-09 00:00: 00 Abigail craig Gastroesop hageal reflux disease Gastroesop hageal reflux disease Disease Active 5-08 00:00: 00 Abigail craig Moderate persistent asthma with acute exacerbati on (HHS-HCC) Moderate persistent asthma with acute exacerbati on (HHS-HCC) Disease Active 4- 00:00: 00 Abigail craig Family history of heart attack Family history of heart attack Disease Active 4- 00:00: 00 Abigail craig Abnormal finding on lung imaging Abnormal finding on lung imaging Disease Active 4- 00:00: 00 Abigail craig 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 Disease Recurre nce 03-23 00:00: 00 [facility] Allergies, Adverse Reactions, Alerts Allergy Name Allergy Type Status Severity Reaction(s) Onset Date Inactive Date Treating Clinician Comments Source No Known Allergie s DA Active U 04-11 00:00: 00 [facility] No Known Allergie s DA Active U 04-11 00:00: 00 [facility] PROPOXYP HENE N-ACETAM INOPHEN DRUG Active N/V 10-12 00:00: 00 [facility] Propoxyp hene N-Acetam inophen Propensi ty to adverse reaction s Active Nausea and/or Vomiting 10-12 00:00: 00 [facility] Propoxyp hene Propensi ty to adverse reaction s Active 05-30 00:00: 00 Other Reaction( s): Nausea/Vo miting, Unknown Abigail craig Social History Social Habit Start Date Stop Date Quantity Comments Source Sexual orientation 2023-12-04 13:07:23 Heterosexual (finding) Abigail Gandhi - External ASSERTION Not Abigail Gandhi - External History of tobacco use Passive smoker Abigail renteria - External Alcoholic beverage intake 2024-08-07 00:00:00 2024-08-07 00:00:00 .14 /d Abigail Gandhi - External History of Social function 2024-03-22 00:00:00 2024-03-22 00:00:00 Abigail Lópezlakishanick Art External Cigarettes smoked current (pack per day) - Reported 2024-01-10 00:00:00 2024-01-10 00:00:00 Abigail Lópezlakishanick - External Cigarette pack-years 2024-01-10 00:00:00 2024-01-10 00:00:00 Abigail lakishanick - External Tobacco use and exposure 2024-01-10 00:00:00 2024-01-10 00:00:00 Smokeless tobacco non-user Abigail Lópezlakishanick - External Alcohol Comment 2023-12-22 00:00:00 2023-12-22 00:00:00 rare Abigail Lópezlakishanick - External Sex 2023-11-29 15:01:22 2023-11-29 15:01:22 Female (finding) Abigail Selakishanick - External Exposure to SARS-CoV-2 (event) 2022-06-17 00:00:00 2022-06-27 15:28:00 Not sure [facility] Alcohol intake 2022-06-27 00:00:00 2022-06-27 00:00:00 [facility] Sex assigned at 1980 00:00:00 1980 00:00:00 F Abigail Gandhi - External Smoking Status Start Date Stop Date Source Smokes tobacco daily 2024-01-10 00:00:00 Abigail Selakishanick - External Medications Ordered Medication Name Filled Medication Name Start Date Stop Date Current Medication? Ordering Clinician Indication Dosage Frequency Signature (SIG) Comments Components Source Loperamide HCl (IMODIUM A-D) 2 MG oral Tablet 2023-09 00:00: 00 Yes [id number] 2mg Q.25D Take 1 tablet (2 mg total) by mouth 4 times daily as needed for diarrhea. Abigail craig Ondansetron (ZOFRAN) 4 MG oral TABLET DISPERSIBLE 2023-09 00:00: 00 Yes [id number] 4mg Q.[id number] 3D Take 1 tablet (4 mg total) by mouth every 8 hours as needed for nausea. Abigail craig Guaifenesin (Mucinex) 600 MG oral Tablet 12 Hour Sustained Release 2023-09 00:00: 00 Yes [id number] 1200mg Q.5D Take 2 tablets (1,200 mg total) by mouth 2 times daily. Abigail craig methylPREDN ISolone 4 MG oral Tablet Therapy Pack 2023-09 00:00: 00 Yes [id number] 1{emir} Take 1 emir by mouth See Admin Instructio ns Use as directed. Abigail craig Azithromyci n 250 MG oral Tablet 2023-09 00:00: 00 08-13 05:59 :00 No [id number] Take 2 tablets by mouth on day 1 then 1 tablet by mouth daily for 4 days thereafter .. Abigail craig Cyclobenzap rine HCl 5 MG oral Tablet 2023-09 00:00: 00 Yes [id number] 5mg Q.[id number] 3D Take 1 tablet (5 mg total) by mouth 3 times daily as needed for muscle spasms. Abigail craig Montelukast (SINGULAIR) 10 MG oral Tablet tablet 2023-09 00:00: 00 Yes [id number] 10mg QD Take 1 tablet (10 mg total) by mouth nightly. Abigail craig Pantoprazol e Sodium 40 MG oral Tablet Delayed Response 2023-09 00:00: 00 Yes [id number] 40mg QD Take 1 tablet (40 mg total) by mouth daily. Abigail craig Albuterol HFA 108 (90 Base) MCG/ACT IN AERS 2023-09 00:00: 00 Yes [id number] 2{puff} Q.25D Inhale 2 puffs into the lungs every 6 hours as needed for wheezing. Abigail craig Topiramate 50 MG oral Tablet 2023-09 00:00: 00 Yes [id number] 50mg Q.5D Take 1 tablet (50 mg total) by mouth 2 times daily. Abigail craig Duloxetine HCl [address] Particles 2023-09 00:00: 00 Yes [id number] 60mg QD Take 1 capsule (60 mg total) by mouth daily. Abigail craig Budesonide- Formoterol Fumarate 160-4.5 MCG/ACT inhalation Aerosol 2023-09 00:00: 00 Yes [id number] 2{puff} Q.5D Inhale 2 puffs into the lungs 2 times daily. Abigail craig Multiple Vitamin (MULTIVITAM IN ADULT OR) 04-04 08:17: 12 Yes Take by mouth. Abigail craig Multiple Vitamin (MULTIVITAM IN ADULT OR) 03-22 13:39: 56 Yes Take by mouth. Abigail craig Potassium Chloride ER (KLOR-CON) 20 MEQ oral Tab CR 03-14 00:00: 00 Yes [id number] 20meq QD Take 1 tablet (20 mEq total) by mouth daily. Abigail craig Vitamin D, Ergocalcife rol, 1.25 MG (26828 UT) oral Capsule 03-14 00:00: 00 Yes [id number] 16039S Q1W Take 1 capsule (50,000 units total) by mouth once a week. Abigail craig Duloxetine HCl [address] Particles 03-06 00:00: 00 Yes [id number] 60mg QD Take 1 capsule (60 mg total) by mouth daily. Abigail craig Topiramate 50 MG oral Tablet 03-06 00:00: 00 Yes [id number] 50mg Q.5D Take 1 tablet (50 mg total) by mouth 2 times daily. Abigail craig Gabapentin 300 MG oral Capsule 03-06 00:00: 00 Yes [id number] 300mg Q.96155252 [id number] 3D Take 1 capsule (300 mg total) by mouth 3 times daily. Abigail craig Sumatriptan Succinate 25 MG oral Tablet 03-06 00:00: 00 Yes [id number] 25mg Take 1 tablet (25 mg total) by mouth once as needed for migraine (May repeat in 2 hours if unresolved . Do not exceed 200 mg in 24 hours.). Abigail craig Cyclobenzap rine HCl 5 MG oral Tablet 03-04 00:00: 00 Yes [id number] 5mg Q.[id number] 3D Take 1 tablet (5 mg total) by mouth 3 times daily as needed for muscle spasms. Abigail craig Budesonide- Formoterol Fumarate 160-4.5 MCG/ACT inhalation Aerosol 02-10 00:00: 00 Yes [id number] 2{puff} Q.5D Inhale 2 puffs into the lungs 2 times daily. Abigail craig Topiramate 25 MG oral Tablet 02-06 00:00: 00 03-06 00:00 :00 No [id number] 25mg Q.5D Take 1 tablet (25 mg total) by mouth 2 times daily. Abigail craig Topiramate 25 MG oral Tablet 01-09 00:00: 00 Yes [id number] 25mg Take 1 tablet (25 mg total) by mouth 2 times daily. Abigail craig Cyclobenzap rine HCl 5 MG oral Tablet 01-09 00:00: 00 Yes [id number] 5mg Q.[id number] 3D Take 1 tablet (5 mg total) by mouth 3 times daily as needed for muscle spasms. Abigail craig Montelukast (SINGULAIR) 10 MG oral Tablet tablet 01-09 00:00: 00 Yes [id number] 10mg QD Take 1 tablet (10 mg total) by mouth nightly. Abigail craig Pantoprazol e Sodium 40 MG oral Tablet Delayed Response 01-09 00:00: 00 Yes [id number] 40mg QD Take 1 tablet (40 mg total) by mouth daily. Abigail craig Sumatriptan Succinate 25 MG oral Tablet 01-09 00:00: 00 03-06 00:00 :00 No [id number] 25mg Take 1 tablet (25 mg total) by mouth once as needed for migraine (May repeat in 2 hours if unresolved . Do not exceed 200 mg in 24 hours.). Abigail craig Duloxetine HCl [address] Particles 01-09 00:00: 03-06 00:00 :00 No [id number] 30mg QD Take 1 capsule (30 mg total) by mouth daily. Abigail craig Gabapentin 100 MG oral Capsule 01-09 00:00: 03-06 00:00 :00 No [id number] 300mg Q.[id number] 3D Take 3 capsules (300 mg total) by mouth 3 times daily as needed No driving or drinking alcohol with medication . Abigail craig methylPREDN ISolone 4 MG oral Tablet Therapy Pack 01-09 00:00: 00 03-06 00:00 :00 No [id number] 1{emir} Take 1 emir by mouth See Admin Instructio ns Use as directed. Abigail craig Pantoprazol e Sodium 40 MG oral Tablet Delayed Response 12-20 00:00: 00 01-09 00:00 :00 No [id number] 40mg Take 1 tablet (40 mg total) by mouth daily. Abgiail craig Montelukast (SINGULAIR) 10 MG oral Tablet tablet 12-20 00:00: 00 01-09 00:00 :00 No [id number] 10mg Take 1 tablet (10 mg total) by mouth nightly. Abigail craig predniSONE (DELTASONE) 10 MG oral tablet 12-20 00:00: 00 01-09 00:00 :00 No [id number] Take prednisone 40 mg a day for 3 days, then 30 mg a day for 3 days, then 20 mg a day for 3 days, then10 mg a day for 3 days then stop.. Abigail craig Meloxicam 15 MG oral Tablet 12-20 00:00: 00 12-21 00:00 :00 No [id number] 15mg Take 1 tablet (15 mg total) by mouth daily. Abigail craig Albuterol HFA 108 (90 Base) MCG/ACT IN AERS 12-13 14:31: 12-13 00:00 :00 No 2{puff} Q.25D Inhale 2 puffs into the lungs every 6 hours as needed for wheezing. Abigail craig Albuterol Sulfate 2.5 MG/0.5ML inhalation Inhalant Solution 12-13 14:31: 12-13 00:00 :00 No 2.5mg Take 2.5 mg by nebulizati on once Inhale 1 unit nebulizati on route every 6-8 hrs as needed . Abigail craig Albuterol HFA 108 (90 Base) MCG/ACT IN AERS 12-13 00:00: 00 Yes [id number] 2{puff} Q.25D Inhale 2 puffs into the lungs every 6 hours as needed for wheezing. Abigail craig Albuterol Sulfate 1.25 MG/3ML inhalation Inhalant Solution 12-13 00:00: 00 Yes [id number] 1.25mg Q.25D Take 3 mL (1.25 mg total) by nebulizati on every 6 hours as needed for wheezing. Abigail craig Budesonide- Formoterol Fumarate (Symbicort) 160-4.5 MCG/ACT inhalation Aerosol 12-13 00:00: 00 Yes [id number] 2{puff} Inhale 2 puffs into the lungs 2 times daily. Abigail craig Gabapentin 100 MG oral Capsule 12-13 00:00: 00 01-09 00:00 :00 No [id number] 100mg Q.5D Take 1 capsule (100 mg total) by mouth 2 times daily as needed No driving or drinking alcohol with medication . Abigail craig Diclofenac Sodium 75 MG oral Tablet Delayed Response 12-13 00:00: 00 12-13 00:00 :00 No [id number] 75mg Q.5D Take 1 tablet (75 mg total) by mouth 2 times daily as needed. Abigail craig HYDROcodone -acetaminop hen (NORCO) 10-325 mg tablet 1 tablet 2021-09 0-25 00:15: 00 06-27 23:24 :00 No 1{tbl} 1 tablet, Oral, ONCE, 1 dose, On 06/27/22 at 1915, Routine [facility] casirivimab -imdevimab (REGEN-COV (EUA)) 1,200 mg in NaCl 0.9% (NS) 60 mL IV infusion 04-22 19:30: 00 04-22 19:24 :00 No [id number] 1200[facility] casirivimab -imdevimab (REGEN-COV (EUA)) 1,200 mg in NaCl 0.9% (NS) 60 mL IV infusion 04-22 19:30: 00 04-22 19:24 :00 No [id number] 1200mg 1,200 mg, IV Infusion, ONCE, Administer over 20 Minutes, [facility] 04/22/21 at 1430, For 1 dose
[employer] model as an IV infusion via pump or [...] disintegrat ing tablet 04-16 00:00: 00 Yes [id number] 4mg Take 1 tablet by mouth every 8 (eight) hours as needed for Nausea and Vomiting (N/V). [facility] bromphenira mine-pseudo ephedrine-D M (BROMFED DM) 2-30-10 mg/5 mL syrup 04-16 00:00: 00 Yes [id number] 5mL Take 5 mL by mouth 4 (four) times daily as needed for Congestion /Allergies . [facility] predniSONE 20 mg tablet 04-16 00:00: 00 04-22 04:59 :00 No [id number] 40mg Take 2 tablets by mouth daily [...] 1 dose, Mon12/28/20 at 2015, SHEBA
[employer] cult[employer] member approving Restricted medication : GENO EMERSON [facility] ibuprofen 600 mg tablet 12-28 00:00: 00 Yes [id number] 600mg Take 1 tablet by mouth every 6 (six) hours as needed for Pain (scale 4-6). [facility] cephALEXin 500 mg capsule 12-28 00:00: 00 01-05 04:59 :00 No [id number] 500mg Take 1 capsule by mouth 4 [...] 0.1 % ointment 03-21 00:00: 00 Yes [id number] Apply to area(s) 2 (two) times daily. [facility] Immunizations Ordered Immunization Name Filled Immunization Name Date Status Comments Source Pneumococcal Vaccine, Conjugate 20 Unknown Completed Abigail Seybold - External Tdap- (Boostrix, Adacel) Unknown Completed Abigail Seybold - External Pneumococcal Vaccine, Conjugate 20 Unknown Completed Abigail Seybold - External Tdap- (Boostrix, Adacel) Unknown Completed Abigail Seybold - External Pneumococcal Vaccine, Conjugate 20 Unknown Completed Abigail Seybold - External Tdap- (Boostrix, Adacel) Unknown Completed Abigail Seybold - External Pneumococcal Vaccine, Conjugate 20 Unknown Completed Abigail Seybold - External Tdap- (Boostrix, Adacel) Unknown Completed Abigail Seybold - External Vital Signs Vital Name Observation Time Observation Value Comments S ource Systolic blood pressure 2024-03-22 18:36:00 118 mm[Hg] Abigail Seybo ld - External Diastolic blood pressure 2024-03-22 18:36:00 72 mm[Hg] Abigail Seybo ld - External Heart rate 2024-03-22 18:36:00 89 /min Kelse y Seybold - External Respiratory rate 2024-03-22 18:36:00 16 /min Abigail Seybold - External Body height 2024-03-22 18:36:00 175.3 cm Kelsea ey Seybold - External Body weight 2024-03-22 18:36:00 98.158 kg Kelsea ey Seybold - External BMI 2024-03-22 18:36:00 31.96 kg/m2 Kelsea ey Seybold - External Systolic blood pressure 2024-03-06 18:09:00 126 mm[Hg] Abigail Seybo ld - External Diastolic blood pressure 2024-03-06 18:09:00 80 mm[Hg] Abigail Seybo ld - External Heart rate 2024-03-06 18:09:00 100 /min Kelse y Seybold - External Body temperature 2024-03-06 18:09:00 36.89 Jeanette Abigail Seybold - External Respiratory rate 2024-03-06 18:09:00 14 /min Abigail Seybold - External Body height 2024-03-06 18:09:00 175.3 cm Kelsea ey Seybold - External Body weight 2024-03-06 18:09:00 98.431 kg Kelsea ey Seybold - External BMI 2024-03-06 18:09:00 32.05 kg/m2 Kelsea ey Seybold - External Systolic blood pressure 2024-01-10 13:16:00 110 mm[Hg] Abigail Seybo ld - External Diastolic blood pressure 2024-01-10 13:16:00 64 mm[Hg] Abigail Seybo ld - External Heart rate 2024-01-10 13:16:00 103 /min Kelse y Seybold - External Body temperature 2024-01-10 13:16:00 36.61 Jeanette Abigail Seybold - External Respiratory rate 2024-01-10 13:16:00 14 /min Abigail Seybold - External Body height 2024-01-10 13:16:00 175.3 cm Kelsea ey Seybold - External Body weight 2024-01-10 13:16:00 98.431 kg Kelsea ey Seybold - External BMI 2024-01-10 13:16:00 32.05 kg/m2 Kelsea ey Seybold - External Systolic blood pressure 2023-12-22 18:00:00 126 mm[Hg] Abigail Seybo ld - External Diastolic blood pressure 2023-12-22 18:00:00 81 mm[Hg] Abigail Seybo ld - External Heart rate 2023-12-22 18:00:00 94 /min Kelse y Seybold - External Body temperature 2023-12-22 18:00:00 36.61 Jeanette Abigail Seybold - External Respiratory rate 2023-12-22 18:00:00 16 /min Abigail Seybold - External Body height 2023-12-22 18:00:00 175.3 cm Kelsea ey Seybold - External Body weight 2023-12-22 18:00:00 96.616 kg Kelsea ey Seybold - External BMI 2023-12-22 18:00:00 31.45 kg/m2 Kelsea ey Seybold - External Systolic blood pressure 2023-12-21 13:13:00 112 mm[Hg] Abigail Seybo ld - External Diastolic blood pressure 2023-12-21 13:13:00 82 mm[Hg] Abigail Seybo ld - External Heart rate 2023-12-21 13:13:00 81 /min Kelse y Seybold - External Body temperature 2023-12-21 13:13:00 36.28 Jeanette Abigail Seybold - External Respiratory rate 2023-12-21 13:13:00 16 /min Abigail Seybold - External Body height 2023-12-21 13:13:00 175.3 cm Kelsea ey Seybold - External Body weight 2023-12-21 13:13:00 96.616 kg Kelsea ey Seybold - External BMI 2023-12-21 13:13:00 31.45 kg/m2 Kelsea ey Seybold - External Oxygen saturation in Arterial blood by Pulse oximetry 2023-12-21 13:13:00 97 /min Abigail Seybo ld - External Systolic blood pressure 2023-12-14 18:01:00 102 mm[Hg] Abigail Seybo ld - External Diastolic blood pressure 2023-12-14 18:01:00 80 mm[Hg] Abigail Seybo ld - External Heart rate 2023-12-14 18:01:00 87 /min Theose y Seybold - External Body temperature 2023-12-14 18:01:00 36.83 Jeanette Abigail Seybold - External Respiratory rate 2023-12-14 18:01:00 22 /min Abigail Seybold - External Body height 2023-12-14 18:01:00 175.3 cm Kelsea ey Seybold - External Body weight 2023-12-14 18:01:00 97.523 kg Kelsea ey Seybold - External BMI 2023-12-14 18:01:00 31.75 kg/m2 Kelsea ey Seybold - External Oxygen saturation in Arterial blood by Pulse oximetry 2023-12-14 18:01:00 97 /min Abigail Seybo ld - External Systolic blood pressure 2022-06-27 23:00:00 114 mm[Hg] [facility] Diastolic blood pressure 2022-06-27 23:00:00 77 mm[Hg] [facility] Heart rate 2022-06-27 23:00:00 96 /min [facility] Respiratory rate 2022-06-27 23:00:00 16 /min [facility] Oxygen saturation in Arterial blood by Pulse oximetry 2022-06-27 23:00:00 96 /min [facility] Body temperature 2022-06-27 20:29:00 36.61 Jeanette [facility] Body height 2022-06-27 20:29:00 175.3 cm [facility] Body weight 2022-06-27 20:29:00 81.647 kg [facility] BMI 2022-06-27 20:29:00 26.58 kg/m2 [facility] Systolic blood pressure 2021-05-03 17:27:00 127 mm[Hg] [facility] Diastolic blood pressure 2021-05-03 17:27:00 74 mm[Hg] [facility] Heart rate 2021-05-03 17:27:00 94 /min [facility] Body temperature 2021-05-03 17:27:00 37.11 Jeanette [facility] Respiratory rate 2021-05-03 17:27:00 16 /min [facility] Body height 2021-05-03 17:27:00 175.3 cm [facility] Body weight 2021-05-03 17:27:00 68.04 kg [facility] BMI 2021-05-03 17:27:00 22.15 kg/m2 [facility] Oxygen saturation in Arterial blood by Pulse oximetry 2021-05-03 17:27:00 97 /min [facility] Systolic blood pressure 2021-04-22 20:25:00 99 mm[Hg] [facility] Diastolic blood pressure 2021-04-22 20:25:00 64 mm[Hg] [facility] Heart rate 2021-04-22 20:25:00 75 /min [facility] Body temperature 2021-04-22 20:25:00 36.5 Jeanette [facility] Respiratory rate 2021-04-22 20:25:00 17 /min [facility] Oxygen saturation in Arterial blood by Pulse oximetry 2021-04-22 20:25:00 99 /min [facility] Body height 2021-04-22 18:25:00 175.3 cm [facility] Body weight 2021-04-22 18:25:00 84.823 kg [facility] BMI 2021-04-22 18:25:00 27.62 kg/m2 [facility] Systolic blood pressure 2021-04-16 16:16:00 137 mm[Hg] [facility] Diastolic blood pressure 2021-04-16 16:16:00 68 mm[Hg] [facility] Heart rate 2021-04-16 16:16:00 78 /min [facility] Body temperature 2021-04-16 16:16:00 36.83 Jeanette [facility] Respiratory rate 2021-04-16 16:16:00 18 /min [facility] Body height 2021-04-16 16:16:00 175.3 cm [facility] Body weight 2021-04-16 16:16:00 80.74 kg [facility] BMI 2021-04-16 16:16:00 26.29 kg/m2 [facility] Oxygen saturation in Arterial blood by Pulse oximetry 2021-04-16 16:16:00 97 /min [facility] Systolic blood pressure 2020-12-29 00:00:00 123 mm[Hg] [facility] Diastolic blood pressure 2020-12-29 00:00:00 82 mm[Hg] [facility] Heart rate 2020-12-29 00:00:00 77 /min [facility] Respiratory rate 2020-12-29 00:00:00 16 /min [facility] Oxygen saturation in Arterial blood by Pulse oximetry 2020-12-29 00:00:00 99 /min [facility] Body temperature 2020-12-28 20:34:00 37 Jeanette [facility] Body weight 2020-12-28 20:34:00 68.04 kg [facility] BMI 2020-12-28 20:34:00 22.81 kg/m2 [facility] Systolic blood pressure 2020-12-29 00:00:00 123 mm[Hg] [facility] Diastolic blood pressure 2020-12-29 00:00:00 82 mm[Hg] [facility] Heart rate 2020-12-29 00:00:00 77 /min [facility] Respiratory rate 2020-12-29 00:00:00 16 /min [facility] Oxygen saturation in Arterial blood by Pulse oximetry 2020-12-29 00:00:00 99 /min [facility] Body temperature 2020-12-28 20:34:00 37 Jeanette [facility] Body weight 2020-12-28 20:34:00 68.04 kg [facility] BMI 2020-12-28 20:34:00 22.81 kg/m2 [facility] Systolic blood pressure 2020-11-25 22:00:00 125 mm[Hg] [facility] Diastolic blood pressure 2020-11-25 22:00:00 87 mm[Hg] [facility] Heart rate 2020-11-25 22:00:00 89 /min [facility] Respiratory rate 2020-11-25 22:00:00 19 /min [facility] Oxygen saturation in Arterial blood by Pulse oximetry 2020-11-25 22:00:00 96 /min [facility] Body temperature 2020-11-25 20:16:00 36.67 Jeanette [facility] Body weight 2020-11-25 20:16:00 68.04 kg [facility] BMI 2020-11-25 20:16:00 22.81 kg/m2 [facility] Systolic blood pressure 2020-11-25 22:00:00 125 mm[Hg] [facility] Diastolic blood pressure 2020-11-25 22:00:00 87 mm[Hg] [facility] Heart rate 2020-11-25 22:00:00 89 /min [facility] Respiratory rate 2020-11-25 22:00:00 19 /min [facility] Oxygen saturation in Arterial blood by Pulse oximetry 2020-11-25 22:00:00 96 /min [place] [facility] Body temperature 2020-11-25 20:16:00 36.67 [facility] Body weight 2020-11-25 20:16:00 68.04 kg [facility] BMI 2020-11-25 20:16:00 22.81 kg/m2 [facility] Procedures Procedure Date / Time Performed Performing Clinicia n Source CHEST PA LATERAL 2023-12-21 14:43:35 Ray Herrera lsey Seybold - External D-DIMER 2022-06-27 22:38:00 [facility] LIPASE 2022-06-27 21:15:00 [facility] MAGNESIUM 2022-06-27 21:15:00 [facility] TROPONIN I 2022-06-27 21:15:00 [facility] COMP. METABOLIC PANEL (39971) 2022-06-27 21:15:00 Mark Somers [facility] CBC WITH DIFF 2022-06-27 21:15:00 Mark Somers [facility] N-TERMINAL PRO-BNP 2022-06-27 21:15:00 Mark Somers [facility] XR CHEST 1 VW 2022-06-27 21:00:39 Mark Somers [facility] CONSENT/REFUSAL FOR DIAGNOSIS AND TREATMENT 2022-06-27 19:54:43 Doctor Unassigned, [place] [facility] CONSENT/REFUSAL FOR DIAGNOSIS AND TREATMENT 2021-05-03 16:52:48 Doctor Unassigned, [place] [facility] ASSIGNMENT OF BENEFITS 2021-04-16 17:52:37 Docto r Unassigned, [place] RAPID STREP SCREEN FOR GROUP A 2021-04-16 16:30:00 Mary Beth Santacruz [facility] CONSENT/REFUSAL FOR DIAGNOSIS AND TREATMENT 2021-04-16 15:59:46 Doctor Unassigned, [place] [facility] URINALYSIS 2020-12-29 00:19:00 MagdalenoirenealissaGeno acosta [facility] CONSENT/REFUSAL FOR DIAGNOSIS AND TREATMENT 2020-12-28 20:23:27 Doctor Unassigned, [place] TROPONIN I 2020-11-25 22:10:00 Polo Marie [facility] XR CHEST 1 VW 2020-11-25 20:46:11 [facility] LIPASE 2020-11-25 20:34:00 [facility] TROPONIN I 2020-11-25 20:34:00 [facility] HEPATIC FUNCTION PANEL (95306) (ALB,T.PRO,BILI T,BU/BC,ALT,AST,ALK PHOS) 2020-11-25 20:34:00 [facility] BASIC METABOLIC PANEL (NA, K, CL, CO2, GLUCOSE, BUN, CREATININE, CA) 2020-11-25 20:34:00 [facility] CBC WITH DIFF 2020-11-25 20:34:00 Polo Marie [facility] N-TERMINAL PRO-BNP 2020-11-25 20:34:00 [facility] HB ECG ROUTINE & RHYTHM STRIP 2020-11-25 20:22:52 [facility] Encounters Start Date/Time End Date/Time Encounter Type Admission Type Attending Clinicians Care Facility Care Department Encounter ID Source 2021-07-05 19:02:36 Emergency [facility] [id number] [facility] 2021-07-05 15:21:12 Emergency [facility] [id number] [facility] 2021-07-04 15:22:03 Emergency [facility] [id number] [facility] 2024-11-21 00:00:00 2024-11-21 00:00:00 Outpatient PREZAYSABEL Suarez ABIGAIL ASTUDILLO [id number] [facility] 2024-11-07 00:00:00 2024-11-07 00:00:00 Outpatient YANELI WU [id number] [facility] 2024-10-11 00:00:00 2024-10-11 00:00:00 Outpatient HUNDL, DUYEN ASTUDILLO [id number] [facility] 2024-08-09 00:00:00 2024-08-09 00:00:00 Outpatient HUNDL, DUYEN ASTUDILLO [id number] [facility] 2024-08-07 14:00:00 2024-08-07 14:00:00 Outpatient MARIAHKATRIN ABIGAIL ASTUDILLO [id number] [facility] 2024-08-07 13:30:00 2024-08-07 13:30:00 Outpatient HUNDL, DUYEN ASTUDILL[facility] [id number] [facility] 2024-07-11 00:00:00 2024-07-11 00:00:00 Outpatient HUNDL, DUYEN ASTUDILLO [id number] [facility] 2024-07-08 00:00:00 2024-07-08 00:00:00 Outpatient YANELI WU [id number] [facility] 2024-07-04 15:40:00 2024-07-04 15:40:00 Outpatient ABIGAIL ASTUDILLO [id number] [facility] 2024-07-04 11:15:00 2024-07-04 11:15:00 Outpatient ANGELITO JACKSON [id number] [facility] 2024-07-03 00:00:00 2024-07-03 00:00:00 Outpatient HUNDL, DUYEN ASTUDILLO [id number] [facility] 2024-06-18 00:00:00 2024-06-18 00:00:00 Outpatient RAY HERRERA [id number] [facility] 2024-06-11 00:00:00 2024-06-11 00:00:00 Outpatient YANELI WU ABIGAIL ASTUDILLO [id number] [facility]ail [facility] 2024-06-05 00:00:00 2024-06-05 00:00:00 Outpatient ISMAEL PAVAN ASTUDILLO [id number] [facility] 2024-05-29 00:00:00 2024-05-29 00:00:00 Outpatient MD ABIGAIL MIRANDA [id number] [facility] 2024-05-24 00:00:00 2024-05-24 00:00:00 Outpatient YANELI WU ABIGAIL ASTUDILLO [id number] [facility] 2024-05-13 00:00:00 2024-05-13 00:00:00 Outpatient KAMRON, DUYEN ASTUDILLO [id number] [facility] 2024-05-02 00:00:00 2024-05-02 00:00:00 Outpatient DUYEN LUNDY [id number] [facility] 2024-04-04 00:00:00 2024-04-04 00:00:00 Outpatient HUNDRosario, DUYEN ASTUDILLO [id number] A[facility]ail Seybold 2024-03-22 14:30:00 2024-03-22 14:30:00 Outpatient RZE891 ABIGAIL ASTUDILLO [id number] A[facility]ail Seybold 2024-03-22 13:45:00 2024-03-22 13:45:00 Outpatient PAVAN GUEVARA [id number] [facility] Sey[facility] 2024-03-14 10:00:00 2024-03-14 10:00:00 Outpatient INJANGELITO [id number] A[facility]ail Seybold 2024-03-14 09:10:00 2024-03-14 09:10:00 Outpatient UJJU NOEL [id number] [facility]ail Sey[facility] 2024-03-14 00:00:00 2024-03-14 00:00:00 Outpatient KAMRON, DUYEN ASTUDILLO [id number] [facility] Seybold 2024-03-06 14:15:00 2024-03-06 14:15:00 Outpatient LAB90 ABIGAIL ASTUDILLO [id number] [facility] 2024-03-06 13:30:00 2024-03-06 13:30:00 Outpatient EDENRosario DUYEN ABIGAIL ASTUDILLO [id number] A[facility] Seybold 2024-03-04 00:00:00 2024-03-04 00:00:00 Outpatient EDENRosario DUYEN ASTUDILLO [id number] [facility] Seybold 2024-02-09 00:00:00 2024-02-09 00:00:00 Outpatient YANELI WU [id number] [facility] 2024-02-07 00:00:00 2024-02-07 00:00:00 Outpatient JULIO HARTMAN [id number] [facility] Seybold 2024-02-06 00:00:00 2024-02-06 00:00:00 Outpatient EDENRosario DUYEN ASTUDILLO [id number] [facility] 2024-02-05 12:00:00 2024-02-05 12:00:00 Outpatient MINNIE JULIO ASTUDILLO [id number] A[facility]ail Seybold 2024-02-01 00:00:00 2024-02-01 00:00:00 Outpatient KAMRON DUYEN ASTUDILLO [id number] Abigail Seybold 2024-01-31 00:00:00 2024-01-31 00:00:00 Outpatient MD ABIGAIL MIRANDA [id number] A[facility]ail Seybold 2024-01-31 00:00:00 2024-01-31 00:00:00 Outpatient EDENRosario DUYEN ASTUDILLO [id number] A[facility]ail Seybold 2024-01-25 09:00:00 2024-01-25 09:00:00 Outpatient RAY HERRERA [id number] [facility] Sey[facility] 2024-01-10 08:30:00 2024-01-10 08:30:00 Outpatient DUYEN LUNDY [id number] [facility] 2024-01-10 00:00:00 2024-01-10 00:00:00 Outpatient YANELI WU [id number] A[facility]ail Seybold 2024-01-10 00:00:00 2024-01-10 00:00:00 Outpatient VENESSAYSABEL MAHER ABIGAIL ASTUDILLO [id number] [facility] 2024-01-09 00:00:00 2024-01-09 00:00:00 Outpatient YANELI WU [id number] [facility] 2024-01-04 14:30:00 2024-01-04 14:30:00 Outpatient DUYEN LUNDY [id number] [facility] 2024-01-04 00:00:00 2024-01-04 00:00:00 Outpatient MD ABIGAIL MIRANDA [id number] [facility] 2024-01-04 00:00:00 2024-01-04 00:00:00 Outpatient ABIGAIL ASTUDILLO [id number] [facility] 2023-12-26 14:00:00 2023-12-26 14:00:00 Outpatient JYOTI ESPINOZA [id number] [facility] 2023-12-22 13:15:00 2023-12-22 13:15:00 Outpatient JULIO HARTMAN [id number] [facility] 2023-12-21 10:55:00 2023-12-21 10:55:00 Outpatient LAB90 ABIGAIL ASTUDILLO [id number] [facility] 2023-12-21 09:40:00 2023-12-21 09:40:00 Outpatient ABIGAIL ASTUDILLO [id number] [facility] 2023-12-21 08:30:00 2023-12-21 08:30:00 Outpatient RAY HERRERA [id number] [facility] Sey[facility] 2023-12-21 00:00:00 2023-12-21 00:00:00 Outpatient YANELI WU [id number] [facility] 2023-12-21 00:00:00 2023-12-21 00:00:00 Outpatient ABIGAIL ASTUDILLO [id number] [facility] 2023-12-21 00:00:00 2023-12-21 00:00:00 Outpatient MD ABIGAIL MIRANDA [id number] [facility] 2023-12-21 00:00:00 2023-12-21 00:00:00 Outpatient RAY HERRERA ABIGAIL ASTUDILLO [id number] [facility] 2023-12-21 00:00:00 2023-12-21 00:00:00 Outpatient MARCUS HARTMANDORIS ASTUDILLO [id number] [facility] 2023-12-21 00:00:00 2023-12-21 00:00:00 Outpatient MINNIE JULIO ASTUDILLO [id number] [facility] 2023-12-15 08:50:00 2023-12-15 08:50:00 Outpatient MAJO ABIGAIL ASTUDILLO [id number] [facility] 2023-12-15 00:00:00 2023-12-15 00:00:00 Outpatient YANELI WU [id number] [facility] 2023-12-14 13:30:00 2023-12-14 13:30:00 Outpatient YANELI WU [id number] [facility] 2023-12-14 09:30:00 2023-12-14 09:30:00 Outpatient BARRINGTON VILLANUEVA [id number] [facility] 2023-12-14 00:00:00 2023-12-14 00:00:00 Outpatient MD ABIGAIL MIRANDA [id number] [facility] 2023-12-14 00:00:00 2023-12-14 00:00:00 Outpatient MD ABIGAIL MIRANDA [id number] [facility] 2022-06-27 15:34:00 2022-06-27 18:56:00 Emergency X MARK SOMERS ERT [id number] [facility] 2022-06-27 15:34:00 2022-06-27 18:56:00 Emergency Mark Somers [facility] 1.2.840.114 350.1.13.10 4.2.7.2.686 [id number] [facility] 2021-05-03 12:30:00 2021-05-03 21:32:00 Emergency Sidra Suh Megan R [facility] 1.2.840.114 350.1.13.10 4.2.7.2.686 [id number] [facility] 2021-05-03 00:00:00 2021-05-03 00:00:00 Orders Only Doctor Unassigned, [place] [facility] 1.2.840.114 350.1.13.10 4.2.7.2.686 [id number] [facility] 2021-04-22 12:53:19 2021-04-22 13:53:19 Nurse Visit Therapy, [facility] Covid Brenda Lares [facility] [place] 1.840.114 350.1.13.10 4.2.7.2.686 [id number] [facility] 2021-04-22 13:00:00 2021-04-22 13:00:00 Outpatient R BRENDA CHAMPAGNE [facility] [id number] [facility] 2021-04-16 11:17:00 2021-04-16 13:59:00 Emergency Mary Beth Santacruz [facility] 1.2840.114 350.1.13.10 4.2.7.2.686 [id number] [facility] 2020-12-28 17:44:00 2020-12-28 21:05:00 Emergency Geno Emerson [facility] 1.2840.114 350.1.13.10 4.2.7.2.686 [id number] [facility] 2020-12-28 17:44:00 2020-12-28 21:05:00 Emergency Geno Emerson [facility] 1.2.840.114 350.1.13.10 4.2.7.2.686 [id number] 2020-11-25 15:17:00 2020-11-25 17:55:00 Emergency Polo Marie [facility] 1.2.840.114 350.1.13.10 4.2.7.2.686 [id number] [facility] 2020-11-25 15:17:00 2020-11-25 17:55:00 Emergency X POLO MARIE [facility] ERT [id number] [facility] 2020-11-25 15:17:00 2020-11-25 17:55:00 Emergency Polo Marie [facility] 1.2.840.114 350.1.13.10 4.2.7.2.686 [id number] 2020-04-11 17:34:00 2020-04-14 06:46:[address] [facility] [id number] [facility] Results Test Description Test Time Test Comments Results Resul t Comments Source CHEST PA LATERAL 2023-12-21 14:46:24 EXAMINATION: CHEST PA ?LATERAL. HISTORY: abnormal spot on lung previous CXR, asthma. COMPARISON: None. FINDINGS: Cardiac silhouette/Mediast inal contour: ?Within normal limits. Lungs: No focal consolidation. No large pleural effusion. Osseous Structures: ?Mild degenerative changes affect thoracic spine. Postoperative changes of left shoulder, partially imaged. [id number] 21:54:56* Test Item Value Reference Range Interpretation Comments TROPONIN I (test code = 9747099069) 0.003 ng/mL See_Comment [Automated message] The system [...] of biotin. Lab Interpretation (test code = 45023-2) Normal [facility] [id number] 21:51:38* Test Item Value Reference Range Interpretation Comme nts NT-proBNP (test code = 9507991166) 29 pg/mL See_Comment [Automated message] The system which generated this result transmitted reference range: <=125. The reference range was not used to interpret this result as normal/abnormal. LYUDMILA (test code = LYUDMILA) Biotin has been reported to cause a negative bias, interpret results relative to patient's use of biotin. Lab Interpretation (test code = 50891-1) Normal [facility]OLIC PANEL (64171)2022-06-27 21:43:18* Test Item Value Reference Range Interpretation Comme nts NA (test code = 2103620953) 135 mmol/L 135-145 K (test code = 1847705786) 4.5 mmol/L 3.5-5 CL (test code = 3598654273) 100 mmol/L 98-108 CO2 TOTAL (test code = 9905727049) 25 mmol/L 23-31 AGAP (test code = 5208574128) 2-16 BUN (test code = 4515469221) 10 mg/dL 7-23 GLUCOSE (test code = 5562444382) 91 mg/dL 70-110 CREATININE (test code = 1161119806) 0.75 mg/dL 0.5-1.04 TOTAL BILI (test code = 8471180816) 0.7 mg/dL 0.1-1.1 CALCIUM (test code = 0579920151) 9.9 mg/dL 8.6-10.6 T PROTEIN (test code = 4616946847) 7.9 g/dL 6.3-8.2 ALBUMIN (test code = 6599769461) 4.8 g/dL 3.5-5 ALK PHOS (test code = 5239309201) 78 U/L 34-122 ALTv (test code = 1742-6) 15 U/L 5-35 AST(SGOT) (test code = 4091442294) 24 U/L 13-40 eGFR (test code = 7453169208) mL/min/1.73m2 LYUDMILA (test code = LYUDMILA) Association [...] or urine or abnormalities in imaging tests). [facility] 21:43:18* Test Item Value Reference Range Interpretation Comme nts MAGNESIUM (test code = 1667239463) 2.1 mg/dL 1.7-2.4 Lab Interpretation (test cod e = 84190-5) Normal [facility]22-[facility] 21:42:58* Test Item Value Reference Range Interpretation Comme nts LIPASE (test code = 8796634832) 104 U/L 0-220 Lab Interpretation (test cod e = 00249-1) Normal [facility] WITH [id number] 21:30:16* Test Item Value Reference Range Interpretation [...] g/dL 31.6-35.1 H RDW-SD (test code = 43041-7) 38.7 fL 39-49.9 L RDW-CV (test code = 788-0) 11.5 % 12-15.5 L PLT (test code = 777-3) See_Comment [Automated messa ge] The system which generated this result transmitted reference range: 166 - 358 10*3/?L. The reference range was not used to interpret this result as normal/abnormal. MPV (test code = 91549-8) 8.9 fL 9.5-12.9 L NRBC/100 WBC (test code = 1089041518) See_Comment [Automated inZair ssage] The system which generated this result transmitted reference range: 0.0 - 10.0 /100 WBCs. The reference range was not used to interpret this result as normal/abnormal. NRBC x10^3 (test code = 4525435636) See_Comment [Automated messa ge] The system which generated this result transmitted reference range: 10*3/?L. The reference range was not used to interpret this result as normal/abnormal. GRAN MAT (NEUT) % (test code = 770-8) 68.5 % IMM GRAN % (test code = 4113781506) 0.60 % LYMPH % (test code = 736-9) 21.3 % MONO % (test code = 5905-5) 6.8 % EOS % (test code = 713-8) 2.4 % BASO % (test code = 706-2) 0.4 % GRAN MAT x10^3(ANC) (test code = 8213839347) 6.86 10*3/uL 1.88-7.09 IMM GRAN x10^3 (test code = 4866001321) 0.06 10*3/uL 0-0.06 LYMPH x10^3 (test code = 731-0) 2.13 10*3/uL 1.32-3.29 MONO x10^3 (test code = 742-7) 0.68 10*3/uL 0.33-0.92 EOS x10^3 (test code = 711-2) 0.24 10*3/uL 0.03-0.39 BASO x10^3 (test code = 704-7) 0.04 10*3/uL 0.01-0.07 Lab Interpretation (test code = 52424-9) Abnormal [facility] Hospital[facility]P SCREEN FOR GROUP [id number] 17:16:32* Test Item Value Reference Range Interpretation Comme nts Streptococcus pyogenes (group A) antigen (test code = 75227-0) Negative Negative LYUDMILA (test code = LYUDMILA) Performed on [employer]. Lab Interpretation (test code = 71504-6) Normal [facility]2021-04-27 00:53:40* Test Item Value Reference Range Interpretation Comme nts APPEARANCE (test code = 8643451168) Clear Clear COLOR (test code = 7829839850) Straw Yellow A PH (test code = 0738675658) 4.8-8.0 SP GRAVITY (test code = 3049987612) 1.003-1.030 GLU U QUAL (test code = 7511642617) Normal Normal BLOOD (test code = 5447129631) Negative Negative KETONES (test code = 1841608987) Negative Negative PROTEIN (test code = 2887-8) Negative Negative UROBILIN (test code = 3255843733) Normal Normal BILIRUBIN (test code = 7639901610) Negative Negative NITRITE (test code = 7606110183) Negative Negative LEUK ADALI (test code = 7520917419) Negative Negative RBC/HPF (test code = 0069339671) <1 See_Comment [Automated Project 10Ka ge] The system which generated this result transmitted reference range: 0 - 3 HPF. The reference range was not used to interpret this result as normal/abnormal. WBC/HPF (test code = 6809038596) <1 See_Comment [Automated messa ge] The system which generated this result transmitted reference range: 0 - 5 HPF. The reference range was not used to interpret this result as normal/abnormal. BACTERIA (test code = 1593797233) Negative Negative Lab Interpretation (test code = 17454-3) Abnormal [facility] [id number] 22:39:08* Test Item Value Reference Range Interpretation Comme nts TROPONIN I (test code = 2041617741) 0.000 ng/mL See_Comment [Automated message] The system [...] biotin. ? Lab Interpretation (test code = 27229-7) Normal [facility] HospitalTroponin [id number] 21:51:20* Test Item Value Reference Range Interpretation Comme nts TROPONIN I (test code = 4706280658) 0.001 ng/mL See_Comment [Automated message] The system [...] biotin. ? Lab Interpretation (test code = 14469-8) Normal [facility] HospitalN-[facility]MINAL [id number] 21:39:24* Test Item Value Reference Range Interpretation Comme nts NT-proBNP (test code = 3837311821) 18 pg/mL See_Comment [Automated message] The system which generated this result transmitted reference range: <=125. The reference range was not used to interpret this result as normal/abnormal. LYUDMILA (test code = LYUDMILA) Biotin has been reported to cause a negative bias, interpret results relative to patient's use of biotin. Lab Interpretation (test code = 88178-3) Normal [facility] HospitalHepatic Function Panel (ALB, T.PRO, BILI T, BU/BC, ALT, AST, ALK PHOS)2020-11-25 21:30:41* Test Item Value Reference Range Interpretation Comme nts TOTAL BILI (test code = 3537402904) 0.5 mg/dL 0.1-1.1 BILI UNCON (test code = 7094164333) 0.4 mg/dL 0.1-1.1 BILI CONJ (test code = 7003487693) 0.0 mg/dL 0.0-0.3 T PROTEIN (test code = 6796699962) 7.2 g/dL 6.3-8.2 ALBUMIN (test code = 4603858332) 4.2 g/dL 3.5-5.0 ALK PHOS (test code = 7127386483) 83 U/L 34-122 ALTv (test code = 1742-6) 15 U/L 5-35 AST(SGOT) (test code = 0125908368) 23 U/L 13-40 Lab Interpretation (test cod e = 42006-0) Normal [facility] Metabolic Panel (NA, K, CL, CO2, GLUCOSE, BUN, CREATININE, CA)2020-11-25 21:30:20* Test Item Value Reference Range Interpretation Comme nts NA (test code = 8596560832) 137 mmol/L 135-145 K (test code = 7433169324) 3.2 mmol/L 3.5-5.0 L CL (test code = 3101495679) 106 mmol/L 98-108 CO2 TOTAL (test code = 5514327030) 23 mmol/L 23-31 AGAP (test code = 7628169384) 2-16 BUN (test code = 9199486151) 4 mg/dL 7-23 L GLUCOSE (test code = 5933039504) 167 mg/dL 70-110 H CREATININE (test code = 7131959739) 0.60 mg/dL 0.50-1.04 CALCIUM (test code = 2585122047) 8.9 mg/dL 8.6-10.6 eGFR Calculation (Non-) (test code = 7184129897) mL/min/1.73m2 eGFR Calculation () (test code = 5468789748) mL/min/1.73m2 LYUDMILA (test code = LYUDMILA) Association [...] imaging tests). Lab Interpretation (test code = 71698-9) Abnormal [facility] HospitalLipase [id number] 21:30:20* Test Item Value Reference Range Interpretation Comme nts LIPASE (test code = 5889292783) 73 U/L 0-220 Lab Interpretation (test cod e = 52164-0) Normal [facility] HospitalChes 1 [id number] 21:02:07No acute cardiopulmonary abnormality. Preliminary Report Dictated [...] fixation of the left humerusis partially visualized. Demb, Radiant Results Inft User - 11/25/2020 4:03 [...] agree with theabove report.[facility] with Hnxdhtntxatu8661-84-86 20:57:54* Test Item Value Reference Range Interpretation Comme nts WBC (test code = 6690-2) See_Comment [Automated Project 10Ka iCIMS] The system which generated this result transmitted reference range: 4.30 - 11.10 10*3/?L. The reference range was not used to interpret this result as normal/abnormal. RBC (test code = 789-8) See_Comment [Automated Project [employer] iCIMS] The system which generated this result transmitted [...] 33.7 g/dL 31.6-35.1 RDW-SD (test code = 11087-4) 42.4 fL 39.0-49.9 RDW-CV (test code = 788-0) 12.2 % 12.0-15.5 PLT (test code = 777-3) See_Comment [Automated Project [employer] iCIMS] The system which generated this result transmitted reference range: 166 - 358 10*3/?L. The reference range was not used to interpret this result as normal/abnormal. MPV (test code = 56414-7) 8.9 fL 9.5-12.9 L NRBC/100 WBC (test code = 4847399575) See_Comment [Automated me ssage] The system which generated this result transmitted reference range: 0.0 - 10.0 /100 WBCs. The reference range was not used to interpret this result as normal/abnormal. NRBC x10^3 (test code = 7072979777) <0.01 See_Comment [Automated messa ge] The system which generated this result transmitted reference range: 10*3/?L. The reference range was not used to interpret this result as normal/abnormal. GRAN MAT (NEUT) % (test code = 770-8) 68.9 % IMM GRAN % (test code = 2763678074) 0.50 % LYMPH % (test code = 736-9) 22.0 % MONO % (test code = 5905-5) 5.7 % EOS % (test code = 713-8) 2.6 % BASO % (test code = 706-2) 0.3 % GRAN MAT x10^3(ANC) (test code = 6127139670) 4.49 10*3/uL 1.88-7.09 IMM GRAN x10^3 (test code = 0527505313) 0.03 10*3/uL 0.00-0.06 LYMPH x10^3 (test code = 731-0) 1.43 10*3/uL 1.32-3.29 MONO x10^3 (test code = 742-7) 0.37 10*3/uL 0.33-0.92 EOS x10^3 (test code = 711-2) 0.17 10*3/uL 0.03-0.39 BASO x10^3 (test code = 704-7) <0.03 0.01-0.07 Lab Interpretation (test code = 01773-2) Abnormal [facility]- CT ABD PELVIS [id number] 20:28:00FAX: N Ebonie Parry MD [place]: St: REG Name: RENEE TAMAYO [facility] : 1980 Age/S: 40/F [address] [facility] Unit: [id number] Loc: .[address] Phys: [place] [id number] Acct: [id number] Dis Date: Status: REG ER PHONE #: [phone] Exam Date: 04/11/20202012 FAX #: [phone] Reason: PAIN EXAMS: CPT CODE: [id number] CT ABD PELVIS W/CONT 10598 LOCATION: T18 EXAM: CT ABDOMEN AND PELVIS WITH CONTRAST INDICATION: Abdominal pain, lower abdominal pain COMPARISON: None. TECHNIQUE: Multiple CT images of the abdomen and pelvis were obtained with reconstructions in the coronal and sagittal planes. 100 ml of Isovue 300 was given intravenously. Up-to-date CT equipment and radiation dose reduction techniques were utilized. Automatic exposure control was utilized. FINDINGS:Lung bases are clear. Fatty infiltration throughout the liver noted. Spleen, adrenal glands and pancreas normal. Gallbladder is unremarkable. No biliary distention. Portal vasculature is patent. Kidneys enhance symmetrically. No focal abnormality or hydronephrosis is seen. There is no hydroureter.Urinary bladder appearance. Uterus and adnexal structures are age-appropriate in appearance. The appendix is normal. There is no evidence for acute appendicitis. No free air or free fluid is present.No diverticulosis or evidence of colitis is seen. [...] (2031 PAGE 1 Signed Report COMPREHENSIVE METABOLIC [id number] 18:37:00* Test Item Value Reference Range Interpretation [...] code = ALKP) 90 Units/L 50.0-136.0 N [id number] 18:37:00* Test Item Value Reference Range Interpretation Comme nts LIPASE (test code = LIP) 140 Units/L 65.0-230.0 N [id number] 18:37:00* Test Item Value Reference Range Interpretation Comme nts ALCOHOL (test code = ALC) 0.00 gm/dL 0.00-0.00 N ETHYL ALCOHOL VA LUES - INTERPRETATION: 0.050 GM/DL - NOT INTOXICATED 0.100 GM/DL - INTOXICATED 0.350-0.450 GM/DL - SEVERELY INTOXICATED 0.550 GM/DL- FATAL INTOXICATION DRUGS OF ABUSE SCREEN [id number] 18:33:00* Test Item Value Reference Range Interpretation [...] (test code = [place]) NEGATIVE NEGATIVE URINALYSIS [id number] 18:32:00* Test Item Value Reference Range Interpretation [...] code = BACU) TRACE NONE UR HCG [id number] 18:32:00* Test Item Value Reference Range Interpretation Comme nts UR HCG QUAL (test code = HCGQLU) NEGATIVE NEGATIVE URINALYSIS [id number] 18:31:00* Test Item Value Reference Range Interpretation [...] (test code = BACU) NONE UR HCG [id number] 18:31:00* Test Item Value Reference Range Interpretation Comme nts UR HCG QUAL (test code = HCGQLU) NEGATIVE COMPREHENSIVE METABOLIC [id number] 18:27:00* Test Item Value Reference Range Interpretation [...] ( test code = ALKP) Units/L 50.0-136.0 [id number] 18:27:00* Test Item Value Reference Range Interpretation Comme nts LIPASE (test code = LIP) Units/L 65.0-230.0 [id number] 18:27:00* Test Item Value Reference Range Interpretation Comme nts ALCOHOL (test code = ALC) gm/dL 0.00-0.00 CBC W/AUTO [id number] 18:16:00* Test Item Value Reference Range Interpretation [...] code = BA#) 0.1 K/mm3 0.0-0.2 N History and Physical Notes Date/Time Note Provider Source 2023-12-22 13:26:32 [facility] Chief Complaint Patient presents with Gerd HPI HPI Renee Davis is a 43 year old female is here for Gerd C/o nausea, epigastric pain History Past Medical History: Diagnosis Date Asthma (HHS-HCC) Hypertriglyceridemia Past Surgical History: Procedure Laterality Date LEFT SHOULDER SURGERY TUBAL LIGATION Social History Socioeconomic History Marital status: Tobacco Use Smoking status: Every Day Current packs/day: 0.50 Average packs/day: 0.5 packs/day for 27.3 years (13.6 ttl pk-yrs) Types: Cigarettes Start date: 1996 Smokeless tobacco: Never Vaping Use Vaping status: Never Used Substance and Sexual Activity Alcohol use: Yes Comment: rare Drug use: Not Currently Sexual activity: Not Currently Family History Problem Relation Name Age of Onset Heart attack Mother Diabetes Mellitus Mother Thyroid Disease Mother Skin Cancer Father Current Outpatient Medications Medication Sig Dispense Refill Albuterol HFA 108 (90 Base) MCG/ACT IN AERS Inhale 2 puffs into the lungs every 6 hours as needed for wheezing. 8 g 3 Albuterol Sulfate 1.25 MG/3ML inhalation Inhalant Solution Take 3 mL (1.25 mg total) by nebulization every 6 hours as needed for wheezing. 3 mL 3 Budesonide-Formoterol Fumarate (Symbicort) 160-4.5 MCG/ACT inhalation Aerosol Inhale 2 puffs into the lungs 2 times daily. 10.2 g 1 Gabapentin 100 MG oral Capsule Take 1 capsule (100 mg total) by mouth 2 times daily as needed No driving or drinking alcohol with medication. 60 capsule 0 Meloxicam 15 MG oral Tablet Take 1 tablet (15 mg total) by mouth daily. 15 tablet 0 Montelukast (SINGULAIR) 10 MG oral Tablet tablet Take 1 tablet (10 mg total) by mouth nightly. 30 tablet 0 Pantoprazole Sodium 40 MG oral Tablet Delayed Response Take 1 tablet (40 mg total) by mouth daily. 30 tablet 0 predniSONE (DELTASONE) 10 MG oral tablet Take prednisone 40 mg a day for 3 days, then 30 mg a day for 3 days, then 20 mg a day for 3 days, then10 mg a day for 3 days then stop.. 30 tablet 0 No current facility-administered medications for this visit. Allergies Allergies Allergen Reactions Propoxyphene Other Reaction(s): Nausea/Vomiting, Unknown Review of Systems Review of Systems Constitutional: Negative. HENT: Negative. Negative for mouth sores, postnasal drip, sore throat, trouble swallowing and voice change. Eyes: Negative for visual disturbance. Respiratory: Negative for cough, chest tightness, shortness of breath and wheezing. Cardiovascular: Negative for chest pain, palpitations and leg swelling. Gastrointestinal: Positive for abdominal pain and nausea. Musculoskeletal: Negative. Skin: Negative. Allergic/Immunologic: Negative. Neurological: Negative. Hematological: Negative for adenopathy. Does not bruise/bleed easily. Psychiatric/Behavioral: The patient is not nervous/anxious. Vitals BP 126/81 (Side: Right Arm, Position: SITTING, Cuff Size: Medium Adult) | Pulse 94 | Temp 97.9 ?F (36.6 ?C) (Oral) | Resp 16 | Ht 5' 9" (1.753 m) | Wt 213 lb (96.6 kg) | LMP 12/02/2023 (Approximate) | BMI 31.45 kg/m? Physical Exam Physical Exam Vitals and nursing note reviewed. Constitutional: Appearance: Normal appearance. She is normal weight. HENT: Head: Normocephalic and atraumatic. Nose: Nose normal. Mouth/Throat: Mouth: Mucous membranes are moist. Eyes: Extraocular Movements: Extraocular movements intact. Conjunctiva/sclera: Conjunctivae normal. Pupils: Pupils are equal, round, and reactive to light. Cardiovascular: Rate and Rhythm: Normal rate and regular rhythm. Pulses: Normal pulses. Heart sounds: Normal heart sounds. No murmur heard. No friction rub. No gallop. Pulmonary: Effort: Pulmonary effort is normal. No respiratory distress. Breath sounds: Wheezing present. No rhonchi or rales. Chest: Chest wall: No tenderness. Abdominal: General: Abdomen is flat. Bowel sounds are normal. There is no distension. Palpations: Abdomen is soft. There is no mass. Tenderness: There is no abdominal tenderness. There is no right CVA tenderness, left CVA tenderness, guarding or rebound. Hernia: No hernia is present. Musculoskeletal: General: No swelling or tenderness. Normal range of motion. Cervical back: Normal range of motion and neck supple. Right lower leg: No edema. Left lower leg: No edema. Skin: General: Skin is warm. Coloration: Skin is not jaundiced or pale. Findings: No bruising, erythema, lesion or rash. Neurological: General: No focal deficit present. Mental Status: She is alert and oriented to person, place, and time. Mental status is at baseline. Cranial Nerves: No cranial nerve deficit. Sensory: No sensory deficit. Motor: No weakness. Coordination: Coordination normal. Gait: Gait normal. Deep Tendon Reflexes: Reflexes normal. Psychiatric: Mood and Affect: Mood normal. Assessment and Plan 1. Gastroesophageal reflux disease, unspecified whether esophagitis present -EGD -Antireflux measures -Quit smoking -No NSAIDs - GI CASE REQUEST; Standing - sodium chloride 0.9 % infusion 1,000 mL - NURSE COMM 3; Standing - ECG- ADULT; Future - GI CASE REQUEST 2. Epigastric pain -No NSAIDs - GI CASE REQUEST; Standing - sodium chloride 0.9 % infusion 1,000 mL - NURSE COMM 3; Standing - ECG- ADULT; Future - GI CASE REQUEST Discussed with Renee assessment and plan of care. Renee has no questions or concerns at this time and has voiced understanding. Follow Up No follow-ups on file. [facility] [address] [id number] Julio Hartman MD [facility] Notes Date/Time Note Provider Source 2024-03-22 13:48:39 Patient is here for Well Woman exam. C/o: n/a LMP: 03/17/2024 Current Birthcontrol:tubal ligation Last Pap: unsure-per pt was normal. Hx of abnormal pap smears: yes Last Mammogram:never PHQ score:2 MAIKEL score:4 Examination chaperoned by Pavan Carrillo MA II. 1 pap and 1 orange swab collected by [facility] 2024-03-06 13:13:13 Chief Complaint Patient presents with Follow-up Follow up on anxiety and depression. She states that she's doing better. Anabel Bear MA II [facility] 2024-01-10 08:32:07 Chief Complaint Patient presents with Physical Headache History of migraines. She was on medication in the past but can't remember name. Back Pain Low back pain. The entire lower back is painful due to scoliosis. No past treatment. Anabel Bear MA II [facility] 2023-12-22 13:05:56 Chief Complaint Patient presents with Gerd Rosenda Almendarez MA II T [facility] 2023-12-21 13:24:30 [place] [facility] [place] [facility] 2023-12-21 08:22:13 Chief Complaint Patient presents with Consultation Moderate persistent asthma with acute exacerbation, abnormal finding on lung imaging Yasmeen Hernandez CMA II Yasmeen Hernandez CMA II [facility] 2023-12-14 13:07:17 Chief Complaint Patient presents with Asthma Back Pain Jenny Corcoran LVN [facility] 2020-04-11 18:25:00 [facility] ([facility] EMERGENCY PROVIDER REPORT REPORT#:[id number] REPORT STATUS: Signed DATE:04/11/20 TIME: 1824 PATIENT: RENEE TAMAYO UNIT #: [id number] ROOM/BED: AGE: 40 SEX: F PCP PHYS: No Primary or Family Physician SERVICE AUTHOR: Ebonie Parry MD * ALL edits or amendments must be made on the electronic/computer document * HPI-Abd Pain F Under 40 General Confirmed Patient Yes Initial Greet Date/Time 04/11/20 1739 Presentation Chief Complaint Abdominal pain Free Text HPI Notes Free Text HPI Notes 40-year-old white female with PMH of asthma and depression brought in by EMS with complaint of 10/10 lower abdominal cramping x 30 minutes. LMP 03/29/2020. Patient denies dysuria, cough, nausea, vomiting, diarrhea or fever. Patient did not receive any medication in route. Vital signs were stable in transport. Risk-Abd Pain F Under 40 )( Ectopic Risk factors reviewed Review of Systems Free Text ROS Notes Free Text ROS Notes Constitutional: Denies fever, denies chills, denies generalized weakness ENT: Denies nasal congestion, denies sore throat Respiratory: Denies cough, denies dyspnea on exertion, denies shortness of breath, denies wheezing Cardiovascular: Denies chest pain, denies LALA, denies edema, denies orthopnea, denies palpitations, denies syncope ABD: + abdominal pain, denies nausea, vomiting, or diarrhea. Musculoskeletal: Denies back pain, denies extremity pain, denies extremity swelling, denies joint pain, denies joint swelling, denies neck pain Skin: Denies laceration, denies rash, denies abrasion, denies abscess, denies erythema Neurologic: Denies headache, denies focal weakness, denies dizziness, denies LOC , denies altered mental status, denies slurred speech, denies lightheadedness, denies syncope Past Medical History - Adult Stated Complaint LOWER ABD PAIN Allergies Coded Allergies: No Known Allergies (04/11/20) Home Medications Reported Medications DULoxetine DR (CYMBALTA) 30 MG PO DAILY busPIRone (BUSPAR) 5 MG PO BID ALBUTEROL (PROAIR HFA 90 MCG/ACT 8.5 GM) 1 PUFF INH RTQ6H Past Medical History: Reports: Asthma, Depression/mood disorder. Past Surgical History: Reports: Bilateral tubal ligation. Smoking status for patients 13 years old or older: Current every day smoker Physical Exam Vital Signs Vital Signs First Documented: Result Date Time Pulse Ox 98 04/11 1734 B/P 130/75 04/11 1734 B/P Mean 93 04/11 173 O2 Delivery Room air 04/11 1734 Temp 36.7 04/11 1734 Pulse 88 04/11 1734 Resp 20 04/11 1734 Last Documented: Result Date Time Pulse Ox 98 04/11 2130 B/P 102/66 04/11 2130 B/P Mean 78 04/11 2130 Pulse 83 04/11 2130 Resp 18 04/11 2130 O2 Delivery Room air 04/11 2039 Temp 36.9 04/11 2039 Review of Vital Signs Reviewed Free Text PE Notes Free Text PE Notes GEN: Well-appearing/NAD, awake, alert, not toxic appearing, cooperative Head: Atraumatic/normocephalic Eyes: PERRLA, conjunctiva clear, EOMI, no nystagmus ENT: Atraumatic, airway patent, mucous membranes moist, pharynx normal Neck: Supple, no meningismus, full range of motion, no adenopathy, no midline vertebral tenderness, no tracheal deviation RESP: No respiratory distress, atraumatic, no rales, no rhonchi, no wheezing, no retractions CV: Heart rate normal, regular rhythm, no gallop, no murmurs, no rubs ABD: Atraumatic, soft, nontender, no guarding, no rebound, no distention EXT: No gross abnormalities Skin: Atraumatic, color normal, no rash, warm, dry, turgor normal, no swelling Neuro: Oriented x3, speech normal, no motor deficits, no sensory deficits, CN II - XII grossly intact Psych: Normal thought content Interpretation Diagnostics Lab Results Interpretation Results Laboratory Tests 04/11/20 175: [Embedded Image Not Available] Laboratory Tests: 04/11 1757 Chemistry Sodium (134.0 - 147.0 mmol/l) 137 [...] % (Auto) (23.0 - 38.0 %) 25.9 [place] % (Auto) (1.0 - 10.0 %) 6.1 Eos % (Auto) (1.0 - 5.0 %) 5.0 Baso % (Auto) (0.0 - 1.0 %) 0.6 Neut # (Auto) (2.4 - 6.3 K/mm3) 5.5 Lymph # (Auto) (1.2 - 4.0 K/mm3) 2.3 [place] # (Auto) (0.0 - 0.6 K/mm3) 0.5 [...] pH (5.0 - 9.0) 6.5 Ur Specific [place] (1.000 - 1.030) 1.010 Urine Protein (NEGATIVE [...] TRACE Urine HCG, Qual (NEGATIVE) NEGATIVE Recent Impressions: CAT SCAN - CT ABD PELVIS W/CONT 04/11 2000 Report Impression - Status: SIGNED Entered: 04/11/20202031 IMPRESSION: Fatty liver. Normal appendix. No bowel obstruction. No diverticulosis or evidence of colitis. Impression By: [email or web address] - Kip Jeffery M.D. Re-Evaluation [facility] )( Re-Evaluation/Progress #1 Text/Dict Note Patient states that she continues to have abdominal pain even after getting medication. Will CT scan. Time of Re-Eval 1954 )( Re-Eval Status Unchanged Re-Evaluation/Progress #2 Text/Dict Note Discussed test results with patient. Advised patient to follow-up with PCP and advised patient return to ED if condition worsens. Patient has remained medically stable during the ER visit. Time of Eval 2099 Re-Eval Status Improved ED Course Medication(s) Ordered Medication(s) Ordered: Autonomic Drugs Sig/Alex Start time Last Medication Dose Route Stop Time Status Admin Dicyclomine HCl 20 MG X1ED STA 04/11 1747 DC 04/11 PO 04/11 1748 1815 Diagnostic Agents Sig/Alex Start time Last Medication Dose Route Stop Time Status Admin Iopamidol 0 .STK-MED ONE 04/11 2001 DC 04/11 IV 2006 Electrolytic, Caloric, And Graham Sig/Alex Start time Last Medication Dose Route Stop Time Status Admin Sodium Chloride 1,000 ML X1ED STA 04/11 2009 DC 04/11 IV 04/11 Patient Discharge Departure Vital Signs/Condition Vital Signs First Documented: Result Date Time Pulse Ox 98 04/11 1734 B/P 130/75 04/11 1734 B/P Mean 93 04/11 1734 O2 Delivery Room air 04/11 1734 Temp 36.7 04/11 1734 Pulse 88 04/11 1734 Resp 20 04/11 1734 Last Documented: Result Date Time Pulse Ox 98 04/11 2130 B/P 102/66 04/11 2130 B/P Mean 78 04/11 213 Pulse 83 04/11 2130 Resp 18 04/11 2130 O2 Delivery Room air 04/11 2039 Temp 36.9 04/11 2039 All vital signs available at the time of this entry have been reviewed. Condition Stable Clinical Impression Clinical Impression Primary Impression: Abdominal pain Disposition Decision Discharge )( Discharged to Home Yes )( Time 2100 )( Date 04/11/20 Discharge/Care Plan Prescriptions RAISA HERNANDEZ Referrals No Primary or Family Physician (PCP/Family) at [address] [facility] #:[phone] END OF REPORT [facility]
[2024-11-30] MEDS ORDERED: ONDANSETRON 4 MG/2 ML VIAL ONE (00:55)
[2024-11-30] MEDS ORDERED: NA CHLORIDE 0.9% 1,000 ML ONE (00:55)
[2024-11-30] MEDS ORDERED: FENTANYL CITR 100 MCG/2 ML ONE (00:55)
[2024-11-30 01:00] LABS: Specific Gravity 1.028 (1.005-1.030); Urine Bilirubin NEGATIVE (Negative); Urine Blood Negative (Negative); Urine Clarity Clear (Clear); Urine Color Yellow (Yellow); Urine Glucose NEGATIVE (Negative); Urine Ketones NEGATIVE (Negative); Urine Microscopic Reflex YN NO UMIC; Urine Nitrite NEGATIVE (Negative); Urine Protein NEGATIVE (Negative); Urine Urobilinogen Normal (Normal)
[2024-11-30 01:19] LABS: Absolute Eosinophils 0.1 K/uL (0-0.5); Absolute Lymphocytes (CBC) 1.8 K/uL (0.7-4.9); Absolute Monocytes 0.5 K/uL (0.1-1.3); Absolute Neutrophil 5.3 K/uL (1.8-8.0); Basophils % 0.3 % (0-1.3); Eosinophils % 1.4 % (0-4.4); Hematocrit 36.3 % (36.0-45.0); Hemoglobin 12.2 g/dL (12.0-15.0); Lymphocytes % 23.6 % (15.3-44.8); MCH 29.4 pg (27.0-35.0); MCHC 33.5 g/dL (32.0-36.0); MCV 87.7 fL (80-100); MPV 6.9 fL (7.6-11.3); Monocytes % 5.8 % (3.3-12.3); Neutrophils % 68.9 % (41.7-73.7); Nucleated Red Blood Cells % 0.1 % (0-0); Platelets 266 thou/uL (152-406); RBC Red Blood Cell Count 4.14 M/uL (3.86-4.86); Red Cell Distribution Width 13.5 % (12.1-15.2)
[2024-11-30 01:28] LABS: ALT/SGPT 34 U/L (13-56); AST/SGOT 20 U/L (15-37); Albumin 3.4 g/dL (3.4-5.0); Albumin/Globulin Ratio 0.8 (1.1-1.8); Alkaline Phosphatase 103 U/L (45-117); Anion Gap 11.3 mEq/L (5.0-15.0); BUN Blood Urea Nitrogen 7 mg/dL (7-18); Bicarbonate 26 mEq/L (21-32); Bilirubin Total 0.2 mg/dL (0.2-1.0); Globulin 4.1 g/dL (2.3-3.5); Glomerular Filtration Rate 80 ml/min (=/>90); Glucose Level 115 mg/dL (74-106); Lipase 46 U/L (13-75); Potassium 3.3 mEq/L (3.5-5.1); Protein, Total 7.5 g/dL (6.4-8.2); Sodium Level 140 mEq/L (136-145)
[2024-11-30 01:32] LABS: Bilirubin Direct < 0.2 mg/dL (0-0.2)
[2024-11-30] MEDS ORDERED: POTASSIUM 25 MEQ EFFERV TAB ONE (02:08)
--- NOTE | 2024-11-30 02:33 | ER ---
Nurse's Notes [facility] Name: Susana Florez Age: 44 yrs Sex: Female : 1980 Arrival Date: 11/29/2024 Time: 21:11 Bed DX4 Private MD: Diagnosis: Fall on same level, unspecified;Unspecified injury of head, initial encounter;Strain of muscle, fascia and tendon at neck level, initial encounter;Strain of muscle and tendon of back wall of thorax;Strain of muscle and tendon of front wall of thorax;Abdominal tenderness-contusion;Hypokalemia Presentation: 11/29 21:41 Chief complaint: Patient states: I slipped and fell outside of work around 1900. I have bm8 pain all down my right side. Coronavirus screen: At this time, the client does not indicate any symptoms associated with coronavirus-19. Ebola Screen: Patient negative for fever greater than or equal to 101.5 degrees Fahrenheit, and additional compatible Ebola Virus Disease symptoms Patient denies exposure to infectious person. Patient denies travel to an Ebola-affected area in the 21 days before illness onset. No symptoms or risks identified at this time. Initial Sepsis Screen: Does the patient meet any 2 criteria? No. Patient's initial sepsis screen is negative. Does the patient have a suspected source of infection? No. Patient's initial sepsis screen is negative. Risk Assessment: Do you want to hurt yourself or someone else? Patient reports no desire to harm self or others. Onset of symptoms was November 29, 2024 at 19:00. 21:41 Method Of Arrival: Ambulatory bm8 21:41 Acuity: DIMPLE 3 bm8 Triage Assessment: 21:42 General: Appears in no apparent distress. comfortable, Behavior is calm, cooperative, bm8 appropriate for age. Pain: Complains of pain in right side Pain currently is 9 out of 10 on a pain scale. Neuro: No deficits noted. Level of Consciousness is awake, alert, obeys commands, Oriented to person, place, time, situation, Appropriate for age. Musculoskeletal: Circulation, motion, and sensation intact. Capillary refill < 3 seconds, in bilateral fingers. Range of motion: intact in all extremities, Reports pain in right side. [employer] DEAN: 21:42 LMP 10/31/2024, unknown bm8 Historical: - Allergies: 21:42 Darvocet-N 100; bm8 - Home Meds: 21:42 albuterol sulfate 90 mcg/actuation Inhl aebs 1 puff every 4-6 hours [Active]; bm8 budesonide 180 mcg/actuation inhalation Aerosol Powder, Breath Activated 2 inhalations 2 times per day [Active]; Flexeril Oral 5 mg daily [Active]; Protonix 40 mg Oral tablet, delayed release (enteric coated) 1 tab daily [Active]; Singulair 10 mg Oral tablet 1 tab daily [Active]; topiramate 50 mg oral tablet 1 tab 2 times per day [Active]; duloxetine 60 mg oral capsule,delayed release (e.c.) 1 cap daily [Active]; gabapentin 300 mg oral capsule 1 cap 3 times per day [Active]; sumatripatan 25 mg daily [Active]; - PMHx: 21:42 Anxiety; Asthma; Depression; GERD; Migraines; bm8 - PSHx: 21:42 Ligation of fallopian tube; shoulder surgery; bm8 - Immunization history:: Adult Immunizations up to date. - Infectious Disease History:: Denies. - Social history:: Smoking status: Patient reports the use of cigarette tobacco products, Patient/guardian denies using alcohol, street drugs. - Family history:: not pertinent. Screenin:[address] [facility] ED Fall Risk Assessment (Adult) History of falling in the last 3 months, bm8 including since admission Yes- single mechanical fall (1 pt) Confusion or Disorientation No (0 pts) Intoxicated or Sedated No (0 pts) Impaired Gait No (0 pts) Mobility Assist Device Used No (0 pt) Altered Elimination No (0 pt) Score/Fall Risk Level 0 - 2 = Low Risk Oriented to surroundings, Maintained a safe environment, Educated pt \\T\\ family on fall prevention, incl call for assistance when getting out of bed, Assessed \\T\\ reinforced patient's understanding of fall precautions. Abuse screen: Denies threats or abuse. Denies injuries from another. Nutritional screening: No deficits noted. Tuberculosis screening: No symptoms or risk factors identified. Assessment: 21:41 General: see triage assessment. bm8 11/30 00:55 Reassessment: Patient appears in no apparent distress at this time. No changes from 8 previously documented assessment. Patient and/or family updated on plan of care and expected duration. Pain level reassessed. Patient is alert, oriented x 3, equal unlabored respirations, skin warm/dry/pink. 02:34 Reassessment: Patient appears in no apparent distress at this time. Patient and/or bm8 family updated on plan of care and expected duration. Pain level reassessed. Patient is alert, oriented x 3, equal unlabored respirations, skin warm/dry/pink. Patient states feeling better. Patient states symptoms have improved. 03:34 Reassessment: Patient appears in no apparent distress at this time. Patient and/or lg3 family updated on plan of care and expected duration. Pain level reassessed. Patient is alert, oriented x 3, equal unlabored respirations, skin warm/dry/pink. Patient states feeling better. Patient states symptoms have improved. Vital Signs: 11/29 21:41 BP 140 / 93; Pulse 89; Resp 18; Temp 97.3; Pulse Ox 99% ; Weight 90.72 kg; Height 5 ft. bm8 9 in. ; Pain 9/10; 11/30 00:55 BP 131 / 89; Pulse 84; Resp 17 S; Pulse Ox 99% on R/A; bm8 03:34 BP 137 / 88; Pulse 89; Resp 17 S; Pulse Ox 100% on R/A; lg3 11/29 21:41 Body Mass Index 29.53 (90.72 kg, 175.26 cm) bm8 11/29 21:41 Pain Scale: Adult bm8 [place] Coma Score: 00:57 Eye Response: spontaneous(4). Motor Response: obeys commands(6). Verbal Response: ryann oriented(5). Total: 15. ED Course: 11/29 21:13 Patient arrived in ED. jj6 21:40 Abel Altamirano, RN is Primary Nurse. bm8 21:41 Patient has correct armband on for positive identification. bm8 21:42 Triage completed. bm8 21:42 Arm band placed on right wrist. bm8 21:45 Piero Velasquez MD is Attending Physician. ryann 11/30 00:21 Missed attempt(s): 20 gauge in left forearm. vk 00:52 LFT's Sent. bm8 00:52 Lipase Sent. bm8 00:52 Basic Metabolic Panel Sent. bm8 00:52 CBC with Diff Sent. bm8 00:52 Test, Urine Sent. bm8 00:52 Type And Screen Sent. bm8 00:52 Urinalysis w/ reflexes Sent. bm8 00:56 Inserted saline lock: 22 gauge in left antecubital area, using aseptic technique. bm8 Flushed with 10 mL NS. 01:48 Chest Abdomen Pelvis W Cont In Process Unspecified. EDMS 01:48 Head C Spine Mpr Wo Con In Process Unspecified. EDMS 02:32 Vivek Altamirano MD is Referral Physician. [facility] 03:34 No provider procedures requiring assistance completed. IV discontinued, intact, lg3 bleeding controlled, No redness/swelling at site. Pressure dressing applied. Administered Medications: 01:19 Drug: fentaNYL (PF) IVP 25 mcg IVP once Route: IVP; Site: right forearm; cg 02:34 Follow up: Response: No adverse reaction; Marked relief of symptoms bm8 01:19 Drug: Ondansetron IVP 4 mg IVP once; over 2 minutes Route: IVP; Site: right forearm; cg 02:34 Follow up: Response: No adverse reaction bm8 01:20 Drug: NS 0.9% IV 1000 ml IV at 1 bolus Per protocol; to be given as a bolus over 60 cg minutes Route: IV; Rate: 1 bolus; Site: right forearm; 02:34 Follow up: Response: No adverse reaction; IV Status: Completed infusion; IV Intake: bm8 1000ml 02:11 Drug: Potassium PO Effervescent Tablet 25 mEq PO once; dissolve in 4 ounces of water or kj2 juice Route: PO; 02:34 Follow up: Response: No adverse reaction bm8 Medication: 11/29 21:41 VIS not applicable for this client. bm8 Intake: 11/30 02:34 IV: 1000ml; Total: 1000ml. bm8 Outcome: 02:32 Discharge ordered by . ryann 03:34 Discharged to home ambulatory, with significant other, lg3 03:34 Condition: stable 03:34 Discharge instructions given to patient, Instructed on discharge instructions, follow up and referral plans. medication usage, Demonstrated understanding of instructions, follow-up care, medications, Prescriptions given X 2, 03:36 Patient left the ED. lg3 Signatures: Dispatcher [employer] EDPR Piero Velasquez MD MD cha Garcia, Cindy, RN RN Melania Cisse RN RN lg3 Rosmery Elam Vivian vk Altamirano, Abel, RN RN bm8 Joanne Snow RN RN kj2 Corrections: (The following items were deleted from the chart) 11/29 21:47 21:42 PMHx: "not supposed to take NSAIDS per GI" (shoulder surgery); crystal bm8
--- NOTE | 2024-11-30 02:33 | EDPHYS ---
Physician Documentation [facility] Name: Susana Florez Age: 44 yrs Sex: Female : 1980 Arrival Date: 11/29/2024 Time: 21:11 Bed DX4 Private MD: ED Physician Piero Velasquez HPI: 11/30 00:54 This 44 yrs old Female presents to ER via Ambulatory with complaints of Fall ryann Injury, RT SIDE PAIN. 00:54 Details of fall: The patient fell from an upright position, while walking. Onset: The ryann symptoms/episode began/occurred just prior to arrival. Associated injuries: The patient sustained neck injury, upper back injury, injury to the low back, injury to the chest, injury to the abdomen. The patient has not experienced similar symptoms in the past. 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: 11/29 21:42 LMP 10/31/2024, unknown bm8 Historical: - Allergies: 21:42 Darvocet-N 100; bm8 - Home Meds: 21:42 albuterol sulfate 90 mcg/actuation Inhl aebs 1 puff every 4-6 hours [Active]; bm8 budesonide 180 mcg/actuation inhalation Aerosol Powder, Breath Activated 2 inhalations 2 times per day [Active]; Flexeril Oral 5 mg daily [Active]; Protonix 40 mg Oral tablet, delayed release (enteric coated) 1 tab daily [Active]; Singulair 10 mg Oral tablet 1 tab daily [Active]; topiramate 50 mg oral tablet 1 tab 2 times per day [Active]; duloxetine 60 mg oral capsule,delayed release (e.c.) 1 cap daily [Active]; gabapentin 300 mg oral capsule 1 cap 3 times per day [Active]; sumatripatan 25 mg daily [Active]; - PMHx: 21:42 Anxiety; Asthma; Depression; GERD; Migraines; bm8 - PSHx: 21:42 Ligation of fallopian tube; shoulder surgery; bm8 - Immunization history:: Adult Immunizations up to date. - Infectious Disease History:: Denies. - Social history:: Smoking status: Patient reports the use of cigarette tobacco products, Patient/guardian denies using alcohol, street drugs. - Family history:: not pertinent. ROS: 11/30 00:55 Constitutional: Negative for fever, chills, and weight loss, Eyes: Negative for injury, ryann pain, redness, and discharge, ENT: Negative for injury, pain, and discharge, Neck: Negative for injury, pain, and swelling, Cardiovascular: Negative for chest pain, palpitations, and edema, Respiratory: Negative for shortness of breath, cough, wheezing, and pleuritic chest pain, : Negative for injury, bleeding, discharge, and swelling, MS/Extremity: Negative for injury and deformity, Skin: Negative for injury, rash, and discoloration, Neuro: Negative for headache, weakness, numbness, tingling, and seizure, Psych: Negative for depression, anxiety, suicide ideation, homicidal ideation, and hallucinations, Allergy/Immunology: Negative for hives, rash, and allergies, Endocrine: Negative for neck swelling, polydipsia, polyuria, polyphagia, and marked weight changes, Hematologic/Lymphatic: Negative for swollen nodes, abnormal bleeding, and unusual bruising, Abdomen/GI: Positive for abdominal pain, abdominal cramps, abdominal distension, Exam: 00:55 Constitutional: This is a well developed, well nourished patient who is awake, alert, ryann and in no acute distress. Head/Face: Normocephalic, atraumatic. Eyes: Pupils equal round and reactive to light, extra-ocular motions intact. Lids and lashes normal. Conjunctiva and sclera are non-icteric and not injected. Cornea within normal limits. Periorbital areas with no swelling, redness, or edema. ENT: Nares patent. No nasal discharge, no septal abnormalities noted. Tympanic membranes are normal and external auditory canals are clear. Oropharynx with no redness, swelling, or masses, exudates, or evidence of obstruction, uvula midline. Mucous membranes moist. Cardiovascular: Regular rate and rhythm with a normal S1 and S2. No gallops, murmurs, or rubs. Normal PMI, no JVD. No pulse deficits. Respiratory: Lungs have equal breath sounds bilaterally, clear to auscultation and percussion. No rales, rhonchi or wheezes noted. No increased work of breathing, no retractions or nasal flaring. Skin: Warm, dry with normal turgor. Normal color with no rashes, no lesions, and no evidence of cellulitis. MS/ Extremity: Pulses equal, no cyanosis. Neurovascular intact. Full, normal range of motion., bilateral aka Neuro: Awake and alert, GCS 15, oriented to person, place, time, and situation. Cranial nerves II-XII grossly intact. Motor strength 5/5 in all extremities. Sensory grossly intact. Cerebellar exam normal. Normal gait. 00:55 Neck: External neck: is normal, no acute changes, C-spine: appears grossly normal, no acute changes, 00:55 Chest/axilla: Inspection: normal, Palpation: tenderness, that is mild, of the right lateral posterior chest and right lateral anterior chest, Axilla: are normal, 00:55 Abdomen/GI: Inspection: abdomen appears normal, Bowel sounds: normal, Palpation: nontender, Liver: no appreciated palpable abnormalities, Hernia: not appreciated, 00:55 Musculoskeletal/extremity: ROM: no acute changes, intact in all extremities, Circulation is intact in all extremities. Sensation intact. Compartment Syndrome exam of affected extremity: is normal. Weight bearing: able to fully bear weight, Vital Signs: 11/29 21:41 BP 140 / 93; Pulse 89; Resp 18; Temp 97.3; Pulse Ox 99% ; Weight 90.72 kg; Height 5 ft. bm8 9 in. ; Pain 9/10; 11/30 00:55 BP 131 / 89; Pulse 84; Resp 17 S; Pulse Ox 99% on R/A; bm8 03:34 BP 137 / 88; Pulse 89; Resp 17 S; Pulse Ox 100% on R/A; lg3 11/29 21:41 Body Mass Index 29.53 (90.72 kg, 175.26 cm) bm8 11/29 21:41 Pain Scale: Adult bm8 Regi Coma Score: 00:57 Eye Response: spontaneous(4). Motor Response: obeys commands(6). Verbal Response: ryann oriented(5). Total: 15. MDM: 11/29 21:45 Medical Screening Exam initiated ryann 21:45 Medical Screening Exam initiated ryann 11/30 00:57 Differential diagnosis: Contusion of Hematoma on Laceration of Intracranial bleed- ryann subdural, epidural, subarachnoid, intracerebral, Concussion without LOC. cerebral contusion. Data reviewed: vital signs, nurses notes, lab test result(s), radiologic studies, CT scan. Consideration of Admission/Observation Escalation of care including admission/observation considered. I considered the following discharge prescriptions or medication management in the emergency department Medications were administered in the Emergency Department. See MAR. Independent interpretation of the following test(s) in the Emergency Department CT Scan: My interpretation is ct trauma. Test considered but Not performed: Ultrasound no fast. Historians other than the Patient: pt well informed. Care significantly affected by the following chronic conditions: depression, gerd, anxiety , asthma. Counseling: I had a detailed discussion with the patient and/or guardian regarding the historical points, exam findings, and any diagnostic results supporting the discharge/admit diagnosis, the presence of at least one elevated blood pressure reading (>120/80) during this emergency department visit, lab results, radiology results, the need for outpatient follow up, for definitive care, a family practitioner. 11/29 21:47 Order name: Basic Metabolic Panel; Complete Time: 01:45 [facility] 11/29 21:47 Order name: CBC with Diff; Complete Time: 01: [facility] 11/29 21:47 Order name: Test, Urine; Complete Time: 01: [facility] 11/29 21:47 Order name: Type And Screen; Complete Time: 02:31 [facility] 11/29 21:47 Order name: Urinalysis w/ reflexes; Complete Time: 01:27 [facility] 11/29 21:47 Order name: Lipase; Complete Time: 01:45 [facility] 11/29 21:47 Order name: LFT's; Complete Time: 01:45 [facility] 11/29 21:57 Order name: Chest Abdomen Pelvis W Cont EDIN 11/29 21:58 Order name: Head C Spine Mpr Wo Con EDIN 11/29 21:47 Order name: Labs collected and sent; Complete Time: 00:56 [facility] Administered Medications: 01:19 Drug: fentaNYL (PF) IVP 25 mcg IVP once Route: IVP; Site: right forearm; cg 02:34 Follow up: Response: No adverse reaction; Marked relief of symptoms bm8 01:19 Drug: Ondansetron IVP 4 mg IVP once; over 2 minutes Route: IVP; Site: right forearm; cg 02:34 Follow up: Response: No adverse reaction bm8 01:20 Drug: NS 0.9% IV 1000 ml IV at 1 bolus Per protocol; to be given as a bolus over 60 cg minutes Route: IV; Rate: 1 bolus; Site: right forearm; 02:34 Follow up: Response: No adverse reaction; IV Status: Completed infusion; IV Intake: bm8 1000ml 02:11 Drug: Potassium PO Effervescent Tablet 25 mEq PO once; dissolve in 4 ounces of water or kj2 juice Route: PO; 02:34 Follow up: Response: No adverse reaction bm8 Disposition Summary: 11/30/24 02:32 Discharge Ordered Notes: Location: Home ryann Problem: new ryann Symptoms: have improved ryann Condition: Stable ryann Diagnosis - Fall on same level, unspecified ryann - Unspecified injury of head, initial encounter ryann - Strain of muscle, fascia and tendon at neck level, initial encounter ryann - Strain of muscle and tendon of back wall of thorax ryann - Strain of muscle and tendon of front wall of thorax ryann - Abdominal tenderness - contusion ryann - Hypokalemia ryann Followup: ryann - With: Private Physician - When: 2 - 3 days - Reason: Recheck today's complaints, Continuance of care, Re-evaluation by your physician Followup: ryann - With: Vivek Altamirano MD - When: 2 - 3 days - Reason: Recheck today's complaints, Re-evaluation by your physician Discharge Instructions: - Discharge Summary Sheet ryann - Abdominal Pain, Adult ryann - Potassium Content of Foods ryann - Head Injury, Adult ryann - Musculoskeletal Pain ryann - Abdominal Pain, Adult, [id number] ryann - Fall Prevention in the Home, Adult, [id number] ryann - Head Injury, Adult, [id number] ryann - Hypokalemia ryann Forms: - Medication Reconciliation Form ryann - Antibiotic Education ryann - Prescription Opioid Use ryann - Patient Portal Instructions ryann - Leadership Thank You Letter ryann - Work release form lg3 Prescriptions: - Ibuprofen 600 mg Oral tablet - take 1 tablet ORAL route every 6 hours As needed take with food; 2 tablet; ryann Refills: 0, Product Selection Permitted - methocarbamol 750 mg Oral tablet - take 1 tablet ORAL route 4 times per day; 28 tablet; Refills: 0, Product ryann Selection Permitted Signatures: Dispatcher [employer] Piero Gusman MD MD cha Garcia, Cindy, RN IBETH Abel Altamirano RN IBETH bm8 Joanne Snow RN RN [id number] Corrections: (The following items were deleted from the chart) 11/29 21:47 21:47 BASIC METABOLIC PANEL+C.LAB.BRZ ordered. EDMS EDMS 21:47 21:47 CBC+H.LAB.BRZ ordered. EDMS EDMS 21:47 21:47 Test, Urine+UC.LAB.BRZ ordered. EDMS EDMS 21:47 21:47 TYPE AND SCREEN+BB.LAB.BRZ ordered. EDMS EDMS 21:47 21:47 Urinalysis+U.LAB.BRZ ordered. EDMS EDMS 21:47 21:47 LIPASE+C.LAB.BRZ ordered. EDMS EDMS :47 21:47 HEPATIC FUNCTION+C.LAB.BRZ ordered. EDMS EDMS 21:47 21:47 Head C Spine CAP W Con+CT.RAD.BRZ ordered. EDMS EDMS 21:47 21:42 PMHx: "not supposed to take NSAIDS per GI" (shoulder surgery); bm8 bm8
[2024-11-30 03:44] VITALS: TEMP 97.3
[2024-11-30 03:46] VITALS: BP 137/88; O2SAT 100
--- NOTE | 2024-11-30 04:16 | RAD REPORT ---
EXAM DESCRIPTION: CT HEAD AND CERVICAL SPINE WITHOUT IV CONTRAST 11/30/2024 2:50 AM CDT CLINICAL HISTORY: 44 years, Female, Pain. COMPARISON: None. TECHNIQUE: CT imaging of the head and cervical spine were performed without IV contrast. Subsequent 2 -D multiplanar reformats were generated in the sagittal and coronal plane and reviewed. This exam was performed according to our departmental dose-optimization program which includes use of Automated Exposure Control, adjustment of the mA and/or kV according to patient size and/or use of iterative reconstruction technique. Contrast: No intravenous contrast. FINDINGS: Head: Brain: Brain parenchyma as well as the adams-white matter differentiation demonstrate to be within nor mal limits. There is no evidence for acute intraparenchymal hemorrhage. There is no midline shifts and/or mass effect. No focal areas of hypodensities. Ventricles/CSF spaces: Normal size and morphology. Orbits: Normal. Paranasal sinuses: Imaged paranasal sinuses are clear. Mastoids/middle ears: Clear. Bones: Calvarium, skull base, and imaged facial bones are normal. Scalp/facial soft tissues: No acute scalp or soft tissue injury. Cervical spine: Curvature: There is straightening of the cervical spine perhaps related to position and/or muscle spa sm. Otherwise the alignment, of the vertebral bodies are normal. Bones: There is no evidence of fracture or subluxation. Discs: There is very minimal degenerative disc disease with minimal anterior spondylosis and posterio r osteophyte complex at C3/C4 and C5/C7. There is there is findings perhaps corresponding to mild congenital spinal canal narrowing at C3-C6. Joints: The uncovertebral joints demonstrate unremarkable. Soft tissues: There is no prevertebral soft tissue swelling. Sagittal coronal reformatted images demonstrate no subluxation or bony abnormalities. Lung apices: The lung apices demonstrate to be within normal limits. IMPRESSION: No acute intracranial pathology. No evidence for acute fracture or subluxation of the cervical spine. Straightening of the cervical spine perhaps related to position and/or muscle spasm. 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 Minimal degenerative disc disease at C3/C4 and C5/C7. Electronically signed by: Jose Luis Higuera MD 11/30/2024 03:17 AM CDT Due to temporary technical issues with the [employer] reporting system, reports are being walter d by the in-house radiologist without review as a courtesy to ensure prompt reporting the interpreting radiologist is fully responsible for the content of the report. Transcribed Date/Time: 11/30/2024 4:16 AM
--- NOTE | 2024-11-30 04:16 | RAD REPORT ---
EXAM DESCRIPTION: CT CHEST ABDOMEN PELVIS WITH IV CONTRAST 11/30/2024 2:53 AM CDT CLINICAL HISTORY: 44 years, Female, Trauma. COMPARISON: XR Chest 10/12/2023 and CTA Chest Abdomen Pelvis 08/24/2023. PROCEDURE: Contrast-enhanced images of the chest, abdomen and pelvis were performed from the lung apices to the ischial tuberosities after the administration of IV contrast. In addition multiplanar reformats in the coronal and sagittal plane were obtained and reviewed. An individualized dose optimization technique, Automated Exposure Control, was utilized for the perfo rmed procedure. FINDINGS: CHEST: Lower neck: Visualized thyroid gland and soft tissues are normal. No adenopathy. Lungs: The lung parenchyma demonstrate to be clear. No evidence of airspace or interstitial process. No significant pulmonary nodules and/or masses identified. No focal areas of consolidation an/or lung contusion. Airways: The trachea mainstem bronchus demonstrate to be unremarkable. Pleural: There are no pleural effusion. No evidence for pneumothorax. Hemidiaphragms are normally pos itioned. Mediastinum and lymph nodes: No significant mediastinal and/or hilar lymphadenopathy. The axillary re gions demonstrate to be clear. Heart: Normal size. No pericardial thickening or effusion. Coronary: No significant coronary artery calcifications. Aorta: The thoracic aorta demonstrate to be within normal limits. No evidence for aneurysm. Pulmonary arteries: The central pulmonary arteries demonstrate to be within normal limits. No evidenc e for significant central filling defect to suggest pulmonary embolus. Osseous structures and chest wall: Incidentally is noted presence of ORIF of the left humeral head/pr oximal left humerus. The visualized portions of the clavicles, right humeral head and bilateral scapulas demonstrate to be within normal limits. No evidence for acute bony injuries. The sternum, thoracic spine, spinous process and bilateral ribs demonstrate to be within normal limit s. No evidence for acute bony injuries. ABDOMEN AND PELVIS: Liver: The liver demonstrated presence of decreased attenuation corresponding to mild fatty infiltration. No evidence for solid organ injury. Gallbladder: The gallbladder is identified contracted most likely related to lack of fasting. No sign ificant filling defects and/or abnormality is identified. Adrenal glands: The adrenal glands demonstrate to be within normal limits. No evidence for solid orga n injury. Pancreas: The pancreas demonstrate to be within normal limits. No evidence for solid organ injury. Spleen: The spleen demonstrate to be within normal limits. No evidence for solid organ injury. Kidneys: The kidneys demonstrate normal uptake of contrast media. There is no evidence for nephroli thiasis and/or hydronephrosis. No evidence for extravasation of contrast. No evidence for solid organ injury GI: Grossly the unopacified stomach, small bowel and large bowel demonstrate to be within normal limi ts. No evidence for bowel dilatation and/or free air. The appendix is normal. The left-sided colon demonstrate to be decompressed with no gross abnormalities. No abnormalities within the peritoneum an d/or omentum. : The urinary bladder demonstrate to be partially distended with no gross abnormalities. Genitalia: The uterus demonstrate to be within normal limits. There are normal adnexal structures. Abdominal aorta: The aorta demonstrate to be within normal limits. Retroperitoneum: There is no retroperitoneal lymphadenopathy. There is no evidence for ascites and/or retroperitoneal hemorrhage. Bones: The vertebral bodies of the lumbar spine demonstrate to be within normal limits. No evidence f or acute fractures. The spinous processes, transverse processes demonstrate to be unremarkable. The sacrum, sacroiliac joint, iliac bones, superior and inferior pubic rami as well as bilateral hip join ts demonstrate to be within normal limits. No evidence for acute bony injuries. Soft tissues: The soft tissues demonstrate to be unremarkable. IMPRESSION: No evidence for acute traumatic injury to the chest, abdomen or pelvis. Mild fatty infiltration of the liver. Status post ORIF of the left humeral head/proximal left humerus. Electronically signed by: Jose Luis Higuera MD 11/30/2024 03:20 AM CDT Due to temporary technical issues with the [employer] reporting system, reports are being walter d by the in-house radiologist without review as a courtesy to ensure prompt reporting the interpreting radiologist is fully responsible for the content of the report. Transcribed Date/Time: 11/30/2024 4:16 AM
== END 2024-11-30 03:36 | disposition home or self-care (01) ==
LOC: ER 21:11
DX: S16.1XXA Strain of muscle, fascia and tendon at neck level, initial encounter (principal); S29.012A Strain of muscle and tendon of back wall of thorax, initial encounter; S29.011A Strain of muscle and tendon of front wall of thorax, initial encounter; S30.1XXA Contusion of abdominal wall, initial encounter; E87.6 Hypokalemia; W18.30XA Fall on same level, unspecified, initial encounter; Z72.0 Tobacco use
CPT/HCPCS: 85025; 80048; 36415; 86900; 86850; 81025; 86901; 80076; 81003; 83690; 70450; 72125; 71260; 74177; Q9967; J3010; J2405; 96361; 96374; 96375; 99284; J7030